=== PATIENT | male | born 1940 | race Caucasian/White ===

== ENCOUNTER 2017-10-02 18:48 | Inpatient (IN) | payer MEDICARE, MEDICAID ==
[2017-10-02 21:20] VITALS: BP 117/66
[2017-10-02] MEDS ORDERED: Magnesium Hydroxide (MOM) 30 mL UDC PO PRN (22:05)
[2017-10-03 06:24] LABS: % BASOPHILS 1.1 % (0.0-2.0); % EOSINOPHILS 4.5 % (0.0-5.0); % LYMPHOCYTES 21.8 % (20.0-50.0); % MONOCYTES 7.7 % (2.0-10.0); % NEUTROPHILS 64.9 % (40.0-80.0); BASOPHILE ABSOLUTE 0.1 Th/cumm (0-0.2); EOSINOPHILE ABSOLUTE 0.3 Th/cmm (0.1-0.4); HEMATOCRIT 42.8 % (41.0-60); HEMOGLOBIN 13.8 gm/dL (12-16); LYMPHOCYTE ABSOLUTE 1.5 Th/cmm (1.5-3.0); MEAN CELL VOLUME 89.4 fl (80-99); MEAN CORPUSCULAR HEMOGLOBIN 28.9 pg (27.0-31.0); MEAN CORPUSCULAR HGB CONC 32.4 pg (28.0-36.0); MEAN PLATELET VOLUME 9.6 fl; MONOCYTE ABSOLUTE 0.5 Th/cmm (0.3-1.0); NEUTROPHILE ABSOLUTE 4.4 Th/cmm (1.8-8.0); PLATELET COUNT 223 Th/cmm (150-400); RED BLOOD COUNT 4.78 Mil/cmm (3.80-5.80); RED CELL DISTRIBUTION WIDTH 15.4 % (11.5-20.0); WHITE BLOOD COUNT 6.8 Th/cmm (4.8-10.8)
[2017-10-03 06:40] LABS: ANION GAP 13.5 (7.0-16.0); BUN - UREA NITROGEN 18 mg/dL (7-25); CALCIUM SERUM 9.3 mg/dL (8.6-10.3); CARBON DIOXIDE 23.3 mEq/L (21.0-31.0); CHLORIDE 102 mEq/L (98-107); GLUCOSE 224 mg/dL (70-105); POTASSIUM SERUM 3.8 mEq/L (3.5-5.1); SODIUM SERUM 135 mEq/L (136-145)
--- NOTE | 2017-10-03 08:12 | History and Physical ---
History of Present Illness - HPI Chief Complaint: Psychosis HPI: 76 y/o male who was transferred from [facility] to [facility] for Psychosis. He was found in his backyard naked and confused. patient was BIBA after family notified EMS. Patient had no trauma noted. He stopped eating regularly per family. Patient was cooperative but restless. FBS was noted to be 426. Patient has a h/o DM on Lantus, h/o alcohol abuse and has history of KEN and dehydration. PMH includes progressive dementia, schizophrenia, acute encephalopathy Vital Signs: Last Vital Signs Temp 97.9 F 10/03/17 06:33 Pulse 90 10/03/17 06:33 Resp 19 10/03/17 06:33 BP 120/69 10/03/17 06:33 Pulse Ox 97 10/03/17 06:33 Past Medical History Cardiovascular: Report: No Pertinent Hx Pulmonary: Report: No Pertinent Hx PANMAN: Report: Dementia GI: Report: No Pertinent Hx Psych: Report: Psychosis, Schizophrenia Musculoskeletal: Report: No Pertinent Hx Rheumatologic: Report: No pertinent Hx Infectious Disease: Report: No Pertinent Hx Renal/: Report: No Pertinent Hx Endocrine: Report: Diabetes Dermatology: Report: No Pertinent Hx - Past Surgical History Past Surgical History: No pertinent Hx Social History Smoke: No Alcohol: Other (h/o of acute alcohol withdrawal) Drugs: None Lives: With Family - Medications Home Medications: Home Medication Medication Instructions Recorded Type Acetaminophen [Tylenol] 650 mg PO Q6HR PRN 10/02/17 History Heparin Sodium [Heparin*] See Protocol SUBQ Q12HR 10/02/17 History Insulin Glargine, Recombinan 15 unit SQ DAILY 10/02/17 History [Lantus] Insulin Lispro [Humalog] See Protocol SUBQ ACHS 10/02/17 History Lorazepam [Ativan] 0.5 mg PO Q6HR PRN 10/02/17 History Zolpidem Tartrate [Ambien] 5 mg PO HS PRN 10/02/17 History - Allergies Allergies/Adverse Reactions: Allergies Allergy/AdvReac Type Severity Reaction Status Date / Time No Known Allergies Allergy Verified 10/02/17 21:28 Review of Systems - Review of Systems Constitutional: Report: No Significant Eyes: Report: No Significant ENT: Report: No Significant Respiratory: Report: No Significant Cardiovascular: Report: No Significant Gastrointestinal: Report: No Significant Genitourinary: Report: No Significant Musculoskeletal: Report: No Significant Skin: Report: No Significant Neurological: Report: Other (psychosis) Physical Exam - Physical Exam HEENT: Report: Ears Nose Throat within normal limits, Pharnyx within normal limits Neck: Report: Within normal limits Cardiovascular Systems: Report: +s1/s2 noted, Regular, Rate and Rhythm Respiratory: Report: Breath Sounds are within normal limits Abdomen: Report: Non-tender to palpation Back: Report: Inspection of back is within normal limits. Skin: Report: Color of skin is within normal limits Neuro/Psych: Report: Mood affect is within normal limits, A+Ox3 - Lab Results All Lab Results last 24 hours: Laboratory Results - last 24 hr 10/03/17 10/03/17 06:10 06:10 WBC 6.8 RBC 4.78 Hgb 13.8 Hct 42.8 MCV 89.4 MCH 28.9 MCHC Differential 32.4 RDW 15.4 Plt Count 223 MPV 9.6 Neutrophils % 64.9 Lymphocytes % 21.8 Monocytes % 7.7 Eosinophils % 4.5 Basophils % 1.1 Sodium 135 L Potassium 3.8 Chloride 102 Carbon Dioxide 23.3 Anion Gap 13.5 BUN 18 Creatinine 1.0 Est GFR ( Amer) TNP Est GFR (Non-Af Amer) TNP BUN/Creatinine Ratio 18.0 Glucose 224 H Calcium 9.3 - Assessment Assessment: psychosis dementia schizophrenia h/o encephalopathy h/o alcohol withdrawal diabetes mellitus type 2 on insulin - Plan Plan: admit to [facility] will add TSH, Lipid profile, A1c to current labs. accucheck ac and hs low dose sliding scale.
[2017-10-03 08:29] LABS: CHOLESTEROL 144 mg/dL (<200); HDL -HIGH DENSITY LIPOPROTEIN 46 mg/dL (23-92); TRIGLYCERIDES 149 mg/dL (<150)
[2017-10-03] MEDS: Insulin Detemir 100 units/mL 10mL Vial SUBQ SCH (09:25)
[2017-10-03] MEDS ORDERED: Haloperidol Lactate 5 mg/mL 1mL Vial IM ONE (09:30)
[2017-10-03] MEDS ORDERED: Haloperidol Lactate 5 mg/mL 1mL Vial ONE (09:36)
[2017-10-03] MEDS: INSULIN ASPART SLIDING SCALE 100 UNITS/ML UNIT SUBQ SCH ×3 (17:09→21:00)
[2017-10-03 20:08] LABS: A1C % 9.4 % (4.0-6.0)
--- NOTE | 2017-10-03 22:25 | Psychosocial Evaluation ---
DATE OF SERVICE: PSYCHIATRIC INITIAL EVALUATION AND MENTAL STATUS EXAM PATIENT'S AGE: 76. SEX: Male. PHYSICIAN: Flora Rainey M.D., M.P.H. CHIEF COMPLAINT: Confusion and agitation. HISTORY OF PRESENT ILLNESS: The patient is a 76-year-old male who was found in the backyard confused and naked. The patient was brought into the hospital. The patient was agitated when he came into the hospital. He is a Macanese speaking and I got help with translation from the staff. The patient is currently still confused. He was talking to himself, laughing inappropriately. He was not able to tell me where he lives. Also, when I asked him about if he have any children, he also was not able to answer. Also, when asked about his date, he say December 27, but he was not able to say the year. Apparently, the patient has been having dementia. He also was clubbing his hand and he has been talking to imaginary objects and also according to service desk director, who was not making any sense with his answers. PAST PSYCHIATRIC HISTORY: Not known. PAST MEDICAL HISTORY: No known medical problems, apart from reviewing records from [facility]. The patient was given Haldol and also was given Pepcid and insulin. SOCIAL HISTORY: Not known at this time, but the patient was found in the backyard naked prior to his admission. No known history of alcohol or street drugs. Also, according to the report has not been eating and may be drinking alcohol prior to his admission. He also was hypertensive and tachycardic on the Emergency Room in the other hospital. ALLERGIES: No known allergies. MENTAL STATUS EXAMINATION: The patient appears his stated age. Anxious. Speaks Macanese. Rambling and according to the service desk director does not make sense and disorganized and the patient is confused. The patient did not answer question regarding hallucinations or delusions, but patient is actively hallucinating. The patient did not answer questions regarding suicide or homicide. The patient is alert and disoriented to time, place, person and situation. Impaired immediate, recent and remote memories and he could not even remember his date. Poor insight. Poor judgment. ASSESSMENT: PRIMARY DIAGNOSIS: Unspecified psychosis. SECONDARY DIAGNOSIS: Dementia, moderate to severe, with psychotic features. TREATMENT PLAN: We will monitor the patient's behavior and condition closely. We will start the patient on Seroquel and we will adjust the dose. ESTIMATED LENGTH OF STAY: 5-7 days. THE PATIENT'S STRENGTHS AND WEAKNESSES: The patient's strength is not clear at this time. Weakness is ineffective coping and his psychosis. AFTER DISCHARGE PLAN: Outpatient treatment and followup will continue as an outpatient. CRITERIA FOR DISCHARGE: The patient will not be psychotic and stabilize psychotropic medications. Also, placement if needed. [facility]# [id number]
--- NOTE | 2017-10-04 06:26 | General Progress Note ---
Subjective - Review of Systems Service Date: 10/04/17 Subjective: Awake, alert, afebrile. No acute distress VS T97.8 P95 R20 Objective - Results Result Diagrams: 10/03/17 06:10 10/03/17 06:10 Recent Labs: Laboratory Last Values WBC 6.8 Th/cmm (4.8-10.8) 10/03/17 06:10 RBC 4.78 Mil/cmm (3.80-5.80) 10/03/17 06:10 Hgb 13.8 gm/dL (12-16) 10/03/17 06:10 Hct 42.8 % (41.0-60) 10/03/17 06:10 MCV 89.4 fl (80-99) 10/03/17 06:10 MCH 28.9 pg (27.0-31.0) 10/03/17 06:10 MCHC Differential 32.4 pg (28.0-36.0) 10/03/17 06:10 RDW 15.4 % (11.5-20.0) 10/03/17 06:10 Plt Count 223 Th/cmm (150-400) 10/03/17 06:10 MPV 9.6 fl 10/03/17 06:10 Neutrophils % 64.9 % (40.0-80.0) 10/03/17 06:10 Lymphocytes % 21.8 % (20.0-50.0) 10/03/17 06:10 Monocytes % 7.7 % (2.0-10.0) 10/03/17 06:10 Eosinophils % 4.5 % (0.0-5.0) 10/03/17 06:10 Basophils % 1.1 % (0.0-2.0) 10/03/17 06:10 Sodium 135 mEq/L (136-145) L 10/03/17 06:10 Potassium 3.8 mEq/L (3.5-5.1) 10/03/17 06:10 Chloride 102 mEq/L (98-107) 10/03/17 06:10 Carbon Dioxide 23.3 mEq/L (21.0-31.0) 10/03/17 06:10 Anion Gap 13.5 (7.0-16.0) 10/03/17 06:10 BUN 18 mg/dL (7-25) 10/03/17 06:10 Creatinine 1.0 mg/dL (0.7-1.3) 10/03/17 06:10 Est GFR ( Amer) TNP 10/03/17 06:10 Est GFR (Non-Af Amer) TNP 10/03/17 06:10 BUN/Creatinine Ratio 18.0 10/03/17 06:10 Glucose 224 mg/dL (70-105) H 10/03/17 06:10 POC Glucose 253 MG/DL (70 - 105) H 10/03/17 19:53 Hemoglobin A1c % 9.4 % (4.0-6.0) H 10/03/17 06:10 Calcium 9.3 mg/dL (8.6-10.3) 10/03/17 06:10 Triglycerides 149 mg/dL (<150) 10/03/17 06:10 Cholesterol 144 mg/dL (<200) 10/03/17 06:10 LDL Cholesterol Direct 93 mg/dL (75-193) 10/03/17 06:10 HDL Cholesterol 46 mg/dL (23-92) 10/03/17 06:10 TSH 1.66 uIU/ml (0.34-5.60) 10/03/17 06:10 - Physical Exam Vitals and I&O: Vital Signs Temp 0 F 10/04/17 05:16 Pulse 95 10/03/17 21:22 Resp 20 10/03/17 21:22 BP 132/130 10/03/17 21:22 Pulse Ox 95 10/03/17 21:22 Intake & Output 10/03/17 10/03/17 10/04/17 06:59 18:59 06:59 Intake Total 120 1200 360 Balance 120 1200 360 Weight (lbs) 71.033 kg Intake: Oral 120 1200 360 Other: # Voids 3 3 # Bowel Movements 1 0 Active Medications: Current Medications Acetaminophen (Tylenol) 650 mg PO Q6HR PRN PRN Reason: mild to moderate pain Stop: 12/01/17 22:18 Last Admin: 10/03/17 17:08 Dose: 650 mg Famotidine (Pepcid) 20 mg PO BID IMMANUEL Stop: 12/02/17 08:59 Last Admin: 10/03/17 17:09 Dose: 20 mg Heparin Sodium (Porcine) (Heparin) 5,000 units SUBQ Q12HR IMMANUEL PRN Reason: Protocol Stop: 12/02/17 08:59 Last Admin: 10/03/17 21:00 Dose: 5,000 units Insulin Aspart (Novolog Insulin Sliding Scale) 0 units SUBQ ACHS IMMANUEL PRN Reason: Protocol Stop: 12/02/17 11:29 Last Admin: 10/03/17 21:00 Dose: 4 units Insulin Detemir (Levemir Insulin) 15 units SUBQ DAILY IMMANUEL Stop: 12/02/17 08:59 Last Admin: 10/03/17 09:25 Dose: 15 units Lorazepam (Ativan) 0.5 mg PO Q6HR PRN; Protocol PRN Reason: agitation Stop: 12/01/17 22:18 Last Admin: 10/03/17 23:00 Dose: 0.5 mg Magnesium Hydroxide (Milk Of Magnesia) 30 ml PO HS PRN PRN Reason: Constipation Metformin HCl (Glucophage) 500 mg PO DAILY [facility] Stop: 12/03/17 08:59 Quetiapine Fumarate (Seroquel) 25 mg PO DAILY IMMANUEL PRN Reason: Protocol Stop: 12/02/17 08:59 Last Admin: 10/03/17 09:26 Dose: 25 mg Zolpidem Tartrate (Ambien) 5 mg PO HS PRN PRN Reason: insomnia Stop: 12/01/17 22:18 General: Alert, Oriented x3, No acute distress HEENT: Atraumatic, PERRLA, EOMI Neck: Supple Cardiovascular: Regular rate, Normal S1, Normal S2 Lungs: Clear to auscultation Abdomen: Bowel sounds, Soft Assessment/Plan - Assessment Assessment: psychosis dementia schizophrenia h/o encephalopathy h/o alcohol withdrawal diabetes mellitus type 2 on insulin - Plan Plan: admit to [facility] will add TSH, Lipid profile, A1c to current labs. accucheck ac and hs low dose sliding scale.
[2017-10-04] MEDS: INSULIN ASPART SLIDING SCALE 100 UNITS/ML UNIT SUBQ SCH ×4 (06:58→21:00)
[2017-10-04] MEDS: Insulin Detemir 100 units/mL 10mL Vial SUBQ SCH (09:07)
[2017-10-05] MEDS: INSULIN ASPART SLIDING SCALE 100 UNITS/ML UNIT SUBQ SCH ×4 (06:56→21:52)
--- NOTE | 2017-10-05 11:04 | Progress Notes ---
DATE: SUBJECTIVE: The patient was seen, chart reviewed and discussed with staff. The patient seen in day room in a Kristina chair. Attempts to speak with the patient with a dredge mate, but was unsuccessful. The patient is actively psychotic, laughing inappropriately and very disorganized. He has ever been compliant with his medications. PLAN: The patient continues to be actively psychotic, confused, unable to make a safer realistic discharge so that he will require continued inpatient care center treatment. We will monitor patient on a daily basis for response to medication and titrate meds as needed. JOB# [id number]
[2017-10-05] MEDS: Insulin Detemir 100 units/mL 10mL Vial SUBQ SCH (12:40)
--- NOTE | 2017-10-05 18:27 | General Progress Note ---
Subjective - Review of Systems Service Date: 10/05/17 Subjective: Awake, alert, afebrile. No acute distress VS T97.7 P93 R18 BP140/76 BS 253-->254-->210 Objective - Results Result Diagrams: 10/03/17 06:10 10/03/17 06:10 Recent Labs: Laboratory Last Values WBC 6.8 Th/cmm (4.8-10.8) 10/03/17 06:10 RBC 4.78 Mil/cmm (3.80-5.80) 10/03/17 06:10 Hgb 13.8 gm/dL (12-16) 10/03/17 06:10 Hct 42.8 % (41.0-60) 10/03/17 06:10 MCV 89.4 fl (80-99) 10/03/17 06:10 MCH 28.9 pg (27.0-31.0) 10/03/17 06:10 MCHC Differential 32.4 pg (28.0-36.0) 10/03/17 06:10 RDW 15.4 % (11.5-20.0) 10/03/17 06:10 Plt Count 223 Th/cmm (150-400) 10/03/17 06:10 MPV 9.6 fl 10/03/17 06:10 Neutrophils % 64.9 % (40.0-80.0) 10/03/17 06:10 Lymphocytes % 21.8 % (20.0-50.0) 10/03/17 06:10 Monocytes % 7.7 % (2.0-10.0) 10/03/17 06:10 Eosinophils % 4.5 % (0.0-5.0) 10/03/17 06:10 Basophils % 1.1 % (0.0-2.0) 10/03/17 06:10 Sodium 135 mEq/L (136-145) L 10/03/17 06:10 Potassium 3.8 mEq/L (3.5-5.1) 10/03/17 06:10 Chloride 102 mEq/L (98-107) 10/03/17 06:10 Carbon Dioxide 23.3 mEq/L (21.0-31.0) 10/03/17 06:10 Anion Gap 13.5 (7.0-16.0) 10/03/17 06:10 BUN 18 mg/dL (7-25) 10/03/17 06:10 Creatinine 1.0 mg/dL (0.7-1.3) 10/03/17 06:10 Est GFR ( Amer) TNP 10/03/17 06:10 Est GFR (Non-Af Amer) TNP 10/03/17 06:10 BUN/Creatinine Ratio 18.0 10/03/17 06:10 Glucose 224 mg/dL (70-105) H 10/03/17 06:10 POC Glucose 210 MG/DL (70 - 105) H 10/05/17 05:55 Hemoglobin A1c % 9.4 % (4.0-6.0) H 10/03/17 06:10 Calcium 9.3 mg/dL (8.6-10.3) 10/03/17 06:10 Triglycerides 149 mg/dL (<150) 10/03/17 06:10 Cholesterol 144 mg/dL (<200) 10/03/17 06:10 LDL Cholesterol Direct 93 mg/dL (75-193) 10/03/17 06:10 HDL Cholesterol 46 mg/dL (23-92) 10/03/17 06:10 TSH 1.66 uIU/ml (0.34-5.60) 10/03/17 06:10 - Physical Exam Vitals and I&O: Vital Signs Temp 97.7 F 10/05/17 14:38 Pulse 93 10/05/17 14:38 Resp 18 10/05/17 14:38 BP 140/76 10/05/17 14:38 Pulse Ox 97 10/05/17 14:38 Intake & Output 10/04/17 10/05/17 10/05/17 18:59 06:59 18:59 Intake Total 500 240 480 Output Total 1 Balance 500 240 479 Intake: Oral 500 240 480 Output: Urine 1 Other: # Voids 2 1 1 # Bowel Movements 1 Active Medications: Current Medications Acetaminophen (Tylenol) 650 mg PO Q6HR PRN PRN Reason: mild to moderate pain Stop: 12/01/17 22:18 Last Admin: 10/03/17 17:08 Dose: 650 mg Famotidine (Pepcid) 20 mg PO BID IMMANUEL Stop: 12/02/17 08:59 Last Admin: 10/05/17 16:09 Dose: Not Given Heparin Sodium (Porcine) (Heparin) 5,000 units SUBQ Q12HR IMMANUEL PRN Reason: Protocol Stop: 12/02/17 08:59 Last Admin: 10/05/17 12:40 Dose: Not Given Insulin Aspart (Novolog Insulin Sliding Scale) 0 units SUBQ ACHS IMMANUEL PRN Reason: Protocol Stop: 12/02/17 11:29 Last Admin: 10/05/17 16:09 Dose: Not Given Insulin Detemir (Levemir Insulin) 15 units SUBQ DAILY [facility] Stop: 12/02/17 08:59 Last Admin: 10/05/17 12:40 Dose: Not Given Lorazepam (Ativan) 0.5 mg PO Q6HR PRN; Protocol PRN Reason: agitation Stop: 12/01/17 22:18 Last Admin: 10/04/17 20:54 Dose: 0.5 mg Magnesium Hydroxide (Milk Of Magnesia) 30 ml PO HS PRN PRN Reason: Constipation Metformin HCl (Glucophage) 500 mg PO DAILY [facility] Stop: 12/03/17 08:59 Last Admin: 10/05/17 12:40 Dose: Not Given Quetiapine Fumarate (Seroquel) 25 mg PO DAILY IMMANUEL PRN Reason: Protocol Stop: 12/02/17 08:59 Last Admin: 10/05/17 12:40 Dose: Not Given Zolpidem Tartrate (Ambien) 5 mg PO HS PRN PRN Reason: insomnia Stop: 12/01/17 22:18 Last Admin: 10/04/17 20:55 Dose: 5 mg General: Alert, Oriented x3, No acute distress HEENT: Atraumatic, PERRLA, EOMI Neck: Supple Cardiovascular: Regular rate, Normal S1, Normal S2 Lungs: Clear to auscultation Abdomen: Bowel sounds, Soft Extremities: no Clubbing, no Cyanosis, no Edema Assessment/Plan - Assessment Assessment: psychosis dementia schizophrenia h/o encephalopathy h/o alcohol withdrawal diabetes mellitus type 2 on insulin elevated Blood pressure elevated ... - Plan Plan[facility] will add TSH, Lipid profile, A1c to current labs. accucheck ac and hs low dose sliding scale. add Clonidine 0.1mg PO q8 increase Levemir 20mg units SQ Nutritional Asmnt/Malnutr-PDOC - Dietary Evaluation Malnutrition Findings (Please click <Entered> for more info): Nutritional Asmnt/Malnutrition Start: 10/04/17 10: 07 Text: Status: Complete Freq: Document 10/04/17 10:07 TC (Rec: 10/04/17 10:20 TC [email or web address]) Nutritional Asmnt/Malnutrition Patient General Information Nutritional Screening High Risk Diagnosis Psychosis NOS Pertinent Medical Hx/Surgical Hx Dementia, Schizophrenia, acute encephalopathy, diabetes Subjective Information Patient was transferred from [facility]. Per H&P, FBS was 426. Patient is primarily Greek speaking. Patient was asleep in bed at time of RD visit. Current Diet Order/ Nutrition Support 60gm CCHO Patient / S.O Not Indicated Pertinent Medications Pepcid, Novolog, Levemir, MOM, Metformin Pertinent Labs Glucose 156-253 since admission, HGA1C 9.4 Nutritional Hx/Data Height 1.78 m Height (Calculated Centimeters) 177.8 Current Weight (lbs) 70.76 kg Weight (Calculated Kilograms) 70.8 Weight (Calculated Grams) 46554.4 [place] Body Weight 166 % [place] Body Weight 93 Body Mass Index (BMI) 22.4 Recent Weight Change No Weight Status Approriate GI Symptoms GI Symptoms None Last BM 10/03 x 1 Difficult in: None Food Allergies No Cultural/Ethnic/Yazdanism Belief None noted Usual diet at home Unknown Skin Integrity/Comment: Anuel 18, dryness, area of concern, bruises Current %PO Good (75-100%) Estimated Nutritional Goals BEE in Kcals: Using Current wt Calories/Kcals/Kg (based on CBW 70.8kg, 25-30 kcal/kg) Kcals Calculated ~2107-7690 kcal/day Protein: Using Current wt Protein g/k gm/kg Protein Calculated ~70 gm/day Fluid: ml ~6836-3198 ml/day (1 ml/kcal) Nutritional Problem 1. Problem Problem Altered nutrition related lab values related to Etiology uncontrolled hyperglycemia aeb Signs/Symptoms: Glucose 156-253 since admission, HGA1C 9.4 Intervention/Recommendation Comments 1. Continue 60 gm CCHO diet as tolerated by patient. 2. MD to modify insulin regimen for optimal glycemic control. Expected Outcomes/Goals Expected Outcomes/Goals Oral intake >75% of meals, nutrition related labs WNL, weight stable F/U LR 10/11
--- NOTE | 2017-10-05 21:18 | Progress Notes ---
DATE: SUBJECTIVE: The patient seen, chart reviewed, and discussed with staff. The patient continues to be very irritated, confused, today, refusing to have any solid foods as well as his medications. He is extremely disorganized, unable to answer questions in a coherent manner. PLAN: The patient continues to be actively psychotic. It was felt that he is unable to make realistic discharge plan and will need continued inpatient care. We will monitor patient on a daily basis for response to medication and titrate medications as needed. [facility]# [id number]
[2017-10-06] MEDS: INSULIN ASPART SLIDING SCALE 100 UNITS/ML UNIT SUBQ SCH ×3 (07:01→22:00)
--- NOTE | 2017-10-06 08:03 | General Progress Note ---
Subjective - Review of Systems Service Date: 10/06/17 Subjective: Awake, alert, afebrile. No acute distress VS T97.8 P105 R18 BP150/83 BS 253-->254-->210-->483-->263 Objective - Results Result Diagrams: 10/03/17 06:10 10/03/17 06:10 Recent Labs: Laboratory Last Values WBC 6.8 Th/cmm (4.8-10.8) 10/03/17 06:10 RBC 4.78 Mil/cmm (3.80-5.80) 10/03/17 06:10 Hgb 13.8 gm/dL (12-16) 10/03/17 06:10 Hct 42.8 % (41.0-60) 10/03/17 06:10 MCV 89.4 fl (80-99) 10/03/17 06:10 MCH 28.9 pg (27.0-31.0) 10/03/17 06:10 MCHC Differential 32.4 pg (28.0-36.0) 10/03/17 06:10 RDW 15.4 % (11.5-20.0) 10/03/17 06:10 Plt Count 223 Th/cmm (150-400) 10/03/17 06:10 MPV 9.6 fl 10/03/17 06:10 Neutrophils % 64.9 % (40.0-80.0) 10/03/17 06:10 Lymphocytes % 21.8 % (20.0-50.0) 10/03/17 06:10 Monocytes % 7.7 % (2.0-10.0) 10/03/17 06:10 Eosinophils % 4.5 % (0.0-5.0) 10/03/17 06:10 Basophils % 1.1 % (0.0-2.0) 10/03/17 06:10 Sodium 135 mEq/L (136-145) L 10/03/17 06:10 Potassium 3.8 mEq/L (3.5-5.1) 10/03/17 06:10 Chloride 102 mEq/L (98-107) 10/03/17 06:10 Carbon Dioxide 23.3 mEq/L (21.0-31.0) 10/03/17 06:10 Anion Gap 13.5 (7.0-16.0) 10/03/17 06:10 BUN 18 mg/dL (7-25) 10/03/17 06:10 Creatinine 1.0 mg/dL (0.7-1.3) 10/03/17 06:10 Est GFR ( Amer) TNP 10/03/17 06:10 Est GFR (Non-Af Amer) TNP 10/03/17 06:10 BUN/Creatinine Ratio 18.0 10/03/17 06:10 Glucose 483 mg/dL (70-105) H* 10/05/17 22:13 POC Glucose 263 MG/DL (70 - 105) H 10/06/17 06:43 Hemoglobin A1c % 9.4 % (4.0-6.0) H 10/03/17 06:10 Calcium 9.3 mg/dL (8.6-10.3) 10/03/17 06:10 Triglycerides 149 mg/dL (<150) 10/03/17 06:10 Cholesterol 144 mg/dL (<200) 10/03/17 06:10 LDL Cholesterol Direct 93 mg/dL (75-193) 10/03/17 06:10 HDL Cholesterol 46 mg/dL (23-92) 10/03/17 06:10 TSH 1.66 uIU/ml (0.34-5.60) 10/03/17 06:10 - Physical Exam Vitals and I&O: Vital Signs Temp 97.8 F 10/06/17 06:32 Pulse 100 10/06/17 06:32 Resp 20 10/06/17 06:32 BP 150/83 10/06/17 06:32 Pulse Ox 96 10/06/17 06:32 Intake & Output 10/05/17 10/06/17 10/06/17 18:59 06:59 18:59 Intake Total 480 240 Output Total 1 Balance 479 240 Intake: Oral 480 240 Output: Urine 1 Other: # Voids 1 1 # Bowel Movements 1 1 Active Medications: Current Medications Acetaminophen (Tylenol) 650 mg PO Q6HR PRN PRN Reason: mild to moderate pain Stop: 12/01/17 22:18 Last Admin: 10/03/17 17:08 Dose: 650 mg Famotidine (Pepcid) 20 mg PO BID [facility] Stop: 12/02/17 08:59 Last Admin: 10/05/17 16:09 Dose: Not Given Heparin Sodium (Porcine) (Heparin) 5,000 units SUBQ Q12HR [facility] PRN Reason: Protocol Stop: 12/02/17 08:59 Last Admin: 10/05/17 21:51 Dose: 5,000 units Insulin Aspart (Novolog Insulin Sliding Scale) 0 units SUBQ ACHS [facility] PRN Reason: Protocol Stop: 12/02/17 11:29 Last Admin: 10/06/17 07:01 Dose: 6 units Insulin Detemir (Levemir Insulin) 20 units SUBQ DAILY [facility] PRN Reason: Protocol Stop: 12/05/17 08:59 Lorazepam (Ativan) 0.5 mg PO Q6HR PRN; Protocol PRN Reason: agitation Stop: 12/01/17 22:18 Last Admin: 10/05/17 21:58 Dose: 0.5 mg Magnesium Hydroxide (Milk Of Magnesia) 30 ml PO HS PRN PRN Reason: Constipation Metformin HCl (Glucophage) 1,000 mg PO DAILY [facility] Stop: 12/05/17 08:59 Metoprolol Succinate (Toprol Xl) 25 mg PO DAILY [facility] Stop: 12/05/17 08:59 Quetiapine Fumarate (Seroquel) 25 mg PO DAILY [facility] PRN Reason: Protocol Stop: 12/02/17 08:59 Last Admin: 10/05/17 12:40 Dose: Not Given Zolpidem Tartrate (Ambien) 5 mg PO HS PRN PRN Reason: insomnia Stop: 12/01/17 22:18 Last Admin: 10/05/17 21:14 Dose: 5 mg General: Alert, Oriented x3, No acute distress HEENT: Atraumatic, PERRLA, EOMI Neck: Supple Cardiovascular: Regular rate, Normal S1, Normal S2 Lungs: Clear to auscultation Abdomen: Bowel sounds, Soft Extremities: no Clubbing, no Cyanosis, no Edema Assessment/Plan - Assessment Assessment: psychosis dementia schizophrenia h/o encephalopathy h/o alcohol withdrawal diabetes mellitus type 2 on insulin elevated Blood pressure elevated ... - Plan Plan: admit to [facility] will add TSH, Lipid profile, A1c to current labs. accucheck ac and hs low dose sliding scale. add Clonidine 0.1mg PO q8 increase Levemir 20mg units SQ increase metformin to 1000mg daily add Toprol XL 25mg PO daily Nutritional Asmnt/Malnutr-PDOC - Dietary Evaluation Malnutrition Findings (Please click <Entered> for more info): Nutritional Asmnt/Malnutrition Start: 10/04/17 10: 07 Text: Status: Complete Freq: Document 10/04/17 10:07 TC (Rec: 10/04/17 10:20 TC [email or web address]) Nutritional Asmnt/Malnutrition Patient General Information Nutritional Screening High Risk Diagnosis Psychosis NOS Pertinent Medical Hx/Surgical Hx Dementia, Schizophrenia, acute encephalopathy, diabetes Subjective Information Patient was transferred from [facility]. Per H&P, FBS was 426. Patient is primarily Telugu speaking. Patient was asleep in bed at time of RD visit. Current Diet Order/ Nutrition Support 60gm CCHO Patient / S.O Not Indicated Pertinent Medications Pepcid, Novolog, Levemir, MOM, Metformin Pertinent Labs Glucose 156-253 since admission, HGA1C 9.4 Nutritional Hx/Data Height 1.78 m Height (Calculated Centimeters) 177.8 Current Weight (lbs) 70.76 kg Weight (Calculated Kilograms) 70.8 Weight (Calculated Grams) 07674.4 [place] Body Weight 166 % [place] Body Weight 93 Body Mass Index (BMI) 22.4 Recent Weight Change No Weight Status Approriate GI Symptoms GI Symptoms None Last BM 10/03 x 1 Difficult in: None Food Allergies No Cultural/Ethnic/Yazidi Belief None noted Usual diet at home Unknown Skin Integrity/Comment: Anuel 18, dryness, area of concern, bruises Current %PO Good (75-100%) Estimated Nutritional Goals BEE in Kcals: Using Current wt Calories/Kcals/Kg (based on CBW 70.8kg, 25-30 kcal/kg) Kcals Calculated ~9507-0215 kcal/day Protein: Using Current wt Protein g/k gm/kg Protein Calculated ~70 gm/day Fluid: ml ~4906-8166 ml/day (1 ml/kcal) Nutritional Problem 1. Problem Problem Altered nutrition related lab values related to Etiology uncontrolled hyperglycemia aeb Signs/Symptoms: Glucose 156-253 since admission, HGA1C 9.4 Intervention/Recommendation Comments 1. Continue 60 gm CCHO diet as tolerated by patient. 2. MD to modify insulin regimen for optimal glycemic control. Expected Outcomes/Goals Expected Outcomes/Goals Oral intake >75% of meals, nutrition related labs WNL, weight stable F/U LR 10/11
[2017-10-06] MEDS: Insulin Detemir 100 units/mL 10mL Vial SUBQ SCH (12:26)
--- NOTE | 2017-10-06 23:11 | Progress Notes ---
DATE: 10/06/2017 SUBJECTIVE: Chart reviewed and the patient interviewed. Also discussed the patient's condition with the staff and reviewed records and labs. The patient is still extremely angry and is in irritable mood. The patient also is quick to respond and gets angry and agitated easily. He also is still uncooperative with the staff. The patient refused to take his Accu-Chek and takes the metformin. Also, he is getting aggressive while the staff trying to help him with his ADLs. He also is still suspicious and paranoid and in angry mood. ASSESSMENT: The patient is still aggressive and paranoid. TREATMENT PLAN: We will continue monitoring his behavior and his condition closely. Also, encouraged the patient to take his medications including his metformin because his blood sugar on 10/02/2017 was 483. Also, we will continue to work on his irritability and anger and continue to followup closely. [facility]# [id number]
--- NOTE | 2017-10-07 06:34 | General Progress Note ---
Subjective - Review of Systems Service Date: 10/07/17 Subjective: Awake, alert, afebrile. Patient continues to be irritable and in angry mood towards staff which may be the cause of his elevated blood pressure. Patient is somewhat suspicious and paranoid. As a result his blood sugars continue to be elevated. No new vitals this morning or blood sugars since yesterday. VS T97.8 P105 R18 BP150/83 BS 253-->254-->210-->483-->263 Objective - Results Result Diagrams: 10/03/17 06:10 10/03/17 06:10 Recent Labs: Laboratory Last Values WBC 6.8 Th/cmm (4.8-10.8) 10/03/17 06:10 RBC 4.78 Mil/cmm (3.80-5.80) 10/03/17 06:10 Hgb 13.8 gm/dL (12-16) 10/03/17 06:10 Hct 42.8 % (41.0-60) 10/03/17 06:10 MCV 89.4 fl (80-99) 10/03/17 06:10 MCH 28.9 pg (27.0-31.0) 10/03/17 06:10 MCHC Differential 32.4 pg (28.0-36.0) 10/03/17 06:10 RDW 15.4 % (11.5-20.0) 10/03/17 06:10 Plt Count 223 Th/cmm (150-400) 10/03/17 06:10 MPV 9.6 fl 10/03/17 06:10 Neutrophils % 64.9 % (40.0-80.0) 10/03/17 06:10 Lymphocytes % 21.8 % (20.0-50.0) 10/03/17 06:10 Monocytes % 7.7 % (2.0-10.0) 10/03/17 06:10 Eosinophils % 4.5 % (0.0-5.0) 10/03/17 06:10 Basophils % 1.1 % (0.0-2.0) 10/03/17 06:10 Sodium 135 mEq/L (136-145) L 10/03/17 06:10 Potassium 3.8 mEq/L (3.5-5.1) 10/03/17 06:10 Chloride 102 mEq/L (98-107) 10/03/17 06:10 Carbon Dioxide 23.3 mEq/L (21.0-31.0) 10/03/17 06:10 Anion Gap 13.5 (7.0-16.0) 10/03/17 06:10 BUN 18 mg/dL (7-25) 10/03/17 06:10 Creatinine 1.0 mg/dL (0.7-1.3) 10/03/17 06:10 Est GFR ( Amer) TNP 10/03/17 06:10 Est GFR (Non-Af Amer) TNP 10/03/17 06:10 BUN/Creatinine Ratio 18.0 10/03/17 06:10 Glucose 483 mg/dL (70-105) H* 10/05/17 22:13 POC Glucose 263 MG/DL (70 - 105) H 10/06/17 06:43 Hemoglobin A1c % 9.4 % (4.0-6.0) H 10/03/17 06:10 Calcium 9.3 mg/dL (8.6-10.3) 10/03/17 06:10 Triglycerides 149 mg/dL (<150) 10/03/17 06:10 Cholesterol 144 mg/dL (<200) 10/03/17 06:10 LDL Cholesterol Direct 93 mg/dL (75-193) 10/03/17 06:10 HDL Cholesterol 46 mg/dL (23-92) 10/03/17 06:10 TSH 1.66 uIU/ml (0.34-5.60) 10/03/17 06:10 - Physical Exam Vitals and I&O: Vital Signs Temp 97.8 F 10/06/17 06:32 Pulse 100 10/06/17 06:32 Resp 20 10/06/17 06:32 BP 150/83 10/06/17 06:32 Pulse Ox 96 10/06/17 06:32 Intake & Output 10/06/17 10/06/17 10/07/17 06:59 18:59 06:59 Intake Total 240 120 Output Total 3 Balance 240 117 Intake: Oral 240 120 Output: Urine 3 Other: # Voids 1 # Bowel Movements 1 1 Active Medications: Current Medications Acetaminophen (Tylenol) 650 mg PO Q6HR PRN PRN Reason: mild to moderate pain Stop: 12/01/17 22:18 Last Admin: 10/03/17 17:08 Dose: 650 mg Famotidine (Pepcid) 20 mg PO BID [facility] Stop: 12/02/17 08:59 Last Admin: 10/06/17 12:26 Dose: Not Given Heparin Sodium (Porcine) (Heparin) 5,000 units SUBQ Q12HR [facility] PRN Reason: Protocol Stop: 12/02/17 08:59 Last Admin: 10/06/17 22:00 Dose: 5,000 units Insulin Aspart (Novolog Insulin Sliding Scale) 0 units SUBQ ACHS I[facility] PRN Reason: Protocol Stop: 12/02/17 11:29 Last Admin: 10/06/17 22:00 Dose: 10 units Insulin Detemir (Levemir Insulin) 20 units SUBQ DAILY [facility] PRN Reason: Protocol Stop: 12/05/17 08:59 Last Admin: 10/06/17 12:26 Dose: Not Given Lorazepam (Ativan) 0.5 mg PO Q6HR PRN; Protocol PRN Reason: agitation Stop: 12/01/17 22:18 Last Admin: 10/05/17 21:58 Dose: 0.5 mg Magnesium Hydroxide (Milk Of Magnesia) 30 ml PO HS PRN PRN Reason: Constipation Metformin HCl (Glucophage) 1,000 mg PO DAILY [facility] Stop: 12/05/17 08:59 Last Admin: 10/06/17 12:27 Dose: Not Given Metoprolol Succinate (Toprol Xl) 25 mg PO DAILY [facility] Stop: 12/05/17 11:29 Last Admin: 10/06/17 12:27 Dose: Not Given Quetiapine Fumarate (Seroquel) 25 mg PO DAILY [facility] PRN Reason: Protocol Stop: 12/02/17 08:59 Last Admin: 10/06/17 12:27 Dose: Not Given Zolpidem Tartrate (Ambien) 5 mg PO HS PRN PRN Reason: insomnia Stop: 12/01/17 22:18 Last Admin: 10/05/17 21:14 Dose: 5 mg General: Alert, Oriented x3, No acute distress HEENT: Atraumatic, PERRLA, EOMI Neck: Supple Cardiovascular: Regular rate, Normal S1, Normal S2 Lungs: Clear to auscultation Abdomen: Bowel sounds, Soft Extremities: no Clubbing, no Cyanosis, no Edema Assessment/Plan - Assessment Assessment: psychosis dementia schizophrenia h/o encephalopathy h/o alcohol withdrawal diabetes mellitus type 2 on insulin elevated Blood pressure elevated ... - Plan Plan: [facility] will add TSH, Lipid profile, A1c to current labs. accucheck ac and hs low dose sliding scale. add Clonidine 0.1mg PO q8 increase Levemir 20mg units SQ increase metformin to 1000mg daily add Toprol XL 25mg PO daily Nutritional Asmnt/Malnutr-PDOC - Dietary Evaluation Malnutrition Findings (Please click <Entered> for more info): Nutritional Asmnt/Malnutrition Start: 10/04/17 10: 07 Text: Status: Complete Freq: Document 10/04/17 10:07 TC (Rec: 10/04/17 10:20 [email or web address] [email or web address]) Nutritional Asmnt/Malnutrition Patient General Information Nutritional Screening High Risk Diagnosis Psychosis NOS Pertinent Medical Hx/Surgical Hx Dementia, Schizophrenia, acute encephalopathy, diabetes Subjective Information Patient was transferred from [facility]. Per H&P, FBS was 426. Patient is primarily French speaking. Patient was asleep in bed at time of RD visit. Current Diet Order/ [facility] / S.O Not Indicated Pertinent Medications Pepcid, Novolog, Levemir, MOM, Metformin Pertinent Labs Glucose 156-253 since admission, HGA1C 9.4 Nutritional Hx/Data Height 1.78 m Height (Calculated Centimeters) 177.8 Current Weight (lbs) 70.76 kg Weight (Calculated Kilograms) 70.8 Weight (Calculated Grams) 47645.4 [place] Body Weight 166 % [place] Body Weight 93 Body Mass Index (BMI) 22.4 Recent Weight Change No Weight Status Approriate GI Symptoms GI Symptoms None Last BM 10/03 x 1 Difficult in: None Food Allergies No Cultural/Ethnic/Hindu Belief None noted Usual diet at home Unknown Skin Integrity/Comment: Anuel 18, dryness, area of concern, bruises Current %PO Good (75-100%) Estimated Nutritional Goals BEE in Kcals: Using Current wt Calories/Kcals/Kg (based on CBW 70.8kg, 25-30 kcal/kg) Kcals Calculated ~5995-8403 kcal/day Protein: Using Current wt Protein g/k gm/kg Protein Calculated ~70 gm/day Fluid: ml ~8722-3150 ml/day (1 ml/kcal) Nutritional Problem 1. Problem Problem Altered nutrition related lab values related to Etiology uncontrolled hyperglycemia aeb Signs/Symptoms: Glucose 156-253 since admission, HGA1C 9.4 Intervention/Recommendation Comments 1. Continue 60 gm CCHO diet as tolerated by patient. 2. MD to modify insulin regimen for optimal glycemic control. Expected Outcomes/Goals Expected Outcomes/Goals Oral intake >75% of meals, nutrition related labs WNL, weight stable F/U LR 10/11
[2017-10-07] MEDS: INSULIN ASPART SLIDING SCALE 100 UNITS/ML UNIT SUBQ SCH ×3 (06:58→21:03)
--- NOTE | 2017-10-07 07:07 | Progress Notes ---
DATE: SUBJECTIVE: Chart reviewed and the patient interviewed. Also discussed the patient's condition with the staff and reviewed records and labs. The patient continued to be severely agitated and in angry and in irritable mood. The patient also is restless and he is suspicious and paranoid. The patient also has tried to throw a pillow towards myself and he is also throwing objects towards staff. The patient also is sexually inappropriate and grabbing female staff during helping him with his ADLs. Also, during the interview, the patient seems to be preoccupied and rambling and unable to answer any of the questions currently. ASSESSMENT: The patient is still psychotic. TREATMENT PLAN: Continue to monitor his behavior and his condition closely. Also, we will increase Seroquel to 75 mg 3 times a day and will continue to work on his poor impulse control and his irritability. JOB# [id number]
[2017-10-07] MEDS: Insulin Detemir 100 units/mL 10mL Vial SUBQ SCH (09:20)
[2017-10-08] MEDS: INSULIN ASPART SLIDING SCALE 100 UNITS/ML UNIT SUBQ SCH ×4 (06:55→21:57)
--- NOTE | 2017-10-08 08:36 | General Progress Note ---
Subjective - Review of Systems Service Date: 10/08/17 Subjective: Awake, alert, afebrile. Patient continues to be irritable and in angry mood towards staff which may be the cause of his elevated blood pressure. Patient is somewhat suspicious and paranoid. As a result his blood sugars continue to be elevated. No new vitals this morning or blood sugars since yesterday. VS T96.5 P112 R20 BP134/80 BS 253-->254-->210-->483-->263-->205-->250 Objective - Results Result Diagrams: 10/03/17 06:10 10/03/17 06:10 Recent Labs: Laboratory Last Values WBC 6.8 Th/cmm (4.8-10.8) 10/03/17 06:10 RBC 4.78 Mil/cmm (3.80-5.80) 10/03/17 06:10 Hgb 13.8 gm/dL (12-16) 10/03/17 06:10 Hct 42.8 % (41.0-60) 10/03/17 06:10 MCV 89.4 fl (80-99) 10/03/17 06:10 MCH 28.9 pg (27.0-31.0) 10/03/17 06:10 MCHC Differential 32.4 pg (28.0-36.0) 10/03/17 06:10 RDW 15.4 % (11.5-20.0) 10/03/17 06:10 Plt Count 223 Th/cmm (150-400) 10/03/17 06:10 MPV 9.6 fl 10/03/17 06:10 Neutrophils % 64.9 % (40.0-80.0) 10/03/17 06:10 Lymphocytes % 21.8 % (20.0-50.0) 10/03/17 06:10 Monocytes % 7.7 % (2.0-10.0) 10/03/17 06:10 Eosinophils % 4.5 % (0.0-5.0) 10/03/17 06:10 Basophils % 1.1 % (0.0-2.0) 10/03/17 06:10 Sodium 135 mEq/L (136-145) L 10/03/17 06:10 Potassium 3.8 mEq/L (3.5-5.1) 10/03/17 06:10 Chloride 102 mEq/L (98-107) 10/03/17 06:10 Carbon Dioxide 23.3 mEq/L (21.0-31.0) 10/03/17 06:10 Anion Gap 13.5 (7.0-16.0) 10/03/17 06:10 BUN 18 mg/dL (7-25) 10/03/17 06:10 Creatinine 1.0 mg/dL (0.7-1.3) 10/03/17 06:10 Est GFR ( Amer) TNP 10/03/17 06:10 Est GFR (Non-Af Amer) TNP 10/03/17 06:10 BUN/Creatinine Ratio 18.0 10/03/17 06:10 Glucose 483 mg/dL (70-105) H* 10/05/17 22:13 POC Glucose 250 MG/DL (70 - 105) H 10/08/17 06:43 Hemoglobin A1c % 9.4 % (4.0-6.0) H 10/03/17 06:10 Calcium 9.3 mg/dL (8.6-10.3) 10/03/17 06:10 Triglycerides 149 mg/dL (<150) 10/03/17 06:10 Cholesterol 144 mg/dL (<200) 10/03/17 06:10 LDL Cholesterol Direct 93 mg/dL (75-193) 10/03/17 06:10 HDL Cholesterol 46 mg/dL (23-92) 10/03/17 06:10 TSH 1.66 uIU/ml (0.34-5.60) 10/03/17 06:10 - Physical Exam Vitals and I&O: Vital Signs Temp 96.5 F 10/08/17 06:57 Pulse 112 10/08/17 06:57 Resp 20 10/08/17 06:57 BP 134/80 10/08/17 06:57 Pulse Ox 94 10/08/17 06:57 Intake & Output 10/07/17 10/08/17 10/08/17 18:59 06:59 18:59 Intake Total 500 Balance 500 Intake: Oral 500 Other: # Voids 2 # Bowel Movements 0 Active Medications: Current Medications Acetaminophen (Tylenol) 650 mg PO Q6HR PRN PRN Reason: mild to moderate pain Stop: 12/01/17 22:18 Last Admin: 10/03/17 17:08 Dose: 650 mg Famotidine (Pepcid) 20 mg PO BID [facility] Stop: 12/02/17 08:59 Last Admin: 10/07/17 09:20 Dose: Not Given Heparin Sodium (Porcine) (Heparin) 5,000 units SUBQ Q12HR IMMANUEL PRN Reason: Protocol Stop: 12/02/17 08:59 Last Admin: 10/07/17 21:03 Dose: Not Given Insulin Aspart (Novolog Insulin Sliding Scale) 0 units SUBQ ACHS IMMANUEL PRN Reason: Protocol Stop: 12/02/17 11:29 Last Admin: 10/08/17 06:55 Dose: 4 units Insulin Detemir (Levemir Insulin) 20 units SUBQ DAILY IMM[facility]UEL PRN Reason: Protocol Stop: 12/05/17 08:59 Last Admin: 10/07/17 09:20 Dose: Not Given Lorazepam (Ativan) 0.5 mg PO Q6HR PRN; Protocol PRN Reason: agitation Stop: 12/01/17 22:18 Last Admin: 10/05/17 21:58 Dose: 0.5 mg Magnesium Hydroxide (Milk Of Magnesia) 30 ml PO HS PRN PRN Reason: Constipation Metformin HCl (Glucophage) 1,000 mg PO DAILY [facility] Stop: 12/05/17 08:59 Last Admin: 10/07/17 09:20 Dose: Not Given Metoprolol Succinate (Toprol Xl) 25 mg PO DAILY [facility] Stop: 12/05/17 11:29 Last Admin: 10/07/17 09:20 Dose: Not Given Quetiapine Fumarate (Seroquel) 25 mg PO DAILY IMMANUEL PRN Reason: Protocol Stop: 12/02/17 08:59 Last Admin: 10/07/17 09:21 Dose: Not Given Zolpidem Tartrate (Ambien) 5 mg PO HS PRN PRN Reason: insomnia Stop: 12/01/17 22:18 Last Admin: 10/05/17 21:14 Dose: 5 mg General: Alert, Oriented x3, No acute distress HEENT: Atraumatic, PERRLA, EOMI Neck: Supple Cardiovascular: Regular rate, Normal S1, Normal S2 Lungs: Clear to auscultation Abdomen: Bowel sounds, Soft Extremities: no Clubbing, no Cyanosis, no Edema Assessment/Plan - Assessment Assessment: psychosis dementia schizophrenia h/o encephalopathy h/o alcohol withdrawal diabetes mellitus type 2 on insulin .. improved. HTN ... improved - [facility] T[facility], Lipid profile, A1c to current labs. accucheck ac and hs low dose sliding scale. add Clonidine 0.1mg PO q8 increase Levemir 20mg units SQ increase metformin to 1000mg daily add Toprol XL 25mg PO daily Nutritional Asmnt/Malnutr-PDOC - Dietary Evaluation Malnutrition Findings (Please click <Entered> for more info): Nutritional Asmnt/Malnutrition Start: 10/04/17 10: 07 Text: Status: Complete Freq: Document 10/04/17 10:07 TC (Rec: 10/04/17 10:20 TC FRANK- [email or web address]) Nutritional Asmnt/Malnutrition Patient General Information Nutritional Screening High Risk Diagnosis Psychosis NOS Pertinent Medical Hx/Surgical Hx Dementia, Schizophrenia, acute encephalopathy, diabetes Subjective Information Patient was transferred from [facility]. Per H&P, FBS was 426. Patient is primarily Dutch speaking. Patient was asleep in bed at time of RD visit. Current Diet Order/ [facility] / S[facility] Not Indicated Pertinent Medications Pepcid, Novolog, Levemir, MOM, Metformin Pertinent Labs Glucose 156-253 since admission, HGA1C 9.4 Nutritional Hx/Data Height 1.78 m Height (Calculated Centimeters) 177.8 Current Weight (lbs) 70.76 kg Weight (Calculated Kilograms) 70.8 Weight (Calculated Grams) 78427.4 [place] Body Weight 166 % [place] Body Weight 93 Body Mass Index (BMI) 22.4 Recent Weight Change No Weight Status Approriate GI Symptoms GI Symptoms None Last BM 10/03 x 1 Difficult in: None Food Allergies No Cultural/Ethnic/Amish Belief None noted Usual diet at home Unknown Skin Integrity/Comment: Anuel 18, dryness, area of concern, bruises Current %PO Good (75-100%) Estimated Nutritional Goals BEE in Kcals: Using Current wt Calories/Kcals/Kg (based on CBW 70.8kg, 25-30 kcal/kg) Kcals Calculated ~0358-9879 kcal/day Protein: Using Current wt Protein g/k gm/kg Protein Calculated ~70 gm/day Fluid: ml ~3003-4862 ml/day (1 ml/kcal) Nutritional Problem 1. Problem Problem Altered nutrition related lab values related to Etiology uncontrolled hyperglycemia aeb Signs/Symptoms: Glucose 156-253 since admission, HGA1C 9.4 Intervention/Recommendation Comments 1. Continue 60 gm CCHO diet as tolerated by patient. 2. MD to modify insulin regimen for optimal glycemic control. Expected Outcomes/Goals Expected Outcomes/Goals Oral intake >75% of meals, nutrition related labs WNL, weight stable F/U LR 10/11
[2017-10-08] MEDS: Insulin Detemir 100 units/mL 10mL Vial SUBQ SCH (09:26)
--- NOTE | 2017-10-08 18:34 | Progress Notes ---
DATE: 10/08/2017 SUBJECTIVE: Chart reviewed and the patient interviewed. Also discussed the patient's condition with the staff and reviewed records and labs. The patient continued to be confused and restless. The patient also is resisting care. He also refuse Accu-Chek. The patient also states he did have episodes of irritability and anger for no apparent reason. ASSESSMENT: The patient is still agitated and aggressive. TREATMENT PLAN: Continue monitoring his behavior and his condition and continue adjusting psychotropic medications. JOB# [id number]
[2017-10-09] MEDS: INSULIN ASPART SLIDING SCALE 100 UNITS/ML UNIT SUBQ SCH ×4 (06:33→21:47)
--- NOTE | 2017-10-09 08:25 | General Progress Note ---
Subjective - Review of Systems Service Date: 10/09/17 Subjective: Awake, alert, afebrile. Patient BP has improved. Blood sugars improved. VS T97.8 P77 R20 BP131/77 BS 253-->254-->210-->483-->263-->205-->250 Objective - Results Result Diagrams: 10/03/17 06:10 10/03/17 06:10 Recent Labs: Laboratory Last Values WBC 6.8 Th/cmm (4.8-10.8) 10/03/17 06:10 RBC 4.78 Mil/cmm (3.80-5.80) 10/03/17 06:10 Hgb 13.8 gm/dL (12-16) 10/03/17 06:10 Hct 42.8 % (41.0-60) 10/03/17 06:10 MCV 89.4 fl (80-99) 10/03/17 06:10 MCH 28.9 pg (27.0-31.0) 10/03/17 06:10 MCHC Differential 32.4 pg (28.0-36.0) 10/03/17 06:10 RDW 15.4 % (11.5-20.0) 10/03/17 06:10 Plt Count 223 Th/cmm (150-400) 10/03/17 06:10 MPV 9.6 fl 10/03/17 06:10 Neutrophils % 64.9 % (40.0-80.0) 10/03/17 06:10 Lymphocytes % 21.8 % (20.0-50.0) 10/03/17 06:10 Monocytes % 7.7 % (2.0-10.0) 10/03/17 06:10 Eosinophils % 4.5 % (0.0-5.0) 10/03/17 06:10 Basophils % 1.1 % (0.0-2.0) 10/03/17 06:10 Sodium 135 mEq/L (136-145) L 10/03/17 06:10 Potassium 3.8 mEq/L (3.5-5.1) 10/03/17 06:10 Chloride 102 mEq/L (98-107) 10/03/17 06:10 Carbon Dioxide 23.3 mEq/L (21.0-31.0) 10/03/17 06:10 Anion Gap 13.5 (7.0-16.0) 10/03/17 06:10 BUN 18 mg/dL (7-25) 10/03/17 06:10 Creatinine 1.0 mg/dL (0.7-1.3) 10/03/17 06:10 Est GFR ( Amer) TNP 10/03/17 06:10 Est GFR (Non-Af Amer) TNP 10/03/17 06:10 BUN/Creatinine Ratio 18.0 10/03/17 06:10 Glucose 483 mg/dL (70-105) H* 10/05/17 22:13 POC Glucose 250 MG/DL (70 - 105) H 10/08/17 06:43 Hemoglobin A1c % 9.4 % (4.0-6.0) H 10/03/17 06:10 Calcium 9.3 mg/dL (8.6-10.3) 10/03/17 06:10 Triglycerides 149 mg/dL (<150) 10/03/17 06:10 Cholesterol 144 mg/dL (<200) 10/03/17 06:10 LDL Cholesterol Direct 93 mg/dL (75-193) 10/03/17 06:10 HDL Cholesterol 46 mg/dL (23-92) 10/03/17 06:10 TSH 1.66 uIU/ml (0.34-5.60) 10/03/17 06:10 - Physical Exam Vitals and I&O: Vital Signs Temp 97.8 F 10/09/17 06:51 Pulse 77 10/09/17 06:51 Resp 20 10/09/17 06:51 BP 131/77 10/09/17 06:51 Pulse Ox 98 10/09/17 06:51 Intake & Output 10/08/17 10/09/17 10/09/17 18:59 06:59 18:59 Intake Total 240 120 Balance 240 120 Intake: Oral 240 120 Other: # Voids 3 3 Active Medications: Current Medications Acetaminophen (Tylenol) 650 mg PO Q6HR PRN PRN Reason: mild to moderate pain Stop: 12/01/17 22:18 Last Admin: 10/08/17 13:54 Dose: 650 mg Famotidine (Pepcid) 20 mg PO BID IMMANUEL Stop: 04/17/18 08:59 Last Admin: 10/08/17 17:23 Dose: 20 mg Heparin Sodium (Porcine) (Heparin) 5,000 units SUBQ Q12HR IMMANUEL PRN Reason: Protocol Stop: 12/02/17 08:59 Last Admin: 10/08/17 22:02 Dose: Not Given Insulin Aspart (Novolog Insulin Sliding Scale) 0 units SUBQ ACHS IMMANUEL PRN Reason: Protocol Stop: 12/02/17 11:29 Last Admin: 10/09/17 06:33 Dose: Not Given Insulin Detemir (Levemir Insulin) 20 units SUBQ DAILY IMMANUEL PRN Reason: Protocol Stop: 12/05/17 08:59 Last Admin: 10/08/17 09:26 Dose: Not Given Lorazepam (Ativan) 0.5 mg PO Q6HR PRN; Protocol PRN Reason: agitation Stop: 12/01/17 22:18 Last Admin: 10/08/17 13:55 Dose: 0.5 mg Magnesium Hydroxide (Milk Of Magnesia) 30 ml PO HS PRN PRN Reason: Constipation Metformin HCl (Glucophage) 1,000 mg PO DAILY IMMANUEL Stop: 12/05/17 08:59 Last Admin: 10/08/17 08:33 Dose: 1,000 mg Metoprolol Succinate (Toprol Xl) 25 mg PO DAILY IMMANUEL Stop: 12/05/17 11:29 Last Admin: 10/08/17 08:32 Dose: 25 mg Quetiapine Fumarate (Seroquel) 25 mg PO DAILY IMMANUEL PRN Reason: Protocol Stop: 12/02/17 08:59 Last Admin: 10/08/17 08:33 Dose: 25 mg Zolpidem Tartrate (Ambien) 5 mg PO HS PRN PRN Reason: insomnia Stop: 12/01/17 22:18 Last Admin: 10/05/17 21:14 Dose: 5 mg General: Alert, Oriented x3, No acute distress HEENT: Atraumatic, PERRLA, EOMI Neck: Supple Cardiovascular: Regular rate, Normal S1, Normal S2 Lungs: Clear to auscultation Abdomen: Bowel sounds, Soft Extremities: no Clubbing, no Cyanosis, no Edema Assessment/Plan - Assessment Assessment: psychosis dementia schizophrenia h/o encephalopathy h/o alcohol withdrawal diabetes mellitus type 2 on insulin .. improved. HTN ... improved - Plan Plan: admit to [facility] will add TSH, Lipid profile, A1c to current labs. accucheck ac and hs low dose sliding scale. add Clonidine 0.1mg PO q8 increase Levemir 20mg units SQ increase metformin to 1000mg daily add Toprol XL 25mg PO daily Nutritional Asmnt/Malnutr-PDOC - Dietary Evaluation Malnutrition Findings (Please click <Entered> for more info): Nutritional Asmnt/Malnutrition Start: 10/04/17 10: 07 Text: Status: Complete Freq: Document 10/04/17 10:07 MMSARAN (Rec: 10/04/17 10:20 MMULTONG [id number] [email or web address]) Nutritional Asmnt/Malnutrition Patient General Information Nutritional Screening High Risk Diagnosis Psychosis NOS Pertinent Medical Hx/Surgical Hx Dementia, Schizophrenia, acute encephalopathy, diabetes Subjective Information Patient was transferred from [facility]. Per H&P, FBS was 426. Patient is primarily Sami speaking. Patient was asleep in bed at time of RD visit. Current Diet Order/ Nutrition Support 60gm CCHO Patient / S.O Not Indicated Pertinent Medications Pepcid, Novolog, Levemir, MOM, Metformin Pertinent Labs Glucose 156-253 since admission, HGA1C 9.4 Nutritional Hx/Data Height 1.78 m Height (Calculated Centimeters) 177.8 Current Weight (lbs) 70.76 kg Weight (Calculated Kilograms) 70.8 Weight (Calculated Grams) 16038.4 [place] Body Weight 166 % [place] Body Weight 93 Body Mass Index (BMI) 22.4 Recent Weight Change No Weight Status Approriate GI Symptoms GI Symptoms None Last BM 10/03 x 1 Difficult in: None Food Allergies No Cultural/Ethnic/Baptist Belief None noted Usual diet at home Unknown Skin Integrity/Comment: Anuel 18, dryness, area of concern, bruises Current %PO Good (75-100%) Estimated Nutritional Goals BEE in Kcals: Using Current wt Calories/Kcals/Kg (based on CBW 70.8kg, 25-30 kcal/kg) Kcals Calculated ~4356-2667 kcal/day Protein: Using Current wt Protein g/k gm/kg Protein Calculated ~70 gm/day Fluid: ml ~1567-7537 ml/day (1 ml/kcal) Nutritional Problem 1. Problem Problem Altered nutrition related lab values related to Etiology uncontrolled hyperglycemia aeb Signs/Symptoms: Glucose 156-253 since admission, HGA1C 9.4 Intervention/Recommendation Comments 1. Continue 60 gm CCHO diet as tolerated by patient. 2. MD to modify insulin regimen for optimal glycemic control. Expected Outcomes/Goals Expected Outcomes/Goals Oral intake >75% of meals, nutrition related labs WNL, weight stable F/U LR 10/11
[2017-10-09] MEDS: Insulin Detemir 100 units/mL 10mL Vial SUBQ SCH (10:04)
--- NOTE | 2017-10-09 21:55 | Progress Notes ---
DATE: 10/09/2017 PSYCHIATRIC PROGRESS NOTE SUBJECTIVE: Chart reviewed and the patient interviewed. Also discussed the patient's condition with the staff and reviewed records and labs. The patient is still confused. The patient also is still trying to take off his clothes. Also when I tried to talk him, he kept waving both hands and yelling " ." He also is still unable to follow directions and he is still easily agitated. The patient also gets combative when staff tried to help with his ADLs. Also is still paranoid and in irritable mood. Otherwise, the patient is compliant with taking his medications with no side effects of medications. Yesterday, the patient refused to take his heparin, but he did take rest of medications. ASSESSMENT: The patient still can be dangerous to others and considered to be gravely disabled. TREATMENT PLAN: Continue monitoring his behavior and continue adjusting psychotropic medications and follow up closely. [facility]# [id number]
[2017-10-10] MEDS: INSULIN ASPART SLIDING SCALE 100 UNITS/ML UNIT SUBQ SCH ×4 (07:01→21:00)
--- NOTE | 2017-10-10 08:00 | Progress Notes ---
DATE: SUBJECTIVE: Chart reviewed and the patient interviewed. Also, discussed the patient's condition with the staff and reviewed records and labs. The patient is still in irritable mood. The patient also is still pounding on the bed rails and screaming and yelling "[place]." He also is restless and he is having difficulty expressing himself or expressing his needs. Also, is easily agitated and unable to follow directions and mumbling in [place] all the time and yelling and screaming. Also, aggressive with the staff while helping him with his ADLs. ASSESSMENT: The patient is still agitated and is still psychotic. TREATMENT PLAN: Continue to monitor his behavior and his condition closely. Also, continue to work on his poor impulse control. Also, the patient is refusing to take medications and we will give the patient with IM if he gets agitated. Also, will work on his compliance with medications. ESTIMATED LENGTH OF STAY: 4-6 days. LABORATORY DATA: No new labs available for review. JOB# [id number]
--- NOTE | 2017-10-10 08:02 | Progress Notes ---
DATE: ADDENDUM Because the patient is refusing medications we will try to give the patient Zyprexa Zydis 5 mg twice a day and we will see if this will help the patient's agitation and confusion, especially that he is also refusing to take insulin and the family brought the rest of his medications at home including insulin and the patient needs that because of his elevated blood sugar. JOB# [id number]
--- NOTE | 2017-10-10 08:14 | General Progress Note ---
Subjective - Review of Systems Service Date: 10/10/17 Subjective: Awake, alert, afebrile. Patient refusing medications including insulin and as a result BP and Blood sugars are elevated this AM. VS T98.6 P118 R18 BP158/96 BS 253-->254-->210-->483-->263-->205-->250-->384 Objective - Results Result Diagrams: 10/03/17 06:10 10/03/17 06:10 Recent Labs: Laboratory Last Values WBC 6.8 Th/cmm (4.8-10.8) 10/03/17 06:10 RBC 4.78 Mil/cmm (3.80-5.80) 10/03/17 06:10 Hgb 13.8 gm/dL (12-16) 10/03/17 06:10 Hct 42.8 % (41.0-60) 10/03/17 06:10 MCV 89.4 fl (80-99) 10/03/17 06:10 MCH 28.9 pg (27.0-31.0) 10/03/17 06:10 MCHC Differential 32.4 pg (28.0-36.0) 10/03/17 06:10 RDW 15.4 % (11.5-20.0) 10/03/17 06:10 Plt Count 223 Th/cmm (150-400) 10/03/17 06:10 MPV 9.6 fl 10/03/17 06:10 Neutrophils % 64.9 % (40.0-80.0) 10/03/17 06:10 Lymphocytes % 21.8 % (20.0-50.0) 10/03/17 06:10 Monocytes % 7.7 % (2.0-10.0) 10/03/17 06:10 Eosinophils % 4.5 % (0.0-5.0) 10/03/17 06:10 Basophils % 1.1 % (0.0-2.0) 10/03/17 06:10 Sodium 135 mEq/L (136-145) L 10/03/17 06:10 Potassium 3.8 mEq/L (3.5-5.1) 10/03/17 06:10 Chloride 102 mEq/L (98-107) 10/03/17 06:10 Carbon Dioxide 23.3 mEq/L (21.0-31.0) 10/03/17 06:10 Anion Gap 13.5 (7.0-16.0) 10/03/17 06:10 BUN 18 mg/dL (7-25) 10/03/17 06:10 Creatinine 1.0 mg/dL (0.7-1.3) 10/03/17 06:10 Est GFR ( Amer) TNP 10/03/17 06:10 Est GFR (Non-Af Amer) TNP 10/03/17 06:10 BUN/Creatinine Ratio 18.0 10/03/17 06:10 Glucose 483 mg/dL (70-105) H* 10/05/17 22:13 POC Glucose 384 MG/DL (70 - 105) H 10/09/17 17:15 Hemoglobin A1c % 9.4 % (4.0-6.0) H 10/03/17 06:10 Calcium 9.3 mg/dL (8.6-10.3) 10/03/17 06:10 Triglycerides 149 mg/dL (<150) 10/03/17 06:10 Cholesterol 144 mg/dL (<200) 10/03/17 06:10 LDL Cholesterol Direct 93 mg/dL (75-193) 10/03/17 06:10 HDL Cholesterol 46 mg/dL (23-92) 10/03/17 06:10 TSH 1.66 uIU/ml (0.34-5.60) 10/03/17 06:10 - Physical Exam Vitals and I&O: Vital Signs Temp 98.6 F 10/09/17 15:49 Pulse 118 10/09/17 15:49 Resp 20 10/09/17 20:00 BP 158/96 10/09/17 15:49 Pulse Ox 99 10/09/17 15:49 Intake & Output 10/09/17 10/10/17 10/10/17 18:59 06:59 18:59 Intake Total 240 250 Balance 240 250 Intake: Oral 240 250 Other: # Voids 2 2 # Bowel Movements 0 Active Medications: Current Medications Acetaminophen (Tylenol) 650 mg PO Q6HR PRN PRN Reason: mild to moderate pain Stop: 12/01/17 22:18 Last Admin: 10/08/17 13:54 Dose: 650 mg Famotidine (Pepcid) 20 mg PO BID IMMANUEL Stop: 12/02/17 08:59 Last Admin: 10/09/17 16:06 Dose: 20 mg Heparin Sodium (Porcine) (Heparin) 5,000 units SUBQ Q12HR IMMANUEL PRN Reason: Protocol Stop: 12/02/17 08:59 Last Admin: 10/09/17 21:50 Dose: Not Given Insulin Aspart (Novolog Insulin Sliding Scale) 0 units SUBQ ACHS IMMANUEL PRN Reason: Protocol Stop: 12/02/17 11:29 Last Admin: 10/10/17 07:01 Dose: Not Given Insulin Detemir (Levemir Insulin) 20 units SUBQ DAILY IMMANUEL PRN Reason: Protocol Stop: 12/05/17 08:59 Last Admin: 10/09/17 10:04 Dose: Not Given Lorazepam (Ativan) 0.5 mg PO Q6HR PRN; Protocol PRN Reason: agitation Stop: 12/01/17 22:18 Last Admin: 10/08/17 13:55 Dose: 0.5 mg Magnesium Hydroxide (Milk Of Magnesia) 30 ml PO HS PRN PRN Reason: Constipation Metformin HCl (Glucophage) 1,000 mg PO DAILY IMMANUEL Stop: 12/05/17 08:59 Last Admin: 10/09/17 10:10 Dose: Not Given Metoprolol Succinate (Toprol Xl) 25 mg PO DAILY IMMANUEL Stop: 12/05/17 11:29 Last Admin: 10/09/17 10:11 Dose: Not Given Olanzapine (Zyprexa Zydis) 5 mg PO DAILY IMMANUEL PRN Reason: Protocol Stop: 12/09/17 08:59 Quetiapine Fumarate (Seroquel) 25 mg PO DAILY IMMANUEL PRN Reason: Protocol Stop: 12/02/17 08:59 Last Admin: 10/09/17 10:11 Dose: Not Given Zolpidem Tartrate (Ambien) 5 mg PO HS PRN PRN Reason: insomnia Stop: 12/01/17 22:18 Last Admin: 10/05/17 21:14 Dose: 5 mg General: Alert, Oriented x3, No acute distress HEENT: Atraumatic, PERRLA, EOMI Neck: Supple Cardiovascular: Regular rate, Normal S1, Normal S2 Lungs: Clear to auscultation Abdomen: Bowel sounds, Soft Extremities: no Clubbing, no Cyanosis, no Edema Assessment/Plan - Assessment Assessment: psychosis dementia schizophrenia h/o encephalopathy h/o alcohol withdrawal diabetes mellitus type 2 on insulin .. elevated d/t noncompliance. HTN ... elevated. - Plan [facility] TSH, Lipid profile, A1c to current labs. accucheck ac and hs low dose sliding scale. add Clonidine 0.1mg PO q8 increase Levemir 20mg units SQ increase metformin to 1000mg daily add Toprol XL 25mg PO daily Nutritional Asmnt/Malnutr-PDOC - Dietary Evaluation Malnutrition Findings (Please click <Entered> for more info): Nutritional Asmnt/Malnutrition Start: 10/04/17 10: 07 Text: Status: Complete Freq: Document 10/04/17 10:07 TC (Rec: 10/04/17 10:20 TC FRANK- FNS1) Nutritional Asmnt/Malnutrition Patient General Information Nutritional Screening High Risk Diagnosis Psychosis NOS Pertinent Medical Hx/Surgical Hx Dementia, Schizophrenia, acute encephalopathy, diabetes Subjective Information Patient was transferred from [facility]. Per H&P, FBS was 426. Patient is primarily Estonian speaking. Patient was asleep in bed at time of RD visit. Current Diet Order/ [facility] / S.O Not Indicated Pertinent Medications Pepcid, Novolog, Levemir, MOM, Metformin Pertinent Labs Glucose 156-253 since admission, HGA1C 9.4 Nutritional Hx/Data Height 1.78 m Height (Calculated Centimeters) 177.8 Current Weight (lbs) 70.76 kg Weight (Calculated Kilograms) 70.8 Weight (Calculated Grams) 30898.4 [place] Body Weight 166 % [place] Body Weight 93 Body Mass Index (BMI) 22.4 Recent Weight Change No Weight Status Approriate GI Symptoms GI Symptoms None Last BM 10/03 x 1 Difficult in: None Food Allergies No Cultural/Ethnic/Jew Belief None noted Usual diet at home Unknown Skin Integrity/Comment: Anuel 18, dryness, area of concern, bruises Current %PO Good (75-100%) Estimated Nutritional Goals BEE in Kcals: Using Current wt Calories/Kcals/Kg (based on CBW 70.8kg, 25-30 kcal/kg) Kcals Calculated ~2724-1363 kcal/day Protein: Using Current wt Protein g/k gm/kg Protein Calculated ~70 gm/day Fluid: ml ~6419-2195 ml/day (1 ml/kcal) Nutritional Problem 1. Problem Problem Altered nutrition related lab values related to Etiology uncontrolled hyperglycemia aeb Signs/Symptoms: Glucose 156-253 since admission, HGA1C 9.4 Intervention/Recommendation Comments 1. Continue 60 gm CCHO diet as tolerated by patient. 2. MD to modify insulin regimen for optimal glycemic control. Expected Outcomes/Goals Expected Outcomes/Goals Oral intake >75% of meals, nutrition related labs WNL, weight stable F/U LR 10/11
[2017-10-10] MEDS: OLANZapine 5 mg Oral Disintegrating Tab PO SCH (08:41)
[2017-10-10] MEDS: Insulin Detemir 100 units/mL 10mL Vial SUBQ SCH (08:44)
[2017-10-11] MEDS: INSULIN ASPART SLIDING SCALE 100 UNITS/ML UNIT SUBQ SCH ×4 (08:00→21:30)
--- NOTE | 2017-10-11 08:51 | General Progress Note ---
Subjective - Review of Systems Service Date: 10/11/17 Subjective: Awake, alert, afebrile. Patient refusing medications including insulin and as a result BP and Blood sugars are elevated this AM. VS T98.6 P118 R18 BP158/96 BS 253-->254-->210-->483-->263-->205-->250-->384 Objective - Results Result Diagrams: 10/03/17 06:10 10/03/17 06:10 Recent Labs: Laboratory Last Values WBC 6.8 Th/cmm (4.8-10.8) 10/03/17 06:10 RBC 4.78 Mil/cmm (3.80-5.80) 10/03/17 06:10 Hgb 13.8 gm/dL (12-16) 10/03/17 06:10 Hct 42.8 % (41.0-60) 10/03/17 06:10 MCV 89.4 fl (80-99) 10/03/17 06:10 MCH 28.9 pg (27.0-31.0) 10/03/17 06:10 MCHC Differential 32.4 pg (28.0-36.0) 10/03/17 06:10 RDW 15.4 % (11.5-20.0) 10/03/17 06:10 Plt Count 223 Th/cmm (150-400) 10/03/17 06:10 MPV 9.6 fl 10/03/17 06:10 Neutrophils % 64.9 % (40.0-80.0) 10/03/17 06:10 Lymphocytes % 21.8 % (20.0-50.0) 10/03/17 06:10 Monocytes % 7.7 % (2.0-10.0) 10/03/17 06:10 Eosinophils % 4.5 % (0.0-5.0) 10/03/17 06:10 Basophils % 1.1 % (0.0-2.0) 10/03/17 06:10 Sodium 135 mEq/L (136-145) L 10/03/17 06:10 Potassium 3.8 mEq/L (3.5-5.1) 10/03/17 06:10 Chloride 102 mEq/L (98-107) 10/03/17 06:10 Carbon Dioxide 23.3 mEq/L (21.0-31.0) 10/03/17 06:10 Anion Gap 13.5 (7.0-16.0) 10/03/17 06:10 BUN 18 mg/dL (7-25) 10/03/17 06:10 Creatinine 1.0 mg/dL (0.7-1.3) 10/03/17 06:10 Est GFR ( Amer) TNP 10/03/17 06:10 Est GFR (Non-Af Amer) TNP 10/03/17 06:10 BUN/Creatinine Ratio 18.0 10/03/17 06:10 Glucose 483 mg/dL (70-105) H* 10/05/17 22:13 POC Glucose 384 MG/DL (70 - 105) H 10/09/17 17:15 Hemoglobin A1c % 9.4 % (4.0-6.0) H 10/03/17 06:10 Calcium 9.3 mg/dL (8.6-10.3) 10/03/17 06:10 Triglycerides 149 mg/dL (<150) 10/03/17 06:10 Cholesterol 144 mg/dL (<200) 10/03/17 06:10 LDL Cholesterol Direct 93 mg/dL (75-193) 10/03/17 06:10 HDL Cholesterol 46 mg/dL (23-92) 10/03/17 06:10 TSH 1.66 uIU/ml (0.34-5.60) 10/03/17 06:10 - Physical Exam Vitals and I&O: Vital Signs Temp 97.8 F 10/10/17 15:49 Pulse 115 10/10/17 15:49 Resp 18 10/10/17 15:49 BP 163/86 10/10/17 15:49 Pulse Ox 96 10/10/17 15:49 Intake & Output 10/10/17 10/11/17 10/11/17 18:59 06:59 18:59 Intake Total 500 Balance 500 Intake: Oral 500 Other: # Voids 3 Active Medications: Current Medications Acetaminophen (Tylenol) 650 mg PO Q6HR PRN PRN Reason: mild to moderate pain Stop: 12/01/17 22:18 Last Admin: 10/08/17 13:54 Dose: 650 mg Famotidine (Pepcid) 20 mg PO BID IMMANUEL Stop: 12/02/17 08:59 Last Admin: 10/10/17 16:22 Dose: Not Given Heparin Sodium (Porcine) (Heparin) 5,000 units SUBQ Q12HR IMMANUEL PRN Reason: Protocol Stop: 12/02/17 08:59 Last Admin: 10/10/17 21:04 Dose: Not Given Insulin Aspart (Novolog Insulin Sliding Scale) 0 units SUBQ ACHS IMMANUEL PRN Reason: Protocol Stop: 12/02/17 11:29 Last Admin: 10/10/17 21:00 Dose: Not Given Insulin Detemir (Levemir Insulin) 20 units SUBQ DAILY IMMANUEL PRN Reason: Protocol Stop: 12/05/17 08:59 Last Admin: 10/10/17 08:44 Dose: Not Given Lorazepam (Ativan) 0.5 mg PO Q6HR PRN; Protocol PRN Reason: agitation Stop: 12/01/17 22:18 Last Admin: 10/08/17 13:55 Dose: 0.5 mg Magnesium Hydroxide (Milk Of Magnesia) 30 ml PO HS PRN PRN Reason: Constipation Metformin HCl (Glucophage) 1,000 mg PO DAILY [facility] Stop: 12/05/17 08:59 Last Admin: 10/10/17 08:41 Dose: Not Given Metoprolol Succinate (Toprol Xl) 25 mg PO DAILY [facility] Stop: 12/05/17 11:29 Last Admin: 10/10/17 08:40 Dose: Not Given Olanzapine (Zyprexa Zydis) 5 mg PO DAILY IMMANUEL PRN Reason: Protocol Stop: 12/09/17 08:59 Last Admin: 10/10/17 08:41 Dose: Not Given Quetiapine Fumarate (Seroquel) 25 mg PO DAILY IMMANUEL PRN Reason: Protocol Stop: 12/02/17 08:59 Last Admin: 10/10/17 08:42 Dose: Not Given Zolpidem Tartrate (Ambien) 5 mg PO HS PRN PRN Reason: insomnia Stop: 12/01/17 22:18 Last Admin: 10/05/17 21:14 Dose: 5 mg General: Alert, Oriented x3, No acute distress HEENT: Atraumatic, PERRLA, EOMI Neck: Supple Cardiovascular: Regular rate, Normal S1, Normal S2 Lungs: Clear to auscultation Abdomen: Bowel sounds, Soft Extremities: no Clubbing, no Cyanosis, no Edema Assessment/Plan - Assessment Assessment: psychosis dementia schizophrenia h/o encephalopathy h/o alcohol withdrawal diabetes mellitus type 2 on insulin .. elevated d/t noncompliance. HTN ... elevated. - Plan Plan: admit to [facility] will add TSH, Lipid profile, A1c to current labs. accucheck ac and hs low dose sliding scale. add Clonidine 0.1mg PO q8 increase Levemir 20mg units SQ increase metformin to 1000mg daily add Toprol XL 25mg PO daily Nutritional Asmnt/Malnutr-PDOC - Dietary Evaluation Malnutrition Findings (Please click <Entered> for more info): Nutritional Asmnt/Malnutrition Start: 10/04/17 10: 07 Text: Status: Complete Freq: Document 10/04/17 10:07 TC (Rec: 10/04/17 10:20 TC FRANK- FNS1) Nutritional Asmnt/Malnutrition Patient General Information Nutritional Screening High Risk Diagnosis Psychosis NOS Pertinent Medical Hx/Surgical Hx Dementia, Schizophrenia, acute encephalopathy, diabetes Subjective Information Patient was transferred from [facility]. Per H&P, FBS was 426. Patient is primarily Occitan speaking. Patient was asleep in bed at time of RD visit. Current Diet [facility]/ [facility] / S.[facility] Not Indicated Pertinent Medications Pepcid, Novolog, Levemir, MOM, Metformin Pertinent Labs Glucose 156-253 since admission, HGA1C 9.4 Nutritional Hx/Data Height 1.78 m Height (Calculated Centimeters) 177.8 Current Weight (lbs) 70.76 kg Weight (Calculated Kilograms) 70.8 Weight (Calculated Grams) 78898.4 [place] Body Weight 166 % [place] Body Weight 93 Body Mass Index (BMI) 22.4 Recent Weight Change No Weight Status Approriate GI Symptoms GI Symptoms None Last BM 10/03 x 1 Difficult in: None Food Allergies No Cultural/Ethnic/Confucianist Belief None noted Usual diet at home Unknown Skin Integrity/Comment: Anuel 18, dryness, area of concern, bruises Current %PO Good (75-100%) Estimated Nutritional Goals BEE in Kcals: Using Current wt Calories/Kcals/Kg (based on CBW 70.8kg, 25-30 kcal/kg) Kcals Calculated ~3096-0816 kcal/day Protein: Using Current wt Protein g/k gm/kg Protein Calculated ~70 gm/day Fluid: ml ~4832-7188 ml/day (1 ml/kcal) Nutritional Problem 1. Problem Problem Altered nutrition related lab values related to Etiology uncontrolled hyperglycemia aeb Signs/Symptoms: Glucose 156-253 since admission, HGA1C 9.4 Intervention/Recommendation Comments 1. Continue 60 gm CCHO diet as tolerated by patient. 2. MD to modify insulin regimen for optimal glycemic control. Expected Outcomes/Goals Expected Outcomes/Goals Oral intake >75% of meals, nutrition related labs WNL, weight stable F/U LR 10/11
[2017-10-11] MEDS: Insulin Detemir 100 units/mL 10mL Vial SUBQ SCH (09:45)
[2017-10-11] MEDS: OLANZapine 5 mg Oral Disintegrating Tab PO SCH (09:45)
--- NOTE | 2017-10-11 19:05 | Progress Notes ---
DATE: The patient was seen and evaluated. The patient's chart reviewed. SUBJECTIVE: He is a 76-year-old male who was initially brought in here for disorganized and confused and disrobing himself. Today on [id number] evaluation, the patient instead observed to be taken of his shirt, needing a lot of redirection. He is very confused, very disorganized and needing a lot of redirection to maintain simple conversation. MENTAL STATUS EXAMINATION: Disorganized, disheveled. ASSESSMENT AND PLAN: The patient is a 76-year-old male who presents still very disorganized, disheveled, needing a lot of redirection to maintain simple redirections, to continue with the primary psychiatrist's treatment plan and goals, which include quetiapine at 25 mg every day and also olanzapine 5 mg, it is unclear why he is in too low dosages of antipsychotics. We will discontinue one of them and do one in the psychotic at this time to reduce the risk of med interactions. [facility]# [id number]
[2017-10-12] MEDS ORDERED: INSULIN ASPART SLIDING SCALE 100 UNITS/ML UNIT SUBQ ONE (01:00)
[2017-10-12] MEDS: INSULIN ASPART SLIDING SCALE 100 UNITS/ML UNIT SUBQ SCH ×2 (06:32→11:55)
[2017-10-12 07:17] LABS: % BASOPHILS 0.1 % (0.0-2.0); % EOSINOPHILS 0.7 % (0.0-5.0); % LYMPHOCYTES 14.2 % (20.0-50.0); % MONOCYTES 4.5 % (2.0-10.0); % NEUTROPHILS 80.5 % (40.0-80.0); EOSINOPHILE ABSOLUTE 0.1 Th/cmm (0.1-0.4); LYMPHOCYTE ABSOLUTE 1.3 Th/cmm (1.5-3.0); MEAN CELL VOLUME 90.6 fl (80-99); MEAN PLATELET VOLUME 9.4 fl; MONOCYTE ABSOLUTE 0.4 Th/cmm (0.3-1.0); NEUTROPHILE ABSOLUTE 7.5 Th/cmm (1.8-8.0); RED BLOOD COUNT 6.03 Mil/cmm (3.80-5.80)
[2017-10-12 07:18] LABS: HEMATOCRIT 54.7 % (41.0-60); HEMOGLOBIN 17.5 gm/dL (12-16); PLATELET COUNT 291 Th/cmm (150-400); WHITE BLOOD COUNT 9.3 Th/cmm (4.8-10.8)
[2017-10-12 07:34] LABS: ALB/GLOB RATIO 0.9 (1.0-1.8); ALBUMIN 4.2 gm/dL (4.2-5.5); ALKALINE PHOSPHATASE 88 U/L (34-104); ANION GAP 15.9 (7.0-16.0); BILIRUBIN,TOTAL 0.6 mg/dL (0.3-1.0); BUN - UREA NITROGEN 44 mg/dL (7-25); CALCIUM SERUM 10.9 mg/dL (8.6-10.3); CARBON DIOXIDE 29.9 mEq/L (21.0-31.0); CHLORIDE 119 mEq/L (98-107); CREATININE - SERUM 1.5 mg/dL (0.7-1.3); POTASSIUM SERUM 3.8 mEq/L (3.5-5.1); SGOT 14 U/L (13-39); SGPT/ALT 21 U/L (7-52); TOTAL PROTEIN,SERUM 8.7 gm/dL (6.0-8.3); URIC ACID 12.4 mg/dL (4.4-7.6)
[2017-10-12 07:39] LABS: GLUCOSE 69 mg/dL (70-105)
[2017-10-12 07:46] LABS: SODIUM SERUM 161 mEq/L (136-145)
[2017-10-12] MEDS ORDERED: D5-0.45NS w/20 mEq KCL 1,000 ML IV SCH (10:15)
--- NOTE | 2017-10-12 10:17 | General Progress Note ---
Subjective - Review of Systems Service Date: 10/12/17 Subjective: Awake, alert, afebrile. Patient refusing medications including insulin and as a result BP and Blood sugars are elevated this AM. Patient having boughts of increased Blood sugars last night. Poor PO intake. Patient noted to have infected wound. VS T98.6 P118 R18 BP158/96... BS 253-->254-->210-->483-->263-->205-->250-->384 Objective - Results Result Diagrams: 10/12/17 07:00 10/12/17 07:00 Recent Labs: Laboratory Last Values WBC 9.3 Th/cmm (4.8-10.8) D 10/12/17 07:00 RBC 6.03 Mil/cmm (3.80-5.80) H 10/12/17 07:00 Hgb 17.5 gm/dL (12-16) D 10/12/17 07:00 Hct 54.7 % (41.0-60) D 10/12/17 07:00 MCV 90.6 fl (80-99) 10/12/17 07:00 MCH 29.0 pg (27.0-31.0) 10/12/17 07:00 MCHC Differential 32.0 pg (28.0-36.0) 10/12/17 07:00 RDW 16.0 % (11.5-20.0) 10/12/17 07:00 Plt Count 291 Th/cmm (150-400) D 10/12/17 07:00 MPV 9.4 fl 10/12/17 07:00 Neutrophils % 80.5 % (40.0-80.0) H 10/12/17 07:00 Lymphocytes % 14.2 % (20.0-50.0) L 10/12/17 07:00 Monocytes % 4.5 % (2.0-10.0) 10/12/17 07:00 Eosinophils % 0.7 % (0.0-5.0) 10/12/17 07:00 Basophils % 0.1 % (0.0-2.0) 10/12/17 07:00 Sodium 161 mEq/L (136-145) H* D 10/12/17 07:00 Potassium 3.8 mEq/L (3.5-5.1) 10/12/17 07:00 Chloride 119 mEq/L (98-107) H 10/12/17 07:00 Carbon Dioxide 29.9 mEq/L (21.0-31.0) 10/12/17 07:00 Anion Gap 15.9 (7.0-16.0) 10/12/17 07:00 BUN 44 mg/dL (7-25) H 10/12/17 07:00 Creatinine 1.5 mg/dL (0.7-1.3) H 10/12/17 07:00 Est GFR ( Amer) TNP 10/12/17 07:00 Est GFR (Non-Af Amer) TNP 10/12/17 07:00 BUN/Creatinine Ratio 29.3 10/12/17 07:00 Glucose 69 mg/dL (70-105) L D 10/12/17 07:00 POC Glucose 260 MG/DL (70 - 105) H 10/12/17 06:05 Hemoglobin A1c % 9.4 % (4.0-6.0) H 10/03/17 06:10 Uric Acid 12.4 mg/dL (4.4-7.6) H 10/12/17 07:00 Calcium 10.9 mg/dL (8.6-10.3) H 10/12/17 07:00 Total Bilirubin 0.6 mg/dL (0.3-1.0) 10/12/17 07:00 AST 14 U/L (13-39) 10/12/17 07:00 ALT 21 U/L (7-52) 10/12/17 07:00 Alkaline Phosphatase 88 U/L (34-104) 10/12/17 07:00 Total Protein 8.7 gm/dL (6.0-8.3) H 10/12/17 07:00 Albumin 4.2 gm/dL (4.2-5.5) 10/12/17 07:00 Globulin 4.5 gm/dL 10/12/17 07:00 Albumin/Globulin Ratio 0.9 (1.0-1.8) L 10/12/17 07:00 Triglycerides 149 mg/dL (<150) 10/03/17 06:10 Cholesterol 144 mg/dL (<200) 10/03/17 06:10 LDL Cholesterol Direct 93 mg/dL (75-193) 10/03/17 06:10 HDL Cholesterol 46 mg/dL (23-92) 10/03/17 06:10 TSH 1.66 uIU/ml (0.34-5.60) 10/03/17 06:10 - Physical Exam Vitals and I&O: Vital Signs Temp 98.0 F 10/11/17 16:22 Pulse 120 10/11/17 16:22 Resp 18 10/11/17 20:00 BP 159/119 10/11/17 16:22 Pulse Ox 97 10/11/17 16:22 Intake & Output 10/11/17 10/12/17 10/12/17 18:59 06:59 18:59 Intake Total 500 Balance 500 Intake: Oral 500 Other: # Voids 3 Active Medications: Current Medications Acetaminophen (Tylenol) 650 mg PO Q6HR PRN PRN Reason: mild to moderate pain Stop: 12/01/17 22:18 Last Admin: 10/11/17 21:30 Dose: 650 mg Famotidine (Pepcid) 20 mg PO BID [facility] Stop: 12/02/17 08:59 Last Admin: 10/11/17 09:45 Dose: Not Given Heparin Sodium (Porcine) (Heparin) 5,000 units SUBQ Q12HR [facility] PRN Reason: Protocol Stop: 12/02/17 08:59 Last Admin: 10/11/17 21:30 Dose: 5,000 units Potassium Chloride/Dextrose/Sod Cl (D5-0.45ns W/20 Meq Kcl) 1,000 mls @ 50 mls/ hr IV .Q20H [facility] Stop: 12/11/17 10:14 Insulin Aspart (Novolog Insulin Sliding Scale) 0 units SUBQ ACHS [facility] PRN Reason: Protocol Stop: 12/02/17 11:29 Last Admin: 10/12/17 06:32 Dose: 6 units Insulin Detemir (Levemir Insulin) 20 units SUBQ DAILY [facility] PRN Reason: Protocol Stop: 12/05/17 08:59 Last Admin: 10/11/17 09:45 Dose: Not Given Lorazepam (Ativan) 0.5 mg PO Q6HR PRN; Protocol PRN Reason: agitation Stop: 12/01/17 22:18 Last Admin: 10/11/17 15:14 Dose: 0.5 mg Magnesium Hydroxide (Milk Of Magnesia) 30 ml PO HS PRN PRN Reason: Constipation Metformin HCl (Glucophage) 1,000 mg PO DAILY [facility] Stop: 12/05/17 08:59 Last Admin: 10/11/17 09:45 Dose: Not Given Metoprolol Succinate (Toprol Xl) 25 mg PO DAILY [facility] Stop: 12/05/17 11:29 Last Admin: 10/11/17 09:45 Dose: Not Given Olanzapine (Zyprexa Zydis) 5 mg PO DAILY [facility] PRN Reason: Protocol Stop: 12/09/17 08:59 Last Admin: 10/11/17 09:45 Dose: Not Given Zolpidem Tartrate (Ambien) 5 mg PO HS PRN PRN Reason: insomnia Stop: 12/01/17 22:18 Last Admin: 10/05/17 21:14 Dose: 5 mg General: Alert, Oriented x3, No acute distress HEENT: Atraumatic, PERRLA, EOMI Neck: Supple Cardiovascular: Regular rate, Normal S1, Normal S2 Lungs: Clear to auscultation Abdomen: Bowel sounds, Soft Extremities: no Clubbing, no Cyanosis, no Edema Assessment/Plan - Assessment Assessment: psychosis dementia schizophrenia h/o encephalopathy h/o alcohol withdrawal diabetes mellitus type 2 on insulin .. elevated d/t noncompliance. HTN ... elevated. prerenal azotemia hypernatremia poor oral intake hyperglycemia - Plan Plan: admit to [facility] will add TSH, Lipid profile, A1c to current labs. accucheck ac and hs low dose sliding scale. add Clonidine 0.1mg PO q8 increase Levemir 20mg units SQ increase metformin to 1000mg daily add Toprol XL 25mg PO daily Started D5 1/2NS w/ 20meq KCl@50cc/hr to be transferred to med surg for closure observation and treatment of hyperglycemia and dehydration. Nutritional Asmnt/Malnutr-PDOC - Dietary Evaluation Malnutrition Findings (Please click <Entered> for more info): Nutritional Asmnt/Malnutrition Start: 10/04/17 10: 07 Text: Status: Complete Freq: Document 10/04/17 10:07 MMSARAN (Rec: 10/04/17 10:20 MMSARAN FRANK- [id number]) Nutritional Asmnt/Malnutrition Patient General Information Nutritional Screening High Risk Diagnosis Psychosis NOS Pertinent Medical Hx/Surgical Hx Dementia, Schizophrenia, acute encephalopathy, diabetes Subjective Information Patient was transferred from [facility]. Per H&P, FBS was 426. Patient is primarily Malaysian speaking. Patient was asleep in bed at time of RD visit. Current Diet Order/ Nutrition Support 60gm CCHO Patient / S.O Not Indicated Pertinent Medications Pepcid, Novolog, Levemir, MOM, Metformin Pertinent Labs Glucose 156-253 since admission, HGA1C 9.4 Nutritional Hx/Data Height 1.78 m Height (Calculated Centimeters) 177.8 Current Weight (lbs) 70.76 kg Weight (Calculated Kilograms) 70.8 Weight (Calculated Grams) 27671.4 [place] Body Weight 166 % [place] Body Weight 93 Body Mass Index (BMI) 22.4 Recent Weight Change No Weight Status Approriate GI Symptoms GI Symptoms None Last BM 10/03 x 1 Difficult in: None Food Allergies No Cultural/Ethnic/Holiness Belief None noted Usual diet at home Unknown Skin Integrity/Comment: Anuel 18, dryness, area of concern, bruises Current %PO Good (75-100%) Estimated Nutritional Goals BEE in Kcals: Using Current wt Calories/Kcals/Kg (based on CBW 70.8kg, 25-30 kcal/kg) Kcals Calculated ~4825-6555 kcal/day Protein: Using Current wt Protein g/k gm/kg Protein Calculated ~70 gm/day Fluid: ml ~5678-5857 ml/day (1 ml/kcal) Nutritional Problem 1. Problem Problem Altered nutrition related lab values related to Etiology uncontrolled hyperglycemia aeb Signs/Symptoms: Glucose 156-253 since admission, HGA1C 9.4 Intervention/Recommendation Comments 1. Continue 60 gm CCHO diet as tolerated by patient. 2. MD to modify insulin regimen for optimal glycemic control. Expected Outcomes/Goals Expected Outcomes/Goals Oral intake >75% of meals, nutrition related labs WNL, weight stable F/U LR 10/11
[2017-10-12] MEDS: Insulin Detemir 100 units/mL 10mL Vial SUBQ SCH (10:46)
[2017-10-12] MEDS: OLANZapine 5 mg Oral Disintegrating Tab PO SCH (11:35)
[2017-10-12] MEDS ORDERED: 0.45% NS w/20 mEq KCl 1,000 ML IV SCH (13:00)
--- NOTE | 2017-11-04 23:31 | Discharge Summary ---
DATE OF DISCHARGE: 10/12/2017 PATIENT'S AGE: 76-year-old. SEX: Male. PHYSICIAN: Flora Rainey MD, MPH FINAL DIAGNOSIS/PRIMARY DIAGNOSIS: Unspecified psychosis. SECONDARY DIAGNOSIS: Dementia, moderate to severe, with psychotic features. REASON FOR HOSPITALIZATION: The patient was admitted to the hospital because of confusion and increased agitation and irritability. HOSPITAL COURSE: The patient continued to be confused and was rambling in [place] language. The patient also was not able to follow any directions and he was easily agitated. The patient also was getting more angry, was yelling and screaming, asking for "agua, agua meaning water, water." The patient also was given Zyprexa and the dose was adjusted to 5 mg every day. The patient had drop in his oxygen level and the patient was transferred to the medical floor for stabilization of his medical condition. PHYSICAL EXAMINATION: Showed that the patient has insulin-dependent diabetes and has also gastroesophageal reflux disease. AFTER DISCHARGE PLANS: The patient transferred to med/surg floor and plans for followup there and stabilizing both medical and psychiatric condition there. EXPECTED OUTCOME AFTER DISCHARGE: Depends on hospital course in the medical floor. JOB# [id number]
== END 2017-10-12 13:05 | DRG 885 ==
LOC: GERO 18:48
PROVIDERS: ADMIT Psychiatry & Neurology Psychiatry; ATTEND Psychiatry & Neurology Psychiatry
DX: F29 Unspecified psychosis not due to a substance or known physiological condition (principal); E11.65 Type 2 diabetes mellitus with hyperglycemia; E87.0 Hyperosmolality and hypernatremia; F03.91 Unspecified dementia, unspecified severity, with behavioral disturbance; F20.9 Schizophrenia, unspecified; I10 Essential (primary) hypertension; R79.89 Other specified abnormal findings of blood chemistry; Z79.4 Long term (current) use of insulin
CPT/HCPCS: 36415-UA; 80048-TC; 80053-TC; 80061-TC; 82947-TC; 82948-90; 83036-90; 84443-TC; 84550-TC; 85025-TC; J1200; J1630; J1644; J1815; J2060; Z7610

== ENCOUNTER 2017-10-12 13:23 | Inpatient (IN) | payer MEDICARE, MEDICAID ==
--- NOTE | 2017-10-12 16:32 | History and Physical ---
History of Present Illness - HPI Chief Complaint: Hypernatremia, dehydration, hyperglycemia, poor oral intake HPI: 76 y/o male who was transferred from [facility] to [facility] for severe depression. Was transferred to [facility] from [facility] for poor oral intake, hypernatremia, dehydration and hyperglycemia. Patient has a history of Diabetes mellitus on Lantus. He also has a h/o alcohol abuse, and history of KEN ad dehydration, progressive dementia, schizophrenia, and acute encephalopathy. Patient was noted to have Na+ 161, BUN/Cr 44/1.5. Blood sugar has been fluctuating from 205->250->384->475-432 for the past few days. Patient has been refusing oral medication and Lantus and poor oral intake. Past Medical History Cardiovascular: Report: No Pertinent Hx Pulmonary: Report: No Pertinent Hx [employer]: Report: Dementia GI: Report: No Pertinent Hx Psych: Report: Depression, Psychosis, Schizophrenia Musculoskeletal: Report: No Pertinent Hx Rheumatologic: Report: No pertinent Hx Infectious Disease: Report: No Pertinent Hx Renal/: Report: Chronic Renal Insuff Endocrine: Report: Diabetes Dermatology: Report: No Pertinent Hx - Past Surgical History Past Surgical History: No pertinent Hx Family Medical History - Family Member Mother History Unknown: Yes Social History Smoke: No Alcohol: Other (h/o of acute alcohol withdrawal) Drugs: None Lives: With Family - Medications Home Medications: Home Medication Medication Instructions Recorded Type RX: Acetaminophen [Tylenol] 650 mg PO Q6HR PRN tab 10/12/17 Rx RX: Famotidine [Pepcid] 20 mg PO BID tab 10/12/17 Rx RX: Heparin Sodium [Heparin*] 5,000 units SUBQ Q12HR vial 10/12/17 Rx RX: Insulin Aspart Sliding Scale See Protocol SUBQ ACHS unit 10/12/17 Rx [NovoLOG INSULIN SLIDING SCALE] RX: Insulin Detemir [Levemir 20 units SUBQ DAILY vial 10/12/17 Rx Insulin] RX: Lorazepam [Ativan] 0.5 mg PO Q6HR PRN tab 10/12/17 Rx RX: Magnesium Hydroxide [Milk of 30 ml PO HS PRN udc 10/12/17 Rx Magnesia] RX: Metoprolol Succinate [Toprol [address] 10/12/17 Rx Xl] RX: OLANZapine ODT [ZyPREXA ZYDIS] 5 mg PO DAILY odt 10/12/17 Rx RX: Zolpidem Tartrate [Ambien] 5 mg PO HS PRN tab 10/12/17 Rx RX: cloNIDine HCl [Catapres] 0.1 mg PO Q8H PRN tab 10/12/17 Rx RX: metFORMIN [Glucophage] 1,000 mg PO DAILY tab 10/12/17 Rx - Allergies Allergies/Adverse Reactions: Allergies Allergy/AdvReac Type Severity Reaction Status Date / Time No Known Allergies Allergy Verified 10/02/17 21:28 Review of Systems - Review of Systems Constitutional: Report: Weakness, Malaise Eyes: Report: No Significant ENT: Report: No Significant Respiratory: Report: No Significant Cardiovascular: Report: No Significant Gastrointestinal: Report: No Significant Genitourinary: Report: No Significant Musculoskeletal: Report: No Significant Skin: Report: No Significant Neurological: Report: Confusion Physical Exam - Physical Exam HEENT: Report: Ears Nose Throat within normal limits, Pharnyx within normal limits Neck: Report: Within normal limits Cardiovascular Systems: Report: +s1/s2 noted, Regular, Rate and Rhythm Respiratory: Report: Breath Sounds are within normal limits, Clear to Auscultation of lung caruso Abdomen: Report: Non-tender to palpation Back: Report: Inspection of back is within normal limits. Skin: Report: Other (presence of sacral decubitus ulcer) - Assessment Assessment: sacral decubitus ulcer dehydration hypernatremia hyperglycemia dementia schizophrenia depression/anxiety acute renal insufficiency - Plan Plan: started on gentle fluid hydration repeat CBC,CMP tomorrow Nephrology consult with Dr. Sharp ID consult with Dr. Zackery Ramsey Gen Surgical consult w/ Dr. Greene start Rocephin 1gm IV daily
[2017-10-12] MEDS: INSULIN ASPART SLIDING SCALE 100 UNITS/ML UNIT SUBQ SCH ×2 (18:23→21:23)
[2017-10-12] MEDS: Sodium Chloride 0.45% 1,000 ML IV SCH (18:23)
[2017-10-12] MEDS: cefTRIAXone 1 GM in Sodium Chloride 0.9% 50 ML IV SCH (18:23)
[2017-10-12] MEDS ORDERED: Magnesium Hydroxide (MOM) 30 mL UDC PO PRN (19:28)
[2017-10-12 19:49] VITALS: BP 147/99
[2017-10-12] MEDS ORDERED: Pneumococcal Vaccine 0.5 mL Vial IM ONE (19:56)
--- NOTE | 2017-10-12 20:30 | Consultation ---
DATE OF CONSULTATION: 10/12/2017 CONSULTING PHYSICIAN: Dr. Meade. REFERRING PHYSICIAN: Wisam Hilario D.O. REASON FOR CONSULTATION: Aggression. CHIEF COMPLAINT: " get out of here." HISTORY OF PRESENT ILLNESS: The patient is a 76-year-old male who was recently transferred from [facility] for severe dehydration, hyperglycemia. He was recently treated for depression exacerbated to be aggressive behavior and delirium coming from noted as above. Today on [id number] evaluation, presents on upper restraints, easily irritable, extremely agitated according to the "leave me alone" and he started jumping from one topic to another. He continues to hallucinate. CURRENT MEDICAL PROBLEMS: Include hyponatremia, dehydration, hyperglycemia. CURRENT PSYCHIATRIC HISTORY: History of depression and dementia. LEGAL HISTORY: None. FAMILY PSYCHIATRIC HISTORY: None. LABS: Reviewed. ALLERGIES TO MEDICATIONS: NKDA. HOME MEDICATIONS: Include acetaminophen, famotidine, heparin, lorazepam as needed, olanzapine 5 mg p.o. every day, Ambien 5 mg as needed. Currently on metformin. PHYSICAL EXAMINATION: Irritable, easily agitated, delirium, fluctuation in mental status. Poor insight, judgment and impulse control. Unable to assess thought process, thought content, due to the patient's psychotic symptoms. ASSESSMENT AND PLAN: The patient with history of dementia with underlying delirium, coming from dehydration. At this time, recommend to continue to trend the underlying medical illness to continue reaching his baseline mental state. In the meantime in regards to addressing the patient's aggressive behavior and agitation, may consider continuing the olanzapine at 5 mg twice a day as tolerated by p.o. If he refuses p.o., may consider IM injections intermittently. As he becomes aggressive and agitated, may start. Also can validate his emotions at least continued basis to reduce the risk of the delirium. Will obtain more collateral baseline information. PRIMARY DIAGNOSIS: History of unspecified psychosis. SECONDARY DIAGNOSIS: Delirium. MEDICAL DIAGNOSIS: As noted above. PLAN: 1. Continue with under supervision. 2. The patient may need further treatment psychiatrically once medically stable. 3. We will continue monitoring, evaluating in the meantime. 4. Recommend to continue with olanzapine at 5 mg twice a day to target the patient's severe aggression behavior, coming from the delirium and also with a comorbid dementia that has been exacerbated by the underlying delirium at this point. 5. We will continue to validate his emotions. Thank you for consultation. We will continue to follow along side. JOB# [id number]
[2017-10-13 06:31] LABS: % BASOPHILS 0.3 % (0.0-2.0); % EOSINOPHILS 0.4 % (0.0-5.0); % LYMPHOCYTES 20.5 % (20.0-50.0); % NEUTROPHILS 73.8 % (40.0-80.0); HEMATOCRIT 52.6 % (41.0-60); LYMPHOCYTE ABSOLUTE 1.9 Th/cmm (1.5-3.0); MEAN CELL VOLUME 90.8 fl (80-99); MEAN CORPUSCULAR HEMOGLOBIN 29.4 pg (27.0-31.0); MEAN CORPUSCULAR HGB CONC 32.4 pg (28.0-36.0); MEAN PLATELET VOLUME 9.9 fl; MONOCYTE ABSOLUTE 0.5 Th/cmm (0.3-1.0); NEUTROPHILE ABSOLUTE 6.7 Th/cmm (1.8-8.0); PLATELET COUNT 237 Th/cmm (150-400); RED BLOOD COUNT 5.79 Mil/cmm (3.80-5.80); RED CELL DISTRIBUTION WIDTH 16.8 % (11.5-20.0); WHITE BLOOD COUNT 9.1 Th/cmm (4.8-10.8)
[2017-10-13 06:49] LABS: ALB/GLOB RATIO 0.9 (1.0-1.8); ALBUMIN 3.9 gm/dL (4.2-5.5); ALKALINE PHOSPHATASE 86 U/L (34-104); ANION GAP 21.3 (7.0-16.0); BILIRUBIN,TOTAL 0.8 mg/dL (0.3-1.0); BUN - UREA NITROGEN 56 mg/dL (7-25); CALCIUM SERUM 10.3 mg/dL (8.6-10.3); CHLORIDE 115 mEq/L (98-107); CREATININE - SERUM 2.2 mg/dL (0.7-1.3); POTASSIUM SERUM 4.3 mEq/L (3.5-5.1); SGOT 16 U/L (13-39); SGPT/ALT 19 U/L (7-52); SODIUM SERUM 157 mEq/L (136-145); TOTAL PROTEIN,SERUM 8.1 gm/dL (6.0-8.3)
[2017-10-13 06:51] LABS: GLUCOSE 215 mg/dL (70-105)
[2017-10-13] MEDS: INSULIN ASPART SLIDING SCALE 100 UNITS/ML UNIT SUBQ SCH ×6 (07:30→20:39)
--- NOTE | 2017-10-13 08:28 | General Progress Note ---
Subjective - Review of Systems Service Date: 10/13/17 Subjective: Patient was seen and examined. Oral Intake has improved. Appears more awake and alert today. Objective - Results Result Diagrams: 10/13/17 06:05 10/13/17 06:05 Recent Labs: Laboratory Last Values WBC 9.1 Th/cmm (4.8-10.8) 10/13/17 06:05 RBC 5.79 Mil/cmm (3.80-5.80) 10/13/17 06:05 Hgb 17.0 gm/dL (12-16) 10/13/17 06:05 Hct 52.6 % (41.0-60) 10/13/17 06:05 MCV 90.8 fl (80-99) 10/13/17 06:05 MCH 29.4 pg (27.0-31.0) 10/13/17 06:05 MCHC Differential 32.4 pg (28.0-36.0) 10/13/17 06:05 RDW 16.8 % (11.5-20.0) 10/13/17 06:05 Plt Count 237 Th/cmm (150-400) 10/13/17 06:05 MPV 9.9 fl 10/13/17 06:05 Neutrophils % 73.8 % (40.0-80.0) 10/13/17 06:05 Lymphocytes % 20.5 % (20.0-50.0) 10/13/17 06:05 Monocytes % 5.0 % (2.0-10.0) 10/13/17 06:05 Eosinophils % 0.4 % (0.0-5.0) 10/13/17 06:05 Basophils % 0.3 % (0.0-2.0) 10/13/17 06:05 Sodium 157 mEq/L (136-145) H 10/13/17 06:05 Potassium 4.3 mEq/L (3.5-5.1) 10/13/17 06:05 Chloride 115 mEq/L (98-107) H 10/13/17 06:05 Carbon Dioxide 25.0 mEq/L (21.0-31.0) 10/13/17 06:05 Anion Gap 21.3 (7.0-16.0) H 10/13/17 06:05 BUN 56 mg/dL (7-25) H 10/13/17 06:05 Creatinine 2.2 mg/dL (0.7-1.3) H 10/13/17 06:05 Est GFR ( Amer) TNP 10/13/17 06:05 Est GFR (Non-Af Amer) TNP 10/13/17 06:05 BUN/Creatinine Ratio 25.5 10/13/17 06:05 Glucose 215 mg/dL (70-105) H D 10/13/17 06:05 POC Glucose 197 MG/DL (70 - 105) H 10/13/17 05:35 Calcium 10.3 mg/dL (8.6-10.3) 10/13/17 06:05 Total Bilirubin 0.8 mg/dL (0.3-1.0) 10/13/17 06:05 AST 16 U/L (13-39) 10/13/17 06:05 ALT 19 U/L (7-52) 10/13/17 06:05 Alkaline Phosphatase 86 U/L (34-104) 10/13/17 06:05 Total Protein 8.1 gm/dL (6.0-8.3) 10/13/17 06:05 Albumin 3.9 gm/dL (4.2-5.5) L 10/13/17 06:05 Globulin 4.2 gm/dL 10/13/17 06:05 Albumin/Globulin Ratio 0.9 (1.0-1.8) L 10/13/17 06:05 - Physical Exam Vitals and I&O: Vital Signs Temp 97.6 F 10/13/17 05:00 Pulse 110 10/13/17 05:00 Resp 18 10/13/17 05:00 BP 145/89 10/13/17 05:00 Pulse Ox 96 10/13/17 05:00 Intake & Output 10/12/17 10/13/17 10/13/17 18:59 06:59 18:59 Intake Total 150 390 Balance 150 390 Weight (lbs) 71.441 kg 70.76 kg Intake: Intake, IV Amount 190 Sodium Chloride 0.45% 1, 140 000 ml @ 75 mls/hr IV . [id number] [facility] Rx#:[id number] cefTRIAXone 1 gm In 50 Sodium Chloride 0.9% 50 ml @ 100 mls/hr IV Q24HR [facility] Rx#:[id number] Oral 150 200 Other: # Voids 1 3 # Bowel Movements 0 0 Active Medications: Current Medications Acetaminophen (Tylenol) 650 mg PO Q6HR PRN PRN Reason: mild to moderate pain Stop: 12/11/17 19:27 Allopurinol (Zyloprim) 100 mg PO DAILY [facility] Stop: 12/12/17 08:59 Famotidine (Pepcid) 20 mg PO BID [facility] Stop: 12/12/17 08:59 Heparin Sodium (Porcine) (Heparin) 5,000 units SUBQ Q12HR [facility] PRN Reason: Protocol Stop: 12/11/17 20:59 Last Admin: 10/12/17 21:20 Dose: 5,000 units Ceftriaxone Sodium 1 gm/ (Sodium Chloride) 50 mls @ 100 mls/hr IV Q24HR [facility] Stop: 12/11/17 16:44 Last Infusion: 10/12/17 20:16 Dose: Infused Sodium Chloride (Nacl 0.45%) 1,000 mls @ 75 mls/hr IV .[id number] [facility] Stop: 12/11/17 16:59 Last Infusion: 10/12/17 20:15 Dose: 75 mls/hr Insulin Aspart (Novolog Insulin Sliding Scale) 0 units SUBQ ACHS [facility] PRN Reason: Protocol Stop: 12/11/17 16:29 Last Admin: 10/12/17 21:23 Dose: 2 units Insulin Aspart (Novolog Insulin Sliding Scale) 0 units SUBQ ACHS [facility] PRN Reason: Protocol Stop: 12/11/17 20:59 Lorazepam (Ativan) 0.5 mg PO Q6HR PRN; Protocol PRN Reason: agitation Stop: 12/11/17 19:27 Magnesium Hydroxide (Milk Of Magnesia) 30 ml PO HS PRN PRN Reason: Constipation Stop: 12/11/17 19:27 Metoprolol Succinate (Toprol Xl) 25 mg PO DAILY [facility] Stop: 12/12/17 08:59 Olanzapine (Zyprexa Zydis) 5 mg PO DAILY [facility] PRN Reason: Protocol Stop: 12/12/17 08:59 Zolpidem Tartrate (Ambien) 5 mg PO HS PRN PRN Reason: insomnia Stop: 12/11/17 19:27 General: Alert, Oriented x3 HEENT: Atraumatic, PERRLA Neck: Supple Cardiovascular: Regular rate, Normal S1, Normal S2 Lungs: Clear to auscultation Abdomen: Bowel sounds, Soft Extremities: no Clubbing, no Cyanosis, no Edema Assessment/Plan - Assessment Assessment: hypernatremia prerenal azotemia KEN with chronic renal failure depression/anxiety gout dementia - Plan Plan: will order repeat cmp,cbc renal consult -- Dr. Sharp sacral decubitus ... will order Gen Surgical consult -- / Jc for possible wound debridement Gout ... continue allopurinol 100mg PO daily
[2017-10-13] MEDS ORDERED: OLANZapine 5 mg Oral Disintegrating Tab PO SCH (09:00)
--- NOTE | 2017-10-13 09:13 | General Progress Note ---
Subjective - Review of Systems Service Date: 10/03/17 Events since last encounter: consult dictated called family, daughter speaks [place] informed consent discussed about debridement of ulcer and wound vac application Objective - Results Result Diagrams: 10/13/17 06:05 10/13/17 06:05 Recent Labs: Laboratory Last Values WBC 9.1 Th/cmm (4.8-10.8) 10/13/17 06:05 RBC 5.79 Mil/cmm (3.80-5.80) 10/13/17 06:05 Hgb 17.0 gm/dL (12-16) 10/13/17 06:05 Hct 52.6 % (41.0-60) 10/13/17 06:05 MCV 90.8 fl (80-99) 10/13/17 06:05 MCH 29.4 pg (27.0-31.0) 10/13/17 06:05 MCHC Differential 32.4 pg (28.0-36.0) 10/13/17 06:05 RDW 16.8 % (11.5-20.0) 10/13/17 06:05 Plt Count 237 Th/cmm (150-400) 10/13/17 06:05 MPV 9.9 fl 10/13/17 06:05 Neutrophils % 73.8 % (40.0-80.0) 10/13/17 06:05 Lymphocytes % 20.5 % (20.0-50.0) 10/13/17 06:05 Monocytes % 5.0 % (2.0-10.0) 10/13/17 06:05 Eosinophils % 0.4 % (0.0-5.0) 10/13/17 06:05 Basophils % 0.3 % (0.0-2.0) 10/13/17 06:05 Sodium 157 mEq/L (136-145) H 10/13/17 06:05 Potassium 4.3 mEq/L (3.5-5.1) 10/13/17 06:05 Chloride 115 mEq/L (98-107) H 10/13/17 06:05 Carbon Dioxide 25.0 mEq/L (21.0-31.0) 10/13/17 06:05 Anion Gap 21.3 (7.0-16.0) H 10/13/17 06:05 BUN 56 mg/dL (7-25) H 10/13/17 06:05 Creatinine 2.2 mg/dL (0.7-1.3) H 10/13/17 06:05 Est GFR ( Amer) TNP 10/13/17 06:05 Est GFR (Non-Af Amer) TNP 10/13/17 06:05 BUN/Creatinine Ratio 25.5 10/13/17 06:05 Glucose 215 mg/dL (70-105) H D 10/13/17 06:05 POC Glucose 197 MG/DL (70 - 105) H 10/13/17 05:35 Calcium 10.3 mg/dL (8.6-10.3) 10/13/17 06:05 Total Bilirubin 0.8 mg/dL (0.3-1.0) 10/13/17 06:05 AST 16 U/L (13-39) 10/13/17 06:05 ALT 19 U/L (7-52) 10/13/17 06:05 Alkaline Phosphatase 86 U/L (34-104) 10/13/17 06:05 Total Protein 8.1 gm/dL (6.0-8.3) 10/13/17 06:05 Albumin 3.9 gm/dL (4.2-5.5) L 10/13/17 06:05 Globulin 4.2 gm/dL 10/13/17 06:05 Albumin/Globulin Ratio 0.9 (1.0-1.8) L 10/13/17 06:05 - Physical Exam Vitals and I&O: Vital Signs Temp 97.6 F 10/13/17 05:00 Pulse 110 10/13/17 05:00 Resp 18 10/13/17 05:00 BP 145/89 10/13/17 05:00 Pulse Ox 96 10/13/17 05:00 Intake & Output 10/12/17 10/13/17 10/13/17 18:59 06:59 18:59 Intake Total 150 390 Balance 150 390 Weight (lbs) 71.441 kg 70.76 kg Intake: Intake, IV Amount 190 Sodium Chloride 0.45% 1, 140 000 ml @ 75 mls/hr IV . [id number] [facility] Rx#:[id number] cefTRIAXone 1 gm In 50 Sodium Chloride 0.9% 50 ml @ 100 mls/hr IV Q24HR [facility] Rx#:[id number] Oral 150 200 Other: # Voids 1 3 # Bowel Movements 0 0 Active Medications: Current Medications Acetaminophen (Tylenol) 650 mg PO Q6HR PRN PRN Reason: mild to moderate pain Stop: 12/11/17 19:27 Allopurinol (Zyloprim) 100 mg PO DAILY [facility] Stop: 12/12/17 08:59 Famotidine (Pepcid) 20 mg PO BID [facility] Stop: 12/12/17 08:59 Heparin Sodium (Porcine) (Heparin) 5,000 units SUBQ Q12HR [facility] PRN Reason: Protocol Stop: 12/11/17 20:59 Last Admin: 10/12/17 21:20 Dose: 5,000 units Ceftriaxone Sodium 1 gm/ (Sodium Chloride) 50 mls @ 100 mls/hr IV Q24HR [facility] Stop: 12/11/17 16:44 Last Infusion: 10/12/17 20:16 Dose: Infused Sodium Chloride (Nacl 0.45%) 1,000 mls @ 75 mls/hr IV .[id number] [facility] Stop: 12/11/17 16:59 Last Infusion: 10/12/17 20:15 Dose: 75 mls/hr Insulin Aspart (Novolog Insulin Sliding Scale) 0 units SUBQ ACHS [facility] PRN Reason: Protocol Stop: 12/11/17 16:29 Last Admin: 10/12/17 21:23 Dose: 2 units Insulin Aspart (Novolog Insulin Sliding Scale) 0 units SUBQ ACHS [facility] PRN Reason: Protocol Stop: 12/11/17 20:59 Lorazepam (Ativan) 0.5 mg PO Q6HR PRN; Protocol PRN Reason: agitation Stop: 12/11/17 19:27 Magnesium Hydroxide (Milk Of Magnesia) 30 ml PO HS PRN PRN Reason: Constipation Stop: 12/11/17 19:27 Metoprolol Succinate (Toprol Xl) 25 mg PO DAILY [facility] Stop: 12/12/17 08:59 Olanzapine (Zyprexa Zydis) 5 mg PO DAILY [facility] PRN Reason: Protocol Stop: 12/12/17 08:59 Zolpidem Tartrate (Ambien) 5 mg PO HS PRN PRN Reason: insomnia Stop: 12/11/17 19:27 General: Alert, Oriented x3 HEENT: Atraumatic, PERRLA Neck: Supple Cardiovascular: Regular rate, Normal S1, Normal S2 Lungs: Clear to auscultation Abdomen: Bowel sounds, Soft Extremities: no Clubbing, no Cyanosis, no Edema
--- NOTE | 2017-10-13 09:45 | Consultation ---
DATE OF CONSULTATION: SURGICAL CONSULT REFERRING PHYSICIAN: Dr. Hilario. REASON FOR CONSULTATION: Sacral decubitus ulcer. Thank you for referring this patient to me. HISTORY OF PRESENT ILLNESS: This is a 76-year-old male with dementia, admitted with aggressive behavior. The patient has had some restraints. The family was called over the phone and the daughter speaks Italian and informed me that the ulcer has been getting worse for the last 1 week. 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 He has in addition gout, diabetes mellitus and hypertension. His diabetes is under poor control. LABORATORY STUDIES: Showed the CBC to be within normal limits. The BUN is high at 56, creatinine of 2.2. Admission, blood sugar was 256. PHYSICAL EXAMINATION: GENERAL: Shows a large ulcer about 10 cm across in the sacrum, foul smelling with drainage. The patient is incontinent. RECOMMENDATIONS: For excisional debridement with wound VAC application. If the patient continues to have incontinence, might need to do diverting colostomy in the future. JOB# [id number] JOSHUA
[2017-10-13] MEDS: cefTRIAXone 1 GM in Sodium Chloride 0.9% 50 ML IV SCH (16:24)
[2017-10-13] MEDS: Venelex 60gm Tube TP SCH (17:52)
--- NOTE | 2017-10-13 20:25 | Consultation ---
DATE OF CONSULTATION: 10/13/2017 REASON FOR CONSULTATION: Worsening kidney function, electrolyte imbalance, and fluid management. HISTORY OF PRESENT ILLNESS: This is a 76-year-old male with past medical history of chronic kidney disease, who was transferred from to [facility] to [facility] due to dehydration. The patient was admitted at [facility] because of psychosis and dementia. However, his oral intake started to decline. Labs drawn revealed a sodium of 161 with a BUN/creatinine of 44/1.5. Blood sugar were persistently elevated. Thus, he was then transferred to [facility]. He was initiated immediately on IV fluids upon transfer. There was no history of nausea and vomiting as well as diarrhea. PAST MEDICAL HISTORY: 1. Psychosis. 2. Depression. 3. Chronic kidney disease. 4. Type 2 diabetes mellitus. 5. Gout. CURRENT MEDICATIONS: Allopurinol, ceftriaxone, clonidine, Pepcid, lorazepam, magnesium hydroxide, metoprolol, olanzapine, zolpidem. ALLERGIES: No known drug allergies. SOCIAL AND FAMILY HISTORY: I was not able to obtain directly from the patient because of his dementia and confusion. REVIEW OF SYSTEMS: Again, I was not able to decipher directly from the patient because of the mentioned reasons. PHYSICAL EXAMINATION: GENERAL: The patient is awake and verbal, but quite confused, disoriented. VITAL SIGNS: Temperature 97.6, pulse 78, and blood pressure 145/89. SKIN: Poor turgor, warm. No rash, no jaundice appreciated. HEENT: Head normocephalic, atraumatic. Eyes: Extraocular muscles are intact. Pupils equal, round, reactive to light and accommodates. Anicteric sclerae. Pale conjunctivae. Nose, midline nasal septum. Mouth: Dry mucosa, poor dentition. NECK: Supple, no adenopathy, no thyromegaly, no bruits. Trachea palpated in the midline. CHEST AND CARDIOVASCULAR: S1, S2. No rub, murmur, nor gallop appreciated. Point of maximal impulse fifth intercostal space, left midclavicular line. No abdominal or femoral bruits appreciated. LUNGS: Equal expansion. No use of accessory muscles. No supraclavicular retractions. Decreased breath sounds, few rhonchi, but no rales nor wheezes appreciated. ABDOMEN: Mildly globular, soft. Positive for bowel sounds. No bruits either diastolic or systolic. RECTAL: Lax sphincter tone. GENITOURINARY: Normal appearing male genitalia. MUSCULOSKELETAL: No effusions present in his joints with adequate range of motion. EXTREMITIES: No evidence of any edema, cyanosis, nor clubbing with palpable femoral, but unable to fully appreciate popliteal and dorsalis pedis pulses. NEUROLOGIC: The patient is awake, verbal; however, due to his confusion and dementia, was not able to follow my neuro commands, so I was not able to pursue further my neuro exam. LABORATORY DATA: Did reveal sodium 157, potassium 4.3, chloride 115, bicarbonate 25, BUN 56, creatinine 2.2, glucose 364, albumin 3.1. White count 9.6, hemoglobin 7, hematocrit 52.6, platelets 237, and polys 73.8%. IMPRESSION: 1. Acute kidney injury on chronic kidney disease. Chronic kidney disease is likely due to diabetic nephropathy because of longstanding history of diabetes. He may have some underlying hypertensive nephrosclerosis. Acute kidney injury is initially prerenal in nature due to severe decrease in his oral intake. This was supported by poor skin turgor and dry oral mucosa. His prerenal eventually progressed to acute tubular injury. 2. Stage IV sacral decubitus ulcer. 3. Severe dehydration. 4. Essential hypertension with chronic kidney disease. 5. Type 2 diabetes mellitus with chronic kidney disease. 6. Psychosis. 7. Depression. 8. Gout. PLAN: 1. Continue with IV fluids. 2. Renal ultrasound. 3. Urinalysis. 4. Urine sodium, eosinophils, and creatinine. 5. Renal ultrasound. 6. Electrolytes, hemoglobin A1c, TSH. 7. Increase metoprolol due to elevated blood pressure. JOB# [id number]
--- NOTE | 2017-10-14 00:15 | Progress Notes ---
DATE: 10/13/[address] Rainey. Case was discussed with staff of the patient, reviewed records. This is a 76-year-old male who transferred to Med/Surg from the [facility]. He was dehydrated, hyperglycemic, treated for depression, aggressive behavior, delirium, and coming from his medical condition. The patient today is cooperative, calm, and responding well to redirection. He is sleeping well and eating well. He was asking the staff to hug him. He is compliant with the medication with no side effects, no sedation, no nausea, and no extrapyramidal symptoms. He is on Zyprexa 5 mg at bedtime. Thank you very much for allowing me to participate in the care of this most interesting gentleman. JOB# [id number]
[2017-10-14] MEDS: Sodium Chloride 0.45% 1,000 ML IV SCH (00:19)
[2017-10-14] MEDS: INSULIN ASPART SLIDING SCALE 100 UNITS/ML UNIT SUBQ SCH ×4 (06:32→20:38)
[2017-10-14 06:36] LABS: % BASOPHILS 0.1 % (0.0-2.0); % EOSINOPHILS 1.6 % (0.0-5.0); % LYMPHOCYTES 25.3 % (20.0-50.0); % MONOCYTES 5.4 % (2.0-10.0); % NEUTROPHILS 67.6 % (40.0-80.0); EOSINOPHILE ABSOLUTE 0.1 Th/cmm (0.1-0.4); HEMATOCRIT 47.8 % (41.0-60); HEMOGLOBIN 15.6 gm/dL (12-16); MEAN CELL VOLUME 89.6 fl (80-99); MEAN CORPUSCULAR HEMOGLOBIN 29.3 pg (27.0-31.0); MEAN CORPUSCULAR HGB CONC 32.7 pg (28.0-36.0); MEAN PLATELET VOLUME 9.7 fl; MONOCYTE ABSOLUTE 0.4 Th/cmm (0.3-1.0); NEUTROPHILE ABSOLUTE 5.5 Th/cmm (1.8-8.0); PLATELET COUNT 198 Th/cmm (150-400); RED BLOOD COUNT 5.33 Mil/cmm (3.80-5.80); RED CELL DISTRIBUTION WIDTH 17.2 % (11.5-20.0)
[2017-10-14 06:50] LABS: INR 1.01 (0.5-1.4); PROTHROMBIN TIME (TEST) 10.5 SECONDS (9.5-11.5)
[2017-10-14 06:54] LABS: ALB/GLOB RATIO 0.9 (1.0-1.8); ALBUMIN 3.7 gm/dL (4.2-5.5); ALKALINE PHOSPHATASE 84 U/L (34-104); ANION GAP 13.8 (7.0-16.0); BILIRUBIN,TOTAL 0.9 mg/dL (0.3-1.0); BUN - UREA NITROGEN 56 mg/dL (7-25); CALCIUM SERUM 9.9 mg/dL (8.6-10.3); CARBON DIOXIDE 25.8 mEq/L (21.0-31.0); CHLORIDE 117 mEq/L (98-107); CREATININE - SERUM 1.8 mg/dL (0.7-1.3); GLUCOSE 262 mg/dL (70-105); MAGNESIUM 2.9 mg/dL (1.9-2.7); PHOSPHOROUS 4.1 mg/dL (2.5-5.0); POTASSIUM SERUM 4.6 mEq/L (3.5-5.1); SGOT 15 U/L (13-39); SGPT/ALT 17 U/L (7-52); SODIUM SERUM 152 mEq/L (136-145); TOTAL PROTEIN,SERUM 7.7 gm/dL (6.0-8.3); URIC ACID 11.9 mg/dL (4.4-7.6)
[2017-10-14] MEDS ORDERED: Venelex 60gm Tube TP ONE (08:20)
--- NOTE | 2017-10-14 08:21 | Diagnostic Imaging Report ---
Portable chest x-ray Time: 0432 hours History: Preop Allowing for portable technique the heart size is normal. No focal pulmonary parenchymal processes. No hilar or mediastinal abnormalities. Impression: No acute abnormalities.
--- NOTE | 2017-10-14 08:22 | General Progress Note ---
Subjective - Review of Systems Service Date: 10/14/17 Subjective: Patient was seen and examined. Oral Intake has improved. Appears more awake and alert today. more awake, more alert. For possible debridement of sacral decubitus ulcer. Objective - Results Result Diagrams: 10/14/17 06:00 10/14/17 06:00 Recent Labs: Laboratory Last Values WBC 8.0 Th/cmm (4.8-10.8) 10/14/17 06:00 RBC 5.33 Mil/cmm (3.80-5.80) 10/14/17 06:00 Hgb 15.6 gm/dL (12-16) 10/14/17 06:00 Hct 47.8 % (41.0-60) 10/14/17 06:00 MCV 89.6 fl (80-99) 10/14/17 06:00 MCH 29.3 pg (27.0-31.0) 10/14/17 06:00 MCHC Differential 32.7 pg (28.0-36.0) 10/14/17 06:00 RDW 17.2 % (11.5-20.0) 10/14/17 06:00 Plt Count 198 Th/cmm (150-400) 10/14/17 06:00 MPV 9.7 fl 10/14/17 06:00 Neutrophils % 67.6 % (40.0-80.0) 10/14/17 06:00 Lymphocytes % 25.3 % (20.0-50.0) 10/14/17 06:00 Monocytes % 5.4 % (2.0-10.0) 10/14/17 06:00 Eosinophils % 1.6 % (0.0-5.0) 10/14/17 06:00 Basophils % 0.1 % (0.0-2.0) 10/14/17 06:00 PT 10.5 SECONDS (9.5-11.5) 10/14/17 06:00 INR 1.01 (0.5-1.4) 10/14/17 06:00 PTT (Actin FS) 25.3 SECONDS (26.0-38.0) L 10/14/17 06:00 Sodium 152 mEq/L (136-145) H 10/14/17 06:00 Potassium 4.6 mEq/L (3.5-5.1) 10/14/17 06:00 Chloride 117 mEq/L (98-107) H 10/14/17 06:00 Carbon Dioxide 25.8 mEq/L (21.0-31.0) 10/14/17 06:00 Anion Gap 13.8 (7.0-16.0) 10/14/17 06:00 BUN 56 mg/dL (7-25) H 10/14/17 06:00 Creatinine 1.8 mg/dL (0.7-1.3) H 10/14/17 06:00 Est GFR ( Amer) TNP 10/14/17 06:00 Est GFR (Non-Af Amer) TNP 10/14/17 06:00 BUN/Creatinine Ratio 31.1 10/14/17 06:00 Glucose 262 mg/dL (70-105) H 10/14/17 06:00 POC Glucose 246 MG/DL (70 - 105) H 10/14/17 05:57 Uric Acid 11.9 mg/dL (4.4-7.6) H 10/14/17 06:00 Calcium 9.9 mg/dL (8.6-10.3) 10/14/17 06:00 Phosphorus 4.1 mg/dL (2.5-5.0) 10/14/17 06:00 Magnesium 2.9 mg/dL (1.9-2.7) H 10/14/17 06:00 Total Bilirubin 0.9 mg/dL (0.3-1.0) 10/14/17 06:00 AST 15 U/L (13-39) 10/14/17 06:00 ALT 17 U/L (7-52) 10/14/17 06:00 Alkaline Phosphatase 84 U/L (34-104) 10/14/17 06:00 Total Protein 7.7 gm/dL (6.0-8.3) 10/14/17 06:00 Albumin 3.7 gm/dL (4.2-5.5) L 10/14/17 06:00 Globulin 4.0 gm/dL 10/14/17 06:00 Albumin/Globulin Ratio 0.9 (1.0-1.8) L 10/14/17 06:00 TSH 0.28 uIU/ml (0.34-5.60) L 10/14/17 06:00 - Physical Exam Vitals and I&O: Vital Signs Temp 98.4 F 10/14/17 04:00 Pulse 89 10/14/17 04:00 Resp 18 10/14/17 04:00 BP 132/82 10/14/17 04:00 Pulse Ox 99 10/14/17 04:00 Intake & Output 10/13/17 10/14/17 10/14/17 18:59 06:59 18:59 Intake Total 1210 Balance 1210 Weight (lbs) 70.76 kg 70.76 kg Intake: Intake, IV Amount 860 Sodium Chloride 0.45% 1, 860 000 ml @ 75 mls/hr IV . [id number] [facility] Rx#:[id number] Oral 350 Other: # Voids 3 4 # Bowel Movements 1 0 Active Medications: Current Medications Acetaminophen (Tylenol) 650 mg PO Q6HR PRN PRN Reason: mild to moderate pain Stop: 12/11/17 19:27 Allopurinol (Zyloprim) 100 mg PO DAILY [facility] Stop: 12/12/17 08:59 Last Admin: 10/13/17 10:24 Dose: 100 mg [place] Oil/Turk[place] Balsam/Trypsin (Venelex) 1 appl TP DAILY [facility] Stop: 12/12/17 15:59 Last Admin: 10/13/17 17:52 Dose: 1 appl Famotidine (Pepcid) 20 mg PO BID [facility] Stop: 12/12/17 08:59 Last Admin: 10/13/17 17:52 Dose: 20 mg Heparin Sodium (Porcine) (Heparin) 5,000 units SUBQ Q12HR [facility] PRN Reason: Protocol Stop: 12/11/17 20:59 Last Admin: 10/13/17 20:34 Dose: 5,000 units Ceftriaxone Sodium 1 gm/ (Sodium Chloride) 50 mls @ 100 mls/hr IV Q24HR [facility] Stop: 12/11/17 16:44 Last Admin: 10/13/17 16:24 Dose: 100 mls/hr Sodium Chloride (Nacl 0.45%) 1,000 mls @ 75 mls/hr IV .[id number] [facility] Stop: 12/11/17 16:59 Last Admin: 10/14/17 00:19 Dose: 75 mls/hr Insulin Aspart (Novolog Insulin Sliding Scale) 0 units SUBQ ACHS [facility] PRN Reason: Protocol Stop: 12/11/17 20:59 Last Admin: 10/14/17 06:32 Dose: Not Given Lorazepam (Ativan) 0.5 mg PO Q6HR PRN; Protocol PRN Reason: agitation Stop: 12/11/17 19:27 Magnesium Hydroxide (Milk Of Magnesia) 30 ml PO HS PRN PRN Reason: Constipation Stop: 12/11/17 19:27 Metoprolol Succinate (Toprol Xl) 25 mg PO BID [facility] Stop: 12/12/17 16:59 Last Admin: 10/13/17 17:53 Dose: 25 mg Miscellaneous (Clinical Monitoring) 1 ea [facility] PRN PRN PRN Reason: RENAL Stop: 12/12/17 10:33 Olanzapine (Zyprexa Zydis) 5 mg PO DAILY [facility] PRN Reason: Protocol Stop: 12/12/17 08:59 Zolpidem Tartrate (Ambien) 5 mg PO HS PRN PRN Reason: insomnia Stop: 12/11/17 19:27 General: Alert, Oriented x3 HEENT: Atraumatic, PERRLA Neck: Supple Cardiovascular: Regular rate, Normal S1, Normal S2 Lungs: Clear to auscultation Abdomen: Bowel sounds, Soft Extremities: no Clubbing, no Cyanosis, no Edema Assessment/Plan - Assessment Assessment: hypernatremia prerenal azotemia hyperglycemia depression/anxiety gout dementia schizophrenia - Plan Plan: will order repeat cmp,cbc tomorrow AM renal consult -- Dr. Sharp sacral decubitus ... will order Gen Surgical consult -- Dr. Greene for possible wound debridement Gout ... continue allopurinol 100mg PO daily
[2017-10-14] MEDS ORDERED: fentaNYL Citrate 100 mcg/2mL Vial ONE (08:33)
[2017-10-14] MEDS ORDERED: PROPOFOL SURGERY USE ONLY IV ONE (08:34)
[2017-10-14] MEDS ORDERED: Midazolam 1mg/ml 2 ml vial IV ONE (08:34)
--- NOTE | 2017-10-14 09:02 | Operative Report ---
DATE OF SURGERY: 10/14/2017 PREOPERATIVE DIAGNOSES: 1. Stage 4 sacral decubitus ulcer. 2. Diabetes mellitus with poor control. 3. Dementia. POSTOPERATIVE DIAGNOSIS: Stage 3 sacral decubitus ulcer. OPERATION DONE: Excisional debridement, application of wound VAC. SURGEON: Fermin Greene MD. ANESTHESIA: MAC. ANESTHESIOLOGIST: Lydia Ojeda. ESTIMATED BLOOD LOSS: 5 mL. OPERATIVE FINDINGS: Sacral decubitus ulcer, stage 3, not clinically involving the bone. DESCRIPTION OF PROCEDURE: The patient was given IV sedation. He was placed in the left lateral decubitus position. The area was prepped with Betadine and draped. A 1% lidocaine was used to infiltrate the area around the ulcer, which measured 7 x 10 cm. Therefore the ulcer; however, did not involve the bone down to subcutaneous tissues and muscle. It was sharply debrided with a knife and cautery was used for hemostasis. Venelex was applied, silver foam and then the wound VAC. The patient tolerated the procedure well. JOB# [id number]
[2017-10-14] MEDS: Venelex 60gm Tube TP SCH (10:00)
--- NOTE | 2017-10-14 11:15 | Consultation ---
Consult Note - Consult Note Service Date: 10/14/17 Referring Physician: Wisam Hilario Consult Note: PHYSICIAN Consultation Note: Date of Admission: 10/12/17 Purpose of Consultation: Infected sacral wound. Chief Complaint: Patient JET CHAVEZ was admitted to [facility] with DEHYDRATION. History of Present Illness: 76 mL with a past medical history of diabetes mellitus type 2, dementia, depression, psychosis, schizophrenia initially admitted to geropsychiatric unit for severe depression. As he had very poor oral intake, hypernatremia, dehydration, hyperglycemia, he was transferred to acute care unit. Patient was also found to have cyclical breast ulcer stage III. It was debrided today by Dr. Greene. The wound was badly infected. Infectious disease consultation was called for antibiotic management. Past Medical History: diabetes mellitus type 2, dementia, depression, psychosis , schizophrenia Diagnoses TYPE 2 DIABETES MELLITUS WITH HYPERGLYCEMIA (10/12/17) DEHYDRATION (10/12/17) HYPEROSMOLALITY AND HYPERNATREMIA (10/12/17) UNSPECIFIED DEMENTIA WITHOUT BEHAVIORAL DISTURBANCE (10/12/17) SCHIZOPHRENIA, UNSPECIFIED (10/12/17) UNSP PSYCHOSIS NOT DUE TO A SUBSTANCE OR KNOWN PHYSIOL COND (10/12/17) DISORIENTATION, UNSPECIFIED (10/12/17) Allergies Allergy/AdvReac Type Severity Reaction Status Date / Time No Known Allergies Allergy Verified 10/02/17 21:28 Vital Signs Temp 98.4 F 10/14/17 04:00 Pulse 91 10/14/17 10:00 Resp 18 10/14/17 04:00 BP 137/87 10/14/17 10:00 Pulse Ox 99 10/14/17 04:00 Intake & Output 10/13/17 10/14/17 10/14/17 18:59 06:59 18:59 Intake Total 1210 Balance 1210 Weight (lbs) 70.76 kg 70.76 kg Intake: Intake, IV Amount 860 Sodium Chloride 0.45% 1, 860 000 ml @ 75 mls/hr IV . [id number] [facility] Rx#:[id number] Oral 350 Other: # Voids 3 4 # Bowel Movements 1 0 Laboratory Results - last 24 hr 10/13/17 10/13/17 10/13/17 12:39 16:30 20:33 WBC RBC Hgb Hct MCV MCH MCHC Differential RDW Plt Count MPV Neutrophils % Lymphocytes % Monocytes % Eosinophils % Basophils % PT INR PTT (Actin FS) Sodium Potassium Chloride Carbon Dioxide Anion Gap BUN Creatinine Est GFR ( Amer) Est GFR (Non-Af Amer) BUN/Creatinine Ratio Glucose POC Glucose 364 H 235 H 180 H Uric Acid Calcium Phosphorus Magnesium Total Bilirubin AST ALT Alkaline Phosphatase Total Protein Albumin Globulin Albumin/Globulin Ratio TSH 10/14/17 10/14/17 10/14/17 05:57 06:00 06:00 WBC 8.0 RBC 5.33 Hgb 15.6 Hct 47.8 MCV 89.6 MCH 29.3 MCHC Differential 32.7 RDW 17.2 Plt Count 198 MPV 9.7 Neutrophils % 67.6 Lymphocytes % 25.3 Monocytes % 5.4 Eosinophils % 1.6 Basophils % 0.1 PT INR PTT (Actin FS) Sodium 152 H Potassium 4.6 Chloride 117 H Carbon Dioxide 25.8 Anion Gap 13.8 BUN 56 H Creatinine 1.8 H Est GFR ( Amer) TNP Est GFR (Non-Af Amer) TNP BUN/Creatinine Ratio 31.1 Glucose 262 H POC Glucose 246 H Uric Acid 11.9 H Calcium 9.9 Phosphorus 4.1 Magnesium 2.9 H Total Bilirubin 0.9 AST 15 ALT 17 Alkaline Phosphatase 84 Total Protein 7.7 Albumin 3.7 L Globulin 4.0 Albumin/Globulin Ratio 0.9 L TSH 10/14/17 10/14/17 06:00 06:00 WBC RBC Hgb Hct MCV MCH MCHC Differential RDW Plt Count MPV Neutrophils % Lymphocytes % Monocytes % Eosinophils % Basophils % PT 10.5 INR 1.01 PTT (Actin FS) 25.3 L Sodium Potassium Chloride Carbon Dioxide Anion Gap BUN Creatinine Est GFR ( Amer) Est GFR (Non-Af Amer) BUN/Creatinine Ratio Glucose POC Glucose Uric Acid Calcium Phosphorus Magnesium Total Bilirubin AST ALT Alkaline Phosphatase Total Protein Albumin Globulin Albumin/Globulin Ratio TSH 0.28 L Home Medication Medication Instructions Recorded Type Acetaminophen [Tylenol] 650 mg PO Q6HR PRN tab 10/12/17 Rx Famotidine [Pepcid] 20 mg PO BID tab 10/12/17 Rx Heparin Sodium [Heparin*] 5,000 units SUBQ Q12HR vial 10/12/17 Rx Insulin Aspart Sliding Scale See Protocol SUBQ ACHS unit 10/12/17 Rx [NovoLOG INSULIN SLIDING SCALE] Insulin Detemir [Levemir Insulin] 20 units SUBQ DAILY vial 10/12/17 Rx Lorazepam [Ativan] 0.5 mg PO Q6HR PRN tab 10/12/17 Rx Magnesium Hydroxide [Milk of 30 ml PO HS PRN udc 10/12/17 Rx Magnesia] Metoprolol Succinate [Toprol Xl] [address] 10/12/17 Rx OLANZapine ODT [ZyPREXA ZYDIS] 5 mg PO DAILY odt 10/12/17 Rx Zolpidem Tartrate [Ambien] 5 mg PO HS PRN tab 10/12/17 Rx cloNIDine HCl [Catapres] 0.1 mg PO Q8H PRN tab 10/12/17 Rx metFORMIN [Glucophage] 1,000 mg PO DAILY tab 10/12/17 Rx Current Medications Generic Name Dose Route Start Last Admin Trade Name Freq PRN Reason Stop Dose Admin Acetaminophen 650 mg 10/12/17 19:28 Tylenol PO 12/11/17 19:27 Q6HR PRN mild to moderate pain Allopurinol 100 mg 10/13/17 09:00 10/14/17 10:00 Zyloprim PO 12/12/17 08:59 Not Given DAILY [facility] [place] Oil/Italian Balsam/Trypsin 1 appl 10/13/17 16:00 10/14/17 10:00 Venelex TP 12/12/17 15:59 1 appl DAILY [facility] Administration Famotidine 20 mg 10/13/17 09:00 10/14/17 10:00 Pepcid PO 12/12/17 08:59 Not Given BID [facility] Heparin Sodium (Porcine) 5,000 units 10/12/17 21:00 10/13/17 20:34 Heparin SUBQ 12/11/17 20:59 5,000 units Q12HR [facility] Administration Protocol Ceftriaxone Sodium 1 gm/ 50 mls @ 100 mls/hr 10/12/17 16:45 10/13/17 16:24 Sodium Chloride IV 12/11/17 16:44 100 mls/hr Q24HR [facility] Administration Insulin Aspart 0 units 10/12/17 21:00 10/14/17 06:32 Novolog Insulin Sliding Scale SUBQ 12/11/17 20:59 Not Given ACHS [facility] Protocol Lorazepam 0.5 mg 10/12/17 19:28 Ativan PO 04/26/18 19:27 Q6HR PRN agitation Protocol Magnesium Hydroxide 30 ml 10/12/17 19:28 Milk Of Magnesia PO 12/11/17 19:27 HS PRN Constipation Metoprolol Succinate 25 mg 10/13/17 17:00 10/14/17 10:00 Toprol Xl PO 12/12/17 16:59 Not Given BID [facility] Miscellaneous 1 ea 10/13/17 10:34 Clinical Monitoring 12/12/17 10:33 PRN PRN RENAL Olanzapine 5 mg 10/14/17 17:00 Zyprexa Zydis PO 12/13/17 16:59 BID [facility] Protocol Zolpidem Tartrate 5 mg 10/12/17 19:28 Ambien PO 12/11/17 19:27 HS PRN insomnia Review of Systems: A 12 point ROS was reviewed with the pertinent positive and negatives noted in the HPI. Conscious stop: No fever, no chills. No drowsiness. Patient is bedridden. HEENT: Patient denies any headache, diplopia, photophobia also felt. Respiratory system: Patient denies any cough or shortness of breath. CVS: Patient denies any chest pain or palpitation. GI: Patient initially nausea, vomiting, diarrhea, abdominal pain, constipation. : Patient denies any dysuria, hematuria. Skin: Patient has large decubitus ulcer in the sacrococcygeal area. 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 Smoking Status Never smoker Drug Use No Alcohol Use No Family Medical History Unknown. Physical Exam: General: Well-nourished. Well-nourished. HEENT: Head: Normocephalic, atraumatic. Oral cavity: Moist pink tongue. Eyes : The pupils PERRLA. EOMI. No pallor. No icterus. Neck: Supple, no JVD no use of accessory neck muscles. Cardio: S1 and S2 within normal limits regular rhythm. Respiratory: Vesicular sounds, no crackles no wheezing. Abdominal: Soft, Nontender, nondistended, bowel sounds present. Genital/Urinary: Deferred. Extremities: No cyanosis, no clubbing, no edema. Neurological: Alert, awake,. Communicates well. Skin: Patient has a stage III decubitus ulcer in sacral area Assessment: 1. Sacral stage III decubitus ulcer, infected. 2. Status post I&D. 3. Diabetes mellitus type . 4. Dementia. 5. Depression. 6. psychosis. 7. Schizophrenia Plan: Continue wound care. Continue Rocephin for a few more days. Thank you Dr. Hilario, for involving me in taking care of this patient Signed, Zackery Ramsey M.D.
--- NOTE | 2017-10-14 12:47 | Diagnostic Imaging Report ---
Renal ultrasound HISTORY: Acute renal failure. COMPARISON: None Technique: Sonography of the kidneys and urinary bladder was performed in multiple planes. FINDINGS: The right kidney measures 9.2 x 5.2 x 4.1 cm demonstrating a sonolucent lesion of the superior pole measuring 3.3 x 3.2 cm. No hydronephrosis. The left kidney measures 10.2 x 5.4 cm. No evidence of focal lesions or hydronephrosis. Enlarged prostate gland is seen in mass effect upon the base of the urinary bladder. The prostate gland measures 3.5 x 4.8 cm. Mild urinary bladder wall prominence is noted. Note, Patient was incontinent. IMPRESSION: No evidence of hydronephrosis. Right 3.3 x 3.2 cm cyst. Mildly prominent prostate gland with mass effect upon the base of the urinary bladder. Please correlate with clinical findings and PSA levels Mild urinary bladder wall thickening. Infectious or inflammatory processes cannot be excluded.
[2017-10-14] MEDS ORDERED: OLANZapine 5 mg Oral Disintegrating Tab PO SCH (17:00)
[2017-10-14] MEDS: cefTRIAXone 1 GM in Sodium Chloride 0.9% 50 ML IV SCH (17:45)
--- NOTE | 2017-10-14 18:53 | General Progress Note ---
Subjective - Review of Systems Service Date: 10/14/17 Subjective: awake, verbal, still confused Objective - Results Result Diagrams: 10/14/17 06:00 10/14/17 06:00 Recent Labs: Laboratory Last Values WBC 8.0 Th/cmm (4.8-10.8) 10/14/17 06:00 RBC 5.33 Mil/cmm (3.80-5.80) 10/14/17 06:00 Hgb 15.6 gm/dL (12-16) 10/14/17 06:00 Hct 47.8 % (41.0-60) 10/14/17 06:00 MCV 89.6 fl (80-99) 10/14/17 06:00 MCH 29.3 pg (27.0-31.0) 10/14/17 06:00 MCHC Differential 32.7 pg (28.0-36.0) 10/14/17 06:00 RDW 17.2 % (11.5-20.0) 10/14/17 06:00 Plt Count 198 Th/cmm (150-400) 10/14/17 06:00 MPV 9.7 fl 10/14/17 06:00 Neutrophils % 67.6 % (40.0-80.0) 10/14/17 06:00 Lymphocytes % 25.3 % (20.0-50.0) 10/14/17 06:00 Monocytes % 5.4 % (2.0-10.0) 10/14/17 06:00 Eosinophils % 1.6 % (0.0-5.0) 10/14/17 06:00 Basophils % 0.1 % (0.0-2.0) 10/14/17 06:00 PT 10.5 SECONDS (9.5-11.5) 10/14/17 06:00 INR 1.01 (0.5-1.4) 10/14/17 06:00 PTT (Actin FS) 25.3 SECONDS (26.0-38.0) L 10/14/17 06:00 Sodium 152 mEq/L (136-145) H 10/14/17 06:00 Potassium 4.6 mEq/L (3.5-5.1) 10/14/17 06:00 Chloride 117 mEq/L (98-107) H 10/14/17 06:00 Carbon Dioxide 25.8 mEq/L (21.0-31.0) 10/14/17 06:00 Anion Gap 13.8 (7.0-16.0) 10/14/17 06:00 BUN 56 mg/dL (7-25) H 10/14/17 06:00 Creatinine 1.8 mg/dL (0.7-1.3) H 10/14/17 06:00 Est GFR ( Amer) TNP 10/14/17 06:00 Est GFR (Non-Af Amer) TNP 10/14/17 06:00 BUN/Creatinine Ratio 31.1 10/14/17 06:00 Glucose 262 mg/dL (70-105) H 10/14/17 06:00 POC Glucose 236 MG/DL (70 - 105) H 10/14/17 13:31 Uric Acid 11.9 mg/dL (4.4-7.6) H 10/14/17 06:00 Calcium 9.9 mg/dL (8.6-10.3) 10/14/17 06:00 Phosphorus 4.1 mg/dL (2.5-5.0) 10/14/17 06:00 Magnesium 2.9 mg/dL (1.9-2.7) H 10/14/17 06:00 Total Bilirubin 0.9 mg/dL (0.3-1.0) 10/14/17 06:00 AST 15 U/L (13-39) 10/14/17 06:00 ALT 17 U/L (7-52) 10/14/17 06:00 Alkaline Phosphatase 84 U/L (34-104) 10/14/17 06:00 Total Protein 7.7 gm/dL (6.0-8.3) 10/14/17 06:00 Albumin 3.7 gm/dL (4.2-5.5) L 10/14/17 06:00 Globulin 4.0 gm/dL 10/14/17 06:00 Albumin/Globulin Ratio 0.9 (1.0-1.8) L 10/14/17 06:00 TSH 0.28 uIU/ml (0.34-5.60) L 10/14/17 06:00 - Physical Exam Vitals and I&O: Vital Signs Temp 98.2 F 10/14/17 16:00 Pulse 99 10/14/17 18:23 Resp 20 10/14/17 16:00 BP 141/83 10/14/17 18:23 Pulse Ox 97 10/14/17 16:00 Intake & Output 10/13/17 10/14/17 10/14/17 18:59 06:59 18:59 Intake Total 1260 720 Output Total 0 Balance 1260 720 Weight (lbs) 70.76 kg 70.76 kg 70.76 kg Intake: Intake, IV Amount 910 Sodium Chloride 0.45% 1, 860 000 ml @ 75 mls/hr IV . [id number] [facility] Rx#:[id number] cefTRIAXone 1 gm In 50 Sodium Chloride 0.9% 50 ml @ 100 mls/hr IV Q24HR [facility] Rx#:[id number] Oral 350 720 Output: Stool 0 Other: # Voids 3 4 4 # Bowel Movements 1 0 0 Active Medications: Current Medications Acetaminophen (Tylenol) 650 mg PO Q6HR PRN PRN Reason: mild to moderate pain Stop: 12/11/17 19:27 Allopurinol (Zyloprim) 100 mg PO DAILY [facility] Stop: 12/12/17 08:59 Last Admin: 10/14/17 10:00 Dose: Not Given [place] Oil/[place] Balsam/Trypsin (Venelex) 1 appl TP DAILY [facility] Stop: 12/12/17 15:59 Last Admin: 10/14/17 10:00 Dose: 1 appl Famotidine (Pepcid) 20 mg PO BID [facility] Stop: 12/12/17 08:59 Last Admin: 10/14/17 18:22 Dose: 20 mg Heparin Sodium (Porcine) (Heparin) 5,000 units SUBQ Q12HR [facility] PRN Reason: Protocol Stop: 12/11/17 20:59 Last Admin: 10/14/17 07:50 Dose: Not Given Ceftriaxone Sodium 1 gm/ (Sodium Chloride) 50 mls @ 100 mls/hr IV Q24HR [facility] Stop: 12/11/17 16:44 Last Admin: 10/14/17 17:45 Dose: 100 mls/hr Insulin Aspart (Novolog Insulin Sliding Scale) 0 units SUBQ ACHS [facility] PRN Reason: Protocol Stop: 12/11/17 20:59 Last Admin: 10/14/17 18:23 Dose: 6 units Lorazepam (Ativan) 0.5 mg PO Q6HR PRN; Protocol PRN Reason: agitation Stop: 12/11/17 19:27 Magnesium Hydroxide (Milk Of Magnesia) 30 ml PO HS PRN PRN Reason: Constipation Stop: 12/11/17 19:27 Metoprolol Succinate (Toprol Xl) 25 mg PO BID [facility] Stop: 12/12/17 16:59 Last Admin: 10/14/17 18:23 Dose: 25 mg Miscellaneous (Clinical Monitoring) 1 ea MC PRN PRN PRN Reason: RENAL Stop: 12/12/17 10:33 Olanzapine (Zyprexa Zydis) 5 mg PO BID [facility] PRN Reason: Protocol Stop: 12/13/17 16:59 Zolpidem Tartrate (Ambien) 5 mg PO HS PRN PRN Reason: insomnia Stop: 12/11/17 19:27 General: Alert, Oriented x3 HEENT: Atraumatic, PERRLA Neck: Supple Cardiovascular: Regular rate, Normal S1, Normal S2 Lungs: Clear to auscultation Abdomen: Bowel sounds, Soft Extremities: no Clubbing, no Cyanosis, no Edema Neurological: Sensation intact Skin: Rash Psych/Mental Status: Mood NL - Procedures Procedures: Procedures Procedure Code Date JEWEL MUSC/FASCIA 20 SQ CM/< 11834 10/12/17 EXCISION OF RIGHT HIP MUSCLE, OPEN APPROACH [id number] 10/12/17 Assessment/Plan - Assessment Assessment: KEN on CKD Stage 4 decub ulcer Severe dehydration Ess HTN Type 2 DM Psychosis - Plan Plan: Lab - Result Diagrams 10/14/17 06:00 10/14/17 06:00 Current Medications Acetaminophen (Tylenol) 650 mg PO Q6HR PRN PRN Reason: mild to moderate pain Stop: 12/11/17 19:27 Allopurinol (Zyloprim) 100 mg PO DAILY [facility] Stop: 12/12/17 08:59 Last Admin: 10/14/17 10:00 Dose: Not Given [place] Oil/[place] Balsam/Trypsin (Venelex) 1 appl TP DAILY [facility] Stop: 12/12/17 15:59 Last Admin: 10/14/17 10:00 Dose: 1 appl Famotidine (Pepcid) 20 mg PO BID [facility] Stop: 12/12/17 08:59 Last Admin: 10/14/17 18:22 Dose: 20 mg Heparin Sodium (Porcine) (Heparin) 5,000 units SUBQ Q12HR [facility] PRN Reason: Protocol Stop: 12/11/17 20:59 Last Admin: 10/14/17 07:50 Dose: Not Given Ceftriaxone Sodium 1 gm/ (Sodium Chloride) 50 mls @ 100 mls/hr IV Q24HR [facility] Stop: 12/11/17 16:44 Last Admin: 10/14/17 17:45 Dose: 100 mls/hr Insulin Aspart (Novolog Insulin Sliding Scale) 0 units SUBQ ACHS [facility] PRN Reason: Protocol Stop: 12/11/17 20:59 Last Admin: 10/14/17 18:23 Dose: 6 units Lorazepam (Ativan) 0.5 mg PO Q6HR PRN; Protocol PRN Reason: agitation Stop: 12/11/17 19:27 Magnesium Hydroxide (Milk Of Magnesia) 30 ml PO HS PRN PRN Reason: Constipation Stop: 12/11/17 19:27 Metoprolol Succinate (Toprol Xl) 25 mg PO BID [facility] Stop: 12/12/17 16:59 Last Admin: 10/14/17 18:23 Dose: 25 mg Miscellaneous (Clinical Monitoring) 1 ea MC PRN PRN PRN Reason: RENAL Stop: 12/12/17 10:33 Olanzapine (Zyprexa Zydis) 5 mg PO BID [facility] PRN Reason: Protocol Stop: 12/13/17 16:59 Zolpidem Tartrate (Ambien) 5 mg PO HS PRN PRN Reason: insomnia Stop: 12/11/17 19:27 Lab - Result Diagrams 10/14/17 06:00 10/14/17 06:00 Na down to 152 Kidney fnc gradually improving agree w/ Allopurinol f/u electrolytes continue hydration Nutritional Asmnt/Malnutr-PDOC - Dietary Evaluation Malnutrition Findings (Please click <Entered> for more info): Nutritional Asmnt/Malnutrition Start: 10/14/17 17: 10 Text: Status: Complete Freq: Document 10/14/17 17:13 GREY (Rec: 10/14/17 17:25 GREY [email or web address]) Nutritional Asmnt/Malnutrition Patient General Information Nutritional Screening High Risk Consult Diagnosis pressure ulcer, hyperglycemia, dehydration Pertinent Medical Hx/Surgical Hx DM, dementia, depression, psychosis, schizophrenia, chronic renal insuff Subjective Information Consult received for unstageble pressure ulcer on , high BG on 10/12. Per records, PO intake 50-75%. Pt was on NPO today for surgery- excisional debridement, application of wound VAC Current Diet Order/ Nutrition Support pureed, CCHO 60gm Pertinent Medications novolog Pertinent Labs 10/14 Na 152, K 4.6, BUN 56, Cr 1.8, Glucose 262, POC 236-246 , Mg 2.9 Nutritional Hx/Data Height 1.8 m Height (Calculated Centimeters) 180.3 Current Weight (lbs) 70.76 kg Weight (Calculated Kilograms) 70.8 Weight (Calculated Grams) 44387.4 [place] Body Weight 172 % [place] Body Weight 91 Body Mass Index (BMI) 21.7 Weight Status Approriate GI Symptoms GI Symptoms None Last BM 10/13 Difficult in: None Skin Integrity/Comment: scar to right upper back, decubitus ulcer to buttocks Current %PO Fair (50-74%) Estimated Nutritional Goals BEE in Kcals: Using Current wt Calories/Kcals/Kg 27-32 Kcals Calculated 6482-0562 Protein: Using Current wt Protein g/k-1.2 Protein Calculated 71-85 Fluid: ml 1917-2130ml (1ml/kcal) Nutritional Problem 2. Problem Problem altered nutrition related lab values Etiology hx of DM Signs/Symptoms: Glucose 262, POC 236-246 1. Problem Problem increased nutrition needs ( calorie and protein) Etiology increased metabolic demand for wound healing Signs/Symptoms: decubitus ulcer and surgery Intervention/Recommendation Comments 1. Continue with current diet as ordered. If PO intake low, will consider nutrition supplements 2. MD to consider vit C and zinc for wound healing 3. Monitor PO intake, wt, labs and skin integrity 4. F/U as moderate risk in 3-5 days, 3/2-3/4, PO check 10/17 Expected Outcomes/Goals Expected Outcomes/Goals 1. PO intake to meet at least 75% of nutritional needs. 2. Wt stability, skin to remain intact, labs to approach WNL.
[2017-10-14 20:40] LABS: A1C % 10.5 % (4.0-6.0)
--- NOTE | 2017-10-14 21:40 | Progress Notes ---
DATE: 10/14/[address] Rainey. SUBJECTIVE: Case was discussed with staff of the patient and reviewed records. The patient has been having episodes of kicking. He continues to be unpredictable, impulsive, needing redirection, labile. He is sleeping well, eating well. No side effects with the medication, no sedation, no nausea, no extrapyramidal symptoms. He is compliant with the medication with no side effects, no sedation, no nausea, and no extrapyramidal symptoms. The patient is on Zyprexa 5 mg daily, I will be increasing the dose to 5 mg twice a day and so far no side effects, no sedation, no nausea, no extrapyramidal symptoms and we will continue to work with the patient in group therapy, milieu therapy, adjust medication as needed. Thank you very much for allowing me to participate in the care of this most interesting gentleman. JOB# [id number]
[2017-10-15 04:56] LABS: URINE MICROSCOPIC INDICATED? YES
[2017-10-15 05:17] LABS: URINE BILIRUBIN SMALL (NEGATIVE); URINE BLOOD LARGE (NEGATIVE); URINE GLUCOSE (UA) >=1000 mg/dL (NEGATIVE); URINE KETONE TRACE mg/dL (NEGATIVE); URINE LEUKOCYTE ESTERASE TRACE (NEGATIVE); URINE NITRATE NEGATIVE (NEGATIVE); URINE PH 5.5 (4.6 - 8.0); URINE PROTEIN 100 mg/dL (NEGATIVE); URINE UROBILINOGEN 0.2 E.U./dL (0.2 - 1.0)
[2017-10-15 05:43] LABS: URINE CLARITY CLOUDY (CLEAR); URINE COLOR BROWN
[2017-10-15 05:44] LABS: URINE BACTERIA MODERATE /hpf (NONE SEEN); URINE EPITHELIAL CELLS OCCASIONAL /lpf (FEW); URINE ICTOTEST NEGATIVE (NEGATIVE); URINE RBC >100 /hpf (0-5); URINE SOURCE CATH; URINE WBC >100 /hpf (0-5)
--- NOTE | 2017-10-15 05:57 | General Progress Note ---
Subjective - Review of Systems Service Date: 10/15/17 Subjective: Patient was seen and examined. Oral Intake has improved. Appears more awake and alert today. more awake, more alert. s/p wound debridement of sacral decubitus ulcer. UA+. Objective - Results Result Diagrams: 10/15/17 06:15 10/15/17 06:15 Recent Labs: Laboratory Last Values WBC 8.0 Th/cmm (4.8-10.8) 10/14/17 06:00 RBC 5.33 Mil/cmm (3.80-5.80) 10/14/17 06:00 Hgb 15.6 gm/dL (12-16) 10/14/17 06:00 Hct 47.8 % (41.0-60) 10/14/17 06:00 MCV 89.6 fl (80-99) 10/14/17 06:00 MCH 29.3 pg (27.0-31.0) 10/14/17 06:00 MCHC Differential 32.7 pg (28.0-36.0) 10/14/17 06:00 RDW 17.2 % (11.5-20.0) 10/14/17 06:00 Plt Count 198 Th/cmm (150-400) 10/14/17 06:00 MPV 9.7 fl 10/14/17 06:00 Neutrophils % 67.6 % (40.0-80.0) 10/14/17 06:00 Lymphocytes % 25.3 % (20.0-50.0) 10/14/17 06:00 Monocytes % 5.4 % (2.0-10.0) 10/14/17 06:00 Eosinophils % 1.6 % (0.0-5.0) 10/14/17 06:00 Basophils % 0.1 % (0.0-2.0) 10/14/17 06:00 PT 10.5 SECONDS (9.5-11.5) 10/14/17 06:00 INR 1.01 (0.5-1.4) 10/14/17 06:00 PTT (Actin FS) 25.3 SECONDS (26.0-38.0) L 10/14/17 06:00 Sodium 152 mEq/L (136-145) H 10/14/17 06:00 Potassium 4.6 mEq/L (3.5-5.1) 10/14/17 06:00 Chloride 117 mEq/L (98-107) H 10/14/17 06:00 Carbon Dioxide 25.8 mEq/L (21.0-31.0) 10/14/17 06:00 Anion Gap 13.8 (7.0-16.0) 10/14/17 06:00 BUN 56 mg/dL (7-25) H 10/14/17 06:00 Creatinine 1.8 mg/dL (0.7-1.3) H 10/14/17 06:00 Est GFR ( Amer) TNP 10/14/17 06:00 Est GFR (Non-Af Amer) TNP 10/14/17 06:00 BUN/Creatinine Ratio 31.1 10/14/17 06:00 Glucose 262 mg/dL (70-105) H 10/14/17 06:00 POC Glucose 293 MG/DL (70 - 105) H 10/14/17 20:16 Hemoglobin A1c % 10.5 % (4.0-6.0) H 10/14/17 05:26 Uric Acid 11.9 mg/dL (4.4-7.6) H 10/14/17 06:00 Calcium 9.9 mg/dL (8.6-10.3) 10/14/17 06:00 Phosphorus 4.1 mg/dL (2.5-5.0) 10/14/17 06:00 Magnesium 2.9 mg/dL (1.9-2.7) H 10/14/17 06:00 Total Bilirubin 0.9 mg/dL (0.3-1.0) 10/14/17 06:00 AST 15 U/L (13-39) 10/14/17 06:00 ALT 17 U/L (7-52) 10/14/17 06:00 Alkaline Phosphatase 84 U/L (34-104) 10/14/17 06:00 Total Protein 7.7 gm/dL (6.0-8.3) 10/14/17 06:00 Albumin 3.7 gm/dL (4.2-5.5) L 10/14/17 06:00 Globulin 4.0 gm/dL 10/14/17 06:00 Albumin/Globulin Ratio 0.9 (1.0-1.8) L 10/14/17 06:00 TSH 0.28 uIU/ml (0.34-5.60) L 10/14/17 06:00 Urine Source CATH 10/15/17 03:00 Urine Color BROWN 10/15/17 03:00 Urine Clarity CLOUDY (CLEAR) 10/15/17 03:00 Urine pH 5.5 (4.6 - 8.0) 10/15/17 03:00 Ur Specific [place] 1.020 (1.005-1.030) 10/15/17 03:00 Urine Protein 100 mg/dL (NEGATIVE) H 10/15/17 03:00 Urine Glucose (UA) >=1000 mg/dL (NEGATIVE) H 10/15/17 03:00 Urine Ketones TRACE mg/dL (NEGATIVE) 10/15/17 03:00 Urine Blood LARGE (NEGATIVE) H 10/15/17 03:00 Urine Nitrate NEGATIVE (NEGATIVE) 10/15/17 03:00 Urine Bilirubin SMALL (NEGATIVE) H 10/15/17 03:00 Urine Ictotest NEGATIVE (NEGATIVE) 10/15/17 03:00 Urine Urobilinogen 0.2 E.U./dL (0.2 - 1.0) 10/15/17 03:00 Ur Leukocyte Esterase TRACE (NEGATIVE) H 10/15/17 03:00 Urine RBC >100 /hpf (0-5) H 10/15/17 03:00 Urine WBC >100 /hpf (0-5) H 10/15/17 03:00 Ur Epithelial Cells OCCASIONAL /lpf (FEW) 10/15/17 03:00 Urine Bacteria MODERATE /hpf (NONE SEEN) H 10/15/17 03:00 - Physical Exam Vitals and I&O: Vital Signs Temp 98.2 F 10/15/17 04:00 Pulse 93 10/15/17 04:00 Resp 18 10/15/17 04:00 BP 130/83 10/15/17 04:00 Pulse Ox 99 10/15/17 04:00 Intake & Output 10/14/17 10/14/17 10/15/17 06:59 18:59 06:59 Intake Total 720 150 Output Total 0 0 Balance 720 150 Weight (lbs) 70.76 kg 70.76 kg 70.76 kg Intake: Intake, IV Amount 50 cefTRIAXone 1 gm In 50 Sodium Chloride 0.9% 50 ml @ 100 mls/hr IV Q24HR [facility] Rx#:[id number] Oral 720 100 Output: Stool 0 0 Other: # Voids 4 4 1 # Bowel Movements 0 0 0 Active Medications: Current Medications Acetaminophen (Tylenol) 650 mg PO Q6HR PRN PRN Reason: mild to moderate pain Stop: 12/11/17 19:27 Last Admin: 10/14/17 22:43 Dose: 650 mg Allopurinol (Zyloprim) 100 mg PO DAILY [facility] Stop: 12/12/17 08:59 Last Admin: 10/14/17 10:00 Dose: Not Given [place] Oil/[place] Balsam/Trypsin (Venelex) 1 appl TP DAILY [facility] Stop: 12/12/17 15:59 Last Admin: 10/14/17 10:00 Dose: 1 appl Famotidine (Pepcid) 20 mg PO BID [facility] Stop: 12/12/17 08:59 Last Admin: 10/14/17 18:22 Dose: 20 mg Heparin Sodium (Porcine) (Heparin) 5,000 units SUBQ Q12HR [facility] PRN Reason: Protocol Stop: 12/11/17 20:59 Last Admin: 10/14/17 20:37 Dose: 5,000 units Insulin Aspart (Novolog Insulin Sliding Scale) 0 units SUBQ ACHS [facility] PRN Reason: Protocol Stop: 12/11/17 20:59 Last Admin: 10/14/17 20:38 Dose: 6 units Lorazepam (Ativan) 0.5 mg PO Q6HR PRN; Protocol PRN Reason: agitation Stop: 12/11/17 19:27 Magnesium Hydroxide (Milk Of Magnesia) 30 ml PO HS PRN PRN Reason: Constipation Stop: 12/11/17 19:27 Metoprolol Succinate (Toprol Xl) 25 mg PO BID [facility] Stop: 12/12/17 16:59 Last Admin: 10/14/17 18:23 Dose: 25 mg Miscellaneous (Clinical Monitoring) 1 ea MC PRN PRN PRN Reason: RENAL Stop: 12/12/17 10:33 Olanzapine (Zyprexa Zydis) 5 mg PO BID [facility] PRN Reason: Protocol Stop: 12/13/17 16:59 Zolpidem Tartrate (Ambien) 5 mg PO HS PRN PRN Reason: insomnia Stop: 12/11/17 19:27 Last Admin: 10/15/17 00:10 Dose: 5 mg General: Alert, Oriented x3 HEENT: Atraumatic, PERRLA Neck: Supple Cardiovascular: Regular rate, Normal S1, Normal S2 Lungs: Clear to auscultation Abdomen: Bowel sounds, Soft Extremities: no Clubbing, no Cyanosis, no Edema Neurological: Sensation intact Skin: Rash Psych/Mental Status: Mood NL - Procedures Procedures: Procedures Procedure Code Date JEWEL MUSC/FASCIA 20 SQ CM/< 96002 10/12/17 EXCISION OF RIGHT HIP MUSCLE, OPEN APPROACH [id number] 10/12/17 Assessment/Plan - Assessment Assessment: hypernatremia prerenal azotemia hyperglycemia depression/anxiety gout dementia schizophrenia S/P wound debridement of sacral decubitus UTI discharge planning tomorrow. - Plan Plan: will order repeat cmp,cbc tomorrow AM renal consult -- Dr. Sharp sacral decubitus ... will order Gen Surgical consult -- Dr. Greene for possible wound debridement Gout ... continue allopurinol 100mg PO daily Nutritional Asmnt/Malnutr-PDOC - Dietary Evaluation Malnutrition Findings (Please click <Entered> for more info): Nutritional Asmnt/Malnutrition Start: 10/14/17 17: 10 Text: Status: Complete Freq: Document 10/14/17 17:13 [email or web address] (Rec: 10/14/17 17:25 [email or web address]) Nutritional Asmnt/Malnutrition Patient General Information Nutritional Screening High Risk Consult Diagnosis pressure ulcer, hyperglycemia, dehydration Pertinent Medical Hx/Surgical Hx DM, dementia, depression, psychosis, schizophrenia, chronic renal insuff Subjective Information Consult received for unstageble pressure ulcer on , high BG on 10/12. Per records, PO intake 50-75%. Pt was on NPO today for surgery- excisional debridement, application of wound VAC Current Diet Order/ Nutrition Support pureed, CCHO 60gm Pertinent Medications novolog Pertinent Labs 10/14 Na 152, K 4.6, BUN 56, Cr 1.8, Glucose 262, POC 236-246 , Mg 2.9 Nutritional Hx/Data Height 1.8 m Height (Calculated Centimeters) 180.3 Current Weight (lbs) 70.76 kg Weight (Calculated Kilograms) 70.8 Weight (Calculated Grams) 50609.4 [place] Body Weight 172 % [place] Body Weight 91 Body Mass Index (BMI) 21.7 Weight Status Approriate GI Symptoms GI Symptoms None Last BM 10/13 Difficult in: None Skin Integrity/Comment: scar to right upper back, decubitus ulcer to buttocks Current %PO Fair (50-74%) Estimated Nutritional Goals BEE in Kcals: Using Current wt Calories/Kcals/Kg 27-32 Kcals Calculated 5310-6670 Protein: Using Current wt Protein g/k-1.2 Protein Calculated 71-85 Fluid: ml 1916-2129ml (1ml/kcal) Nutritional Problem 2. Problem Problem altered nutrition related lab values Etiology hx of DM Signs/Symptoms: Glucose 262, POC 236-246 1. Problem Problem increased nutrition needs ( calorie and protein) Etiology increased metabolic demand for wound healing Signs/Symptoms: decubitus ulcer and surgery Intervention/Recommendation Comments 1. Continue with current diet as ordered. If PO intake low, will consider nutrition supplements 2. MD to consider vit C and zinc for wound healing 3. Monitor PO intake, wt, labs and skin integrity 4. F/U as moderate risk in 3-5 days, 3/2-3/4, PO check 3/2 Expected Outcomes/Goals Expected Outcomes/Goals 1. PO intake to meet at least 75% of nutritional needs. 2. Wt stability, skin to remain intact, labs to approach WNL.
[2017-10-15 07:13] LABS: % BASOPHILS 0.3 % (0.0-2.0); % EOSINOPHILS 1.7 % (0.0-5.0); % LYMPHOCYTES 14.8 % (20.0-50.0); % MONOCYTES 4.8 % (2.0-10.0); % NEUTROPHILS 78.4 % (40.0-80.0); EOSINOPHILE ABSOLUTE 0.1 Th/cmm (0.1-0.4); HEMATOCRIT 45.1 % (41.0-60); HEMOGLOBIN 14.6 gm/dL (12-16); LYMPHOCYTE ABSOLUTE 1.2 Th/cmm (1.5-3.0); MEAN CELL VOLUME 89.7 fl (80-99); MEAN CORPUSCULAR HGB CONC 32.3 pg (28.0-36.0); MEAN PLATELET VOLUME 10.1 fl; MONOCYTE ABSOLUTE 0.4 Th/cmm (0.3-1.0); NEUTROPHILE ABSOLUTE 6.7 Th/cmm (1.8-8.0); PLATELET COUNT 192 Th/cmm (150-400); RED BLOOD COUNT 5.03 Mil/cmm (3.80-5.80); WHITE BLOOD COUNT 8.4 Th/cmm (4.8-10.8)
[2017-10-15 07:27] LABS: ANION GAP 13.6 (7.0-16.0); BUN - UREA NITROGEN 41 mg/dL (7-25); CALCIUM SERUM 9.3 mg/dL (8.6-10.3); CARBON DIOXIDE 25.4 mEq/L (21.0-31.0); CHLORIDE 115 mEq/L (98-107); CREATININE - SERUM 1.4 mg/dL (0.7-1.3); GLUCOSE 203 mg/dL (70-105); SODIUM SERUM 150 mEq/L (136-145)
[2017-10-15] MEDS: Insulin Detemir 100 units/mL 10mL Vial SUBQ SCH (08:12)
[2017-10-15] MEDS: INSULIN ASPART SLIDING SCALE 100 UNITS/ML UNIT SUBQ SCH ×4 (08:14→20:47)
[2017-10-15] MEDS: Venelex 60gm Tube TP SCH (09:09)
[2017-10-15 10:43] LABS: EOSINOPHIL SMEAR SOURCE URINE; EOSINOPHILS SMEAR COUNT FEW EOSINOPHILS SEEN (NONE SEEN)
--- NOTE | 2017-10-15 11:57 | General Progress Note ---
Subjective - Review of Systems Service Date: 10/15/17 Events since last encounter: labs noted may DC and continue wound vac Objective - Results Result Diagrams: 10/15/17 06:15 10/15/17 06:15 Recent Labs: Laboratory Last Values WBC 8.4 Th/cmm (4.8-10.8) 10/15/17 06:15 RBC 5.03 Mil/cmm (3.80-5.80) 10/15/17 06:15 Hgb 14.6 gm/dL (12-16) 10/15/17 06:15 Hct 45.1 % (41.0-60) 10/15/17 06:15 MCV 89.7 fl (80-99) 10/15/17 06:15 MCH 29.0 pg (27.0-31.0) 10/15/17 06:15 MCHC Differential 32.3 pg (28.0-36.0) 10/15/17 06:15 RDW 16.0 % (11.5-20.0) 10/15/17 06:15 Plt Count 192 Th/cmm (150-400) 10/15/17 06:15 MPV 10.1 fl 10/15/17 06:15 Neutrophils % 78.4 % (40.0-80.0) 10/15/17 06:15 Lymphocytes % 14.8 % (20.0-50.0) L 10/15/17 06:15 Monocytes % 4.8 % (2.0-10.0) 10/15/17 06:15 Eosinophils % 1.7 % (0.0-5.0) 10/15/17 06:15 Basophils % 0.3 % (0.0-2.0) 10/15/17 06:15 Eos Smear Source URINE 10/15/17 03:00 Eos Smear Total Cells FEW EOSINOPHILS SEEN (NONE SEEN) 10/15/17 03:00 PT 10.5 SECONDS (9.5-11.5) 10/14/17 06:00 INR 1.01 (0.5-1.4) 10/14/17 06:00 PTT (Actin FS) 25.3 SECONDS (26.0-38.0) L 10/14/17 06:00 Sodium 150 mEq/L (136-145) H 10/15/17 06:15 Potassium 4.0 mEq/L (3.5-5.1) 10/15/17 06:15 Chloride 115 mEq/L (98-107) H 10/15/17 06:15 Carbon Dioxide 25.4 mEq/L (21.0-31.0) 10/15/17 06:15 Anion Gap 13.6 (7.0-16.0) 10/15/17 06:15 BUN 41 mg/dL (7-25) H 10/15/17 06:15 Creatinine 1.4 mg/dL (0.7-1.3) H 10/15/17 06:15 Est GFR ( Amer) TNP 10/15/17 06:15 Est GFR (Non-Af Amer) TNP 10/15/17 06:15 BUN/Creatinine Ratio 29.3 10/15/17 06:15 Glucose 203 mg/dL (70-105) H 10/15/17 06:15 POC Glucose 203 MG/DL (70 - 105) H 10/15/17 06:17 Hemoglobin A1c % 10.5 % (4.0-6.0) H 10/14/17 05:26 Uric Acid 11.9 mg/dL (4.4-7.6) H 10/14/17 06:00 Calcium 9.3 mg/dL (8.6-10.3) 10/15/17 06:15 Phosphorus 4.1 mg/dL (2.5-5.0) 10/14/17 06:00 Magnesium 2.9 mg/dL (1.9-2.7) H 10/14/17 06:00 Total Bilirubin 0.9 mg/dL (0.3-1.0) 10/14/17 06:00 AST 15 U/L (13-39) 10/14/17 06:00 ALT 17 U/L (7-52) 10/14/17 06:00 Alkaline Phosphatase 84 U/L (34-104) 10/14/17 06:00 Total Protein 7.7 gm/dL (6.0-8.3) 10/14/17 06:00 Albumin 3.7 gm/dL (4.2-5.5) L 10/14/17 06:00 Globulin 4.0 gm/dL 10/14/17 06:00 Albumin/Globulin Ratio 0.9 (1.0-1.8) L 10/14/17 06:00 TSH 0.28 uIU/ml (0.34-5.60) L 10/14/17 06:00 Urine Source CATH 10/15/17 03:00 Urine Color BROWN 10/15/17 03:00 Urine Clarity CLOUDY (CLEAR) 10/15/17 03:00 Urine pH 5.5 (4.6 - 8.0) 10/15/17 03:00 Ur Specific [place] 1.020 (1.005-1.030) 10/15/17 03:00 Urine Protein 100 mg/dL (NEGATIVE) H 10/15/17 03:00 Urine Glucose (UA) >=1000 mg/dL (NEGATIVE) H 10/15/17 03:00 Urine Ketones TRACE mg/dL (NEGATIVE) 10/15/17 03:00 Urine Blood LARGE (NEGATIVE) H 10/15/17 03:00 Urine Nitrate NEGATIVE (NEGATIVE) 10/15/17 03:00 Urine Bilirubin SMALL (NEGATIVE) H 10/15/17 03:00 Urine Ictotest NEGATIVE (NEGATIVE) 10/15/17 03:00 Urine Urobilinogen 0.2 E.U./dL (0.2 - 1.0) 10/15/17 03:00 Ur Leukocyte Esterase TRACE (NEGATIVE) H 10/15/17 03:00 Urine RBC >100 /hpf (0-5) H 10/15/17 03:00 Urine WBC >100 /hpf (0-5) H 10/15/17 03:00 Ur Epithelial Cells OCCASIONAL /lpf (FEW) 10/15/17 03:00 Urine Bacteria MODERATE /hpf (NONE SEEN) H 10/15/17 03:00 Ur Random Sodium 39 mmol/L 10/15/17 03:00 Urine Creatinine 136.0 mg/dl (39.0-259.0) 10/15/17 03:00 - Physical Exam Vitals and I&O: Vital Signs Temp 98.2 F 10/15/17 04:00 Pulse 86 10/15/17 09:06 Resp 18 10/15/17 04:00 BP 163/96 10/15/17 09:06 Pulse Ox 99 10/15/17 04:00 Intake & Output 10/14/17 10/15/17 10/15/17 18:59 06:59 18:59 Intake Total 720 150 480 Output Total 0 0 300 Balance 720 150 180 Weight (lbs) 70.76 kg 70.76 kg 78.018 kg Intake: Intake, IV Amount 50 cefTRIAXone 1 gm In 50 Sodium Chloride 0.9% 50 ml @ 100 mls/hr IV Q24HR [facility] Rx#:[id number] Oral 720 100 480 Output: Urine 300 Stool 0 0 Other: # Voids 4 1 3 # Bowel Movements 0 0 1 Active Medications: Current Medications Acetaminophen (Tylenol) 650 mg PO Q6HR PRN PRN Reason: mild to moderate pain Stop: 12/11/17 19:27 Last Admin: 10/14/17 22:43 Dose: 650 mg Allopurinol (Zyloprim) 100 mg PO DAILY [facility] Stop: 12/12/17 08:59 Last Admin: 10/15/17 09:06 Dose: 100 mg [place] Oil/[place] Balsam/Trypsin (Venelex) 1 appl TP DAILY [facility] Stop: 12/12/17 15:59 Last Admin: 10/15/17 09:09 Dose: 1 appl Famotidine (Pepcid) 20 mg PO BID [facility] Stop: 12/12/17 08:59 Last Admin: 10/15/17 09:08 Dose: 20 mg Heparin Sodium (Porcine) (Heparin) 5,000 units SUBQ Q12HR [facility] PRN Reason: Protocol Stop: 12/11/17 20:59 Last Admin: 10/15/17 09:09 Dose: 5,000 units Levofloxacin (Levaquin Pb) 500 mg in 100 mls @ 100 mls/hr IV Q24HR [facility] Stop: 12/14/17 05:59 Insulin Aspart (Novolog Insulin Sliding Scale) 0 units SUBQ ACHS [facility] PRN Reason: Protocol Stop: 12/11/17 20:59 Last Admin: 10/15/17 08:14 Dose: 4 units Insulin Detemir (Levemir Insulin) 10 units SUBQ DAILY [facility] PRN Reason: Protocol Stop: 12/14/17 08:59 Last Admin: 10/15/17 08:12 Dose: 10 units Lorazepam (Ativan) 0.5 mg PO Q6HR PRN; Protocol PRN Reason: agitation Stop: 12/11/17 19:27 Magnesium Hydroxide (Milk Of Magnesia) 30 ml PO HS PRN PRN Reason: Constipation Stop: 12/11/17 19:27 Metoprolol Succinate (Toprol Xl) 25 mg PO BID [facility] Stop: 12/12/17 16:59 Last Admin: 10/15/17 09:06 Dose: 25 mg Miscellaneous (Clinical Monitoring) 1 ea MC PRN PRN PRN Reason: RENAL Stop: 12/12/17 10:33 Olanzapine (Zyprexa Zydis) 5 mg PO BID [facility] PRN Reason: Protocol Stop: 12/13/17 16:59 Zolpidem Tartrate (Ambien) 5 mg PO HS PRN PRN Reason: insomnia Stop: 12/11/17 19:27 Last Admin: 10/15/17 00:10 Dose: 5 mg General: Alert, Oriented x3 HEENT: Atraumatic, PERRLA Neck: Supple Cardiovascular: Regular rate, Normal S1, Normal S2 Lungs: Clear to auscultation Abdomen: Bowel sounds, Soft Extremities: no Clubbing, no Cyanosis, no Edema Neurological: Sensation intact Skin: Rash Psych/Mental Status: Mood NL - Procedures Procedures: Procedures Procedure Code Date JEWEL MUSC/FASCIA 20 SQ CM/< 18961 10/12/17 EXCISION OF RIGHT HIP MUSCLE, OPEN APPROACH [id number] 10/12/17 Nutritional Asmnt/Malnutr-PDOC - Dietary Evaluation Malnutrition Findings (Please click <Entered> for more info): Nutritional Asmnt/Malnutrition Start: 10/14/17 17: 10 Text: Status: Complete Freq: Document 10/14/17 17:13 LCHENG (Rec: 10/14/17 17:25 HENG [email or web address]) Nutritional Asmnt/Malnutrition Patient General Information Nutritional Screening High Risk Consult Diagnosis pressure ulcer, hyperglycemia, dehydration Pertinent Medical Hx/Surgical Hx DM, dementia, depression, psychosis, schizophrenia, chronic renal insuff Subjective Information Consult received for unstageble pressure ulcer on , high BG on 10/12. Per records, PO intake 50-75%. Pt was on NPO today for surgery- excisional debridement, application of wound VAC Current Diet Order/ Nutrition Support pureed, CCHO 60gm Pertinent Medications novolog Pertinent Labs 10/14 Na 152, K 4.6, BUN 56, Cr 1.8, Glucose 262, POC 236-246 , Mg 2.9 Nutritional Hx/Data Height 1.8 m Height (Calculated Centimeters) 180.3 Current Weight (lbs) 70.76 kg Weight (Calculated Kilograms) 70.8 Weight (Calculated Grams) 28987.4 [place] Body Weight 172 % [place] Body Weight 91 Body Mass Index (BMI) 21.7 Weight Status Approriate GI Symptoms GI Symptoms None Last BM 10/13 Difficult in: None Skin Integrity/Comment: scar to right upper back, decubitus ulcer to buttocks Current %PO Fair (50-74%) Estimated Nutritional Goals BEE in Kcals: Using Current wt Calories/Kcals/Kg 27-32 Kcals Calculated 7985-8648 Protein: Using Current wt Protein g/k-1.2 Protein Calculated 71-85 Fluid: ml 1916-2129ml (1ml/kcal) Nutritional Problem 2. Problem Problem altered nutrition related lab values Etiology hx of DM Signs/Symptoms: Glucose 262, POC 236-246 1. Problem Problem increased nutrition needs ( calorie and protein) Etiology increased metabolic demand for wound healing Signs/Symptoms: decubitus ulcer and surgery Intervention/Recommendation Comments 1. Continue with current diet as ordered. If PO intake low, will consider nutrition supplements 2. MD to consider vit C and zinc for wound healing 3. Monitor PO intake, wt, labs and skin integrity 4. F/U as moderate risk in 3-5 days, 3/2-3/4, PO check 3/2 Expected Outcomes/Goals Expected Outcomes/Goals 1. PO intake to meet at least 75% of nutritional needs. 2. Wt stability, skin to remain intact, labs to approach WNL.
[2017-10-15] MEDS: Levofloxacin 500mg/100mL 500 MG/100 ML BAG IV SCH (12:46)
--- NOTE | 2017-10-15 13:11 | Infectious Disease Prog Note ---
Infectious Disease Subjective - Review of Systems Service Date: 10/15/17 Subjective: no new change. Infectious Disease Objective - Results Result Diagrams: 10/15/17 06:15 10/15/17 06:15 Recent Labs: Laboratory Last Values WBC 8.4 Th/cmm (4.8-10.8) 10/15/17 06:15 RBC 5.03 Mil/cmm (3.80-5.80) 10/15/17 06:15 Hgb 14.6 gm/dL (12-16) 10/15/17 06:15 Hct 45.1 % (41.0-60) 10/15/17 06:15 MCV 89.7 fl (80-99) 10/15/17 06:15 MCH 29.0 pg (27.0-31.0) 10/15/17 06:15 MCHC Differential 32.3 pg (28.0-36.0) 10/15/17 06:15 RDW 16.0 % (11.5-20.0) 10/15/17 06:15 Plt Count 192 Th/cmm (150-400) 10/15/17 06:15 MPV 10.1 fl 10/15/17 06:15 Neutrophils % 78.4 % (40.0-80.0) 10/15/17 06:15 Lymphocytes % 14.8 % (20.0-50.0) L 10/15/17 06:15 Monocytes % 4.8 % (2.0-10.0) 10/15/17 06:15 Eosinophils % 1.7 % (0.0-5.0) 10/15/17 06:15 Basophils % 0.3 % (0.0-2.0) 10/15/17 06:15 Eos Smear Source URINE 10/15/17 03:00 Eos Smear Total Cells FEW EOSINOPHILS SEEN (NONE SEEN) 10/15/17 03:00 PT 10.5 SECONDS (9.5-11.5) 10/14/17 06:00 INR 1.01 (0.5-1.4) 10/14/17 06:00 PTT (Actin FS) 25.3 SECONDS (26.0-38.0) L 10/14/17 06:00 Sodium 150 mEq/L (136-145) H 10/15/17 06:15 Potassium 4.0 mEq/L (3.5-5.1) 10/15/17 06:15 Chloride 115 mEq/L (98-107) H 10/15/17 06:15 Carbon Dioxide 25.4 mEq/L (21.0-31.0) 10/15/17 06:15 Anion Gap 13.6 (7.0-16.0) 10/15/17 06:15 BUN 41 mg/dL (7-25) H 10/15/17 06:15 Creatinine 1.4 mg/dL (0.7-1.3) H 10/15/17 06:15 Est GFR ( Amer) TNP 10/15/17 06:15 Est GFR (Non-Af Amer) TNP 10/15/17 06:15 BUN/Creatinine Ratio 29.3 10/15/17 06:15 Glucose 203 mg/dL (70-105) H 10/15/17 06:15 POC Glucose 260 MG/DL (70 - 105) H 10/15/17 12:01 Hemoglobin A1c % 10.5 % (4.0-6.0) H 10/14/17 05:26 Uric Acid 11.9 mg/dL (4.4-7.6) H 10/14/17 06:00 Calcium 9.3 mg/dL (8.6-10.3) 10/15/17 06:15 Phosphorus 4.1 mg/dL (2.5-5.0) 10/14/17 06:00 Magnesium 2.9 mg/dL (1.9-2.7) H 10/14/17 06:00 Total Bilirubin 0.9 mg/dL (0.3-1.0) 10/14/17 06:00 AST 15 U/L (13-39) 10/14/17 06:00 ALT 17 U/L (7-52) 10/14/17 06:00 Alkaline Phosphatase 84 U/L (34-104) 10/14/17 06:00 Total Protein 7.7 gm/dL (6.0-8.3) 10/14/17 06:00 Albumin 3.7 gm/dL (4.2-5.5) L 10/14/17 06:00 Globulin 4.0 gm/dL 10/14/17 06:00 Albumin/Globulin Ratio 0.9 (1.0-1.8) L 10/14/17 06:00 TSH 0.28 uIU/ml (0.34-5.60) L 10/14/17 06:00 Urine Source CATH 10/15/17 03:00 Urine Color BROWN 10/15/17 03:00 Urine Clarity CLOUDY (CLEAR) 10/15/17 03:00 Urine pH 5.5 (4.6 - 8.0) 10/15/17 03:00 Ur Specific [place] 1.020 (1.005-1.030) 10/15/17 03:00 Urine Protein 100 mg/dL (NEGATIVE) H 10/15/17 03:00 Urine Glucose (UA) >=1000 mg/dL (NEGATIVE) H 10/15/17 03:00 Urine Ketones TRACE mg/dL (NEGATIVE) 10/15/17 03:00 Urine Blood LARGE (NEGATIVE) H 10/15/17 03:00 Urine Nitrate NEGATIVE (NEGATIVE) 10/15/17 03:00 Urine Bilirubin SMALL (NEGATIVE) H 10/15/17 03:00 Urine Ictotest NEGATIVE (NEGATIVE) 10/15/17 03:00 Urine Urobilinogen 0.2 E.U./dL (0.2 - 1.0) 10/15/17 03:00 Ur Leukocyte Esterase TRACE (NEGATIVE) H 10/15/17 03:00 Urine RBC >100 /hpf (0-5) H 10/15/17 03:00 Urine WBC >100 /hpf (0-5) H 10/15/17 03:00 Ur Epithelial Cells OCCASIONAL /lpf (FEW) 10/15/17 03:00 Urine Bacteria MODERATE /hpf (NONE SEEN) H 10/15/17 03:00 Ur Random Sodium 39 mmol/L 10/15/17 03:00 Urine Creatinine 136.0 mg/dl (39.0-259.0) 10/15/17 03:00 - Physical Exam Vitals and I&O: Vital Signs Temp 98.2 F 10/15/17 04:00 Pulse 86 10/15/17 09:06 Resp 18 10/15/17 04:00 BP 163/96 10/15/17 09:06 Pulse Ox 99 10/15/17 04:00 Intake & Output 10/14/17 10/15/17 10/15/17 18:59 06:59 18:59 Intake Total 720 150 480 Output Total 0 0 300 Balance 720 150 180 Weight (lbs) 70.76 kg 70.76 kg 78.018 kg Intake: Intake, IV Amount 50 cefTRIAXone 1 gm In 50 Sodium Chloride 0.9% 50 ml @ 100 mls/hr IV Q24HR [facility] Rx#:[id number] Oral 720 100 480 Output: Urine 300 Stool 0 0 Other: # Voids 4 1 3 # Bowel Movements 0 0 1 Active Medications: Current Medications Acetaminophen (Tylenol) 650 mg PO Q6HR PRN PRN Reason: mild to moderate pain Stop: 12/11/17 19:27 Last Admin: 10/14/17 22:43 Dose: 650 mg Allopurinol (Zyloprim) 100 mg PO DAILY [facility] Stop: 12/12/17 08:59 Last Admin: 10/15/17 09:06 Dose: 100 mg [place] Oil/[place] Balsam/Trypsin (Venelex) 1 appl TP DAILY [facility] Stop: 12/12/17 15:59 Last Admin: 10/15/17 09:09 Dose: 1 appl Famotidine (Pepcid) 20 mg PO BID [facility] Stop: 12/12/17 08:59 Last Admin: 10/15/17 09:08 Dose: 20 mg Heparin Sodium (Porcine) (Heparin) 5,000 units SUBQ Q12HR [facility] PRN Reason: Protocol Stop: 12/11/17 20:59 Last Admin: 10/15/17 09:09 Dose: 5,000 units Levofloxacin (Levaquin Pb) 500 mg in 100 mls @ 100 mls/hr IV Q24HR [facility] Stop: 12/14/17 05:59 Last Admin: 10/15/17 12:46 Dose: 100 mls/hr Insulin Aspart (Novolog Insulin Sliding Scale) 0 units SUBQ ACHS [facility] PRN Reason: Protocol Stop: 12/11/17 20:59 Last Admin: 10/15/17 12:42 Dose: 6 units Insulin Detemir (Levemir Insulin) 10 units SUBQ DAILY [facility] PRN Reason: Protocol Stop: 12/14/17 08:59 Last Admin: 10/15/17 08:12 Dose: 10 units Lorazepam (Ativan) 0.5 mg PO Q6HR PRN; Protocol PRN Reason: agitation Stop: 12/11/17 19:27 Magnesium Hydroxide (Milk Of Magnesia) 30 ml PO HS PRN PRN Reason: Constipation Stop: 12/11/17 19:27 Metoprolol Succinate (Toprol Xl) 25 mg PO BID [facility] Stop: 12/12/17 16:59 Last Admin: 10/15/17 09:06 Dose: 25 mg Miscellaneous (Clinical Monitoring) 1 ea MC PRN PRN PRN Reason: RENAL Stop: 12/12/17 10:33 Olanzapine (Zyprexa Zydis) 5 mg PO BID [facility] PRN Reason: Protocol Stop: 12/13/17 16:59 Zolpidem Tartrate (Ambien) 5 mg PO HS PRN PRN Reason: insomnia Stop: 12/11/17 19:27 Last Admin: 10/15/17 00:10 Dose: 5 mg General: no acute distress, well developed, well nourished HEENT: atraumatic, normocephalic, PERRLA Neck: supple, no thyromegaly Cardiovascular: S1S2, regular Lungs: clear to auscultation bilaterally, clear to percussion Abdomen: soft, catheter (cullen: hematuria.), no tender, no distended Extremities: no cyanosis, no clubbing, no edema Neurological: awake, alert Skin: other (sacral; stage 3 ulcer.) - Procedures Procedures: Procedures Procedure Code Date JEWEL MUSC/FASCIA 20 SQ CM/< 98668 10/12/17 EXCISION OF RIGHT HIP MUSCLE, OPEN APPROACH [id number] 10/12/17 Infectious Disease Assmt/Plan - Assessment Assessment: 1. Sacral stage III decubitus ulcer, infected. 2. Status post I&D. 3. Diabetes mellitus type . 4. Dementia. 5. Depression. 6. psychosis. 7. Schizophrenia. 8. Hematuria. - Plan Plan: CPM. antibiotics, rocephin. wound care. Nutritional Asmnt/Malnutr-PDOC - Dietary Evaluation Malnutrition Findings (Please click <Entered> for more info): Nutritional Asmnt/Malnutrition Start: 10/14/17 17: 10 Text: Status: Complete Freq: Document 10/14/17 17:13 LCHENG (Rec: 10/14/17 17:25 [email or web address]) Nutritional Asmnt/Malnutrition Patient General Information Nutritional Screening High Risk Consult Diagnosis pressure ulcer, hyperglycemia, dehydration Pertinent Medical Hx/Surgical Hx DM, dementia, depression, psychosis, schizophrenia, chronic renal insuff Subjective Information Consult received for unstageble pressure ulcer on , high BG on 10/12. Per records, PO intake 50-75%. Pt was on NPO today for surgery- excisional debridement, application of wound VAC Current Diet Order/ Nutrition Support pureed, CCHO 60gm Pertinent Medications novolog Pertinent Labs 10/14 Na 152, K 4.6, BUN 56, Cr 1.8, Glucose 262, POC 236-246 , Mg 2.9 Nutritional Hx/Data Height 1.8 m Height (Calculated Centimeters) 180.3 Current Weight (lbs) 70.76 kg Weight (Calculated Kilograms) 70.8 Weight (Calculated Grams) 34378.4 [place] Body Weight 172 % [place] Body Weight 91 Body Mass Index (BMI) 21.7 Weight Status Approriate GI Symptoms GI Symptoms None Last BM 10/13 Difficult in: None Skin Integrity/Comment: scar to right upper back, decubitus ulcer to buttocks Current %PO Fair (50-74%) Estimated Nutritional Goals BEE in Kcals: Using Current wt Calories/Kcals/Kg 27-32 Kcals Calculated 5041-6679 Protein: Using Current wt Protein g/k-1.2 Protein Calculated 71-85 Fluid: ml 1917-2130ml (1ml/kcal) Nutritional Problem 2. Problem Problem altered nutrition related lab values Etiology hx of DM Signs/Symptoms: Glucose 262, POC 236-246 1. Problem Problem increased nutrition needs ( calorie and protein) Etiology increased metabolic demand for wound healing Signs/Symptoms: decubitus ulcer and surgery Intervention/Recommendation Comments 1. Continue with current diet as ordered. If PO intake low, will consider nutrition supplements 2. MD to consider vit C and zinc for wound healing 3. Monitor PO intake, wt, labs and skin integrity 4. F/U as moderate risk in 3-5 days, 32-3/, PO check 10/17 Expected Outcomes/Goals Expected Outcomes/Goals 1. PO intake to meet at least 75% of nutritional needs. 2. Wt stability, skin to remain intact, labs to approach WNL.
--- NOTE | 2017-10-15 15:37 | General Progress Note ---
Subjective - Review of Systems Service Date: 10/15/17 Subjective: awake, verbal, still confused Objective - Results Result Diagrams: 10/15/17 06:15 10/15/17 06:15 Recent Labs: Laboratory Last Values WBC 8.4 Th/cmm (4.8-10.8) 10/15/17 06:15 RBC 5.03 Mil/cmm (3.80-5.80) 10/15/17 06:15 Hgb 14.6 gm/dL (12-16) 10/15/17 06:15 Hct 45.1 % (41.0-60) 10/15/17 06:15 MCV 89.7 fl (80-99) 10/15/17 06:15 MCH 29.0 pg (27.0-31.0) 10/15/17 06:15 MCHC Differential 32.3 pg (28.0-36.0) 10/15/17 06:15 RDW 16.0 % (11.5-20.0) 10/15/17 06:15 Plt Count 192 Th/cmm (150-400) 10/15/17 06:15 MPV 10.1 fl 10/15/17 06:15 Neutrophils % 78.4 % (40.0-80.0) 10/15/17 06:15 Lymphocytes % 14.8 % (20.0-50.0) L 10/15/17 06:15 Monocytes % 4.8 % (2.0-10.0) 10/15/17 06:15 Eosinophils % 1.7 % (0.0-5.0) 10/15/17 06:15 Basophils % 0.3 % (0.0-2.0) 10/15/17 06:15 Eos Smear Source URINE 10/15/17 03:00 Eos Smear Total Cells FEW EOSINOPHILS SEEN (NONE SEEN) 10/15/17 03:00 PT 10.5 SECONDS (9.5-11.5) 10/14/17 06:00 INR 1.01 (0.5-1.4) 10/14/17 06:00 PTT (Actin FS) 25.3 SECONDS (26.0-38.0) L 10/14/17 06:00 Sodium 150 mEq/L (136-145) H 10/15/17 06:15 Potassium 4.0 mEq/L (3.5-5.1) 10/15/17 06:15 Chloride 115 mEq/L (98-107) H 10/15/17 06:15 Carbon Dioxide 25.4 mEq/L (21.0-31.0) 10/15/17 06:15 Anion Gap 13.6 (7.0-16.0) 10/15/17 06:15 BUN 41 mg/dL (7-25) H 10/15/17 06:15 Creatinine 1.4 mg/dL (0.7-1.3) H 10/15/17 06:15 Est GFR ( Amer) TNP 10/15/17 06:15 Est GFR (Non-Af Amer) TNP 10/15/17 06:15 BUN/Creatinine Ratio 29.3 10/15/17 06:15 Glucose 203 mg/dL (70-105) H 10/15/17 06:15 POC Glucose 260 MG/DL (70 - 105) H 10/15/17 12:01 Hemoglobin A1c % 10.5 % (4.0-6.0) H 10/14/17 05:26 Uric Acid 11.9 mg/dL (4.4-7.6) H 10/14/17 06:00 Calcium 9.3 mg/dL (8.6-10.3) 10/15/17 06:15 Phosphorus 4.1 mg/dL (2.5-5.0) 10/14/17 06:00 Magnesium 2.9 mg/dL (1.9-2.7) H 10/14/17 06:00 Total Bilirubin 0.9 mg/dL (0.3-1.0) 10/14/17 06:00 AST 15 U/L (13-39) 10/14/17 06:00 ALT 17 U/L (7-52) 10/14/17 06:00 Alkaline Phosphatase 84 U/L (34-104) 10/14/17 06:00 Total Protein 7.7 gm/dL (6.0-8.3) 10/14/17 06:00 Albumin 3.7 gm/dL (4.2-5.5) L 10/14/17 06:00 Globulin 4.0 gm/dL 10/14/17 06:00 Albumin/Globulin Ratio 0.9 (1.0-1.8) L 10/14/17 06:00 TSH 0.28 uIU/ml (0.34-5.60) L 10/14/17 06:00 Urine Source CATH 10/15/17 03:00 Urine Color BROWN 10/15/17 03:00 Urine Clarity CLOUDY (CLEAR) 10/15/17 03:00 Urine pH 5.5 (4.6 - 8.0) 10/15/17 03:00 Ur Specific [place] 1.020 (1.005-1.030) 10/15/17 03:00 Urine Protein 100 mg/dL (NEGATIVE) H 10/15/17 03:00 Urine Glucose (UA) >=1000 mg/dL (NEGATIVE) H 10/15/17 03:00 Urine Ketones TRACE mg/dL (NEGATIVE) 10/15/17 03:00 Urine Blood LARGE (NEGATIVE) H 10/15/17 03:00 Urine Nitrate NEGATIVE (NEGATIVE) 10/15/17 03:00 Urine Bilirubin SMALL (NEGATIVE) H 10/15/17 03:00 Urine Ictotest NEGATIVE (NEGATIVE) 10/15/17 03:00 Urine Urobilinogen 0.2 E.U./dL (0.2 - 1.0) 10/15/17 03:00 Ur Leukocyte Esterase TRACE (NEGATIVE) H 10/15/17 03:00 Urine RBC >100 /hpf (0-5) H 10/15/17 03:00 Urine WBC >100 /hpf (0-5) H 10/15/17 03:00 Ur Epithelial Cells OCCASIONAL /lpf (FEW) 10/15/17 03:00 Urine Bacteria MODERATE /hpf (NONE SEEN) H 10/15/17 03:00 Ur Random Sodium 39 mmol/L 10/15/17 03:00 Urine Creatinine 136.0 mg/dl (39.0-259.0) 10/15/17 03:00 - Physical Exam Vitals and I&O: Vital Signs Temp 98.2 F 10/15/17 04:00 Pulse 86 10/15/17 09:06 Resp 18 10/15/17 04:00 BP 163/96 10/15/17 09:06 Pulse Ox 99 10/15/17 04:00 Intake & Output 10/14/17 10/15/17 10/15/17 18:59 06:59 18:59 Intake Total 720 150 480 Output Total 0 0 300 Balance 720 150 180 Weight (lbs) 70.76 kg 70.76 kg 78.018 kg Intake: Intake, IV Amount 50 cefTRIAXone 1 gm In 50 Sodium Chloride 0.9% 50 ml @ 100 mls/hr IV Q24HR [facility] Rx#:[id number] Oral 720 100 480 Output: Urine 300 Stool 0 0 Other: # Voids 4 1 3 # Bowel Movements 0 0 1 Active Medications: Current Medications Acetaminophen (Tylenol) 650 mg PO Q6HR PRN PRN Reason: mild to moderate pain Stop: 12/11/17 19:27 Last Admin: 10/14/17 22:43 Dose: 650 mg Allopurinol (Zyloprim) 100 mg PO DAILY [facility] Stop: 12/12/17 08:59 Last Admin: 10/15/17 09:06 Dose: 100 mg [place] Oil/[place] Balsam/Trypsin (Venelex) 1 appl TP DAILY [facility] Stop: 12/12/17 15:59 Last Admin: 10/15/17 09:09 Dose: 1 appl Famotidine (Pepcid) 20 mg PO BID [facility] Stop: 12/12/17 08:59 Last Admin: 10/15/17 09:08 Dose: 20 mg Heparin Sodium (Porcine) (Heparin) 5,000 units SUBQ Q12HR [facility] PRN Reason: Protocol Stop: 12/11/17 20:59 Last Admin: 10/15/17 09:09 Dose: 5,000 units Levofloxacin (Levaquin Pb) 500 mg in 100 mls @ 100 mls/hr IV Q24HR [facility] Stop: 12/14/17 05:59 Last Admin: 10/15/17 12:46 Dose: 100 mls/hr Insulin Aspart (Novolog Insulin Sliding Scale) 0 units SUBQ ACHS [facility] PRN Reason: Protocol Stop: 12/11/17 20:59 Last Admin: 10/15/17 12:42 Dose: 6 units Insulin Detemir (Levemir Insulin) 10 units SUBQ DAILY [facility] PRN Reason: Protocol Stop: 12/14/17 08:59 Last Admin: 10/15/17 08:12 Dose: 10 units Lorazepam (Ativan) 0.5 mg PO Q6HR PRN; Protocol PRN Reason: agitation Stop: 12/11/17 19:27 Magnesium Hydroxide (Milk Of Magnesia) 30 ml PO HS PRN PRN Reason: Constipation Stop: 12/11/17 19:27 Metoprolol Succinate (Toprol Xl) 25 mg PO BID [facility] Stop: 12/12/17 16:59 Last Admin: 10/15/17 09:06 Dose: 25 mg Miscellaneous (Clinical Monitoring) 1 ea MC PRN PRN PRN Reason: RENAL Stop: 12/12/17 10:33 Olanzapine (Zyprexa Zydis) 5 mg PO BID I[facility]EL PRN Reason: Protocol Stop: 12/13/17 16:59 Zolpidem Tartrate (Ambien) 5 mg PO HS PRN PRN Reason: insomnia Stop: 12/11/17 19:27 Last Admin: 10/15/17 00:10 Dose: 5 mg General: Alert, Oriented x3 HEENT: Atraumatic, PERRLA Neck: Supple Cardiovascular: Regular rate, Normal S1, Normal S2 Lungs: Clear to auscultation Abdomen: Bowel sounds, Soft Extremities: no Clubbing, no Cyanosis, no Edema Neurological: Sensation intact Skin: Rash Psych/Mental Status: Mood NL - Procedures Procedures: Procedures Procedure Code Date JWEEL MUSC/FASCIA 20 SQ CM/< 83956 10/12/17 EXCISION OF RIGHT HIP MUSCLE, OPEN APPROACH [id number] 10/12/17 Assessment/Plan - Assessment Assessment: KEN on CKD Stage 4 decub ulcer Severe dehydration Ess HTN Type 2 DM Psychosis - Plan Plan: Lab - Result Diagrams 10/14/17 06:00 10/14/17 06:00 Current Medications Acetaminophen (Tylenol) 650 mg PO Q6HR PRN PRN Reason: mild to moderate pain Stop: 12/11/17 19:27 Allopurinol (Zyloprim) 100 mg PO DAILY [facility] Stop: 12/12/17 08:59 Last Admin: 10/14/17 10:00 Dose: Not Given [place] Oil/[place] Balsam/Trypsin (Venelex) 1 appl TP DAILY [facility] Stop: 12/12/17 15:59 Last Admin: 10/14/17 10:00 Dose: 1 appl Famotidine (Pepcid) 20 mg PO BID [facility] Stop: 12/12/17 08:59 Last Admin: 10/14/17 18:22 Dose: 20 mg Heparin Sodium (Porcine) (Heparin) 5,000 units SUBQ Q12HR [facility] PRN Reason: Protocol Stop: 12/11/17 20:59 Last Admin: 10/14/17 07:50 Dose: Not Given Ceftriaxone Sodium 1 gm/ (Sodium Chloride) 50 mls @ 100 mls/hr IV Q24HR [facility] Stop: 12/11/17 16:44 Last Admin: 10/14/17 17:45 Dose: 100 mls/hr Insulin Aspart (Novolog Insulin Sliding Scale) 0 units SUBQ ACHS [facility] PRN Reason: Protocol Stop: 12/11/17 20:59 Last Admin: 10/14/17 18:23 Dose: 6 units Lorazepam (Ativan) 0.5 mg PO Q6HR PRN; Protocol PRN Reason: agitation Stop: 12/11/17 19:27 Magnesium Hydroxide (Milk Of Magnesia) 30 ml PO HS PRN PRN Reason: Constipation Stop: 12/11/17 19:27 Metoprolol Succinate (Toprol Xl) 25 mg PO BID [facility] Stop: 12/12/17 16:59 Last Admin: 10/14/17 18:23 Dose: 25 mg Miscellaneous (Clinical Monitoring) 1 ea MC PRN PRN PRN Reason: RENAL Stop: 12/12/17 10:33 Olanzapine (Zyprexa Zydis) 5 mg PO BID IMM[facility]UEL PRN Reason: Protocol Stop: 12/13/17 16:59 Zolpidem Tartrate (Ambien) 5 mg PO HS PRN PRN Reason: insomnia Stop: 12/11/17 19:27 Lab - Result Diagrams 10/15/17 06:15 10/15/17 06:15 Na down to 150 Kidney fnc gradually improving agree w/ Allopurinol f/u electrolytes, agree w/ Levaquin continue hydration Nutritional Asmnt/Malnutr-PDOC - Dietary Evaluation Malnutrition Findings (Please click <Entered> for more info): Nutritional Asmnt/Malnutrition Start: 10/14/17 17: 10 Text: Status: Complete Freq: Document 10/14/17 17:13 GREY (Rec: 10/14/17 17:25 GREY [email or web address]) Nutritional Asmnt/Malnutrition Patient General Information Nutritional Screening High Risk Consult Diagnosis pressure ulcer, hyperglycemia, dehydration Pertinent Medical Hx/Surgical Hx DM, dementia, depression, psychosis, schizophrenia, chronic renal insuff Subjective Information Consult received for unstageble pressure ulcer on , high BG on 10/12. Per records, PO intake 50-75%. Pt was on NPO today for surgery- excisional debridement, application of wound VAC Current Diet Order/ Nutrition Support pureed, CCHO 60gm Pertinent Medications novolog Pertinent Labs 10/14 Na 152, K 4.6, BUN 56, Cr 1.8, Glucose 262, POC 236-246 , Mg 2.9 Nutritional Hx/Data Height 1.8 m Height (Calculated Centimeters) 180.3 Current Weight (lbs) 70.76 kg Weight (Calculated Kilograms) 70.8 Weight (Calculated Grams) 58186.4 [place] Body Weight 172 % [place] Body Weight 91 Body Mass Index (BMI) 21.7 Weight Status Approriate GI Symptoms GI Symptoms None Last BM 10/13 Difficult in: None Skin Integrity/Comment: scar to right upper back, decubitus ulcer to buttocks Current %PO Fair (50-74%) Estimated Nutritional Goals BEE in Kcals: Using Current wt Calories/Kcals/Kg 27-32 Kcals Calculated 2022-9332 Protein: Using Current wt Protein g/k-1.2 Protein Calculated 71-85 Fluid: ml 1917-2130ml (1ml/kcal) Nutritional Problem 2. Problem Problem altered nutrition related lab values Etiology hx of DM Signs/Symptoms: Glucose 262, POC 236-246 1. Problem Problem increased nutrition needs ( calorie and protein) Etiology increased metabolic demand for wound healing Signs/Symptoms: decubitus ulcer and surgery Intervention/Recommendation Comments 1. Continue with current diet as ordered. If PO intake low, will consider nutrition supplements 2. MD to consider vit C and zinc for wound healing 3. Monitor PO intake, wt, labs and skin integrity 4. F/U as moderate risk in 3-5 days, 10/17-3, PO check 10/17 Expected Outcomes/Goals Expected Outcomes/Goals 1. PO intake to meet at least 75% of nutritional needs. 2. Wt stability, skin to remain intact, labs to approach WNL.
--- NOTE | 2017-10-15 20:15 | Progress Notes ---
DATE: SUBJECTIVE: Chart reviewed and the patient interviewed. Also discussed the patient's condition with the staff and reviewed records and labs. The patient is still having episodes of agitation and irritability, but seems to be less than before. Also, still at times gets agitated, but easier to redirect him. The patient is compliant with taking his medications and no side effects of medications. ASSESSMENT: The patient is still agitated, but less than before. TREATMENT PLAN: Continue current medications. Also, continue to work on his poor impulse control and followup. JOB# [id number]
[2017-10-16] MEDS: Levofloxacin 500mg/100mL 500 MG/100 ML BAG IV SCH (05:03)
[2017-10-16] MEDS: INSULIN ASPART SLIDING SCALE 100 UNITS/ML UNIT SUBQ SCH ×4 (08:13→22:23)
--- NOTE | 2017-10-16 08:42 | General Progress Note ---
Subjective - Review of Systems Service Date: 10/16/17 Subjective: Patient was seen and examined. Oral Intake has improved. agitated this morning. Patient recently underwent Wound debridement of sacral decubitus. Objective - Results Result Diagrams: 10/16/17 09:11 10/16/17 09:11 Recent Labs: Laboratory Last Values WBC 8.4 Th/cmm (4.8-10.8) 10/15/17 06:15 RBC 5.03 Mil/cmm (3.80-5.80) 10/15/17 06:15 Hgb 14.6 gm/dL (12-16) 10/15/17 06:15 Hct 45.1 % (41.0-60) 10/15/17 06:15 MCV 89.7 fl (80-99) 10/15/17 06:15 MCH 29.0 pg (27.0-31.0) 10/15/17 06:15 MCHC Differential 32.3 pg (28.0-36.0) 10/15/17 06:15 RDW 16.0 % (11.5-20.0) 10/15/17 06:15 Plt Count 192 Th/cmm (150-400) 10/15/17 06:15 MPV 10.1 fl 10/15/17 06:15 Neutrophils % 78.4 % (40.0-80.0) 10/15/17 06:15 Lymphocytes % 14.8 % (20.0-50.0) L 10/15/17 06:15 Monocytes % 4.8 % (2.0-10.0) 10/15/17 06:15 Eosinophils % 1.7 % (0.0-5.0) 10/15/17 06:15 Basophils % 0.3 % (0.0-2.0) 10/15/17 06:15 Eos Smear Source URINE 10/15/17 03:00 Eos Smear Total Cells FEW EOSINOPHILS SEEN (NONE SEEN) 10/15/17 03:00 PT 10.5 SECONDS (9.5-11.5) 10/14/17 06:00 INR 1.01 (0.5-1.4) 10/14/17 06:00 PTT (Actin FS) 25.3 SECONDS (26.0-38.0) L 10/14/17 06:00 Sodium 150 mEq/L (136-145) H 10/15/17 06:15 Potassium 4.0 mEq/L (3.5-5.1) 10/15/17 06:15 Chloride 115 mEq/L (98-107) H 10/15/17 06:15 Carbon Dioxide 25.4 mEq/L (21.0-31.0) 10/15/17 06:15 Anion Gap 13.6 (7.0-16.0) 10/15/17 06:15 BUN 41 mg/dL (7-25) H 10/15/17 06:15 Creatinine 1.4 mg/dL (0.7-1.3) H 10/15/17 06:15 Est GFR ( Amer) TNP 10/15/17 06:15 Est GFR (Non-Af Amer) TNP 10/15/17 06:15 BUN/Creatinine Ratio 29.3 10/15/17 06:15 Glucose 203 mg/dL (70-105) H 10/15/17 06:15 POC Glucose 269 MG/DL (70 - 105) H 10/16/17 05:18 Hemoglobin A1c % 10.5 % (4.0-6.0) H 10/14/17 05:26 Uric Acid 11.9 mg/dL (4.4-7.6) H 10/14/17 06:00 Calcium 9.3 mg/dL (8.6-10.3) 10/15/17 06:15 Phosphorus 4.1 mg/dL (2.5-5.0) 10/14/17 06:00 Magnesium 2.9 mg/dL (1.9-2.7) H 10/14/17 06:00 Total Bilirubin 0.9 mg/dL (0.3-1.0) 10/14/17 06:00 AST 15 U/L (13-39) 10/14/17 06:00 ALT 17 U/L (7-52) 10/14/17 06:00 Alkaline Phosphatase 84 U/L (34-104) 10/14/17 06:00 Total Protein 7.7 gm/dL (6.0-8.3) 10/14/17 06:00 Albumin 3.7 gm/dL (4.2-5.5) L 10/14/17 06:00 Globulin 4.0 gm/dL 10/14/17 06:00 Albumin/Globulin Ratio 0.9 (1.0-1.8) L 10/14/17 06:00 TSH 0.28 uIU/ml (0.34-5.60) L 10/14/17 06:00 Urine Source CATH 10/15/17 03:00 Urine Color BROWN 10/15/17 03:00 Urine Clarity CLOUDY (CLEAR) 10/15/17 03:00 Urine pH 5.5 (4.6 - 8.0) 10/15/17 03:00 Ur Specific [place] 1.020 (1.005-1.030) 10/15/17 03:00 Urine Protein 100 mg/dL (NEGATIVE) H 10/15/17 03:00 Urine Glucose (UA) >=1000 mg/dL (NEGATIVE) H 10/15/17 03:00 Urine Ketones TRACE mg/dL (NEGATIVE) 10/15/17 03:00 Urine Blood LARGE (NEGATIVE) H 10/15/17 03:00 Urine Nitrate NEGATIVE (NEGATIVE) 10/15/17 03:00 Urine Bilirubin SMALL (NEGATIVE) H 10/15/17 03:00 Urine Ictotest NEGATIVE (NEGATIVE) 10/15/17 03:00 Urine Urobilinogen 0.2 E.U./dL (0.2 - 1.0) 10/15/17 03:00 Ur Leukocyte Esterase TRACE (NEGATIVE) H 10/15/17 03:00 Urine RBC >100 /hpf (0-5) H 10/15/17 03:00 Urine WBC >100 /hpf (0-5) H 10/15/17 03:00 Ur Epithelial Cells OCCASIONAL /lpf (FEW) 10/15/17 03:00 Urine Bacteria MODERATE /hpf (NONE SEEN) H 10/15/17 03:00 Ur Random Sodium 39 mmol/L 10/15/17 03:00 Urine Creatinine 136.0 mg/dl (39.0-259.0) 10/15/17 03:00 - Physical Exam Vitals and I&O: Vital Signs Temp 97.4 F 10/16/17 04:00 Pulse 97 10/16/17 04:00 Resp 18 10/16/17 04:00 BP 147/85 10/16/17 04:00 Pulse Ox 97 10/16/17 04:00 Intake & Output 02/10/16/17 10/16/17 18:59 06:59 18:59 Intake Total 1080 580 Output Total 925 Balance 155 580 Weight (lbs) 78.018 kg 78.018 kg Intake: Intake, IV Amount 100 100 Levofloxacin 500mg/100mL 100 100 500 mg In 100 ml @ 100 mls/hr IV Q24HR [facility] Rx#: [id number] Oral 980 480 Output: Urine 900 Other 25 Other: # Voids 3 4 # Bowel Movements 1 Active Medications: Current Medications Acetaminophen (Tylenol) 650 mg PO Q6HR PRN PRN Reason: mild to moderate pain Stop: 12/11/17 19:27 Last Admin: 10/16/17 03:51 Dose: 650 mg Acetaminophen/Hydrocodone Bitart ([place] 5mg/325mg) 1 tab PO Q6H PRN PRN Reason: Pain (Moderate) Stop: 12/15/17 08:21 Allopurinol (Zyloprim) 100 mg PO DAILY [facility] Stop: 12/12/17 08:59 Last Admin: 10/15/17 09:06 Dose: 100 mg [place] Oil/[place] Balsam/Trypsin (Venelex) 1 appl TP DAILY [facility] Stop: 12/12/17 15:59 Last Admin: 10/15/17 09:09 Dose: 1 appl Clonazepam (Klonopin) 1 mg PO BID [facility]EL PRN Reason: Protocol Stop: 12/15/17 08:59 Famotidine (Pepcid) 20 mg PO BID [facility] Stop: 12/12/17 08:59 Last Admin: 10/15/17 17:33 Dose: 20 mg Heparin Sodium (Porcine) (Heparin) 5,000 units SUBQ Q12HR [facility] PRN Reason: Protocol Stop: 12/11/17 20:59 Last Admin: 10/15/17 20:46 Dose: 5,000 units Levofloxacin (Levaquin Pb) 500 mg in 100 mls @ 100 mls/hr IV Q24HR [facility] Stop: 12/14/17 05:59 Last Infusion: 10/16/17 06:03 Dose: Infused Insulin Aspart (Novolog Insulin Sliding Scale) 0 units SUBQ ACHS [facility] PRN Reason: Protocol Stop: 12/11/17 20:59 Last Admin: 10/16/17 08:13 Dose: 6 units Insulin Detemir (Levemir Insulin) 10 units SUBQ DAILY [facility] PRN Reason: Protocol Stop: 12/14/17 08:59 Last Admin: 10/15/17 08:12 Dose: 10 units Lorazepam (Ativan) 0.5 mg PO Q6HR PRN; Protocol PRN Reason: agitation Stop: 12/11/17 19:27 Last Admin: 10/16/17 05:15 Dose: 0.5 mg Magnesium Hydroxide (Milk Of Magnesia) 30 ml PO HS PRN PRN Reason: Constipation Stop: 12/11/17 19:27 Metoprolol Succinate (Toprol Xl) 25 mg PO BID [facility] Stop: 12/12/17 16:59 Last Admin: 10/15/17 17:33 Dose: 25 mg Miscellaneous (Clinical Monitoring) 1 ea MC PRN PRN PRN Reason: RENAL Stop: 12/12/17 10:33 Olanzapine (Zyprexa Zydis) 10 mg PO BID [facility]EL PRN Reason: Protocol Stop: 12/15/17 06:50 Zolpidem Tartrate (Ambien) 5 mg PO HS PRN PRN Reason: insomnia Stop: 12/11/17 19:27 Last Admin: 10/15/17 00:10 Dose: 5 mg General: Alert, Oriented x3 HEENT: Atraumatic, PERRLA Neck: Supple Cardiovascular: Regular rate, Normal S1, Normal S2 Lungs: Clear to auscultation Abdomen: Bowel sounds, Soft Extremities: no Clubbing, no Cyanosis, no Edema Neurological: Sensation intact Skin: Rash Psych/Mental Status: Mood NL - Procedures Procedures: Procedures Procedure Code Date JEWEL MUSC/FASCIA 20 SQ CM/< 55316 10/12/17 EXCISION OF RIGHT HIP MUSCLE, OPEN APPROACH [id number] 10/12/17 Assessment/Plan - Assessment Assessment: hypernatremia prerenal azotemia hyperglycemia depression/anxiety gout dementia schizophrenia S/P wound debridement of sacral decubitus UTI discharge planning. - Plan Plan: will order repeat cmp,cbc tomorrow AM renal consult -- Dr. Sharp sacral decubitus ... will order Gen Surgical consult -- Dr. Greene for possible wound debridement Gout ... continue allopurinol 100mg PO daily continue wound vac. continue hydrocodone PO for pain control. Nutritional Asmnt/Malnutr-PDOC - Dietary Evaluation Malnutrition Findings (Please click <Entered> for more info): Nutritional Asmnt/Malnutrition Start: 10/14/17 17: 10 Text: Status: Complete Freq: Document 10/14/17 17:13 GREY (Rec: 10/14/17 17:25 GREY [email or web address]) Nutritional Asmnt/Malnutrition Patient General Information Nutritional Screening High Risk Consult Diagnosis pressure ulcer, hyperglycemia, dehydration Pertinent Medical Hx/Surgical Hx DM, dementia, depression, psychosis, schizophrenia, chronic renal insuff Subjective Information Consult received for unstageble pressure ulcer on , high BG on 10/12. Per records, PO intake 50-75%. Pt was on NPO today for surgery- excisional debridement, application of wound VAC Current Diet Order/ Nutrition Support pureed, CCHO 60gm Pertinent Medications novolog Pertinent Labs 10/14 Na 152, K 4.6, BUN 56, Cr 1.8, Glucose 262, POC 236-246 , Mg 2.9 Nutritional Hx/Data Height 1.8 m Height (Calculated Centimeters) 180.3 Current Weight (lbs) 70.76 kg Weight (Calculated Kilograms) 70.8 Weight (Calculated Grams) 31462.4 [place] Body Weight 172 % [place] Body Weight 91 Body Mass Index (BMI) 21.7 Weight Status Approriate GI Symptoms GI Symptoms None Last BM 10/13 Difficult in: None Skin Integrity/Comment: scar to right upper back, decubitus ulcer to buttocks Current %PO Fair (50-74%) Estimated Nutritional Goals BEE in Kcals: Using Current wt Calories/Kcals/Kg 27-32 Kcals Calculated 4273-5978 Protein: Using Current wt Protein g/k-1.2 Protein Calculated 71-85 Fluid: ml 1917-2130ml (1ml/kcal) Nutritional Problem 2. Problem Problem altered nutrition related lab values Etiology hx of DM Signs/Symptoms: Glucose 262, POC 236-246 1. Problem Problem increased nutrition needs ( calorie and protein) Etiology increased metabolic demand for wound healing Signs/Symptoms: decubitus ulcer and surgery Intervention/Recommendation Comments 1. Continue with current diet as ordered. If PO intake low, will consider nutrition supplements 2. MD to consider vit C and zinc for wound healing 3. Monitor PO intake, wt, labs and skin integrity 4. F/U as moderate risk in 3-5 days, 3/2-3/4, PO check 3/2 Expected Outcomes/Goals Expected Outcomes/Goals 1. PO intake to meet at least 75% of nutritional needs. 2. Wt stability, skin to remain intact, labs to approach WNL.
[2017-10-16 09:20] LABS: % BASOPHILS 1.2 % (0.0-2.0); % EOSINOPHILS 1.5 % (0.0-5.0); % LYMPHOCYTES 19.2 % (20.0-50.0); % MONOCYTES 5.9 % (2.0-10.0); % NEUTROPHILS 72.2 % (40.0-80.0); BASOPHILE ABSOLUTE 0.1 Th/cumm (0-0.2); EOSINOPHILE ABSOLUTE 0.1 Th/cmm (0.1-0.4); HEMATOCRIT 42.8 % (41.0-60); HEMOGLOBIN 13.7 gm/dL (12-16); LYMPHOCYTE ABSOLUTE 1.3 Th/cmm (1.5-3.0); MEAN CELL VOLUME 90.5 fl (80-99); MEAN CORPUSCULAR HEMOGLOBIN 28.9 pg (27.0-31.0); MEAN PLATELET VOLUME 9.7 fl; MONOCYTE ABSOLUTE 0.4 Th/cmm (0.3-1.0); NEUTROPHILE ABSOLUTE 4.8 Th/cmm (1.8-8.0); PLATELET COUNT 162 Th/cmm (150-400); RED BLOOD COUNT 4.73 Mil/cmm (3.80-5.80); RED CELL DISTRIBUTION WIDTH 16.2 % (11.5-20.0)
[2017-10-16 09:21] LABS: WHITE BLOOD COUNT 6.7 Th/cmm (4.8-10.8)
[2017-10-16 09:39] LABS: ALB/GLOB RATIO 0.9 (1.0-1.8); ALKALINE PHOSPHATASE 81 U/L (34-104); ANION GAP 7.6 (7.0-16.0); BILIRUBIN,TOTAL 0.6 mg/dL (0.3-1.0); BUN - UREA NITROGEN 27 mg/dL (7-25); CALCIUM SERUM 9.1 mg/dL (8.6-10.3); CARBON DIOXIDE 28.4 mEq/L (21.0-31.0); CHLORIDE 113 mEq/L (98-107); CREATININE - SERUM 1.3 mg/dL (0.7-1.3); GLUCOSE 298 mg/dL (70-105); SGOT 17 U/L (13-39); SGPT/ALT 13 U/L (7-52); SODIUM SERUM 145 mEq/L (136-145); TOTAL PROTEIN,SERUM 6.4 gm/dL (6.0-8.3)
[2017-10-16] MEDS: Venelex 60gm Tube TP SCH (09:55)
[2017-10-16] MEDS: OLANZapine 5 mg Oral Disintegrating Tab PO SCH ×2 (09:56→18:53)
[2017-10-16] MEDS: Insulin Detemir 100 units/mL 10mL Vial SUBQ SCH (09:56)
--- NOTE | 2017-10-16 11:00 | Progress Notes ---
DATE: SUBJECTIVE: Chart reviewed and the patient interviewed. Also, discussed the patient condition and reviewed records and labs. The patient is still extremely agitated and restless. The patient also is still unable to follow any directions and he has been extremely agitated. The patient also still has severe mood swings and he is still aggressive with the staff, especially when they try to help him with his ADLs. Otherwise, the patient is taking his medications, but with prompt from staff. ASSESSMENT: The patient is still severely agitated and is still in irritable mood. TREATMENT PLAN: We will continue monitoring his behavior and his condition closely. Also, staff asked if the patient can be on 1:1 observation. We will do so. Also will add Klonopin in a dose of 1 mg twice a day and we will continue to follow up closely. [facility]# [id number]
--- NOTE | 2017-10-16 11:40 | General Progress Note ---
Subjective - Review of Systems Service Date: 10/16/17 Events since last encounter: labs noted minimal woundd vac drainage Objective - Results Result Diagrams: 10/16/17 09:11 10/16/17 09:11 Recent Labs: Laboratory Last Values WBC 6.7 Th/cmm (4.8-10.8) D 10/16/17 09:11 RBC 4.73 Mil/cmm (3.80-5.80) 10/16/17 09:11 Hgb 13.7 gm/dL (12-16) 10/16/17 09:11 Hct 42.8 % (41.0-60) 10/16/17 09:11 MCV 90.5 fl (80-99) 10/16/17 09:11 MCH 28.9 pg (27.0-31.0) 10/16/17 09:11 MCHC Differential 32.0 pg (28.0-36.0) 10/16/17 09:11 RDW 16.2 % (11.5-20.0) 10/16/17 09:11 Plt Count 162 Th/cmm (150-400) 10/16/17 09:11 MPV 9.7 fl 10/16/17 09:11 Neutrophils % 72.2 % (40.0-80.0) 10/16/17 09:11 Lymphocytes % 19.2 % (20.0-50.0) L 10/16/17 09:11 Monocytes % 5.9 % (2.0-10.0) 10/16/17 09:11 Eosinophils % 1.5 % (0.0-5.0) 10/16/17 09:11 Basophils % 1.2 % (0.0-2.0) 10/16/17 09:11 Eos Smear Source URINE 10/15/17 03:00 Eos Smear Total Cells FEW EOSINOPHILS SEEN (NONE SEEN) 10/15/17 03:00 PT 10.5 SECONDS (9.5-11.5) 10/14/17 06:00 INR 1.01 (0.5-1.4) 10/14/17 06:00 PTT (Actin FS) 25.3 SECONDS (26.0-38.0) L 10/14/17 06:00 Sodium 145 mEq/L (136-145) 10/16/17 09:11 Potassium 4.0 mEq/L (3.5-5.1) 10/16/17 09:11 Chloride 113 mEq/L (98-107) H 10/16/17 09:11 Carbon Dioxide 28.4 mEq/L (21.0-31.0) 10/16/17 09:11 Anion Gap 7.6 (7.0-16.0) 10/16/17 09:11 BUN 27 mg/dL (7-25) H 10/16/17 09:11 Creatinine 1.3 mg/dL (0.7-1.3) 10/16/17 09:11 Est GFR ( Amer) TNP 10/16/17 09:11 Est GFR (Non-Af Amer) TNP 10/16/17 09:11 BUN/Creatinine Ratio 20.8 10/16/17 09:11 Glucose 298 mg/dL (70-105) H 10/16/17 09:11 POC Glucose 269 MG/DL (70 - 105) H 10/16/17 05:18 Hemoglobin A1c % 10.5 % (4.0-6.0) H 10/14/17 05:26 Uric Acid 11.9 mg/dL (4.4-7.6) H 10/14/17 06:00 Calcium 9.1 mg/dL (8.6-10.3) 10/16/17 09:11 Phosphorus 4.1 mg/dL (2.5-5.0) 10/14/17 06:00 Magnesium 2.9 mg/dL (1.9-2.7) H 10/14/17 06:00 Total Bilirubin 0.6 mg/dL (0.3-1.0) 10/16/17 09:11 AST 17 U/L (13-39) 10/16/17 09:11 ALT 13 U/L (7-52) 10/16/17 09:11 Alkaline Phosphatase 81 U/L (34-104) 10/16/17 09:11 Total Protein 6.4 gm/dL (6.0-8.3) 10/16/17 09:11 Albumin 3.0 gm/dL (4.2-5.5) L 10/16/17 09:11 Globulin 3.4 gm/dL 10/16/17 09:11 Albumin/Globulin Ratio 0.9 (1.0-1.8) L 10/16/17 09:11 TSH 0.28 uIU/ml (0.34-5.60) L 10/14/17 06:00 Urine Source CATH 10/15/17 03:00 Urine Color BROWN 10/15/17 03:00 Urine Clarity CLOUDY (CLEAR) 10/15/17 03:00 Urine pH 5.5 (4.6 - 8.0) 10/15/17 03:00 Ur Specific [place] 1.020 (1.005-1.030) 10/15/17 03:00 Urine Protein 100 mg/dL (NEGATIVE) H 10/15/17 03:00 Urine Glucose (UA) >=1000 mg/dL (NEGATIVE) H 10/15/17 03:00 Urine Ketones TRACE mg/dL (NEGATIVE) 10/15/17 03:00 Urine Blood LARGE (NEGATIVE) H 10/15/17 03:00 Urine Nitrate NEGATIVE (NEGATIVE) 10/15/17 03:00 Urine Bilirubin SMALL (NEGATIVE) H 10/15/17 03:00 Urine Ictotest NEGATIVE (NEGATIVE) 10/15/17 03:00 Urine Urobilinogen 0.2 E.U./dL (0.2 - 1.0) 10/15/17 03:00 Ur Leukocyte Esterase TRACE (NEGATIVE) H 10/15/17 03:00 Urine RBC >100 /hpf (0-5) H 10/15/17 03:00 Urine WBC >100 /hpf (0-5) H 10/15/17 03:00 Ur Epithelial Cells OCCASIONAL /lpf (FEW) 10/15/17 03:00 Urine Bacteria MODERATE /hpf (NONE SEEN) H 10/15/17 03:00 Ur Random Sodium 39 mmol/L 10/15/17 03:00 Urine Creatinine 136.0 mg/dl (39.0-259.0) 10/15/17 03:00 - Physical Exam Vitals and I&O: Vital Signs Temp 97.4 F 10/16/17 04:00 Pulse 97 10/16/17 04:00 Resp 18 10/16/17 04:00 BP 147/85 10/16/17 04:00 Pulse Ox 97 10/16/17 04:00 Intake & Output 10/15/17 10/16/17 10/16/17 18:59 06:59 18:59 Intake Total 1080 580 Output Total 925 Balance 155 580 Weight (lbs) 78.018 kg 78.018 kg Intake: Intake, IV Amount 100 100 Levofloxacin 500mg/100mL 100 100 500 mg In 100 ml @ 100 mls/hr IV Q24HR [facility] Rx#: [id number] Oral 980 480 Output: Urine 900 Other 25 Other: # Voids 3 4 # Bowel Movements 1 Active Medications: Current Medications Acetaminophen (Tylenol) 650 mg PO Q6HR PRN PRN Reason: mild to moderate pain Stop: 12/11/17 19:27 Last Admin: 10/16/17 03:51 Dose: 650 mg Acetaminophen/Hydrocodone Bitart ([place] 5mg/325mg) 1 tab PO Q6H PRN PRN Reason: Pain (Moderate) Stop: 12/15/17 08:21 Allopurinol (Zyloprim) 100 mg PO DAILY [facility] Stop: 12/12/17 08:59 Last Admin: 10/16/17 09:55 Dose: Not Given [place] Oil/[place] Balsam/Trypsin (Venelex) 1 appl TP DAILY [facility] Stop: 12/12/17 15:59 Last Admin: 10/16/17 09:55 Dose: Not Given Clonazepam (Klonopin) 1 mg PO BID [facility] PRN Reason: Protocol Stop: 12/15/17 08:59 Last Admin: 10/16/17 09:55 Dose: Not Given Famotidine (Pepcid) 20 mg PO BID [facility] Stop: 12/12/17 08:59 Last Admin: 10/16/17 09:55 Dose: Not Given Heparin Sodium (Porcine) (Heparin) 5,000 units SUBQ Q12HR [facility] PRN Reason: Protocol Stop: 12/11/17 20:59 Last Admin: 10/16/17 09:56 Dose: Not Given Levofloxacin (Levaquin Pb) 500 mg in 100 mls @ 100 mls/hr IV Q24HR [facility] Stop: 12/14/17 05:59 Last Infusion: 10/16/17 06:03 Dose: Infused Insulin Aspart (Novolog Insulin Sliding Scale) 0 units SUBQ ACHS [facility] PRN Reason: Protocol Stop: 12/11/17 20:59 Last Admin: 10/16/17 08:13 Dose: 6 units Insulin Detemir (Levemir Insulin) 10 units SUBQ DAILY [facility] PRN Reason: Protocol Stop: 12/14/17 08:59 Last Admin: 10/16/17 09:56 Dose: Not Given Lorazepam (Ativan) 0.5 mg PO Q6HR PRN; Protocol PRN Reason: agitation Stop: 12/11/17 19:27 Last Admin: 10/16/17 05:15 Dose: 0.5 mg Magnesium Hydroxide (Milk Of Magnesia) 30 ml PO HS PRN PRN Reason: Constipation Stop: 12/11/17 19:27 Metoprolol Succinate (Toprol Xl) 25 mg PO BID [facility] Stop: 12/12/17 16:59 Last Admin: 10/16/17 09:56 Dose: Not Given Miscellaneous (Clinical Monitoring) 1 ea MC PRN PRN PRN Reason: RENAL Stop: 12/12/17 10:33 Olanzapine (Zyprexa Zydis) 10 mg PO BID [facility]EL PRN Reason: Protocol Stop: 12/15/17 06:50 Last Admin: 10/16/17 09:56 Dose: Not Given Zolpidem Tartrate (Ambien) 5 mg PO HS PRN PRN Reason: insomnia Stop: 12/11/17 19:27 Last Admin: 10/15/17 00:10 Dose: 5 mg General: Alert, Oriented x3 HEENT: Atraumatic, PERRLA Neck: Supple Cardiovascular: Regular rate, Normal S1, Normal S2 Lungs: Clear to auscultation Abdomen: Bowel sounds, Soft Extremities: no Clubbing, no Cyanosis, no Edema Neurological: Sensation intact Skin: Rash Psych/Mental Status: Mood NL - Procedures Procedures: Procedures Procedure Code Date JEWEL MUSC/FASCIA 20 SQ CM/< 94905 10/12/17 EXCISION OF RIGHT HIP MUSCLE, OPEN APPROACH [id number] 10/12/17 Nutritional Asmnt/Malnutr-PDOC - Dietary Evaluation Malnutrition Findings (Please click <Entered> for more info): Nutritional Asmnt/Malnutrition Start: 10/14/17 17: 10 Text: Status: Complete Freq: Document 10/14/17 17:13 LCDEMIG (Rec: 10/14/17 17:25 [email or web address]) Nutritional Asmnt/Malnutrition Patient General Information Nutritional Screening High Risk Consult Diagnosis pressure ulcer, hyperglycemia, dehydration Pertinent Medical Hx/Surgical Hx DM, dementia, depression, psychosis, schizophrenia, chronic renal insuff Subjective Information Consult received for unstageble pressure ulcer on , high BG on 10/12. Per records, PO intake 50-75%. Pt was on NPO today for surgery- excisional debridement, application of wound VAC Current Diet Order/ Nutrition Support pureed, CCHO 60gm Pertinent Medications novolog Pertinent Labs 10/14 Na 152, K 4.6, BUN 56, Cr 1.8, Glucose 262, POC 236-246 , Mg 2.9 Nutritional Hx/Data Height 1.8 m Height (Calculated Centimeters) 180.3 Current Weight (lbs) 70.76 kg Weight (Calculated Kilograms) 70.8 Weight (Calculated Grams) 54010.4 [place] Body Weight 172 % [place] Body Weight 91 Body Mass Index (BMI) 21.7 Weight Status Approriate GI Symptoms GI Symptoms None Last BM 10/13 Difficult in: None Skin Integrity/Comment: scar to right upper back, decubitus ulcer to buttocks Current %PO Fair (50-74%) Estimated Nutritional Goals BEE in Kcals: Using Current wt Calories/Kcals/Kg 27-32 Kcals Calculated 6631-4367 Protein: Using Current wt Protein g/k-1.2 Protein Calculated 71-85 Fluid: ml 1917-2130ml (1ml/kcal) Nutritional Problem 2. Problem Problem altered nutrition related lab values Etiology hx of DM Signs/Symptoms: Glucose 262, POC 236-246 1. Problem Problem increased nutrition needs ( calorie and protein) Etiology increased metabolic demand for wound healing Signs/Symptoms: decubitus ulcer and surgery Intervention/Recommendation Comments 1. Continue with current diet as ordered. If PO intake low, will consider nutrition supplements 2. MD to consider vit C and zinc for wound healing 3. Monitor PO intake, wt, labs and skin integrity 4. F/U as moderate risk in 3-5 days, 32-3/4, PO check 10/17 Expected Outcomes/Goals Expected Outcomes/Goals 1. PO intake to meet at least 75% of nutritional needs. 2. Wt stability, skin to remain intact, labs to approach WNL.
--- NOTE | 2017-10-16 19:58 | General Progress Note ---
Subjective - Review of Systems Service Date: 10/16/17 Subjective: awake, verbal, still confused Objective - Results Result Diagrams: 10/16/17 09:11 10/16/17 09:11 Recent Labs: Laboratory Last Values WBC 6.7 Th/cmm (4.8-10.8) D 10/16/17 09:11 RBC 4.73 Mil/cmm (3.80-5.80) 10/16/17 09:11 Hgb 13.7 gm/dL (12-16) 10/16/17 09:11 Hct 42.8 % (41.0-60) 10/16/17 09:11 MCV 90.5 fl (80-99) 10/16/17 09:11 MCH 28.9 pg (27.0-31.0) 10/16/17 09:11 MCHC Differential 32.0 pg (28.0-36.0) 10/16/17 09:11 RDW 16.2 % (11.5-20.0) 10/16/17 09:11 Plt Count 162 Th/cmm (150-400) 10/16/17 09:11 MPV 9.7 fl 10/16/17 09:11 Neutrophils % 72.2 % (40.0-80.0) 10/16/17 09:11 Lymphocytes % 19.2 % (20.0-50.0) L 10/16/17 09:11 Monocytes % 5.9 % (2.0-10.0) 10/16/17 09:11 Eosinophils % 1.5 % (0.0-5.0) 10/16/17 09:11 Basophils % 1.2 % (0.0-2.0) 10/16/17 09:11 Eos Smear Source URINE 10/15/17 03:00 Eos Smear Total Cells FEW EOSINOPHILS SEEN (NONE SEEN) 10/15/17 03:00 PT 10.5 SECONDS (9.5-11.5) 10/14/17 06:00 INR 1.01 (0.5-1.4) 10/14/17 06:00 PTT (Actin FS) 25.3 SECONDS (26.0-38.0) L 10/14/17 06:00 Sodium 145 mEq/L (136-145) 10/16/17 09:11 Potassium 4.0 mEq/L (3.5-5.1) 10/16/17 09:11 Chloride 113 mEq/L (98-107) H 10/16/17 09:11 Carbon Dioxide 28.4 mEq/L (21.0-31.0) 10/16/17 09:11 Anion Gap 7.6 (7.0-16.0) 10/16/17 09:11 BUN 27 mg/dL (7-25) H 10/16/17 09:11 Creatinine 1.3 mg/dL (0.7-1.3) 10/16/17 09:11 Est GFR ( Amer) TNP 10/16/17 09:11 Est GFR (Non-Af Amer) TNP 10/16/17 09:11 BUN/Creatinine Ratio 20.8 10/16/17 09:11 Glucose 298 mg/dL (70-105) H 10/16/17 09:11 POC Glucose 306 MG/DL (70 - 105) H 10/16/17 18:35 Hemoglobin A1c % 10.5 % (4.0-6.0) H 10/14/17 05:26 Uric Acid 11.9 mg/dL (4.4-7.6) H 10/14/17 06:00 Calcium 9.1 mg/dL (8.6-10.3) 10/16/17 09:11 Phosphorus 4.1 mg/dL (2.5-5.0) 10/14/17 06:00 Magnesium 2.9 mg/dL (1.9-2.7) H 10/14/17 06:00 Total Bilirubin 0.6 mg/dL (0.3-1.0) 10/16/17 09:11 AST 17 U/L (13-39) 10/16/17 09:11 ALT 13 U/L (7-52) 10/16/17 09:11 Alkaline Phosphatase 81 U/L (34-104) 10/16/17 09:11 Total Protein 6.4 gm/dL (6.0-8.3) 10/16/17 09:11 Albumin 3.0 gm/dL (4.2-5.5) L 10/16/17 09:11 Globulin 3.4 gm/dL 10/16/17 09:11 Albumin/Globulin Ratio 0.9 (1.0-1.8) L 10/16/17 09:11 TSH 0.28 uIU/ml (0.34-5.60) L 10/14/17 06:00 Urine Source CATH 10/15/17 03:00 Urine Color BROWN 10/15/17 03:00 Urine Clarity CLOUDY (CLEAR) 10/15/17 03:00 Urine pH 5.5 (4.6 - 8.0) 10/15/17 03:00 Ur Specific [place] 1.020 (1.005-1.030) 10/15/17 03:00 Urine Protein 100 mg/dL (NEGATIVE) H 10/15/17 03:00 Urine Glucose (UA) >=1000 mg/dL (NEGATIVE) H 10/15/17 03:00 Urine Ketones TRACE mg/dL (NEGATIVE) 10/15/17 03:00 Urine Blood LARGE (NEGATIVE) H 10/15/17 03:00 Urine Nitrate NEGATIVE (NEGATIVE) 10/15/17 03:00 Urine Bilirubin SMALL (NEGATIVE) H 10/15/17 03:00 Urine Ictotest NEGATIVE (NEGATIVE) 10/15/17 03:00 Urine Urobilinogen 0.2 E.U./dL (0.2 - 1.0) 10/15/17 03:00 Ur Leukocyte Esterase TRACE (NEGATIVE) H 10/15/17 03:00 Urine RBC >100 /hpf (0-5) H 10/15/17 03:00 Urine WBC >100 /hpf (0-5) H 10/15/17 03:00 Ur Epithelial Cells OCCASIONAL /lpf (FEW) 10/15/17 03:00 Urine Bacteria MODERATE /hpf (NONE SEEN) H 10/15/17 03:00 Ur Random Sodium 39 mmol/L 10/15/17 03:00 Urine Creatinine 136.0 mg/dl (39.0-259.0) 10/15/17 03:00 - Physical Exam Vitals and I&O: Vital Signs Temp 97.4 F 10/16/17 08:00 Pulse 97 10/16/17 08:00 Resp 18 10/16/17 08:00 BP 157/89 10/16/17 08:00 Pulse Ox 98 10/16/17 08:00 Intake & Output 10/16/17 10/16/17 10/17/17 06:59 18:59 06:59 Intake Total 580 500 Output Total 400 Balance 580 100 Weight (lbs) 78.018 kg 78.018 kg Intake: Intake, IV Amount 100 Levofloxacin 500mg/100mL 100 500 mg In 100 ml @ 100 mls/hr IV Q24HR [facility] Rx#: [id number] Oral 480 500 Output: Urine 400 Other: # Voids 4 # Bowel Movements 1 Active Medications: Current Medications Acetaminophen (Tylenol) 650 mg PO Q6HR PRN PRN Reason: mild to moderate pain Stop: 12/11/17 19:27 Last Admin: 10/16/17 03:51 Dose: 650 mg Acetaminophen/Hydrocodone Bitart ([place] 5mg/325mg) 1 tab PO Q6H PRN PRN Reason: Pain (Moderate) Stop: 12/15/17 08:21 Allopurinol (Zyloprim) 100 mg PO DAILY [facility] Stop: 12/12/17 08:59 Last Admin: 10/16/17 09:55 Dose: Not Given [place] Oil/[place]izen [place] Balsam/Trypsin (Venelex) 1 appl TP DAILY [facility] Stop: 12/12/17 15:59 Last Admin: 10/16/17 09:55 Dose: Not Given Clonazepam (Klonopin) 1 mg PO BID [facility] PRN Reason: Protocol Stop: 12/15/17 08:59 Last Admin: 10/16/17 18:53 Dose: Not Given Famotidine (Pepcid) 20 mg PO BID [facility] Stop: 12/12/17 08:59 Last Admin: 10/16/17 18:53 Dose: Not Given Heparin Sodium (Porcine) (Heparin) 5,000 units SUBQ Q12HR [facility] PRN Reason: Protocol Stop: 12/11/17 20:59 Last Admin: 10/16/17 09:56 Dose: Not Given Levofloxacin (Levaquin Pb) 500 mg in 100 mls @ 100 mls/hr IV Q24HR [facility] Stop: 12/14/17 05:59 Last Infusion: 10/16/17 06:03 Dose: Infused Insulin Aspart (Novolog Insulin Sliding Scale) 0 units SUBQ ACHS [facility] PRN Reason: Protocol Stop: 12/11/17 20:59 Last Admin: 10/16/17 18:40 Dose: 8 units Insulin Detemir (Levemir Insulin) 10 units SUBQ DAILY [facility] PRN Reason: Protocol Stop: 12/14/17 08:59 Last Admin: 10/16/17 09:56 Dose: Not Given Lorazepam (Ativan) 0.5 mg PO Q6HR PRN; Protocol PRN Reason: agitation Stop: 12/11/17 19:27 Last Admin: 10/16/17 05:15 Dose: 0.5 mg Magnesium Hydroxide (Milk Of Magnesia) 30 ml PO HS PRN PRN Reason: Constipation Stop: 12/11/17 19:27 Metoprolol Succinate (Toprol Xl) 25 mg PO BID [facility] Stop: 12/12/17 16:59 Last Admin: 10/16/17 18:53 Dose: Not Given Miscellaneous (Clinical Monitoring) 1 ea MC PRN PRN PRN Reason: RENAL Stop: 12/12/17 10:33 Olanzapine (Zyprexa Zydis) 10 mg PO BID [facility] PRN Reason: Protocol Stop: 12/15/17 06:50 Last Admin: 10/16/17 18:53 Dose: Not Given Zolpidem Tartrate (Ambien) 5 mg PO HS PRN PRN Reason: insomnia Stop: 12/11/17 19:27 Last Admin: 10/15/17 00:10 Dose: 5 mg General: Alert, Oriented x3 HEENT: Atraumatic, PERRLA Neck: Supple Cardiovascular: Regular rate, Normal S1, Normal S2 Lungs: Clear to auscultation Abdomen: Bowel sounds, Soft Extremities: no Clubbing, no Cyanosis, no Edema Neurological: Sensation intact Skin: Rash Psych/Mental Status: Mood NL - Procedures Procedures: Procedures Procedure Code Date JEWEL MUSC/FASCIA 20 SQ CM/< 80550 10/12/17 EXCISION OF RIGHT HIP MUSCLE, OPEN APPROACH [id number] 10/12/17 Assessment/Plan - Assessment Assessment: KEN on CKD Stage 4 decub ulcer Severe dehydration Ess HTN Type 2 DM Psychosis - Plan Plan: Lab - Result Diagrams 10/14/17 06:00 10/14/17 06:00 Current Medications Acetaminophen (Tylenol) 650 mg PO Q6HR PRN PRN Reason: mild to moderate pain Stop: 12/11/17 19:27 Allopurinol (Zyloprim) 100 mg PO DAILY [facility] Stop: 12/12/17 08:59 Last Admin: 10/14/17 10:00 Dose: Not Given [place] Oil/[place]izen [place] Balsam/Trypsin (Venelex) 1 appl TP DAILY [facility] Stop: 12/12/17 15:59 Last Admin: 10/14/17 10:00 Dose: 1 appl Famotidine (Pepcid) 20 mg PO BID [facility] Stop: 12/12/17 08:59 Last Admin: 10/14/17 18:22 Dose: 20 mg Heparin Sodium (Porcine) (Heparin) 5,000 units SUBQ Q12HR [facility] PRN Reason: Protocol Stop: 12/11/17 20:59 Last Admin: 10/14/17 07:50 Dose: Not Given Ceftriaxone Sodium 1 gm/ (Sodium Chloride) 50 mls @ 100 mls/hr IV Q24HR [facility] Stop: 12/11/17 16:44 Last Admin: 10/14/17 17:45 Dose: 100 mls/hr Insulin Aspart (Novolog Insulin Sliding Scale) 0 units SUBQ ACHS [facility] PRN Reason: Protocol Stop: 12/11/17 20:59 Last Admin: 10/14/17 18:23 Dose: 6 units Lorazepam (Ativan) 0.5 mg PO Q6HR PRN; Protocol PRN Reason: agitation Stop: 12/11/17 19:27 Magnesium Hydroxide (Milk Of Magnesia) 30 ml PO HS PRN PRN Reason: Constipation Stop: 12/11/17 19:27 Metoprolol Succinate (Toprol Xl) 25 mg PO BID [facility] Stop: 12/12/17 16:59 Last Admin: 10/14/17 18:23 Dose: 25 mg Miscellaneous (Clinical Monitoring) 1 ea MC PRN PRN PRN Reason: RENAL Stop: 12/12/17 10:33 Olanzapine (Zyprexa Zydis) 5 mg PO BID [facility] PRN Reason: Protocol Stop: 12/13/17 16:59 Zolpidem Tartrate (Ambien) 5 mg PO HS PRN PRN Reason: insomnia Stop: 12/11/17 19:27 Lab - Result Diagrams 10/16/17 09:11 10/16/17 09:11 Na down to 145 Kidney fnc gradually improving agree w/ Allopurinol f/u electrolytes, agree w/ Levaquin continue hydration BS still OOC increase Detemir Nutritional Asmnt/Malnutr-PDOC - Dietary Evaluation Malnutrition Findings (Please click <Entered> for more info): Nutritional Asmnt/Malnutrition Start: 10/14/17 17: 10 Text: Status: Complete Freq: Document 10/14/17 17:13 LCDEMIG (Rec: 10/14/17 17:25 [email or web address]) Nutritional Asmnt/Malnutrition Patient General Information Nutritional Screening High Risk Consult Diagnosis pressure ulcer, hyperglycemia, dehydration Pertinent Medical Hx/Surgical Hx DM, dementia, depression, psychosis, schizophrenia, chronic renal insuff Subjective Information Consult received for unstageble pressure ulcer on , high BG on 10/12. Per records, PO intake 50-75%. Pt was on NPO today for surgery- excisional debridement, application of wound VAC Current Diet Order/ Nutrition Support pureed, CCHO 60gm Pertinent Medications novolog Pertinent Labs 10/14 Na 152, K 4.6, BUN 56, Cr 1.8, Glucose 262, POC 236-246 , Mg 2.9 Nutritional Hx/Data Height 1.8 m Height (Calculated Centimeters) 180.3 Current Weight (lbs) 70.76 kg Weight (Calculated Kilograms) 70.8 Weight (Calculated Grams) 90093.4 [place] Body Weight 172 % [place] Body Weight 91 Body Mass Index (BMI) 21.7 Weight Status Approriate GI Symptoms GI Symptoms None Last BM 10/13 Difficult in: None Skin Integrity/Comment: scar to right upper back, decubitus ulcer to buttocks Current %PO Fair (50-74%) Estimated Nutritional Goals BEE in Kcals: Using Current wt Calories/Kcals/Kg 27-32 Kcals Calculated 6477-9401 Protein: Using Current wt Protein g/k-1.2 Protein Calculated 71-85 Fluid: ml 1917-2130ml (1ml/kcal) Nutritional Problem 2. Problem Problem altered nutrition related lab values Etiology hx of DM Signs/Symptoms: Glucose 262, POC 236-246 1. Problem Problem increased nutrition needs ( calorie and protein) Etiology increased metabolic demand for wound healing Signs/Symptoms: decubitus ulcer and surgery Intervention/Recommendation Comments 1. Continue with current diet as ordered. If PO intake low, will consider nutrition supplements 2. MD to consider vit C and zinc for wound healing 3. Monitor PO intake, wt, labs and skin integrity 4. F/U as moderate risk in 3-5 days, 3/2-3/4, PO check 3/2 Expected Outcomes/Goals Expected Outcomes/Goals 1. PO intake to meet at least 75% of nutritional needs. 2. Wt stability, skin to remain intact, labs to approach WNL.
[2017-10-16] MEDS ORDERED: Insulin Detemir 100 units/mL 10mL Vial SUBQ SCH (19:59)
[2017-10-17] MEDS: Levofloxacin 500mg/100mL 500 MG/100 ML BAG IV SCH (05:46)
[2017-10-17 06:54] LABS: ANION GAP 9.1 (7.0-16.0); BUN - UREA NITROGEN 21 mg/dL (7-25); CALCIUM SERUM 9.2 mg/dL (8.6-10.3); CARBON DIOXIDE 28.1 mEq/L (21.0-31.0); CHLORIDE 114 mEq/L (98-107); CREATININE - SERUM 1.2 mg/dL (0.7-1.3); GLUCOSE 293 mg/dL (70-105); POTASSIUM SERUM 5.2 mEq/L (3.5-5.1); SODIUM SERUM 146 mEq/L (136-145)
[2017-10-17] MEDS: OLANZapine 5 mg Oral Disintegrating Tab PO SCH ×2 (08:26→16:45)
--- NOTE | 2017-10-17 08:30 | General Progress Note ---
Subjective - Review of Systems Service Date: 10/17/17 Subjective: Patient was seen and examined. Oral Intake has improved. still confused. no acute distress. Objective - Results Result Diagrams: 10/16/17 09:11 10/17/17 06:06 Recent Labs: Laboratory Last Values WBC 6.7 Th/cmm (4.8-10.8) D 10/16/17 09:11 RBC 4.73 Mil/cmm (3.80-5.80) 10/16/17 09:11 Hgb 13.7 gm/dL (12-16) 10/16/17 09:11 Hct 42.8 % (41.0-60) 10/16/17 09:11 MCV 90.5 fl (80-99) 10/16/17 09:11 MCH 28.9 pg (27.0-31.0) 10/16/17 09:11 MCHC Differential 32.0 pg (28.0-36.0) 10/16/17 09:11 RDW 16.2 % (11.5-20.0) 10/16/17 09:11 Plt Count 162 Th/cmm (150-400) 10/16/17 09:11 MPV 9.7 fl 10/16/17 09:11 Neutrophils % 72.2 % (40.0-80.0) 10/16/17 09:11 Lymphocytes % 19.2 % (20.0-50.0) L 10/16/17 09:11 Monocytes % 5.9 % (2.0-10.0) 10/16/17 09:11 Eosinophils % 1.5 % (0.0-5.0) 10/16/17 09:11 Basophils % 1.2 % (0.0-2.0) 10/16/17 09:11 Eos Smear Source URINE 10/15/17 03:00 Eos Smear Total Cells FEW EOSINOPHILS SEEN (NONE SEEN) 10/15/17 03:00 PT 10.5 SECONDS (9.5-11.5) 10/14/17 06:00 INR 1.01 (0.5-1.4) 10/14/17 06:00 PTT (Actin FS) 25.3 SECONDS (26.0-38.0) L 10/14/17 06:00 Sodium 146 mEq/L (136-145) H 10/17/17 06:06 Potassium 5.2 mEq/L (3.5-5.1) H 10/17/17 06:06 Chloride 114 mEq/L (98-107) H 10/17/17 06:06 Carbon Dioxide 28.1 mEq/L (21.0-31.0) 10/17/17 06:06 Anion Gap 9.1 (7.0-16.0) 10/17/17 06:06 BUN 21 mg/dL (7-25) 10/17/17 06:06 Creatinine 1.2 mg/dL (0.7-1.3) 10/17/17 06:06 Est GFR ( Amer) TNP 10/17/17 06:06 Est GFR (Non-Af Amer) TNP 10/17/17 06:06 BUN/Creatinine Ratio 17.5 10/17/17 06:06 Glucose 293 mg/dL (70-105) H 10/17/17 06:06 POC Glucose 251 MG/DL (70 - 105) H 10/17/17 07:04 Hemoglobin A1c % 10.5 % (4.0-6.0) H 10/14/17 05:26 Uric Acid 11.9 mg/dL (4.4-7.6) H 10/14/17 06:00 Calcium 9.2 mg/dL (8.6-10.3) 10/17/17 06:06 Phosphorus 4.1 mg/dL (2.5-5.0) 10/14/17 06:00 Magnesium 2.9 mg/dL (1.9-2.7) H 10/14/17 06:00 Total Bilirubin 0.6 mg/dL (0.3-1.0) 10/16/17 09:11 AST 17 U/L (13-39) 10/16/17 09:11 ALT 13 U/L (7-52) 10/16/17 09:11 Alkaline Phosphatase 81 U/L (34-104) 10/16/17 09:11 Total Protein 6.4 gm/dL (6.0-8.3) 10/16/17 09:11 Albumin 3.0 gm/dL (4.2-5.5) L 10/16/17 09:11 Globulin 3.4 gm/dL 10/16/17 09:11 Albumin/Globulin Ratio 0.9 (1.0-1.8) L 10/16/17 09:11 TSH 0.28 uIU/ml (0.34-5.60) L 10/14/17 06:00 Urine Source CATH 10/15/17 03:00 Urine Color BROWN 10/15/17 03:00 Urine Clarity CLOUDY (CLEAR) 10/15/17 03:00 Urine pH 5.5 (4.6 - 8.0) 10/15/17 03:00 Ur Specific [place] 1.020 (1.005-1.030) 10/15/17 03:00 Urine Protein 100 mg/dL (NEGATIVE) H 10/15/17 03:00 Urine Glucose (UA) >=1000 mg/dL (NEGATIVE) H 10/15/17 03:00 Urine Ketones TRACE mg/dL (NEGATIVE) 10/15/17 03:00 Urine Blood LARGE (NEGATIVE) H 10/15/17 03:00 Urine Nitrate NEGATIVE (NEGATIVE) 10/15/17 03:00 Urine Bilirubin SMALL (NEGATIVE) H 10/15/17 03:00 Urine Ictotest NEGATIVE (NEGATIVE) 10/15/17 03:00 Urine Urobilinogen 0.2 E.U./dL (0.2 - 1.0) 10/15/17 03:00 Ur Leukocyte Esterase TRACE (NEGATIVE) H 10/15/17 03:00 Urine RBC >100 /hpf (0-5) H 10/15/17 03:00 Urine WBC >100 /hpf (0-5) H 10/15/17 03:00 Ur Epithelial Cells OCCASIONAL /lpf (FEW) 10/15/17 03:00 Urine Bacteria MODERATE /hpf (NONE SEEN) H 10/15/17 03:00 Ur Random Sodium 39 mmol/L 10/15/17 03:00 Urine Creatinine 136.0 mg/dl (39.0-259.0) 10/15/17 03:00 - Physical Exam Vitals and I&O: Vital Signs Temp 97.6 F 10/17/17 04:00 Pulse 98 10/17/17 08:25 Resp 18 10/17/17 04:00 BP 153/100 10/17/17 08:25 Pulse Ox 98 10/17/17 04:00 Intake & Output 10/16/17 10/17/17 10/17/17 18:59 06:59 18:59 Intake Total 500 850 Output Total 400 Balance 100 850 Weight (lbs) 78.018 kg 78.018 kg Intake: Intake, IV Amount 100 Levofloxacin 500mg/100mL 100 500 mg In 100 ml @ 100 mls/hr IV Q24HR [facility] Rx#: [id number] Oral 500 750 Output: Urine 400 Other: # Voids 2 # Bowel Movements 1 1 Active Medications: Current Medications Acetaminophen (Tylenol) 650 mg PO Q6HR PRN PRN Reason: mild to moderate pain Stop: 12/11/17 19:27 Last Admin: 10/16/17 03:51 Dose: 650 mg Acetaminophen/Hydrocodone Bitart ([place] 5mg/325mg) 1 tab PO Q6H PRN PRN Reason: Pain (Moderate) Stop: 12/15/17 08:21 Allopurinol (Zyloprim) 100 mg PO DAILY [facility] Stop: 12/12/17 08:59 Last Admin: 10/17/17 08:25 Dose: 100 mg [place] Oil/[place] Balsam/Trypsin (Venelex) 1 appl TP DAILY [facility] Stop: 12/12/17 15:59 Last Admin: 10/16/17 09:55 Dose: Not Given Clonazepam (Klonopin) 1 mg PO BID [facility] PRN Reason: Protocol Stop: 12/15/17 08:59 Last Admin: 10/17/17 08:25 Dose: 1 mg Famotidine (Pepcid) 20 mg PO BID [facility] Stop: 12/12/17 08:59 Last Admin: 10/17/17 08:26 Dose: 20 mg Heparin Sodium (Porcine) (Heparin) 5,000 units SUBQ Q12HR [facility] PRN Reason: Protocol Stop: 12/11/17 20:59 Last Admin: 10/16/17 22:24 Dose: 5,000 units Levofloxacin (Levaquin Pb) 500 mg in 100 mls @ 100 mls/hr IV Q24HR [facility] Stop: 12/14/17 05:59 Last Infusion: 10/17/17 06:56 Dose: Infused Insulin Aspart (Novolog Insulin Sliding Scale) 0 units SUBQ ACHS [facility] PRN Reason: Protocol Stop: 12/11/17 20:59 Last Admin: 10/16/17 22:23 Dose: Not Given Insulin Detemir (Levemir Insulin) 14 units SUBQ DAILY [facility] PRN Reason: Protocol Stop: 12/15/17 19:58 Lorazepam (Ativan) 0.5 mg PO Q6HR PRN; Protocol PRN Reason: agitation Stop: 12/11/17 19:27 Last Admin: 10/17/17 04:38 Dose: 0.5 mg Magnesium Hydroxide (Milk Of Magnesia) 30 ml PO HS PRN PRN Reason: Constipation Stop: 12/11/17 19:27 Metoprolol Succinate (Toprol Xl) 25 mg PO BID [facility] Stop: 12/12/17 16:59 Last Admin: 10/17/17 08:25 Dose: 25 mg Miscellaneous (Clinical Monitoring) 1 ea MC PRN PRN PRN Reason: RENAL Stop: 12/12/17 10:33 Olanzapine (Zyprexa Zydis) 10 mg PO BID [facility] PRN Reason: Protocol Stop: 12/15/17 06:50 Last Admin: 10/16/17 18:53 Dose: Not Given Zolpidem Tartrate (Ambien) 5 mg PO HS PRN PRN Reason: insomnia Stop: 12/11/17 19:27 Last Admin: 10/15/17 00:10 Dose: 5 mg General: Alert, Oriented x3 HEENT: Atraumatic, PERRLA Neck: Supple Cardiovascular: Regular rate, Normal S1, Normal S2 Lungs: Clear to auscultation Abdomen: Bowel sounds, Soft Extremities: no Clubbing, no Cyanosis, no Edema Neurological: Sensation intact Skin: Rash Psych/Mental Status: Mood NL - Procedures Procedures: Procedures Procedure Code Date JEWEL MUSC/FASCIA 20 SQ CM/< 91844 10/12/17 EXCISION OF RIGHT HIP MUSCLE, OPEN APPROACH [id number] 10/12/17 Assessment/Plan - Assessment Assessment: hypernatremia prerenal azotemia hyperglycemia depression/anxiety gout dementia schizophrenia S/P wound debridement of sacral decubitus UTI discharge planning. KEN on CKD hyperkalemia - Plan Plan: will order repeat cmp,cbc tomorrow AM renal consult -- Dr. Sharp sacral decubitus ... will order Gen Surgical consult -- Dr. Greene for possible wound debridement Gout ... continue allopurinol 100mg PO daily continue wound vac. continue hydrocodone PO for pain control. Nutritional Asmnt/Malnutr-PDOC - Dietary Evaluation Malnutrition Findings (Please click <Entered> for more info): Nutritional Asmnt/Malnutrition Start: 10/14/17 17: 10 Text: Status: Complete Freq: Document 10/14/17 17:13 GREY (Rec: 10/14/17 17:25 GREY [email or web address]) Nutritional Asmnt/Malnutrition Patient General Information Nutritional Screening High Risk Consult Diagnosis pressure ulcer, hyperglycemia, dehydration Pertinent Medical Hx/Surgical Hx DM, dementia, depression, psychosis, schizophrenia, chronic renal insuff Subjective Information Consult received for unstageble pressure ulcer on , high BG on 10/12. Per records, PO intake 50-75%. Pt was on NPO today for surgery- excisional debridement, application of wound VAC Current Diet Order/ Nutrition Support pureed, CCHO 60gm Pertinent Medications novolog Pertinent Labs 10/14 Na 152, K 4.6, BUN 56, Cr 1.8, Glucose 262, POC 236-246 , Mg 2.9 Nutritional Hx/Data Height 1.8 m Height (Calculated Centimeters) 180.3 Current Weight (lbs) 70.76 kg Weight (Calculated Kilograms) 70.8 Weight (Calculated Grams) 40915.4 [place] Body Weight 172 % [place] Body Weight 91 Body Mass Index (BMI) 21.7 Weight Status Approriate GI Symptoms GI Symptoms None Last BM 10/13 Difficult in: None Skin Integrity/Comment: scar to right upper back, decubitus ulcer to buttocks Current %PO Fair (50-74%) Estimated Nutritional Goals BEE in Kcals: Using Current wt Calories/Kcals/Kg 27-32 Kcals Calculated 5885-8668 Protein: Using Current wt Protein g/k-1.2 Protein Calculated 71-85 Fluid: ml 1917-2130ml (1ml/kcal) Nutritional Problem 2. Problem Problem altered nutrition related lab values Etiology hx of DM Signs/Symptoms: Glucose 262, POC 236-246 1. Problem Problem increased nutrition needs ( calorie and protein) Etiology increased metabolic demand for wound healing Signs/Symptoms: decubitus ulcer and surgery Intervention/Recommendation Comments 1. Continue with current diet as ordered. If PO intake low, will consider nutrition supplements 2. MD to consider vit C and zinc for wound healing 3. Monitor PO intake, wt, labs and skin integrity 4. F/U as moderate risk in 3-5 days, /-3/4, PO check 3/2 Expected Outcomes/Goals Expected Outcomes/Goals 1. PO intake to meet at least 75% of nutritional needs. 2. Wt stability, skin to remain intact, labs to approach WNL.
[2017-10-17] MEDS: Venelex 60gm Tube TP SCH (08:32)
[2017-10-17] MEDS: INSULIN ASPART SLIDING SCALE 100 UNITS/ML UNIT SUBQ SCH ×4 (08:33→20:19)
--- NOTE | 2017-10-17 14:46 | General Progress Note ---
Subjective - Review of Systems Service Date: 10/17/17 Events since last encounter: patient scratches frequently, very restless, unable to keep wound vac in place DC wound vac and use Venelex for local wound care Objective - Results Result Diagrams: 10/16/17 09:11 10/17/17 06:06 Recent Labs: Laboratory Last Values WBC 6.7 Th/cmm (4.8-10.8) D 10/16/17 09:11 RBC 4.73 Mil/cmm (3.80-5.80) 10/16/17 09:11 Hgb 13.7 gm/dL (12-16) 10/16/17 09:11 Hct 42.8 % (41.0-60) 10/16/17 09:11 MCV 90.5 fl (80-99) 10/16/17 09:11 MCH 28.9 pg (27.0-31.0) 10/16/17 09:11 MCHC Differential 32.0 pg (28.0-36.0) 10/16/17 09:11 RDW 16.2 % (11.5-20.0) 10/16/17 09:11 Plt Count 162 Th/cmm (150-400) 10/16/17 09:11 MPV 9.7 fl 10/16/17 09:11 Neutrophils % 72.2 % (40.0-80.0) 10/16/17 09:11 Lymphocytes % 19.2 % (20.0-50.0) L 10/16/17 09:11 Monocytes % 5.9 % (2.0-10.0) 10/16/17 09:11 Eosinophils % 1.5 % (0.0-5.0) 10/16/17 09:11 Basophils % 1.2 % (0.0-2.0) 10/16/17 09:11 Eos Smear Source URINE 10/15/17 03:00 Eos Smear Total Cells FEW EOSINOPHILS SEEN (NONE SEEN) 10/15/17 03:00 PT 10.5 SECONDS (9.5-11.5) 10/14/17 06:00 INR 1.01 (0.5-1.4) 10/14/17 06:00 PTT (Actin FS) 25.3 SECONDS (26.0-38.0) L 10/14/17 06:00 Sodium 146 mEq/L (136-145) H 10/17/17 06:06 Potassium 5.2 mEq/L (3.5-5.1) H 10/17/17 06:06 Chloride 114 mEq/L (98-107) H 10/17/17 06:06 Carbon Dioxide 28.1 mEq/L (21.0-31.0) 10/17/17 06:06 Anion Gap 9.1 (7.0-16.0) 10/17/17 06:06 BUN 21 mg/dL (7-25) 10/17/17 06:06 Creatinine 1.2 mg/dL (0.7-1.3) 10/17/17 06:06 Est GFR ( Amer) TNP 10/17/17 06:06 Est GFR (Non-Af Amer) TNP 10/17/17 06:06 BUN/Creatinine Ratio 17.5 10/17/17 06:06 Glucose 293 mg/dL (70-105) H 10/17/17 06:06 POC Glucose 219 MG/DL (70 - 105) H 10/17/17 12:03 Hemoglobin A1c % 10.5 % (4.0-6.0) H 10/14/17 05:26 Uric Acid 11.9 mg/dL (4.4-7.6) H 10/14/17 06:00 Calcium 9.2 mg/dL (8.6-10.3) 10/17/17 06:06 Phosphorus 4.1 mg/dL (2.5-5.0) 10/14/17 06:00 Magnesium 2.9 mg/dL (1.9-2.7) H 10/14/17 06:00 Total Bilirubin 0.6 mg/dL (0.3-1.0) 10/16/17 09:11 AST 17 U/L (13-39) 10/16/17 09:11 ALT 13 U/L (7-52) 10/16/17 09:11 Alkaline Phosphatase 81 U/L (34-104) 10/16/17 09:11 Total Protein 6.4 gm/dL (6.0-8.3) 10/16/17 09:11 Albumin 3.0 gm/dL (4.2-5.5) L 10/16/17 09:11 Globulin 3.4 gm/dL 10/16/17 09:11 Albumin/Globulin Ratio 0.9 (1.0-1.8) L 10/16/17 09:11 TSH 0.28 uIU/ml (0.34-5.60) L 10/14/17 06:00 Urine Source CATH 10/15/17 03:00 Urine Color BROWN 10/15/17 03:00 Urine Clarity CLOUDY (CLEAR) 10/15/17 03:00 Urine pH 5.5 (4.6 - 8.0) 10/15/17 03:00 Ur Specific [place] 1.020 (1.005-1.030) 10/15/17 03:00 Urine Protein 100 mg/dL (NEGATIVE) H 10/15/17 03:00 Urine Glucose (UA) >=1000 mg/dL (NEGATIVE) H 10/15/17 03:00 Urine Ketones TRACE mg/dL (NEGATIVE) 10/15/17 03:00 Urine Blood LARGE (NEGATIVE) H 10/15/17 03:00 Urine Nitrate NEGATIVE (NEGATIVE) 10/15/17 03:00 Urine Bilirubin SMALL (NEGATIVE) H 10/15/17 03:00 Urine Ictotest NEGATIVE (NEGATIVE) 10/15/17 03:00 Urine Urobilinogen 0.2 E.U./dL (0.2 - 1.0) 10/15/17 03:00 Ur Leukocyte Esterase TRACE (NEGATIVE) H 10/15/17 03:00 Urine RBC >100 /hpf (0-5) H 10/15/17 03:00 Urine WBC >100 /hpf (0-5) H 10/15/17 03:00 Ur Epithelial Cells OCCASIONAL /lpf (FEW) 10/15/17 03:00 Urine Bacteria MODERATE /hpf (NONE SEEN) H 10/15/17 03:00 Urine Osmolality 749 mOsmol/kg 10/15/17 03:00 Ur Random Sodium 39 mmol/L 10/15/17 03:00 Urine Creatinine 136.0 mg/dl (39.0-259.0) 10/15/17 03:00 - Physical Exam Vitals and I&O: Vital Signs Temp 97.6 F 10/17/17 04:00 Pulse 98 10/17/17 08:25 Resp 18 10/17/17 08:00 BP 153/100 10/17/17 08:25 Pulse Ox 98 10/17/17 04:00 Intake & Output 10/16/17 10/17/17 10/17/17 18:59 06:59 18:59 Intake Total 500 850 Output Total 400 Balance 100 850 Weight (lbs) 78.018 kg 78.018 kg Intake: Intake, IV Amount 100 Levofloxacin 500mg/100mL 100 500 mg In 100 ml @ 100 mls/hr IV Q24HR [facility] Rx#: [id number] Oral 500 750 Output: Urine 400 Other: # Voids 2 # Bowel Movements 1 1 Active Medications: Current Medications Acetaminophen (Tylenol) 650 mg PO Q6HR PRN PRN Reason: mild to moderate pain Stop: 12/11/17 19:27 Last Admin: 10/16/17 03:51 Dose: 650 mg Acetaminophen/Hydrocodone Bitart ([place] 5mg/325mg) 1 tab PO Q6H PRN PRN Reason: Pain (Moderate) Stop: 12/15/17 08:21 Allopurinol (Zyloprim) 100 mg PO DAILY [facility] Stop: 12/12/17 08:59 Last Admin: 10/17/17 08:25 Dose: 100 mg [place] Oil/[place] Balsam/Trypsin (Venelex) 1 appl TP DAILY [facility] Stop: 12/12/17 15:59 Last Admin: 10/17/17 08:32 Dose: 1 appl Clonazepam (Klonopin) 1 mg PO BID [facility] PRN Reason: Protocol Stop: 12/15/17 08:59 Last Admin: 10/17/17 08:25 Dose: 1 mg Famotidine (Pepcid) 20 mg PO BID [facility] Stop: 12/12/17 08:59 Last Admin: 10/17/17 08:26 Dose: 20 mg Heparin Sodium (Porcine) (Heparin) 5,000 units SUBQ Q12HR [facility] PRN Reason: Protocol Stop: 12/11/17 20:59 Last Admin: 10/17/17 08:26 Dose: 5,000 units Levofloxacin (Levaquin Pb) 500 mg in 100 mls @ 100 mls/hr IV Q24HR [facility] Stop: 12/14/17 05:59 Last Infusion: 10/17/17 06:56 Dose: Infused Insulin Aspart (Novolog Insulin Sliding Scale) 0 units SUBQ ACHS [facility] PRN Reason: Protocol Stop: 12/11/17 20:59 Last Admin: 10/17/17 12:37 Dose: 4 units Insulin Detemir (Levemir Insulin) 14 units SUBQ DAILY [facility] PRN Reason: Protocol Stop: 12/15/17 19:58 Last Admin: 10/17/17 08:36 Dose: 14 unit Lorazepam (Ativan) 0.5 mg PO Q6HR PRN; Protocol PRN Reason: agitation Stop: 12/11/17 19:27 Last Admin: 10/17/17 04:38 Dose: 0.5 mg Magnesium Hydroxide (Milk Of Magnesia) 30 ml PO HS PRN PRN Reason: Constipation Stop: 12/11/17 19:27 Metoprolol Succinate (Toprol Xl) 25 mg PO BID [facility] Stop: 12/12/17 16:59 Last Admin: 10/17/17 08:25 Dose: 25 mg Miscellaneous (Clinical Monitoring) 1 ea MC PRN PRN PRN Reason: RENAL Stop: 12/12/17 10:33 Olanzapine (Zyprexa Zydis) 10 mg PO BID [facility] PRN Reason: Protocol Stop: 12/15/17 06:50 Last Admin: 10/17/17 08:26 Dose: 10 mg Zolpidem Tartrate (Ambien) 5 mg PO HS PRN PRN Reason: insomnia Stop: 12/11/17 19:27 Last Admin: 10/15/17 00:10 Dose: 5 mg General: Alert, Oriented x3 HEENT: Atraumatic, PERRLA Neck: Supple Cardiovascular: Regular rate, Normal S1, Normal S2 Lungs: Clear to auscultation Abdomen: Bowel sounds, Soft Extremities: no Clubbing, no Cyanosis, no Edema Neurological: Sensation intact Skin: Rash Psych/Mental Status: Mood NL - Procedures Procedures: Procedures Procedure Code Date JEWEL MUSC/FASCIA 20 SQ CM/< 98706 10/12/17 EXCISION OF RIGHT HIP MUSCLE, OPEN APPROACH [id number] 10/12/17 Nutritional Asmnt/Malnutr-PDOC - Dietary Evaluation Malnutrition Findings (Please click <Entered> for more info): Nutritional Asmnt/Malnutrition Start: 10/14/17 17: 10 Text: Status: Complete Freq: Document 10/14/17 17:13 GREY (Rec: 10/14/17 17:25 [id number] Nutritional Asmnt/Malnutrition Patient General Information Nutritional Screening High Risk Consult Diagnosis pressure ulcer, hyperglycemia, dehydration Pertinent Medical Hx/Surgical Hx DM, dementia, depression, psychosis, schizophrenia, chronic renal insuff Subjective Information Consult received for unstageble pressure ulcer on , high BG on 10/12. Per records, PO intake 50-75%. Pt was on NPO today for surgery- excisional debridement, application of wound VAC Current Diet Order/ Nutrition Support pureed, CCHO 60gm Pertinent Medications novolog Pertinent Labs 10/14 Na 152, K 4.6, BUN 56, Cr 1.8, Glucose 262, POC 236-246 , Mg 2.9 Nutritional Hx/Data Height 1.8 m Height (Calculated Centimeters) 180.3 Current Weight (lbs) 70.76 kg Weight (Calculated Kilograms) 70.8 Weight (Calculated Grams) 37437.4 [place] Body Weight 172 % [place] Body Weight 91 Body Mass Index (BMI) 21.7 Weight Status Approriate GI Symptoms GI Symptoms None Last BM 10/13 Difficult in: None Skin Integrity/Comment: scar to right upper back, decubitus ulcer to buttocks Current %PO Fair (50-74%) Estimated Nutritional Goals BEE in Kcals: Using Current wt Calories/Kcals/Kg 27-32 Kcals Calculated 6268-4875 Protein: Using Current wt Protein g/k-1.2 Protein Calculated 71-85 Fluid: ml 1917-2130ml (1ml/kcal) Nutritional Problem 2. Problem Problem altered nutrition related lab values Etiology hx of DM Signs/Symptoms: Glucose 262, POC 236-246 1. Problem Problem increased nutrition needs ( calorie and protein) Etiology increased metabolic demand for wound healing Signs/Symptoms: decubitus ulcer and surgery Intervention/Recommendation Comments 1. Continue with current diet as ordered. If PO intake low, will consider nutrition supplements 2. MD to consider vit C and zinc for wound healing 3. Monitor PO intake, wt, labs and skin integrity 4. F/U as moderate risk in 3-5 days, 10/17-10/19, PO check / Expected Outcomes/Goals Expected Outcomes/Goals 1. PO intake to meet at least 75% of nutritional needs. 2. Wt stability, skin to remain intact, labs to approach WNL.
--- NOTE | 2017-10-17 15:40 | General Progress Note ---
Subjective - Review of Systems Service Date: 10/17/17 Subjective: awake, verbal, still confused Objective - Results Result Diagrams: 10/16/17 09:11 10/17/17 06:06 Recent Labs: Laboratory Last Values WBC 6.7 Th/cmm (4.8-10.8) D 10/16/17 09:11 RBC 4.73 Mil/cmm (3.80-5.80) 10/16/17 09:11 Hgb 13.7 gm/dL (12-16) 10/16/17 09:11 Hct 42.8 % (41.0-60) 10/16/17 09:11 MCV 90.5 fl (80-99) 10/16/17 09:11 MCH 28.9 pg (27.0-31.0) 10/16/17 09:11 MCHC Differential 32.0 pg (28.0-36.0) 10/16/17 09:11 RDW 16.2 % (11.5-20.0) 10/16/17 09:11 Plt Count 162 Th/cmm (150-400) 10/16/17 09:11 MPV 9.7 fl 10/16/17 09:11 Neutrophils % 72.2 % (40.0-80.0) 10/16/17 09:11 Lymphocytes % 19.2 % (20.0-50.0) L 10/16/17 09:11 Monocytes % 5.9 % (2.0-10.0) 10/16/17 09:11 Eosinophils % 1.5 % (0.0-5.0) 10/16/17 09:11 Basophils % 1.2 % (0.0-2.0) 10/16/17 09:11 Eos Smear Source URINE 10/15/17 03:00 Eos Smear Total Cells FEW EOSINOPHILS SEEN (NONE SEEN) 10/15/17 03:00 PT 10.5 SECONDS (9.5-11.5) 10/14/17 06:00 INR 1.01 (0.5-1.4) 10/14/17 06:00 PTT (Actin FS) 25.3 SECONDS (26.0-38.0) L 10/14/17 06:00 Sodium 146 mEq/L (136-145) H 10/17/17 06:06 Potassium 5.2 mEq/L (3.5-5.1) H 10/17/17 06:06 Chloride 114 mEq/L (98-107) H 10/17/17 06:06 Carbon Dioxide 28.1 mEq/L (21.0-31.0) 10/17/17 06:06 Anion Gap 9.1 (7.0-16.0) 10/17/17 06:06 BUN 21 mg/dL (7-25) 10/17/17 06:06 Creatinine 1.2 mg/dL (0.7-1.3) 10/17/17 06:06 Est GFR ( Amer) TNP 10/17/17 06:06 Est GFR (Non-Af Amer) TNP 10/17/17 06:06 BUN/Creatinine Ratio 17.5 10/17/17 06:06 Glucose 293 mg/dL (70-105) H 10/17/17 06:06 POC Glucose 219 MG/DL (70 - 105) H 10/17/17 12:03 Hemoglobin A1c % 10.5 % (4.0-6.0) H 10/14/17 05:26 Uric Acid 11.9 mg/dL (4.4-7.6) H 10/14/17 06:00 Calcium 9.2 mg/dL (8.6-10.3) 10/17/17 06:06 Phosphorus 4.1 mg/dL (2.5-5.0) 10/14/17 06:00 Magnesium 2.9 mg/dL (1.9-2.7) H 10/14/17 06:00 Total Bilirubin 0.6 mg/dL (0.3-1.0) 10/16/17 09:11 AST 17 U/L (13-39) 10/16/17 09:11 ALT 13 U/L (7-52) 10/16/17 09:11 Alkaline Phosphatase 81 U/L (34-104) 10/16/17 09:11 Total Protein 6.4 gm/dL (6.0-8.3) 10/16/17 09:11 Albumin 3.0 gm/dL (4.2-5.5) L 10/16/17 09:11 Globulin 3.4 gm/dL 10/16/17 09:11 Albumin/Globulin Ratio 0.9 (1.0-1.8) L 10/16/17 09:11 TSH 0.28 uIU/ml (0.34-5.60) L 10/14/17 06:00 Urine Source CATH 10/15/17 03:00 Urine Color BROWN 10/15/17 03:00 Urine Clarity CLOUDY (CLEAR) 10/15/17 03:00 Urine pH 5.5 (4.6 - 8.0) 10/15/17 03:00 Ur Specific [place] 1.020 (1.005-1.030) 10/15/17 03:00 Urine Protein 100 mg/dL (NEGATIVE) H 10/15/17 03:00 Urine Glucose (UA) >=1000 mg/dL (NEGATIVE) H 10/15/17 03:00 Urine Ketones TRACE mg/dL (NEGATIVE) 10/15/17 03:00 Urine Blood LARGE (NEGATIVE) H 10/15/17 03:00 Urine Nitrate NEGATIVE (NEGATIVE) 10/15/17 03:00 Urine Bilirubin SMALL (NEGATIVE) H 10/15/17 03:00 Urine Ictotest NEGATIVE (NEGATIVE) 10/15/17 03:00 Urine Urobilinogen 0.2 E.U./dL (0.2 - 1.0) 10/15/17 03:00 Ur Leukocyte Esterase TRACE (NEGATIVE) H 10/15/17 03:00 Urine RBC >100 /hpf (0-5) H 10/15/17 03:00 Urine WBC >100 /hpf (0-5) H 10/15/17 03:00 Ur Epithelial Cells OCCASIONAL /lpf (FEW) 10/15/17 03:00 Urine Bacteria MODERATE /hpf (NONE SEEN) H 10/15/17 03:00 Urine Osmolality 749 mOsmol/kg 10/15/17 03:00 Ur Random Sodium 39 mmol/L 10/15/17 03:00 Urine Creatinine 136.0 mg/dl (39.0-259.0) 10/15/17 03:00 - Physical Exam Vitals and I&O: Vital Signs Temp 98.2 F 10/17/17 12:00 Pulse 96 10/17/17 12:00 Resp 20 10/17/17 12:00 BP 137/80 10/17/17 12:00 Pulse Ox 98 10/17/17 12:00 Intake & Output 10/16/17 10/17/17 10/17/17 18:59 06:59 18:59 Intake Total 500 850 Output Total 400 Balance 100 850 Weight (lbs) 78.018 kg 78.018 kg Intake: Intake, IV Amount 100 Levofloxacin 500mg/100mL 100 500 mg In 100 ml @ 100 mls/hr IV Q24HR [facility] Rx#: [id number] Oral 500 750 Output: Urine 400 Other: # Voids 2 # Bowel Movements 1 1 Active Medications: Current Medications Acetaminophen (Tylenol) 650 mg PO Q6HR PRN PRN Reason: mild to moderate pain Stop: 12/11/17 19:27 Last Admin: 10/16/17 03:51 Dose: 650 mg Acetaminophen/Hydrocodone Bitart ([place] 5mg/325mg) 1 tab PO Q6H PRN PRN Reason: Pain (Moderate) Stop: 12/15/17 08:21 Allopurinol (Zyloprim) 100 mg PO DAILY [facility] Stop: 12/12/17 08:59 Last Admin: 10/17/17 08:25 Dose: 100 mg [place] Oil/[place]ize[place] Balsam/Trypsin (Venelex) 1 appl TP DAILY [facility] Stop: 12/12/17 15:59 Last Admin: 10/17/17 08:32 Dose: 1 appl Clonazepam (Klonopin) 1 mg PO BID I[facility] PRN Reason: Protocol Stop: 12/15/17 08:59 Last Admin: 10/17/17 08:25 Dose: 1 mg Famotidine (Pepcid) 20 mg PO BID [facility] Stop: 12/12/17 08:59 Last Admin: 10/17/17 08:26 Dose: 20 mg Heparin Sodium (Porcine) (Heparin) 5,000 units SUBQ Q12HR [facility] PRN Reason: Protocol Stop: 12/11/17 20:59 Last Admin: 10/17/17 08:26 Dose: 5,000 units Levofloxacin (Levaquin Pb) 500 mg in 100 mls @ 100 mls/hr IV Q24HR [facility] Stop: 12/14/17 05:59 Last Infusion: 10/17/17 06:56 Dose: Infused Insulin Aspart (Novolog Insulin Sliding Scale) 0 units SUBQ ACHS IMM[facility]EL PRN Reason: Protocol Stop: 12/11/17 20:59 Last Admin: 10/17/17 12:37 Dose: 4 units Insulin Detemir (Levemir Insulin) 14 units SUBQ DAILY I[facility] PRN Reason: Protocol Stop: 12/15/17 19:58 Last Admin: 10/17/17 08:36 Dose: 14 unit Lorazepam (Ativan) 0.5 mg PO Q6HR PRN; Protocol PRN Reason: agitation Stop: 12/11/17 19:27 Last Admin: 10/17/17 04:38 Dose: 0.5 mg Magnesium Hydroxide (Milk Of Magnesia) 30 ml PO HS PRN PRN Reason: Constipation Stop: 12/11/17 19:27 Metoprolol Succinate (Toprol Xl) 25 mg PO BID I[facility] Stop: 12/12/17 16:59 Last Admin: 10/17/17 08:25 Dose: 25 mg Miscellaneous (Clinical Monitoring) 1 ea MC PRN PRN PRN Reason: RENAL Stop: 12/12/17 10:33 Olanzapine (Zyprexa Zydis) 10 mg PO BID IMMANUEL PRN Reason: Protocol Stop: 12/15/17 06:50 Last Admin: 10/17/17 08:26 Dose: 10 mg Sodium Polystyrene Sulfonate (Kayexalate) 30 gm PO X1 ONE Stop: 10/17/17 15:37 Zolpidem Tartrate (Ambien) 5 mg PO HS PRN PRN Reason: insomnia Stop: 12/11/17 19:27 Last Admin: 10/15/17 00:10 Dose: 5 mg General: Alert, Oriented x3 HEENT: Atraumatic, PERRLA Neck: Supple Cardiovascular: Regular rate, Normal S1, Normal S2 Lungs: Clear to auscultation Abdomen: Bowel sounds, Soft Extremities: no Clubbing, no Cyanosis, no Edema Neurological: Sensation intact Skin: Rash Psych/Mental Status: Mood NL - Procedures Procedures: Procedures Procedure Code Date JEWEL MUSC/FASCIA 20 SQ CM/< 71472 10/12/17 EXCISION OF RIGHT HIP MUSCLE, OPEN APPROACH [id number] 10/12/17 Assessment/Plan - Assessment Assessment: KEN on CKD Stage 4 decub ulcer S/P debridement Severe dehydration Ess HTN Type 2 DM Psychosis - Plan Plan: Lab - Result Diagrams 10/14/17 06:00 10/14/17 06:00 Current Medications Acetaminophen (Tylenol) 650 mg PO Q6HR PRN PRN Reason: mild to moderate pain Stop: 12/11/17 19:27 Allopurinol (Zyloprim) 100 mg PO DAILY [facility] Stop: 12/12/17 08:59 Last Admin: 10/14/17 10:00 Dose: Not Given [place] Oil/Belizean Balsam/Trypsin (Venelex) 1 appl TP DAILY [facility] Stop: 12/12/17 15:59 Last Admin: 10/14/17 10:00 Dose: 1 appl Famotidine (Pepcid) 20 mg PO BID [facility] Stop: 12/12/17 08:59 Last Admin: 10/14/17 18:22 Dose: 20 mg Heparin Sodium (Porcine) (Heparin) 5,000 units SUBQ Q12HR [facility] PRN Reason: Protocol Stop: 12/11/17 20:59 Last Admin: 10/14/17 07:50 Dose: Not Given Ceftriaxone Sodium 1 gm/ (Sodium Chloride) 50 mls @ 100 mls/hr IV Q24HR [facility] Stop: 12/11/17 16:44 Last Admin: 10/14/17 17:45 Dose: 100 mls/hr Insulin Aspart (Novolog Insulin Sliding Scale) 0 units SUBQ ACHS IMM[facility]EL PRN Reason: Protocol Stop: 12/11/17 20:59 Last Admin: 10/14/17 18:23 Dose: 6 units Lorazepam (Ativan) 0.5 mg PO Q6HR PRN; Protocol PRN Reason: agitation Stop: 12/11/17 19:27 Magnesium Hydroxide (Milk Of Magnesia) 30 ml PO HS PRN PRN Reason: Constipation Stop: 12/11/17 19:27 Metoprolol Succinate (Toprol Xl) 25 mg PO BID [facility] Stop: 12/12/17 16:59 Last Admin: 10/14/17 18:23 Dose: 25 mg Miscellaneous (Clinical Monitoring) 1 ea MC PRN PRN PRN Reason: RENAL Stop: 12/12/17 10:33 Olanzapine (Zyprexa Zydis) 5 mg PO BID IMM[facility]UEL PRN Reason: Protocol Stop: 12/13/17 16:59 Zolpidem Tartrate (Ambien) 5 mg PO HS PRN PRN Reason: insomnia Stop: 12/11/17 19:27 Lab - Result Diagrams 10/16/17 09:11 10/17/17 06:06 Na up to 146 Kidney fnc gradually improving agree w/ Allopurinol f/u electrolytes, agree w/ Levaquin continue hydration BS still OOC increase Detemir kayexalate for hyperkalemia Nutritional Asmnt/Malnutr-PDOC - Dietary Evaluation Malnutrition Findings (Please click <Entered> for more info): Nutritional Asmnt/Malnutrition Start: 10/14/17 17: 10 Text: Status: Complete Freq: Document 10/14/17 17:13 GREY (Rec: 10/14/17 17:25 GREY [email or web address]) Nutritional Asmnt/Malnutrition Patient General Information Nutritional Screening High Risk Consult Diagnosis pressure ulcer, hyperglycemia, dehydration Pertinent Medical Hx/Surgical Hx DM, dementia, depression, psychosis, schizophrenia, chronic renal insuff Subjective Information Consult received for unstageble pressure ulcer on , high BG on 10/12. Per records, PO intake 50-75%. Pt was on NPO today for surgery- excisional debridement, application of wound VAC Current Diet Order/ Nutrition Support pureed, CCHO 60gm Pertinent Medications novolog Pertinent Labs 10/14 Na 152, K 4.6, BUN 56, Cr 1.8, Glucose 262, POC 236-246 , Mg 2.9 Nutritional Hx/Data Height 1.8 m Height (Calculated Centimeters) 180.3 Current Weight (lbs) 70.76 kg Weight (Calculated Kilograms) 70.8 Weight (Calculated Grams) 77031.4 [place] Body Weight 172 % [place] Body Weight 91 Body Mass Index (BMI) 21.7 Weight Status Approriate GI Symptoms GI Symptoms None Last BM 10/13 Difficult in: None Skin Integrity/Comment: scar to right upper back, decubitus ulcer to buttocks Current %PO Fair (50-74%) Estimated Nutritional Goals BEE in Kcals: Using Current wt Calories/Kcals/Kg 27-32 Kcals Calculated 3006-3626 Protein: Using Current wt Protein g/k-1.2 Protein Calculated 71-85 Fluid: ml 1917-2130ml (1ml/kcal) Nutritional Problem 2. Problem Problem altered nutrition related lab values Etiology hx of DM Signs/Symptoms: Glucose 262, POC 236-246 1. Problem Problem increased nutrition needs ( calorie and protein) Etiology increased metabolic demand for wound healing Signs/Symptoms: decubitus ulcer and surgery Intervention/Recommendation Comments 1. Continue with current diet as ordered. If PO intake low, will consider nutrition supplements 2. MD to consider vit C and zinc for wound healing 3. Monitor PO intake, wt, labs and skin integrity 4. F/U as moderate risk in 3-5 days, 3/2-3/, PO check / Expected Outcomes/Goals Expected Outcomes/Goals 1. PO intake to meet at least 75% of nutritional needs. 2. Wt stability, skin to remain intact, labs to approach WNL.
--- NOTE | 2017-10-17 15:44 | Pathology Report ---
[id number] Collection Date: 10/14/2017 Surgeon: Dr. Aleyda Greene Specimen Description: Sacral decubitus ulcer Gross Description: Received in formalin is a 3.8 x 1.2 x 1.1 cm portion of wilkinson-young, necrotic-appearing skin and subcutaneous tissue. Sectioning shows degenerative changes and necrosis. Slot Attendant sections are submitted in one cassette. Microscopic Description: The histologic sections show skin with extensive suppurative inflammation consisting of large collections of neutrophils with areas of necrosis. Diagnosis: Necrotic skin consistent with debridement, sacral decubitus ulcer. [facility]# [id number]
--- NOTE | 2017-10-18 01:29 | Progress Notes ---
DATE: 10/17/2017 SUBJECTIVE: Case was discussed with staff of the patient and reviewed records. The patient continues to be agitated, restless, and unable to follow direction. He continues to have severe mood swings, aggressive as the staff were just trying to help him. The patient needs to continue on 1:1. Dr. Rainey has had added Klonopin 1 mg twice a day and so far no side effects of the medication, no sedation, no nausea, no extrapyramidal symptoms. Thank you very much for allowing me to participate in the care of this most interesting gentleman. JOB# [id number]
[2017-10-18] MEDS: Levofloxacin 500mg/100mL 500 MG/100 ML BAG IV SCH (05:04)
--- NOTE | 2017-10-18 06:38 | General Progress Note ---
Subjective - Review of Systems Service Date: 10/18/17 Subjective: Patient still aggressive to staff. Unable to keep wound vac on. Objective - Results Result Diagrams: 10/16/17 09:11 10/17/17 06:06 Recent Labs: Laboratory Last Values WBC 6.7 Th/cmm (4.8-10.8) D 10/16/17 09:11 RBC 4.73 Mil/cmm (3.80-5.80) 10/16/17 09:11 Hgb 13.7 gm/dL (12-16) 10/16/17 09:11 Hct 42.8 % (41.0-60) 10/16/17 09:11 MCV 90.5 fl (80-99) 10/16/17 09:11 MCH 28.9 pg (27.0-31.0) 10/16/17 09:11 MCHC Differential 32.0 pg (28.0-36.0) 10/16/17 09:11 RDW 16.2 % (11.5-20.0) 10/16/17 09:11 Plt Count 162 Th/cmm (150-400) 10/16/17 09:11 MPV 9.7 fl 10/16/17 09:11 Neutrophils % 72.2 % (40.0-80.0) 10/16/17 09:11 Lymphocytes % 19.2 % (20.0-50.0) L 10/16/17 09:11 Monocytes % 5.9 % (2.0-10.0) 10/16/17 09:11 Eosinophils % 1.5 % (0.0-5.0) 10/16/17 09:11 Basophils % 1.2 % (0.0-2.0) 10/16/17 09:11 Eos Smear Source URINE 10/15/17 03:00 Eos Smear Total Cells FEW EOSINOPHILS SEEN (NONE SEEN) 10/15/17 03:00 PT 10.5 SECONDS (9.5-11.5) 10/14/17 06:00 INR 1.01 (0.5-1.4) 10/14/17 06:00 PTT (Actin FS) 25.3 SECONDS (26.0-38.0) L 10/14/17 06:00 Sodium 146 mEq/L (136-145) H 10/17/17 06:06 Potassium 5.2 mEq/L (3.5-5.1) H 10/17/17 06:06 Chloride 114 mEq/L (98-107) H 10/17/17 06:06 Carbon Dioxide 28.1 mEq/L (21.0-31.0) 10/17/17 06:06 Anion Gap 9.1 (7.0-16.0) 10/17/17 06:06 BUN 21 mg/dL (7-25) 10/17/17 06:06 Creatinine 1.2 mg/dL (0.7-1.3) 10/17/17 06:06 Est GFR ( Amer) TNP 10/17/17 06:06 Est GFR (Non-Af Amer) TNP 10/17/17 06:06 BUN/Creatinine Ratio 17.5 10/17/17 06:06 Glucose 293 mg/dL (70-105) H 10/17/17 06:06 POC Glucose 240 MG/DL (70 - 105) H 10/18/17 06:09 Hemoglobin A1c % 10.5 % (4.0-6.0) H 10/14/17 05:26 Uric Acid 11.9 mg/dL (4.4-7.6) H 10/14/17 06:00 Calcium 9.2 mg/dL (8.6-10.3) 10/17/17 06:06 Phosphorus 4.1 mg/dL (2.5-5.0) 10/14/17 06:00 Magnesium 2.9 mg/dL (1.9-2.7) H 10/14/17 06:00 Total Bilirubin 0.6 mg/dL (0.3-1.0) 10/16/17 09:11 AST 17 U/L (13-39) 10/16/17 09:11 ALT 13 U/L (7-52) 10/16/17 09:11 Alkaline Phosphatase 81 U/L (34-104) 10/16/17 09:11 Total Protein 6.4 gm/dL (6.0-8.3) 10/16/17 09:11 Albumin 3.0 gm/dL (4.2-5.5) L 10/16/17 09:11 Globulin 3.4 gm/dL 10/16/17 09:11 Albumin/Globulin Ratio 0.9 (1.0-1.8) L 10/16/17 09:11 TSH 0.28 uIU/ml (0.34-5.60) L 10/14/17 06:00 Urine Source CATH 10/15/17 03:00 Urine Color BROWN 10/15/17 03:00 Urine Clarity CLOUDY (CLEAR) 10/15/17 03:00 Urine pH 5.5 (4.6 - 8.0) 10/15/17 03:00 Ur Specific [place] 1.020 (1.005-1.030) 10/15/17 03:00 Urine Protein 100 mg/dL (NEGATIVE) H 10/15/17 03:00 Urine Glucose (UA) >=1000 mg/dL (NEGATIVE) H 10/15/17 03:00 Urine Ketones TRACE mg/dL (NEGATIVE) 10/15/17 03:00 Urine Blood LARGE (NEGATIVE) H 10/15/17 03:00 Urine Nitrate NEGATIVE (NEGATIVE) 10/15/17 03:00 Urine Bilirubin SMALL (NEGATIVE) H 10/15/17 03:00 Urine Ictotest NEGATIVE (NEGATIVE) 10/15/17 03:00 Urine Urobilinogen 0.2 E.U./dL (0.2 - 1.0) 10/15/17 03:00 Ur Leukocyte Esterase TRACE (NEGATIVE) H 10/15/17 03:00 Urine RBC >100 /hpf (0-5) H 10/15/17 03:00 Urine WBC >100 /hpf (0-5) H 10/15/17 03:00 Ur Epithelial Cells OCCASIONAL /lpf (FEW) 10/15/17 03:00 Urine Bacteria MODERATE /hpf (NONE SEEN) H 10/15/17 03:00 Urine Osmolality 749 mOsmol/kg 10/15/17 03:00 Ur Random Sodium 39 mmol/L 10/15/17 03:00 Urine Creatinine 136.0 mg/dl (39.0-259.0) 10/15/17 03:00 - Physical Exam Vitals and I&O: Vital Signs Temp 97.9 F 10/18/17 04:00 Pulse 96 10/18/17 04:00 Resp 17 10/18/17 04:00 BP 142/83 10/18/17 04:00 Pulse Ox 100 10/18/17 04:00 Intake & Output 10/17/17 10/17/17 10/18/17 06:59 18:59 06:59 Intake Total 850 1200 Output Total 500 Balance 850 700 Weight (lbs) 78.018 kg 78.018 kg Intake: Intake, IV Amount 100 Levofloxacin 500mg/100mL 100 500 mg In 100 ml @ 100 mls/hr IV Q24HR [facility] Rx#: [id number] Oral 750 1200 Output: Urine 500 Other: # Voids 2 # Bowel Movements 1 0 Active Medications: Current Medications Acetaminophen (Tylenol) 650 mg PO Q6HR PRN PRN Reason: mild to moderate pain Stop: 12/11/17 19:27 Last Admin: 10/16/17 03:51 Dose: 650 mg Acetaminophen/Hydrocodone Bitart ([place] 5mg/325mg) 1 tab PO Q6H PRN PRN Reason: Pain (Moderate) Stop: 12/15/17 08:21 Allopurinol (Zyloprim) 100 mg PO DAILY [facility] Stop: 12/12/17 08:59 Last Admin: 10/17/17 08:25 Dose: 100 mg [place] Oil/[place] Balsam/Trypsin (Venelex) 1 appl TP DAILY [facility] Stop: 12/12/17 15:59 Last Admin: 10/17/17 08:32 Dose: 1 appl Clonazepam (Klonopin) 1 mg PO BID IMMANUEL PRN Reason: Protocol Stop: 12/15/17 08:59 Last Admin: 10/17/17 16:45 Dose: 1 mg Famotidine (Pepcid) 20 mg PO BID [facility] Stop: 12/12/17 08:59 Last Admin: 10/17/17 16:44 Dose: 20 mg Heparin Sodium (Porcine) (Heparin) 5,000 units SUBQ Q12HR [facility] PRN Reason: Protocol Stop: 12/11/17 20:59 Last Admin: 10/17/17 20:19 Dose: 5,000 units Levofloxacin (Levaquin Pb) 500 mg in 100 mls @ 100 mls/hr IV Q24HR [facility] Stop: 12/14/17 05:59 Last Admin: 10/18/17 05:04 Dose: 100 mls/hr Insulin Aspart (Novolog Insulin Sliding Scale) 0 units SUBQ ACHS [facility] PRN Reason: Protocol Stop: 12/11/17 20:59 Last Admin: 10/17/17 20:19 Dose: 2 units Insulin Detemir (Levemir Insulin) 14 units SUBQ DAILY [facility] PRN Reason: Protocol Stop: 12/15/17 19:58 Last Admin: 10/17/17 08:36 Dose: 14 unit Lorazepam (Ativan) 0.5 mg PO Q6HR PRN; Protocol PRN Reason: agitation Stop: 12/11/17 19:27 Last Admin: 10/17/17 04:38 Dose: 0.5 mg Magnesium Hydroxide (Milk Of Magnesia) 30 ml PO HS PRN PRN Reason: Constipation Stop: 12/11/17 19:27 Metoprolol Succinate (Toprol Xl) 25 mg PO BID [facility] Stop: 12/12/17 16:59 Last Admin: 10/17/17 16:44 Dose: 25 mg Miscellaneous (Clinical Monitoring) 1 ea MC PRN PRN PRN Reason: RENAL Stop: 12/12/17 10:33 Olanzapine (Zyprexa Zydis) 10 mg PO BID IMM[facility]UEL PRN Reason: Protocol Stop: 12/15/17 06:50 Last Admin: 10/17/17 16:45 Dose: 10 mg Zolpidem Tartrate (Ambien) 5 mg PO HS PRN PRN Reason: insomnia Stop: 12/11/17 19:27 Last Admin: 10/15/17 00:10 Dose: 5 mg General: Alert, Oriented x3 HEENT: Atraumatic, PERRLA Neck: Supple Cardiovascular: Regular rate, Normal S1, Normal S2 Lungs: Clear to auscultation Abdomen: Bowel sounds, Soft Extremities: no Clubbing, no Cyanosis, no Edema Neurological: Sensation intact Skin: Rash Psych/Mental Status: Mood NL - Procedures Procedures: Procedures Procedure Code Date JEWEL MUSC/FASCIA 20 SQ CM/< 06920 10/12/17 EXCISION OF RIGHT HIP MUSCLE, OPEN APPROACH [id number] 10/12/17 Assessment/Plan - Assessment Assessment: hypernatremia prerenal azotemia hyperglycemia depression/anxiety gout dementia schizophrenia S/P wound debridement of sacral decubitus UTI discharge planning. KEN on CKD hyperkalemia - Plan Plan: will order repeat cmp,cbc tomorrow AM renal consult -- Dr. Sharp sacral decubitus ... will order Gen Surgical consult -- Dr. Greene for possible wound debridement Gout ... continue allopurinol 100mg PO daily continue wound vac. continue hydrocodone PO for pain control. Nutritional Asmnt/Malnutr-PDOC - Dietary Evaluation Malnutrition Findings (Please click <Entered> for more info): Nutritional Asmnt/Malnutrition Start: 10/14/17 17: 10 Text: Status: Complete Freq: Document 10/14/17 17:13 GREY (Rec: 10/14/17 17:25 [email or web address]) Nutritional Asmnt/Malnutrition Patient General Information Nutritional Screening High Risk Consult Diagnosis pressure ulcer, hyperglycemia, dehydration Pertinent Medical Hx/Surgical Hx DM, dementia, depression, psychosis, schizophrenia, chronic renal insuff Subjective Information Consult received for unstageble pressure ulcer on , high BG on 10/12. Per records, PO intake 50-75%. Pt was on NPO today for surgery- excisional debridement, application of wound VAC Current Diet Order/ Nutrition Support pureed, CCHO 60gm Pertinent Medications novolog Pertinent Labs 10/14 Na 152, K 4.6, BUN 56, Cr 1.8, Glucose 262, POC 236-246 , Mg 2.9 Nutritional Hx/Data Height 1.8 m Height (Calculated Centimeters) 180.3 Current Weight (lbs) 70.76 kg Weight (Calculated Kilograms) 70.8 Weight (Calculated Grams) 82092.4 [place] Body Weight 172 % [place] Body Weight 91 Body Mass Index (BMI) 21.7 Weight Status Approriate GI Symptoms GI Symptoms None Last BM 10/13 Difficult in: None Skin Integrity/Comment: scar to right upper back, decubitus ulcer to buttocks Current %PO Fair (50-74%) Estimated Nutritional Goals BEE in Kcals: Using Current wt Calories/Kcals/Kg 27-32 Kcals Calculated 1931-6774 Protein: Using Current wt Protein g/k-1.2 Protein Calculated 71-85 Fluid: ml 1917-2130ml (1ml/kcal) Nutritional Problem 2. Problem Problem altered nutrition related lab values Etiology hx of DM Signs/Symptoms: Glucose 262, POC 236-246 1. Problem Problem increased nutrition needs ( calorie and protein) Etiology increased metabolic demand for wound healing Signs/Symptoms: decubitus ulcer and surgery Intervention/Recommendation Comments 1. Continue with current diet as ordered. If PO intake low, will consider nutrition supplements 2. MD to consider vit C and zinc for wound healing 3. Monitor PO intake, wt, labs and skin integrity 4. F/U as moderate risk in 3-5 days, 3/2-3/, PO check / Expected Outcomes/Goals Expected Outcomes/Goals 1. PO intake to meet at least 75% of nutritional needs. 2. Wt stability, skin to remain intact, labs to approach WNL.
[2017-10-18 07:10] LABS: ANION GAP 8.5 (7.0-16.0); BUN - UREA NITROGEN 20 mg/dL (7-25); CALCIUM SERUM 8.8 mg/dL (8.6-10.3); CARBON DIOXIDE 29.4 mEq/L (21.0-31.0); CHLORIDE 112 mEq/L (98-107); CREATININE - SERUM 1.2 mg/dL (0.7-1.3); POTASSIUM SERUM 3.9 mEq/L (3.5-5.1); SODIUM SERUM 146 mEq/L (136-145)
[2017-10-18 07:51] LABS: GLUCOSE 191 mg/dL (70-105)
[2017-10-18] MEDS: Insulin Detemir 100 units/mL 10mL Vial SUBQ SCH (08:40)
[2017-10-18] MEDS: INSULIN ASPART SLIDING SCALE 100 UNITS/ML UNIT SUBQ SCH ×4 (08:42→20:37)
[2017-10-18] MEDS: OLANZapine 5 mg Oral Disintegrating Tab PO SCH ×2 (08:45→17:31)
[2017-10-18] MEDS: Venelex 60gm Tube TP SCH (08:46)
--- NOTE | 2017-10-18 14:55 | General Progress Note ---
Subjective - Review of Systems Service Date: 10/18/17 Subjective: awake, verbal, still confused Objective - Results Result Diagrams: 10/16/17 09:11 10/18/17 05:54 Recent Labs: Laboratory Last Values WBC 6.7 Th/cmm (4.8-10.8) D 10/16/17 09:11 RBC 4.73 Mil/cmm (3.80-5.80) 10/16/17 09:11 Hgb 13.7 gm/dL (12-16) 10/16/17 09:11 Hct 42.8 % (41.0-60) 10/16/17 09:11 MCV 90.5 fl (80-99) 10/16/17 09:11 MCH 28.9 pg (27.0-31.0) 10/16/17 09:11 MCHC Differential 32.0 pg (28.0-36.0) 10/16/17 09:11 RDW 16.2 % (11.5-20.0) 10/16/17 09:11 Plt Count 162 Th/cmm (150-400) 10/16/17 09:11 MPV 9.7 fl 10/16/17 09:11 Neutrophils % 72.2 % (40.0-80.0) 10/16/17 09:11 Lymphocytes % 19.2 % (20.0-50.0) L 10/16/17 09:11 Monocytes % 5.9 % (2.0-10.0) 10/16/17 09:11 Eosinophils % 1.5 % (0.0-5.0) 10/16/17 09:11 Basophils % 1.2 % (0.0-2.0) 10/16/17 09:11 Eos Smear Source URINE 10/15/17 03:00 Eos Smear Total Cells FEW EOSINOPHILS SEEN (NONE SEEN) 10/15/17 03:00 PT 10.5 SECONDS (9.5-11.5) 10/14/17 06:00 INR 1.01 (0.5-1.4) 10/14/17 06:00 PTT (Actin FS) 25.3 SECONDS (26.0-38.0) L 10/14/17 06:00 Sodium 146 mEq/L (136-145) H 10/18/17 05:54 Potassium 3.9 mEq/L (3.5-5.1) 10/18/17 05:54 Chloride 112 mEq/L (98-107) H 10/18/17 05:54 Carbon Dioxide 29.4 mEq/L (21.0-31.0) 10/18/17 05:54 Anion Gap 8.5 (7.0-16.0) 10/18/17 05:54 BUN 20 mg/dL (7-25) 10/18/17 05:54 Creatinine 1.2 mg/dL (0.7-1.3) 10/18/17 05:54 Est GFR ( Amer) TNP 10/18/17 05:54 Est GFR (Non-Af Amer) TNP 10/18/17 05:54 BUN/Creatinine Ratio 16.7 10/18/17 05:54 Glucose 191 mg/dL (70-105) H D 10/18/17 05:54 POC Glucose 173 MG/DL (70 - 105) H 10/18/17 12:10 Hemoglobin A1c % 10.5 % (4.0-6.0) H 10/14/17 05:26 Uric Acid 11.9 mg/dL (4.4-7.6) H 10/14/17 06:00 Calcium 8.8 mg/dL (8.6-10.3) 10/18/17 05:54 Phosphorus 4.1 mg/dL (2.5-5.0) 10/14/17 06:00 Magnesium 2.9 mg/dL (1.9-2.7) H 10/14/17 06:00 Total Bilirubin 0.6 mg/dL (0.3-1.0) 10/16/17 09:11 AST 17 U/L (13-39) 10/16/17 09:11 ALT 13 U/L (7-52) 10/16/17 09:11 Alkaline Phosphatase 81 U/L (34-104) 10/16/17 09:11 Total Protein 6.4 gm/dL (6.0-8.3) 10/16/17 09:11 Albumin 3.0 gm/dL (4.2-5.5) L 10/16/17 09:11 Globulin 3.4 gm/dL 10/16/17 09:11 Albumin/Globulin Ratio 0.9 (1.0-1.8) L 10/16/17 09:11 TSH 0.28 uIU/ml (0.34-5.60) L 10/14/17 06:00 Urine Source CATH 10/15/17 03:00 Urine Color BROWN 10/15/17 03:00 Urine Clarity CLOUDY (CLEAR) 10/15/17 03:00 Urine pH 5.5 (4.6 - 8.0) 10/15/17 03:00 Ur Specific [place] 1.020 (1.005-1.030) 10/15/17 03:00 Urine Protein 100 mg/dL (NEGATIVE) H 10/15/17 03:00 Urine Glucose (UA) >=1000 mg/dL (NEGATIVE) H 10/15/17 03:00 Urine Ketones TRACE mg/dL (NEGATIVE) 10/15/17 03:00 Urine Blood LARGE (NEGATIVE) H 10/15/17 03:00 Urine Nitrate NEGATIVE (NEGATIVE) 10/15/17 03:00 Urine Bilirubin SMALL (NEGATIVE) H 10/15/17 03:00 Urine Ictotest NEGATIVE (NEGATIVE) 10/15/17 03:00 Urine Urobilinogen 0.2 E.U./dL (0.2 - 1.0) 10/15/17 03:00 Ur Leukocyte Esterase TRACE (NEGATIVE) H 10/15/17 03:00 Urine RBC >100 /hpf (0-5) H 10/15/17 03:00 Urine WBC >100 /hpf (0-5) H 10/15/17 03:00 Ur Epithelial Cells OCCASIONAL /lpf (FEW) 10/15/17 03:00 Urine Bacteria MODERATE /hpf (NONE SEEN) H 10/15/17 03:00 Urine Osmolality 749 mOsmol/kg 10/15/17 03:00 Ur Random Sodium 39 mmol/L 10/15/17 03:00 Urine Creatinine 136.0 mg/dl (39.0-259.0) 10/15/17 03:00 - Physical Exam Vitals and I&O: Vital Signs Temp 96.4 F 10/18/17 08:00 Pulse 108 10/18/17 08:44 Resp 18 10/18/17 08:00 BP 164/99 10/18/17 08:44 Pulse Ox 98 10/18/17 08:00 Intake & Output 10/17/17 10/18/17 10/18/17 18:59 06:59 18:59 Intake Total 1300 Output Total 500 Balance 800 Weight (lbs) 78.018 kg Intake: Intake, IV Amount 100 Levofloxacin 500mg/100mL 100 500 mg In 100 ml @ 100 mls/hr IV Q24HR [facility] Rx#: [id number] Oral 1200 Output: Urine 500 Other: # Bowel Movements 0 Active Medications: Current Medications Acetaminophen (Tylenol) 650 mg PO Q6HR PRN PRN Reason: mild to moderate pain Stop: 12/11/17 19:27 Last Admin: 10/16/17 03:51 Dose: 650 mg Acetaminophen/Hydrocodone Bitart ([place] 5mg/325mg) 1 tab PO Q6H PRN PRN Reason: Pain (Moderate) Stop: 12/15/17 08:21 Allopurinol (Zyloprim) 100 mg PO DAILY [facility] Stop: 12/12/17 08:59 Last Admin: 10/18/17 08:45 Dose: 100 mg [place] Oil/[place] Balsam/Trypsin (Venelex) 1 appl TP DAILY [facility] Stop: 12/12/17 15:59 Last Admin: 10/18/17 08:46 Dose: 1 appl Clonazepam (Klonopin) 1 mg PO BID IMMANUEL PRN Reason: Protocol Stop: 12/15/17 08:59 Last Admin: 10/18/17 08:45 Dose: 1 mg Famotidine (Pepcid) 20 mg PO BID [facility] Stop: 12/12/17 08:59 Last Admin: 10/18/17 08:44 Dose: 20 mg Heparin Sodium (Porcine) (Heparin) 5,000 units SUBQ Q12HR IMMANUEL PRN Reason: Protocol Stop: 12/11/17 20:59 Last Admin: 10/18/17 08:44 Dose: 5,000 units Levofloxacin (Levaquin Pb) 500 mg in 100 mls @ 100 mls/hr IV Q24HR IMM[facility]UEL Stop: 12/14/17 05:59 Last Infusion: 10/18/17 06:59 Dose: Infused Insulin Aspart (Novolog Insulin Sliding Scale) 0 units SUBQ ACHS IMMANUEL PRN Reason: Protocol Stop: 12/11/17 20:59 Last Admin: 10/18/17 13:15 Dose: 2 units Insulin Detemir (Levemir Insulin) 16 units SUBQ DAILY IMMANUEL PRN Reason: Protocol Stop: 12/17/17 08:59 Last Admin: 10/18/17 08:40 Dose: 16 units Lorazepam (Ativan) 0.5 mg PO Q6HR PRN; Protocol PRN Reason: agitation Stop: 12/11/17 19:27 Last Admin: 10/17/17 04:38 Dose: 0.5 mg Magnesium Hydroxide (Milk Of Magnesia) 30 ml PO HS PRN PRN Reason: Constipation Stop: 12/11/17 19:27 Metoprolol Succinate (Toprol Xl) 25 mg PO BID IMMANUEL Stop: 12/12/17 16:59 Last Admin: 10/18/17 08:44 Dose: 25 mg Miscellaneous (Clinical Monitoring) 1 ea MC PRN PRN PRN Reason: RENAL Stop: 12/12/17 10:33 Olanzapine (Zyprexa Zydis) 12.5 mg PO BID IMMANUEL PRN Reason: Protocol Stop: 12/17/17 12:28 Zolpidem Tartrate (Ambien) 5 mg PO HS PRN PRN Reason: insomnia Stop: 12/11/17 19:27 Last Admin: 10/15/17 00:10 Dose: 5 mg General: Alert, Oriented x3 HEENT: Atraumatic, PERRLA Neck: Supple Cardiovascular: Regular rate, Normal S1, Normal S2 Lungs: Clear to auscultation Abdomen: Bowel sounds, Soft Extremities: no Clubbing, no Cyanosis, no Edema Neurological: Sensation intact Skin: Rash Psych/Mental Status: Mood NL - Procedures Procedures: Procedures Procedure Code Date JEWEL MUSC/FASCIA 20 SQ CM/< 67846 10/12/17 EXCISION OF RIGHT HIP MUSCLE, OPEN APPROACH [id number] 10/12/17 Assessment/Plan - Assessment Assessment: KEN on CKD Stage 4 decub ulcer S/P debridement Severe dehydration Ess HTN Type 2 DM Psychosis - Plan Plan: Lab - Result Diagrams 10/14/17 06:00 10/14/17 06:00 Current Medications Acetaminophen (Tylenol) 650 mg PO Q6HR PRN PRN Reason: mild to moderate pain Stop: 12/11/17 19:27 Allopurinol (Zyloprim) 100 mg PO DAILY IMMANUEL Stop: 12/12/17 08:59 Last Admin: 10/14/17 10:00 Dose: Not Given [place] Oil/[place] Balsam/Trypsin (Venelex) 1 appl TP DAILY IMMANUEL Stop: 12/12/17 15:59 Last Admin: 10/14/17 10:00 Dose: 1 appl Famotidine (Pepcid) 20 mg PO BID IMMANUEL Stop: 12/12/17 08:59 Last Admin: 10/14/17 18:22 Dose: 20 mg Heparin Sodium (Porcine) (Heparin) 5,000 units SUBQ Q12HR IMMANUEL PRN Reason: Protocol Stop: 12/11/17 20:59 Last Admin: 10/14/17 07:50 Dose: Not Given Ceftriaxone Sodium 1 gm/ (Sodium Chloride) 50 mls @ 100 mls/hr IV Q24HR IMMANUEL Stop: 12/11/17 16:44 Last Admin: 10/14/17 17:45 Dose: 100 mls/hr Insulin Aspart (Novolog Insulin Sliding Scale) 0 units SUBQ ACHS IMMANUEL PRN Reason: Protocol Stop: 12/11/17 20:59 Last Admin: 10/14/17 18:23 Dose: 6 units Lorazepam (Ativan) 0.5 mg PO Q6HR PRN; Protocol PRN Reason: agitation Stop: 12/11/17 19:27 Magnesium Hydroxide (Milk Of Magnesia) 30 ml PO HS PRN PRN Reason: Constipation Stop: 12/11/17 19:27 Metoprolol Succinate (Toprol Xl) 25 mg PO BID [facility] Stop: 12/12/17 16:59 Last Admin: 10/14/17 18:23 Dose: 25 mg Miscellaneous (Clinical Monitoring) 1 ea MC PRN PRN PRN Reason: RENAL Stop: 12/12/17 10:33 Olanzapine (Zyprexa Zydis) 5 mg PO BID IMMANUEL PRN Reason: Protocol Stop: 12/13/17 16:59 Zolpidem Tartrate (Ambien) 5 mg PO HS PRN PRN Reason: insomnia Stop: 12/11/17 19:27 Lab - Result Diagrams 10/16/17 09:11 10/18/17 05:54 Na up to 146 Kidney fnc gradually improving agree w/ Allopurinol f/u electrolytes, agree w/ Levaquin continue hydration BS better control increase Detemir kayexalate for hyperkalemia Nutritional Asmnt/Malnutr-PDOC - Dietary Evaluation Malnutrition Findings (Please click <Entered> for more info): Nutritional Asmnt/Malnutrition Start: 10/14/17 17: 10 Text: Status: Complete Freq: Document 10/14/17 17:13 GREY (Rec: 10/14/17 17:25 GREY [email or web address]) Nutritional Asmnt/Malnutrition Patient General Information Nutritional Screening High Risk Consult Diagnosis pressure ulcer, hyperglycemia, dehydration Pertinent Medical Hx/Surgical Hx DM, dementia, depression, psychosis, schizophrenia, chronic renal insuff Subjective Information Consult received for unstageble pressure ulcer on , high BG on 10/12. Per records, PO intake 50-75%. Pt was on NPO today for surgery- excisional debridement, application of wound VAC Current Diet Order/ Nutrition Support pureed, CCHO 60gm Pertinent Medications novolog Pertinent Labs 10/14 Na 152, K 4.6, BUN 56, Cr 1.8, Glucose 262, POC 236-246 , Mg 2.9 Nutritional Hx/Data Height 1.8 m Height (Calculated Centimeters) 180.3 Current Weight (lbs) 70.76 kg Weight (Calculated Kilograms) 70.8 Weight (Calculated Grams) 87401.4 [place] Body Weight 172 % [place] Body Weight 91 Body Mass Index (BMI) 21.7 Weight Status Approriate GI Symptoms GI Symptoms None Last BM 10/13 Difficult in: None Skin Integrity/Comment: scar to right upper back, decubitus ulcer to buttocks Current %PO Fair (50-74%) Estimated Nutritional Goals BEE in Kcals: Using Current wt Calories/Kcals/Kg 27-32 Kcals Calculated 9459-3597 Protein: Using Current wt Protein g/k-1.2 Protein Calculated 71-85 Fluid: ml 1917-2130ml (1ml/kcal) Nutritional Problem 2. Problem Problem altered nutrition related lab values Etiology hx of DM Signs/Symptoms: Glucose 262, POC 236-246 1. Problem Problem increased nutrition needs ( calorie and protein) Etiology increased metabolic demand for wound healing Signs/Symptoms: decubitus ulcer and surgery Intervention/Recommendation Comments 1. Continue with current diet as ordered. If PO intake low, will consider nutrition supplements 2. MD to consider vit C and zinc for wound healing 3. Monitor PO intake, wt, labs and skin integrity 4. F/U as moderate risk in 3-5 days, 3/2-3/4, PO check 10/17 Expected Outcomes/Goals Expected Outcomes/Goals 1. PO intake to meet at least 75% of nutritional needs. 2. Wt stability, skin to remain intact, labs to approach WNL.
--- NOTE | 2017-10-18 17:34 | Progress Notes ---
DATE: 10/18/[address] Rainey. Case was discussed with staff of the patient, reviewed records. The patient continues to be restless, agitated, unable to follow staff, direction, tried to hit staff this morning. Continues to have severe mood swings, aggressive behavior, unpredictable, impulsive, needing redirection. He is sleeping well, eating well. He is alert, very poor insight. He is on Zyprexa 10 mg twice a day. I will be increasing the dose to 12.5 mg twice a day and so far no side effects, no sedation, no nausea, no extrapyramidal symptoms. Thank you very much for allowing me to participate in the care of this most interesting gentleman. JOB# [id number]
--- NOTE | 2017-10-19 | Infectious Disease Prog Note ---
Infectious Disease Subjective - Review of Systems Service Date: 10/18/17 Subjective: no new change. Infectious Disease Objective - Results Result Diagrams: 10/16/17 09:11 10/18/17 05:54 Recent Labs: Laboratory Last Values WBC 6.7 Th/cmm (4.8-10.8) D 10/16/17 09:11 RBC 4.73 Mil/cmm (3.80-5.80) 10/16/17 09:11 Hgb 13.7 gm/dL (12-16) 10/16/17 09:11 Hct 42.8 % (41.0-60) 10/16/17 09:11 MCV 90.5 fl (80-99) 10/16/17 09:11 MCH 28.9 pg (27.0-31.0) 10/16/17 09:11 MCHC Differential 32.0 pg (28.0-36.0) 10/16/17 09:11 RDW 16.2 % (11.5-20.0) 10/16/17 09:11 Plt Count 162 Th/cmm (150-400) 10/16/17 09:11 MPV 9.7 fl 10/16/17 09:11 Neutrophils % 72.2 % (40.0-80.0) 10/16/17 09:11 Lymphocytes % 19.2 % (20.0-50.0) L 10/16/17 09:11 Monocytes % 5.9 % (2.0-10.0) 10/16/17 09:11 Eosinophils % 1.5 % (0.0-5.0) 10/16/17 09:11 Basophils % 1.2 % (0.0-2.0) 10/16/17 09:11 Eos Smear Source URINE 10/15/17 03:00 Eos Smear Total Cells FEW EOSINOPHILS SEEN (NONE SEEN) 10/15/17 03:00 PT 10.5 SECONDS (9.5-11.5) 10/14/17 06:00 INR 1.01 (0.5-1.4) 10/14/17 06:00 PTT (Actin FS) 25.3 SECONDS (26.0-38.0) L 10/14/17 06:00 Sodium 146 mEq/L (136-145) H 10/18/17 05:54 Potassium 3.9 mEq/L (3.5-5.1) 10/18/17 05:54 Chloride 112 mEq/L (98-107) H 10/18/17 05:54 Carbon Dioxide 29.4 mEq/L (21.0-31.0) 10/18/17 05:54 Anion Gap 8.5 (7.0-16.0) 10/18/17 05:54 BUN 20 mg/dL (7-25) 10/18/17 05:54 Creatinine 1.2 mg/dL (0.7-1.3) 10/18/17 05:54 Est GFR ( Amer) TNP 10/18/17 05:54 Est GFR (Non-Af Amer) TNP 10/18/17 05:54 BUN/Creatinine Ratio 16.7 10/18/17 05:54 Glucose 191 mg/dL (70-105) H D 10/18/17 05:54 POC Glucose 83 MG/DL (70 - 105) 10/18/17 19:46 Hemoglobin A1c % 10.5 % (4.0-6.0) H 10/14/17 05:26 Uric Acid 11.9 mg/dL (4.4-7.6) H 10/14/17 06:00 Calcium 8.8 mg/dL (8.6-10.3) 10/18/17 05:54 Phosphorus 4.1 mg/dL (2.5-5.0) 10/14/17 06:00 Magnesium 2.9 mg/dL (1.9-2.7) H 10/14/17 06:00 Total Bilirubin 0.6 mg/dL (0.3-1.0) 10/16/17 09:11 AST 17 U/L (13-39) 10/16/17 09:11 ALT 13 U/L (7-52) 10/16/17 09:11 Alkaline Phosphatase 81 U/L (34-104) 10/16/17 09:11 Total Protein 6.4 gm/dL (6.0-8.3) 10/16/17 09:11 Albumin 3.0 gm/dL (4.2-5.5) L 10/16/17 09:11 Globulin 3.4 gm/dL 10/16/17 09:11 Albumin/Globulin Ratio 0.9 (1.0-1.8) L 10/16/17 09:11 TSH 0.28 uIU/ml (0.34-5.60) L 10/14/17 06:00 Urine Source CATH 10/15/17 03:00 Urine Color BROWN 10/15/17 03:00 Urine Clarity CLOUDY (CLEAR) 10/15/17 03:00 Urine pH 5.5 (4.6 - 8.0) 10/15/17 03:00 Ur Specific [place] 1.020 (1.005-1.030) 10/15/17 03:00 Urine Protein 100 mg/dL (NEGATIVE) H 10/15/17 03:00 Urine Glucose (UA) >=1000 mg/dL (NEGATIVE) H 10/15/17 03:00 Urine Ketones TRACE mg/dL (NEGATIVE) 10/15/17 03:00 Urine Blood LARGE (NEGATIVE) H 10/15/17 03:00 Urine Nitrate NEGATIVE (NEGATIVE) 10/15/17 03:00 Urine Bilirubin SMALL (NEGATIVE) H 10/15/17 03:00 Urine Ictotest NEGATIVE (NEGATIVE) 10/15/17 03:00 Urine Urobilinogen 0.2 E.U./dL (0.2 - 1.0) 10/15/17 03:00 Ur Leukocyte Esterase TRACE (NEGATIVE) H 10/15/17 03:00 Urine RBC >100 /hpf (0-5) H 10/15/17 03:00 Urine WBC >100 /hpf (0-5) H 10/15/17 03:00 Ur Epithelial Cells OCCASIONAL /lpf (FEW) 10/15/17 03:00 Urine Bacteria MODERATE /hpf (NONE SEEN) H 10/15/17 03:00 Urine Osmolality 749 mOsmol/kg 10/15/17 03:00 Ur Random Sodium 39 mmol/L 10/15/17 03:00 Urine Creatinine 136.0 mg/dl (39.0-259.0) 10/15/17 03:00 - Physical Exam Vitals and I&O: Vital Signs Temp 97.4 F 10/18/17 16:00 Pulse 109 10/18/17 17:29 Resp 18 10/18/17 16:00 BP 147/87 10/18/17 17:29 Pulse Ox 100 10/18/17 16:00 Intake & Output 10/18/17 10/18/17 10/19/17 06:59 18:59 06:59 Intake Total 1300 600 Output Total 500 300 Balance 800 300 Weight (lbs) 78.018 kg 78.018 kg Intake: Intake, IV Amount 100 Levofloxacin 500mg/100mL 100 500 mg In 100 ml @ 100 mls/hr IV Q24HR [facility] Rx#: [id number] Oral 1200 600 Output: Urine 500 300 Other: # Bowel Movements 0 0 Active Medications: Current Medications Acetaminophen (Tylenol) 650 mg PO Q6HR PRN PRN Reason: mild to moderate pain Stop: 12/11/17 19:27 Last Admin: 10/16/17 03:51 Dose: 650 mg Acetaminophen/Hydrocodone Bitart ([place] 5mg/325mg) 1 tab PO Q6H PRN PRN Reason: Pain (Moderate) Stop: 12/15/17 08:21 Allopurinol (Zyloprim) 100 mg PO DAILY [facility] Stop: 12/12/17 08:59 Last Admin: 10/18/17 08:45 Dose: 100 mg [place] Oil/[place] Balsam/Trypsin (Venelex) 1 appl TP DAILY [facility] Stop: 12/12/17 15:59 Last Admin: 10/18/17 08:46 Dose: 1 appl Clonazepam (Klonopin) 1 mg PO BID IMMANUEL PRN Reason: Protocol Stop: 12/15/17 08:59 Last Admin: 10/18/17 17:30 Dose: 1 mg Famotidine (Pepcid) 20 mg PO BID [facility]MM[facility] Stop: 12/12/17 08:59 Last Admin: 10/18/17 17:31 Dose: 20 mg Heparin Sodium (Porcine) (Heparin) 5,000 units SUBQ Q12HR [facility] PRN Reason: Protocol Stop: 12/11/17 20:59 Last Admin: 10/18/17 20:36 Dose: 5,000 units Levofloxacin (Levaquin Pb) 500 mg in 100 mls @ 100 mls/hr IV Q24HR [facility] Stop: 12/14/17 05:59 Last Infusion: 10/18/17 06:59 Dose: Infused Insulin Aspart (Novolog Insulin Sliding Scale) 0 units SUBQ ACHS [facility]MM[facility]EL PRN Reason: Protocol Stop: 12/11/17 20:59 Last Admin: 10/18/17 20:37 Dose: Not Given Insulin Detemir (Levemir Insulin) 16 units SUBQ DAILY [facility]MM[facility]UEL PRN Reason: Protocol Stop: 12/17/17 08:59 Last Admin: 10/18/17 08:40 Dose: 16 units Lorazepam (Ativan) 0.5 mg PO Q6HR PRN; Protocol PRN Reason: agitation Stop: 12/11/17 19:27 Last Admin: 10/17/17 04:38 Dose: 0.5 mg Magnesium Hydroxide (Milk Of Magnesia) 30 ml PO HS PRN PRN Reason: Constipation Stop: 12/11/17 19:27 Metoprolol Succinate (Toprol Xl) 25 mg PO BID [facility]MM[facility]UEL Stop: 12/12/17 16:59 Last Admin: 10/18/17 17:29 Dose: 25 mg Miscellaneous (Clinical Monitoring) 1 ea MC PRN PRN PRN Reason: RENAL Stop: 12/12/17 10:33 Olanzapine (Zyprexa Zydis) 12.5 mg PO BID IMMANUEL PRN Reason: Protocol Stop: 12/17/17 12:28 Last Admin: 10/18/17 17:31 Dose: 12.5 mg Zolpidem Tartrate (Ambien) 5 mg PO HS PRN PRN Reason: insomnia Stop: 12/11/17 19:27 Last Admin: 10/18/17 20:36 Dose: 5 mg General: no acute distress, well developed, well nourished HEENT: atraumatic, normocephalic, PERRLA, EOMI Neck: supple, no thyromegaly Cardiovascular: S1S2, regular Lungs: no clear to auscultation bilaterally, no clear to percussion Abdomen: soft, no tender, no distended Extremities: no cyanosis, no clubbing, no edema Neurological: awake, alert Skin: other (sacral wound) - Procedures Procedures: Procedures Procedure Code Date JEWEL MUSC/FASCIA 20 SQ CM/< 84593 10/12/17 EXCISION OF RIGHT HIP MUSCLE, OPEN APPROACH [id number] 10/12/17 Infectious Disease Assmt/Plan - Assessment Assessment: 1. Sacral stage III decubitus ulcer, infected. 2. Status post I&D. 3. Diabetes mellitus type . 4. Dementia. 5. Depression. 6. psychosis. 7. Schizophrenia. 8. Hematuria. - Plan Plan: CPM. wound care. Nutritional Asmnt/Malnutr-PDOC - Dietary Evaluation Malnutrition Findings (Please click <Entered> for more info): Nutritional Asmnt/Malnutrition Start: 10/14/17 17: 10 Text: Status: Complete Freq: Document 10/14/17 17:13 GREY (Rec: 10/14/17 17:25 GREY [email or web address]) Nutritional Asmnt/Malnutrition Patient General Information Nutritional Screening High Risk Consult Diagnosis pressure ulcer, hyperglycemia, dehydration Pertinent Medical Hx/Surgical Hx DM, dementia, depression, psychosis, schizophrenia, chronic renal insuff Subjective Information Consult received for unstageble pressure ulcer on , high BG on 10/12. Per records, PO intake 50-75%. Pt was on NPO today for surgery- excisional debridement, application of wound VAC Current Diet Order/ Nutrition Support pureed, CCHO 60gm Pertinent Medications novolog Pertinent Labs 10/14 Na 152, K 4.6, BUN 56, Cr 1.8, Glucose 262, POC 236-246 , Mg 2.9 Nutritional Hx/Data Height 1.8 m Height (Calculated Centimeters) 180.3 Current Weight (lbs) 70.76 kg Weight (Calculated Kilograms) 70.8 Weight (Calculated Grams) 63508.4 [place] Body Weight 172 % [place] Body Weight 91 Body Mass Index (BMI) 21.7 Weight Status Approriate GI Symptoms GI Symptoms None Last BM 10/13 Difficult in: None Skin Integrity/Comment: scar to right upper back, decubitus ulcer to buttocks Current %PO Fair (50-74%) Estimated Nutritional Goals BEE in Kcals: Using Current wt Calories/Kcals/Kg 27-32 Kcals Calculated 7009-6356 Protein: Using Current wt Protein g/k-1.2 Protein Calculated 71-85 Fluid: ml 1917-2130ml (1ml/kcal) Nutritional Problem 2. Problem Problem altered nutrition related lab values Etiology hx of DM Signs/Symptoms: Glucose 262, POC 236-246 1. Problem Problem increased nutrition needs ( calorie and protein) Etiology increased metabolic demand for wound healing Signs/Symptoms: decubitus ulcer and surgery Intervention/Recommendation Comments 1. Continue with current diet as ordered. If PO intake low, will consider nutrition supplements 2. MD to consider vit C and zinc for wound healing 3. Monitor PO intake, wt, labs and skin integrity 4. F/U as moderate risk in 3-5 days, 3/2-3/4, PO check 3/2 Expected Outcomes/Goals Expected Outcomes/Goals 1. PO intake to meet at least 75% of nutritional needs. 2. Wt stability, skin to remain intact, labs to approach WNL.
[2017-10-19] MEDS: Levofloxacin 500mg/100mL 500 MG/100 ML BAG IV SCH (05:36)
[2017-10-19] MEDS: INSULIN ASPART SLIDING SCALE 100 UNITS/ML UNIT SUBQ SCH ×4 (09:10→22:35)
[2017-10-19] MEDS: Insulin Detemir 100 units/mL 10mL Vial SUBQ SCH (09:12)
[2017-10-19] MEDS: OLANZapine 5 mg Oral Disintegrating Tab PO SCH ×2 (09:21→17:51)
[2017-10-19] MEDS: Venelex 60gm Tube TP SCH (09:23)
--- NOTE | 2017-10-19 15:34 | General Progress Note ---
Subjective - Review of Systems Service Date: 10/19/17 Subjective: awake, verbal, still confused Objective - Results Result Diagrams: 10/16/17 09:11 10/18/17 05:54 Recent Labs: Laboratory Last Values WBC 6.7 Th/cmm (4.8-10.8) D 10/16/17 09:11 RBC 4.73 Mil/cmm (3.80-5.80) 10/16/17 09:11 Hgb 13.7 gm/dL (12-16) 10/16/17 09:11 Hct 42.8 % (41.0-60) 10/16/17 09:11 MCV 90.5 fl (80-99) 10/16/17 09:11 MCH 28.9 pg (27.0-31.0) 10/16/17 09:11 MCHC Differential 32.0 pg (28.0-36.0) 10/16/17 09:11 RDW 16.2 % (11.5-20.0) 10/16/17 09:11 Plt Count 162 Th/cmm (150-400) 10/16/17 09:11 MPV 9.7 fl 10/16/17 09:11 Neutrophils % 72.2 % (40.0-80.0) 10/16/17 09:11 Lymphocytes % 19.2 % (20.0-50.0) L 10/16/17 09:11 Monocytes % 5.9 % (2.0-10.0) 10/16/17 09:11 Eosinophils % 1.5 % (0.0-5.0) 10/16/17 09:11 Basophils % 1.2 % (0.0-2.0) 10/16/17 09:11 Eos Smear Source URINE 10/15/17 03:00 Eos Smear Total Cells FEW EOSINOPHILS SEEN (NONE SEEN) 10/15/17 03:00 PT 10.5 SECONDS (9.5-11.5) 10/14/17 06:00 INR 1.01 (0.5-1.4) 10/14/17 06:00 PTT (Actin FS) 25.3 SECONDS (26.0-38.0) L 10/14/17 06:00 Sodium 146 mEq/L (136-145) H 10/18/17 05:54 Potassium 3.9 mEq/L (3.5-5.1) 10/18/17 05:54 Chloride 112 mEq/L (98-107) H 10/18/17 05:54 Carbon Dioxide 29.4 mEq/L (21.0-31.0) 10/18/17 05:54 Anion Gap 8.5 (7.0-16.0) 10/18/17 05:54 BUN 20 mg/dL (7-25) 10/18/17 05:54 Creatinine 1.2 mg/dL (0.7-1.3) 10/18/17 05:54 Est GFR ( Amer) TNP 10/18/17 05:54 Est GFR (Non-Af Amer) TNP 10/18/17 05:54 BUN/Creatinine Ratio 16.7 10/18/17 05:54 Glucose 191 mg/dL (70-105) H D 10/18/17 05:54 POC Glucose 216 MG/DL (70 - 105) H 10/19/17 11:34 Hemoglobin A1c % 10.5 % (4.0-6.0) H 10/14/17 05:26 Uric Acid 11.9 mg/dL (4.4-7.6) H 10/14/17 06:00 Calcium 8.8 mg/dL (8.6-10.3) 10/18/17 05:54 Phosphorus 4.1 mg/dL (2.5-5.0) 10/14/17 06:00 Magnesium 2.9 mg/dL (1.9-2.7) H 10/14/17 06:00 Total Bilirubin 0.6 mg/dL (0.3-1.0) 10/16/17 09:11 AST 17 U/L (13-39) 10/16/17 09:11 ALT 13 U/L (7-52) 10/16/17 09:11 Alkaline Phosphatase 81 U/L (34-104) 10/16/17 09:11 Total Protein 6.4 gm/dL (6.0-8.3) 10/16/17 09:11 Albumin 3.0 gm/dL (4.2-5.5) L 10/16/17 09:11 Globulin 3.4 gm/dL 10/16/17 09:11 Albumin/Globulin Ratio 0.9 (1.0-1.8) L 10/16/17 09:11 TSH 0.28 uIU/ml (0.34-5.60) L 10/14/17 06:00 Urine Source CATH 10/15/17 03:00 Urine Color BROWN 10/15/17 03:00 Urine Clarity CLOUDY (CLEAR) 10/15/17 03:00 Urine pH 5.5 (4.6 - 8.0) 10/15/17 03:00 Ur Specific [place] 1.020 (1.005-1.030) 10/15/17 03:00 Urine Protein 100 mg/dL (NEGATIVE) H 10/15/17 03:00 Urine Glucose (UA) >=1000 mg/dL (NEGATIVE) H 10/15/17 03:00 Urine Ketones TRACE mg/dL (NEGATIVE) 10/15/17 03:00 Urine Blood LARGE (NEGATIVE) H 10/15/17 03:00 Urine Nitrate NEGATIVE (NEGATIVE) 10/15/17 03:00 Urine Bilirubin SMALL (NEGATIVE) H 10/15/17 03:00 Urine Ictotest NEGATIVE (NEGATIVE) 10/15/17 03:00 Urine Urobilinogen 0.2 E.U./dL (0.2 - 1.0) 10/15/17 03:00 Ur Leukocyte Esterase TRACE (NEGATIVE) H 10/15/17 03:00 Urine RBC >100 /hpf (0-5) H 10/15/17 03:00 Urine WBC >100 /hpf (0-5) H 10/15/17 03:00 Ur Epithelial Cells OCCASIONAL /lpf (FEW) 10/15/17 03:00 Urine Bacteria MODERATE /hpf (NONE SEEN) H 10/15/17 03:00 Urine Osmolality 749 mOsmol/kg 10/15/17 03:00 Ur Random Sodium 39 mmol/L 10/15/17 03:00 Urine Creatinine 136.0 mg/dl (39.0-259.0) 10/15/17 03:00 - Physical Exam Vitals and I&O: Vital Signs Temp 97.6 F 10/19/17 12:00 Pulse 102 10/19/17 12:00 Resp 18 10/19/17 12:00 BP 169/90 10/19/17 12:00 Pulse Ox 99 10/19/17 12:00 Intake & Output 10/18/17 10/19/17 10/19/17 18:59 06:59 18:59 Intake Total 600 Output Total 300 Balance 300 Weight (lbs) 78.018 kg 78.018 kg Intake: Oral 600 Output: Urine 300 Other: # Bowel Movements 0 Active Medications: Current Medications Acetaminophen (Tylenol) 650 mg PO Q6HR PRN PRN Reason: mild to moderate pain Stop: 12/11/17 19:27 Last Admin: 10/16/17 03:51 Dose: 650 mg Acetaminophen/Hydrocodone Bitart ([place] 5mg/325mg) 1 tab PO Q6H PRN PRN Reason: Pain (Moderate) Stop: 12/15/17 08:21 Allopurinol (Zyloprim) 100 mg PO DAILY [facility] Stop: 12/12/17 08:59 Last Admin: 10/19/17 09:21 Dose: 100 mg [place] Oil/[place] Balsam/Trypsin (Venelex) 1 appl TP DAILY [facility] Stop: 12/12/17 15:59 Last Admin: 10/19/17 09:23 Dose: 1 appl Clonazepam (Klonopin) 1 mg PO BID [facility] PRN Reason: Protocol Stop: 12/15/17 08:59 Last Admin: 10/19/17 09:23 Dose: 1 mg Famotidine (Pepcid) 20 mg PO BID [facility] Stop: 12/12/17 08:59 Last Admin: 10/19/17 09:21 Dose: 20 mg Heparin Sodium (Porcine) (Heparin) 5,000 units SUBQ Q12HR [facility] PRN Reason: Protocol Stop: 12/11/17 20:59 Last Admin: 10/19/17 09:21 Dose: 5,000 units Levofloxacin (Levaquin Pb) 500 mg in 100 mls @ 100 mls/hr IV Q24HR [facility] Stop: 12/14/17 05:59 Last Admin: 10/19/17 05:36 Dose: 100 mls/hr Insulin Aspart (Novolog Insulin Sliding Scale) 0 units SUBQ ACHS [facility] PRN Reason: Protocol Stop: 12/11/17 20:59 Last Admin: 10/19/17 12:43 Dose: 4 units Insulin Detemir (Levemir Insulin) 16 units SUBQ DAILY [facility] PRN Reason: Protocol Stop: 12/17/17 08:59 Last Admin: 10/19/17 09:12 Dose: 16 units Lorazepam (Ativan) 0.5 mg PO Q6HR PRN; Protocol PRN Reason: agitation Stop: 12/11/17 19:27 Last Admin: 10/19/17 01:21 Dose: 0.5 mg Magnesium Hydroxide (Milk Of Magnesia) 30 ml PO HS PRN PRN Reason: Constipation Stop: 12/11/17 19:27 Metoprolol Succinate (Toprol Xl) 25 mg PO BID [facility] Stop: 12/12/17 16:59 Last Admin: 10/19/17 09:22 Dose: 25 mg Miscellaneous (Clinical Monitoring) 1 ea MC PRN PRN PRN Reason: RENAL Stop: 12/12/17 10:33 Olanzapine (Zyprexa Zydis) 12.5 mg PO BID [facility] PRN Reason: Protocol Stop: 12/17/17 12:28 Last Admin: 10/19/17 09:21 Dose: 12.5 mg Zolpidem Tartrate (Ambien) 5 mg PO HS PRN PRN Reason: insomnia Stop: 12/11/17 19:27 Last Admin: 10/18/17 20:36 Dose: 5 mg General: Alert, Oriented x3 HEENT: Atraumatic, PERRLA Neck: Supple Cardiovascular: Regular rate, Normal S1, Normal S2 Lungs: Clear to auscultation Abdomen: Bowel sounds, Soft Extremities: no Clubbing, no Cyanosis, no Edema Neurological: Sensation intact Skin: Rash Psych/Mental Status: Mood NL - Procedures Procedures: Procedures Procedure Code Date JEWEL MUSC/FASCIA 20 SQ CM/< 74855 10/12/17 EXCISION OF RIGHT HIP MUSCLE, OPEN APPROACH [id number] 10/12/17 Assessment/Plan - Assessment Assessment: KEN on CKD Stage 4 decub ulcer S/P debridement Severe dehydration Ess HTN Type 2 DM Psychosis - Plan Plan: Lab - Result Diagrams 10/14/17 06:00 10/14/17 06:00 Current Medications Acetaminophen (Tylenol) 650 mg PO Q6HR PRN PRN Reason: mild to moderate pain Stop: 12/11/17 19:27 Allopurinol (Zyloprim) 100 mg PO DAILY [facility] Stop: 12/12/17 08:59 Last Admin: 10/14/17 10:00 Dose: Not Given [place] Oil/[place] Balsam/Trypsin (Venelex) 1 appl TP DAILY [facility] Stop: 12/12/17 15:59 Last Admin: 10/14/17 10:00 Dose: 1 appl Famotidine (Pepcid) 20 mg PO BID [facility] Stop: 12/12/17 08:59 Last Admin: 10/14/17 18:22 Dose: 20 mg Heparin Sodium (Porcine) (Heparin) 5,000 units SUBQ Q12HR [facility] PRN Reason: Protocol Stop: 12/11/17 20:59 Last Admin: 10/14/17 07:50 Dose: Not Given Ceftriaxone Sodium 1 gm/ (Sodium Chloride) 50 mls @ 100 mls/hr IV Q24HR [facility] Stop: 12/11/17 16:44 Last Admin: 10/14/17 17:45 Dose: 100 mls/hr Insulin Aspart (Novolog Insulin Sliding Scale) 0 units SUBQ ACHS [facility] PRN Reason: Protocol Stop: 12/11/17 20:59 Last Admin: 10/14/17 18:23 Dose: 6 units Lorazepam (Ativan) 0.5 mg PO Q6HR PRN; Protocol PRN Reason: agitation Stop: 12/11/17 19:27 Magnesium Hydroxide (Milk Of Magnesia) 30 ml PO HS PRN PRN Reason: Constipation Stop: 12/11/17 19:27 Metoprolol Succinate (Toprol Xl) 25 mg PO BID [facility] Stop: 12/12/17 16:59 Last Admin: 10/14/17 18:23 Dose: 25 mg Miscellaneous (Clinical Monitoring) 1 ea MC PRN PRN PRN Reason: RENAL Stop: 12/12/17 10:33 Olanzapine (Zyprexa Zydis) 5 mg PO BID [facility] PRN Reason: Protocol Stop: 12/13/17 16:59 Zolpidem Tartrate (Ambien) 5 mg PO HS PRN PRN Reason: insomnia Stop: 12/11/17 19:2 Lab - Result Diagrams 10/16/17 09:11 10/18/17 05:54 Na up to 146 Kidney fnc gradually improving agree w/ Allopurinol f/u electrolytes, agree w/ Levaquin continue hydration BS better control increase Detemir Nutritional Asmnt/Malnutr-PDOC - Dietary Evaluation Malnutrition Findings (Please click <Entered> for more info): Nutritional Asmnt/Malnutrition Start: 10/14/17 17: 10 Text: Status: Complete Freq: Document 10/14/17 17:13 LCHENG (Rec: 10/14/17 17:25 LCHENG [email or web address]) Nutritional Asmnt/Malnutrition Patient General Information Nutritional Screening High Risk Consult Diagnosis pressure ulcer, hyperglycemia, dehydration Pertinent Medical Hx/Surgical Hx DM, dementia, depression, psychosis, schizophrenia, chronic renal insuff Subjective Information Consult received for unstageble pressure ulcer on , high BG on 10/12. Per records, PO intake 50-75%. Pt was on NPO today for surgery- excisional debridement, application of wound VAC Current Diet Order/ Nutrition Support pureed, CCHO 60gm Pertinent Medications novolog Pertinent Labs 10/14 Na 152, K 4.6, BUN 56, Cr 1.8, Glucose 262, POC 236-246 , Mg 2.9 Nutritional Hx/Data Height 1.8 m Height (Calculated Centimeters) 180.3 Current Weight (lbs) 70.76 kg Weight (Calculated Kilograms) 70.8 Weight (Calculated Grams) 22737.4 [place] Body Weight 172 % [place] Body Weight 91 Body Mass Index (BMI) 21.7 Weight Status Approriate GI Symptoms GI Symptoms None Last BM 10/13 Difficult in: None Skin Integrity/Comment: scar to right upper back, decubitus ulcer to buttocks Current %PO Fair (50-74%) Estimated Nutritional Goals BEE in Kcals: Using Current wt Calories/Kcals/Kg 27-32 Kcals Calculated 8257-2871 Protein: Using Current wt Protein g/k-1.2 Protein Calculated 71-85 Fluid: ml 1917-2130ml (1ml/kcal) Nutritional Problem 2. Problem Problem altered nutrition related lab values Etiology hx of DM Signs/Symptoms: Glucose 262, POC 236-246 1. Problem Problem increased nutrition needs ( calorie and protein) Etiology increased metabolic demand for wound healing Signs/Symptoms: decubitus ulcer and surgery Intervention/Recommendation Comments 1. Continue with current diet as ordered. If PO intake low, will consider nutrition supplements 2. MD to consider vit C and zinc for wound healing 3. Monitor PO intake, wt, labs and skin integrity 4. F/U as moderate risk in 3-5 days, 3/2-3/4, PO check 10/17 Expected Outcomes/Goals Expected Outcomes/Goals 1. PO intake to meet at least 75% of nutritional needs. 2. Wt stability, skin to remain intact, labs to approach WNL.
--- NOTE | 2017-10-19 17:25 | Infectious Disease Prog Note ---
Infectious Disease Subjective - Review of Systems Service Date: 10/19/17 Subjective: no new change. Infectious Disease Objective - Results Result Diagrams: 10/16/17 09:11 10/18/17 05:54 Recent Labs: Laboratory Last Values WBC 6.7 Th/cmm (4.8-10.8) D 10/16/17 09:11 RBC 4.73 Mil/cmm (3.80-5.80) 10/16/17 09:11 Hgb 13.7 gm/dL (12-16) 10/16/17 09:11 Hct 42.8 % (41.0-60) 10/16/17 09:11 MCV 90.5 fl (80-99) 10/16/17 09:11 MCH 28.9 pg (27.0-31.0) 10/16/17 09:11 MCHC Differential 32.0 pg (28.0-36.0) 10/16/17 09:11 RDW 16.2 % (11.5-20.0) 10/16/17 09:11 Plt Count 162 Th/cmm (150-400) 10/16/17 09:11 MPV 9.7 fl 10/16/17 09:11 Neutrophils % 72.2 % (40.0-80.0) 10/16/17 09:11 Lymphocytes % 19.2 % (20.0-50.0) L 10/16/17 09:11 Monocytes % 5.9 % (2.0-10.0) 10/16/17 09:11 Eosinophils % 1.5 % (0.0-5.0) 10/16/17 09:11 Basophils % 1.2 % (0.0-2.0) 10/16/17 09:11 Eos Smear Source URINE 10/15/17 03:00 Eos Smear Total Cells FEW EOSINOPHILS SEEN (NONE SEEN) 10/15/17 03:00 PT 10.5 SECONDS (9.5-11.5) 10/14/17 06:00 INR 1.01 (0.5-1.4) 10/14/17 06:00 PTT (Actin FS) 25.3 SECONDS (26.0-38.0) L 10/14/17 06:00 Sodium 146 mEq/L (136-145) H 10/18/17 05:54 Potassium 3.9 mEq/L (3.5-5.1) 10/18/17 05:54 Chloride 112 mEq/L (98-107) H 10/18/17 05:54 Carbon Dioxide 29.4 mEq/L (21.0-31.0) 10/18/17 05:54 Anion Gap 8.5 (7.0-16.0) 10/18/17 05:54 BUN 20 mg/dL (7-25) 10/18/17 05:54 Creatinine 1.2 mg/dL (0.7-1.3) 10/18/17 05:54 Est GFR ( Amer) TNP 10/18/17 05:54 Est GFR (Non-Af Amer) TNP 10/18/17 05:54 BUN/Creatinine Ratio 16.7 10/18/17 05:54 Glucose 191 mg/dL (70-105) H D 10/18/17 05:54 POC Glucose 223 MG/DL (70 - 105) H 10/19/17 16:28 Hemoglobin A1c % 10.5 % (4.0-6.0) H 10/14/17 05:26 Uric Acid 11.9 mg/dL (4.4-7.6) H 10/14/17 06:00 Calcium 8.8 mg/dL (8.6-10.3) 10/18/17 05:54 Phosphorus 4.1 mg/dL (2.5-5.0) 10/14/17 06:00 Magnesium 2.9 mg/dL (1.9-2.7) H 10/14/17 06:00 Total Bilirubin 0.6 mg/dL (0.3-1.0) 10/16/17 09:11 AST 17 U/L (13-39) 10/16/17 09:11 ALT 13 U/L (7-52) 10/16/17 09:11 Alkaline Phosphatase 81 U/L (34-104) 10/16/17 09:11 Total Protein 6.4 gm/dL (6.0-8.3) 10/16/17 09:11 Albumin 3.0 gm/dL (4.2-5.5) L 10/16/17 09:11 Globulin 3.4 gm/dL 10/16/17 09:11 Albumin/Globulin Ratio 0.9 (1.0-1.8) L 10/16/17 09:11 TSH 0.28 uIU/ml (0.34-5.60) L 10/14/17 06:00 Urine Source CATH 10/15/17 03:00 Urine Color BROWN 10/15/17 03:00 Urine Clarity CLOUDY (CLEAR) 10/15/17 03:00 Urine pH 5.5 (4.6 - 8.0) 10/15/17 03:00 Ur Specific [place] 1.020 (1.005-1.030) 10/15/17 03:00 Urine Protein 100 mg/dL (NEGATIVE) H 10/15/17 03:00 Urine Glucose (UA) >=1000 mg/dL (NEGATIVE) H 10/15/17 03:00 Urine Ketones TRACE mg/dL (NEGATIVE) 10/15/17 03:00 Urine Blood LARGE (NEGATIVE) H 10/15/17 03:00 Urine Nitrate NEGATIVE (NEGATIVE) 10/15/17 03:00 Urine Bilirubin SMALL (NEGATIVE) H 10/15/17 03:00 Urine Ictotest NEGATIVE (NEGATIVE) 10/15/17 03:00 Urine Urobilinogen 0.2 E.U./dL (0.2 - 1.0) 10/15/17 03:00 Ur Leukocyte Esterase TRACE (NEGATIVE) H 10/15/17 03:00 Urine RBC >100 /hpf (0-5) H 10/15/17 03:00 Urine WBC >100 /hpf (0-5) H 10/15/17 03:00 Ur Epithelial Cells OCCASIONAL /lpf (FEW) 10/15/17 03:00 Urine Bacteria MODERATE /hpf (NONE SEEN) H 10/15/17 03:00 Urine Osmolality 749 mOsmol/kg 10/15/17 03:00 Ur Random Sodium 39 mmol/L 10/15/17 03:00 Urine Creatinine 136.0 mg/dl (39.0-259.0) 10/15/17 03:00 - Physical Exam Vitals and I&O: Vital Signs Temp 97.6 F 10/19/17 12:00 Pulse 102 10/19/17 12:00 Resp 18 10/19/17 12:00 BP 169/90 10/19/17 12:00 Pulse Ox 99 10/19/17 12:00 Intake & Output 10/18/17 10/19/17 10/19/17 18:59 06:59 18:59 Intake Total 600 Output Total 300 Balance 300 Weight (lbs) 78.018 kg 78.018 kg Intake: Oral 600 Output: Urine 300 Other: # Bowel Movements 0 Active Medications: Current Medications Acetaminophen (Tylenol) 650 mg PO Q6HR PRN PRN Reason: mild to moderate pain Stop: 12/11/17 19:27 Last Admin: 10/16/17 03:51 Dose: 650 mg Acetaminophen/Hydrocodone Bitart ([place] 5mg/325mg) 1 tab PO Q6H PRN PRN Reason: Pain (Moderate) Stop: 12/15/17 08:21 Allopurinol (Zyloprim) 100 mg PO DAILY [facility] Stop: 12/12/17 08:59 Last Admin: 10/19/17 09:21 Dose: 100 mg [place] Oil/[place] Balsam/Trypsin (Venelex) 1 appl TP DAILY [facility] Stop: 12/12/17 15:59 Last Admin: 10/19/17 09:23 Dose: 1 appl Clonazepam (Klonopin) 1 mg PO BID [facility] PRN Reason: Protocol Stop: 12/15/17 08:59 Last Admin: 10/19/17 09:23 Dose: 1 mg Famotidine (Pepcid) 20 mg PO BID [facility] Stop: 12/12/17 08:59 Last Admin: 10/19/17 09:21 Dose: 20 mg Heparin Sodium (Porcine) (Heparin) 5,000 units SUBQ Q12HR [facility] PRN Reason: Protocol Stop: 12/11/17 20:59 Last Admin: 10/19/17 09:21 Dose: 5,000 units Levofloxacin (Levaquin Pb) 500 mg in 100 mls @ 100 mls/hr IV Q24HR [facility] Stop: 12/14/17 05:59 Last Admin: 10/19/17 05:36 Dose: 100 mls/hr Insulin Aspart (Novolog Insulin Sliding Scale) 0 units SUBQ ACHS [facility] PRN Reason: Protocol Stop: 12/11/17 20:59 Last Admin: 10/19/17 12:43 Dose: 4 units Insulin Detemir (Levemir Insulin) 16 units SUBQ DAILY [facility] PRN Reason: Protocol Stop: 12/17/17 08:59 Last Admin: 10/19/17 09:12 Dose: 16 units Lorazepam (Ativan) 0.5 mg PO Q6HR PRN; Protocol PRN Reason: agitation Stop: 12/11/17 19:27 Last Admin: 10/19/17 01:21 Dose: 0.5 mg Magnesium Hydroxide (Milk Of Magnesia) 30 ml PO HS PRN PRN Reason: Constipation Stop: 12/11/17 19:27 Metoprolol Succinate (Toprol Xl) 25 mg PO BID [facility] Stop: 12/12/17 16:59 Last Admin: 10/19/17 09:22 Dose: 25 mg Miscellaneous (Clinical Monitoring) 1 ea MC PRN PRN PRN Reason: RENAL Stop: 12/12/17 10:33 Olanzapine (Zyprexa Zydis) 12.5 mg PO BID IMMANUEL PRN Reason: Protocol Stop: 12/17/17 12:28 Last Admin: 10/19/17 09:21 Dose: 12.5 mg Zolpidem Tartrate (Ambien) 5 mg PO HS PRN PRN Reason: insomnia Stop: 12/11/17 19:27 Last Admin: 10/18/17 20:36 Dose: 5 mg General: no acute distress, well developed, well nourished HEENT: atraumatic, normocephalic, PERRLA Neck: supple, no thyromegaly Cardiovascular: S1S2, regular Lungs: clear to auscultation bilaterally, clear to percussion Abdomen: soft, no tender, no distended, no mass Extremities: no cyanosis, no clubbing, no edema Skin: other (sacral wound: wound vac) - Procedures Procedures: Procedures Procedure Code Date JEWEL MUSC/FASCIA 20 SQ CM/< 47430 10/12/17 EXCISION OF RIGHT HIP MUSCLE, OPEN APPROACH [id number] 10/12/17 Infectious Disease Assmt/Plan - Assessment Assessment: 1. Sacral stage III decubitus ulcer, infected. 2. Status post I&D. 3. Diabetes mellitus type . 4. Dementia. 5. Depression. 6. psychosis. 7. Schizophrenia. 8. Hematuria. - Plan Plan: CPM. wound care. Nutritional Asmnt/Malnutr-PDOC - Dietary Evaluation Malnutrition Findings (Please click <Entered> for more info): Nutritional Asmnt/Malnutrition Start: 10/14/17 17: 10 Text: Status: Complete Freq: Document 10/14/17 17:13 LCHENG (Rec: 10/14/17 17:25 [email or web address]) Nutritional Asmnt/Malnutrition Patient General Information Nutritional Screening High Risk Consult Diagnosis pressure ulcer, hyperglycemia, dehydration Pertinent Medical Hx/Surgical Hx DM, dementia, depression, psychosis, schizophrenia, chronic renal insuff Subjective Information Consult received for unstageble pressure ulcer on , high BG on 10/12. Per records, PO intake 50-75%. Pt was on NPO today for surgery- excisional debridement, application of wound VAC Current Diet Order/ Nutrition Support pureed, CCHO 60gm Pertinent Medications novolog Pertinent Labs 10/14 Na 152, K 4.6, BUN 56, Cr 1.8, Glucose 262, POC 236-246 , Mg 2.9 Nutritional Hx/Data Height 1.8 m Height (Calculated Centimeters) 180.3 Current Weight (lbs) 70.76 kg Weight (Calculated Kilograms) 70.8 Weight (Calculated Grams) 31842.4 [place] Body Weight 172 % [place] Body Weight 91 Body Mass Index (BMI) 21.7 Weight Status Approriate GI Symptoms GI Symptoms None Last BM 10/13 Difficult in: None Skin Integrity/Comment: scar to right upper back, decubitus ulcer to buttocks Current %PO Fair (50-74%) Estimated Nutritional Goals BEE in Kcals: Using Current wt Calories/Kcals/Kg 27-32 Kcals Calculated 2713-2293 Protein: Using Current wt Protein g/k-1.2 Protein Calculated 71-85 Fluid: ml 1917-2130ml (1ml/kcal) Nutritional Problem 2. Problem Problem altered nutrition related lab values Etiology hx of DM Signs/Symptoms: Glucose 262, POC 236-246 1. Problem Problem increased nutrition needs ( calorie and protein) Etiology increased metabolic demand for wound healing Signs/Symptoms: decubitus ulcer and surgery Intervention/Recommendation Comments 1. Continue with current diet as ordered. If PO intake low, will consider nutrition supplements 2. MD to consider vit C and zinc for wound healing 3. Monitor PO intake, wt, labs and skin integrity 4. F/U as moderate risk in 3-5 days, 3/2-3/4, PO check 10/17 Expected Outcomes/Goals Expected Outcomes/Goals 1. PO intake to meet at least 75% of nutritional needs. 2. Wt stability, skin to remain intact, labs to approach WNL.
--- NOTE | 2017-10-19 17:38 | General Progress Note ---
Subjective - Review of Systems Service Date: 10/19/17 Subjective: Patient still aggressive to staff. Unable to keep wound vac on. Patient blood sugar still elevated. No new changes. Objective - Results Result Diagrams: 10/16/17 09:11 10/18/17 05:54 Recent Labs: Laboratory Last Values WBC 6.7 Th/cmm (4.8-10.8) D 10/16/17 09:11 RBC 4.73 Mil/cmm (3.80-5.80) 10/16/17 09:11 Hgb 13.7 gm/dL (12-16) 10/16/17 09:11 Hct 42.8 % (41.0-60) 10/16/17 09:11 MCV 90.5 fl (80-99) 10/16/17 09:11 MCH 28.9 pg (27.0-31.0) 10/16/17 09:11 MCHC Differential 32.0 pg (28.0-36.0) 10/16/17 09:11 RDW 16.2 % (11.5-20.0) 10/16/17 09:11 Plt Count 162 Th/cmm (150-400) 10/16/17 09:11 MPV 9.7 fl 10/16/17 09:11 Neutrophils % 72.2 % (40.0-80.0) 10/16/17 09:11 Lymphocytes % 19.2 % (20.0-50.0) L 10/16/17 09:11 Monocytes % 5.9 % (2.0-10.0) 10/16/17 09:11 Eosinophils % 1.5 % (0.0-5.0) 10/16/17 09:11 Basophils % 1.2 % (0.0-2.0) 10/16/17 09:11 Eos Smear Source URINE 10/15/17 03:00 Eos Smear Total Cells FEW EOSINOPHILS SEEN (NONE SEEN) 10/15/17 03:00 PT 10.5 SECONDS (9.5-11.5) 10/14/17 06:00 INR 1.01 (0.5-1.4) 10/14/17 06:00 PTT (Actin FS) 25.3 SECONDS (26.0-38.0) L 10/14/17 06:00 Sodium 146 mEq/L (136-145) H 10/18/17 05:54 Potassium 3.9 mEq/L (3.5-5.1) 10/18/17 05:54 Chloride 112 mEq/L (98-107) H 10/18/17 05:54 Carbon Dioxide 29.4 mEq/L (21.0-31.0) 10/18/17 05:54 Anion Gap 8.5 (7.0-16.0) 10/18/17 05:54 BUN 20 mg/dL (7-25) 10/18/17 05:54 Creatinine 1.2 mg/dL (0.7-1.3) 10/18/17 05:54 Est GFR ( Amer) TNP 10/18/17 05:54 Est GFR (Non-Af Amer) TNP 10/18/17 05:54 BUN/Creatinine Ratio 16.7 10/18/17 05:54 Glucose 191 mg/dL (70-105) H D 10/18/17 05:54 POC Glucose 223 MG/DL (70 - 105) H 10/19/17 16:28 Hemoglobin A1c % 10.5 % (4.0-6.0) H 10/14/17 05:26 Uric Acid 11.9 mg/dL (4.4-7.6) H 10/14/17 06:00 Calcium 8.8 mg/dL (8.6-10.3) 10/18/17 05:54 Phosphorus 4.1 mg/dL (2.5-5.0) 10/14/17 06:00 Magnesium 2.9 mg/dL (1.9-2.7) H 10/14/17 06:00 Total Bilirubin 0.6 mg/dL (0.3-1.0) 10/16/17 09:11 AST 17 U/L (13-39) 10/16/17 09:11 ALT 13 U/L (7-52) 10/16/17 09:11 Alkaline Phosphatase 81 U/L (34-104) 10/16/17 09:11 Total Protein 6.4 gm/dL (6.0-8.3) 10/16/17 09:11 Albumin 3.0 gm/dL (4.2-5.5) L 10/16/17 09:11 Globulin 3.4 gm/dL 10/16/17 09:11 Albumin/Globulin Ratio 0.9 (1.0-1.8) L 10/16/17 09:11 TSH 0.28 uIU/ml (0.34-5.60) L 10/14/17 06:00 Urine Source CATH 10/15/17 03:00 Urine Color BROWN 10/15/17 03:00 Urine Clarity CLOUDY (CLEAR) 10/15/17 03:00 Urine pH 5.5 (4.6 - 8.0) 10/15/17 03:00 Ur Specific [place] 1.020 (1.005-1.030) 10/15/17 03:00 Urine Protein 100 mg/dL (NEGATIVE) H 10/15/17 03:00 Urine Glucose (UA) >=1000 mg/dL (NEGATIVE) H 10/15/17 03:00 Urine Ketones TRACE mg/dL (NEGATIVE) 10/15/17 03:00 Urine Blood LARGE (NEGATIVE) H 10/15/17 03:00 Urine Nitrate NEGATIVE (NEGATIVE) 10/15/17 03:00 Urine Bilirubin SMALL (NEGATIVE) H 10/15/17 03:00 Urine Ictotest NEGATIVE (NEGATIVE) 10/15/17 03:00 Urine Urobilinogen 0.2 E.U./dL (0.2 - 1.0) 10/15/17 03:00 Ur Leukocyte Esterase TRACE (NEGATIVE) H 10/15/17 03:00 Urine RBC >100 /hpf (0-5) H 10/15/17 03:00 Urine WBC >100 /hpf (0-5) H 10/15/17 03:00 Ur Epithelial Cells OCCASIONAL /lpf (FEW) 10/15/17 03:00 Urine Bacteria MODERATE /hpf (NONE SEEN) H 10/15/17 03:00 Urine Osmolality 749 mOsmol/kg 10/15/17 03:00 Ur Random Sodium 39 mmol/L 10/15/17 03:00 Urine Creatinine 136.0 mg/dl (39.0-259.0) 10/15/17 03:00 - Physical Exam Vitals and I&O: Vital Signs Temp 97.6 F 10/19/17 12:00 Pulse 102 10/19/17 12:00 Resp 18 10/19/17 12:00 BP 169/90 10/19/17 12:00 Pulse Ox 99 10/19/17 12:00 Intake & Output 10/18/17 10/19/17 10/19/17 18:59 06:59 18:59 Intake Total 600 Output Total 300 Balance 300 Weight (lbs) 78.018 kg 78.018 kg Intake: Oral 600 Output: Urine 300 Other: # Bowel Movements 0 Active Medications: Current Medications Acetaminophen (Tylenol) 650 mg PO Q6HR PRN PRN Reason: mild to moderate pain Stop: 12/11/17 19:27 Last Admin: 10/16/17 03:51 Dose: 650 mg Acetaminophen/Hydrocodone Bitart ([place] 5mg/325mg) 1 tab PO Q6H PRN PRN Reason: Pain (Moderate) Stop: 12/15/17 08:21 Allopurinol (Zyloprim) 100 mg PO DAILY [facility] Stop: 12/12/17 08:59 Last Admin: 10/19/17 09:21 Dose: 100 mg [place] Oil/[place] Balsam/Trypsin (Venelex) 1 appl TP DAILY [facility] Stop: 12/12/17 15:59 Last Admin: 10/19/17 09:23 Dose: 1 appl Clonazepam (Klonopin) 1 mg PO BID [facility] PRN Reason: Protocol Stop: 12/15/17 08:59 Last Admin: 10/19/17 09:23 Dose: 1 mg Famotidine (Pepcid) 20 mg PO BID [facility] Stop: 12/12/17 08:59 Last Admin: 10/19/17 09:21 Dose: 20 mg Heparin Sodium (Porcine) (Heparin) 5,000 units SUBQ Q12HR [facility] PRN Reason: Protocol Stop: 12/11/17 20:59 Last Admin: 10/19/17 09:21 Dose: 5,000 units Levofloxacin (Levaquin Pb) 500 mg in 100 mls @ 100 mls/hr IV Q24HR [facility] Stop: 12/14/17 05:59 Last Admin: 10/19/17 05:36 Dose: 100 mls/hr Insulin Aspart (Novolog Insulin Sliding Scale) 0 units SUBQ ACHS [facility] PRN Reason: Protocol Stop: 12/11/17 20:59 Last Admin: 10/19/17 12:43 Dose: 4 units Insulin Detemir (Levemir Insulin) 16 units SUBQ DAILY [facility] PRN Reason: Protocol Stop: 12/17/17 08:59 Last Admin: 10/19/17 09:12 Dose: 16 units Lorazepam (Ativan) 0.5 mg PO Q6HR PRN; Protocol PRN Reason: agitation Stop: 12/11/17 19:27 Last Admin: 10/19/17 01:21 Dose: 0.5 mg Magnesium Hydroxide (Milk Of Magnesia) 30 ml PO HS PRN PRN Reason: Constipation Stop: 12/11/17 19:27 Metoprolol Succinate (Toprol Xl) 25 mg PO BID [facility] Stop: 12/12/17 16:59 Last Admin: 10/19/17 09:22 Dose: 25 mg Miscellaneous (Clinical Monitoring) 1 ea MC PRN PRN PRN Reason: RENAL Stop: 12/12/17 10:33 Olanzapine (Zyprexa Zydis) 12.5 mg PO BID [facility] PRN Reason: Protocol Stop: 12/17/17 12:28 Last Admin: 10/19/17 09:21 Dose: 12.5 mg Zolpidem Tartrate (Ambien) 5 mg PO HS PRN PRN Reason: insomnia Stop: 12/11/17 19:27 Last Admin: 10/18/17 20:36 Dose: 5 mg General: Alert, Oriented x3 HEENT: Atraumatic, PERRLA Neck: Supple Cardiovascular: Regular rate, Normal S1, Normal S2 Lungs: Clear to auscultation Abdomen: Bowel sounds, Soft Extremities: no Clubbing, no Cyanosis, no Edema Neurological: Sensation intact Skin: Rash Psych/Mental Status: Mood NL - Procedures Procedures: Procedures Procedure Code Date JEWEL MUSC/FASCIA 20 SQ CM/< 61259 10/12/17 EXCISION OF RIGHT HIP MUSCLE, OPEN APPROACH [id number] 10/12/17 Assessment/Plan - Assessment Assessment: hypernatremia prerenal azotemia hyperglycemia depression/anxiety gout dementia schizophrenia S/P wound debridement of sacral decubitus UTI discharge planning. KEN on CKD hyperkalemia - Plan Plan: will order repeat cmp,cbc tomorrow AM renal consult -- Dr. Sharp sacral decubitus ... will order Gen Surgical consult -- Dr. Greene for possible wound debridement Gout ... continue allopurinol 100mg PO daily continue wound vac. continue hydrocodone PO for pain control. Nutritional Asmnt/Malnutr-PDOC - Dietary Evaluation Malnutrition Findings (Please click <Entered> for more info): Nutritional Asmnt/Malnutrition Start: 10/14/17 17: 10 Text: Status: Complete Freq: Document 10/14/17 17:13 GREY (Rec: 10/14/17 17:25 GREY [email or web address]) Nutritional Asmnt/Malnutrition Patient General Information Nutritional Screening High Risk Consult Diagnosis pressure ulcer, hyperglycemia, dehydration Pertinent Medical Hx/Surgical Hx DM, dementia, depression, psychosis, schizophrenia, chronic renal insuff Subjective Information Consult received for unstageble pressure ulcer on , high BG on 10/12. Per records, PO intake 50-75%. Pt was on NPO today for surgery- excisional debridement, application of wound VAC Current Diet Order/ Nutrition Support pureed, CCHO 60gm Pertinent Medications novolog Pertinent Labs 10/14 Na 152, K 4.6, BUN 56, Cr 1.8, Glucose 262, POC 236-246 , Mg 2.9 Nutritional Hx/Data Height 1.8 m Height (Calculated Centimeters) 180.3 Current Weight (lbs) 70.76 kg Weight (Calculated Kilograms) 70.8 Weight (Calculated Grams) 28351.4 [place] Body Weight 172 % [place] Body Weight 91 Body Mass Index (BMI) 21.7 Weight Status Approriate GI Symptoms GI Symptoms None Last BM 10/13 Difficult in: None Skin Integrity/Comment: scar to right upper back, decubitus ulcer to buttocks Current %PO Fair (50-74%) Estimated Nutritional Goals BEE in Kcals: Using Current wt Calories/Kcals/Kg 27-32 Kcals Calculated 8466-8436 Protein: Using Current wt Protein g/k-1.2 Protein Calculated 71-85 Fluid: ml 1917-2130ml (1ml/kcal) Nutritional Problem 2. Problem Problem altered nutrition related lab values Etiology hx of DM Signs/Symptoms: Glucose 262, POC 236-246 1. Problem Problem increased nutrition needs ( calorie and protein) Etiology increased metabolic demand for wound healing Signs/Symptoms: decubitus ulcer and surgery Intervention/Recommendation Comments 1. Continue with current diet as ordered. If PO intake low, will consider nutrition supplements 2. MD to consider vit C and zinc for wound healing 3. Monitor PO intake, wt, labs and skin integrity 4. F/U as moderate risk in 3-5 days, /-3/4, PO check 3/2 Expected Outcomes/Goals Expected Outcomes/Goals 1. PO intake to meet at least 75% of nutritional needs. 2. Wt stability, skin to remain intact, labs to approach WNL.
--- NOTE | 2017-10-19 22:42 | Progress Notes ---
DATE: 10/19/2017 Case discussed with staff of the patient, reviewed records. The patient continues to be unpredictable, impulsive, needing redirection. Continues to have poor insight. Continues to be easily irritable and agitated, trying to strike staff at times. He is compliant with the medication with no side effects, no sedation, no nausea, no extrapyramidal symptoms. I have increased his Zyprexa to 12.5 mg twice a day to help improve his behavior. Thank you very much for allowing me to participate in the care of this most interesting gentleman. JOB# [id number]
[2017-10-20] MEDS: Levofloxacin 500mg/100mL 500 MG/100 ML BAG IV SCH (06:33)
[2017-10-20] MEDS: INSULIN ASPART SLIDING SCALE 100 UNITS/ML UNIT SUBQ SCH ×4 (07:58→21:40)
[2017-10-20] MEDS: OLANZapine 5 mg Oral Disintegrating Tab PO SCH ×2 (08:21→17:22)
[2017-10-20] MEDS: Venelex 60gm Tube TP SCH (08:22)
--- NOTE | 2017-10-20 08:27 | General Progress Note ---
Subjective - Review of Systems Service Date: 10/20/17 Subjective: Patient still aggressive to staff. Unable to keep wound vac on. Patient blood sugar much better controlled on levemir 16u Daily. Objective - Results Result Diagrams: 10/16/17 09:11 10/18/17 05:54 Recent Labs: Laboratory Last Values WBC 6.7 Th/cmm (4.8-10.8) D 10/16/17 09:11 RBC 4.73 Mil/cmm (3.80-5.80) 10/16/17 09:11 Hgb 13.7 gm/dL (12-16) 10/16/17 09:11 Hct 42.8 % (41.0-60) 10/16/17 09:11 MCV 90.5 fl (80-99) 10/16/17 09:11 MCH 28.9 pg (27.0-31.0) 10/16/17 09:11 MCHC Differential 32.0 pg (28.0-36.0) 10/16/17 09:11 RDW 16.2 % (11.5-20.0) 10/16/17 09:11 Plt Count 162 Th/cmm (150-400) 10/16/17 09:11 MPV 9.7 fl 10/16/17 09:11 Neutrophils % 72.2 % (40.0-80.0) 10/16/17 09:11 Lymphocytes % 19.2 % (20.0-50.0) L 10/16/17 09:11 Monocytes % 5.9 % (2.0-10.0) 10/16/17 09:11 Eosinophils % 1.5 % (0.0-5.0) 10/16/17 09:11 Basophils % 1.2 % (0.0-2.0) 10/16/17 09:11 Eos Smear Source URINE 10/15/17 03:00 Eos Smear Total Cells FEW EOSINOPHILS SEEN (NONE SEEN) 10/15/17 03:00 PT 10.5 SECONDS (9.5-11.5) 10/14/17 06:00 INR 1.01 (0.5-1.4) 10/14/17 06:00 PTT (Actin FS) 25.3 SECONDS (26.0-38.0) L 10/14/17 06:00 Sodium 146 mEq/L (136-145) H 10/18/17 05:54 Potassium 3.9 mEq/L (3.5-5.1) 10/18/17 05:54 Chloride 112 mEq/L (98-107) H 10/18/17 05:54 Carbon Dioxide 29.4 mEq/L (21.0-31.0) 10/18/17 05:54 Anion Gap 8.5 (7.0-16.0) 10/18/17 05:54 BUN 20 mg/dL (7-25) 10/18/17 05:54 Creatinine 1.2 mg/dL (0.7-1.3) 10/18/17 05:54 Est GFR ( Amer) TNP 10/18/17 05:54 Est GFR (Non-Af Amer) TNP 10/18/17 05:54 BUN/Creatinine Ratio 16.7 10/18/17 05:54 Glucose 191 mg/dL (70-105) H D 10/18/17 05:54 POC Glucose 166 MG/DL (70 - 105) H 10/20/17 05:39 Hemoglobin A1c % 10.5 % (4.0-6.0) H 10/14/17 05:26 Uric Acid 11.9 mg/dL (4.4-7.6) H 10/14/17 06:00 Calcium 8.8 mg/dL (8.6-10.3) 10/18/17 05:54 Phosphorus 4.1 mg/dL (2.5-5.0) 10/14/17 06:00 Magnesium 2.9 mg/dL (1.9-2.7) H 10/14/17 06:00 Total Bilirubin 0.6 mg/dL (0.3-1.0) 10/16/17 09:11 AST 17 U/L (13-39) 10/16/17 09:11 ALT 13 U/L (7-52) 10/16/17 09:11 Alkaline Phosphatase 81 U/L (34-104) 10/16/17 09:11 Total Protein 6.4 gm/dL (6.0-8.3) 10/16/17 09:11 Albumin 3.0 gm/dL (4.2-5.5) L 10/16/17 09:11 Globulin 3.4 gm/dL 10/16/17 09:11 Albumin/Globulin Ratio 0.9 (1.0-1.8) L 10/16/17 09:11 TSH 0.28 uIU/ml (0.34-5.60) L 10/14/17 06:00 Urine Source CATH 10/15/17 03:00 Urine Color BROWN 10/15/17 03:00 Urine Clarity CLOUDY (CLEAR) 10/15/17 03:00 Urine pH 5.5 (4.6 - 8.0) 10/15/17 03:00 Ur Specific [place] 1.020 (1.005-1.030) 10/15/17 03:00 Urine Protein 100 mg/dL (NEGATIVE) H 10/15/17 03:00 Urine Glucose (UA) >=1000 mg/dL (NEGATIVE) H 10/15/17 03:00 Urine Ketones TRACE mg/dL (NEGATIVE) 10/15/17 03:00 Urine Blood LARGE (NEGATIVE) H 10/15/17 03:00 Urine Nitrate NEGATIVE (NEGATIVE) 10/15/17 03:00 Urine Bilirubin SMALL (NEGATIVE) H 10/15/17 03:00 Urine Ictotest NEGATIVE (NEGATIVE) 10/15/17 03:00 Urine Urobilinogen 0.2 E.U./dL (0.2 - 1.0) 10/15/17 03:00 Ur Leukocyte Esterase TRACE (NEGATIVE) H 10/15/17 03:00 Urine RBC >100 /hpf (0-5) H 10/15/17 03:00 Urine WBC >100 /hpf (0-5) H 10/15/17 03:00 Ur Epithelial Cells OCCASIONAL /lpf (FEW) 10/15/17 03:00 Urine Bacteria MODERATE /hpf (NONE SEEN) H 10/15/17 03:00 Urine Osmolality 749 mOsmol/kg 10/15/17 03:00 Ur Random Sodium 39 mmol/L 10/15/17 03:00 Urine Creatinine 136.0 mg/dl (39.0-259.0) 10/15/17 03:00 - Physical Exam Vitals and I&O: Vital Signs Temp 97.2 F 10/20/17 04:54 Pulse 102 10/20/17 04:54 Resp 18 10/20/17 04:54 BP 141/77 10/20/17 04:54 Pulse Ox 98 10/20/17 04:54 Intake & Output 10/19/17 10/20/17 10/20/17 18:59 06:59 18:59 Intake Total 850 Output Total 600 Balance 250 Weight (lbs) 78.018 kg 0 g Intake: Oral 850 Output: Urine 600 Other: # Voids 3 # Bowel Movements 1 Active Medications: Current Medications Acetaminophen (Tylenol) 650 mg PO Q6HR PRN PRN Reason: mild to moderate pain Stop: 12/11/17 19:27 Last Admin: 10/16/17 03:51 Dose: 650 mg Acetaminophen/Hydrocodone Bitart ([place] 5mg/325mg) 1 tab PO Q6H PRN PRN Reason: Pain (Moderate) Stop: 12/15/17 08:21 Allopurinol (Zyloprim) 100 mg PO DAILY [facility] Stop: 12/12/17 08:59 Last Admin: 10/19/17 09:21 Dose: 100 mg [place] Oil/[place] Balsam/Trypsin (Venelex) 1 appl TP DAILY [facility] Stop: 12/12/17 15:59 Last Admin: 10/19/17 09:23 Dose: 1 appl Clonazepam (Klonopin) 1 mg PO BID [facility] PRN Reason: Protocol Stop: 12/15/17 08:59 Last Admin: 10/19/17 17:51 Dose: 1 mg Famotidine (Pepcid) 20 mg PO BID [facility] Stop: 12/12/17 08:59 Last Admin: 10/19/17 17:51 Dose: 20 mg Heparin Sodium (Porcine) (Heparin) 5,000 units SUBQ Q12HR [facility] PRN Reason: Protocol Stop: 12/11/17 20:59 Last Admin: 10/19/17 21:33 Dose: 5,000 units Levofloxacin (Levaquin Pb) 500 mg in 100 mls @ 100 mls/hr IV Q24HR [facility] Stop: 12/14/17 05:59 Last Admin: 10/20/17 06:33 Dose: 100 mls/hr Insulin Aspart (Novolog Insulin Sliding Scale) 0 units SUBQ ACHS [facility] PRN Reason: Protocol Stop: 12/11/17 20:59 Last Admin: 10/20/17 07:58 Dose: 2 units Insulin Detemir (Levemir Insulin) 16 units SUBQ DAILY [facility] PRN Reason: Protocol Stop: 12/17/17 08:59 Last Admin: 10/19/17 09:12 Dose: 16 units Lorazepam (Ativan) 0.5 mg PO Q6HR PRN; Protocol PRN Reason: agitation Stop: 12/11/17 19:27 Last Admin: 10/19/17 01:21 Dose: 0.5 mg Magnesium Hydroxide (Milk Of Magnesia) 30 ml PO HS PRN PRN Reason: Constipation Stop: 12/11/17 19:27 Metoprolol Succinate (Toprol Xl) 25 mg PO BID [facility] Stop: 12/12/17 16:59 Last Admin: 10/19/17 17:53 Dose: 25 mg Miscellaneous (Clinical Monitoring) 1 ea MC PRN PRN PRN Reason: RENAL Stop: 12/12/17 10:33 Olanzapine (Zyprexa Zydis) 12.5 mg PO BID [facility] PRN Reason: Protocol Stop: 12/17/17 12:28 Last Admin: 10/19/17 17:51 Dose: 12.5 mg Zolpidem Tartrate (Ambien) 5 mg PO HS PRN PRN Reason: insomnia Stop: 12/11/17 19:27 Last Admin: 10/18/17 20:36 Dose: 5 mg General: Alert, Oriented x3 HEENT: Atraumatic, PERRLA Neck: Supple Cardiovascular: Regular rate, Normal S1, Normal S2 Lungs: Clear to auscultation Abdomen: Bowel sounds, Soft Extremities: no Clubbing, no Cyanosis, no Edema Neurological: Sensation intact Skin: Rash Psych/Mental Status: Mood NL - Procedures Procedures: Procedures Procedure Code Date JEWEL MUSC/FASCIA 20 SQ CM/< 74797 10/12/17 EXCISION OF RIGHT HIP MUSCLE, OPEN APPROACH [id number] 10/12/17 Assessment/Plan - Assessment Assessment: hypernatremia resolved prerenal azotemia improved. hyperglycemia ... stable depression/anxiety gout ... on allopurinol. check uric acid level dementia schizophrenia S/P wound debridement of sacral decubitus ... continue wound care treatment. UTI discharge planning. KEN on CKD ... resolved. hyperkalemia resolved. - Plan Plan: will order repeat cmp,cbc tomorrow AM renal consult -- Dr. Sharp sacral decubitus ... will order Gen Surgical consult -- Dr. Greene for possible wound debridement Gout ... continue allopurinol 100mg PO daily continue wound vac. continue hydrocodone PO for pain control. discharge planning Nutritional Asmnt/Malnutr-PDOC - Dietary Evaluation Malnutrition Findings (Please click <Entered> for more info): Nutritional Asmnt/Malnutrition Start: 10/14/17 17: 10 Text: Status: Complete Freq: Document 10/14/17 17:13 GREY (Rec: 10/14/17 17:25 DEMI [email or web address]) Nutritional Asmnt/Malnutrition Patient General Information Nutritional Screening High Risk Consult Diagnosis pressure ulcer, hyperglycemia, dehydration Pertinent Medical Hx/Surgical Hx DM, dementia, depression, psychosis, schizophrenia, chronic renal insuff Subjective Information Consult received for unstageble pressure ulcer on , high BG on 10/12. Per records, PO intake 50-75%. Pt was on NPO today for surgery- excisional debridement, application of wound VAC Current Diet Order/ Nutrition Support pureed, CCHO 60gm Pertinent Medications novolog Pertinent Labs 10/14 Na 152, K 4.6, BUN 56, Cr 1.8, Glucose 262, POC 236-246 , Mg 2.9 Nutritional Hx/Data Height 1.8 m Height (Calculated Centimeters) 180.3 Current Weight (lbs) 70.76 kg Weight (Calculated Kilograms) 70.8 Weight (Calculated Grams) 78730.4 [place] Body Weight 172 % [place] Body Weight 91 Body Mass Index (BMI) 21.7 Weight Status Approriate GI Symptoms GI Symptoms None Last BM 10/13 Difficult in: None Skin Integrity/Comment: scar to right upper back, decubitus ulcer to buttocks Current %PO Fair (50-74%) Estimated Nutritional Goals BEE in Kcals: Using Current wt Calories/Kcals/Kg 27-32 Kcals Calculated 8450-0310 Protein: Using Current wt Protein g/k-1.2 Protein Calculated 71-85 Fluid: ml 1917-2130ml (1ml/kcal) Nutritional Problem 2. Problem Problem altered nutrition related lab values Etiology hx of DM Signs/Symptoms: Glucose 262, POC 236-246 1. Problem Problem increased nutrition needs ( calorie and protein) Etiology increased metabolic demand for wound healing Signs/Symptoms: decubitus ulcer and surgery Intervention/Recommendation Comments 1. Continue with current diet as ordered. If PO intake low, will consider nutrition supplements 2. MD to consider vit C and zinc for wound healing 3. Monitor PO intake, wt, labs and skin integrity 4. F/U as moderate risk in 3-5 days, 3-10/19, PO check / Expected Outcomes/Goals Expected Outcomes/Goals 1. PO intake to meet at least 75% of nutritional needs. 2. Wt stability, skin to remain intact, labs to approach WNL.
[2017-10-20] MEDS: Insulin Detemir 100 units/mL 10mL Vial SUBQ SCH (08:59)
--- NOTE | 2017-10-20 15:04 | General Progress Note ---
Subjective - Review of Systems Service Date: 10/20/17 Subjective: quiet today Objective - Results Result Diagrams: 10/16/17 09:11 10/18/17 05:54 Recent Labs: Laboratory Last Values WBC 6.7 Th/cmm (4.8-10.8) D 10/16/17 09:11 RBC 4.73 Mil/cmm (3.80-5.80) 10/16/17 09:11 Hgb 13.7 gm/dL (12-16) 10/16/17 09:11 Hct 42.8 % (41.0-60) 10/16/17 09:11 MCV 90.5 fl (80-99) 10/16/17 09:11 MCH 28.9 pg (27.0-31.0) 10/16/17 09:11 MCHC Differential 32.0 pg (28.0-36.0) 10/16/17 09:11 RDW 16.2 % (11.5-20.0) 10/16/17 09:11 Plt Count 162 Th/cmm (150-400) 10/16/17 09:11 MPV 9.7 fl 10/16/17 09:11 Neutrophils % 72.2 % (40.0-80.0) 10/16/17 09:11 Lymphocytes % 19.2 % (20.0-50.0) L 10/16/17 09:11 Monocytes % 5.9 % (2.0-10.0) 10/16/17 09:11 Eosinophils % 1.5 % (0.0-5.0) 10/16/17 09:11 Basophils % 1.2 % (0.0-2.0) 10/16/17 09:11 Eos Smear Source URINE 10/15/17 03:00 Eos Smear Total Cells FEW EOSINOPHILS SEEN (NONE SEEN) 10/15/17 03:00 PT 10.5 SECONDS (9.5-11.5) 10/14/17 06:00 INR 1.01 (0.5-1.4) 10/14/17 06:00 PTT (Actin FS) 25.3 SECONDS (26.0-38.0) L 10/14/17 06:00 Sodium 146 mEq/L (136-145) H 10/18/17 05:54 Potassium 3.9 mEq/L (3.5-5.1) 10/18/17 05:54 Chloride 112 mEq/L (98-107) H 10/18/17 05:54 Carbon Dioxide 29.4 mEq/L (21.0-31.0) 10/18/17 05:54 Anion Gap 8.5 (7.0-16.0) 10/18/17 05:54 BUN 20 mg/dL (7-25) 10/18/17 05:54 Creatinine 1.2 mg/dL (0.7-1.3) 10/18/17 05:54 Est GFR ( Amer) TNP 10/18/17 05:54 Est GFR (Non-Af Amer) TNP 10/18/17 05:54 BUN/Creatinine Ratio 16.7 10/18/17 05:54 Glucose 191 mg/dL (70-105) H D 10/18/17 05:54 POC Glucose 181 MG/DL (70 - 105) H 10/20/17 11:10 Hemoglobin A1c % 10.5 % (4.0-6.0) H 10/14/17 05:26 Uric Acid 5.6 mg/dL (4.4-7.6) 10/20/17 09:10 Calcium 8.8 mg/dL (8.6-10.3) 10/18/17 05:54 Phosphorus 4.1 mg/dL (2.5-5.0) 10/14/17 06:00 Magnesium 2.9 mg/dL (1.9-2.7) H 10/14/17 06:00 Total Bilirubin 0.6 mg/dL (0.3-1.0) 10/16/17 09:11 AST 17 U/L (13-39) 10/16/17 09:11 ALT 13 U/L (7-52) 10/16/17 09:11 Alkaline Phosphatase 81 U/L (34-104) 10/16/17 09:11 Total Protein 6.4 gm/dL (6.0-8.3) 10/16/17 09:11 Albumin 3.0 gm/dL (4.2-5.5) L 10/16/17 09:11 Globulin 3.4 gm/dL 10/16/17 09:11 Albumin/Globulin Ratio 0.9 (1.0-1.8) L 10/16/17 09:11 TSH 0.28 uIU/ml (0.34-5.60) L 10/14/17 06:00 Urine Source CATH 10/15/17 03:00 Urine Color BROWN 10/15/17 03:00 Urine Clarity CLOUDY (CLEAR) 10/15/17 03:00 Urine pH 5.5 (4.6 - 8.0) 10/15/17 03:00 Ur Specific [place] 1.020 (1.005-1.030) 10/15/17 03:00 Urine Protein 100 mg/dL (NEGATIVE) H 10/15/17 03:00 Urine Glucose (UA) >=1000 mg/dL (NEGATIVE) H 10/15/17 03:00 Urine Ketones TRACE mg/dL (NEGATIVE) 10/15/17 03:00 Urine Blood LARGE (NEGATIVE) H 10/15/17 03:00 Urine Nitrate NEGATIVE (NEGATIVE) 10/15/17 03:00 Urine Bilirubin SMALL (NEGATIVE) H 10/15/17 03:00 Urine Ictotest NEGATIVE (NEGATIVE) 10/15/17 03:00 Urine Urobilinogen 0.2 E.U./dL (0.2 - 1.0) 10/15/17 03:00 Ur Leukocyte Esterase TRACE (NEGATIVE) H 10/15/17 03:00 Urine RBC >100 /hpf (0-5) H 10/15/17 03:00 Urine WBC >100 /hpf (0-5) H 10/15/17 03:00 Ur Epithelial Cells OCCASIONAL /lpf (FEW) 10/15/17 03:00 Urine Bacteria MODERATE /hpf (NONE SEEN) H 10/15/17 03:00 Urine Osmolality 749 mOsmol/kg 10/15/17 03:00 Ur Random Sodium 39 mmol/L 10/15/17 03:00 Urine Creatinine 136.0 mg/dl (39.0-259.0) 10/15/17 03:00 - Physical Exam Vitals and I&O: Vital Signs Temp 96.2 F 10/20/17 08:00 Pulse 101 10/20/17 08:21 Resp 18 10/20/17 10:04 BP 131/73 10/20/17 08:21 Pulse Ox 96 10/20/17 08:00 Intake & Output 10/19/17 10/20/17 10/20/17 18:59 06:59 18:59 Intake Total 850 100 Output Total 600 Balance 250 100 Weight (lbs) 78.018 kg 0 g Intake: Intake, IV Amount 100 Levofloxacin 500mg/100mL 100 500 mg In 100 ml @ 100 mls/hr IV Q24HR [facility] Rx#: [id number] Oral 850 Output: Urine 600 Other: # Voids 3 # Bowel Movements 1 Active Medications: Current Medications Acetaminophen (Tylenol) 650 mg PO Q6HR PRN PRN Reason: mild to moderate pain Stop: 12/11/17 19:27 Last Admin: 10/16/17 03:51 Dose: 650 mg Acetaminophen/Hydrocodone Bitart ([place] 5mg/325mg) 1 tab PO Q6H PRN PRN Reason: Pain (Moderate) Stop: 12/15/17 08:21 Allopurinol (Zyloprim) 100 mg PO DAILY [facility] Stop: 12/12/17 08:59 Last Admin: 10/20/17 08:21 Dose: 100 mg [place] Oil/[place] Balsam/Trypsin (Venelex) 1 appl TP DAILY [facility] Stop: 12/12/17 15:59 Last Admin: 10/20/17 08:22 Dose: 1 appl Clonazepam (Klonopin) 1 mg PO BID [facility] PRN Reason: Protocol Stop: 12/15/17 08:59 Last Admin: 10/20/17 08:22 Dose: 1 mg Famotidine (Pepcid) 20 mg PO BID [facility] Stop: 12/12/17 08:59 Last Admin: 10/20/17 08:22 Dose: 20 mg Heparin Sodium (Porcine) (Heparin) 5,000 units SUBQ Q12HR [facility] PRN Reason: Protocol Stop: 12/11/17 20:59 Last Admin: 10/20/17 08:23 Dose: 5,000 units Levofloxacin (Levaquin Pb) 500 mg in 100 mls @ 100 mls/hr IV Q24HR [facility] Stop: 12/14/17 05:59 Last Infusion: 10/20/17 10:00 Dose: Infused Insulin Aspart (Novolog Insulin Sliding Scale) 0 units SUBQ ACHS [facility] PRN Reason: Protocol Stop: 12/11/17 20:59 Last Admin: 10/20/17 11:56 Dose: 2 units Insulin Detemir (Levemir Insulin) 16 units SUBQ DAILY [facility] PRN Reason: Protocol Stop: 12/17/17 08:59 Last Admin: 10/20/17 08:59 Dose: 16 units Lorazepam (Ativan) 0.5 mg PO Q6HR PRN; Protocol PRN Reason: agitation Stop: 12/11/17 19:27 Last Admin: 10/19/17 01:21 Dose: 0.5 mg Magnesium Hydroxide (Milk Of Magnesia) 30 ml PO HS PRN PRN Reason: Constipation Stop: 12/11/17 19:27 Metoprolol Succinate (Toprol Xl) 25 mg PO BID [facility] Stop: 12/12/17 16:59 Last Admin: 10/20/17 08:21 Dose: 25 mg Miscellaneous (Clinical Monitoring) 1 ea MC PRN PRN PRN Reason: RENAL Stop: 12/12/17 10:33 Olanzapine (Zyprexa Zydis) 12.5 mg PO BID [facility] PRN Reason: Protocol Stop: 12/17/17 12:28 Last Admin: 10/20/17 08:21 Dose: 12.5 mg Zolpidem Tartrate (Ambien) 5 mg PO HS PRN PRN Reason: insomnia Stop: 12/11/17 19:27 Last Admin: 10/18/17 20:36 Dose: 5 mg General: Alert, Oriented x3, No acute distress HEENT: Atraumatic, PERRLA Neck: Supple Cardiovascular: Regular rate, Normal S1, Normal S2 Lungs: Clear to auscultation Abdomen: Bowel sounds, Soft Extremities: no Clubbing, no Cyanosis, no Edema Neurological: Sensation intact Skin: Rash Psych/Mental Status: Mood NL - Procedures Procedures: Procedures Procedure Code Date JEWEL MUSC/FASCIA 20 SQ CM/< 51004 10/12/17 EXCISION OF RIGHT HIP MUSCLE, OPEN APPROACH [id number] 10/12/17 Assessment/Plan - Assessment Assessment: KEN on CKD Stage 4 decub ulcer S/P debridement Severe dehydration Ess HTN Type 2 DM Psychosis - Plan Plan: Lab - Result Diagrams 10/14/17 06:00 10/14/17 06:00 Current Medications Acetaminophen (Tylenol) 650 mg PO Q6HR PRN PRN Reason: mild to moderate pain Stop: 12/11/17 19:27 Allopurinol (Zyloprim) 100 mg PO DAILY [facility] Stop: 12/12/17 08:59 Last Admin: 10/14/17 10:00 Dose: Not Given [place] Oil/[place] Balsam/Trypsin (Venelex) 1 appl TP DAILY [facility] Stop: 12/12/17 15:59 Last Admin: 10/14/17 10:00 Dose: 1 appl Famotidine (Pepcid) 20 mg PO BID [facility] Stop: 12/12/17 08:59 Last Admin: 10/14/17 18:22 Dose: 20 mg Heparin Sodium (Porcine) (Heparin) 5,000 units SUBQ Q12HR [facility] PRN Reason: Protocol Stop: 12/11/17 20:59 Last Admin: 10/14/17 07:50 Dose: Not Given Ceftriaxone Sodium 1 gm/ (Sodium Chloride) 50 mls @ 100 mls/hr IV Q24HR [facility] Stop: 12/11/17 16:44 Last Admin: 10/14/17 17:45 Dose: 100 mls/hr Insulin Aspart (Novolog Insulin Sliding Scale) 0 units SUBQ ACHS I[facility]EL PRN Reason: Protocol Stop: 12/11/17 20:59 Last Admin: 10/14/17 18:23 Dose: 6 units Lorazepam (Ativan) 0.5 mg PO Q6HR PRN; Protocol PRN Reason: agitation Stop: 12/11/17 19:27 Magnesium Hydroxide (Milk Of Magnesia) 30 ml PO HS PRN PRN Reason: Constipation Stop: 12/11/17 19:27 Metoprolol Succinate (Toprol Xl) 25 mg PO BID [facility] Stop: 12/12/17 16:59 Last Admin: 10/14/17 18:23 Dose: 25 mg Miscellaneous (Clinical Monitoring) 1 ea MC PRN PRN PRN Reason: RENAL Stop: 12/12/17 10:33 Olanzapine (Zyprexa Zydis) 5 mg PO BID I[facility]EL PRN Reason: Protocol Stop: 12/13/17 16:59 Zolpidem Tartrate (Ambien) 5 mg PO HS PRN PRN Reason: insomnia Stop: 12/11/17 19:2 Lab - Result Diagrams 10/16/17 09:11 10/18/17 05:54 Na up to 146 Kidney fnc gradually improving agree w/ Allopurinol f/u electrolytes, agree w/ Levaquin continue hydration BS better control increase Detemir Nutritional Asmnt/Malnutr-PDOC - Dietary Evaluation Malnutrition Findings (Please click <Entered> for more info): Nutritional Asmnt/Malnutrition Start: 10/14/17 17: 10 Text: Status: Complete Freq: Document 10/14/17 17:13 GREY (Rec: 10/14/17 17:25 GREY [email or web address]) Nutritional Asmnt/Malnutrition Patient General Information Nutritional Screening High Risk Consult Diagnosis pressure ulcer, hyperglycemia, dehydration Pertinent Medical Hx/Surgical Hx DM, dementia, depression, psychosis, schizophrenia, chronic renal insuff Subjective Information Consult received for unstageble pressure ulcer on , high BG on 10/12. Per records, PO intake 50-75%. Pt was on NPO today for surgery- excisional debridement, application of wound VAC Current Diet Order/ Nutrition Support pureed, CCHO 60gm Pertinent Medications novolog Pertinent Labs 10/14 Na 152, K 4.6, BUN 56, Cr 1.8, Glucose 262, POC 236-246 , Mg 2.9 Nutritional Hx/Data Height 1.8 m Height (Calculated Centimeters) 180.3 Current Weight (lbs) 70.76 kg Weight (Calculated Kilograms) 70.8 Weight (Calculated Grams) 04604.4 [place] Body Weight 172 % [place] Body Weight 91 Body Mass Index (BMI) 21.7 Weight Status Approriate GI Symptoms GI Symptoms None Last BM 10/13 Difficult in: None Skin Integrity/Comment: scar to right upper back, decubitus ulcer to buttocks Current %PO Fair (50-74%) Estimated Nutritional Goals BEE in Kcals: Using Current wt Calories/Kcals/Kg 27-32 Kcals Calculated 1502-0934 Protein: Using Current wt Protein g/k-1.2 Protein Calculated 71-85 Fluid: ml 1917-2130ml (1ml/kcal) Nutritional Problem 2. Problem Problem altered nutrition related lab values Etiology hx of DM Signs/Symptoms: Glucose 262, POC 236-246 1. Problem Problem increased nutrition needs ( calorie and protein) Etiology increased metabolic demand for wound healing Signs/Symptoms: decubitus ulcer and surgery Intervention/Recommendation Comments 1. Continue with current diet as ordered. If PO intake low, will consider nutrition supplements 2. MD to consider vit C and zinc for wound healing 3. Monitor PO intake, wt, labs and skin integrity 4. F/U as moderate risk in 3-5 days, 3/2-3/4, PO check / Expected Outcomes/Goals Expected Outcomes/Goals 1. PO intake to meet at least 75% of nutritional needs. 2. Wt stability, skin to remain intact, labs to approach WNL.
--- NOTE | 2017-10-20 15:05 | General Progress Note ---
Subjective - Review of Systems Subjective: quiet today Objective - Results Result Diagrams: 10/16/17 09:11 10/18/17 05:54 Recent Labs: Laboratory Last Values WBC 6.7 Th/cmm (4.8-10.8) D 10/16/17 09:11 RBC 4.73 Mil/cmm (3.80-5.80) 10/16/17 09:11 Hgb 13.7 gm/dL (12-16) 10/16/17 09:11 Hct 42.8 % (41.0-60) 10/16/17 09:11 MCV 90.5 fl (80-99) 10/16/17 09:11 MCH 28.9 pg (27.0-31.0) 10/16/17 09:11 MCHC Differential 32.0 pg (28.0-36.0) 10/16/17 09:11 RDW 16.2 % (11.5-20.0) 10/16/17 09:11 Plt Count 162 Th/cmm (150-400) 10/16/17 09:11 MPV 9.7 fl 10/16/17 09:11 Neutrophils % 72.2 % (40.0-80.0) 10/16/17 09:11 Lymphocytes % 19.2 % (20.0-50.0) L 10/16/17 09:11 Monocytes % 5.9 % (2.0-10.0) 10/16/17 09:11 Eosinophils % 1.5 % (0.0-5.0) 10/16/17 09:11 Basophils % 1.2 % (0.0-2.0) 10/16/17 09:11 Eos Smear Source URINE 10/15/17 03:00 Eos Smear Total Cells FEW EOSINOPHILS SEEN (NONE SEEN) 10/15/17 03:00 PT 10.5 SECONDS (9.5-11.5) 10/14/17 06:00 INR 1.01 (0.5-1.4) 10/14/17 06:00 PTT (Actin FS) 25.3 SECONDS (26.0-38.0) L 10/14/17 06:00 Sodium 146 mEq/L (136-145) H 10/18/17 05:54 Potassium 3.9 mEq/L (3.5-5.1) 10/18/17 05:54 Chloride 112 mEq/L (98-107) H 10/18/17 05:54 Carbon Dioxide 29.4 mEq/L (21.0-31.0) 10/18/17 05:54 Anion Gap 8.5 (7.0-16.0) 10/18/17 05:54 BUN 20 mg/dL (7-25) 10/18/17 05:54 Creatinine 1.2 mg/dL (0.7-1.3) 10/18/17 05:54 Est GFR ( Amer) TNP 10/18/17 05:54 Est GFR (Non-Af Amer) TNP 10/18/17 05:54 BUN/Creatinine Ratio 16.7 10/18/17 05:54 Glucose 191 mg/dL (70-105) H D 10/18/17 05:54 POC Glucose 181 MG/DL (70 - 105) H 10/20/17 11:10 Hemoglobin A1c % 10.5 % (4.0-6.0) H 10/14/17 05:26 Uric Acid 5.6 mg/dL (4.4-7.6) 10/20/17 09:10 Calcium 8.8 mg/dL (8.6-10.3) 10/18/17 05:54 Phosphorus 4.1 mg/dL (2.5-5.0) 10/14/17 06:00 Magnesium 2.9 mg/dL (1.9-2.7) H 10/14/17 06:00 Total Bilirubin 0.6 mg/dL (0.3-1.0) 10/16/17 09:11 AST 17 U/L (13-39) 10/16/17 09:11 ALT 13 U/L (7-52) 10/16/17 09:11 Alkaline Phosphatase 81 U/L (34-104) 10/16/17 09:11 Total Protein 6.4 gm/dL (6.0-8.3) 10/16/17 09:11 Albumin 3.0 gm/dL (4.2-5.5) L 10/16/17 09:11 Globulin 3.4 gm/dL 10/16/17 09:11 Albumin/Globulin Ratio 0.9 (1.0-1.8) L 10/16/17 09:11 TSH 0.28 uIU/ml (0.34-5.60) L 10/14/17 06:00 Urine Source CATH 10/15/17 03:00 Urine Color BROWN 10/15/17 03:00 Urine Clarity CLOUDY (CLEAR) 10/15/17 03:00 Urine pH 5.5 (4.6 - 8.0) 10/15/17 03:00 Ur Specific [place] 1.020 (1.005-1.030) 10/15/17 03:00 Urine Protein 100 mg/dL (NEGATIVE) H 10/15/17 03:00 Urine Glucose (UA) >=1000 mg/dL (NEGATIVE) H 10/15/17 03:00 Urine Ketones TRACE mg/dL (NEGATIVE) 10/15/17 03:00 Urine Blood LARGE (NEGATIVE) H 10/15/17 03:00 Urine Nitrate NEGATIVE (NEGATIVE) 10/15/17 03:00 Urine Bilirubin SMALL (NEGATIVE) H 10/15/17 03:00 Urine Ictotest NEGATIVE (NEGATIVE) 10/15/17 03:00 Urine Urobilinogen 0.2 E.U./dL (0.2 - 1.0) 10/15/17 03:00 Ur Leukocyte Esterase TRACE (NEGATIVE) H 10/15/17 03:00 Urine RBC >100 /hpf (0-5) H 10/15/17 03:00 Urine WBC >100 /hpf (0-5) H 10/15/17 03:00 Ur Epithelial Cells OCCASIONAL /lpf (FEW) 10/15/17 03:00 Urine Bacteria MODERATE /hpf (NONE SEEN) H 10/15/17 03:00 Urine Osmolality 749 mOsmol/kg 10/15/17 03:00 Ur Random Sodium 39 mmol/L 10/15/17 03:00 Urine Creatinine 136.0 mg/dl (39.0-259.0) 10/15/17 03:00 - Physical Exam Vitals and I&O: Vital Signs Temp 96.2 F 10/20/17 08:00 Pulse 101 10/20/17 08:21 Resp 18 10/20/17 10:04 BP 131/73 10/20/17 08:21 Pulse Ox 96 10/20/17 08:00 Intake & Output 10/19/17 10/20/17 10/20/17 18:59 06:59 18:59 Intake Total 850 100 Output Total 600 Balance 250 100 Weight (lbs) 78.018 kg 0 g Intake: Intake, IV Amount 100 Levofloxacin 500mg/100mL 100 500 mg In 100 ml @ 100 mls/hr IV Q24HR [facility] Rx#: [id number] Oral 850 Output: Urine 600 Other: # Voids 3 # Bowel Movements 1 Active Medications: Current Medications Acetaminophen (Tylenol) 650 mg PO Q6HR PRN PRN Reason: mild to moderate pain Stop: 12/11/17 19:27 Last Admin: 10/16/17 03:51 Dose: 650 mg Acetaminophen/Hydrocodone Bitart ([place] 5mg/325mg) 1 tab PO Q6H PRN PRN Reason: Pain (Moderate) Stop: 12/15/17 08:21 Allopurinol (Zyloprim) 100 mg PO DAILY [facility] Stop: 12/12/17 08:59 Last Admin: 10/20/17 08:21 Dose: 100 mg [place] Oil/[place] Balsam/Trypsin (Venelex) 1 appl TP DAILY [facility] Stop: 12/12/17 15:59 Last Admin: 10/20/17 08:22 Dose: 1 appl Clonazepam (Klonopin) 1 mg PO BID [facility] PRN Reason: Protocol Stop: 12/15/17 08:59 Last Admin: 10/20/17 08:22 Dose: 1 mg Famotidine (Pepcid) 20 mg PO BID [facility] Stop: 12/12/17 08:59 Last Admin: 10/20/17 08:22 Dose: 20 mg Heparin Sodium (Porcine) (Heparin) 5,000 units SUBQ Q12HR [facility] PRN Reason: Protocol Stop: 12/11/17 20:59 Last Admin: 10/20/17 08:23 Dose: 5,000 units Levofloxacin (Levaquin Pb) 500 mg in 100 mls @ 100 mls/hr IV Q24HR [facility] Stop: 12/14/17 05:59 Last Infusion: 10/20/17 10:00 Dose: Infused Insulin Aspart (Novolog Insulin Sliding Scale) 0 units SUBQ ACHS [facility] PRN Reason: Protocol Stop: 12/11/17 20:59 Last Admin: 10/20/17 11:56 Dose: 2 units Insulin Detemir (Levemir Insulin) 16 units SUBQ DAILY [facility] PRN Reason: Protocol Stop: 12/17/17 08:59 Last Admin: 10/20/17 08:59 Dose: 16 units Lorazepam (Ativan) 0.5 mg PO Q6HR PRN; Protocol PRN Reason: agitation Stop: 12/11/17 19:27 Last Admin: 10/19/17 01:21 Dose: 0.5 mg Magnesium Hydroxide (Milk Of Magnesia) 30 ml PO HS PRN PRN Reason: Constipation Stop: 12/11/17 19:27 Metoprolol Succinate (Toprol Xl) 25 mg PO BID [facility] Stop: 12/12/17 16:59 Last Admin: 10/20/17 08:21 Dose: 25 mg Miscellaneous (Clinical Monitoring) 1 ea MC PRN PRN PRN Reason: RENAL Stop: 12/12/17 10:33 Olanzapine (Zyprexa Zydis) 12.5 mg PO BID [facility]EL PRN Reason: Protocol Stop: 12/17/17 12:28 Last Admin: 10/20/17 08:21 Dose: 12.5 mg Zolpidem Tartrate (Ambien) 5 mg PO HS PRN PRN Reason: insomnia Stop: 12/11/17 19:27 Last Admin: 10/18/17 20:36 Dose: 5 mg General: Alert, Oriented x3, No acute distress HEENT: Atraumatic, PERRLA Neck: Supple Cardiovascular: Regular rate, Normal S1, Normal S2 Lungs: Clear to auscultation Abdomen: Bowel sounds, Soft Extremities: no Clubbing, no Cyanosis, no Edema Neurological: Sensation intact Skin: Rash Psych/Mental Status: Mood NL - Procedures Procedures: Procedures Procedure Code Date JEWEL MUSC/FASCIA 20 SQ CM/< 56690 10/12/17 EXCISION OF RIGHT HIP MUSCLE, OPEN APPROACH [id number] 10/12/17 Assessment/Plan - Assessment Assessment: KEN on CKD Stage 4 decub ulcer S/P debridement Severe dehydration Ess HTN Type 2 DM Psychosis - Plan Plan: Lab - Result Diagrams 10/14/17 06:00 10/14/17 06:00 Current Medications Acetaminophen (Tylenol) 650 mg PO Q6HR PRN PRN Reason: mild to moderate pain Stop: 12/11/17 19:27 Allopurinol (Zyloprim) 100 mg PO DAILY [facility] Stop: 12/12/17 08:59 Last Admin: 10/14/17 10:00 Dose: Not Given [place] Oil/[place] Balsam/Trypsin (Venelex) 1 appl TP DAILY [facility] Stop: 12/12/17 15:59 Last Admin: 10/14/17 10:00 Dose: 1 appl Famotidine (Pepcid) 20 mg PO BID [facility] Stop: 12/12/17 08:59 Last Admin: 10/14/17 18:22 Dose: 20 mg Heparin Sodium (Porcine) (Heparin) 5,000 units SUBQ Q12HR [facility] PRN Reason: Protocol Stop: 12/11/17 20:59 Last Admin: 10/14/17 07:50 Dose: Not Given Ceftriaxone Sodium 1 gm/ (Sodium Chloride) 50 mls @ 100 mls/hr IV Q24HR [facility] Stop: 12/11/17 16:44 Last Admin: 10/14/17 17:45 Dose: 100 mls/hr Insulin Aspart (Novolog Insulin Sliding Scale) 0 units SUBQ ACHS [facility] PRN Reason: Protocol Stop: 12/11/17 20:59 Last Admin: 10/14/17 18:23 Dose: 6 units Lorazepam (Ativan) 0.5 mg PO Q6HR PRN; Protocol PRN Reason: agitation Stop: 12/11/17 19:27 Magnesium Hydroxide (Milk Of Magnesia) 30 ml PO HS PRN PRN Reason: Constipation Stop: 12/11/17 19:27 Metoprolol Succinate (Toprol Xl) 25 mg PO BID [facility] Stop: 12/12/17 16:59 Last Admin: 10/14/17 18:23 Dose: 25 mg Miscellaneous (Clinical Monitoring) 1 ea MC PRN PRN PRN Reason: RENAL Stop: 12/12/17 10:33 Olanzapine (Zyprexa Zydis) 5 mg PO BID IMMANUEL PRN Reason: Protocol Stop: 12/13/17 16:59 Zolpidem Tartrate (Ambien) 5 mg PO HS PRN PRN Reason: insomnia Stop: 12/11/17 19:2 Lab - Result Diagrams 10/16/17 09:11 10/18/17 05:54 Na up to 146 Kidney fnc gradually improving agree w/ Allopurinol f/u electrolytes, agree w/ Levaquin continue hydration BS better control increase Detemir Nutritional Asmnt/Malnutr-PDOC - Dietary Evaluation Malnutrition Findings (Please click <Entered> for more info): Nutritional Asmnt/Malnutrition Start: 10/14/17 17: 10 Text: Status: Complete Freq: Document 10/14/17 17:13 GREY (Rec: 10/14/17 17:25 GREY [email or web address]) Nutritional Asmnt/Malnutrition Patient General Information Nutritional Screening High Risk Consult Diagnosis pressure ulcer, hyperglycemia, dehydration Pertinent Medical Hx/Surgical Hx DM, dementia, depression, psychosis, schizophrenia, chronic renal insuff Subjective Information Consult received for unstageble pressure ulcer on , high BG on 10/12. Per records, PO intake 50-75%. Pt was on NPO today for surgery- excisional debridement, application of wound VAC Current Diet Order/ Nutrition Support pureed, CCHO 60gm Pertinent Medications novolog Pertinent Labs 10/14 Na 152, K 4.6, BUN 56, Cr 1.8, Glucose 262, POC 236-246 , Mg 2.9 Nutritional Hx/Data Height 1.8 m Height (Calculated Centimeters) 180.3 Current Weight (lbs) 70.76 kg Weight (Calculated Kilograms) 70.8 Weight (Calculated Grams) 01671.4 [place] Body Weight 172 % [place] Body Weight 91 Body Mass Index (BMI) 21.7 Weight Status Approriate GI Symptoms GI Symptoms None Last BM 10/13 Difficult in: None Skin Integrity/Comment: scar to right upper back, decubitus ulcer to buttocks Current %PO Fair (50-74%) Estimated Nutritional Goals BEE in Kcals: Using Current wt Calories/Kcals/Kg 27-32 Kcals Calculated 3755-9938 Protein: Using Current wt Protein g/k-1.2 Protein Calculated 71-85 Fluid: ml 1917-2130ml (1ml/kcal) Nutritional Problem 2. Problem Problem altered nutrition related lab values Etiology hx of DM Signs/Symptoms: Glucose 262, POC 236-246 1. Problem Problem increased nutrition needs ( calorie and protein) Etiology increased metabolic demand for wound healing Signs/Symptoms: decubitus ulcer and surgery Intervention/Recommendation Comments 1. Continue with current diet as ordered. If PO intake low, will consider nutrition supplements 2. MD to consider vit C and zinc for wound healing 3. Monitor PO intake, wt, labs and skin integrity 4. F/U as moderate risk in 3-5 days, 3/2-3/4, PO check 3/2 Expected Outcomes/Goals Expected Outcomes/Goals 1. PO intake to meet at least 75% of nutritional needs. 2. Wt stability, skin to remain intact, labs to approach WNL.
[2017-10-21] MEDS: Levofloxacin 500mg/100mL 500 MG/100 ML BAG IV SCH (06:19)
--- NOTE | 2017-10-21 08:16 | General Progress Note ---
Subjective - Review of Systems Service Date: 10/21/17 Subjective: Patient still aggressive to staff. Patient blood sugar much better controlled on levemir 16u Daily. Objective - Results Result Diagrams: 10/16/17 09:11 10/18/17 05:54 Recent Labs: Laboratory Last Values WBC 6.7 Th/cmm (4.8-10.8) D 10/16/17 09:11 RBC 4.73 Mil/cmm (3.80-5.80) 10/16/17 09:11 Hgb 13.7 gm/dL (12-16) 10/16/17 09:11 Hct 42.8 % (41.0-60) 10/16/17 09:11 MCV 90.5 fl (80-99) 10/16/17 09:11 MCH 28.9 pg (27.0-31.0) 10/16/17 09:11 MCHC Differential 32.0 pg (28.0-36.0) 10/16/17 09:11 RDW 16.2 % (11.5-20.0) 10/16/17 09:11 Plt Count 162 Th/cmm (150-400) 10/16/17 09:11 MPV 9.7 fl 10/16/17 09:11 Neutrophils % 72.2 % (40.0-80.0) 10/16/17 09:11 Lymphocytes % 19.2 % (20.0-50.0) L 10/16/17 09:11 Monocytes % 5.9 % (2.0-10.0) 10/16/17 09:11 Eosinophils % 1.5 % (0.0-5.0) 10/16/17 09:11 Basophils % 1.2 % (0.0-2.0) 10/16/17 09:11 Eos Smear Source URINE 10/15/17 03:00 Eos Smear Total Cells FEW EOSINOPHILS SEEN (NONE SEEN) 10/15/17 03:00 PT 10.5 SECONDS (9.5-11.5) 10/14/17 06:00 INR 1.01 (0.5-1.4) 10/14/17 06:00 PTT (Actin FS) 25.3 SECONDS (26.0-38.0) L 10/14/17 06:00 Sodium 146 mEq/L (136-145) H 10/18/17 05:54 Potassium 3.9 mEq/L (3.5-5.1) 10/18/17 05:54 Chloride 112 mEq/L (98-107) H 10/18/17 05:54 Carbon Dioxide 29.4 mEq/L (21.0-31.0) 10/18/17 05:54 Anion Gap 8.5 (7.0-16.0) 10/18/17 05:54 BUN 20 mg/dL (7-25) 10/18/17 05:54 Creatinine 1.2 mg/dL (0.7-1.3) 10/18/17 05:54 Est GFR ( Amer) TNP 10/18/17 05:54 Est GFR (Non-Af Amer) TNP 10/18/17 05:54 BUN/Creatinine Ratio 16.7 10/18/17 05:54 Glucose 191 mg/dL (70-105) H D 10/18/17 05:54 POC Glucose 187 MG/DL (70 - 105) H 10/20/17 21:05 Hemoglobin A1c % 10.5 % (4.0-6.0) H 10/14/17 05:26 Uric Acid 5.6 mg/dL (4.4-7.6) 10/20/17 09:10 Calcium 8.8 mg/dL (8.6-10.3) 10/18/17 05:54 Phosphorus 4.1 mg/dL (2.5-5.0) 10/14/17 06:00 Magnesium 2.9 mg/dL (1.9-2.7) H 10/14/17 06:00 Total Bilirubin 0.6 mg/dL (0.3-1.0) 10/16/17 09:11 AST 17 U/L (13-39) 10/16/17 09:11 ALT 13 U/L (7-52) 10/16/17 09:11 Alkaline Phosphatase 81 U/L (34-104) 10/16/17 09:11 Total Protein 6.4 gm/dL (6.0-8.3) 10/16/17 09:11 Albumin 3.0 gm/dL (4.2-5.5) L 10/16/17 09:11 Globulin 3.4 gm/dL 10/16/17 09:11 Albumin/Globulin Ratio 0.9 (1.0-1.8) L 10/16/17 09:11 TSH 0.28 uIU/ml (0.34-5.60) L 10/14/17 06:00 Urine Source CATH 10/15/17 03:00 Urine Color BROWN 10/15/17 03:00 Urine Clarity CLOUDY (CLEAR) 10/15/17 03:00 Urine pH 5.5 (4.6 - 8.0) 10/15/17 03:00 Ur Specific [place] 1.020 (1.005-1.030) 10/15/17 03:00 Urine Protein 100 mg/dL (NEGATIVE) H 10/15/17 03:00 Urine Glucose (UA) >=1000 mg/dL (NEGATIVE) H 10/15/17 03:00 Urine Ketones TRACE mg/dL (NEGATIVE) 10/15/17 03:00 Urine Blood LARGE (NEGATIVE) H 10/15/17 03:00 Urine Nitrate NEGATIVE (NEGATIVE) 10/15/17 03:00 Urine Bilirubin SMALL (NEGATIVE) H 10/15/17 03:00 Urine Ictotest NEGATIVE (NEGATIVE) 10/15/17 03:00 Urine Urobilinogen 0.2 E.U./dL (0.2 - 1.0) 10/15/17 03:00 Ur Leukocyte Esterase TRACE (NEGATIVE) H 10/15/17 03:00 Urine RBC >100 /hpf (0-5) H 10/15/17 03:00 Urine WBC >100 /hpf (0-5) H 10/15/17 03:00 Ur Epithelial Cells OCCASIONAL /lpf (FEW) 10/15/17 03:00 Urine Bacteria MODERATE /hpf (NONE SEEN) H 10/15/17 03:00 Urine Osmolality 749 mOsmol/kg 10/15/17 03:00 Ur Random Sodium 39 mmol/L 10/15/17 03:00 Urine Creatinine 136.0 mg/dl (39.0-259.0) 10/15/17 03:00 - Physical Exam Vitals and I&O: Vital Signs Temp 97.6 F 10/21/17 00:00 Pulse 105 10/21/17 00:00 Resp 18 10/21/17 00:00 BP 133/76 10/21/17 00:00 Pulse Ox 95 10/21/17 00:00 Intake & Output 10/20/17 10/21/17 10/21/17 18:59 06:59 18:59 Intake Total 100 150 Output Total 300 Balance 100 -150 Weight (lbs) 77.111 kg Intake: Intake, IV Amount 100 Levofloxacin 500mg/100mL 100 500 mg In 100 ml @ 100 mls/hr IV Q24HR [facility] Rx#: [id number] Oral 150 Output: Urine 300 Other: # Bowel Movements 0 Active Medications: Current Medications Acetaminophen (Tylenol) 650 mg PO Q6HR PRN PRN Reason: mild to moderate pain Stop: 12/11/17 19:27 Last Admin: 10/16/17 03:51 Dose: 650 mg Acetaminophen/Hydrocodone Bitart ([place] 5mg/325mg) 1 tab PO Q6H PRN PRN Reason: Pain (Moderate) Stop: 12/15/17 08:21 Allopurinol (Zyloprim) 100 mg PO DAILY [facility] Stop: 12/12/17 08:59 Last Admin: 10/20/17 08:21 Dose: 100 mg [place] Oil/[place] Balsam/Trypsin (Venelex) 1 appl TP DAILY [facility] Stop: 12/12/17 15:59 Last Admin: 10/20/17 08:22 Dose: 1 appl Clonazepam (Klonopin) 1 mg PO BID [facility] PRN Reason: Protocol Stop: 12/15/17 08:59 Last Admin: 10/20/17 17:23 Dose: 1 mg Famotidine (Pepcid) 20 mg PO BID [facility] Stop: 12/12/17 08:59 Last Admin: 10/20/17 17:22 Dose: 20 mg Heparin Sodium (Porcine) (Heparin) 5,000 units SUBQ Q12HR [facility] PRN Reason: Protocol Stop: 12/11/17 20:59 Last Admin: 10/20/17 21:40 Dose: 5,000 units Levofloxacin (Levaquin Pb) 500 mg in 100 mls @ 100 mls/hr IV Q24HR [facility] Stop: 12/14/17 05:59 Last Admin: 10/21/17 06:19 Dose: 100 mls/hr Insulin Aspart (Novolog Insulin Sliding Scale) 0 units SUBQ ACHS [facility] PRN Reason: Protocol Stop: 12/11/17 20:59 Last Admin: 10/20/17 21:40 Dose: 2 units Insulin Detemir (Levemir Insulin) 16 units SUBQ DAILY [facility] PRN Reason: Protocol Stop: 12/17/17 08:59 Last Admin: 10/20/17 08:59 Dose: 16 units Lorazepam (Ativan) 0.5 mg PO Q6HR PRN; Protocol PRN Reason: agitation Stop: 12/11/17 19:27 Last Admin: 10/19/17 01:21 Dose: 0.5 mg Magnesium Hydroxide (Milk Of Magnesia) 30 ml PO HS PRN PRN Reason: Constipation Stop: 12/11/17 19:27 Metoprolol Succinate (Toprol Xl) 25 mg PO BID [facility] Stop: 12/12/17 16:59 Last Admin: 10/20/17 17:22 Dose: 25 mg Miscellaneous (Clinical Monitoring) 1 ea MC PRN PRN PRN Reason: RENAL Stop: 12/12/17 10:33 Olanzapine (Zyprexa Zydis) 12.5 mg PO BID IMM[facility]UEL PRN Reason: Protocol Stop: 12/17/17 12:28 Last Admin: 10/20/17 17:22 Dose: 12.5 mg Zolpidem Tartrate (Ambien) 5 mg PO HS PRN PRN Reason: insomnia Stop: 12/11/17 19:27 Last Admin: 10/18/17 20:36 Dose: 5 mg General: Alert, Oriented x3, No acute distress HEENT: Atraumatic, PERRLA Neck: Supple Cardiovascular: Regular rate, Normal S1, Normal S2 Lungs: Clear to auscultation Abdomen: Bowel sounds, Soft Extremities: no Clubbing, no Cyanosis, no Edema Neurological: Sensation intact Skin: Rash Psych/Mental Status: Mood NL - Procedures Procedures: Procedures Procedure Code Date JEWEL MUSC/FASCIA 20 SQ CM/< 93256 10/12/17 EXCISION OF RIGHT HIP MUSCLE, OPEN APPROACH [id number] 10/12/17 Assessment/Plan - Assessment Assessment: hypernatremia resolved prerenal azotemia improved. hyperglycemia ... stable depression/anxiety gout ... on allopurinol. check uric acid level dementia schizophrenia S/P wound debridement of sacral decubitus ... continue wound care treatment. UTI KEN on CKD ... resolved. hyperkalemia resolved. discharge planning. - Plan Plan: will order cmp this AM renal consult -- Dr. Sharp sacral decubitus ... will order Gen Surgical consult -- Dr. Greene for possible wound debridement Gout ... continue allopurinol 100mg PO daily continue wound vac. continue hydrocodone PO for pain control. discharge planning Nutritional Asmnt/Malnutr-PDOC - Dietary Evaluation Malnutrition Findings (Please click <Entered> for more info): Nutritional Asmnt/Malnutrition Start: 10/14/17 17: 10 Text: Status: Complete Freq: Document 10/14/17 17:13 [facility] (Rec: 10/14/17 17:25 [facility] Nutritional Asmnt/Malnutrition Patient General Information Nutritional Screening High Risk Consult Diagnosis pressure ulcer, hyperglycemia, dehydration Pertinent Medical Hx/Surgical Hx DM, dementia, depression, psychosis, schizophrenia, chronic renal insuff Subjective Information Consult received for unstageble pressure ulcer on , high BG on 10/12. Per records, PO intake 50-75%. Pt was on NPO today for surgery- excisional debridement, application of wound VAC Current Diet Order/ Nutrition Support pureed, CCHO 60gm Pertinent Medications novolog Pertinent Labs 10/14 Na 152, K 4.6, BUN 56, Cr 1.8, Glucose 262, POC 236-246 , Mg 2.9 Nutritional Hx/Data Height 1.8 m Height (Calculated Centimeters) 180.3 Current Weight (lbs) 70.76 kg Weight (Calculated Kilograms) 70.8 Weight (Calculated Grams) 94258.4 [place] Body Weight 172 % [place] Body Weight 91 Body Mass Index (BMI) 21.7 Weight Status Approriate GI Symptoms GI Symptoms None Last BM 10/13 Difficult in: None Skin Integrity/Comment: scar to right upper back, decubitus ulcer to buttocks Current %PO Fair (50-74%) Estimated Nutritional Goals BEE in Kcals: Using Current wt Calories/Kcals/Kg 27-32 Kcals Calculated 7347-7999 Protein: Using Current wt Protein g/k-1.2 Protein Calculated 71-85 Fluid: ml 1916-2129ml (1ml/kcal) Nutritional Problem 2. Problem Problem altered nutrition related lab values Etiology hx of DM Signs/Symptoms: Glucose 262, POC 236-246 1. Problem Problem increased nutrition needs ( calorie and protein) Etiology increased metabolic demand for wound healing Signs/Symptoms: decubitus ulcer and surgery Intervention/Recommendation Comments 1. Continue with current diet as ordered. If PO intake low, will consider nutrition supplements 2. MD to consider vit C and zinc for wound healing 3. Monitor PO intake, wt, labs and skin integrity 4. F/U as moderate risk in 3-5 days, 2-10/19, PO check 3/2 Expected Outcomes/Goals Expected Outcomes/Goals 1. PO intake to meet at least 75% of nutritional needs. 2. Wt stability, skin to remain intact, labs to approach WNL.
[2017-10-21 09:10] LABS: ANION GAP 5.6 (7.0-16.0); BUN - UREA NITROGEN 17 mg/dL (7-25); CALCIUM SERUM 8.9 mg/dL (8.6-10.3); CARBON DIOXIDE 27.8 mEq/L (21.0-31.0); CHLORIDE 112 mEq/L (98-107); CREATININE - SERUM 1.1 mg/dL (0.7-1.3); GLUCOSE 165 mg/dL (70-105); POTASSIUM SERUM 3.4 mEq/L (3.5-5.1); SODIUM SERUM 142 mEq/L (136-145)
[2017-10-21] MEDS: INSULIN ASPART SLIDING SCALE 100 UNITS/ML UNIT SUBQ SCH ×4 (09:17→21:19)
[2017-10-21] MEDS: Insulin Detemir 100 units/mL 10mL Vial SUBQ SCH (09:18)
[2017-10-21] MEDS: OLANZapine 5 mg Oral Disintegrating Tab PO SCH (09:45)
--- NOTE | 2017-10-21 10:26 | Progress Notes ---
DATE: SUBJECTIVE: Chart reviewed and the patient interviewed. Also discussed the patient's condition with the staff and reviewed records and labs. The patient is still anxious and still have episodes of irritability and anger, but less than before. The patient also is slightly easier to the redirect him. He also is compliant with taking all medications. ASSESSMENT: The patient is less psychotic and he is more cooperative with his treatment. TREATMENT PLAN: We will continue monitoring his behavior and his condition closely. Also, continue adjusting psychotropic medications, but today, it seems that he is calmer and no need for any further adjustment. We will continue to follow up his condition closely. [facility]# [id number]
[2017-10-21] MEDS ORDERED: Potassium Chloride 20 mEq ER Tab PO ONE (14:30)
--- NOTE | 2017-10-21 14:30 | General Progress Note ---
Subjective - Review of Systems Service Date: 10/21/17 Subjective: alert, comfortable Objective - Results Result Diagrams: 10/16/17 09:11 10/21/17 08:45 Recent Labs: Laboratory Last Values WBC 6.7 Th/cmm (4.8-10.8) D 10/16/17 09:11 RBC 4.73 Mil/cmm (3.80-5.80) 10/16/17 09:11 Hgb 13.7 gm/dL (12-16) 10/16/17 09:11 Hct 42.8 % (41.0-60) 10/16/17 09:11 MCV 90.5 fl (80-99) 10/16/17 09:11 MCH 28.9 pg (27.0-31.0) 10/16/17 09:11 MCHC Differential 32.0 pg (28.0-36.0) 10/16/17 09:11 RDW 16.2 % (11.5-20.0) 10/16/17 09:11 Plt Count 162 Th/cmm (150-400) 10/16/17 09:11 MPV 9.7 fl 10/16/17 09:11 Neutrophils % 72.2 % (40.0-80.0) 10/16/17 09:11 Lymphocytes % 19.2 % (20.0-50.0) L 10/16/17 09:11 Monocytes % 5.9 % (2.0-10.0) 10/16/17 09:11 Eosinophils % 1.5 % (0.0-5.0) 10/16/17 09:11 Basophils % 1.2 % (0.0-2.0) 10/16/17 09:11 Eos Smear Source URINE 10/15/17 03:00 Eos Smear Total Cells FEW EOSINOPHILS SEEN (NONE SEEN) 10/15/17 03:00 PT 10.5 SECONDS (9.5-11.5) 10/14/17 06:00 INR 1.01 (0.5-1.4) 10/14/17 06:00 PTT (Actin FS) 25.3 SECONDS (26.0-38.0) L 10/14/17 06:00 Sodium 142 mEq/L (136-145) 10/21/17 08:45 Potassium 3.4 mEq/L (3.5-5.1) L 10/21/17 08:45 Chloride 112 mEq/L (98-107) H 10/21/17 08:45 Carbon Dioxide 27.8 mEq/L (21.0-31.0) 10/21/17 08:45 Anion Gap 5.6 (7.0-16.0) L 10/21/17 08:45 BUN 17 mg/dL (7-25) 10/21/17 08:45 Creatinine 1.1 mg/dL (0.7-1.3) 10/21/17 08:45 Est GFR ( Amer) TNP 10/21/17 08:45 Est GFR (Non-Af Amer) TNP 10/21/17 08:45 BUN/Creatinine Ratio 15.5 10/21/17 08:45 Glucose 165 mg/dL (70-105) H 10/21/17 08:45 POC Glucose 147 MG/DL (70 - 105) H 10/21/17 08:33 Hemoglobin A1c % 10.5 % (4.0-6.0) H 10/14/17 05:26 Uric Acid 5.6 mg/dL (4.4-7.6) 10/20/17 09:10 Calcium 8.9 mg/dL (8.6-10.3) 10/21/17 08:45 Phosphorus 4.1 mg/dL (2.5-5.0) 10/14/17 06:00 Magnesium 2.9 mg/dL (1.9-2.7) H 10/14/17 06:00 Total Bilirubin 0.6 mg/dL (0.3-1.0) 10/16/17 09:11 AST 17 U/L (13-39) 10/16/17 09:11 ALT 13 U/L (7-52) 10/16/17 09:11 Alkaline Phosphatase 81 U/L (34-104) 10/16/17 09:11 Total Protein 6.4 gm/dL (6.0-8.3) 10/16/17 09:11 Albumin 3.0 gm/dL (4.2-5.5) L 10/16/17 09:11 Globulin 3.4 gm/dL 10/16/17 09:11 Albumin/Globulin Ratio 0.9 (1.0-1.8) L 10/16/17 09:11 TSH 0.28 uIU/ml (0.34-5.60) L 10/14/17 06:00 Urine Source CATH 10/15/17 03:00 Urine Color BROWN 10/15/17 03:00 Urine Clarity CLOUDY (CLEAR) 10/15/17 03:00 Urine pH 5.5 (4.6 - 8.0) 10/15/17 03:00 Ur Specific [place] 1.020 (1.005-1.030) 10/15/17 03:00 Urine Protein 100 mg/dL (NEGATIVE) H 10/15/17 03:00 Urine Glucose (UA) >=1000 mg/dL (NEGATIVE) H 10/15/17 03:00 Urine Ketones TRACE mg/dL (NEGATIVE) 10/15/17 03:00 Urine Blood LARGE (NEGATIVE) H 10/15/17 03:00 Urine Nitrate NEGATIVE (NEGATIVE) 10/15/17 03:00 Urine Bilirubin SMALL (NEGATIVE) H 10/15/17 03:00 Urine Ictotest NEGATIVE (NEGATIVE) 10/15/17 03:00 Urine Urobilinogen 0.2 E.U./dL (0.2 - 1.0) 10/15/17 03:00 Ur Leukocyte Esterase TRACE (NEGATIVE) H 10/15/17 03:00 Urine RBC >100 /hpf (0-5) H 10/15/17 03:00 Urine WBC >100 /hpf (0-5) H 10/15/17 03:00 Ur Epithelial Cells OCCASIONAL /lpf (FEW) 10/15/17 03:00 Urine Bacteria MODERATE /hpf (NONE SEEN) H 10/15/17 03:00 Urine Osmolality 749 mOsmol/kg 10/15/17 03:00 Ur Random Sodium 39 mmol/L 10/15/17 03:00 Urine Creatinine 136.0 mg/dl (39.0-259.0) 10/15/17 03:00 - Physical Exam Vitals and I&O: Vital Signs Temp 98.8 F 10/21/17 09:38 Pulse 104 10/21/17 09:44 Resp 20 10/21/17 09:38 BP 152/74 10/21/17 09:44 Pulse Ox 99 10/21/17 09:38 Intake & Output 10/20/17 10/21/17 10/21/17 18:59 06:59 18:59 Intake Total 100 150 100 Output Total 300 Balance 100 -150 100 Weight (lbs) 77.111 kg Intake: Intake, IV Amount 100 100 Levofloxacin 500mg/100mL 100 100 500 mg In 100 ml @ 100 mls/hr IV Q24HR [facility] [place] Rx#: [id number] Oral 150 Output: Urine 300 Other: # Bowel Movements 0 Active Medications: Current Medications Acetaminophen (Tylenol) 650 mg PO Q6HR PRN PRN Reason: mild to moderate pain Stop: 12/11/17 19:27 Last Admin: 10/16/17 03:51 Dose: 650 mg Acetaminophen/Hydrocodone Bitart ([place] 5mg/325mg) 1 tab PO Q6H PRN PRN Reason: Pain (Moderate) Stop: 12/15/17 08:21 Allopurinol (Zyloprim) 100 mg PO DAILY [facility] [place] Stop: 12/12/17 08:59 Last Admin: 10/21/17 09:24 Dose: 100 mg [place] Oil/[place]izen [place] Balsam/Trypsin (Venelex) 1 appl TP DAILY [facility] [place] Stop: 12/12/17 15:59 Last Admin: 10/20/17 08:22 Dose: 1 appl Clonazepam (Klonopin) 1 mg PO BID IMM[facility]EL PRN Reason: Protocol Stop: 12/15/17 08:59 Last Admin: 10/21/17 09:24 Dose: 1 mg Famotidine (Pepcid) 20 mg PO BID [facility] [place] Stop: 12/12/17 08:59 Last Admin: 10/21/17 09:24 Dose: 20 mg Heparin Sodium (Porcine) (Heparin) 5,000 units SUBQ Q12HR [facility] PRN Reason: Protocol Stop: 12/11/17 20:59 Last Admin: 10/21/17 09:46 Dose: Not Given Levofloxacin (Levaquin Pb) 500 mg in 100 mls @ 100 mls/hr IV Q24HR [facility] Stop: 12/14/17 05:59 Last Infusion: 10/21/17 07:19 Dose: Infused Insulin Aspart (Novolog Insulin Sliding Scale) 0 units SUBQ ACHS [facility] PRN Reason: Protocol Stop: 12/11/17 20:59 Last Admin: 10/21/17 13:24 Dose: 4 units Insulin Detemir (Levemir Insulin) 16 units SUBQ DAILY [facility] PRN Reason: Protocol Stop: 12/17/17 08:59 Last Admin: 10/21/17 09:18 Dose: Not Given Lorazepam (Ativan) 0.5 mg PO Q6HR PRN; Protocol PRN Reason: agitation Stop: 12/11/17 19:27 Last Admin: 10/21/17 09:24 Dose: 0.5 mg Magnesium Hydroxide (Milk Of Magnesia) 30 ml PO HS PRN PRN Reason: Constipation Stop: 12/11/17 19:27 Metoprolol Succinate (Toprol Xl) 25 mg PO BID [facility] Stop: 12/12/17 16:59 Last Admin: 10/21/17 09:44 Dose: 25 mg Miscellaneous (Clinical Monitoring) 1 ea MC PRN PRN PRN Reason: RENAL Stop: 12/12/17 10:33 Olanzapine (Zyprexa Zydis) 12.5 mg PO BID [facility]EL PRN Reason: Protocol Stop: 12/17/17 12:28 Last Admin: 10/21/17 09:45 Dose: 12.5 mg Zolpidem Tartrate (Ambien) 5 mg PO HS PRN PRN Reason: insomnia Stop: 12/11/17 19:27 Last Admin: 10/18/17 20:36 Dose: 5 mg General: Alert, Oriented x3, No acute distress HEENT: Atraumatic, PERRLA Neck: Supple Cardiovascular: Regular rate, Normal S1, Normal S2 Lungs: Clear to auscultation Abdomen: Bowel sounds, Soft Extremities: no Clubbing, no Cyanosis, no Edema Neurological: Sensation intact Skin: no Rash Psych/Mental Status: Mood NL - Procedures Procedures: Procedures Procedure Code Date JEWEL MUSC/FASCIA 20 SQ CM/< 85025 10/12/17 EXCISION OF RIGHT HIP MUSCLE, OPEN APPROACH [id number] 10/12/17 Assessment/Plan - Assessment Assessment: EKN on CKD Stage 4 decub ulcer S/P debridement Severe dehydration Ess HTN Type 2 DM Psychosis - Plan Plan: Lab - Result Diagrams 10/14/17 06:00 10/14/17 06:00 Current Medications Acetaminophen (Tylenol) 650 mg PO Q6HR PRN PRN Reason: mild to moderate pain Stop: 12/11/17 19:27 Allopurinol (Zyloprim) 100 mg PO DAILY [facility] Stop: 12/12/17 08:59 Last Admin: 10/14/17 10:00 Dose: Not Given [place] Oil/[place]izen [place] Balsam/Trypsin (Venelex) 1 appl TP DAILY [facility] [place] Stop: 12/12/17 15:59 Last Admin: 10/14/17 10:00 Dose: 1 appl Famotidine (Pepcid) 20 mg PO BID [facility] [place] Stop: 12/12/17 08:59 Last Admin: 10/14/17 18:22 Dose: 20 mg Heparin Sodium (Porcine) (Heparin) 5,000 units SUBQ Q12HR [facility] PRN Reason: Protocol Stop: 12/11/17 20:59 Last Admin: 10/14/17 07:50 Dose: Not Given Ceftriaxone Sodium 1 gm/ (Sodium Chloride) 50 mls @ 100 mls/hr IV Q24HR [facility] [place] Stop: 12/11/17 16:44 Last Admin: 10/14/17 17:45 Dose: 100 mls/hr Insulin Aspart (Novolog Insulin Sliding Scale) 0 units SUBQ ACHS IMM[facility] PRN Reason: Protocol Stop: 12/11/17 20:59 Last Admin: 10/14/17 18:23 Dose: 6 units Lorazepam (Ativan) 0.5 mg PO Q6HR PRN; Protocol PRN Reason: agitation Stop: 12/11/17 19:27 Magnesium Hydroxide (Milk Of Magnesia) 30 ml PO HS PRN PRN Reason: Constipation Stop: 12/11/17 19:27 Metoprolol Succinate (Toprol Xl) 25 mg PO BID [facility] Stop: 12/12/17 16:59 Last Admin: 10/14/17 18:23 Dose: 25 mg Miscellaneous (Clinical Monitoring) 1 ea MC PRN PRN PRN Reason: RENAL Stop: 12/12/17 10:33 Olanzapine (Zyprexa Zydis) 5 mg PO BID I[facility] PRN Reason: Protocol Stop: 12/13/17 16:59 Zolpidem Tartrate (Ambien) 5 mg PO HS PRN PRN Reason: insomnia Stop: 12/11/17 19:2 Lab - Result Diagrams 10/16/17 09:11 10/21/17 08:45 Na down to 142 Kidney fnc gradually improving agree w/ Allopurinol f/u electrolytes, agree w/ Levaquin continue hydration BS better control increase Detemir replace K Nutritional Asmnt/Malnutr-PDOC - Dietary Evaluation Malnutrition Findings (Please click <Entered> for more info): Nutritional Asmnt/Malnutrition Start: 10/14/17 17: 10 Text: Status: Complete Freq: Document 10/14/17 17:13 GREY (Rec: 10/14/17 17:25 GREY [email or web address]) Nutritional Asmnt/Malnutrition Patient General Information Nutritional Screening High Risk Consult Diagnosis pressure ulcer, hyperglycemia, dehydration Pertinent Medical Hx/Surgical Hx DM, dementia, depression, psychosis, schizophrenia, chronic renal insuff Subjective Information Consult received for unstageble pressure ulcer on , high BG on 10/12. Per records, PO intake 50-75%. Pt was on NPO today for surgery- excisional debridement, application of wound VAC Current Diet Order/ Nutrition Support pureed, CCHO 60gm Pertinent Medications novolog Pertinent Labs 10/14 Na 152, K 4.6, BUN 56, Cr 1.8, Glucose 262, POC 236-246 , Mg 2.9 Nutritional Hx/Data Height 1.8 m Height (Calculated Centimeters) 180.3 Current Weight (lbs) 70.76 kg Weight (Calculated Kilograms) 70.8 Weight (Calculated Grams) 12246.4 [place] Body Weight 172 % [place] Body Weight 91 Body Mass Index (BMI) 21.7 Weight Status Approriate GI Symptoms GI Symptoms None Last BM 10/13 Difficult in: None Skin Integrity/Comment: scar to right upper back, decubitus ulcer to buttocks Current %PO Fair (50-74%) Estimated Nutritional Goals BEE in Kcals: Using Current wt Calories/Kcals/Kg 27-32 Kcals Calculated 8279-7079 Protein: Using Current wt Protein g/k-1.2 Protein Calculated 71-85 Fluid: ml 1917-2130ml (1ml/kcal) Nutritional Problem 2. Problem Problem altered nutrition related lab values Etiology hx of DM Signs/Symptoms: Glucose 262, POC 236-246 1. Problem Problem increased nutrition needs ( calorie and protein) Etiology increased metabolic demand for wound healing Signs/Symptoms: decubitus ulcer and surgery Intervention/Recommendation Comments 1. Continue with current diet as ordered. If PO intake low, will consider nutrition supplements 2. MD to consider vit C and zinc for wound healing 3. Monitor PO intake, wt, labs and skin integrity 4. F/U as moderate risk in 3-5 days, /2-3/4, PO check 3/2 Expected Outcomes/Goals Expected Outcomes/Goals 1. PO intake to meet at least 75% of nutritional needs. 2. Wt stability, skin to remain intact, labs to approach WNL.
[2017-10-21] MEDS: Venelex 60gm Tube TP SCH (19:24)
[2017-10-22] MEDS: Levofloxacin 500mg/100mL 500 MG/100 ML BAG IV SCH (05:35)
[2017-10-22 06:11] LABS: ANION GAP 10.8 (7.0-16.0); BUN - UREA NITROGEN 16 mg/dL (7-25); CALCIUM SERUM 8.8 mg/dL (8.6-10.3); CARBON DIOXIDE 24.1 mEq/L (21.0-31.0); CHLORIDE 112 mEq/L (98-107); GLUCOSE 194 mg/dL (70-105); POTASSIUM SERUM 3.9 mEq/L (3.5-5.1); SODIUM SERUM 143 mEq/L (136-145)
[2017-10-22] MEDS: OLANZapine 5 mg Oral Disintegrating Tab PO SCH ×2 (08:37→16:52)
[2017-10-22] MEDS: INSULIN ASPART SLIDING SCALE 100 UNITS/ML UNIT SUBQ SCH ×4 (08:39→21:26)
--- NOTE | 2017-10-22 08:39 | General Progress Note ---
Subjective - Review of Systems Service Date: 10/22/17 Subjective: Patient still aggressive to staff. Patient blood sugar much better controlled on levemir 16u Daily. Objective - Results Result Diagrams: 10/16/17 09:11 10/22/17 05:05 Recent Labs: Laboratory Last Values WBC 6.7 Th/cmm (4.8-10.8) D 10/16/17 09:11 RBC 4.73 Mil/cmm (3.80-5.80) 10/16/17 09:11 Hgb 13.7 gm/dL (12-16) 10/16/17 09:11 Hct 42.8 % (41.0-60) 10/16/17 09:11 MCV 90.5 fl (80-99) 10/16/17 09:11 MCH 28.9 pg (27.0-31.0) 10/16/17 09:11 MCHC Differential 32.0 pg (28.0-36.0) 10/16/17 09:11 RDW 16.2 % (11.5-20.0) 10/16/17 09:11 Plt Count 162 Th/cmm (150-400) 10/16/17 09:11 MPV 9.7 fl 10/16/17 09:11 Neutrophils % 72.2 % (40.0-80.0) 10/16/17 09:11 Lymphocytes % 19.2 % (20.0-50.0) L 10/16/17 09:11 Monocytes % 5.9 % (2.0-10.0) 10/16/17 09:11 Eosinophils % 1.5 % (0.0-5.0) 10/16/17 09:11 Basophils % 1.2 % (0.0-2.0) 10/16/17 09:11 Eos Smear Source URINE 10/15/17 03:00 Eos Smear Total Cells FEW EOSINOPHILS SEEN (NONE SEEN) 10/15/17 03:00 PT 10.5 SECONDS (9.5-11.5) 10/14/17 06:00 INR 1.01 (0.5-1.4) 10/14/17 06:00 PTT (Actin FS) 25.3 SECONDS (26.0-38.0) L 10/14/17 06:00 Sodium 143 mEq/L (136-145) 10/22/17 05:05 Potassium 3.9 mEq/L (3.5-5.1) 10/22/17 05:05 Chloride 112 mEq/L (98-107) H 10/22/17 05:05 Carbon Dioxide 24.1 mEq/L (21.0-31.0) 10/22/17 05:05 Anion Gap 10.8 (7.0-16.0) 10/22/17 05:05 BUN 16 mg/dL (7-25) 10/22/17 05:05 Creatinine 1.0 mg/dL (0.7-1.3) 10/22/17 05:05 Est GFR ( Amer) TNP 10/22/17 05:05 Est GFR (Non-Af Amer) TNP 10/22/17 05:05 BUN/Creatinine Ratio 16.0 10/22/17 05:05 Glucose 194 mg/dL (70-105) H 10/22/17 05:05 POC Glucose 168 MG/DL (70 - 105) H 10/22/17 05:39 Hemoglobin A1c % 10.5 % (4.0-6.0) H 10/14/17 05:26 Uric Acid 5.6 mg/dL (4.4-7.6) 10/20/17 09:10 Calcium 8.8 mg/dL (8.6-10.3) 10/22/17 05:05 Phosphorus 4.1 mg/dL (2.5-5.0) 10/14/17 06:00 Magnesium 2.0 mg/dL (1.9-2.7) 10/22/17 05:05 Total Bilirubin 0.6 mg/dL (0.3-1.0) 10/16/17 09:11 AST 17 U/L (13-39) 10/16/17 09:11 ALT 13 U/L (7-52) 10/16/17 09:11 Alkaline Phosphatase 81 U/L (34-104) 10/16/17 09:11 Total Protein 6.4 gm/dL (6.0-8.3) 10/16/17 09:11 Albumin 3.0 gm/dL (4.2-5.5) L 10/16/17 09:11 Globulin 3.4 gm/dL 10/16/17 09:11 Albumin/Globulin Ratio 0.9 (1.0-1.8) L 10/16/17 09:11 TSH 0.28 uIU/ml (0.34-5.60) L 10/14/17 06:00 Urine Source CATH 10/15/17 03:00 Urine Color BROWN 10/15/17 03:00 Urine Clarity CLOUDY (CLEAR) 10/15/17 03:00 Urine pH 5.5 (4.6 - 8.0) 10/15/17 03:00 Ur Specific [place] 1.020 (1.005-1.030) 10/15/17 03:00 Urine Protein 100 mg/dL (NEGATIVE) H 10/15/17 03:00 Urine Glucose (UA) >=1000 mg/dL (NEGATIVE) H 10/15/17 03:00 Urine Ketones TRACE mg/dL (NEGATIVE) 10/15/17 03:00 Urine Blood LARGE (NEGATIVE) H 10/15/17 03:00 Urine Nitrate NEGATIVE (NEGATIVE) 10/15/17 03:00 Urine Bilirubin SMALL (NEGATIVE) H 10/15/17 03:00 Urine Ictotest NEGATIVE (NEGATIVE) 10/15/17 03:00 Urine Urobilinogen 0.2 E.U./dL (0.2 - 1.0) 10/15/17 03:00 Ur Leukocyte Esterase TRACE (NEGATIVE) H 10/15/17 03:00 Urine RBC >100 /hpf (0-5) H 10/15/17 03:00 Urine WBC >100 /hpf (0-5) H 10/15/17 03:00 Ur Epithelial Cells OCCASIONAL /lpf (FEW) 10/15/17 03:00 Urine Bacteria MODERATE /hpf (NONE SEEN) H 10/15/17 03:00 Urine Osmolality 749 mOsmol/kg 10/15/17 03:00 Ur Random Sodium 39 mmol/L 10/15/17 03:00 Urine Creatinine 136.0 mg/dl (39.0-259.0) 10/15/17 03:00 - Physical Exam Vitals and I&O: Vital Signs Temp 97.1 F 10/22/17 04:00 Pulse 108 10/22/17 08:38 Resp 18 10/22/17 00:00 BP 143/82 10/22/17 08:38 Pulse Ox 97 10/22/17 00:00 Intake & Output 10/21/17 10/22/17 10/22/17 18:59 06:59 18:59 Intake Total 100 800 Output Total 250 Balance 100 550 Weight (lbs) 77.111 kg Intake: Intake, IV Amount 100 Levofloxacin 500mg/100mL 100 500 mg In 100 ml @ 100 mls/hr IV Q24HR [facility] Rx#: [id number] Oral 800 Output: Urine 250 Other: # Voids 300 # Bowel Movements 0 Active Medications: Current Medications Acetaminophen (Tylenol) 650 mg PO Q6HR PRN PRN Reason: mild to moderate pain Stop: 12/11/17 19:27 Last Admin: 10/16/17 03:51 Dose: 650 mg Acetaminophen/Hydrocodone Bitart ([place] 5mg/325mg) 1 tab PO Q6H PRN PRN Reason: Pain (Moderate) Stop: 12/15/17 08:21 Allopurinol (Zyloprim) 100 mg PO DAILY [facility] Stop: 12/12/17 08:59 Last Admin: 10/22/17 08:37 Dose: 100 mg [place] Oil/[place] Balsam/Trypsin (Venelex) 1 appl TP DAILY [facility] Stop: 12/12/17 15:59 Last Admin: 10/21/17 19:24 Dose: Not Given Clonazepam (Klonopin) 1 mg PO BID [facility] PRN Reason: Protocol Stop: 12/15/17 08:59 Last Admin: 10/22/17 08:38 Dose: 1 mg Famotidine (Pepcid) 20 mg PO BID [facility] Stop: 12/12/17 08:59 Last Admin: 10/22/17 08:37 Dose: 20 mg Heparin Sodium (Porcine) (Heparin) 5,000 units SUBQ Q12HR [facility] PRN Reason: Protocol Stop: 12/11/17 20:59 Last Admin: 10/21/17 21:18 Dose: 5,000 units Levofloxacin (Levaquin Pb) 500 mg in 100 mls @ 100 mls/hr IV Q24HR [facility] Stop: 12/14/17 05:59 Last Admin: 10/22/17 05:35 Dose: 100 mls/hr Insulin Aspart (Novolog Insulin Sliding Scale) 0 units SUBQ ACHS [facility] PRN Reason: Protocol Stop: 12/11/17 20:59 Last Admin: 10/21/17 21:19 Dose: 6 units Insulin Detemir (Levemir Insulin) 16 units SUBQ DAILY [facility] PRN Reason: Protocol Stop: 12/17/17 08:59 Last Admin: 10/21/17 09:18 Dose: Not Given Lorazepam (Ativan) 0.5 mg PO Q6HR PRN; Protocol PRN Reason: agitation Stop: 12/11/17 19:27 Last Admin: 10/21/17 09:24 Dose: 0.5 mg Magnesium Hydroxide (Milk Of Magnesia) 30 ml PO HS PRN PRN Reason: Constipation Stop: 12/11/17 19:27 Metoprolol Succinate (Toprol Xl) 25 mg PO BID [facility] Stop: 12/12/17 16:59 Last Admin: 10/22/17 08:38 Dose: 25 mg Miscellaneous (Clinical Monitoring) 1 ea MC PRN PRN PRN Reason: RENAL Stop: 12/12/17 10:33 Olanzapine (Zyprexa Zydis) 12.5 mg PO BID [facility] PRN Reason: Protocol Stop: 12/17/17 12:28 Last Admin: 10/22/17 08:37 Dose: 12.5 mg Zolpidem Tartrate (Ambien) 5 mg PO HS PRN PRN Reason: insomnia Stop: 12/11/17 19:27 Last Admin: 10/18/17 20:36 Dose: 5 mg General: Alert, Oriented x3, No acute distress HEENT: Atraumatic, PERRLA Neck: Supple Cardiovascular: Regular rate, Normal S1, Normal S2 Lungs: Clear to auscultation Abdomen: Bowel sounds, Soft Extremities: no Clubbing, no Cyanosis, no Edema Neurological: Sensation intact Skin: no Rash Psych/Mental Status: Mood NL - Procedures Procedures: Procedures Procedure Code Date JEWEL MUSC/FASCIA 20 SQ CM/< 61902 10/12/17 EXCISION OF RIGHT HIP MUSCLE, OPEN APPROACH [id number] 10/12/17 Assessment/Plan - Assessment Assessment: hypernatremia resolved prerenal azotemia improved. hyperglycemia ... stable depression/anxiety gout ... on allopurinol. check uric acid level dementia schizophrenia S/P wound debridement of sacral decubitus ... continue wound care treatment. UTI KEN on CKD ... resolved. hyperkalemia resolved. discharge planning. - Plan Plan: will order cmp this AM renal consult -- Dr. Sharp sacral decubitus ... will order Gen Surgical consult -- Dr. Greene for possible wound debridement Gout ... continue allopurinol 100mg PO daily continue wound vac. continue hydrocodone PO for pain control. discharge planning Nutritional Asmnt/Malnutr-PDOC - Dietary Evaluation Malnutrition Findings (Please click <Entered> for more info): Nutritional Asmnt/Malnutrition Start: 10/14/17 17: 10 Text: Status: Complete Freq: Document 10/14/17 17:13 [facility] (Rec: 10/14/17 17:25 [facility]) Nutritional Asmnt/Malnutrition Patient General Information Nutritional Screening High Risk Consult Diagnosis pressure ulcer, hyperglycemia, dehydration Pertinent Medical Hx/Surgical Hx DM, dementia, depression, psychosis, schizophrenia, chronic renal insuff Subjective Information Consult received for unstageble pressure ulcer on , high BG on 10/12. Per records, PO intake 50-75%. Pt was on NPO today for surgery- excisional debridement, application of wound VAC Current Diet Order/ Nutrition Support pureed, CCHO 60gm Pertinent Medications novolog Pertinent Labs 10/14 Na 152, K 4.6, BUN 56, Cr 1.8, Glucose 262, POC 236-246 , Mg 2.9 Nutritional Hx/Data Height 1.8 m Height (Calculated Centimeters) 180.3 Current Weight (lbs) 70.76 kg Weight (Calculated Kilograms) 70.8 Weight (Calculated Grams) 21754.4 [place] Body Weight 172 % [place] Body Weight 91 Body Mass Index (BMI) 21.7 Weight Status Approriate GI Symptoms GI Symptoms None Last BM 10/13 Difficult in: None Skin Integrity/Comment: scar to right upper back, decubitus ulcer to buttocks Current %PO Fair (50-74%) Estimated Nutritional Goals BEE in Kcals: Using Current wt Calories/Kcals/Kg 27-32 Kcals Calculated 5045-9227 Protein: Using Current wt Protein g/k-1.2 Protein Calculated 71-85 Fluid: ml 1916-2129ml (1ml/kcal) Nutritional Problem 2. Problem Problem altered nutrition related lab values Etiology hx of DM Signs/Symptoms: Glucose 262, POC 236-246 1. Problem Problem increased nutrition needs ( calorie and protein) Etiology increased metabolic demand for wound healing Signs/Symptoms: decubitus ulcer and surgery Intervention/Recommendation Comments 1. Continue with current diet as ordered. If PO intake low, will consider nutrition supplements 2. MD to consider vit C and zinc for wound healing 3. Monitor PO intake, wt, labs and skin integrity 4. F/U as moderate risk in 3-5 days, 2-10/19, PO check 3/2 Expected Outcomes/Goals Expected Outcomes/Goals 1. PO intake to meet at least 75% of nutritional needs. 2. Wt stability, skin to remain intact, labs to approach WNL.
[2017-10-22] MEDS: Insulin Detemir 100 units/mL 10mL Vial SUBQ SCH (08:40)
[2017-10-22] MEDS: Venelex 60gm Tube TP SCH (08:56)
--- NOTE | 2017-10-22 11:38 | Infectious Disease Prog Note ---
Infectious Disease Subjective - Review of Systems Service Date: 10/22/17 Subjective: no new change. Infectious Disease Objective - Results Result Diagrams: 10/16/17 09:11 10/22/17 05:05 Recent Labs: Laboratory Last Values WBC 6.7 Th/cmm (4.8-10.8) D 10/16/17 09:11 RBC 4.73 Mil/cmm (3.80-5.80) 10/16/17 09:11 Hgb 13.7 gm/dL (12-16) 10/16/17 09:11 Hct 42.8 % (41.0-60) 10/16/17 09:11 MCV 90.5 fl (80-99) 10/16/17 09:11 MCH 28.9 pg (27.0-31.0) 10/16/17 09:11 MCHC Differential 32.0 pg (28.0-36.0) 10/16/17 09:11 RDW 16.2 % (11.5-20.0) 10/16/17 09:11 Plt Count 162 Th/cmm (150-400) 10/16/17 09:11 MPV 9.7 fl 10/16/17 09:11 Neutrophils % 72.2 % (40.0-80.0) 10/16/17 09:11 Lymphocytes % 19.2 % (20.0-50.0) L 10/16/17 09:11 Monocytes % 5.9 % (2.0-10.0) 10/16/17 09:11 Eosinophils % 1.5 % (0.0-5.0) 10/16/17 09:11 Basophils % 1.2 % (0.0-2.0) 10/16/17 09:11 Eos Smear Source URINE 10/15/17 03:00 Eos Smear Total Cells FEW EOSINOPHILS SEEN (NONE SEEN) 10/15/17 03:00 PT 10.5 SECONDS (9.5-11.5) 10/14/17 06:00 INR 1.01 (0.5-1.4) 10/14/17 06:00 PTT (Actin FS) 25.3 SECONDS (26.0-38.0) L 10/14/17 06:00 Sodium 143 mEq/L (136-145) 10/22/17 05:05 Potassium 3.9 mEq/L (3.5-5.1) 10/22/17 05:05 Chloride 112 mEq/L (98-107) H 10/22/17 05:05 Carbon Dioxide 24.1 mEq/L (21.0-31.0) 10/22/17 05:05 Anion Gap 10.8 (7.0-16.0) 10/22/17 05:05 BUN 16 mg/dL (7-25) 10/22/17 05:05 Creatinine 1.0 mg/dL (0.7-1.3) 10/22/17 05:05 Est GFR ( Amer) TNP 10/22/17 05:05 Est GFR (Non-Af Amer) TNP 10/22/17 05:05 BUN/Creatinine Ratio 16.0 10/22/17 05:05 Glucose 194 mg/dL (70-105) H 10/22/17 05:05 POC Glucose 168 MG/DL (70 - 105) H 10/22/17 05:39 Hemoglobin A1c % 10.5 % (4.0-6.0) H 10/14/17 05:26 Uric Acid 5.6 mg/dL (4.4-7.6) 10/20/17 09:10 Calcium 8.8 mg/dL (8.6-10.3) 10/22/17 05:05 Phosphorus 4.1 mg/dL (2.5-5.0) 10/14/17 06:00 Magnesium 2.0 mg/dL (1.9-2.7) 10/22/17 05:05 Total Bilirubin 0.6 mg/dL (0.3-1.0) 10/16/17 09:11 AST 17 U/L (13-39) 10/16/17 09:11 ALT 13 U/L (7-52) 10/16/17 09:11 Alkaline Phosphatase 81 U/L (34-104) 10/16/17 09:11 Total Protein 6.4 gm/dL (6.0-8.3) 10/16/17 09:11 Albumin 3.0 gm/dL (4.2-5.5) L 10/16/17 09:11 Globulin 3.4 gm/dL 10/16/17 09:11 Albumin/Globulin Ratio 0.9 (1.0-1.8) L 10/16/17 09:11 TSH 0.28 uIU/ml (0.34-5.60) L 10/14/17 06:00 Urine Source CATH 10/15/17 03:00 Urine Color BROWN 10/15/17 03:00 Urine Clarity CLOUDY (CLEAR) 10/15/17 03:00 Urine pH 5.5 (4.6 - 8.0) 10/15/17 03:00 Ur Specific [place] 1.020 (1.005-1.030) 10/15/17 03:00 Urine Protein 100 mg/dL (NEGATIVE) H 10/15/17 03:00 Urine Glucose (UA) >=1000 mg/dL (NEGATIVE) H 10/15/17 03:00 Urine Ketones TRACE mg/dL (NEGATIVE) 10/15/17 03:00 Urine Blood LARGE (NEGATIVE) H 10/15/17 03:00 Urine Nitrate NEGATIVE (NEGATIVE) 10/15/17 03:00 Urine Bilirubin SMALL (NEGATIVE) H 10/15/17 03:00 Urine Ictotest NEGATIVE (NEGATIVE) 10/15/17 03:00 Urine Urobilinogen 0.2 E.U./dL (0.2 - 1.0) 10/15/17 03:00 Ur Leukocyte Esterase TRACE (NEGATIVE) H 10/15/17 03:00 Urine RBC >100 /hpf (0-5) H 10/15/17 03:00 Urine WBC >100 /hpf (0-5) H 10/15/17 03:00 Ur Epithelial Cells OCCASIONAL /lpf (FEW) 10/15/17 03:00 Urine Bacteria MODERATE /hpf (NONE SEEN) H 10/15/17 03:00 Urine Osmolality 749 mOsmol/kg 10/15/17 03:00 Ur Random Sodium 39 mmol/L 10/15/17 03:00 Urine Creatinine 136.0 mg/dl (39.0-259.0) 10/15/17 03:00 - Physical Exam Vitals and I&O: Vital Signs Temp 98.1 F 10/22/17 08:00 Pulse 108 10/22/17 08:38 Resp 20 10/22/17 08:00 BP 143/82 10/22/17 08:38 Pulse Ox 98 10/22/17 08:00 Intake & Output 10/21/17 10/22/17 10/22/17 18:59 06:59 18:59 Intake Total 100 800 Output Total 250 Balance 100 550 Weight (lbs) 77.111 kg Intake: Intake, IV Amount 100 Levofloxacin 500mg/100mL 100 500 mg In 100 ml @ 100 mls/hr IV Q24HR [facility] Rx#: [id number] Oral 800 Output: Urine 250 Other: # Voids 300 # Bowel Movements 0 Active Medications: Current Medications Acetaminophen (Tylenol) 650 mg PO Q6HR PRN PRN Reason: mild to moderate pain Stop: 12/11/17 19:27 Last Admin: 10/16/17 03:51 Dose: 650 mg Acetaminophen/Hydrocodone Bitart ([place] 5mg/325mg) 1 tab PO Q6H PRN PRN Reason: Pain (Moderate) Stop: 12/15/17 08:21 Allopurinol (Zyloprim) 100 mg PO DAILY [facility] Stop: 12/12/17 08:59 Last Admin: 10/22/17 08:37 Dose: 100 mg [place] Oil/[place] Balsam/Trypsin (Venelex) 1 appl TP DAILY [facility] Stop: 12/12/17 15:59 Last Admin: 10/22/17 08:56 Dose: 1 appl Clonazepam (Klonopin) 1 mg PO BID I[facility] PRN Reason: Protocol Stop: 12/15/17 08:59 Last Admin: 10/22/17 08:38 Dose: 1 mg Famotidine (Pepcid) 20 mg PO BID [facility] Stop: 12/12/17 08:59 Last Admin: 10/22/17 08:37 Dose: 20 mg Heparin Sodium (Porcine) (Heparin) 5,000 units SUBQ Q12HR [facility] PRN Reason: Protocol Stop: 12/11/17 20:59 Last Admin: 10/22/17 08:39 Dose: 5,000 units Levofloxacin (Levaquin Pb) 500 mg in 100 mls @ 100 mls/hr IV Q24HR [facility] Stop: 12/14/17 05:59 Last Admin: 10/22/17 05:35 Dose: 100 mls/hr Insulin Aspart (Novolog Insulin Sliding Scale) 0 units SUBQ ACHS [facility] PRN Reason: Protocol Stop: 12/11/17 20:59 Last Admin: 10/22/17 08:39 Dose: 2 units Insulin Detemir (Levemir Insulin) 16 units SUBQ DAILY [facility] PRN Reason: Protocol Stop: 12/17/17 08:59 Last Admin: 10/22/17 08:40 Dose: 16 units Lorazepam (Ativan) 0.5 mg PO Q6HR PRN; Protocol PRN Reason: agitation Stop: 12/11/17 19:27 Last Admin: 10/21/17 09:24 Dose: 0.5 mg Magnesium Hydroxide (Milk Of Magnesia) 30 ml PO HS PRN PRN Reason: Constipation Stop: 12/11/17 19:27 Metoprolol Succinate (Toprol Xl) 25 mg PO BID [facility] Stop: 12/12/17 16:59 Last Admin: 10/22/17 08:38 Dose: 25 mg Miscellaneous (Clinical Monitoring) 1 ea MC PRN PRN PRN Reason: RENAL Stop: 12/12/17 10:33 Olanzapine (Zyprexa Zydis) 12.5 mg PO BID [facility] PRN Reason: Protocol Stop: 12/17/17 12:28 Last Admin: 10/22/17 08:37 Dose: 12.5 mg Zolpidem Tartrate (Ambien) 5 mg PO HS PRN PRN Reason: insomnia Stop: 12/11/17 19:27 Last Admin: 10/18/17 20:36 Dose: 5 mg General: no acute distress, well developed, well nourished HEENT: atraumatic, normocephalic, PERRLA, EOMI, moist mucous membrane Neck: supple, no thyromegaly, no lymphadenopathy, no rigid Cardiovascular: S1S2, regular Lungs: clear to auscultation bilaterally, clear to percussion Abdomen: soft, no tender, no distended, no mass Extremities: no cyanosis, no clubbing, no edema Neurological: awake, alert, oriented Skin: other (sacral wound stage 4 wound vac.) - Procedures Procedures: Procedures Procedure Code Date JEWEL MUSC/FASCIA 20 SQ CM/< 27635 10/12/17 EXCISION OF RIGHT HIP MUSCLE, OPEN APPROACH [id number] 10/12/17 Infectious Disease Assmt/Plan - Assessment Assessment: 1. Sacral stage III decubitus ulcer, infected. 2. Status post I&D. 3. Diabetes mellitus type . 4. Dementia. 5. Depression. 6. psychosis. 7. Schizophrenia. 8. Hematuria. - Plan Plan: CPM. wound care. Nutritional Asmnt/Malnutr-PDOC - Dietary Evaluation Malnutrition Findings (Please click <Entered> for more info): Nutritional Asmnt/Malnutrition Start: 10/14/17 17: 10 Text: Status: Complete Freq: Document 10/14/17 17:13 [facility] (Rec: 10/14/17 17:25 GREY [email or web address]) Nutritional Asmnt/Malnutrition Patient General Information Nutritional Screening High Risk Consult Diagnosis pressure ulcer, hyperglycemia, dehydration Pertinent Medical Hx/Surgical Hx DM, dementia, depression, psychosis, schizophrenia, chronic renal insuff Subjective Information Consult received for unstageble pressure ulcer on , high BG on 10/12. Per records, PO intake 50-75%. Pt was on NPO today for surgery- excisional debridement, application of wound VAC Current Diet Order/ Nutrition Support pureed, CCHO 60gm Pertinent Medications novolog Pertinent Labs 10/14 Na 152, K 4.6, BUN 56, Cr 1.8, Glucose 262, POC 236-246 , Mg 2.9 Nutritional Hx/Data Height 1.8 m Height (Calculated Centimeters) 180.3 Current Weight (lbs) 70.76 kg Weight (Calculated Kilograms) 70.8 Weight (Calculated Grams) 84795.4 [place] Body Weight 172 % [place] Body Weight 91 Body Mass Index (BMI) 21.7 Weight Status Approriate GI Symptoms GI Symptoms None Last BM 10/13 Difficult in: None Skin Integrity/Comment: scar to right upper back, decubitus ulcer to buttocks Current %PO Fair (50-74%) Estimated Nutritional Goals BEE in Kcals: Using Current wt Calories/Kcals/Kg 27-32 Kcals Calculated 7587-7760 Protein: Using Current wt Protein g/k-1.2 Protein Calculated 71-85 Fluid: ml 1917-2130ml (1ml/kcal) Nutritional Problem 2. Problem Problem altered nutrition related lab values Etiology hx of DM Signs/Symptoms: Glucose 262, POC 236-246 1. Problem Problem increased nutrition needs ( calorie and protein) Etiology increased metabolic demand for wound healing Signs/Symptoms: decubitus ulcer and surgery Intervention/Recommendation Comments 1. Continue with current diet as ordered. If PO intake low, will consider nutrition supplements 2. MD to consider vit C and zinc for wound healing 3. Monitor PO intake, wt, labs and skin integrity 4. F/U as moderate risk in 3-5 days, 3/2-3/4, PO check 3/2 Expected Outcomes/Goals Expected Outcomes/Goals 1. PO intake to meet at least 75% of nutritional needs. 2. Wt stability, skin to remain intact, labs to approach WNL.
--- NOTE | 2017-10-22 15:30 | General Progress Note ---
Subjective - Review of Systems Service Date: 10/22/17 Subjective: alert, comfortable, periods of confusion Objective - Results Result Diagrams: 10/16/17 09:11 10/22/17 05:05 Recent Labs: Laboratory Last Values WBC 6.7 Th/cmm (4.8-10.8) D 10/16/17 09:11 RBC 4.73 Mil/cmm (3.80-5.80) 10/16/17 09:11 Hgb 13.7 gm/dL (12-16) 10/16/17 09:11 Hct 42.8 % (41.0-60) 10/16/17 09:11 MCV 90.5 fl (80-99) 10/16/17 09:11 MCH 28.9 pg (27.0-31.0) 10/16/17 09:11 MCHC Differential 32.0 pg (28.0-36.0) 10/16/17 09:11 RDW 16.2 % (11.5-20.0) 10/16/17 09:11 Plt Count 162 Th/cmm (150-400) 10/16/17 09:11 MPV 9.7 fl 10/16/17 09:11 Neutrophils % 72.2 % (40.0-80.0) 10/16/17 09:11 Lymphocytes % 19.2 % (20.0-50.0) L 10/16/17 09:11 Monocytes % 5.9 % (2.0-10.0) 10/16/17 09:11 Eosinophils % 1.5 % (0.0-5.0) 10/16/17 09:11 Basophils % 1.2 % (0.0-2.0) 10/16/17 09:11 Eos Smear Source URINE 10/15/17 03:00 Eos Smear Total Cells FEW EOSINOPHILS SEEN (NONE SEEN) 10/15/17 03:00 PT 10.5 SECONDS (9.5-11.5) 10/14/17 06:00 INR 1.01 (0.5-1.4) 10/14/17 06:00 PTT (Actin FS) 25.3 SECONDS (26.0-38.0) L 10/14/17 06:00 Sodium 143 mEq/L (136-145) 10/22/17 05:05 Potassium 3.9 mEq/L (3.5-5.1) 10/22/17 05:05 Chloride 112 mEq/L (98-107) H 10/22/17 05:05 Carbon Dioxide 24.1 mEq/L (21.0-31.0) 10/22/17 05:05 Anion Gap 10.8 (7.0-16.0) 10/22/17 05:05 BUN 16 mg/dL (7-25) 10/22/17 05:05 Creatinine 1.0 mg/dL (0.7-1.3) 10/22/17 05:05 Est GFR ( Amer) TNP 10/22/17 05:05 Est GFR (Non-Af Amer) TNP 10/22/17 05:05 BUN/Creatinine Ratio 16.0 10/22/17 05:05 Glucose 194 mg/dL (70-105) H 10/22/17 05:05 POC Glucose 182 MG/DL (70 - 105) H 10/22/17 11:47 Hemoglobin A1c % 10.5 % (4.0-6.0) H 10/14/17 05:26 Uric Acid 5.6 mg/dL (4.4-7.6) 10/20/17 09:10 Calcium 8.8 mg/dL (8.6-10.3) 10/22/17 05:05 Phosphorus 4.1 mg/dL (2.5-5.0) 10/14/17 06:00 Magnesium 2.0 mg/dL (1.9-2.7) 10/22/17 05:05 Total Bilirubin 0.6 mg/dL (0.3-1.0) 10/16/17 09:11 AST 17 U/L (13-39) 10/16/17 09:11 ALT 13 U/L (7-52) 10/16/17 09:11 Alkaline Phosphatase 81 U/L (34-104) 10/16/17 09:11 Total Protein 6.4 gm/dL (6.0-8.3) 10/16/17 09:11 Albumin 3.0 gm/dL (4.2-5.5) L 10/16/17 09:11 Globulin 3.4 gm/dL 10/16/17 09:11 Albumin/Globulin Ratio 0.9 (1.0-1.8) L 10/16/17 09:11 TSH 0.28 uIU/ml (0.34-5.60) L 10/14/17 06:00 Urine Source CATH 10/15/17 03:00 Urine Color BROWN 10/15/17 03:00 Urine Clarity CLOUDY (CLEAR) 10/15/17 03:00 Urine pH 5.5 (4.6 - 8.0) 10/15/17 03:00 Ur Specific [place] 1.020 (1.005-1.030) 10/15/17 03:00 Urine Protein 100 mg/dL (NEGATIVE) H 10/15/17 03:00 Urine Glucose (UA) >=1000 mg/dL (NEGATIVE) H 10/15/17 03:00 Urine Ketones TRACE mg/dL (NEGATIVE) 10/15/17 03:00 Urine Blood LARGE (NEGATIVE) H 10/15/17 03:00 Urine Nitrate NEGATIVE (NEGATIVE) 10/15/17 03:00 Urine Bilirubin SMALL (NEGATIVE) H 10/15/17 03:00 Urine Ictotest NEGATIVE (NEGATIVE) 10/15/17 03:00 Urine Urobilinogen 0.2 E.U./dL (0.2 - 1.0) 10/15/17 03:00 Ur Leukocyte Esterase TRACE (NEGATIVE) H 10/15/17 03:00 Urine RBC >100 /hpf (0-5) H 10/15/17 03:00 Urine WBC >100 /hpf (0-5) H 10/15/17 03:00 Ur Epithelial Cells OCCASIONAL /lpf (FEW) 10/15/17 03:00 Urine Bacteria MODERATE /hpf (NONE SEEN) H 10/15/17 03:00 Urine Osmolality 749 mOsmol/kg 10/15/17 03:00 Ur Random Sodium 39 mmol/L 10/15/17 03:00 Urine Creatinine 136.0 mg/dl (39.0-259.0) 10/15/17 03:00 - Physical Exam Vitals and I&O: Vital Signs Temp 97.9 F 10/22/17 12:00 Pulse 94 10/22/17 12:00 Resp 18 10/22/17 12:00 BP 129/81 10/22/17 12:00 Pulse Ox 95 10/22/17 12:00 Intake & Output 10/21/17 10/22/17 10/22/17 18:59 06:59 18:59 Intake Total 100 800 Output Total 250 Balance 100 550 Weight (lbs) 77.111 kg Intake: Intake, IV Amount 100 Levofloxacin 500mg/100mL 100 500 mg In 100 ml @ 100 mls/hr IV Q24HR [facility] Rx#: [id number] Oral 800 Output: Urine 250 Other: # Voids 300 # Bowel Movements 0 Active Medications: Current Medications Acetaminophen (Tylenol) 650 mg PO Q6HR PRN PRN Reason: mild to moderate pain Stop: 12/11/17 19:27 Last Admin: 10/16/17 03:51 Dose: 650 mg Acetaminophen/Hydrocodone Bitart ([place] 5mg/325mg) 1 tab PO Q6H PRN PRN Reason: Pain (Moderate) Stop: 12/15/17 08:21 Allopurinol (Zyloprim) 100 mg PO DAILY [facility] Stop: 12/12/17 08:59 Last Admin: 10/22/17 08:37 Dose: 100 mg [place] Oil/[place] Balsam/Trypsin (Venelex) 1 appl TP DAILY [facility] Stop: 12/12/17 15:59 Last Admin: 10/22/17 08:56 Dose: 1 appl Clonazepam (Klonopin) 1 mg PO BID IMMANUEL PRN Reason: Protocol Stop: 12/15/17 08:59 Last Admin: 10/22/17 08:38 Dose: 1 mg Famotidine (Pepcid) 20 mg PO BID [facility] Stop: 12/12/17 08:59 Last Admin: 10/22/17 08:37 Dose: 20 mg Heparin Sodium (Porcine) (Heparin) 5,000 units SUBQ Q12HR IMMANUEL PRN Reason: Protocol Stop: 12/11/17 20:59 Last Admin: 10/22/17 08:39 Dose: 5,000 units Levofloxacin (Levaquin Pb) 500 mg in 100 mls @ 100 mls/hr IV Q24HR IMMANUEL Stop: 12/14/17 05:59 Last Admin: 10/22/17 05:35 Dose: 100 mls/hr Insulin Aspart (Novolog Insulin Sliding Scale) 0 units SUBQ ACHS IMMANUEL PRN Reason: Protocol Stop: 12/11/17 20:59 Last Admin: 10/22/17 12:38 Dose: 2 units Insulin Detemir (Levemir Insulin) 16 units SUBQ DAILY IMMANUEL PRN Reason: Protocol Stop: 12/17/17 08:59 Last Admin: 10/22/17 08:40 Dose: 16 units Lorazepam (Ativan) 0.5 mg PO Q6HR PRN; Protocol PRN Reason: agitation Stop: 12/11/17 19:27 Last Admin: 10/21/17 09:24 Dose: 0.5 mg Magnesium Hydroxide (Milk Of Magnesia) 30 ml PO HS PRN PRN Reason: Constipation Stop: 12/11/17 19:27 Metoprolol Succinate (Toprol Xl) 25 mg PO BID IMMANUEL Stop: 12/12/17 16:59 Last Admin: 10/22/17 08:38 Dose: 25 mg Miscellaneous (Clinical Monitoring) 1 ea MC PRN PRN PRN Reason: RENAL Stop: 12/12/17 10:33 Olanzapine (Zyprexa Zydis) 12.5 mg PO BID IMMANUEL PRN Reason: Protocol Stop: 12/17/17 12:28 Last Admin: 10/22/17 08:37 Dose: 12.5 mg Zolpidem Tartrate (Ambien) 5 mg PO HS PRN PRN Reason: insomnia Stop: 12/11/17 19:27 Last Admin: 10/18/17 20:36 Dose: 5 mg General: Oriented x3, No acute distress HEENT: Atraumatic, PERRLA Neck: Supple Cardiovascular: Regular rate, Normal S1, Normal S2 Lungs: Clear to auscultation Abdomen: Bowel sounds, Soft Extremities: no Clubbing, no Cyanosis, no Edema Neurological: Sensation intact Skin: no Rash Psych/Mental Status: Mood NL - Procedures Procedures: Procedures Procedure Code Date JEWEL MUSC/FASCIA 20 SQ CM/< 84247 10/12/17 EXCISION OF RIGHT HIP MUSCLE, OPEN APPROACH [id number] 10/12/17 Assessment/Plan - Assessment Assessment: KEN on CKD Stage 4 decub ulcer S/P debridement Severe dehydration Ess HTN Type 2 DM Psychosis - Plan Plan: Lab - Result Diagrams 10/14/17 06:00 10/14/17 06:00 Current Medications Acetaminophen (Tylenol) 650 mg PO Q6HR PRN PRN Reason: mild to moderate pain Stop: 12/11/17 19:27 Allopurinol (Zyloprim) 100 mg PO DAILY [facility] Stop: 12/12/17 08:59 Last Admin: 10/14/17 10:00 Dose: Not Given [place] Oil/[place] Balsam/Trypsin (Venelex) 1 appl TP DAILY [facility] Stop: 12/12/17 15:59 Last Admin: 10/14/17 10:00 Dose: 1 appl Famotidine (Pepcid) 20 mg PO BID [facility] Stop: 12/12/17 08:59 Last Admin: 10/14/17 18:22 Dose: 20 mg Heparin Sodium (Porcine) (Heparin) 5,000 units SUBQ Q12HR IMMANUEL PRN Reason: Protocol Stop: 12/11/17 20:59 Last Admin: 10/14/17 07:50 Dose: Not Given Ceftriaxone Sodium 1 gm/ (Sodium Chloride) 50 mls @ 100 mls/hr IV Q24HR [facility] Stop: 12/11/17 16:44 Last Admin: 10/14/17 17:45 Dose: 100 mls/hr Insulin Aspart (Novolog Insulin Sliding Scale) 0 units SUBQ ACHS IMMANUEL PRN Reason: Protocol Stop: 12/11/17 20:59 Last Admin: 10/14/17 18:23 Dose: 6 units Lorazepam (Ativan) 0.5 mg PO Q6HR PRN; Protocol PRN Reason: agitation Stop: 12/11/17 19:27 Magnesium Hydroxide (Milk Of Magnesia) 30 ml PO HS PRN PRN Reason: Constipation Stop: 12/11/17 19:27 Metoprolol Succinate (Toprol Xl) 25 mg PO BID [facility] Stop: 12/12/17 16:59 Last Admin: 10/14/17 18:23 Dose: 25 mg Miscellaneous (Clinical Monitoring) 1 ea MC PRN PRN PRN Reason: RENAL Stop: 12/12/17 10:33 Olanzapine (Zyprexa Zydis) 5 mg PO BID IMMANUEL PRN Reason: Protocol Stop: 12/13/17 16:59 Zolpidem Tartrate (Ambien) 5 mg PO HS PRN PRN Reason: insomnia Stop: 12/11/17 Lab - Result Diagrams 10/16/17 09:11 10/22/17 05:05 Na down to 143 Kidney fnc gradually improving agree w/ Allopurinol f/u electrolytes, agree w/ Levaquin continue hydration BS better control increase Detemir replace K Placement in progress Nutritional Asmnt/Malnutr-PDOC - Dietary Evaluation Malnutrition Findings (Please click <Entered> for more info): Nutritional Asmnt/Malnutrition Start: 10/14/17 17: 10 Text: Status: Complete Freq: Document 10/14/17 17:13 GREY (Rec: 10/14/17 17:25 GREY [email or web address]) Nutritional Asmnt/Malnutrition Patient General Information Nutritional Screening High Risk Consult Diagnosis pressure ulcer, hyperglycemia, dehydration Pertinent Medical Hx/Surgical Hx DM, dementia, depression, psychosis, schizophrenia, chronic renal insuff Subjective Information Consult received for unstageble pressure ulcer on , high BG on 10/12. Per records, PO intake 50-75%. Pt was on NPO today for surgery- excisional debridement, application of wound VAC Current Diet Order/ Nutrition Support pureed, CCHO 60gm Pertinent Medications novolog Pertinent Labs 10/14 Na 152, K 4.6, BUN 56, Cr 1.8, Glucose 262, POC 236-246 , Mg 2.9 Nutritional Hx/Data Height 1.8 m Height (Calculated Centimeters) 180.3 Current Weight (lbs) 70.76 kg Weight (Calculated Kilograms) 70.8 Weight (Calculated Grams) 96180.4 [place] Body Weight 172 % [place] Body Weight 91 Body Mass Index (BMI) 21.7 Weight Status Approriate GI Symptoms GI Symptoms None Last BM 10/13 Difficult in: None Skin Integrity/Comment: scar to right upper back, decubitus ulcer to buttocks Current %PO Fair (50-74%) Estimated Nutritional Goals BEE in Kcals: Using Current wt Calories/Kcals/Kg 27-32 Kcals Calculated 3076-0067 Protein: Using Current wt Protein g/k-1.2 Protein Calculated 71-85 Fluid: ml 1917-2130ml (1ml/kcal) Nutritional Problem 2. Problem Problem altered nutrition related lab values Etiology hx of DM Signs/Symptoms: Glucose 262, POC 236-246 1. Problem Problem increased nutrition needs ( calorie and protein) Etiology increased metabolic demand for wound healing Signs/Symptoms: decubitus ulcer and surgery Intervention/Recommendation Comments 1. Continue with current diet as ordered. If PO intake low, will consider nutrition supplements 2. MD to consider vit C and zinc for wound healing 3. Monitor PO intake, wt, labs and skin integrity 4. F/U as moderate risk in 3-5 days, 3/2-3/4, PO check 3/ Expected Outcomes/Goals Expected Outcomes/Goals 1. PO intake to meet at least 75% of nutritional needs. 2. Wt stability, skin to remain intact, labs to approach WNL.
[2017-10-22] MEDS: Hydrocodone/APAP 5mg/325mg Tab PO PRN (21:26)
[2017-10-23] MEDS: Levofloxacin 500mg/100mL 500 MG/100 ML BAG IV SCH (06:16)
[2017-10-23] MEDS: INSULIN ASPART SLIDING SCALE 100 UNITS/ML UNIT SUBQ SCH ×4 (07:55→22:23)
--- NOTE | 2017-10-23 08:23 | General Progress Note ---
Subjective - Review of Systems Service Date: 10/23/17 Subjective: Patient still aggressive to staff. Patient blood sugar much better controlled on levemir 16u Daily. Objective - Results Result Diagrams: 10/16/17 09:11 10/22/17 05:05 Recent Labs: Laboratory Last Values WBC 6.7 Th/cmm (4.8-10.8) D 10/16/17 09:11 RBC 4.73 Mil/cmm (3.80-5.80) 10/16/17 09:11 Hgb 13.7 gm/dL (12-16) 10/16/17 09:11 Hct 42.8 % (41.0-60) 10/16/17 09:11 MCV 90.5 fl (80-99) 10/16/17 09:11 MCH 28.9 pg (27.0-31.0) 10/16/17 09:11 MCHC Differential 32.0 pg (28.0-36.0) 10/16/17 09:11 RDW 16.2 % (11.5-20.0) 10/16/17 09:11 Plt Count 162 Th/cmm (150-400) 10/16/17 09:11 MPV 9.7 fl 10/16/17 09:11 Neutrophils % 72.2 % (40.0-80.0) 10/16/17 09:11 Lymphocytes % 19.2 % (20.0-50.0) L 10/16/17 09:11 Monocytes % 5.9 % (2.0-10.0) 10/16/17 09:11 Eosinophils % 1.5 % (0.0-5.0) 10/16/17 09:11 Basophils % 1.2 % (0.0-2.0) 10/16/17 09:11 Eos Smear Source URINE 10/15/17 03:00 Eos Smear Total Cells FEW EOSINOPHILS SEEN (NONE SEEN) 10/15/17 03:00 PT 10.5 SECONDS (9.5-11.5) 10/14/17 06:00 INR 1.01 (0.5-1.4) 10/14/17 06:00 PTT (Actin FS) 25.3 SECONDS (26.0-38.0) L 10/14/17 06:00 Sodium 143 mEq/L (136-145) 10/22/17 05:05 Potassium 3.9 mEq/L (3.5-5.1) 10/22/17 05:05 Chloride 112 mEq/L (98-107) H 10/22/17 05:05 Carbon Dioxide 24.1 mEq/L (21.0-31.0) 10/22/17 05:05 Anion Gap 10.8 (7.0-16.0) 10/22/17 05:05 BUN 16 mg/dL (7-25) 10/22/17 05:05 Creatinine 1.0 mg/dL (0.7-1.3) 10/22/17 05:05 Est GFR ( Amer) TNP 10/22/17 05:05 Est GFR (Non-Af Amer) TNP 10/22/17 05:05 BUN/Creatinine Ratio 16.0 10/22/17 05:05 Glucose 194 mg/dL (70-105) H 10/22/17 05:05 POC Glucose 105 MG/DL (70 - 105) 10/23/17 05:25 Hemoglobin A1c % 10.5 % (4.0-6.0) H 10/14/17 05:26 Uric Acid 5.6 mg/dL (4.4-7.6) 10/20/17 09:10 Calcium 8.8 mg/dL (8.6-10.3) 10/22/17 05:05 Phosphorus 4.1 mg/dL (2.5-5.0) 10/14/17 06:00 Magnesium 2.0 mg/dL (1.9-2.7) 10/22/17 05:05 Total Bilirubin 0.6 mg/dL (0.3-1.0) 10/16/17 09:11 AST 17 U/L (13-39) 10/16/17 09:11 ALT 13 U/L (7-52) 10/16/17 09:11 Alkaline Phosphatase 81 U/L (34-104) 10/16/17 09:11 Total Protein 6.4 gm/dL (6.0-8.3) 10/16/17 09:11 Albumin 3.0 gm/dL (4.2-5.5) L 10/16/17 09:11 Globulin 3.4 gm/dL 10/16/17 09:11 Albumin/Globulin Ratio 0.9 (1.0-1.8) L 10/16/17 09:11 TSH 0.28 uIU/ml (0.34-5.60) L 10/14/17 06:00 Urine Source CATH 10/15/17 03:00 Urine Color BROWN 10/15/17 03:00 Urine Clarity CLOUDY (CLEAR) 10/15/17 03:00 Urine pH 5.5 (4.6 - 8.0) 10/15/17 03:00 Ur Specific [place] 1.020 (1.005-1.030) 10/15/17 03:00 Urine Protein 100 mg/dL (NEGATIVE) H 10/15/17 03:00 Urine Glucose (UA) >=1000 mg/dL (NEGATIVE) H 10/15/17 03:00 Urine Ketones TRACE mg/dL (NEGATIVE) 10/15/17 03:00 Urine Blood LARGE (NEGATIVE) H 10/15/17 03:00 Urine Nitrate NEGATIVE (NEGATIVE) 10/15/17 03:00 Urine Bilirubin SMALL (NEGATIVE) H 10/15/17 03:00 Urine Ictotest NEGATIVE (NEGATIVE) 10/15/17 03:00 Urine Urobilinogen 0.2 E.U./dL (0.2 - 1.0) 10/15/17 03:00 Ur Leukocyte Esterase TRACE (NEGATIVE) H 10/15/17 03:00 Urine RBC >100 /hpf (0-5) H 10/15/17 03:00 Urine WBC >100 /hpf (0-5) H 10/15/17 03:00 Ur Epithelial Cells OCCASIONAL /lpf (FEW) 10/15/17 03:00 Urine Bacteria MODERATE /hpf (NONE SEEN) H 10/15/17 03:00 Urine Osmolality 749 mOsmol/kg 10/15/17 03:00 Ur Random Sodium 39 mmol/L 10/15/17 03:00 Urine Creatinine 136.0 mg/dl (39.0-259.0) 10/15/17 03:00 - Physical Exam Vitals and I&O: Vital Signs Temp 97.7 F 10/23/17 04:00 Pulse 91 10/23/17 04:00 Resp 18 10/23/17 04:00 BP 144/78 10/23/17 04:00 Pulse Ox 98 10/23/17 04:00 Intake & Output 10/22/17 10/23/17 10/23/17 18:59 06:59 18:59 Intake Total 650 180 Output Total 300 550 Balance 350 -370 Weight (lbs) 77.111 kg 77.111 kg Intake: Oral 650 180 Output: Urine 300 550 Other: # Bowel Movements 0 0 Active Medications: Current Medications Acetaminophen (Tylenol) 650 mg PO Q6HR PRN PRN Reason: mild to moderate pain Stop: 12/11/17 19:27 Last Admin: 10/23/17 00:25 Dose: 650 mg Acetaminophen/Hydrocodone Bitart ([place] 5mg/325mg) 1 tab PO Q6H PRN PRN Reason: Pain (Moderate) Stop: 12/15/17 08:21 Last Admin: 10/22/17 21:26 Dose: 1 tab Allopurinol (Zyloprim) 100 mg PO DAILY [facility] Stop: 12/12/17 08:59 Last Admin: 10/22/17 08:37 Dose: 100 mg [place] Oil/[place] Balsam/Trypsin (Venelex) 1 appl TP DAILY [facility] Stop: 12/12/17 15:59 Last Admin: 10/22/17 08:56 Dose: 1 appl Clonazepam (Klonopin) 1 mg PO BID IMMANUEL PRN Reason: Protocol Stop: 12/15/17 08:59 Last Admin: 10/22/17 21:28 Dose: 1 mg Famotidine (Pepcid) 20 mg PO BID [facility] Stop: 12/12/17 08:59 Last Admin: 10/22/17 16:52 Dose: 20 mg Heparin Sodium (Porcine) (Heparin) 5,000 units SUBQ Q12HR IMMANUEL PRN Reason: Protocol Stop: 12/11/17 20:59 Last Admin: 10/22/17 21:10 Dose: 5,000 units Levofloxacin (Levaquin Pb) 500 mg in 100 mls @ 100 mls/hr IV Q24HR IMMANUEL Stop: 12/14/17 05:59 Last Admin: 10/23/17 06:16 Dose: 100 mls/hr Insulin Aspart (Novolog Insulin Sliding Scale) 0 units SUBQ ACHS IMMANUEL PRN Reason: Protocol Stop: 12/11/17 20:59 Last Admin: 10/23/17 07:55 Dose: Not Given Insulin Detemir (Levemir Insulin) 16 units SUBQ DAILY IMMANUEL PRN Reason: Protocol Stop: 12/17/17 08:59 Last Admin: 10/22/17 08:40 Dose: 16 units Lorazepam (Ativan) 0.5 mg PO Q6HR PRN; Protocol PRN Reason: agitation Stop: 12/11/17 19:27 Last Admin: 10/21/17 09:24 Dose: 0.5 mg Magnesium Hydroxide (Milk Of Magnesia) 30 ml PO HS PRN PRN Reason: Constipation Stop: 12/11/17 19:27 Metoprolol Succinate (Toprol Xl) 25 mg PO BID IMMANUEL Stop: 12/12/17 16:59 Last Admin: 10/22/17 16:53 Dose: 25 mg Miscellaneous (Clinical Monitoring) 1 ea MC PRN PRN PRN Reason: RENAL Stop: 12/12/17 10:33 Olanzapine (Zyprexa Zydis) 12.5 mg PO BID IMMANUEL PRN Reason: Protocol Stop: 12/17/17 12:28 Last Admin: 10/22/17 16:52 Dose: 12.5 mg Zolpidem Tartrate (Ambien) 5 mg PO HS PRN PRN Reason: insomnia Stop: 12/11/17 19:27 Last Admin: 10/18/17 20:36 Dose: 5 mg General: Oriented x3, No acute distress HEENT: Atraumatic, PERRLA Neck: Supple Cardiovascular: Regular rate, Normal S1, Normal S2 Lungs: Clear to auscultation Abdomen: Bowel sounds, Soft Extremities: no Clubbing, no Cyanosis, no Edema Neurological: Sensation intact Skin: no Rash Psych/Mental Status: Mood NL - Procedures Procedures: Procedures Procedure Code Date JEWEL MUSC/FASCIA 20 SQ CM/< 89071 10/12/17 EXCISION OF RIGHT HIP MUSCLE, OPEN APPROACH [id number] 10/12/17 Assessment/Plan - Assessment Assessment: Sacral stage III decubitus ulcer, infected. Diabetes mellitus type Depression. psychosis. Hematuria. hypernatremia resolved prerenal azotemia improved. hyperglycemia ... stable depression/anxiety gout ... on allopurinol. check uric acid level dementia schizophrenia S/P wound debridement of sacral decubitus ... continue wound care treatment. UTI KEN on CKD ... resolved. hyperkalemia resolved. discharge planning. - Plan Plan: will order cmp this AM renal consult -- Dr. Sharp sacral decubitus ... will order Gen Surgical consult -- Dr. Greene for possible wound debridement Gout ... continue allopurinol 100mg PO daily continue wound vac. continue hydrocodone PO for pain control. discharge planning Nutritional Asmnt/Malnutr-PDOC - Dietary Evaluation Malnutrition Findings (Please click <Entered> for more info): Nutritional Asmnt/Malnutrition Start: 10/14/17 17: 10 Text: Status: Complete Freq: Document 10/14/17 17:13 [facility] (Rec: 10/14/17 17:25 [facility] Nutritional Asmnt/Malnutrition Patient General Information Nutritional Screening High Risk Consult Diagnosis pressure ulcer, hyperglycemia, dehydration Pertinent Medical Hx/Surgical Hx DM, dementia, depression, psychosis, schizophrenia, chronic renal insuff Subjective Information Consult received for unstageble pressure ulcer on , high BG on 10/12. Per records, PO intake 50-75%. Pt was on NPO today for surgery- excisional debridement, application of wound VAC Current Diet Order/ Nutrition Support pureed, CCHO 60gm Pertinent Medications novolog Pertinent Labs 10/14 Na 152, K 4.6, BUN 56, Cr 1.8, Glucose 262, POC 236-246 , Mg 2.9 Nutritional Hx/Data Height 1.8 m Height (Calculated Centimeters) 180.3 Current Weight (lbs) 70.76 kg Weight (Calculated Kilograms) 70.8 Weight (Calculated Grams) 43349.4 [place] Body Weight 172 % [place] Body Weight 91 Body Mass Index (BMI) 21.7 Weight Status Approriate GI Symptoms GI Symptoms None Last BM 10/13 Difficult in: None Skin Integrity/Comment: scar to right upper back, decubitus ulcer to buttocks Current %PO Fair (50-74%) Estimated Nutritional Goals BEE in Kcals: Using Current wt Calories/Kcals/Kg 27-32 Kcals Calculated 3538-7486 Protein: Using Current wt Protein g/k-1.2 Protein Calculated 71-85 Fluid: ml 1916-2129ml (1ml/kcal) Nutritional Problem 2. Problem Problem altered nutrition related lab values Etiology hx of DM Signs/Symptoms: Glucose 262, POC 236-246 1. Problem Problem increased nutrition needs ( calorie and protein) Etiology increased metabolic demand for wound healing Signs/Symptoms: decubitus ulcer and surgery Intervention/Recommendation Comments 1. Continue with current diet as ordered. If PO intake low, will consider nutrition supplements 2. MD to consider vit C and zinc for wound healing 3. Monitor PO intake, wt, labs and skin integrity 4. F/U as moderate risk in 3-5 days, 2-10/19, PO check 3/2 Expected Outcomes/Goals Expected Outcomes/Goals 1. PO intake to meet at least 75% of nutritional needs. 2. Wt stability, skin to remain intact, labs to approach WNL.
--- NOTE | 2017-10-23 13:26 | General Progress Note ---
Subjective - Review of Systems Service Date: 10/23/17 Subjective: alert, comfortable, periods of confusion Objective - Results Result Diagrams: 10/16/17 09:11 10/22/17 05:05 Recent Labs: Laboratory Last Values WBC 6.7 Th/cmm (4.8-10.8) D 10/16/17 09:11 RBC 4.73 Mil/cmm (3.80-5.80) 10/16/17 09:11 Hgb 13.7 gm/dL (12-16) 10/16/17 09:11 Hct 42.8 % (41.0-60) 10/16/17 09:11 MCV 90.5 fl (80-99) 10/16/17 09:11 MCH 28.9 pg (27.0-31.0) 10/16/17 09:11 MCHC Differential 32.0 pg (28.0-36.0) 10/16/17 09:11 RDW 16.2 % (11.5-20.0) 10/16/17 09:11 Plt Count 162 Th/cmm (150-400) 10/16/17 09:11 MPV 9.7 fl 10/16/17 09:11 Neutrophils % 72.2 % (40.0-80.0) 10/16/17 09:11 Lymphocytes % 19.2 % (20.0-50.0) L 10/16/17 09:11 Monocytes % 5.9 % (2.0-10.0) 10/16/17 09:11 Eosinophils % 1.5 % (0.0-5.0) 10/16/17 09:11 Basophils % 1.2 % (0.0-2.0) 10/16/17 09:11 Eos Smear Source URINE 10/15/17 03:00 Eos Smear Total Cells FEW EOSINOPHILS SEEN (NONE SEEN) 10/15/17 03:00 PT 10.5 SECONDS (9.5-11.5) 10/14/17 06:00 INR 1.01 (0.5-1.4) 10/14/17 06:00 PTT (Actin FS) 25.3 SECONDS (26.0-38.0) L 10/14/17 06:00 Sodium 143 mEq/L (136-145) 10/22/17 05:05 Potassium 3.9 mEq/L (3.5-5.1) 10/22/17 05:05 Chloride 112 mEq/L (98-107) H 10/22/17 05:05 Carbon Dioxide 24.1 mEq/L (21.0-31.0) 10/22/17 05:05 Anion Gap 10.8 (7.0-16.0) 10/22/17 05:05 BUN 16 mg/dL (7-25) 10/22/17 05:05 Creatinine 1.0 mg/dL (0.7-1.3) 10/22/17 05:05 Est GFR ( Amer) TNP 10/22/17 05:05 Est GFR (Non-Af Amer) TNP 10/22/17 05:05 BUN/Creatinine Ratio 16.0 10/22/17 05:05 Glucose 194 mg/dL (70-105) H 10/22/17 05:05 POC Glucose 105 MG/DL (70 - 105) 10/23/17 05:25 Hemoglobin A1c % 10.5 % (4.0-6.0) H 10/14/17 05:26 Uric Acid 5.6 mg/dL (4.4-7.6) 10/20/17 09:10 Calcium 8.8 mg/dL (8.6-10.3) 10/22/17 05:05 Phosphorus 4.1 mg/dL (2.5-5.0) 10/14/17 06:00 Magnesium 2.0 mg/dL (1.9-2.7) 10/22/17 05:05 Total Bilirubin 0.6 mg/dL (0.3-1.0) 10/16/17 09:11 AST 17 U/L (13-39) 10/16/17 09:11 ALT 13 U/L (7-52) 10/16/17 09:11 Alkaline Phosphatase 81 U/L (34-104) 10/16/17 09:11 Total Protein 6.4 gm/dL (6.0-8.3) 10/16/17 09:11 Albumin 3.0 gm/dL (4.2-5.5) L 10/16/17 09:11 Globulin 3.4 gm/dL 10/16/17 09:11 Albumin/Globulin Ratio 0.9 (1.0-1.8) L 10/16/17 09:11 TSH 0.28 uIU/ml (0.34-5.60) L 10/14/17 06:00 Urine Source CATH 10/15/17 03:00 Urine Color BROWN 10/15/17 03:00 Urine Clarity CLOUDY (CLEAR) 10/15/17 03:00 Urine pH 5.5 (4.6 - 8.0) 10/15/17 03:00 Ur Specific [place] 1.020 (1.005-1.030) 10/15/17 03:00 Urine Protein 100 mg/dL (NEGATIVE) H 10/15/17 03:00 Urine Glucose (UA) >=1000 mg/dL (NEGATIVE) H 10/15/17 03:00 Urine Ketones TRACE mg/dL (NEGATIVE) 10/15/17 03:00 Urine Blood LARGE (NEGATIVE) H 10/15/17 03:00 Urine Nitrate NEGATIVE (NEGATIVE) 10/15/17 03:00 Urine Bilirubin SMALL (NEGATIVE) H 10/15/17 03:00 Urine Ictotest NEGATIVE (NEGATIVE) 10/15/17 03:00 Urine Urobilinogen 0.2 E.U./dL (0.2 - 1.0) 10/15/17 03:00 Ur Leukocyte Esterase TRACE (NEGATIVE) H 10/15/17 03:00 Urine RBC >100 /hpf (0-5) H 10/15/17 03:00 Urine WBC >100 /hpf (0-5) H 10/15/17 03:00 Ur Epithelial Cells OCCASIONAL /lpf (FEW) 10/15/17 03:00 Urine Bacteria MODERATE /hpf (NONE SEEN) H 10/15/17 03:00 Urine Osmolality 749 mOsmol/kg 10/15/17 03:00 Ur Random Sodium 39 mmol/L 10/15/17 03:00 Urine Creatinine 136.0 mg/dl (39.0-259.0) 10/15/17 03:00 - Physical Exam Vitals and I&O: Vital Signs Temp 97.7 F 10/23/17 04:00 Pulse 76 10/23/17 09:31 Resp 18 10/23/17 04:00 BP 144/80 10/23/17 09:31 Pulse Ox 98 10/23/17 04:00 Intake & Output 10/22/17 10/23/17 10/23/17 18:59 06:59 18:59 Intake Total 650 180 Output Total 300 550 Balance 350 -370 Weight (lbs) 77.111 kg 77.111 kg Intake: Oral 650 180 Output: Urine 300 550 Other: # Bowel Movements 0 0 Active Medications: Current Medications Acetaminophen (Tylenol) 650 mg PO Q6HR PRN PRN Reason: mild to moderate pain Stop: 12/11/17 19:27 Last Admin: 10/23/17 00:25 Dose: 650 mg Acetaminophen/Hydrocodone Bitart ([place] 5mg/325mg) 1 tab PO Q6H PRN PRN Reason: Pain (Moderate) Stop: 12/15/17 08:21 Last Admin: 10/22/17 21:26 Dose: 1 tab Allopurinol (Zyloprim) 100 mg PO DAILY [facility] Stop: 12/12/17 08:59 Last Admin: 10/23/17 09:30 Dose: 100 mg [place] Oil/German Balsam/Trypsin (Venelex) 1 appl TP DAILY [facility] Stop: 12/12/17 15:59 Last Admin: 10/22/17 08:56 Dose: 1 appl Clonazepam (Klonopin) 1 mg PO BID [facility] PRN Reason: Protocol Stop: 12/15/17 08:59 Last Admin: 10/22/17 21:28 Dose: 1 mg Famotidine (Pepcid) 20 mg PO BID [facility] Stop: 12/12/17 08:59 Last Admin: 10/23/17 09:31 Dose: 20 mg Heparin Sodium (Porcine) (Heparin) 5,000 units SUBQ Q12HR IMM[facility] PRN Reason: Protocol Stop: 12/11/17 20:59 Last Admin: 10/23/17 09:35 Dose: 5,000 units Levofloxacin (Levaquin Pb) 500 mg in 100 mls @ 100 mls/hr IV Q24HR [facility] Stop: 12/14/17 05:59 Last Admin: 10/23/17 06:16 Dose: 100 mls/hr Insulin Aspart (Novolog Insulin Sliding Scale) 0 units SUBQ ACHS IMM[facility]EL PRN Reason: Protocol Stop: 12/11/17 20:59 Last Admin: 10/23/17 07:55 Dose: Not Given Insulin Detemir (Levemir Insulin) 16 units SUBQ DAILY [facility] PRN Reason: Protocol Stop: 12/17/17 08:59 Last Admin: 10/22/17 08:40 Dose: 16 units Lorazepam (Ativan) 0.5 mg PO Q6HR PRN; Protocol PRN Reason: agitation Stop: 12/11/17 19:27 Last Admin: 10/21/17 09:24 Dose: 0.5 mg Magnesium Hydroxide (Milk Of Magnesia) 30 ml PO HS PRN PRN Reason: Constipation Stop: 12/11/17 19:27 Metoprolol Succinate (Toprol Xl) 25 mg PO BID [facility] Stop: 12/12/17 16:59 Last Admin: 10/23/17 09:31 Dose: 25 mg Miscellaneous (Clinical Monitoring) 1 ea MC PRN PRN PRN Reason: RENAL Stop: 12/12/17 10:33 Olanzapine (Zyprexa Zydis) 12.5 mg PO BID IMMANUEL PRN Reason: Protocol Stop: 12/17/17 12:28 Last Admin: 10/22/17 16:52 Dose: 12.5 mg Zolpidem Tartrate (Ambien) 5 mg PO HS PRN PRN Reason: insomnia Stop: 12/11/17 19:27 Last Admin: 10/18/17 20:36 Dose: 5 mg General: Oriented x3, No acute distress HEENT: Atraumatic, PERRLA Neck: Supple Cardiovascular: Regular rate, Normal S1, Normal S2 Lungs: Clear to auscultation Abdomen: Bowel sounds, Soft Extremities: no Clubbing, no Cyanosis, no Edema Neurological: Sensation intact Skin: no Rash Psych/Mental Status: Mood NL - Procedures Procedures: Procedures Procedure Code Date JEWEL MUSC/FASCIA 20 SQ CM/< 51677 10/12/17 EXCISION OF RIGHT HIP MUSCLE, OPEN APPROACH [id number] 10/12/17 Assessment/Plan - Assessment Assessment: KEN on CKD Stage 4 decub ulcer S/P debridement Severe dehydration Ess HTN Type 2 DM Psychosis - Plan Plan: Lab - Result Diagrams 10/14/17 06:00 10/14/17 06:00 Current Medications Acetaminophen (Tylenol) 650 mg PO Q6HR PRN PRN Reason: mild to moderate pain Stop: 12/11/17 19:27 Allopurinol (Zyloprim) 100 mg PO DAILY [facility] Stop: 12/12/17 08:59 Last Admin: 10/14/17 10:00 Dose: Not Given [place] Oil/German Balsam/Trypsin (Venelex) 1 appl TP DAILY [facility] Stop: 12/12/17 15:59 Last Admin: 10/14/17 10:00 Dose: 1 appl Famotidine (Pepcid) 20 mg PO BID [facility] Stop: 12/12/17 08:59 Last Admin: 10/14/17 18:22 Dose: 20 mg Heparin Sodium (Porcine) (Heparin) 5,000 units SUBQ Q12HR IMMANUEL PRN Reason: Protocol Stop: 12/11/17 20:59 Last Admin: 10/14/17 07:50 Dose: Not Given Ceftriaxone Sodium 1 gm/ (Sodium Chloride) 50 mls @ 100 mls/hr IV Q24HR [facility] Stop: 12/11/17 16:44 Last Admin: 10/14/17 17:45 Dose: 100 mls/hr Insulin Aspart (Novolog Insulin Sliding Scale) 0 units SUBQ ACHS IMM[facility]EL PRN Reason: Protocol Stop: 12/11/17 20:59 Last Admin: 10/14/17 18:23 Dose: 6 units Lorazepam (Ativan) 0.5 mg PO Q6HR PRN; Protocol PRN Reason: agitation Stop: 12/11/17 19:27 Magnesium Hydroxide (Milk Of Magnesia) 30 ml PO HS PRN PRN Reason: Constipation Stop: 12/11/17 19:27 Metoprolol Succinate (Toprol Xl) 25 mg PO BID [facility] Stop: 12/12/17 16:59 Last Admin: 10/14/17 18:23 Dose: 25 mg Miscellaneous (Clinical Monitoring) 1 ea MC PRN PRN PRN Reason: RENAL Stop: 12/12/17 10:33 Olanzapine (Zyprexa Zydis) 5 mg PO BID IMMANUEL PRN Reason: Protocol Stop: 12/13/17 16:59 Zolpidem Tartrate (Ambien) 5 mg PO HS PRN PRN Reason: insomnia Stop: 12/11/17 Na down to 143 Kidney fnc gradually improving agree w/ Allopurinol f/u electrolytes, agree w/ Levaquin continue hydration BS better control increase Detemir replace K Placement in progress Lab - Result Diagrams 10/16/17 09:11 10/22/17 05:05 Nutritional Asmnt/Malnutr-PDOC - Dietary Evaluation Malnutrition Findings (Please click <Entered> for more info): Nutritional Asmnt/Malnutrition Start: 10/14/17 17: 10 Text: Status: Complete Freq: Document 10/14/17 17:13 GREY (Rec: 10/14/17 17:25 GREY [email or web address]) Nutritional Asmnt/Malnutrition Patient General Information Nutritional Screening High Risk Consult Diagnosis pressure ulcer, hyperglycemia, dehydration Pertinent Medical Hx/Surgical Hx DM, dementia, depression, psychosis, schizophrenia, chronic renal insuff Subjective Information Consult received for unstageble pressure ulcer on , high BG on 10/12. Per records, PO intake 50-75%. Pt was on NPO today for surgery- excisional debridement, application of wound VAC Current Diet Order/ Nutrition Support pureed, CCHO 60gm Pertinent Medications novolog Pertinent Labs 10/14 Na 152, K 4.6, BUN 56, Cr 1.8, Glucose 262, POC 236-246 , Mg 2.9 Nutritional Hx/Data Height 1.8 m Height (Calculated Centimeters) 180.3 Current Weight (lbs) 70.76 kg Weight (Calculated Kilograms) 70.8 Weight (Calculated Grams) 94850.4 [place] Body Weight 172 % [place] Body Weight 91 Body Mass Index (BMI) 21.7 Weight Status Approriate GI Symptoms GI Symptoms None Last BM 10/13 Difficult in: None Skin Integrity/Comment: scar to right upper back, decubitus ulcer to buttocks Current %PO Fair (50-74%) Estimated Nutritional Goals BEE in Kcals: Using Current wt Calories/Kcals/Kg 27-32 Kcals Calculated 6429-3392 Protein: Using Current wt Protein g/k-1.2 Protein Calculated 71-85 Fluid: ml 1917-2130ml (1ml/kcal) Nutritional Problem 2. Problem Problem altered nutrition related lab values Etiology hx of DM Signs/Symptoms: Glucose 262, POC 236-246 1. Problem Problem increased nutrition needs ( calorie and protein) Etiology increased metabolic demand for wound healing Signs/Symptoms: decubitus ulcer and surgery Intervention/Recommendation Comments 1. Continue with current diet as ordered. If PO intake low, will consider nutrition supplements 2. MD to consider vit C and zinc for wound healing 3. Monitor PO intake, wt, labs and skin integrity 4. F/U as moderate risk in 3-5 days, 3/2-3/4, PO check 10/17 Expected Outcomes/Goals Expected Outcomes/Goals 1. PO intake to meet at least 75% of nutritional needs. 2. Wt stability, skin to remain intact, labs to approach WNL.
[2017-10-23] MEDS: Venelex 60gm Tube TP SCH (16:16)
[2017-10-23] MEDS: Insulin Detemir 100 units/mL 10mL Vial SUBQ SCH (16:16)
[2017-10-23] MEDS: OLANZapine 5 mg Oral Disintegrating Tab PO SCH ×2 (16:16→17:27)
--- NOTE | 2017-10-23 17:16 | Progress Notes ---
DATE: 10/23/2017 PSYCHIATRIC PROGRESS NOTE Chart reviewed and the patient interviewed. Also discussed the patient's condition with the staff and reviewed records and labs. The patient is slightly calmer, but he is still confused and still needs redirections. The patient also still has episodes of agitation and irritability, but also seems to be less than before. He is still unable to provide any safe plan for self-care. Otherwise, the patient is compliant with taking his medications with no side effects of medications. ASSESSMENT: The patient is still psychotic and considered to be gravely disabled. TREATMENT PLAN: Continue monitoring his behavior and his condition and will continue to follow up. JOB# [id number]
[2017-10-24] MEDS: Levofloxacin 500mg/100mL 500 MG/100 ML BAG IV SCH (06:11)
--- NOTE | 2017-10-24 08:25 | General Progress Note ---
Subjective - Review of Systems Service Date: 10/24/17 Subjective: patient is awake and alert. no acute distress. patient eating fine. Patient blood sugar improving. will increase levemir to 18u Daily. Objective - Results Result Diagrams: 10/16/17 09:11 10/22/17 05:05 Recent Labs: Laboratory Last Values WBC 6.7 Th/cmm (4.8-10.8) D 10/16/17 09:11 RBC 4.73 Mil/cmm (3.80-5.80) 10/16/17 09:11 Hgb 13.7 gm/dL (12-16) 10/16/17 09:11 Hct 42.8 % (41.0-60) 10/16/17 09:11 MCV 90.5 fl (80-99) 10/16/17 09:11 MCH 28.9 pg (27.0-31.0) 10/16/17 09:11 MCHC Differential 32.0 pg (28.0-36.0) 10/16/17 09:11 RDW 16.2 % (11.5-20.0) 10/16/17 09:11 Plt Count 162 Th/cmm (150-400) 10/16/17 09:11 MPV 9.7 fl 10/16/17 09:11 Neutrophils % 72.2 % (40.0-80.0) 10/16/17 09:11 Lymphocytes % 19.2 % (20.0-50.0) L 10/16/17 09:11 Monocytes % 5.9 % (2.0-10.0) 10/16/17 09:11 Eosinophils % 1.5 % (0.0-5.0) 10/16/17 09:11 Basophils % 1.2 % (0.0-2.0) 10/16/17 09:11 Eos Smear Source URINE 10/15/17 03:00 Eos Smear Total Cells FEW EOSINOPHILS SEEN (NONE SEEN) 10/15/17 03:00 PT 10.5 SECONDS (9.5-11.5) 10/14/17 06:00 INR 1.01 (0.5-1.4) 10/14/17 06:00 PTT (Actin FS) 25.3 SECONDS (26.0-38.0) L 10/14/17 06:00 Sodium 143 mEq/L (136-145) 10/22/17 05:05 Potassium 3.9 mEq/L (3.5-5.1) 10/22/17 05:05 Chloride 112 mEq/L (98-107) H 10/22/17 05:05 Carbon Dioxide 24.1 mEq/L (21.0-31.0) 10/22/17 05:05 Anion Gap 10.8 (7.0-16.0) 10/22/17 05:05 BUN 16 mg/dL (7-25) 10/22/17 05:05 Creatinine 1.0 mg/dL (0.7-1.3) 10/22/17 05:05 Est GFR ( Amer) TNP 10/22/17 05:05 Est GFR (Non-Af Amer) TNP 10/22/17 05:05 BUN/Creatinine Ratio 16.0 10/22/17 05:05 Glucose 194 mg/dL (70-105) H 10/22/17 05:05 POC Glucose 216 MG/DL (70 - 105) H 10/24/17 06:17 Hemoglobin A1c % 10.5 % (4.0-6.0) H 10/14/17 05:26 Uric Acid 5.6 mg/dL (4.4-7.6) 10/20/17 09:10 Calcium 8.8 mg/dL (8.6-10.3) 10/22/17 05:05 Phosphorus 4.1 mg/dL (2.5-5.0) 10/14/17 06:00 Magnesium 2.0 mg/dL (1.9-2.7) 10/22/17 05:05 Total Bilirubin 0.6 mg/dL (0.3-1.0) 10/16/17 09:11 AST 17 U/L (13-39) 10/16/17 09:11 ALT 13 U/L (7-52) 10/16/17 09:11 Alkaline Phosphatase 81 U/L (34-104) 10/16/17 09:11 Total Protein 6.4 gm/dL (6.0-8.3) 10/16/17 09:11 Albumin 3.0 gm/dL (4.2-5.5) L 10/16/17 09:11 Globulin 3.4 gm/dL 10/16/17 09:11 Albumin/Globulin Ratio 0.9 (1.0-1.8) L 10/16/17 09:11 TSH 0.28 uIU/ml (0.34-5.60) L 10/14/17 06:00 Urine Source CATH 10/15/17 03:00 Urine Color BROWN 10/15/17 03:00 Urine Clarity CLOUDY (CLEAR) 10/15/17 03:00 Urine pH 5.5 (4.6 - 8.0) 10/15/17 03:00 Ur Specific [place] 1.020 (1.005-1.030) 10/15/17 03:00 Urine Protein 100 mg/dL (NEGATIVE) H 10/15/17 03:00 Urine Glucose (UA) >=1000 mg/dL (NEGATIVE) H 10/15/17 03:00 Urine Ketones TRACE mg/dL (NEGATIVE) 10/15/17 03:00 Urine Blood LARGE (NEGATIVE) H 10/15/17 03:00 Urine Nitrate NEGATIVE (NEGATIVE) 10/15/17 03:00 Urine Bilirubin SMALL (NEGATIVE) H 10/15/17 03:00 Urine Ictotest NEGATIVE (NEGATIVE) 10/15/17 03:00 Urine Urobilinogen 0.2 E.U./dL (0.2 - 1.0) 10/15/17 03:00 Ur Leukocyte Esterase TRACE (NEGATIVE) H 10/15/17 03:00 Urine RBC >100 /hpf (0-5) H 10/15/17 03:00 Urine WBC >100 /hpf (0-5) H 10/15/17 03:00 Ur Epithelial Cells OCCASIONAL /lpf (FEW) 10/15/17 03:00 Urine Bacteria MODERATE /hpf (NONE SEEN) H 10/15/17 03:00 Urine Osmolality 749 mOsmol/kg 10/15/17 03:00 Ur Random Sodium 39 mmol/L 10/15/17 03:00 Urine Creatinine 136.0 mg/dl (39.0-259.0) 10/15/17 03:00 - Physical Exam Vitals and I&O: Vital Signs Temp 97.8 F 10/24/17 04:00 Pulse 109 10/24/17 04:00 Resp 18 10/24/17 04:00 BP 156/91 10/24/17 04:00 Pulse Ox 98 10/24/17 04:00 Intake & Output 10/23/17 10/24/17 10/24/17 18:59 06:59 18:59 Intake Total 100 100 Output Total 300 650 Balance -200 -550 Weight (lbs) 77.111 kg 77.111 kg Intake: Intake, IV Amount 100 Levofloxacin 500mg/100mL 100 500 mg In 100 ml @ 100 mls/hr IV Q24HR [facility] Rx#: [id number] Oral 100 Output: Urine 300 650 Other: # Bowel Movements 0 Active Medications: Current Medications Acetaminophen (Tylenol) 650 mg PO Q6HR PRN PRN Reason: mild to moderate pain Stop: 12/11/17 19:27 Last Admin: 10/23/17 00:25 Dose: 650 mg Acetaminophen/Hydrocodone Bitart ([place] 5mg/325mg) 1 tab PO Q6H PRN PRN Reason: Pain (Moderate) Stop: 12/15/17 08:21 Last Admin: 10/22/17 21:26 Dose: 1 tab Allopurinol (Zyloprim) 100 mg PO DAILY [facility] Stop: 12/12/17 08:59 Last Admin: 10/23/17 09:30 Dose: 100 mg [place] Oil/[place] Balsam/Trypsin (Venelex) 1 appl TP DAILY [facility] Stop: 12/12/17 15:59 Last Admin: 10/23/17 16:16 Dose: Not Given Clonazepam (Klonopin) 1 mg PO BID [facility] PRN Reason: Protocol Stop: 12/15/17 08:59 Last Admin: 10/23/17 17:29 Dose: Not Given Famotidine (Pepcid) 20 mg PO BID [facility] Stop: 12/12/17 08:59 Last Admin: 10/23/17 17:29 Dose: Not Given Heparin Sodium (Porcine) (Heparin) 5,000 units SUBQ Q12HR [facility]MM[facility]EL PRN Reason: Protocol Stop: 12/11/17 20:59 Last Admin: 10/23/17 21:55 Dose: 5,000 units Levofloxacin (Levaquin Pb) 500 mg in 100 mls @ 100 mls/hr IV Q24HR [facility] Stop: 12/14/17 05:59 Last Admin: 10/24/17 06:11 Dose: 100 mls/hr Insulin Aspart (Novolog Insulin Sliding Scale) 0 units SUBQ ACHS [facility]MM[facility]EL PRN Reason: Protocol Stop: 12/11/17 20:59 Last Admin: 10/23/17 22:23 Dose: 4 units Insulin Detemir (Levemir Insulin) 18 units SUBQ DAILY [facility] PRN Reason: Protocol Stop: 12/23/17 08:13 Lorazepam (Ativan) 0.5 mg PO Q6HR PRN; Protocol PRN Reason: agitation Stop: 12/11/17 19:27 Last Admin: 10/24/17 00:09 Dose: 0.5 mg Magnesium Hydroxide (Milk Of Magnesia) 30 ml PO HS PRN PRN Reason: Constipation Stop: 12/11/17 19:27 Metoprolol Succinate (Toprol Xl) 25 mg PO BID [facility] Stop: 12/12/17 16:59 Last Admin: 10/23/17 17:29 Dose: Not Given Miscellaneous (Clinical Monitoring) 1 ea MC PRN PRN PRN Reason: RENAL Stop: 12/12/17 10:33 Olanzapine (Zyprexa Zydis) 12.5 mg PO BID IMMANUEL PRN Reason: Protocol Stop: 12/17/17 12:28 Last Admin: 10/23/17 17:27 Dose: 12.5 mg Zolpidem Tartrate (Ambien) 5 mg PO HS PRN PRN Reason: insomnia Stop: 12/11/17 19:27 Last Admin: 10/18/17 20:36 Dose: 5 mg General: Oriented x3, No acute distress HEENT: Atraumatic, PERRLA Neck: Supple Cardiovascular: Regular rate, Normal S1, Normal S2 Lungs: Clear to auscultation Abdomen: Bowel sounds, Soft Extremities: no Clubbing, no Cyanosis, no Edema Neurological: Sensation intact Skin: no Rash Psych/Mental Status: Mood NL - Procedures Procedures: Procedures Procedure Code Date JEWEL MUSC/FASCIA 20 SQ CM/< 13329 10/12/17 EXCISION OF RIGHT HIP MUSCLE, OPEN APPROACH [id number] 10/12/17 Assessment/Plan - Assessment Assessment: Sacral stage III decubitus ulcer, infected. Diabetes mellitus type Depression. psychosis. Hematuria. hypernatremia resolved prerenal azotemia improved. hyperglycemia ... stable depression/anxiety gout ... on allopurinol. check uric acid level dementia schizophrenia S/P wound debridement of sacral decubitus ... continue wound care treatment. UTI KEN on CKD ... resolved. hyperkalemia resolved. discharge planning. - Plan Plan: will order cmp this AM renal consult -- Dr. Sharp sacral decubitus ... will order Gen Surgical consult -- Dr. Greene for possible wound debridement Gout ... continue allopurinol 100mg PO daily continue wound vac. continue hydrocodone PO for pain control. discharge planning/placement Nutritional Asmnt/Malnutr-PDOC - Dietary Evaluation Malnutrition Findings (Please click <Entered> for more info): Nutritional Asmnt/Malnutrition Start: 10/14/17 17: 10 Text: Status: Complete Freq: Document 10/14/17 17:13 HENG (Rec: 10/14/17 17:25 LCHEN [email or web address]) Nutritional Asmnt/Malnutrition Patient General Information Nutritional Screening High Risk Consult Diagnosis pressure ulcer, hyperglycemia, dehydration Pertinent Medical Hx/Surgical Hx DM, dementia, depression, psychosis, schizophrenia, chronic renal insuff Subjective Information Consult received for unstageble pressure ulcer on , high BG on 10/12. Per records, PO intake 50-75%. Pt was on NPO today for surgery- excisional debridement, application of wound VAC Current Diet Order/ Nutrition Support pureed, CCHO 60gm Pertinent Medications novolog Pertinent Labs 10/14 Na 152, K 4.6, BUN 56, Cr 1.8, Glucose 262, POC 236-246 , Mg 2.9 Nutritional Hx/Data Height 1.8 m Height (Calculated Centimeters) 180.3 Current Weight (lbs) 70.76 kg Weight (Calculated Kilograms) 70.8 Weight (Calculated Grams) 19437.4 [place] Body Weight 172 % [place] Body Weight 91 Body Mass Index (BMI) 21.7 Weight Status Approriate GI Symptoms GI Symptoms None Last BM 10/13 Difficult in: None Skin Integrity/Comment: scar to right upper back, decubitus ulcer to buttocks Current %PO Fair (50-74%) Estimated Nutritional Goals BEE in Kcals: Using Current wt Calories/Kcals/Kg 27-32 Kcals Calculated 2379-8246 Protein: Using Current wt Protein g/k-1.2 Protein Calculated 71-85 Fluid: ml 1917-2130ml (1ml/kcal) Nutritional Problem 2. Problem Problem altered nutrition related lab values Etiology hx of DM Signs/Symptoms: Glucose 262, POC 236-246 1. Problem Problem increased nutrition needs ( calorie and protein) Etiology increased metabolic demand for wound healing Signs/Symptoms: decubitus ulcer and surgery Intervention/Recommendation Comments 1. Continue with current diet as ordered. If PO intake low, will consider nutrition supplements 2. MD to consider vit C and zinc for wound healing 3. Monitor PO intake, wt, labs and skin integrity 4. F/U as moderate risk in 3-5 days, 3/-10/19, PO check / Expected Outcomes/Goals Expected Outcomes/Goals 1. PO intake to meet at least 75% of nutritional needs. 2. Wt stability, skin to remain intact, labs to approach WNL.
[2017-10-24] MEDS: OLANZapine 5 mg Oral Disintegrating Tab PO SCH ×2 (09:45→17:24)
[2017-10-24] MEDS: INSULIN ASPART SLIDING SCALE 100 UNITS/ML UNIT SUBQ SCH ×4 (09:46→21:07)
[2017-10-24] MEDS: Insulin Detemir 100 units/mL 10mL Vial SUBQ SCH (09:47)
[2017-10-24] MEDS: Venelex 60gm Tube TP SCH (09:52)
--- NOTE | 2017-10-24 17:11 | General Progress Note ---
Subjective - Review of Systems Service Date: 10/24/17 Subjective: alert, comfortable, periods of confusion Objective - Results Result Diagrams: 10/16/17 09:11 10/22/17 05:05 Recent Labs: Laboratory Last Values WBC 6.7 Th/cmm (4.8-10.8) D 10/16/17 09:11 RBC 4.73 Mil/cmm (3.80-5.80) 10/16/17 09:11 Hgb 13.7 gm/dL (12-16) 10/16/17 09:11 Hct 42.8 % (41.0-60) 10/16/17 09:11 MCV 90.5 fl (80-99) 10/16/17 09:11 MCH 28.9 pg (27.0-31.0) 10/16/17 09:11 MCHC Differential 32.0 pg (28.0-36.0) 10/16/17 09:11 RDW 16.2 % (11.5-20.0) 10/16/17 09:11 Plt Count 162 Th/cmm (150-400) 10/16/17 09:11 MPV 9.7 fl 10/16/17 09:11 Neutrophils % 72.2 % (40.0-80.0) 10/16/17 09:11 Lymphocytes % 19.2 % (20.0-50.0) L 10/16/17 09:11 Monocytes % 5.9 % (2.0-10.0) 10/16/17 09:11 Eosinophils % 1.5 % (0.0-5.0) 10/16/17 09:11 Basophils % 1.2 % (0.0-2.0) 10/16/17 09:11 Eos Smear Source URINE 10/15/17 03:00 Eos Smear Total Cells FEW EOSINOPHILS SEEN (NONE SEEN) 10/15/17 03:00 PT 10.5 SECONDS (9.5-11.5) 10/14/17 06:00 INR 1.01 (0.5-1.4) 10/14/17 06:00 PTT (Actin FS) 25.3 SECONDS (26.0-38.0) L 10/14/17 06:00 Sodium 143 mEq/L (136-145) 10/22/17 05:05 Potassium 3.9 mEq/L (3.5-5.1) 10/22/17 05:05 Chloride 112 mEq/L (98-107) H 10/22/17 05:05 Carbon Dioxide 24.1 mEq/L (21.0-31.0) 10/22/17 05:05 Anion Gap 10.8 (7.0-16.0) 10/22/17 05:05 BUN 16 mg/dL (7-25) 10/22/17 05:05 Creatinine 1.0 mg/dL (0.7-1.3) 10/22/17 05:05 Est GFR ( Amer) TNP 10/22/17 05:05 Est GFR (Non-Af Amer) TNP 10/22/17 05:05 BUN/Creatinine Ratio 16.0 10/22/17 05:05 Glucose 194 mg/dL (70-105) H 10/22/17 05:05 POC Glucose 213 MG/DL (70 - 105) H 10/24/17 12:15 Hemoglobin A1c % 10.5 % (4.0-6.0) H 10/14/17 05:26 Uric Acid 5.6 mg/dL (4.4-7.6) 10/20/17 09:10 Calcium 8.8 mg/dL (8.6-10.3) 10/22/17 05:05 Phosphorus 4.1 mg/dL (2.5-5.0) 10/14/17 06:00 Magnesium 2.0 mg/dL (1.9-2.7) 10/22/17 05:05 Total Bilirubin 0.6 mg/dL (0.3-1.0) 10/16/17 09:11 AST 17 U/L (13-39) 10/16/17 09:11 ALT 13 U/L (7-52) 10/16/17 09:11 Alkaline Phosphatase 81 U/L (34-104) 10/16/17 09:11 Total Protein 6.4 gm/dL (6.0-8.3) 10/16/17 09:11 Albumin 3.0 gm/dL (4.2-5.5) L 10/16/17 09:11 Globulin 3.4 gm/dL 10/16/17 09:11 Albumin/Globulin Ratio 0.9 (1.0-1.8) L 10/16/17 09:11 TSH 0.28 uIU/ml (0.34-5.60) L 10/14/17 06:00 Urine Source CATH 10/15/17 03:00 Urine Color BROWN 10/15/17 03:00 Urine Clarity CLOUDY (CLEAR) 10/15/17 03:00 Urine pH 5.5 (4.6 - 8.0) 10/15/17 03:00 Ur Specific [place] 1.020 (1.005-1.030) 10/15/17 03:00 Urine Protein 100 mg/dL (NEGATIVE) H 10/15/17 03:00 Urine Glucose (UA) >=1000 mg/dL (NEGATIVE) H 10/15/17 03:00 Urine Ketones TRACE mg/dL (NEGATIVE) 10/15/17 03:00 Urine Blood LARGE (NEGATIVE) H 10/15/17 03:00 Urine Nitrate NEGATIVE (NEGATIVE) 10/15/17 03:00 Urine Bilirubin SMALL (NEGATIVE) H 10/15/17 03:00 Urine Ictotest NEGATIVE (NEGATIVE) 10/15/17 03:00 Urine Urobilinogen 0.2 E.U./dL (0.2 - 1.0) 10/15/17 03:00 Ur Leukocyte Esterase TRACE (NEGATIVE) H 10/15/17 03:00 Urine RBC >100 /hpf (0-5) H 10/15/17 03:00 Urine WBC >100 /hpf (0-5) H 10/15/17 03:00 Ur Epithelial Cells OCCASIONAL /lpf (FEW) 10/15/17 03:00 Urine Bacteria MODERATE /hpf (NONE SEEN) H 10/15/17 03:00 Urine Osmolality 749 mOsmol/kg 10/15/17 03:00 Ur Random Sodium 39 mmol/L 10/15/17 03:00 Urine Creatinine 136.0 mg/dl (39.0-259.0) 10/15/17 03:00 - Physical Exam Vitals and I&O: Vital Signs Temp 97.6 F 10/24/17 12:00 Pulse 117 10/24/17 12:00 Resp 18 10/24/17 12:00 BP 157/81 10/24/17 12:00 Pulse Ox 98 10/24/17 12:00 Intake & Output 10/23/17 10/24/17 10/24/17 18:59 06:59 18:59 Intake Total 100 100 Output Total 300 650 Balance -200 -550 Weight (lbs) 77.111 kg 77.111 kg Intake: Intake, IV Amount 100 Levofloxacin 500mg/100mL 100 500 mg In 100 ml @ 100 mls/hr IV Q24HR [facility] Rx#: [id number] Oral 100 Output: Urine 300 650 Other: # Bowel Movements 0 Active Medications: Current Medications Acetaminophen (Tylenol) 650 mg PO Q6HR PRN PRN Reason: mild to moderate pain Stop: 12/11/17 19:27 Last Admin: 10/23/17 00:25 Dose: 650 mg Acetaminophen/Hydrocodone Bitart ([place] 5mg/325mg) 1 tab PO Q6H PRN PRN Reason: Pain (Moderate) Stop: 12/15/17 08:21 Last Admin: 10/22/17 21:26 Dose: 1 tab Allopurinol (Zyloprim) 100 mg PO DAILY [facility] Stop: 12/12/17 08:59 Last Admin: 10/24/17 09:45 Dose: 100 mg [place] Oil/Swedish Balsam/Trypsin (Venelex) 1 appl TP DAILY [facility] Stop: 12/12/17 15:59 Last Admin: 10/24/17 09:52 Dose: 1 appl Clonazepam (Klonopin) 1 mg PO BID IMM[facility]UEL PRN Reason: Protocol Stop: 12/15/17 08:59 Last Admin: 10/24/17 09:45 Dose: 1 mg Famotidine (Pepcid) 20 mg PO BID [facility] Stop: 12/12/17 08:59 Last Admin: 10/24/17 09:46 Dose: 20 mg Heparin Sodium (Porcine) (Heparin) 5,000 units SUBQ Q12HR IMM[facility] PRN Reason: Protocol Stop: 12/11/17 20:59 Last Admin: 10/24/17 09:46 Dose: 5,000 units Levofloxacin (Levaquin Pb) 500 mg in 100 mls @ 100 mls/hr IV Q24HR [facility] Stop: 12/14/17 05:59 Last Admin: 10/24/17 06:11 Dose: 100 mls/hr Insulin Aspart (Novolog Insulin Sliding Scale) 0 units SUBQ ACHS IMMANUEL PRN Reason: Protocol Stop: 12/11/17 20:59 Last Admin: 10/24/17 12:19 Dose: 4 units Insulin Detemir (Levemir Insulin) 18 units SUBQ DAILY I[facility] PRN Reason: Protocol Stop: 12/23/17 08:13 Last Admin: 10/24/17 09:47 Dose: 18 units Lorazepam (Ativan) 0.5 mg PO Q6HR PRN; Protocol PRN Reason: agitation Stop: 12/11/17 19:27 Last Admin: 10/24/17 00:09 Dose: 0.5 mg Magnesium Hydroxide (Milk Of Magnesia) 30 ml PO HS PRN PRN Reason: Constipation Stop: 12/11/17 19:27 Metoprolol Succinate (Toprol Xl) 25 mg PO BID I[facility]UEL Stop: 12/12/17 16:59 Last Admin: 10/24/17 09:44 Dose: 25 mg Miscellaneous (Clinical Monitoring) 1 ea MC PRN PRN PRN Reason: RENAL Stop: 12/12/17 10:33 Olanzapine (Zyprexa Zydis) 12.5 mg PO BID IMMANUEL PRN Reason: Protocol Stop: 12/17/17 12:28 Last Admin: 10/24/17 09:45 Dose: 12.5 mg Zolpidem Tartrate (Ambien) 5 mg PO HS PRN PRN Reason: insomnia Stop: 12/11/17 19:27 Last Admin: 10/18/17 20:36 Dose: 5 mg General: No acute distress HEENT: Atraumatic, PERRLA Neck: Supple Cardiovascular: Regular rate, Normal S1, Normal S2 Lungs: Clear to auscultation Abdomen: Bowel sounds, Soft Extremities: no Clubbing, no Cyanosis, no Edema Neurological: Sensation intact Skin: no Rash Psych/Mental Status: Mood NL - Procedures Procedures: Procedures Procedure Code Date JEWEL MUSC/FASCIA 20 SQ CM/< 80605 10/12/17 EXCISION OF RIGHT HIP MUSCLE, OPEN APPROACH [id number] 10/12/17 Assessment/Plan - Assessment Assessment: KEN on CKD Stage 4 decub ulcer S/P debridement Severe dehydration Ess HTN Type 2 DM Psychosis - Plan Plan: Lab - Result Diagrams 10/14/17 06:00 10/14/17 06:00 Current Medications Acetaminophen (Tylenol) 650 mg PO Q6HR PRN PRN Reason: mild to moderate pain Stop: 12/11/17 19:27 Allopurinol (Zyloprim) 100 mg PO DAILY [facility] Stop: 12/12/17 08:59 Last Admin: 10/14/17 10:00 Dose: Not Given [place] Oil/Swedish Balsam/Trypsin (Venelex) 1 appl TP DAILY [facility] Stop: 12/12/17 15:59 Last Admin: 10/14/17 10:00 Dose: 1 appl Famotidine (Pepcid) 20 mg PO BID [facility] Stop: 12/12/17 08:59 Last Admin: 10/14/17 18:22 Dose: 20 mg Heparin Sodium (Porcine) (Heparin) 5,000 units SUBQ Q12HR IMMANUEL PRN Reason: Protocol Stop: 12/11/17 20:59 Last Admin: 10/14/17 07:50 Dose: Not Given Ceftriaxone Sodium 1 gm/ (Sodium Chloride) 50 mls @ 100 mls/hr IV Q24HR [facility] Stop: 12/11/17 16:44 Last Admin: 10/14/17 17:45 Dose: 100 mls/hr Insulin Aspart (Novolog Insulin Sliding Scale) 0 units SUBQ ACHS IMMANUEL PRN Reason: Protocol Stop: 12/11/17 20:59 Last Admin: 10/14/17 18:23 Dose: 6 units Lorazepam (Ativan) 0.5 mg PO Q6HR PRN; Protocol PRN Reason: agitation Stop: 12/11/17 19:27 Magnesium Hydroxide (Milk Of Magnesia) 30 ml PO HS PRN PRN Reason: Constipation Stop: 12/11/17 19:27 Metoprolol Succinate (Toprol Xl) 25 mg PO BID [facility] Stop: 12/12/17 16:59 Last Admin: 10/14/17 18:23 Dose: 25 mg Miscellaneous (Clinical Monitoring) 1 ea MC PRN PRN PRN Reason: RENAL Stop: 12/12/17 10:33 Olanzapine (Zyprexa Zydis) 5 mg PO BID IMMANUEL PRN Reason: Protocol Stop: 12/13/17 16:59 Zolpidem Tartrate (Ambien) 5 mg PO HS PRN PRN Reason: insomnia Stop: 12/11/17 Lab - Result Diagrams 10/16/17 09:11 10/22/17 05:05 Na down to 143 Kidney fnc gradually improving agree w/ Allopurinol f/u electrolytes, agree w/ Levaquin continue hydration BS better control increase Detemir replace K Placement in progress Nutritional Asmnt/Malnutr-PDOC - Dietary Evaluation Malnutrition Findings (Please click <Entered> for more info): Nutritional Asmnt/Malnutrition Start: 10/14/17 17: 10 Text: Status: Complete Freq: Document 10/14/17 17:13 [facility]Y (Rec: 10/14/17 17:25 LCHEATHER [email or web address]) Nutritional Asmnt/Malnutrition Patient General Information Nutritional Screening High Risk Consult Diagnosis pressure ulcer, hyperglycemia, dehydration Pertinent Medical Hx/Surgical Hx DM, dementia, depression, psychosis, schizophrenia, chronic renal insuff Subjective Information Consult received for unstageble pressure ulcer on , high BG on 10/12. Per records, PO intake 50-75%. Pt was on NPO today for surgery- excisional debridement, application of wound VAC Current Diet Order/ Nutrition Support pureed, CCHO 60gm Pertinent Medications novolog Pertinent Labs 10/14 Na 152, K 4.6, BUN 56, Cr 1.8, Glucose 262, POC 236-246 , Mg 2.9 Nutritional Hx/Data Height 1.8 m Height (Calculated Centimeters) 180.3 Current Weight (lbs) 70.76 kg Weight (Calculated Kilograms) 70.8 Weight (Calculated Grams) 42019.4 [place] Body Weight 172 % [place] Body Weight 91 Body Mass Index (BMI) 21.7 Weight Status Approriate GI Symptoms GI Symptoms None Last BM 10/13 Difficult in: None Skin Integrity/Comment: scar to right upper back, decubitus ulcer to buttocks Current %PO Fair (50-74%) Estimated Nutritional Goals BEE in Kcals: Using Current wt Calories/Kcals/Kg 27-32 Kcals Calculated 8145-7020 Protein: Using Current wt Protein g/k-1.2 Protein Calculated 71-85 Fluid: ml 1917-2130ml (1ml/kcal) Nutritional Problem 2. Problem Problem altered nutrition related lab values Etiology hx of DM Signs/Symptoms: Glucose 262, POC 236-246 1. Problem Problem increased nutrition needs ( calorie and protein) Etiology increased metabolic demand for wound healing Signs/Symptoms: decubitus ulcer and surgery Intervention/Recommendation Comments 1. Continue with current diet as ordered. If PO intake low, will consider nutrition supplements 2. MD to consider vit C and zinc for wound healing 3. Monitor PO intake, wt, labs and skin integrity 4. F/U as moderate risk in 3-5 days, 3/2-3/4, PO check / Expected Outcomes/Goals Expected Outcomes/Goals 1. PO intake to meet at least 75% of nutritional needs. 2. Wt stability, skin to remain intact, labs to approach WNL.
--- NOTE | 2017-10-24 19:12 | Progress Notes ---
DATE: SUBJECTIVE: Chart reviewed and the patient interviewed. Also discussed the patient's condition with the staff and reviewed records and labs. The patient is still anxious, but he seems to be calmer. Also seems to be slightly confused. The patient was waving with his hand, but unable to carry out any conversation. Also seems to be calm and is slightly easier to follow directions. The patient is compliant with taking his medications with no side effects of medications. ASSESSMENT: The patient is less agitated and compliant with treatment. TREATMENT PLAN: We will continue to monitor his behavior and his condition and continue to follow up. JOB# [id number]
--- NOTE | 2017-10-25 05:44 | General Progress Note ---
Subjective - Review of Systems Service Date: 10/25/17 Subjective: Patient is awake and alert. no acute distress. patient eating fine. Irritable. Patient blood sugar improving. will increase levemir to 18u Daily. Objective - Results Result Diagrams: 10/16/17 09:11 10/22/17 05:05 Recent Labs: Laboratory Last Values WBC 6.7 Th/cmm (4.8-10.8) D 10/16/17 09:11 RBC 4.73 Mil/cmm (3.80-5.80) 10/16/17 09:11 Hgb 13.7 gm/dL (12-16) 10/16/17 09:11 Hct 42.8 % (41.0-60) 10/16/17 09:11 MCV 90.5 fl (80-99) 10/16/17 09:11 MCH 28.9 pg (27.0-31.0) 10/16/17 09:11 MCHC Differential 32.0 pg (28.0-36.0) 10/16/17 09:11 RDW 16.2 % (11.5-20.0) 10/16/17 09:11 Plt Count 162 Th/cmm (150-400) 10/16/17 09:11 MPV 9.7 fl 10/16/17 09:11 Neutrophils % 72.2 % (40.0-80.0) 10/16/17 09:11 Lymphocytes % 19.2 % (20.0-50.0) L 10/16/17 09:11 Monocytes % 5.9 % (2.0-10.0) 10/16/17 09:11 Eosinophils % 1.5 % (0.0-5.0) 10/16/17 09:11 Basophils % 1.2 % (0.0-2.0) 10/16/17 09:11 Eos Smear Source URINE 10/15/17 03:00 Eos Smear Total Cells FEW EOSINOPHILS SEEN (NONE SEEN) 10/15/17 03:00 PT 10.5 SECONDS (9.5-11.5) 10/14/17 06:00 INR 1.01 (0.5-1.4) 10/14/17 06:00 PTT (Actin FS) 25.3 SECONDS (26.0-38.0) L 10/14/17 06:00 Sodium 143 mEq/L (136-145) 10/22/17 05:05 Potassium 3.9 mEq/L (3.5-5.1) 10/22/17 05:05 Chloride 112 mEq/L (98-107) H 10/22/17 05:05 Carbon Dioxide 24.1 mEq/L (21.0-31.0) 10/22/17 05:05 Anion Gap 10.8 (7.0-16.0) 10/22/17 05:05 BUN 16 mg/dL (7-25) 10/22/17 05:05 Creatinine 1.0 mg/dL (0.7-1.3) 10/22/17 05:05 Est GFR ( Amer) TNP 10/22/17 05:05 Est GFR (Non-Af Amer) TNP 10/22/17 05:05 BUN/Creatinine Ratio 16.0 10/22/17 05:05 Glucose 194 mg/dL (70-105) H 10/22/17 05:05 POC Glucose 99 MG/DL (70 - 105) 10/24/17 17:29 Hemoglobin A1c % 10.5 % (4.0-6.0) H 10/14/17 05:26 Uric Acid 5.6 mg/dL (4.4-7.6) 10/20/17 09:10 Calcium 8.8 mg/dL (8.6-10.3) 10/22/17 05:05 Phosphorus 4.1 mg/dL (2.5-5.0) 10/14/17 06:00 Magnesium 2.0 mg/dL (1.9-2.7) 10/22/17 05:05 Total Bilirubin 0.6 mg/dL (0.3-1.0) 10/16/17 09:11 AST 17 U/L (13-39) 10/16/17 09:11 ALT 13 U/L (7-52) 10/16/17 09:11 Alkaline Phosphatase 81 U/L (34-104) 10/16/17 09:11 Total Protein 6.4 gm/dL (6.0-8.3) 10/16/17 09:11 Albumin 3.0 gm/dL (4.2-5.5) L 10/16/17 09:11 Globulin 3.4 gm/dL 10/16/17 09:11 Albumin/Globulin Ratio 0.9 (1.0-1.8) L 10/16/17 09:11 TSH 0.28 uIU/ml (0.34-5.60) L 10/14/17 06:00 Urine Source CATH 10/15/17 03:00 Urine Color BROWN 10/15/17 03:00 Urine Clarity CLOUDY (CLEAR) 10/15/17 03:00 Urine pH 5.5 (4.6 - 8.0) 10/15/17 03:00 Ur Specific [place] 1.020 (1.005-1.030) 10/15/17 03:00 Urine Protein 100 mg/dL (NEGATIVE) H 10/15/17 03:00 Urine Glucose (UA) >=1000 mg/dL (NEGATIVE) H 10/15/17 03:00 Urine Ketones TRACE mg/dL (NEGATIVE) 10/15/17 03:00 Urine Blood LARGE (NEGATIVE) H 10/15/17 03:00 Urine Nitrate NEGATIVE (NEGATIVE) 10/15/17 03:00 Urine Bilirubin SMALL (NEGATIVE) H 10/15/17 03:00 Urine Ictotest NEGATIVE (NEGATIVE) 10/15/17 03:00 Urine Urobilinogen 0.2 E.U./dL (0.2 - 1.0) 10/15/17 03:00 Ur Leukocyte Esterase TRACE (NEGATIVE) H 10/15/17 03:00 Urine RBC >100 /hpf (0-5) H 10/15/17 03:00 Urine WBC >100 /hpf (0-5) H 10/15/17 03:00 Ur Epithelial Cells OCCASIONAL /lpf (FEW) 10/15/17 03:00 Urine Bacteria MODERATE /hpf (NONE SEEN) H 10/15/17 03:00 Urine Osmolality 749 mOsmol/kg 10/15/17 03:00 Ur Random Sodium 39 mmol/L 10/15/17 03:00 Urine Creatinine 136.0 mg/dl (39.0-259.0) 10/15/17 03:00 - Physical Exam Vitals and I&O: Vital Signs Temp 98.8 F 10/25/17 00:00 Pulse 107 10/25/17 00:00 Resp 18 10/25/17 00:00 BP 168/97 10/25/17 00:00 Pulse Ox 97 10/25/17 00:00 Intake & Output 10/24/17 10/24/17 10/25/17 06:59 18:59 06:59 Intake Total 100 350 150 Output Total 650 250 Balance -550 100 150 Weight (lbs) 77.111 kg 77.201 kg 77.111 kg Intake: Oral 100 350 150 Output: Urine 650 250 Other: # Bowel Movements 0 Stool Characteristics Soft Active Medications: Current Medications Acetaminophen (Tylenol) 650 mg PO Q6HR PRN PRN Reason: mild to moderate pain Stop: 12/11/17 19:27 Last Admin: 10/23/17 00:25 Dose: 650 mg Acetaminophen/Hydrocodone Bitart ([place] 5mg/325mg) 1 tab PO Q6H PRN PRN Reason: Pain (Moderate) Stop: 12/15/17 08:21 Last Admin: 10/22/17 21:26 Dose: 1 tab Allopurinol (Zyloprim) 100 mg PO DAILY [facility] Stop: 12/12/17 08:59 Last Admin: 10/24/17 09:45 Dose: 100 mg [place] Oil/[place] Balsam/Trypsin (Venelex) 1 appl TP DAILY [facility] Stop: 12/12/17 15:59 Last Admin: 10/24/17 09:52 Dose: 1 appl Clonazepam (Klonopin) 1 mg PO BID IMMANUEL PRN Reason: Protocol Stop: 12/15/17 08:59 Last Admin: 10/24/17 17:23 Dose: 1 mg Famotidine (Pepcid) 20 mg PO BID [facility] Stop: 12/12/17 08:59 Last Admin: 10/24/17 17:24 Dose: 20 mg Heparin Sodium (Porcine) (Heparin) 5,000 units SUBQ Q12HR IMMANUEL PRN Reason: Protocol Stop: 12/11/17 20:59 Last Admin: 10/24/17 21:48 Dose: 5,000 units Levofloxacin (Levaquin Pb) 500 mg in 100 mls @ 100 mls/hr IV Q24HR [facility] Stop: 12/14/17 05:59 Last Admin: 10/24/17 06:11 Dose: 100 mls/hr Insulin Aspart (Novolog Insulin Sliding Scale) 0 units SUBQ ACHS IMMANUEL PRN Reason: Protocol Stop: 12/11/17 20:59 Last Admin: 10/24/17 21:07 Dose: Not Given Insulin Detemir (Levemir Insulin) 18 units SUBQ DAILY [facility]EL PRN Reason: Protocol Stop: 12/23/17 08:13 Last Admin: 10/24/17 09:47 Dose: 18 units Lorazepam (Ativan) 0.5 mg PO Q6HR PRN; Protocol PRN Reason: agitation Stop: 12/11/17 19:27 Last Admin: 10/24/17 00:09 Dose: 0.5 mg Magnesium Hydroxide (Milk Of Magnesia) 30 ml PO HS PRN PRN Reason: Constipation Stop: 12/11/17 19:27 Metoprolol Succinate (Toprol Xl) 25 mg PO BID I[facility]UEL Stop: 12/12/17 16:59 Last Admin: 10/24/17 17:22 Dose: 25 mg Miscellaneous (Clinical Monitoring) 1 ea MC PRN PRN PRN Reason: RENAL Stop: 12/12/17 10:33 Olanzapine (Zyprexa Zydis) 12.5 mg PO BID IMMANUEL PRN Reason: Protocol Stop: 12/17/17 12:28 Last Admin: 10/24/17 17:24 Dose: 12.5 mg Zolpidem Tartrate (Ambien) 5 mg PO HS PRN PRN Reason: insomnia Stop: 12/11/17 19:27 Last Admin: 10/18/17 20:36 Dose: 5 mg General: No acute distress HEENT: Atraumatic, PERRLA Neck: Supple Cardiovascular: Regular rate, Normal S1, Normal S2 Lungs: Clear to auscultation Abdomen: Bowel sounds, Soft Extremities: no Clubbing, no Cyanosis, no Edema Neurological: Sensation intact Skin: no Rash Psych/Mental Status: Mood NL - Procedures Procedures: Procedures Procedure Code Date JEWEL MUSC/FASCIA 20 SQ CM/< 41119 10/12/17 EXCISION OF RIGHT HIP MUSCLE, OPEN APPROACH [id number] 10/12/17 Assessment/Plan - Assessment Assessment: Sacral stage III decubitus ulcer, infected. Diabetes mellitus type Depression. psychosis. Hematuria. hypernatremia resolved prerenal azotemia improved. hyperglycemia ... stable depression/anxiety gout ... on allopurinol. check uric acid level dementia schizophrenia S/P wound debridement of sacral decubitus ... continue wound care treatment. UTI KEN on CKD ... resolved. hyperkalemia resolved. discharge planning. - Plan Plan: will order cmp this AM renal consult -- Dr. Sharp sacral decubitus ... will order Gen Surgical consult -- Dr. Greene for possible wound debridement Gout ... continue allopurinol 100mg PO daily continue wound vac. continue hydrocodone PO for pain control. discharge planning/placement Nutritional Asmnt/Malnutr-PDOC - Dietary Evaluation Malnutrition Findings (Please click <Entered> for more info): Nutritional Asmnt/Malnutrition Start: 10/14/17 17: 10 Text: Status: Complete Freq: Document 10/14/17 17:13 [facility] (Rec: 10/14/17 17:25 HEN [email or web address]) Nutritional Asmnt/Malnutrition Patient General Information Nutritional Screening High Risk Consult Diagnosis pressure ulcer, hyperglycemia, dehydration Pertinent Medical Hx/Surgical Hx DM, dementia, depression, psychosis, schizophrenia, chronic renal insuff Subjective Information Consult received for unstageble pressure ulcer on , high BG on 10/12. Per records, PO intake 50-75%. Pt was on NPO today for surgery- excisional debridement, application of wound VAC Current Diet Order/ Nutrition Support pureed, CCHO 60gm Pertinent Medications novolog Pertinent Labs 10/14 Na 152, K 4.6, BUN 56, Cr 1.8, Glucose 262, POC 236-246 , Mg 2.9 Nutritional Hx/Data Height 1.8 m Height (Calculated Centimeters) 180.3 Current Weight (lbs) 70.76 kg Weight (Calculated Kilograms) 70.8 Weight (Calculated Grams) 92312.4 [place] Body Weight 172 % [place] Body Weight 91 Body Mass Index (BMI) 21.7 Weight Status Approriate GI Symptoms GI Symptoms None Last BM 10/13 Difficult in: None Skin Integrity/Comment: scar to right upper back, decubitus ulcer to buttocks Current %PO Fair (50-74%) Estimated Nutritional Goals BEE in Kcals: Using Current wt Calories/Kcals/Kg 27-32 Kcals Calculated 4902-0533 Protein: Using Current wt Protein g/k-1.2 Protein Calculated 71-85 Fluid: ml 1916-2129ml (1ml/kcal) Nutritional Problem 2. Problem Problem altered nutrition related lab values Etiology hx of DM Signs/Symptoms: Glucose 262, POC 236-246 1. Problem Problem increased nutrition needs ( calorie and protein) Etiology increased metabolic demand for wound healing Signs/Symptoms: decubitus ulcer and surgery Intervention/Recommendation Comments 1. Continue with current diet as ordered. If PO intake low, will consider nutrition supplements 2. MD to consider vit C and zinc for wound healing 3. Monitor PO intake, wt, labs and skin integrity 4. F/U as moderate risk in 3-5 days, 10/17-3/, PO check 10/17 Expected Outcomes/Goals Expected Outcomes/Goals 1. PO intake to meet at least 75% of nutritional needs. 2. Wt stability, skin to remain intact, labs to approach WNL.
[2017-10-25] MEDS: Levofloxacin 500mg/100mL 500 MG/100 ML BAG IV SCH (05:45)
[2017-10-25] MEDS: INSULIN ASPART SLIDING SCALE 100 UNITS/ML UNIT SUBQ SCH ×4 (07:49→22:12)
[2017-10-25] MEDS: OLANZapine 5 mg Oral Disintegrating Tab PO SCH ×2 (09:43→17:16)
[2017-10-25] MEDS: Venelex 60gm Tube TP SCH (09:45)
[2017-10-25] MEDS: Insulin Detemir 100 units/mL 10mL Vial SUBQ SCH (09:51)
--- NOTE | 2017-10-25 11:25 | Infectious Disease Prog Note ---
Infectious Disease Subjective - Review of Systems Service Date: 10/25/17 Subjective: no new change. Infectious Disease Objective - Results Result Diagrams: 10/16/17 09:11 10/22/17 05:05 Recent Labs: Laboratory Last Values WBC 6.7 Th/cmm (4.8-10.8) D 10/16/17 09:11 RBC 4.73 Mil/cmm (3.80-5.80) 10/16/17 09:11 Hgb 13.7 gm/dL (12-16) 10/16/17 09:11 Hct 42.8 % (41.0-60) 10/16/17 09:11 MCV 90.5 fl (80-99) 10/16/17 09:11 MCH 28.9 pg (27.0-31.0) 10/16/17 09:11 MCHC Differential 32.0 pg (28.0-36.0) 10/16/17 09:11 RDW 16.2 % (11.5-20.0) 10/16/17 09:11 Plt Count 162 Th/cmm (150-400) 10/16/17 09:11 MPV 9.7 fl 10/16/17 09:11 Neutrophils % 72.2 % (40.0-80.0) 10/16/17 09:11 Lymphocytes % 19.2 % (20.0-50.0) L 10/16/17 09:11 Monocytes % 5.9 % (2.0-10.0) 10/16/17 09:11 Eosinophils % 1.5 % (0.0-5.0) 10/16/17 09:11 Basophils % 1.2 % (0.0-2.0) 10/16/17 09:11 Eos Smear Source URINE 10/15/17 03:00 Eos Smear Total Cells FEW EOSINOPHILS SEEN (NONE SEEN) 10/15/17 03:00 PT 10.5 SECONDS (9.5-11.5) 10/14/17 06:00 INR 1.01 (0.5-1.4) 10/14/17 06:00 PTT (Actin FS) 25.3 SECONDS (26.0-38.0) L 10/14/17 06:00 Sodium 143 mEq/L (136-145) 10/22/17 05:05 Potassium 3.9 mEq/L (3.5-5.1) 10/22/17 05:05 Chloride 112 mEq/L (98-107) H 10/22/17 05:05 Carbon Dioxide 24.1 mEq/L (21.0-31.0) 10/22/17 05:05 Anion Gap 10.8 (7.0-16.0) 10/22/17 05:05 BUN 16 mg/dL (7-25) 10/22/17 05:05 Creatinine 1.0 mg/dL (0.7-1.3) 10/22/17 05:05 Est GFR ( Amer) TNP 10/22/17 05:05 Est GFR (Non-Af Amer) TNP 10/22/17 05:05 BUN/Creatinine Ratio 16.0 10/22/17 05:05 Glucose 194 mg/dL (70-105) H 10/22/17 05:05 POC Glucose 99 MG/DL (70 - 105) 10/25/17 06:34 Hemoglobin A1c % 10.5 % (4.0-6.0) H 10/14/17 05:26 Uric Acid 5.6 mg/dL (4.4-7.6) 10/20/17 09:10 Calcium 8.8 mg/dL (8.6-10.3) 10/22/17 05:05 Phosphorus 4.1 mg/dL (2.5-5.0) 10/14/17 06:00 Magnesium 2.0 mg/dL (1.9-2.7) 10/22/17 05:05 Total Bilirubin 0.6 mg/dL (0.3-1.0) 10/16/17 09:11 AST 17 U/L (13-39) 10/16/17 09:11 ALT 13 U/L (7-52) 10/16/17 09:11 Alkaline Phosphatase 81 U/L (34-104) 10/16/17 09:11 Total Protein 6.4 gm/dL (6.0-8.3) 10/16/17 09:11 Albumin 3.0 gm/dL (4.2-5.5) L 10/16/17 09:11 Globulin 3.4 gm/dL 10/16/17 09:11 Albumin/Globulin Ratio 0.9 (1.0-1.8) L 10/16/17 09:11 TSH 0.28 uIU/ml (0.34-5.60) L 10/14/17 06:00 Urine Source CATH 10/15/17 03:00 Urine Color BROWN 10/15/17 03:00 Urine Clarity CLOUDY (CLEAR) 10/15/17 03:00 Urine pH 5.5 (4.6 - 8.0) 10/15/17 03:00 Ur Specific [place] 1.020 (1.005-1.030) 10/15/17 03:00 Urine Protein 100 mg/dL (NEGATIVE) H 10/15/17 03:00 Urine Glucose (UA) >=1000 mg/dL (NEGATIVE) H 10/15/17 03:00 Urine Ketones TRACE mg/dL (NEGATIVE) 10/15/17 03:00 Urine Blood LARGE (NEGATIVE) H 10/15/17 03:00 Urine Nitrate NEGATIVE (NEGATIVE) 10/15/17 03:00 Urine Bilirubin SMALL (NEGATIVE) H 10/15/17 03:00 Urine Ictotest NEGATIVE (NEGATIVE) 10/15/17 03:00 Urine Urobilinogen 0.2 E.U./dL (0.2 - 1.0) 10/15/17 03:00 Ur Leukocyte Esterase TRACE (NEGATIVE) H 10/15/17 03:00 Urine RBC >100 /hpf (0-5) H 10/15/17 03:00 Urine WBC >100 /hpf (0-5) H 10/15/17 03:00 Ur Epithelial Cells OCCASIONAL /lpf (FEW) 10/15/17 03:00 Urine Bacteria MODERATE /hpf (NONE SEEN) H 10/15/17 03:00 Urine Osmolality 749 mOsmol/kg 10/15/17 03:00 Ur Random Sodium 39 mmol/L 10/15/17 03:00 Urine Creatinine 136.0 mg/dl (39.0-259.0) 10/15/17 03:00 - Physical Exam Vitals and I&O: Vital Signs Temp 98.8 F 10/25/17 00:00 Pulse 98 10/25/17 09:38 Resp 18 10/25/17 00:00 BP 141/83 10/25/17 09:38 Pulse Ox 97 10/25/17 00:00 Intake & Output 10/24/17 10/25/17 10/25/17 18:59 06:59 18:59 Intake Total 450 150 Output Total 250 Balance 200 150 Weight (lbs) 77.201 kg 77.111 kg Intake: Intake, IV Amount 100 Levofloxacin 500mg/100mL 100 500 mg In 100 ml @ 100 mls/hr IV Q24HR [facility] Rx#: [id number] Oral 350 150 Output: Urine 250 Other: # Bowel Movements 0 Stool Characteristics Soft Active Medications: Current Medications Acetaminophen (Tylenol) 650 mg PO Q6HR PRN PRN Reason: mild to moderate pain Stop: 12/11/17 19:27 Last Admin: 10/23/17 00:25 Dose: 650 mg Acetaminophen/Hydrocodone Bitart ([place] 5mg/325mg) 1 tab PO Q6H PRN PRN Reason: Pain (Moderate) Stop: 12/15/17 08:21 Last Admin: 10/22/17 21:26 Dose: 1 tab Allopurinol (Zyloprim) 100 mg PO DAILY [facility] Stop: 12/12/17 08:59 Last Admin: 10/25/17 09:43 Dose: 100 mg [place] Oil/[place] Balsam/Trypsin (Venelex) 1 appl TP DAILY [facility] Stop: 12/12/17 15:59 Last Admin: 10/25/17 09:45 Dose: 1 appl Clonazepam (Klonopin) 1 mg PO BID [facility] PRN Reason: Protocol Stop: 12/15/17 08:59 Last Admin: 10/25/17 09:43 Dose: 1 mg Famotidine (Pepcid) 20 mg PO BID [facility] Stop: 12/12/17 08:59 Last Admin: 10/25/17 09:43 Dose: 20 mg Heparin Sodium (Porcine) (Heparin) 5,000 units SUBQ Q12HR [facility] PRN Reason: Protocol Stop: 12/11/17 20:59 Last Admin: 10/25/17 09:38 Dose: 5,000 units Levofloxacin (Levaquin Pb) 500 mg in 100 mls @ 100 mls/hr IV Q24HR [facility] Stop: 12/14/17 05:59 Last Admin: 10/25/17 05:45 Dose: 100 mls/hr Insulin Aspart (Novolog Insulin Sliding Scale) 0 units SUBQ ACHS [facility] PRN Reason: Protocol Stop: 12/11/17 20:59 Last Admin: 10/25/17 07:49 Dose: Not Given Insulin Detemir (Levemir Insulin) 18 units SUBQ DAILY [facility] PRN Reason: Protocol Stop: 12/23/17 08:13 Last Admin: 10/25/17 09:51 Dose: Not Given Lorazepam (Ativan) 0.5 mg PO Q6HR PRN; Protocol PRN Reason: agitation Stop: 12/11/17 19:27 Last Admin: 10/24/17 00:09 Dose: 0.5 mg Magnesium Hydroxide (Milk Of Magnesia) 30 ml PO HS PRN PRN Reason: Constipation Stop: 12/11/17 19:27 Metoprolol Succinate (Toprol Xl) 25 mg PO BID [facility] Stop: 12/12/17 16:59 Last Admin: 10/25/17 09:38 Dose: 25 mg Miscellaneous (Clinical Monitoring) 1 ea MC PRN PRN PRN Reason: RENAL Stop: 12/12/17 10:33 Olanzapine (Zyprexa Zydis) 12.5 mg PO BID [facility]MM[facility]EL PRN Reason: Protocol Stop: 12/17/17 12:28 Last Admin: 10/25/17 09:43 Dose: 12.5 mg Zolpidem Tartrate (Ambien) 5 mg PO HS PRN PRN Reason: insomnia Stop: 12/11/17 19:27 Last Admin: 10/18/17 20:36 Dose: 5 mg General: no acute distress, well developed, well nourished HEENT: atraumatic, normocephalic, PERRLA Neck: supple, no thyromegaly Cardiovascular: S1S2, regular Lungs: clear to auscultation bilaterally, clear to percussion Abdomen: soft, no tender, no distended, no rebound Extremities: no cyanosis, no clubbing, no edema Neurological: awake, alert, oriented Skin: other (sacral decubitus with wound vac) - Procedures Procedures: Procedures Procedure Code Date JEWEL MUSC/FASCIA 20 SQ CM/< 63866 10/12/17 EXCISION OF RIGHT HIP MUSCLE, OPEN APPROACH [id number] 10/12/17 Infectious Disease Assmt/Plan - Assessment Assessment: 1. Sacral stage III decubitus ulcer, infected. 2. Status post I&D. 3. Diabetes mellitus type . 4. Dementia. 5. Depression. 6. psychosis. 7. Schizophrenia. 8. Hematuria. - Plan Plan: CPM. wound care. Nutritional Asmnt/Malnutr-PDOC - Dietary Evaluation Malnutrition Findings (Please click <Entered> for more info): Nutritional Asmnt/Malnutrition Start: 10/14/17 17: 10 Text: Status: Complete Freq: Document 10/14/17 17:13 GREY (Rec: 10/14/17 17:25 DEMI [email or web address]) Nutritional Asmnt/Malnutrition Patient General Information Nutritional Screening High Risk Consult Diagnosis pressure ulcer, hyperglycemia, dehydration Pertinent Medical Hx/Surgical Hx DM, dementia, depression, psychosis, schizophrenia, chronic renal insuff Subjective Information Consult received for unstageble pressure ulcer on , high BG on 10/12. Per records, PO intake 50-75%. Pt was on NPO today for surgery- excisional debridement, application of wound VAC Current Diet Order/ Nutrition Support pureed, CCHO 60gm Pertinent Medications novolog Pertinent Labs 10/14 Na 152, K 4.6, BUN 56, Cr 1.8, Glucose 262, POC 236-246 , Mg 2.9 Nutritional Hx/Data Height 1.8 m Height (Calculated Centimeters) 180.3 Current Weight (lbs) 70.76 kg Weight (Calculated Kilograms) 70.8 Weight (Calculated Grams) 81553.4 [place] Body Weight 172 % [place] Body Weight 91 Body Mass Index (BMI) 21.7 Weight Status Approriate GI Symptoms GI Symptoms None Last BM 10/13 Difficult in: None Skin Integrity/Comment: scar to right upper back, decubitus ulcer to buttocks Current %PO Fair (50-74%) Estimated Nutritional Goals BEE in Kcals: Using Current wt Calories/Kcals/Kg 27-32 Kcals Calculated 7558-0126 Protein: Using Current wt Protein g/k-1.2 Protein Calculated 71-85 Fluid: ml 1917-2130ml (1ml/kcal) Nutritional Problem 2. Problem Problem altered nutrition related lab values Etiology hx of DM Signs/Symptoms: Glucose 262, POC 236-246 1. Problem Problem increased nutrition needs ( calorie and protein) Etiology increased metabolic demand for wound healing Signs/Symptoms: decubitus ulcer and surgery Intervention/Recommendation Comments 1. Continue with current diet as ordered. If PO intake low, will consider nutrition supplements 2. MD to consider vit C and zinc for wound healing 3. Monitor PO intake, wt, labs and skin integrity 4. F/U as moderate risk in 3-5 days, 3/2-3/4, PO check /2 Expected Outcomes/Goals Expected Outcomes/Goals 1. PO intake to meet at least 75% of nutritional needs. 2. Wt stability, skin to remain intact, labs to approach WNL.
--- NOTE | 2017-10-26 05:31 | General Progress Note ---
Subjective - Review of Systems Service Date: 10/26/17 Subjective: Patient is awake and alert. no acute distress. patient eating fine. Irritable. Patient blood sugar improving. will increase levemir to 18u Daily. Objective - Results Result Diagrams: 10/16/17 09:11 10/22/17 05:05 Recent Labs: Laboratory Last Values WBC 6.7 Th/cmm (4.8-10.8) D 10/16/17 09:11 RBC 4.73 Mil/cmm (3.80-5.80) 10/16/17 09:11 Hgb 13.7 gm/dL (12-16) 10/16/17 09:11 Hct 42.8 % (41.0-60) 10/16/17 09:11 MCV 90.5 fl (80-99) 10/16/17 09:11 MCH 28.9 pg (27.0-31.0) 10/16/17 09:11 MCHC Differential 32.0 pg (28.0-36.0) 10/16/17 09:11 RDW 16.2 % (11.5-20.0) 10/16/17 09:11 Plt Count 162 Th/cmm (150-400) 10/16/17 09:11 MPV 9.7 fl 10/16/17 09:11 Neutrophils % 72.2 % (40.0-80.0) 10/16/17 09:11 Lymphocytes % 19.2 % (20.0-50.0) L 10/16/17 09:11 Monocytes % 5.9 % (2.0-10.0) 10/16/17 09:11 Eosinophils % 1.5 % (0.0-5.0) 10/16/17 09:11 Basophils % 1.2 % (0.0-2.0) 10/16/17 09:11 Eos Smear Source URINE 10/15/17 03:00 Eos Smear Total Cells FEW EOSINOPHILS SEEN (NONE SEEN) 10/15/17 03:00 PT 10.5 SECONDS (9.5-11.5) 10/14/17 06:00 INR 1.01 (0.5-1.4) 10/14/17 06:00 PTT (Actin FS) 25.3 SECONDS (26.0-38.0) L 10/14/17 06:00 Sodium 143 mEq/L (136-145) 10/22/17 05:05 Potassium 3.9 mEq/L (3.5-5.1) 10/22/17 05:05 Chloride 112 mEq/L (98-107) H 10/22/17 05:05 Carbon Dioxide 24.1 mEq/L (21.0-31.0) 10/22/17 05:05 Anion Gap 10.8 (7.0-16.0) 10/22/17 05:05 BUN 16 mg/dL (7-25) 10/22/17 05:05 Creatinine 1.0 mg/dL (0.7-1.3) 10/22/17 05:05 Est GFR ( Amer) TNP 10/22/17 05:05 Est GFR (Non-Af Amer) TNP 10/22/17 05:05 BUN/Creatinine Ratio 16.0 10/22/17 05:05 Glucose 194 mg/dL (70-105) H 10/22/17 05:05 POC Glucose 119 MG/DL (70 - 105) H 10/26/17 01:40 Hemoglobin A1c % 10.5 % (4.0-6.0) H 10/14/17 05:26 Uric Acid 5.6 mg/dL (4.4-7.6) 10/20/17 09:10 Calcium 8.8 mg/dL (8.6-10.3) 10/22/17 05:05 Phosphorus 4.1 mg/dL (2.5-5.0) 10/14/17 06:00 Magnesium 2.0 mg/dL (1.9-2.7) 10/22/17 05:05 Total Bilirubin 0.6 mg/dL (0.3-1.0) 10/16/17 09:11 AST 17 U/L (13-39) 10/16/17 09:11 ALT 13 U/L (7-52) 10/16/17 09:11 Alkaline Phosphatase 81 U/L (34-104) 10/16/17 09:11 Total Protein 6.4 gm/dL (6.0-8.3) 10/16/17 09:11 Albumin 3.0 gm/dL (4.2-5.5) L 10/16/17 09:11 Globulin 3.4 gm/dL 10/16/17 09:11 Albumin/Globulin Ratio 0.9 (1.0-1.8) L 10/16/17 09:11 TSH 0.28 uIU/ml (0.34-5.60) L 10/14/17 06:00 Urine Source CATH 10/15/17 03:00 Urine Color BROWN 10/15/17 03:00 Urine Clarity CLOUDY (CLEAR) 10/15/17 03:00 Urine pH 5.5 (4.6 - 8.0) 10/15/17 03:00 Ur Specific [place] 1.020 (1.005-1.030) 10/15/17 03:00 Urine Protein 100 mg/dL (NEGATIVE) H 10/15/17 03:00 Urine Glucose (UA) >=1000 mg/dL (NEGATIVE) H 10/15/17 03:00 Urine Ketones TRACE mg/dL (NEGATIVE) 10/15/17 03:00 Urine Blood LARGE (NEGATIVE) H 10/15/17 03:00 Urine Nitrate NEGATIVE (NEGATIVE) 10/15/17 03:00 Urine Bilirubin SMALL (NEGATIVE) H 10/15/17 03:00 Urine Ictotest NEGATIVE (NEGATIVE) 10/15/17 03:00 Urine Urobilinogen 0.2 E.U./dL (0.2 - 1.0) 10/15/17 03:00 Ur Leukocyte Esterase TRACE (NEGATIVE) H 10/15/17 03:00 Urine RBC >100 /hpf (0-5) H 10/15/17 03:00 Urine WBC >100 /hpf (0-5) H 10/15/17 03:00 Ur Epithelial Cells OCCASIONAL /lpf (FEW) 10/15/17 03:00 Urine Bacteria MODERATE /hpf (NONE SEEN) H 10/15/17 03:00 Urine Osmolality 749 mOsmol/kg 10/15/17 03:00 Ur Random Sodium 39 mmol/L 10/15/17 03:00 Urine Creatinine 136.0 mg/dl (39.0-259.0) 10/15/17 03:00 - Physical Exam Vitals and I&O: Vital Signs Temp 98.1 F 10/26/17 05:00 Pulse 105 10/26/17 05:00 Resp 18 10/26/17 05:00 BP 160/70 10/26/17 05:00 Pulse Ox 100 10/26/17 05:00 Intake & Output 10/25/17 10/25/17 10/26/17 06:59 18:59 07:59 Intake Total 150 350 Output Total 230 Balance 150 120 Weight (lbs) 77.111 kg 77.156 kg Intake: Oral 150 350 Output: Urine 230 Other: # Bowel Movements 0 Stool Characteristics Soft Active Medications: Current Medications Acetaminophen (Tylenol) 650 mg PO Q6HR PRN PRN Reason: mild to moderate pain Stop: 12/11/17 19:27 Last Admin: 10/23/17 00:25 Dose: 650 mg Acetaminophen/Hydrocodone Bitart ([place] 5mg/325mg) 1 tab PO Q6H PRN PRN Reason: Pain (Moderate) Stop: 12/15/17 08:21 Last Admin: 10/22/17 21:26 Dose: 1 tab Allopurinol (Zyloprim) 100 mg PO DAILY [facility] Stop: 12/12/17 08:59 Last Admin: 10/25/17 09:43 Dose: 100 mg [place] Oil/[place] Balsam/Trypsin (Venelex) 1 appl TP DAILY [facility] Stop: 12/12/17 15:59 Last Admin: 10/25/17 09:45 Dose: 1 appl Clonazepam (Klonopin) 1 mg PO BID [facility] PRN Reason: Protocol Stop: 12/15/17 08:59 Last Admin: 10/25/17 17:15 Dose: 1 mg Famotidine (Pepcid) 20 mg PO BID [facility] Stop: 12/12/17 08:59 Last Admin: 10/25/17 17:15 Dose: 20 mg Heparin Sodium (Porcine) (Heparin) 5,000 units SUBQ Q12HR [facility] PRN Reason: Protocol Stop: 12/11/17 20:59 Last Admin: 10/25/17 22:12 Dose: 5,000 units Levofloxacin (Levaquin Pb) 500 mg in 100 mls @ 100 mls/hr IV Q24HR [facility] Stop: 12/14/17 05:59 Last Admin: 10/25/17 05:45 Dose: 100 mls/hr Insulin Aspart (Novolog Insulin Sliding Scale) 0 units SUBQ ACHS [facility] PRN Reason: Protocol Stop: 12/11/17 20:59 Last Admin: 10/25/17 22:12 Dose: 4 units Insulin Detemir (Levemir Insulin) 18 units SUBQ DAILY [facility] PRN Reason: Protocol Stop: 12/23/17 08:13 Last Admin: 10/25/17 09:51 Dose: Not Given Lorazepam (Ativan) 0.5 mg PO Q6HR PRN; Protocol PRN Reason: agitation Stop: 12/11/17 19:27 Last Admin: 10/24/17 00:09 Dose: 0.5 mg Magnesium Hydroxide (Milk Of Magnesia) 30 ml PO HS PRN PRN Reason: Constipation Stop: 12/11/17 19:27 Metoprolol Succinate (Toprol Xl) 25 mg PO BID [facility] Stop: 12/12/17 16:59 Last Admin: 10/25/17 17:15 Dose: 25 mg Miscellaneous (Clinical Monitoring) 1 ea MC PRN PRN PRN Reason: RENAL Stop: 12/12/17 10:33 Olanzapine (Zyprexa Zydis) 12.5 mg PO BID [facility]EL PRN Reason: Protocol Stop: 12/17/17 12:28 Last Admin: 10/25/17 17:16 Dose: 12.5 mg Zolpidem Tartrate (Ambien) 5 mg PO HS PRN PRN Reason: insomnia Stop: 12/11/17 19:27 Last Admin: 10/18/17 20:36 Dose: 5 mg General: No acute distress HEENT: Atraumatic, PERRLA Neck: Supple Cardiovascular: Regular rate, Normal S1, Normal S2 Lungs: Clear to auscultation Abdomen: Bowel sounds, Soft Extremities: no Clubbing, no Cyanosis, no Edema Neurological: Sensation intact Skin: no Rash Psych/Mental Status: Mood NL - Procedures Procedures: Procedures Procedure Code Date JEWEL MUSC/FASCIA 20 SQ CM/< 13656 10/12/17 EXCISION OF RIGHT HIP MUSCLE, OPEN APPROACH [id number] 10/12/17 Assessment/Plan - Assessment Assessment: Sacral stage III decubitus ulcer, infected. Diabetes mellitus type Depression. psychosis. Hematuria. hypernatremia resolved prerenal azotemia improved. hyperglycemia ... stable depression/anxiety gout ... on allopurinol. check uric acid level dementia schizophrenia S/P wound debridement of sacral decubitus ... continue wound care treatment. UTI KEN on CKD ... resolved. hyperkalemia resolved. discharge planning. - Plan Plan: will order cmp this AM renal consult -- Dr. Sharp sacral decubitus ... will order Gen Surgical consult -- Dr. Greene for possible wound debridement Gout ... continue allopurinol 100mg PO daily continue wound vac. continue hydrocodone PO for pain control. discharge planning/placement Nutritional Asmnt/Malnutr-PDOC - Dietary Evaluation Malnutrition Findings (Please click <Entered> for more info): Nutritional Asmnt/Malnutrition Start: 10/14/17 17: 10 Text: Status: Complete Freq: Document 10/14/17 17:13 [facility] (Rec[facility] 10[facility]14/17 [email or web address] Nutritional Asmnt/Malnutrition Patient General Information Nutritional Screening High Risk Consult Diagnosis pressure ulcer, hyperglycemia, dehydration Pertinent Medical Hx/Surgical Hx DM, dementia, depression, psychosis, schizophrenia, chronic renal insuff Subjective Information Consult received for unstageble pressure ulcer on , high BG on 10/12. Per records, PO intake 50-75%. Pt was on NPO today for surgery- excisional debridement, application of wound VAC Current Diet Order/ Nutrition Support pureed, CCHO 60gm Pertinent Medications novolog Pertinent Labs 10/14 Na 152, K 4.6, BUN 56, Cr 1.8, Glucose 262, POC 236-246 , Mg 2.9 Nutritional Hx/Data Height 1.8 m Height (Calculated Centimeters) 180.3 Current Weight (lbs) 70.76 kg Weight (Calculated Kilograms) 70.8 Weight (Calculated Grams) 25495.4 [place] Body Weight 172 % [place] Body Weight 91 Body Mass Index (BMI) 21.7 Weight Status Approriate GI Symptoms GI Symptoms None Last BM 10/13 Difficult in: None Skin Integrity/Comment: scar to right upper back, decubitus ulcer to buttocks Current %PO Fair (50-74%) Estimated Nutritional Goals BEE in Kcals: Using Current wt Calories/Kcals/Kg 27-32 Kcals Calculated 5668-7000 Protein: Using Current wt Protein g/k-1.2 Protein Calculated 71-85 Fluid: ml 1916-213ml (1ml/kcal) Nutritional Problem 2. Problem Problem altered nutrition related lab values Etiology hx of DM Signs/Symptoms: Glucose 262, POC 236-246 1. Problem Problem increased nutrition needs ( calorie and protein) Etiology increased metabolic demand for wound healing Signs/Symptoms: decubitus ulcer and surgery Intervention/Recommendation Comments 1. Continue with current diet as ordered. If PO intake low, will consider nutrition supplements 2. MD to consider vit C and zinc for wound healing 3. Monitor PO intake, wt, labs and skin integrity 4. F/U as moderate risk in 3-5 days, 10/17-10/19, PO check 10/17 Expected Outcomes/Goals Expected Outcomes/Goals 1. PO intake to meet at least 75% of nutritional needs. 2. Wt stability, skin to remain intact, labs to approach WNL.
[2017-10-26] MEDS: Levofloxacin 500mg/100mL 500 MG/100 ML BAG IV SCH (05:39)
[2017-10-26] MEDS: OLANZapine 5 mg Oral Disintegrating Tab PO SCH ×2 (08:47→16:52)
[2017-10-26] MEDS: INSULIN ASPART SLIDING SCALE 100 UNITS/ML UNIT SUBQ SCH ×4 (08:48→21:24)
[2017-10-26] MEDS: Venelex 60gm Tube TP SCH (08:48)
[2017-10-26] MEDS: Insulin Detemir 100 units/mL 10mL Vial SUBQ SCH (08:49)
--- NOTE | 2017-10-26 23:27 | Infectious Disease Prog Note ---
Infectious Disease Subjective - Review of Systems Service Date: 10/26/17 Subjective: no new change. Infectious Disease Objective - Results Result Diagrams: 10/16/17 09:11 10/22/17 05:05 Recent Labs: Laboratory Last Values WBC 6.7 Th/cmm (4.8-10.8) D 10/16/17 09:11 RBC 4.73 Mil/cmm (3.80-5.80) 10/16/17 09:11 Hgb 13.7 gm/dL (12-16) 10/16/17 09:11 Hct 42.8 % (41.0-60) 10/16/17 09:11 MCV 90.5 fl (80-99) 10/16/17 09:11 MCH 28.9 pg (27.0-31.0) 10/16/17 09:11 MCHC Differential 32.0 pg (28.0-36.0) 10/16/17 09:11 RDW 16.2 % (11.5-20.0) 10/16/17 09:11 Plt Count 162 Th/cmm (150-400) 10/16/17 09:11 MPV 9.7 fl 10/16/17 09:11 Neutrophils % 72.2 % (40.0-80.0) 10/16/17 09:11 Lymphocytes % 19.2 % (20.0-50.0) L 10/16/17 09:11 Monocytes % 5.9 % (2.0-10.0) 10/16/17 09:11 Eosinophils % 1.5 % (0.0-5.0) 10/16/17 09:11 Basophils % 1.2 % (0.0-2.0) 10/16/17 09:11 Eos Smear Source URINE 10/15/17 03:00 Eos Smear Total Cells FEW EOSINOPHILS SEEN (NONE SEEN) 10/15/17 03:00 PT 10.5 SECONDS (9.5-11.5) 10/14/17 06:00 INR 1.01 (0.5-1.4) 10/14/17 06:00 PTT (Actin FS) 25.3 SECONDS (26.0-38.0) L 10/14/17 06:00 Sodium 143 mEq/L (136-145) 10/22/17 05:05 Potassium 3.9 mEq/L (3.5-5.1) 10/22/17 05:05 Chloride 112 mEq/L (98-107) H 10/22/17 05:05 Carbon Dioxide 24.1 mEq/L (21.0-31.0) 10/22/17 05:05 Anion Gap 10.8 (7.0-16.0) 10/22/17 05:05 BUN 16 mg/dL (7-25) 10/22/17 05:05 Creatinine 1.0 mg/dL (0.7-1.3) 10/22/17 05:05 Est GFR ( Amer) TNP 10/22/17 05:05 Est GFR (Non-Af Amer) TNP 10/22/17 05:05 BUN/Creatinine Ratio 16.0 10/22/17 05:05 Glucose 194 mg/dL (70-105) H 10/22/17 05:05 POC Glucose 154 MG/DL (70 - 105) H 10/26/17 20:42 Hemoglobin A1c % 10.5 % (4.0-6.0) H 10/14/17 05:26 Uric Acid 5.6 mg/dL (4.4-7.6) 10/20/17 09:10 Calcium 8.8 mg/dL (8.6-10.3) 10/22/17 05:05 Phosphorus 4.1 mg/dL (2.5-5.0) 10/14/17 06:00 Magnesium 2.0 mg/dL (1.9-2.7) 10/22/17 05:05 Total Bilirubin 0.6 mg/dL (0.3-1.0) 10/16/17 09:11 AST 17 U/L (13-39) 10/16/17 09:11 ALT 13 U/L (7-52) 10/16/17 09:11 Alkaline Phosphatase 81 U/L (34-104) 10/16/17 09:11 Total Protein 6.4 gm/dL (6.0-8.3) 10/16/17 09:11 Albumin 3.0 gm/dL (4.2-5.5) L 10/16/17 09:11 Globulin 3.4 gm/dL 10/16/17 09:11 Albumin/Globulin Ratio 0.9 (1.0-1.8) L 10/16/17 09:11 TSH 0.28 uIU/ml (0.34-5.60) L 10/14/17 06:00 Urine Source CATH 10/15/17 03:00 Urine Color BROWN 10/15/17 03:00 Urine Clarity CLOUDY (CLEAR) 10/15/17 03:00 Urine pH 5.5 (4.6 - 8.0) 10/15/17 03:00 Ur Specific [place] 1.020 (1.005-1.030) 10/15/17 03:00 Urine Protein 100 mg/dL (NEGATIVE) H 10/15/17 03:00 Urine Glucose (UA) >=1000 mg/dL (NEGATIVE) H 10/15/17 03:00 Urine Ketones TRACE mg/dL (NEGATIVE) 10/15/17 03:00 Urine Blood LARGE (NEGATIVE) H 10/15/17 03:00 Urine Nitrate NEGATIVE (NEGATIVE) 10/15/17 03:00 Urine Bilirubin SMALL (NEGATIVE) H 10/15/17 03:00 Urine Ictotest NEGATIVE (NEGATIVE) 10/15/17 03:00 Urine Urobilinogen 0.2 E.U./dL (0.2 - 1.0) 10/15/17 03:00 Ur Leukocyte Esterase TRACE (NEGATIVE) H 10/15/17 03:00 Urine RBC >100 /hpf (0-5) H 10/15/17 03:00 Urine WBC >100 /hpf (0-5) H 10/15/17 03:00 Ur Epithelial Cells OCCASIONAL /lpf (FEW) 10/15/17 03:00 Urine Bacteria MODERATE /hpf (NONE SEEN) H 10/15/17 03:00 Urine Osmolality 749 mOsmol/kg 10/15/17 03:00 Ur Random Sodium 39 mmol/L 10/15/17 03:00 Urine Creatinine 136.0 mg/dl (39.0-259.0) 10/15/17 03:00 - Physical Exam Vitals and I&O: Vital Signs Temp 98.9 F 10/26/17 21:00 Pulse 109 10/26/17 21:00 Resp 18 10/26/17 21:00 BP 139/81 10/26/17 21:00 Pulse Ox 97 10/26/17 21:00 Intake & Output 10/26/17 10/26/17 10/27/17 06:59 18:59 06:59 Intake Total 450 550 Output Total 200 Balance 250 550 Weight (lbs) 77.111 kg 77.111 kg Intake: Oral 450 550 Output: Urine 200 Other: # Voids 2 # Bowel Movements 0 Active Medications: Current Medications Acetaminophen (Tylenol) 650 mg PO Q6HR PRN PRN Reason: mild to moderate pain Stop: 12/11/17 19:27 Last Admin: 10/23/17 00:25 Dose: 650 mg Acetaminophen/Hydrocodone Bitart ([place] 5mg/325mg) 1 tab PO Q6H PRN PRN Reason: Pain (Moderate) Stop: 12/15/17 08:21 Last Admin: 10/22/17 21:26 Dose: 1 tab Allopurinol (Zyloprim) 100 mg PO DAILY [facility] Stop: 12/12/17 08:59 Last Admin: 10/26/17 08:47 Dose: 100 mg [place] Oil/[place] Balsam/Trypsin (Venelex) 1 appl TP DAILY [facility] Stop: 12/12/17 15:59 Last Admin: 10/26/17 08:48 Dose: 1 appl Clonazepam (Klonopin) 1 mg PO BID [facility] PRN Reason: Protocol Stop: 12/15/17 08:59 Last Admin: 10/26/17 16:54 Dose: 1 mg Famotidine (Pepcid) 20 mg PO BID [facility] Stop: 12/12/17 08:59 Last Admin: 10/26/17 16:54 Dose: 20 mg Heparin Sodium (Porcine) (Heparin) 5,000 units SUBQ Q12HR [facility] PRN Reason: Protocol Stop: 12/11/17 20:59 Last Admin: 10/26/17 21:25 Dose: 5,000 units Levofloxacin (Levaquin Pb) 500 mg in 100 mls @ 100 mls/hr IV Q24HR [facility] Stop: 12/14/17 05:59 Last Admin: 10/26/17 05:39 Dose: 100 mls/hr Insulin Aspart (Novolog Insulin Sliding Scale) 0 units SUBQ ACHS [facility] PRN Reason: Protocol Stop: 12/11/17 20:59 Last Admin: 10/26/17 21:24 Dose: 2 units Insulin Detemir (Levemir Insulin) 18 units SUBQ DAILY [facility] PRN Reason: Protocol Stop: 12/23/17 08:13 Last Admin: 10/26/17 08:49 Dose: 18 units Lorazepam (Ativan) 0.5 mg PO Q6HR PRN; Protocol PRN Reason: agitation Stop: 12/11/17 19:27 Last Admin: 10/24/17 00:09 Dose: 0.5 mg Magnesium Hydroxide (Milk Of Magnesia) 30 ml PO HS PRN PRN Reason: Constipation Stop: 12/11/17 19:27 Metoprolol Succinate (Toprol Xl) 25 mg PO BID [facility] Stop: 12/12/17 16:59 Last Admin: 10/26/17 16:53 Dose: 25 mg Olanzapine (Zyprexa Zydis) 12.5 mg PO BID I[facility]EL PRN Reason: Protocol Stop: 12/17/17 12:28 Last Admin: 10/26/17 16:52 Dose: 12.5 mg Zolpidem Tartrate (Ambien) 5 mg PO HS PRN PRN Reason: insomnia Stop: 12/11/17 19:27 Last Admin: 10/26/17 21:25 Dose: 5 mg General: no acute distress, well developed, well nourished HEENT: atraumatic, normocephalic, PERRLA, EOMI Neck: supple, thyromegaly Cardiovascular: S1S2, regular Lungs: clear to auscultation bilaterally, clear to percussion Abdomen: soft, no tender, no distended Extremities: no cyanosis, no clubbing, no edema Neurological: awake, alert, oriented Skin: other (stage 4 sacral decubitus.) - Procedures Procedures: Procedures Procedure Code Date JEWEL MUSC/FASCIA 20 SQ CM/< 58067 10/12/17 EXCISION OF RIGHT HIP MUSCLE, OPEN APPROACH [id number] 10/12/17 Infectious Disease Assmt/Plan - Assessment Assessment: 1. Sacral stage III decubitus ulcer, infected. 2. Status post I&D. 3. Diabetes mellitus type . 4. Dementia. 5. Depression. 6. psychosis. 7. Schizophrenia. 8. Hematuria. - Plan Plan: CPM. wound care. Nutritional Asmnt/Malnutr-PDOC - Dietary Evaluation Malnutrition Findings (Please click <Entered> for more info): Nutritional Asmnt/Malnutrition Start: 10/14/17 17: 10 Text: Status: Complete Freq: Document 10/14/17 17:13 GREY (Rec: 10/14/17 17:25 [facility] [email or web address]) Nutritional Asmnt/Malnutrition Patient General Information Nutritional Screening High Risk Consult Diagnosis pressure ulcer, hyperglycemia, dehydration Pertinent Medical Hx/Surgical Hx DM, dementia, depression, psychosis, schizophrenia, chronic renal insuff Subjective Information Consult received for unstageble pressure ulcer on , high BG on 10/12. Per records, PO intake 50-75%. Pt was on NPO today for surgery- excisional debridement, application of wound VAC Current Diet Order/ Nutrition Support pureed, CCHO 60gm Pertinent Medications novolog Pertinent Labs 10/14 Na 152, K 4.6, BUN 56, Cr 1.8, Glucose 262, POC 236-246 , Mg 2.9 Nutritional Hx/Data Height 1.8 m Height (Calculated Centimeters) 180.3 Current Weight (lbs) 70.76 kg Weight (Calculated Kilograms) 70.8 Weight (Calculated Grams) 78271.4 [place] Body Weight 172 % [place] Body Weight 91 Body Mass Index (BMI) 21.7 Weight Status Approriate GI Symptoms GI Symptoms None Last BM 10/13 Difficult in: None Skin Integrity/Comment: scar to right upper back, decubitus ulcer to buttocks Current %PO Fair (50-74%) Estimated Nutritional Goals BEE in Kcals: Using Current wt Calories/Kcals/Kg 27-32 Kcals Calculated 0397-0067 Protein: Using Current wt Protein g/k-1.2 Protein Calculated 71-85 Fluid: ml 1917-2130ml (1ml/kcal) Nutritional Problem 2. Problem Problem altered nutrition related lab values Etiology hx of DM Signs/Symptoms: Glucose 262, POC 236-246 1. Problem Problem increased nutrition needs ( calorie and protein) Etiology increased metabolic demand for wound healing Signs/Symptoms: decubitus ulcer and surgery Intervention/Recommendation Comments 1. Continue with current diet as ordered. If PO intake low, will consider nutrition supplements 2. MD to consider vit C and zinc for wound healing 3. Monitor PO intake, wt, labs and skin integrity 4. F/U as moderate risk in 3-5 days, 32-3/4, PO check 10/17 Expected Outcomes/Goals Expected Outcomes/Goals 1. PO intake to meet at least 75% of nutritional needs. 2. Wt stability, skin to remain intact, labs to approach WNL.
[2017-10-27] MEDS: Levofloxacin 500mg/100mL 500 MG/100 ML BAG IV SCH (06:39)
[2017-10-27] MEDS: INSULIN ASPART SLIDING SCALE 100 UNITS/ML UNIT SUBQ SCH ×4 (06:40→22:39)
--- NOTE | 2017-10-27 08:12 | General Progress Note ---
Subjective - Review of Systems Service Date: 10/27/17 Subjective: Patient is awake and alert. no acute distress. patient eating fine. Irritable. Patient blood sugar stable. continue levemir 18u Daily. Objective - Results Result Diagrams: 10/16/17 09:11 10/22/17 05:05 Recent Labs: Laboratory Last Values WBC 6.7 Th/cmm (4.8-10.8) D 10/16/17 09:11 RBC 4.73 Mil/cmm (3.80-5.80) 10/16/17 09:11 Hgb 13.7 gm/dL (12-16) 10/16/17 09:11 Hct 42.8 % (41.0-60) 10/16/17 09:11 MCV 90.5 fl (80-99) 10/16/17 09:11 MCH 28.9 pg (27.0-31.0) 10/16/17 09:11 MCHC Differential 32.0 pg (28.0-36.0) 10/16/17 09:11 RDW 16.2 % (11.5-20.0) 10/16/17 09:11 Plt Count 162 Th/cmm (150-400) 10/16/17 09:11 MPV 9.7 fl 10/16/17 09:11 Neutrophils % 72.2 % (40.0-80.0) 10/16/17 09:11 Lymphocytes % 19.2 % (20.0-50.0) L 10/16/17 09:11 Monocytes % 5.9 % (2.0-10.0) 10/16/17 09:11 Eosinophils % 1.5 % (0.0-5.0) 10/16/17 09:11 Basophils % 1.2 % (0.0-2.0) 10/16/17 09:11 Eos Smear Source URINE 10/15/17 03:00 Eos Smear Total Cells FEW EOSINOPHILS SEEN (NONE SEEN) 10/15/17 03:00 PT 10.5 SECONDS (9.5-11.5) 10/14/17 06:00 INR 1.01 (0.5-1.4) 10/14/17 06:00 PTT (Actin FS) 25.3 SECONDS (26.0-38.0) L 10/14/17 06:00 Sodium 143 mEq/L (136-145) 10/22/17 05:05 Potassium 3.9 mEq/L (3.5-5.1) 10/22/17 05:05 Chloride 112 mEq/L (98-107) H 10/22/17 05:05 Carbon Dioxide 24.1 mEq/L (21.0-31.0) 10/22/17 05:05 Anion Gap 10.8 (7.0-16.0) 10/22/17 05:05 BUN 16 mg/dL (7-25) 10/22/17 05:05 Creatinine 1.0 mg/dL (0.7-1.3) 10/22/17 05:05 Est GFR ( Amer) TNP 10/22/17 05:05 Est GFR (Non-Af Amer) TNP 10/22/17 05:05 BUN/Creatinine Ratio 16.0 10/22/17 05:05 Glucose 194 mg/dL (70-105) H 10/22/17 05:05 POC Glucose 154 MG/DL (70 - 105) H 10/26/17 20:42 Hemoglobin A1c % 10.5 % (4.0-6.0) H 10/14/17 05:26 Uric Acid 5.6 mg/dL (4.4-7.6) 10/20/17 09:10 Calcium 8.8 mg/dL (8.6-10.3) 10/22/17 05:05 Phosphorus 4.1 mg/dL (2.5-5.0) 10/14/17 06:00 Magnesium 2.0 mg/dL (1.9-2.7) 10/22/17 05:05 Total Bilirubin 0.6 mg/dL (0.3-1.0) 10/16/17 09:11 AST 17 U/L (13-39) 10/16/17 09:11 ALT 13 U/L (7-52) 10/16/17 09:11 Alkaline Phosphatase 81 U/L (34-104) 10/16/17 09:11 Total Protein 6.4 gm/dL (6.0-8.3) 10/16/17 09:11 Albumin 3.0 gm/dL (4.2-5.5) L 10/16/17 09:11 Globulin 3.4 gm/dL 10/16/17 09:11 Albumin/Globulin Ratio 0.9 (1.0-1.8) L 10/16/17 09:11 TSH 0.28 uIU/ml (0.34-5.60) L 10/14/17 06:00 Urine Source CATH 10/15/17 03:00 Urine Color BROWN 10/15/17 03:00 Urine Clarity CLOUDY (CLEAR) 10/15/17 03:00 Urine pH 5.5 (4.6 - 8.0) 10/15/17 03:00 Ur Specific [place] 1.020 (1.005-1.030) 10/15/17 03:00 Urine Protein 100 mg/dL (NEGATIVE) H 10/15/17 03:00 Urine Glucose (UA) >=1000 mg/dL (NEGATIVE) H 10/15/17 03:00 Urine Ketones TRACE mg/dL (NEGATIVE) 10/15/17 03:00 Urine Blood LARGE (NEGATIVE) H 10/15/17 03:00 Urine Nitrate NEGATIVE (NEGATIVE) 10/15/17 03:00 Urine Bilirubin SMALL (NEGATIVE) H 10/15/17 03:00 Urine Ictotest NEGATIVE (NEGATIVE) 10/15/17 03:00 Urine Urobilinogen 0.2 E.U./dL (0.2 - 1.0) 10/15/17 03:00 Ur Leukocyte Esterase TRACE (NEGATIVE) H 10/15/17 03:00 Urine RBC >100 /hpf (0-5) H 10/15/17 03:00 Urine WBC >100 /hpf (0-5) H 10/15/17 03:00 Ur Epithelial Cells OCCASIONAL /lpf (FEW) 10/15/17 03:00 Urine Bacteria MODERATE /hpf (NONE SEEN) H 10/15/17 03:00 Urine Osmolality 749 mOsmol/kg 10/15/17 03:00 Ur Random Sodium 39 mmol/L 10/15/17 03:00 Urine Creatinine 136.0 mg/dl (39.0-259.0) 10/15/17 03:00 - Physical Exam Vitals and I&O: Vital Signs Temp 98.2 F 10/27/17 04:00 Pulse 104 10/27/17 04:00 Resp 20 10/27/17 04:00 BP 139/92 10/27/17 04:00 Pulse Ox 98 10/27/17 04:00 Intake & Output 10/26/17 10/27/17 10/27/17 18:59 06:59 18:59 Intake Total 450 550 Output Total 200 Balance 250 550 Weight (lbs) 77.111 kg 77.111 kg Intake: Oral 450 550 Output: Urine 200 Other: # Voids 2 # Bowel Movements 0 Active Medications: Current Medications Acetaminophen (Tylenol) 650 mg PO Q6HR PRN PRN Reason: mild to moderate pain Stop: 12/11/17 19:27 Last Admin: 10/23/17 00:25 Dose: 650 mg Acetaminophen/Hydrocodone Bitart ([place] 5mg/325mg) 1 tab PO Q6H PRN PRN Reason: Pain (Moderate) Stop: 12/15/17 08:21 Last Admin: 10/22/17 21:26 Dose: 1 tab Allopurinol (Zyloprim) 100 mg PO DAILY [facility] Stop: 12/12/17 08:59 Last Admin: 10/26/17 08:47 Dose: 100 mg [place] Oil/[place] Balsam/Trypsin (Venelex) 1 appl TP DAILY [facility] Stop: 12/12/17 15:59 Last Admin: 10/26/17 08:48 Dose: 1 appl Clonazepam (Klonopin) 1 mg PO BID [facility] PRN Reason: Protocol Stop: 12/15/17 08:59 Last Admin: 10/26/17 16:54 Dose: 1 mg Famotidine (Pepcid) 20 mg PO BID [facility] Stop: 12/12/17 08:59 Last Admin: 10/26/17 16:54 Dose: 20 mg Heparin Sodium (Porcine) (Heparin) 5,000 units SUBQ Q12HR [facility] PRN Reason: Protocol Stop: 12/11/17 20:59 Last Admin: 10/26/17 21:25 Dose: 5,000 units Levofloxacin (Levaquin Pb) 500 mg in 100 mls @ 100 mls/hr IV Q24HR [facility] Stop: 12/14/17 05:59 Last Admin: 10/27/17 06:39 Dose: 100 mls/hr Insulin Aspart (Novolog Insulin Sliding Scale) 0 units SUBQ ACHS [facility] PRN Reason: Protocol Stop: 12/11/17 20:59 Last Admin: 10/27/17 06:40 Dose: Not Given Insulin Detemir (Levemir Insulin) 18 units SUBQ DAILY [facility] PRN Reason: Protocol Stop: 12/23/17 08:13 Last Admin: 10/26/17 08:49 Dose: 18 units Lorazepam (Ativan) 0.5 mg PO Q6HR PRN; Protocol PRN Reason: agitation Stop: 12/11/17 19:27 Last Admin: 10/24/17 00:09 Dose: 0.5 mg Magnesium Hydroxide (Milk Of Magnesia) 30 ml PO HS PRN PRN Reason: Constipation Stop: 12/11/17 19:27 Metoprolol Succinate (Toprol Xl) 25 mg PO BID [facility] Stop: 12/12/17 16:59 Last Admin: 10/26/17 16:53 Dose: 25 mg Olanzapine (Zyprexa Zydis) 12.5 mg PO BID [facility] PRN Reason: Protocol Stop: 12/17/17 12:28 Last Admin: 10/26/17 16:52 Dose: 12.5 mg Zolpidem Tartrate (Ambien) 5 mg PO HS PRN PRN Reason: insomnia Stop: 12/11/17 19:27 Last Admin: 10/26/17 21:25 Dose: 5 mg General: No acute distress HEENT: Atraumatic, PERRLA Neck: Supple Cardiovascular: Regular rate, Normal S1, Normal S2 Lungs: Clear to auscultation Abdomen: Bowel sounds, Soft Extremities: no Clubbing, no Cyanosis, no Edema Neurological: Sensation intact Skin: no Rash Psych/Mental Status: Mood NL - Procedures Procedures: Procedures Procedure Code Date JEWEL MUSC/FASCIA 20 SQ CM/< 11159 10/12/17 EXCISION OF RIGHT HIP MUSCLE, OPEN APPROACH [id number] 10/12/17 Assessment/Plan - Assessment Assessment: Sacral stage III decubitus ulcer, infected. Diabetes mellitus type Depression. psychosis. Hematuria. hypernatremia resolved prerenal azotemia improved. hyperglycemia ... stable depression/anxiety gout ... on allopurinol. check uric acid level dementia schizophrenia S/P wound debridement of sacral decubitus ... continue wound care treatment. UTI KEN on CKD ... resolved. hyperkalemia resolved. discharge planning. - Plan Plan: will order cmp this AM renal consult -- Dr. Sharp sacral decubitus ... will order Gen Surgical consult -- Dr. Atil for possible wound debridement Gout ... continue allopurinol 100mg PO daily continue wound vac. continue hydrocodone PO for pain control. discharge planning/placement Nutritional Asmnt/Malnutr-PDOC - Dietary Evaluation Malnutrition Findings (Please click <Entered> for more info): Nutritional Asmnt/Malnutrition Start: 10/14/17 17: 10 Text: Status: Complete Freq: Document 10/14/17 17:13 GREY (Rec: 10/14/17 17:25 DEMI [email or web address]) Nutritional Asmnt/Malnutrition Patient General Information Nutritional Screening High Risk Consult Diagnosis pressure ulcer, hyperglycemia, dehydration Pertinent Medical Hx/Surgical Hx DM, dementia, depression, psychosis, schizophrenia, chronic renal insuff Subjective Information Consult received for unstageble pressure ulcer on , high BG on 10/12. Per records, PO intake 50-75%. Pt was on NPO today for surgery- excisional debridement, application of wound VAC Current Diet Order/ Nutrition Support pureed, CCHO 60gm Pertinent Medications novolog Pertinent Labs 10/14 Na 152, K 4.6, BUN 56, Cr 1.8, Glucose 262, POC 236-246 , Mg 2.9 Nutritional Hx/Data Height 1.8 m Height (Calculated Centimeters) 180.3 Current Weight (lbs) 70.76 kg Weight (Calculated Kilograms) 70.8 Weight (Calculated Grams) 04861.4 [place] Body Weight 172 % [place] Body Weight 91 Body Mass Index (BMI) 21.7 Weight Status Approriate GI Symptoms GI Symptoms None Last BM 10/13 Difficult in: None Skin Integrity/Comment: scar to right upper back, decubitus ulcer to buttocks Current %PO Fair (50-74%) Estimated Nutritional Goals BEE in Kcals: Using Current wt Calories/Kcals/Kg 27-32 Kcals Calculated 5379-3928 Protein: Using Current wt Protein g/k-1.2 Protein Calculated 71-85 Fluid: ml 1917-2130ml (1ml/kcal) Nutritional Problem 2. Problem Problem altered nutrition related lab values Etiology hx of DM Signs/Symptoms: Glucose 262, POC 236-246 1. Problem Problem increased nutrition needs ( calorie and protein) Etiology increased metabolic demand for wound healing Signs/Symptoms: decubitus ulcer and surgery Intervention/Recommendation Comments 1. Continue with current diet as ordered. If PO intake low, will consider nutrition supplements 2. MD to consider vit C and zinc for wound healing 3. Monitor PO intake, wt, labs and skin integrity 4. F/U as moderate risk in 3-5 days, 10/17-10/19, PO check 10/17 Expected Outcomes/Goals Expected Outcomes/Goals 1. PO intake to meet at least 75% of nutritional needs. 2. Wt stability, skin to remain intact, labs to approach WNL.
[2017-10-27] MEDS: OLANZapine 5 mg Oral Disintegrating Tab PO SCH ×3 (09:13→17:40)
[2017-10-27] MEDS: Insulin Detemir 100 units/mL 10mL Vial SUBQ SCH (09:13)
--- NOTE | 2017-10-27 14:19 | Infectious Disease Prog Note ---
Infectious Disease Subjective - Review of Systems Service Date: 10/27/17 Subjective: no new change. Infectious Disease Objective - Results Result Diagrams: 10/16/17 09:11 10/22/17 05:05 Recent Labs: Laboratory Last Values WBC 6.7 Th/cmm (4.8-10.8) D 10/16/17 09:11 RBC 4.73 Mil/cmm (3.80-5.80) 10/16/17 09:11 Hgb 13.7 gm/dL (12-16) 10/16/17 09:11 Hct 42.8 % (41.0-60) 10/16/17 09:11 MCV 90.5 fl (80-99) 10/16/17 09:11 MCH 28.9 pg (27.0-31.0) 10/16/17 09:11 MCHC Differential 32.0 pg (28.0-36.0) 10/16/17 09:11 RDW 16.2 % (11.5-20.0) 10/16/17 09:11 Plt Count 162 Th/cmm (150-400) 10/16/17 09:11 MPV 9.7 fl 10/16/17 09:11 Neutrophils % 72.2 % (40.0-80.0) 10/16/17 09:11 Lymphocytes % 19.2 % (20.0-50.0) L 10/16/17 09:11 Monocytes % 5.9 % (2.0-10.0) 10/16/17 09:11 Eosinophils % 1.5 % (0.0-5.0) 10/16/17 09:11 Basophils % 1.2 % (0.0-2.0) 10/16/17 09:11 Eos Smear Source URINE 10/15/17 03:00 Eos Smear Total Cells FEW EOSINOPHILS SEEN (NONE SEEN) 10/15/17 03:00 PT 10.5 SECONDS (9.5-11.5) 10/14/17 06:00 INR 1.01 (0.5-1.4) 10/14/17 06:00 PTT (Actin FS) 25.3 SECONDS (26.0-38.0) L 10/14/17 06:00 Sodium 143 mEq/L (136-145) 10/22/17 05:05 Potassium 3.9 mEq/L (3.5-5.1) 10/22/17 05:05 Chloride 112 mEq/L (98-107) H 10/22/17 05:05 Carbon Dioxide 24.1 mEq/L (21.0-31.0) 10/22/17 05:05 Anion Gap 10.8 (7.0-16.0) 10/22/17 05:05 BUN 16 mg/dL (7-25) 10/22/17 05:05 Creatinine 1.0 mg/dL (0.7-1.3) 10/22/17 05:05 Est GFR ( Amer) TNP 10/22/17 05:05 Est GFR (Non-Af Amer) TNP 10/22/17 05:05 BUN/Creatinine Ratio 16.0 10/22/17 05:05 Glucose 194 mg/dL (70-105) H 10/22/17 05:05 POC Glucose 163 MG/DL (70 - 105) H 10/27/17 12:27 Hemoglobin A1c % 10.5 % (4.0-6.0) H 10/14/17 05:26 Uric Acid 5.6 mg/dL (4.4-7.6) 10/20/17 09:10 Calcium 8.8 mg/dL (8.6-10.3) 10/22/17 05:05 Phosphorus 4.1 mg/dL (2.5-5.0) 10/14/17 06:00 Magnesium 2.0 mg/dL (1.9-2.7) 10/22/17 05:05 Total Bilirubin 0.6 mg/dL (0.3-1.0) 10/16/17 09:11 AST 17 U/L (13-39) 10/16/17 09:11 ALT 13 U/L (7-52) 10/16/17 09:11 Alkaline Phosphatase 81 U/L (34-104) 10/16/17 09:11 Total Protein 6.4 gm/dL (6.0-8.3) 10/16/17 09:11 Albumin 3.0 gm/dL (4.2-5.5) L 10/16/17 09:11 Globulin 3.4 gm/dL 10/16/17 09:11 Albumin/Globulin Ratio 0.9 (1.0-1.8) L 10/16/17 09:11 TSH 0.28 uIU/ml (0.34-5.60) L 10/14/17 06:00 Urine Source CATH 10/15/17 03:00 Urine Color BROWN 10/15/17 03:00 Urine Clarity CLOUDY (CLEAR) 10/15/17 03:00 Urine pH 5.5 (4.6 - 8.0) 10/15/17 03:00 Ur Specific [place] 1.020 (1.005-1.030) 10/15/17 03:00 Urine Protein 100 mg/dL (NEGATIVE) H 10/15/17 03:00 Urine Glucose (UA) >=1000 mg/dL (NEGATIVE) H 10/15/17 03:00 Urine Ketones TRACE mg/dL (NEGATIVE) 10/15/17 03:00 Urine Blood LARGE (NEGATIVE) H 10/15/17 03:00 Urine Nitrate NEGATIVE (NEGATIVE) 10/15/17 03:00 Urine Bilirubin SMALL (NEGATIVE) H 10/15/17 03:00 Urine Ictotest NEGATIVE (NEGATIVE) 10/15/17 03:00 Urine Urobilinogen 0.2 E.U./dL (0.2 - 1.0) 10/15/17 03:00 Ur Leukocyte Esterase TRACE (NEGATIVE) H 10/15/17 03:00 Urine RBC >100 /hpf (0-5) H 10/15/17 03:00 Urine WBC >100 /hpf (0-5) H 10/15/17 03:00 Ur Epithelial Cells OCCASIONAL /lpf (FEW) 10/15/17 03:00 Urine Bacteria MODERATE /hpf (NONE SEEN) H 10/15/17 03:00 Urine Osmolality 749 mOsmol/kg 10/15/17 03:00 Ur Random Sodium 39 mmol/L 10/15/17 03:00 Urine Creatinine 136.0 mg/dl (39.0-259.0) 10/15/17 03:00 - Physical Exam Vitals and I&O: Vital Signs Temp 98.2 F 10/27/17 04:00 Pulse 77 10/27/17 08:58 Resp 18 10/27/17 08:00 BP 146/76 10/27/17 08:58 Pulse Ox 98 10/27/17 04:00 Intake & Output 10/26/17 10/27/17 10/27/17 18:59 06:59 18:59 Intake Total 450 550 Output Total 200 Balance 250 550 Weight (lbs) 77.111 kg 77.111 kg Intake: Oral 450 550 Output: Urine 200 Other: # Voids 2 # Bowel Movements 0 Active Medications: Current Medications Acetaminophen (Tylenol) 650 mg PO Q6HR PRN PRN Reason: mild to moderate pain Stop: 12/11/17 19:27 Last Admin: 10/23/17 00:25 Dose: 650 mg Acetaminophen/Hydrocodone Bitart ([place] 5mg/325mg) 1 tab PO Q6H PRN PRN Reason: Pain (Moderate) Stop: 12/15/17 08:21 Last Admin: 10/22/17 21:26 Dose: 1 tab Allopurinol (Zyloprim) 100 mg PO DAILY [facility] Stop: 12/12/17 08:59 Last Admin: 10/27/17 08:58 Dose: Not Given [place] Oil/[place] Balsam/Trypsin (Venelex) 1 appl TP DAILY [facility] Stop: 12/12/17 15:59 Last Admin: 10/26/17 08:48 Dose: 1 appl Clonazepam (Klonopin) 1 mg PO BID IMMANUEL PRN Reason: Protocol Stop: 12/15/17 08:59 Last Admin: 10/27/17 08:57 Dose: Not Given Famotidine (Pepcid) 20 mg PO BID [facility] Stop: 12/12/17 08:59 Last Admin: 10/27/17 08:59 Dose: Not Given Heparin Sodium (Porcine) (Heparin) 5,000 units SUBQ Q12HR IMMANUEL PRN Reason: Protocol Stop: 12/11/17 20:59 Last Admin: 10/27/17 09:07 Dose: Not Given Levofloxacin (Levaquin Pb) 500 mg in 100 mls @ 100 mls/hr IV Q24HR I[facility]ANUEL Stop: 12/14/17 05:59 Last Admin: 10/27/17 06:39 Dose: 100 mls/hr Insulin Aspart (Novolog Insulin Sliding Scale) 0 units SUBQ ACHS IMMANUEL PRN Reason: Protocol Stop: 12/11/17 20:59 Last Admin: 10/27/17 06:40 Dose: Not Given Insulin Detemir (Levemir Insulin) 18 units SUBQ DAILY IMMANUEL PRN Reason: Protocol Stop: 12/23/17 08:13 Last Admin: 10/27/17 09:13 Dose: Not Given Lorazepam (Ativan) 0.5 mg PO Q6HR PRN; Protocol PRN Reason: agitation Stop: 12/11/17 19:27 Last Admin: 10/24/17 00:09 Dose: 0.5 mg Magnesium Hydroxide (Milk Of Magnesia) 30 ml PO HS PRN PRN Reason: Constipation Stop: 12/11/17 19:27 Metoprolol Succinate (Toprol Xl) 25 mg PO BID IMMANUEL Stop: 12/12/17 16:59 Last Admin: 10/27/17 08:58 Dose: Not Given Olanzapine (Zyprexa Zydis) 12.5 mg PO BID IMMANUEL PRN Reason: Protocol Stop: 12/17/17 12:28 Last Admin: 10/27/17 09:13 Dose: Not Given Zolpidem Tartrate (Ambien) 5 mg PO HS PRN PRN Reason: insomnia Stop: 12/11/17 19:27 Last Admin: 10/26/17 21:25 Dose: 5 mg General: no acute distress, well developed, well nourished HEENT: atraumatic, normocephalic, PERRLA, EOMI Neck: supple, no thyromegaly Cardiovascular: S1S2, regular Lungs: clear to auscultation bilaterally, clear to percussion Abdomen: soft, no tender, no distended, no rebound Extremities: no cyanosis, no clubbing, no edema Neurological: awake, alert, oriented - Procedures Procedures: Procedures Procedure Code Date JEWEL MUSC/FASCIA 20 SQ CM/< 42709 10/12/17 EXCISION OF RIGHT HIP MUSCLE, OPEN APPROACH [id number] 10/12/17 Infectious Disease Assmt/Plan - Assessment Assessment: 1. Sacral stage III decubitus ulcer, infected. 2. Status post I&D. 3. Diabetes mellitus type . 4. Dementia. 5. Depression. 6. psychosis. 7. Schizophrenia. - Plan Plan: CPM. wound care. Nutritional Asmnt/Malnutr-PDOC - Dietary Evaluation Malnutrition Findings (Please click <Entered> for more info): Nutritional Asmnt/Malnutrition Start: 10/14/17 17: 10 Text: Status: Complete Freq: Document 10/14/17 17:13 LCHENG (Rec: 10/14/17 17:25 LCHENG [email or web address]) Nutritional Asmnt/Malnutrition Patient General Information Nutritional Screening High Risk Consult Diagnosis pressure ulcer, hyperglycemia, dehydration Pertinent Medical Hx/Surgical Hx DM, dementia, depression, psychosis, schizophrenia, chronic renal insuff Subjective Information Consult received for unstageble pressure ulcer on , high BG on 10/12. Per records, PO intake 50-75%. Pt was on NPO today for surgery- excisional debridement, application of wound VAC Current Diet Order/ Nutrition Support pureed, CCHO 60gm Pertinent Medications novolog Pertinent Labs 10/14 Na 152, K 4.6, BUN 56, Cr 1.8, Glucose 262, POC 236-246 , Mg 2.9 Nutritional Hx/Data Height 1.8 m Height (Calculated Centimeters) 180.3 Current Weight (lbs) 70.76 kg Weight (Calculated Kilograms) 70.8 Weight (Calculated Grams) 61243.4 [place] Body Weight 172 % [place] Body Weight 91 Body Mass Index (BMI) 21.7 Weight Status Approriate GI Symptoms GI Symptoms None Last BM 10/13 Difficult in: None Skin Integrity/Comment: scar to right upper back, decubitus ulcer to buttocks Current %PO Fair (50-74%) Estimated Nutritional Goals BEE in Kcals: Using Current wt Calories/Kcals/Kg 27-32 Kcals Calculated 4294-0978 Protein: Using Current wt Protein g/k-1.2 Protein Calculated 71-85 Fluid: ml 1917-2130ml (1ml/kcal) Nutritional Problem 2. Problem Problem altered nutrition related lab values Etiology hx of DM Signs/Symptoms: Glucose 262, POC 236-246 1. Problem Problem increased nutrition needs ( calorie and protein) Etiology increased metabolic demand for wound healing Signs/Symptoms: decubitus ulcer and surgery Intervention/Recommendation Comments 1. Continue with current diet as ordered. If PO intake low, will consider nutrition supplements 2. MD to consider vit C and zinc for wound healing 3. Monitor PO intake, wt, labs and skin integrity 4. F/U as moderate risk in 3-5 days, 3/2-3, PO check 10/17 Expected Outcomes/Goals Expected Outcomes/Goals 1. PO intake to meet at least 75% of nutritional needs. 2. Wt stability, skin to remain intact, labs to approach WNL.
[2017-10-27] MEDS: Venelex 60gm Tube TP SCH (14:25)
[2017-10-28] MEDS: Levofloxacin 500mg/100mL 500 MG/100 ML BAG IV SCH (06:24)
[2017-10-28] MEDS: INSULIN ASPART SLIDING SCALE 100 UNITS/ML UNIT SUBQ SCH ×4 (08:24→22:04)
[2017-10-28] MEDS: Insulin Detemir 100 units/mL 10mL Vial SUBQ SCH (08:31)
[2017-10-28 08:55] LABS: % BASOPHILS 0.6 % (0.0-2.0); % EOSINOPHILS 0.7 % (0.0-5.0); % LYMPHOCYTES 26.6 % (20.0-50.0); % MONOCYTES 5.9 % (2.0-10.0); % NEUTROPHILS 66.2 % (40.0-80.0); HEMATOCRIT 38.4 % (41.0-60); HEMOGLOBIN 12.7 gm/dL (12-16); LYMPHOCYTE ABSOLUTE 1.6 Th/cmm (1.5-3.0); MEAN CELL VOLUME 89.2 fl (80-99); MEAN CORPUSCULAR HEMOGLOBIN 29.4 pg (27.0-31.0); MEAN PLATELET VOLUME 8.6 fl; MONOCYTE ABSOLUTE 0.4 Th/cmm (0.3-1.0); NEUTROPHILE ABSOLUTE 4.2 Th/cmm (1.8-8.0); PLATELET COUNT 264 Th/cmm (150-400); RED CELL DISTRIBUTION WIDTH 16.5 % (11.5-20.0); WHITE BLOOD COUNT 6.2 Th/cmm (4.8-10.8)
[2017-10-28 09:13] LABS: ANION GAP 15.9 (7.0-16.0); BUN - UREA NITROGEN 17 mg/dL (7-25); CALCIUM SERUM 8.9 mg/dL (8.6-10.3); CHLORIDE 103 mEq/L (98-107); CREATININE - SERUM 1.1 mg/dL (0.7-1.3); GLUCOSE 191 mg/dL (70-105); POTASSIUM SERUM 3.9 mEq/L (3.5-5.1); SODIUM SERUM 137 mEq/L (136-145); TOTAL PROTEIN,SERUM 6.8 gm/dL (6.0-8.3)
[2017-10-28 09:14] LABS: ALB/GLOB RATIO 0.8 (1.0-1.8); ALKALINE PHOSPHATASE 67 U/L (34-104); BILIRUBIN,TOTAL 0.7 mg/dL (0.3-1.0); SGOT 18 U/L (13-39); SGPT/ALT 16 U/L (7-52)
[2017-10-28] MEDS: OLANZapine 5 mg Oral Disintegrating Tab PO SCH ×2 (10:45→17:44)
[2017-10-28] MEDS: Venelex 60gm Tube TP SCH (10:52)
--- NOTE | 2017-10-28 13:33 | General Progress Note ---
Subjective - Review of Systems Service Date: 10/28/17 Subjective: alert, comfortable, periods of confusion Objective - Results Result Diagrams: 10/28/17 08:40 10/28/17 08:40 Recent Labs: Laboratory Last Values WBC 6.2 Th/cmm (4.8-10.8) 10/28/17 08:40 RBC 4.30 Mil/cmm (3.80-5.80) 10/28/17 08:40 Hgb 12.7 gm/dL (12-16) 10/28/17 08:40 Hct 38.4 % (41.0-60) L 10/28/17 08:40 MCV 89.2 fl (80-99) 10/28/17 08:40 MCH 29.4 pg (27.0-31.0) 10/28/17 08:40 MCHC Differential 33.0 pg (28.0-36.0) 10/28/17 08:40 RDW 16.5 % (11.5-20.0) 10/28/17 08:40 Plt Count 264 Th/cmm (150-400) 10/28/17 08:40 MPV 8.6 fl 10/28/17 08:40 Neutrophils % 66.2 % (40.0-80.0) 10/28/17 08:40 Lymphocytes % 26.6 % (20.0-50.0) 10/28/17 08:40 Monocytes % 5.9 % (2.0-10.0) 10/28/17 08:40 Eosinophils % 0.7 % (0.0-5.0) 10/28/17 08:40 Basophils % 0.6 % (0.0-2.0) 10/28/17 08:40 Eos Smear Source URINE 10/15/17 03:00 Eos Smear Total Cells FEW EOSINOPHILS SEEN (NONE SEEN) 10/15/17 03:00 PT 10.5 SECONDS (9.5-11.5) 10/14/17 06:00 INR 1.01 (0.5-1.4) 10/14/17 06:00 PTT (Actin FS) 25.3 SECONDS (26.0-38.0) L 10/14/17 06:00 Sodium 137 mEq/L (136-145) 10/28/17 08:40 Potassium 3.9 mEq/L (3.5-5.1) 10/28/17 08:40 Chloride 103 mEq/L (98-107) 10/28/17 08:40 Carbon Dioxide 22.0 mEq/L (21.0-31.0) 10/28/17 08:40 Anion Gap 15.9 (7.0-16.0) 10/28/17 08:40 BUN 17 mg/dL (7-25) 10/28/17 08:40 Creatinine 1.1 mg/dL (0.7-1.3) 10/28/17 08:40 Est GFR ( Amer) TNP 10/28/17 08:40 Est GFR (Non-Af Amer) TNP 10/28/17 08:40 BUN/Creatinine Ratio 15.5 10/28/17 08:40 Glucose 191 mg/dL (70-105) H 10/28/17 08:40 POC Glucose 147 MG/DL (70 - 105) H 10/28/17 11:53 Hemoglobin A1c % 10.5 % (4.0-6.0) H 10/14/17 05:26 Uric Acid 5.6 mg/dL (4.4-7.6) 10/20/17 09:10 Calcium 8.9 mg/dL (8.6-10.3) 10/28/17 08:40 Phosphorus 4.1 mg/dL (2.5-5.0) 10/14/17 06:00 Magnesium 2.0 mg/dL (1.9-2.7) 10/22/17 05:05 Total Bilirubin 0.7 mg/dL (0.3-1.0) 10/28/17 08:40 AST 18 U/L (13-39) 10/28/17 08:40 ALT 16 U/L (7-52) 10/28/17 08:40 Alkaline Phosphatase 67 U/L (34-104) 10/28/17 08:40 Total Protein 6.8 gm/dL (6.0-8.3) 10/28/17 08:40 Albumin 3.0 gm/dL (4.2-5.5) L 10/28/17 08:40 Globulin 3.8 gm/dL 10/28/17 08:40 Albumin/Globulin Ratio 0.8 (1.0-1.8) L 10/28/17 08:40 TSH 0.28 uIU/ml (0.34-5.60) L 10/14/17 06:00 Urine Source CATH 10/15/17 03:00 Urine Color BROWN 10/15/17 03:00 Urine Clarity CLOUDY (CLEAR) 10/15/17 03:00 Urine pH 5.5 (4.6 - 8.0) 10/15/17 03:00 Ur Specific [place] 1.020 (1.005-1.030) 10/15/17 03:00 Urine Protein 100 mg/dL (NEGATIVE) H 10/15/17 03:00 Urine Glucose (UA) >=1000 mg/dL (NEGATIVE) H 10/15/17 03:00 Urine Ketones TRACE mg/dL (NEGATIVE) 10/15/17 03:00 Urine Blood LARGE (NEGATIVE) H 10/15/17 03:00 Urine Nitrate NEGATIVE (NEGATIVE) 10/15/17 03:00 Urine Bilirubin SMALL (NEGATIVE) H 10/15/17 03:00 Urine Ictotest NEGATIVE (NEGATIVE) 10/15/17 03:00 Urine Urobilinogen 0.2 E.U./dL (0.2 - 1.0) 10/15/17 03:00 Ur Leukocyte Esterase TRACE (NEGATIVE) H 10/15/17 03:00 Urine RBC >100 /hpf (0-5) H 10/15/17 03:00 Urine WBC >100 /hpf (0-5) H 10/15/17 03:00 Ur Epithelial Cells OCCASIONAL /lpf (FEW) 10/15/17 03:00 Urine Bacteria MODERATE /hpf (NONE SEEN) H 10/15/17 03:00 Urine Osmolality 749 mOsmol/kg 10/15/17 03:00 Ur Random Sodium 39 mmol/L 10/15/17 03:00 Urine Creatinine 136.0 mg/dl (39.0-259.0) 10/15/17 03:00 - Physical Exam Vitals and I&O: Vital Signs Temp 98.4 F 10/28/17 04:00 Pulse 120 10/28/17 10:43 Resp 112 10/28/17 04:00 BP 137/72 10/28/17 10:43 Pulse Ox 98 10/28/17 04:00 Intake & Output 10/27/17 10/28/17 10/28/17 18:59 06:59 18:59 Intake Total 100 1150 Output Total 450 Balance 100 700 Weight (lbs) 77.111 kg Intake: Intake, IV Amount 100 Levofloxacin 500mg/100mL 100 500 mg In 100 ml @ 100 mls/hr IV Q24HR [facility] Rx#: [id number] Oral 1150 Output: Urine 450 Other: # Voids 3 # Bowel Movements 2 Active Medications: Current Medications Acetaminophen (Tylenol) 650 mg PO Q6HR PRN PRN Reason: mild to moderate pain Stop: 12/11/17 19:27 Last Admin: 10/23/17 00:25 Dose: 650 mg Acetaminophen/Hydrocodone Bitart ([place] 5mg/325mg) 1 tab PO Q6H PRN PRN Reason: Pain (Moderate) Stop: 12/15/17 08:21 Last Admin: 10/22/17 21:26 Dose: 1 tab Allopurinol (Zyloprim) 100 mg PO DAILY [facility] Stop: 12/12/17 08:59 Last Admin: 10/28/17 10:44 Dose: 100 mg [place] Oil/[place] Balsam/Trypsin (Venelex) 1 appl TP DAILY [facility] Stop: 12/12/17 15:59 Last Admin: 10/28/17 10:52 Dose: 1 appl Clonazepam (Klonopin) 1 mg PO BID IMMANUEL PRN Reason: Protocol Stop: 12/15/17 08:59 Last Admin: 10/28/17 10:44 Dose: 1 mg Famotidine (Pepcid) 20 mg PO BID [facility] Stop: 12/12/17 08:59 Last Admin: 10/28/17 10:43 Dose: 20 mg Heparin Sodium (Porcine) (Heparin) 5,000 units SUBQ Q12HR IMMANUEL PRN Reason: Protocol Stop: 12/11/17 20:59 Last Admin: 10/28/17 10:51 Dose: Not Given Levofloxacin (Levaquin Pb) 500 mg in 100 mls @ 100 mls/hr IV Q24HR IMMANUEL Stop: 12/14/17 05:59 Last Admin: 10/28/17 06:24 Dose: 100 mls/hr Insulin Aspart (Novolog Insulin Sliding Scale) 0 units SUBQ ACHS IMMANUEL PRN Reason: Protocol Stop: 12/11/17 20:59 Last Admin: 10/28/17 12:07 Dose: Not Given Insulin Detemir (Levemir Insulin) 18 units SUBQ DAILY IMAMNUEL PRN Reason: Protocol Stop: 12/23/17 08:13 Last Admin: 10/28/17 08:31 Dose: 18 units Lorazepam (Ativan) 0.5 mg PO Q6HR PRN; Protocol PRN Reason: agitation Stop: 12/11/17 19:27 Last Admin: 10/24/17 00:09 Dose: 0.5 mg Magnesium Hydroxide (Milk Of Magnesia) 30 ml PO HS PRN PRN Reason: Constipation Stop: 12/11/17 19:27 Metoprolol Succinate (Toprol Xl) 25 mg PO BID IMMANUEL Stop: 12/12/17 16:59 Last Admin: 10/28/17 10:43 Dose: 25 mg Olanzapine (Zyprexa Zydis) 12.5 mg PO BID IMMANUEL PRN Reason: Protocol Stop: 12/17/17 12:28 Last Admin: 10/28/17 10:45 Dose: 12.5 mg Zolpidem Tartrate (Ambien) 5 mg PO HS PRN PRN Reason: insomnia Stop: 12/11/17 19:27 Last Admin: 10/26/17 21:25 Dose: 5 mg General: Alert, No acute distress HEENT: Atraumatic, PERRLA Neck: Supple Cardiovascular: Regular rate, Normal S1, Normal S2 Lungs: Clear to auscultation Abdomen: Bowel sounds, Soft Extremities: no Clubbing, no Cyanosis, no Edema Neurological: Sensation intact Skin: no Rash Psych/Mental Status: Mood NL - Procedures Procedures: Procedures Procedure Code Date JEWEL MUSC/FASCIA 20 SQ CM/< 44646 10/12/17 EXCISION OF RIGHT HIP MUSCLE, OPEN APPROACH [id number] 10/12/17 Assessment/Plan - Assessment Assessment: KEN on CKD Stage 4 decub ulcer S/P debridement Severe dehydration Ess HTN Type 2 DM Psychosis - Plan Plan: Lab - Result Diagrams 10/14/17 06:00 10/14/17 06:00 Current Medications Acetaminophen (Tylenol) 650 mg PO Q6HR PRN PRN Reason: mild to moderate pain Stop: 12/11/17 19:27 Allopurinol (Zyloprim) 100 mg PO DAILY [facility] Stop: 12/12/17 08:59 Last Admin: 10/14/17 10:00 Dose: Not Given [place] Oil/[place] Balsam/Trypsin (Venelex) 1 appl TP DAILY [facility] Stop: 12/12/17 15:59 Last Admin: 10/14/17 10:00 Dose: 1 appl Famotidine (Pepcid) 20 mg PO BID IMMANUEL Stop: 12/12/17 08:59 Last Admin: 10/14/17 18:22 Dose: 20 mg Heparin Sodium (Porcine) (Heparin) 5,000 units SUBQ Q12HR IMMANUEL PRN Reason: Protocol Stop: 12/11/17 20:59 Last Admin: 10/14/17 07:50 Dose: Not Given Ceftriaxone Sodium 1 gm/ (Sodium Chloride) 50 mls @ 100 mls/hr IV Q24HR IMMANUEL Stop: 12/11/17 16:44 Last Admin: 10/14/17 17:45 Dose: 100 mls/hr Insulin Aspart (Novolog Insulin Sliding Scale) 0 units SUBQ ACHS IMMANUEL PRN Reason: Protocol Stop: 12/11/17 20:59 Last Admin: 10/14/17 18:23 Dose: 6 units Lorazepam (Ativan) 0.5 mg PO Q6HR PRN; Protocol PRN Reason: agitation Stop: 12/11/17 19:27 Magnesium Hydroxide (Milk Of Magnesia) 30 ml PO HS PRN PRN Reason: Constipation Stop: 12/11/17 19:27 Metoprolol Succinate (Toprol Xl) 25 mg PO BID [facility] Stop: 12/12/17 16:59 Last Admin: 10/14/17 18:23 Dose: 25 mg Miscellaneous (Clinical Monitoring) 1 ea MC PRN PRN PRN Reason: RENAL Stop: 12/12/17 10:33 Olanzapine (Zyprexa Zydis) 5 mg PO BID IMMANUEL PRN Reason: Protocol Stop: 12/13/17 16:59 Zolpidem Tartrate (Ambien) 5 mg PO HS PRN PRN Reason: insomnia Stop: 12/11/17 Lab - Result Diagrams 10/28/17 08:40 10/28/17 08:40 Na down to 137 Kidney fnc gradually improving agree w/ Allopurinol f/u electrolytes, agree w/ Levaquin continue hydration BS better control increase Detemir replace K Placement in progress Nutritional Asmnt/Malnutr-PDOC - Dietary Evaluation Malnutrition Findings (Please click <Entered> for more info): Nutritional Asmnt/Malnutrition Start: 10/14/17 17: 10 Text: Status: Complete Freq: Document 10/14/17 17:13 GREY (Rec: 10/14/17 17:25 GREY [email or web address]) Nutritional Asmnt/Malnutrition Patient General Information Nutritional Screening High Risk Consult Diagnosis pressure ulcer, hyperglycemia, dehydration Pertinent Medical Hx/Surgical Hx DM, dementia, depression, psychosis, schizophrenia, chronic renal insuff Subjective Information Consult received for unstageble pressure ulcer on , high BG on 10/12. Per records, PO intake 50-75%. Pt was on NPO today for surgery- excisional debridement, application of wound VAC Current Diet Order/ Nutrition Support pureed, CCHO 60gm Pertinent Medications novolog Pertinent Labs 10/14 Na 152, K 4.6, BUN 56, Cr 1.8, Glucose 262, POC 236-246 , Mg 2.9 Nutritional Hx/Data Height 1.8 m Height (Calculated Centimeters) 180.3 Current Weight (lbs) 70.76 kg Weight (Calculated Kilograms) 70.8 Weight (Calculated Grams) 68307.4 [place] Body Weight 172 % [place] Body Weight 91 Body Mass Index (BMI) 21.7 Weight Status Approriate GI Symptoms GI Symptoms None Last BM 10/13 Difficult in: None Skin Integrity/Comment: scar to right upper back, decubitus ulcer to buttocks Current %PO Fair (50-74%) Estimated Nutritional Goals BEE in Kcals: Using Current wt Calories/Kcals/Kg 27-32 Kcals Calculated 9256-3584 Protein: Using Current wt Protein g/k-1.2 Protein Calculated 71-85 Fluid: ml 1917-2130ml (1ml/kcal) Nutritional Problem 2. Problem Problem altered nutrition related lab values Etiology hx of DM Signs/Symptoms: Glucose 262, POC 236-246 1. Problem Problem increased nutrition needs ( calorie and protein) Etiology increased metabolic demand for wound healing Signs/Symptoms: decubitus ulcer and surgery Intervention/Recommendation Comments 1. Continue with current diet as ordered. If PO intake low, will consider nutrition supplements 2. MD to consider vit C and zinc for wound healing 3. Monitor PO intake, wt, labs and skin integrity 4. F/U as moderate risk in 3-5 days, 3/2-3/4, PO check 10/17 Expected Outcomes/Goals Expected Outcomes/Goals 1. PO intake to meet at least 75% of nutritional needs. 2. Wt stability, skin to remain intact, labs to approach WNL.
[2017-10-28 14:59] LABS: URINE MICROSCOPIC INDICATED? YES; URINE SOURCE FOLEY PORT
[2017-10-28 15:00] LABS: URINE BILIRUBIN MODERATE (NEGATIVE); URINE BLOOD MODERATE (NEGATIVE); URINE GLUCOSE (UA) NEGATIVE (NEGATIVE); URINE KETONE TRACE mg/dL (NEGATIVE); URINE LEUKOCYTE ESTERASE SMALL (NEGATIVE); URINE NITRATE NEGATIVE (NEGATIVE); URINE PH 5.5 (4.6 - 8.0); URINE PROTEIN 30 mg/dL (NEGATIVE)
[2017-10-28 15:58] LABS: URINE CLARITY CLOUDY (CLEAR); URINE COLOR ORANGE
[2017-10-28 16:02] LABS: URINE BACTERIA FEW /hpf (NONE SEEN); URINE EPITHELIAL CELLS FEW /lpf (FEW)
[2017-10-28 16:03] LABS: URINE YEAST MANY /hpf (NONE SEEN)
[2017-10-29] MEDS: Levofloxacin 500mg/100mL 500 MG/100 ML BAG IV SCH (06:33)
[2017-10-29] MEDS: INSULIN ASPART SLIDING SCALE 100 UNITS/ML UNIT SUBQ SCH ×4 (06:50→21:20)
--- NOTE | 2017-10-29 08:24 | General Progress Note ---
Subjective - Review of Systems Service Date: 10/29/17 Subjective: Patient is awake and alert. no acute distress. patient eating fine. Irritable. Patient blood sugar stable. continue levemir 18u Daily. Urine + Staph Aureas sensitive to Levofloxacin. Objective - Results Result Diagrams: 10/28/17 08:40 10/28/17 08:40 Recent Labs: Laboratory Last Values WBC 6.2 Th/cmm (4.8-10.8) 10/28/17 08:40 RBC 4.30 Mil/cmm (3.80-5.80) 10/28/17 08:40 Hgb 12.7 gm/dL (12-16) 10/28/17 08:40 Hct 38.4 % (41.0-60) L 10/28/17 08:40 MCV 89.2 fl (80-99) 10/28/17 08:40 MCH 29.4 pg (27.0-31.0) 10/28/17 08:40 MCHC Differential 33.0 pg (28.0-36.0) 10/28/17 08:40 RDW 16.5 % (11.5-20.0) 10/28/17 08:40 Plt Count 264 Th/cmm (150-400) 10/28/17 08:40 MPV 8.6 fl 10/28/17 08:40 Neutrophils % 66.2 % (40.0-80.0) 10/28/17 08:40 Lymphocytes % 26.6 % (20.0-50.0) 10/28/17 08:40 Monocytes % 5.9 % (2.0-10.0) 10/28/17 08:40 Eosinophils % 0.7 % (0.0-5.0) 10/28/17 08:40 Basophils % 0.6 % (0.0-2.0) 10/28/17 08:40 Eos Smear Source URINE 10/15/17 03:00 Eos Smear Total Cells FEW EOSINOPHILS SEEN (NONE SEEN) 10/15/17 03:00 PT 10.5 SECONDS (9.5-11.5) 10/14/17 06:00 INR 1.01 (0.5-1.4) 10/14/17 06:00 PTT (Actin FS) 25.3 SECONDS (26.0-38.0) L 10/14/17 06:00 Sodium 137 mEq/L (136-145) 10/28/17 08:40 Potassium 3.9 mEq/L (3.5-5.1) 10/28/17 08:40 Chloride 103 mEq/L (98-107) 10/28/17 08:40 Carbon Dioxide 22.0 mEq/L (21.0-31.0) 10/28/17 08:40 Anion Gap 15.9 (7.0-16.0) 10/28/17 08:40 BUN 17 mg/dL (7-25) 10/28/17 08:40 Creatinine 1.1 mg/dL (0.7-1.3) 10/28/17 08:40 Est GFR ( Amer) TNP 10/28/17 08:40 Est GFR (Non-Af Amer) TNP 10/28/17 08:40 BUN/Creatinine Ratio 15.5 10/28/17 08:40 Glucose 191 mg/dL (70-105) H 10/28/17 08:40 POC Glucose 156 MG/DL (70 - 105) H 10/28/17 17:54 Hemoglobin A1c % 10.5 % (4.0-6.0) H 10/14/17 05:26 Uric Acid 5.6 mg/dL (4.4-7.6) 10/20/17 09:10 Calcium 8.9 mg/dL (8.6-10.3) 10/28/17 08:40 Phosphorus 4.1 mg/dL (2.5-5.0) 10/14/17 06:00 Magnesium 2.0 mg/dL (1.9-2.7) 10/22/17 05:05 Total Bilirubin 0.7 mg/dL (0.3-1.0) 10/28/17 08:40 AST 18 U/L (13-39) 10/28/17 08:40 ALT 16 U/L (7-52) 10/28/17 08:40 Alkaline Phosphatase 67 U/L (34-104) 10/28/17 08:40 Total Protein 6.8 gm/dL (6.0-8.3) 10/28/17 08:40 Albumin 3.0 gm/dL (4.2-5.5) L 10/28/17 08:40 Globulin 3.8 gm/dL 10/28/17 08:40 Albumin/Globulin Ratio 0.8 (1.0-1.8) L 10/28/17 08:40 TSH 0.28 uIU/ml (0.34-5.60) L 10/14/17 06:00 Urine Source ANDRE PORT 10/28/17 14:00 Urine Color ORANGE 10/28/17 14:00 Urine Clarity CLOUDY (CLEAR) 10/28/17 14:00 Urine pH 5.5 (4.6 - 8.0) 10/28/17 14:00 Ur Specific [place] >= 1.030 (1.005-1.030) 10/28/17 14:00 Urine Protein 30 mg/dL (NEGATIVE) H 10/28/17 14:00 Urine Glucose (UA) NEGATIVE mg/dL (NEGATIVE) 10/28/17 14:00 Urine Ketones TRACE mg/dL (NEGATIVE) 10/28/17 14:00 Urine Blood MODERATE (NEGATIVE) H 10/28/17 14:00 Urine Nitrate NEGATIVE (NEGATIVE) 10/28/17 14:00 Urine Bilirubin MODERATE (NEGATIVE) H 10/28/17 14:00 Urine Ictotest NEGATIVE (NEGATIVE) 10/15/17 03:00 Urine Urobilinogen 1.0 E.U./dL (0.2 - 1.0) 10/28/17 14:00 Ur Leukocyte Esterase SMALL (NEGATIVE) H 10/28/17 14:00 Urine RBC 10-25 /hpf (0-5) H 10/28/17 14:00 Urine WBC 6-10 /hpf (0-5) 10/28/17 14:00 Ur Epithelial Cells FEW /lpf (FEW) 10/28/17 14:00 Urine Bacteria FEW /hpf (NONE SEEN) 10/28/17 14:00 Urine Yeast MANY /hpf (NONE SEEN) H 10/28/17 14:00 Urine Osmolality 749 mOsmol/kg 10/15/17 03:00 Ur Random Sodium 39 mmol/L 10/15/17 03:00 Urine Creatinine 136.0 mg/dl (39.0-259.0) 10/15/17 03:00 - Physical Exam Vitals and I&O: Vital Signs Temp 98.0 F 10/29/17 00:00 Pulse 95 10/29/17 00:00 Resp 20 10/29/17 00:00 BP 130/81 10/29/17 00:00 Pulse Ox 98 10/29/17 00:00 Intake & Output 10/28/17 10/29/17 10/29/17 18:59 06:59 18:59 Intake Total 600 120 Output Total 400 Balance 200 120 Weight (lbs) 77.111 kg 77.111 kg Intake: Intake, IV Amount 100 Levofloxacin 500mg/100mL 100 500 mg In 100 ml @ 100 mls/hr IV Q24HR [facility] Rx#: [id number] Oral 500 120 Output: Urine 400 Other: # Voids 4 # Bowel Movements 2 Active Medications: Current Medications Acetaminophen (Tylenol) 650 mg PO Q6HR PRN PRN Reason: mild to moderate pain Stop: 12/11/17 19:27 Last Admin: 10/23/17 00:25 Dose: 650 mg Acetaminophen/Hydrocodone Bitart ([place] 5mg/325mg) 1 tab PO Q6H PRN PRN Reason: Pain (Moderate) Stop: 12/15/17 08:21 Last Admin: 10/22/17 21:26 Dose: 1 tab Allopurinol (Zyloprim) 100 mg PO DAILY IMMANUEL Stop: 12/12/17 08:59 Last Admin: 10/28/17 10:44 Dose: 100 mg [place] Oil/Macanese Balsam/Trypsin (Venelex) 1 appl TP DAILY IMMANUEL Stop: 12/12/17 15:59 Last Admin: 10/28/17 10:52 Dose: 1 appl Clonazepam (Klonopin) 1 mg PO BID IMMANUEL PRN Reason: Protocol Stop: 12/15/17 08:59 Last Admin: 10/28/17 17:42 Dose: 1 mg Famotidine (Pepcid) 20 mg PO BID [facility] Stop: 12/12/17 08:59 Last Admin: 10/28/17 17:44 Dose: 20 mg Heparin Sodium (Porcine) (Heparin) 5,000 units SUBQ Q12HR IMMANUEL PRN Reason: Protocol Stop: 12/11/17 20:59 Last Admin: 10/28/17 22:05 Dose: 5,000 units Levofloxacin (Levaquin Pb) 500 mg in 100 mls @ 100 mls/hr IV Q24HR IMMANUEL Stop: 12/14/17 05:59 Last Admin: 10/29/17 06:33 Dose: 100 mls/hr Insulin Aspart (Novolog Insulin Sliding Scale) 0 units SUBQ ACHS IMMANUEL PRN Reason: Protocol Stop: 12/11/17 20:59 Last Admin: 10/29/17 06:50 Dose: Not Given Insulin Detemir (Levemir Insulin) 18 units SUBQ DAILY IMMANUEL PRN Reason: Protocol Stop: 12/23/17 08:13 Last Admin: 10/28/17 08:31 Dose: 18 units Lorazepam (Ativan) 0.5 mg PO Q6HR PRN; Protocol PRN Reason: agitation Stop: 12/11/17 19:27 Last Admin: 10/24/17 00:09 Dose: 0.5 mg Magnesium Hydroxide (Milk Of Magnesia) 30 ml PO HS PRN PRN Reason: Constipation Stop: 12/11/17 19:27 Metoprolol Succinate (Toprol Xl) 25 mg PO BID IMMANUEL Stop: 12/12/17 16:59 Last Admin: 10/28/17 17:42 Dose: 25 mg Olanzapine (Zyprexa Zydis) 12.5 mg PO BID IMMANUEL PRN Reason: Protocol Stop: 12/17/17 12:28 Last Admin: 10/28/17 17:44 Dose: 12.5 mg Zolpidem Tartrate (Ambien) 5 mg PO HS PRN PRN Reason: insomnia Stop: 12/11/17 19:27 Last Admin: 10/26/17 21:25 Dose: 5 mg General: Alert, No acute distress HEENT: Atraumatic, PERRLA Neck: Supple Cardiovascular: Regular rate, Normal S1, Normal S2 Lungs: Clear to auscultation Abdomen: Bowel sounds, Soft Extremities: no Clubbing, no Cyanosis, no Edema Neurological: Sensation intact Skin: no Rash Psych/Mental Status: Mood NL - Procedures Procedures: Procedures Procedure Code Date JEWEL MUSC/FASCIA 20 SQ CM/< 38869 10/12/17 EXCISION OF RIGHT HIP MUSCLE, OPEN APPROACH [id number] 10/12/17 Assessment/Plan - Assessment Assessment: Sacral stage III decubitus ulcer, infected. Diabetes mellitus type Depression. psychosis. Hematuria. hypernatremia resolved prerenal azotemia improved. hyperglycemia ... stable depression/anxiety gout ... on allopurinol. check uric acid level dementia schizophrenia S/P wound debridement of sacral decubitus ... continue wound care treatment. UTI +Staph Aureus sensitive to Levofloxacin KEN on CKD ... resolved. hyperkalemia resolved. discharge planning. - Plan Plan: will order cmp this AM renal consult -- Dr. Sharp sacral decubitus ... will order Gen Surgical consult -- Dr. Greene for possible wound debridement Gout ... continue allopurinol 100mg PO daily continue wound vac. continue hydrocodone PO for pain control. change Levofloxacin to PO discharge planning/placement Nutritional Asmnt/Malnutr-PDOC - Dietary Evaluation Malnutrition Findings (Please click <Entered> for more info): Nutritional Asmnt/Malnutrition Start: 10/14/17 17: 10 Text: Status: Complete Freq: Document 10/14/17 17:13 DEMI (Rec: 10/14/17 17:25 [email or web address] Nutritional Asmnt/Malnutrition Patient General Information Nutritional Screening High Risk Consult Diagnosis pressure ulcer, hyperglycemia, dehydration Pertinent Medical Hx/Surgical Hx DM, dementia, depression, psychosis, schizophrenia, chronic renal insuff Subjective Information Consult received for unstageble pressure ulcer on , high BG on 10/12. Per records, PO intake 50-75%. Pt was on NPO today for surgery- excisional debridement, application of wound VAC Current Diet Order/ Nutrition Support pureed, CCHO 60gm Pertinent Medications novolog Pertinent Labs 10/14 Na 152, K 4.6, BUN 56, Cr 1.8, Glucose 262, POC 236-246 , Mg 2.9 Nutritional Hx/Data Height 1.8 m Height (Calculated Centimeters) 180.3 Current Weight (lbs) 70.76 kg Weight (Calculated Kilograms) 70.8 Weight (Calculated Grams) 75407.4 [place] Body Weight 172 % [place] Body Weight 91 Body Mass Index (BMI) 21.7 Weight Status Approriate GI Symptoms GI Symptoms None Last BM 10/13 Difficult in: None Skin Integrity/Comment: scar to right upper back, decubitus ulcer to buttocks Current %PO Fair (50-74%) Estimated Nutritional Goals BEE in Kcals: Using Current wt Calories/Kcals/Kg 27-32 Kcals Calculated 4112-9345 Protein: Using Current wt Protein g/k-1.2 Protein Calculated 71-85 Fluid: ml 191-2129ml (1ml/kcal) Nutritional Problem 2. Problem Problem altered nutrition related lab values Etiology hx of DM Signs/Symptoms: Glucose 262, POC 236-246 1. Problem Problem increased nutrition needs ( calorie and protein) Etiology increased metabolic demand for wound healing Signs/Symptoms: decubitus ulcer and surgery Intervention/Recommendation Comments 1. Continue with current diet as ordered. If PO intake low, will consider nutrition supplements 2. MD to consider vit C and zinc for wound healing 3. Monitor PO intake, wt, labs and skin integrity 4. F/U as moderate risk in 3-5 days, 3/2-3/, PO check 3/2 Expected Outcomes/Goals Expected Outcomes/Goals 1. PO intake to meet at least 75% of nutritional needs. 2. Wt stability, skin to remain intact, labs to approach WNL.
[2017-10-29] MEDS: Insulin Detemir 100 units/mL 10mL Vial SUBQ SCH (10:03)
[2017-10-29] MEDS: Venelex 60gm Tube TP SCH (10:04)
[2017-10-29] MEDS: OLANZapine 5 mg Oral Disintegrating Tab PO SCH ×2 (10:19→16:17)
--- NOTE | 2017-10-29 14:31 | General Progress Note ---
Subjective - Review of Systems Service Date: 10/29/17 Subjective: alert, comfortable, periods of confusion Objective - Results Result Diagrams: 10/28/17 08:40 10/28/17 08:40 Recent Labs: Laboratory Last Values WBC 6.2 Th/cmm (4.8-10.8) 10/28/17 08:40 RBC 4.30 Mil/cmm (3.80-5.80) 10/28/17 08:40 Hgb 12.7 gm/dL (12-16) 10/28/17 08:40 Hct 38.4 % (41.0-60) L 10/28/17 08:40 MCV 89.2 fl (80-99) 10/28/17 08:40 MCH 29.4 pg (27.0-31.0) 10/28/17 08:40 MCHC Differential 33.0 pg (28.0-36.0) 10/28/17 08:40 RDW 16.5 % (11.5-20.0) 10/28/17 08:40 Plt Count 264 Th/cmm (150-400) 10/28/17 08:40 MPV 8.6 fl 10/28/17 08:40 Neutrophils % 66.2 % (40.0-80.0) 10/28/17 08:40 Lymphocytes % 26.6 % (20.0-50.0) 10/28/17 08:40 Monocytes % 5.9 % (2.0-10.0) 10/28/17 08:40 Eosinophils % 0.7 % (0.0-5.0) 10/28/17 08:40 Basophils % 0.6 % (0.0-2.0) 10/28/17 08:40 Eos Smear Source URINE 10/15/17 03:00 Eos Smear Total Cells FEW EOSINOPHILS SEEN (NONE SEEN) 10/15/17 03:00 PT 10.5 SECONDS (9.5-11.5) 10/14/17 06:00 INR 1.01 (0.5-1.4) 10/14/17 06:00 PTT (Actin FS) 25.3 SECONDS (26.0-38.0) L 10/14/17 06:00 Sodium 137 mEq/L (136-145) 10/28/17 08:40 Potassium 3.9 mEq/L (3.5-5.1) 10/28/17 08:40 Chloride 103 mEq/L (98-107) 10/28/17 08:40 Carbon Dioxide 22.0 mEq/L (21.0-31.0) 10/28/17 08:40 Anion Gap 15.9 (7.0-16.0) 10/28/17 08:40 BUN 17 mg/dL (7-25) 10/28/17 08:40 Creatinine 1.1 mg/dL (0.7-1.3) 10/28/17 08:40 Est GFR ( Amer) TNP 10/28/17 08:40 Est GFR (Non-Af Amer) TNP 10/28/17 08:40 BUN/Creatinine Ratio 15.5 10/28/17 08:40 Glucose 191 mg/dL (70-105) H 10/28/17 08:40 POC Glucose 172 MG/DL (70 - 105) H 10/29/17 12:01 Hemoglobin A1c % 10.5 % (4.0-6.0) H 10/14/17 05:26 Uric Acid 5.6 mg/dL (4.4-7.6) 10/20/17 09:10 Calcium 8.9 mg/dL (8.6-10.3) 10/28/17 08:40 Phosphorus 4.1 mg/dL (2.5-5.0) 10/14/17 06:00 Magnesium 2.0 mg/dL (1.9-2.7) 10/22/17 05:05 Total Bilirubin 0.7 mg/dL (0.3-1.0) 10/28/17 08:40 AST 18 U/L (13-39) 10/28/17 08:40 ALT 16 U/L (7-52) 10/28/17 08:40 Alkaline Phosphatase 67 U/L (34-104) 10/28/17 08:40 Total Protein 6.8 gm/dL (6.0-8.3) 10/28/17 08:40 Albumin 3.0 gm/dL (4.2-5.5) L 10/28/17 08:40 Globulin 3.8 gm/dL 10/28/17 08:40 Albumin/Globulin Ratio 0.8 (1.0-1.8) L 10/28/17 08:40 TSH 0.28 uIU/ml (0.34-5.60) L 10/14/17 06:00 Urine Source [place]RE [place] 10/28/17 14:00 Urine Color ORANGE 10/28/17 14:00 Urine Clarity CLOUDY (CLEAR) 10/28/17 14:00 Urine pH 5.5 (4.6 - 8.0) 10/28/17 14:00 Ur Specific [place] >= 1.030 (1.005-1.030) 10/28/17 14:00 Urine Protein 30 mg/dL (NEGATIVE) H 10/28/17 14:00 Urine Glucose (UA) NEGATIVE mg/dL (NEGATIVE) 10/28/17 14:00 Urine Ketones TRACE mg/dL (NEGATIVE) 10/28/17 14:00 Urine Blood MODERATE (NEGATIVE) H 10/28/17 14:00 Urine Nitrate NEGATIVE (NEGATIVE) 10/28/17 14:00 Urine Bilirubin MODERATE (NEGATIVE) H 10/28/17 14:00 Urine Ictotest NEGATIVE (NEGATIVE) 10/15/17 03:00 Urine Urobilinogen 1.0 E.U./dL (0.2 - 1.0) 10/28/17 14:00 Ur Leukocyte Esterase SMALL (NEGATIVE) H 10/28/17 14:00 Urine RBC 10-25 /hpf (0-5) H 10/28/17 14:00 Urine WBC 6-10 /hpf (0-5) 10/28/17 14:00 Ur Epithelial Cells FEW /lpf (FEW) 10/28/17 14:00 Urine Bacteria FEW /hpf (NONE SEEN) 10/28/17 14:00 Urine Yeast MANY /hpf (NONE SEEN) H 10/28/17 14:00 Urine Osmolality 749 mOsmol/kg 10/15/17 03:00 Ur Random Sodium 39 mmol/L 10/15/17 03:00 Urine Creatinine 136.0 mg/dl (39.0-259.0) 10/15/17 03:00 - Physical Exam Vitals and I&O: Vital Signs Temp 98.0 F 10/29/17 08:00 Pulse 118 10/29/17 08:00 Resp 20 10/29/17 08:00 BP 149/93 10/29/17 08:00 Pulse Ox 98 03/14/18 08:00 Intake & Output 10/28/17 10/29/17 10/29/17 18:59 06:59 18:59 Intake Total 600 120 Output Total 400 Balance 200 120 Weight (lbs) 77.111 kg 77.111 kg Intake: Intake, IV Amount 100 Levofloxacin 500mg/100mL 100 500 mg In 100 ml @ 100 mls/hr IV Q24HR [facility] Rx#: [id number] Oral 500 120 Output: Urine 400 Other: # Voids 4 # Bowel Movements 2 Active Medications: Current Medications Acetaminophen (Tylenol) 650 mg PO Q6HR PRN PRN Reason: mild to moderate pain Stop: 12/11/17 19:27 Last Admin: 10/23/17 00:25 Dose: 650 mg Acetaminophen/Hydrocodone Bitart ([place] 5mg/325mg) 1 tab PO Q6H PRN PRN Reason: Pain (Moderate) Stop: 12/15/17 08:21 Last Admin: 10/22/17 21:26 Dose: 1 tab Allopurinol (Zyloprim) 100 mg PO DAILY [facility] Stop: 12/12/17 08:59 Last Admin: 10/29/17 10:03 Dose: Not Given [place] Oil/Spanish Balsam/Trypsin (Venelex) 1 appl TP DAILY IMMANUEL Stop: 12/12/17 15:59 Last Admin: 10/29/17 10:04 Dose: 1 appl Clonazepam (Klonopin) 1 mg PO BID IMMANUEL PRN Reason: Protocol Stop: 12/15/17 08:59 Last Admin: 10/29/17 10:03 Dose: 1 mg Famotidine (Pepcid) 20 mg PO BID IMMANUEL Stop: 12/12/17 08:59 Last Admin: 10/29/17 10:03 Dose: Not Given Heparin Sodium (Porcine) (Heparin) 5,000 units SUBQ Q12HR IMMANUEL PRN Reason: Protocol Stop: 12/11/17 20:59 Last Admin: 10/29/17 10:03 Dose: Not Given Insulin Aspart (Novolog Insulin Sliding Scale) 0 units SUBQ ACHS IMMANUEL PRN Reason: Protocol Stop: 12/11/17 20:59 Last Admin: 10/29/17 12:03 Dose: Not Given Insulin Detemir (Levemir Insulin) 18 units SUBQ DAILY IMMANUEL PRN Reason: Protocol Stop: 12/23/17 08:13 Last Admin: 10/29/17 10:03 Dose: Not Given Levofloxacin (Levaquin) 500 mg PO DAILY IMMANUEL Stop: 11/05/17 08:59 Last Admin: 10/29/17 10:02 Dose: 500 mg Lorazepam (Ativan) 0.5 mg PO Q6HR PRN; Protocol PRN Reason: agitation Stop: 12/11/17 19:27 Last Admin: 10/29/17 10:02 Dose: 0.5 mg Magnesium Hydroxide (Milk Of Magnesia) 30 ml PO HS PRN PRN Reason: Constipation Stop: 12/11/17 19:27 Metoprolol Succinate (Toprol Xl) 25 mg PO BID IMMANUEL Stop: 12/12/17 16:59 Last Admin: 10/29/17 10:19 Dose: Not Given Olanzapine (Zyprexa Zydis) 12.5 mg PO BID IMMANUEL PRN Reason: Protocol Stop: 12/17/17 12:28 Last Admin: 10/29/17 10:19 Dose: Not Given Zolpidem Tartrate (Ambien) 5 mg PO HS PRN PRN Reason: insomnia Stop: 12/11/17 19:27 Last Admin: 10/26/17 21:25 Dose: 5 mg General: Alert, No acute distress HEENT: Atraumatic, PERRLA Neck: Supple Cardiovascular: Regular rate, Normal S1, Normal S2 Lungs: Clear to auscultation Abdomen: Bowel sounds, Soft Extremities: no Clubbing, no Cyanosis, no Edema Neurological: Sensation intact Skin: no Rash Psych/Mental Status: Mood NL - Procedures Procedures: Procedures Procedure Code Date JEWEL MUSC/FASCIA 20 SQ CM/< 42048 10/12/17 EXCISION OF RIGHT HIP MUSCLE, OPEN APPROACH [id number] 10/12/17 Assessment/Plan - Assessment Assessment: KEN on CKD Stage 4 decub ulcer S/P debridement Severe dehydration Ess HTN Type 2 DM Psychosis MSSA/Yeast UTI - Plan Plan: Lab - Result Diagrams 10/14/17 06:00 10/14/17 06:00 Current Medications Acetaminophen (Tylenol) 650 mg PO Q6HR PRN PRN Reason: mild to moderate pain Stop: 12/11/17 19:27 Allopurinol (Zyloprim) 100 mg PO DAILY IMMANUEL Stop: 12/12/17 08:59 Last Admin: 10/14/17 10:00 Dose: Not Given [place] Oil/Spanish Balsam/Trypsin (Venelex) 1 appl TP DAILY IMMANUEL Stop: 12/12/17 15:59 Last Admin: 10/14/17 10:00 Dose: 1 appl Famotidine (Pepcid) 20 mg PO BID [facility] Stop: 12/12/17 08:59 Last Admin: 10/14/17 18:22 Dose: 20 mg Heparin Sodium (Porcine) (Heparin) 5,000 units SUBQ Q12HR IMMANUEL PRN Reason: Protocol Stop: 12/11/17 20:59 Last Admin: 10/14/17 07:50 Dose: Not Given Ceftriaxone Sodium 1 gm/ (Sodium Chloride) 50 mls @ 100 mls/hr IV Q24HR MIMANUEL Stop: 12/11/17 16:44 Last Admin: 10/14/17 17:45 Dose: 100 mls/hr Insulin Aspart (Novolog Insulin Sliding Scale) 0 units SUBQ ACHS IMMANUEL PRN Reason: Protocol Stop: 12/11/17 20:59 Last Admin: 10/14/17 18:23 Dose: 6 units Lorazepam (Ativan) 0.5 mg PO Q6HR PRN; Protocol PRN Reason: agitation Stop: 12/11/17 19:27 Magnesium Hydroxide (Milk Of Magnesia) 30 ml PO HS PRN PRN Reason: Constipation Stop: 12/11/17 19:27 Metoprolol Succinate (Toprol Xl) 25 mg PO BID [facility] Stop: 12/12/17 16:59 Last Admin: 10/14/17 18:23 Dose: 25 mg Miscellaneous (Clinical Monitoring) 1 ea MC PRN PRN PRN Reason: RENAL Stop: 12/12/17 10:33 Olanzapine (Zyprexa Zydis) 5 mg PO BID IMMANUEL PRN Reason: Protocol Stop: 12/13/17 16:59 Zolpidem Tartrate (Ambien) 5 mg PO HS PRN PRN Reason: insomnia Stop: 12/11/17 Lab - Result Diagrams 10/28/17 08:40 10/28/17 08:40 Na down to 137 Kidney fnc gradually improving agree w/ Allopurinol f/u electrolytes, continue hydration BS better control increase Detemir replace K Urine grew MSSA, Yeast add Diflucan to Levaquin Nutritional Asmnt/Malnutr-PDOC - Dietary Evaluation Malnutrition Findings (Please click <Entered> for more info): Nutritional Asmnt/Malnutrition Start: 10/14/17 17: 10 Text: Status: Complete Freq: Document 10/14/17 17:13 GREY (Rec: 10/14/17 17:25 GREY [email or web address]) Nutritional Asmnt/Malnutrition Patient General Information Nutritional Screening High Risk Consult Diagnosis pressure ulcer, hyperglycemia, dehydration Pertinent Medical Hx/Surgical Hx DM, dementia, depression, psychosis, schizophrenia, chronic renal insuff Subjective Information Consult received for unstageble pressure ulcer on , high BG on 10/12. Per records, PO intake 50-75%. Pt was on NPO today for surgery- excisional debridement, application of wound VAC Current Diet Order/ Nutrition Support pureed, CCHO 60gm Pertinent Medications novolog Pertinent Labs 10/14 Na 152, K 4.6, BUN 56, Cr 1.8, Glucose 262, POC 236-246 , Mg 2.9 Nutritional Hx/Data Height 1.8 m Height (Calculated Centimeters) 180.3 Current Weight (lbs) 70.76 kg Weight (Calculated Kilograms) 70.8 Weight (Calculated Grams) 56279.4 [place] Body Weight 172 % [place] Body Weight 91 Body Mass Index (BMI) 21.7 Weight Status Approriate GI Symptoms GI Symptoms None Last BM 10/13 Difficult in: None Skin Integrity/Comment: scar to right upper back, decubitus ulcer to buttocks Current %PO Fair (50-74%) Estimated Nutritional Goals BEE in Kcals: Using Current wt Calories/Kcals/Kg 27-32 Kcals Calculated 1764-4705 Protein: Using Current wt Protein g/k-1.2 Protein Calculated 71-85 Fluid: ml 1917-2130ml (1ml/kcal) Nutritional Problem 2. Problem Problem altered nutrition related lab values Etiology hx of DM Signs/Symptoms: Glucose 262, POC 236-246 1. Problem Problem increased nutrition needs ( calorie and protein) Etiology increased metabolic demand for wound healing Signs/Symptoms: decubitus ulcer and surgery Intervention/Recommendation Comments 1. Continue with current diet as ordered. If PO intake low, will consider nutrition supplements 2. MD to consider vit C and zinc for wound healing 3. Monitor PO intake, wt, labs and skin integrity 4. F/U as moderate risk in 3-5 days, /2-3/4, PO check 3/2 Expected Outcomes/Goals Expected Outcomes/Goals 1. PO intake to meet at least 75% of nutritional needs. 2. Wt stability, skin to remain intact, labs to approach WNL.
[2017-10-29] MEDS: Hydrocodone/APAP 5mg/325mg Tab PO PRN (15:59)
--- NOTE | 2017-10-30 08:25 | General Progress Note ---
Subjective - Review of Systems Service Date: 10/30/17 Subjective: Patient is awake and alert. no acute distress. patient eating fine. Irritable. Patient blood sugar stable. continue levemir 18u Daily. Urine + Staph Aureas sensitive to Levofloxacin. Objective - Results Result Diagrams: 10/28/17 08:40 10/28/17 08:40 Recent Labs: Laboratory Last Values WBC 6.2 Th/cmm (4.8-10.8) 10/28/17 08:40 RBC 4.30 Mil/cmm (3.80-5.80) 10/28/17 08:40 Hgb 12.7 gm/dL (12-16) 10/28/17 08:40 Hct 38.4 % (41.0-60) L 10/28/17 08:40 MCV 89.2 fl (80-99) 10/28/17 08:40 MCH 29.4 pg (27.0-31.0) 10/28/17 08:40 MCHC Differential 33.0 pg (28.0-36.0) 10/28/17 08:40 RDW 16.5 % (11.5-20.0) 10/28/17 08:40 Plt Count 264 Th/cmm (150-400) 10/28/17 08:40 MPV 8.6 fl 10/28/17 08:40 Neutrophils % 66.2 % (40.0-80.0) 10/28/17 08:40 Lymphocytes % 26.6 % (20.0-50.0) 10/28/17 08:40 Monocytes % 5.9 % (2.0-10.0) 10/28/17 08:40 Eosinophils % 0.7 % (0.0-5.0) 10/28/17 08:40 Basophils % 0.6 % (0.0-2.0) 10/28/17 08:40 Eos Smear Source URINE 10/15/17 03:00 Eos Smear Total Cells FEW EOSINOPHILS SEEN (NONE SEEN) 10/15/17 03:00 PT 10.5 SECONDS (9.5-11.5) 10/14/17 06:00 INR 1.01 (0.5-1.4) 10/14/17 06:00 PTT (Actin FS) 25.3 SECONDS (26.0-38.0) L 10/14/17 06:00 Sodium 137 mEq/L (136-145) 10/28/17 08:40 Potassium 3.9 mEq/L (3.5-5.1) 10/28/17 08:40 Chloride 103 mEq/L (98-107) 10/28/17 08:40 Carbon Dioxide 22.0 mEq/L (21.0-31.0) 10/28/17 08:40 Anion Gap 15.9 (7.0-16.0) 10/28/17 08:40 BUN 17 mg/dL (7-25) 10/28/17 08:40 Creatinine 1.1 mg/dL (0.7-1.3) 10/28/17 08:40 Est GFR ( Amer) TNP 10/28/17 08:40 Est GFR (Non-Af Amer) TNP 10/28/17 08:40 BUN/Creatinine Ratio 15.5 10/28/17 08:40 Glucose 191 mg/dL (70-105) H 10/28/17 08:40 POC Glucose 155 MG/DL (70 - 105) H 10/30/17 06:03 Hemoglobin A1c % 10.5 % (4.0-6.0) H 10/14/17 05:26 Uric Acid 5.6 mg/dL (4.4-7.6) 10/20/17 09:10 Calcium 8.9 mg/dL (8.6-10.3) 10/28/17 08:40 Phosphorus 4.1 mg/dL (2.5-5.0) 10/14/17 06:00 Magnesium 2.0 mg/dL (1.9-2.7) 10/22/17 05:05 Total Bilirubin 0.7 mg/dL (0.3-1.0) 10/28/17 08:40 AST 18 U/L (13-39) 10/28/17 08:40 ALT 16 U/L (7-52) 10/28/17 08:40 Alkaline Phosphatase 67 U/L (34-104) 10/28/17 08:40 Total Protein 6.8 gm/dL (6.0-8.3) 10/28/17 08:40 Albumin 3.0 gm/dL (4.2-5.5) L 10/28/17 08:40 Globulin 3.8 gm/dL 10/28/17 08:40 Albumin/Globulin Ratio 0.8 (1.0-1.8) L 10/28/17 08:40 TSH 0.28 uIU/ml (0.34-5.60) L 10/14/17 06:00 Urine Source ANDRE PORT 10/28/17 14:00 Urine Color ORANGE 10/28/17 14:00 Urine Clarity CLOUDY (CLEAR) 10/28/17 14:00 Urine pH 5.5 (4.6 - 8.0) 10/28/17 14:00 Ur Specific [place] >= 1.030 (1.005-1.030) 10/28/17 14:00 Urine Protein 30 mg/dL (NEGATIVE) H 10/28/17 14:00 Urine Glucose (UA) NEGATIVE mg/dL (NEGATIVE) 10/28/17 14:00 Urine Ketones TRACE mg/dL (NEGATIVE) 10/28/17 14:00 Urine Blood MODERATE (NEGATIVE) H 10/28/17 14:00 Urine Nitrate NEGATIVE (NEGATIVE) 10/28/17 14:00 Urine Bilirubin MODERATE (NEGATIVE) H 10/28/17 14:00 Urine Ictotest NEGATIVE (NEGATIVE) 10/15/17 03:00 Urine Urobilinogen 1.0 E.U./dL (0.2 - 1.0) 10/28/17 14:00 Ur Leukocyte Esterase SMALL (NEGATIVE) H 10/28/17 14:00 Urine RBC 10-25 /hpf (0-5) H 10/28/17 14:00 Urine WBC 6-10 /hpf (0-5) 10/28/17 14:00 Ur Epithelial Cells FEW /lpf (FEW) 10/28/17 14:00 Urine Bacteria FEW /hpf (NONE SEEN) 10/28/17 14:00 Urine Yeast MANY /hpf (NONE SEEN) H 10/28/17 14:00 Urine Osmolality 749 mOsmol/kg 10/15/17 03:00 Ur Random Sodium 39 mmol/L 10/15/17 03:00 Urine Creatinine 136.0 mg/dl (39.0-259.0) 10/15/17 03:00 - Physical Exam Vitals and I&O: Vital Signs Temp 97.0 F 10/30/17 04:00 Pulse 103 10/30/17 04:00 Resp 18 10/30/17 04:00 BP 140/84 10/30/17 04:00 Pulse Ox 97 10/30/17 04:00 Intake & Output 10/29/17 10/30/17 10/30/17 18:59 06:59 18:59 Intake Total 800 Output Total 400 500 Balance 400 -500 Weight (lbs) 77.111 kg 77.111 kg Intake: Oral 800 Output: Urine 400 500 Other: # Bowel Movements 1 1 Active Medications: Current Medications Acetaminophen (Tylenol) 650 mg PO Q6HR PRN PRN Reason: mild to moderate pain Stop: 12/11/17 19:27 Last Admin: 10/23/17 00:25 Dose: 650 mg Acetaminophen/Hydrocodone Bitart ([place] 5mg/325mg) 1 tab PO Q6H PRN PRN Reason: Pain (Moderate) Stop: 12/15/17 08:21 Last Admin: 10/29/17 15:59 Dose: 1 tab Allopurinol (Zyloprim) 100 mg PO DAILY [facility] Stop: 12/12/17 08:59 Last Admin: 10/29/17 10:03 Dose: Not Given [place] Oil/[place] Balsam/Trypsin (Venelex) 1 appl TP DAILY [facility] Stop: 12/12/17 15:59 Last Admin: 10/29/17 10:04 Dose: 1 appl Clonazepam (Klonopin) 1 mg PO BID IMMANUEL PRN Reason: Protocol Stop: 12/15/17 08:59 Last Admin: 10/29/17 15:59 Dose: 1 mg Famotidine (Pepcid) 20 mg PO BID IMMANUEL Stop: 12/12/17 08:59 Last Admin: 10/29/17 16:21 Dose: Not Given Fluconazole (Diflucan) 100 mg PO DAILY I[facility] Stop: 12/29/17 08:59 Heparin Sodium (Porcine) (Heparin) 5,000 units SUBQ Q12HR IMMANUEL PRN Reason: Protocol Stop: 12/11/17 20:59 Last Admin: 10/29/17 21:21 Dose: 5,000 units Insulin Aspart (Novolog Insulin Sliding Scale) 0 units SUBQ ACHS IMM[facility]UEL PRN Reason: Protocol Stop: 12/11/17 20:59 Last Admin: 10/29/17 21:20 Dose: 4 units Insulin Detemir (Levemir Insulin) 18 units SUBQ DAILY I[facility] PRN Reason: Protocol Stop: 12/23/17 08:13 Last Admin: 10/29/17 10:03 Dose: Not Given Levofloxacin (Levaquin) 500 mg PO DAILY I[facility] Stop: 11/05/17 08:59 Last Admin: 10/29/17 10:02 Dose: 500 mg Lorazepam (Ativan) 0.5 mg PO Q6HR PRN; Protocol PRN Reason: agitation Stop: 12/11/17 19:27 Last Admin: 10/29/17 15:59 Dose: 0.5 mg Magnesium Hydroxide (Milk Of Magnesia) 30 ml PO HS PRN PRN Reason: Constipation Stop: 12/11/17 19:27 Metoprolol Succinate (Toprol Xl) 25 mg PO BID IMMANUEL Stop: 12/12/17 16:59 Last Admin: 10/29/17 15:59 Dose: 25 mg Olanzapine (Zyprexa Zydis) 15 mg PO BID IMMANUEL PRN Reason: Protocol Stop: 12/29/17 06:50 Zolpidem Tartrate (Ambien) 5 mg PO HS PRN PRN Reason: insomnia Stop: 12/11/17 19:27 Last Admin: 10/26/17 21:25 Dose: 5 mg General: Alert, No acute distress HEENT: Atraumatic, PERRLA Neck: Supple Cardiovascular: Regular rate, Normal S1, Normal S2 Lungs: Clear to auscultation Abdomen: Bowel sounds, Soft Extremities: no Clubbing, no Cyanosis, no Edema Neurological: Sensation intact Skin: no Rash Psych/Mental Status: Mood NL - Procedures Procedures: Procedures Procedure Code Date JEWEL MUSC/FASCIA 20 SQ CM/< 79469 10/12/17 EXCISION OF RIGHT HIP MUSCLE, OPEN APPROACH [id number] 10/12/17 Assessment/Plan - Assessment Assessment: Sacral stage III decubitus ulcer, infected. Diabetes mellitus type Depression. psychosis. Hematuria. hypernatremia resolved prerenal azotemia improved. hyperglycemia ... stable depression/anxiety gout ... on allopurinol. check uric acid level dementia schizophrenia S/P wound debridement of sacral decubitus ... continue wound care treatment. UTI +Staph Aureus sensitive to Levofloxacin KNE on CKD ... resolved. hyperkalemia resolved. discharge planning. - Plan Plan: will order cmp this AM renal consult -- Dr. Sharp sacral decubitus ... will order Gen Surgical consult -- Dr. Greene for possible wound debridement Gout ... continue allopurinol 100mg PO daily continue wound vac. continue hydrocodone PO for pain control. change Levofloxacin to PO discharge planning/placement Nutritional Asmnt/Malnutr-PDOC - Dietary Evaluation Malnutrition Findings (Please click <Entered> for more info): Nutritional Asmnt/Malnutrition Start: 10/14/17 17: 10 Text: Status: Complete Freq: Document 10/14/17 17:13 [facility] (Rec: 10/14/17 [email or web address] Nutritional Asmnt/Malnutrition Patient General Information Nutritional Screening High Risk Consult Diagnosis pressure ulcer, hyperglycemia, dehydration Pertinent Medical Hx/Surgical Hx DM, dementia, depression, psychosis, schizophrenia, chronic renal insuff Subjective Information Consult received for unstageble pressure ulcer on , high BG on 10/12. Per records, PO intake 50-75%. Pt was on NPO today for surgery- excisional debridement, application of wound VAC Current Diet Order/ Nutrition Support pureed, CCHO 60gm Pertinent Medications novolog Pertinent Labs 10/14 Na 152, K 4.6, BUN 56, Cr 1.8, Glucose 262, POC 236-246 , Mg 2.9 Nutritional Hx/Data Height 1.8 m Height (Calculated Centimeters) 180.3 Current Weight (lbs) 70.76 kg Weight (Calculated Kilograms) 70.8 Weight (Calculated Grams) 46506.4 [place] Body Weight 172 % [place] Body Weight 91 Body Mass Index (BMI) 21.7 Weight Status Approriate GI Symptoms GI Symptoms None Last BM 10/13 Difficult in: None Skin Integrity/Comment: scar to right upper back, decubitus ulcer to buttocks Current %PO Fair (50-74%) Estimated Nutritional Goals BEE in Kcals: Using Current wt Calories/Kcals/Kg 27-32 Kcals Calculated 5538-8213 Protein: Using Current wt Protein g/k-1.2 Protein Calculated 71-85 Fluid: ml 1917-2130ml (1ml/kcal) Nutritional Problem 2. Problem Problem altered nutrition related lab values Etiology hx of DM Signs/Symptoms: Glucose 262, POC 236-246 1. Problem Problem increased nutrition needs ( calorie and protein) Etiology increased metabolic demand for wound healing Signs/Symptoms: decubitus ulcer and surgery Intervention/Recommendation Comments 1. Continue with current diet as ordered. If PO intake low, will consider nutrition supplements 2. MD to consider vit C and zinc for wound healing 3. Monitor PO intake, wt, labs and skin integrity 4. F/U as moderate risk in 3-5 days, 10/17-10/19, PO check / Expected Outcomes/Goals Expected Outcomes/Goals 1. PO intake to meet at least 75% of nutritional needs. 2. Wt stability, skin to remain intact, labs to approach WNL.
--- NOTE | 2017-10-30 10:32 | Progress Notes ---
DATE: SUBJECTIVE: Chart reviewed and the patient interviewed. Also discussed the patient's condition with the staff and reviewed records and labs. The patient is still having episodes of agitation and irritability. The patient also did not sleep most of last night and according to staff, he was kicking and trying to hit others. The patient also is still easily agitated. Otherwise, the patient is compliant with taking his medications with no side effects of medications. ASSESSMENT: The patient is still agitated and still needs close monitoring. TREATMENT PLAN: Continue to monitor his behavior and his condition closely. Also, we will increase Zyprexa to 15 mg twice a day and we will continue to follow up closely. [facility]# [id number]
[2017-10-30] MEDS: Insulin Detemir 100 units/mL 10mL Vial SUBQ SCH (11:14)
--- NOTE | 2017-10-30 14:46 | General Progress Note ---
Subjective - Review of Systems Service Date: 10/30/17 Subjective: alert, comfortable, periods of confusion Objective - Results Result Diagrams: 10/28/17 08:40 10/28/17 08:40 Recent Labs: Laboratory Last Values WBC 6.2 Th/cmm (4.8-10.8) 10/28/17 08:40 RBC 4.30 Mil/cmm (3.80-5.80) 10/28/17 08:40 Hgb 12.7 gm/dL (12-16) 10/28/17 08:40 Hct 38.4 % (41.0-60) L 10/28/17 08:40 MCV 89.2 fl (80-99) 10/28/17 08:40 MCH 29.4 pg (27.0-31.0) 10/28/17 08:40 MCHC Differential 33.0 pg (28.0-36.0) 10/28/17 08:40 RDW 16.5 % (11.5-20.0) 10/28/17 08:40 Plt Count 264 Th/cmm (150-400) 10/28/17 08:40 MPV 8.6 fl 10/28/17 08:40 Neutrophils % 66.2 % (40.0-80.0) 10/28/17 08:40 Lymphocytes % 26.6 % (20.0-50.0) 10/28/17 08:40 Monocytes % 5.9 % (2.0-10.0) 10/28/17 08:40 Eosinophils % 0.7 % (0.0-5.0) 10/28/17 08:40 Basophils % 0.6 % (0.0-2.0) 10/28/17 08:40 Eos Smear Source URINE 10/15/17 03:00 Eos Smear Total Cells FEW EOSINOPHILS SEEN (NONE SEEN) 10/15/17 03:00 PT 10.5 SECONDS (9.5-11.5) 10/14/17 06:00 INR 1.01 (0.5-1.4) 10/14/17 06:00 PTT (Actin FS) 25.3 SECONDS (26.0-38.0) L 10/14/17 06:00 Sodium 137 mEq/L (136-145) 10/28/17 08:40 Potassium 3.9 mEq/L (3.5-5.1) 10/28/17 08:40 Chloride 103 mEq/L (98-107) 10/28/17 08:40 Carbon Dioxide 22.0 mEq/L (21.0-31.0) 10/28/17 08:40 Anion Gap 15.9 (7.0-16.0) 10/28/17 08:40 BUN 17 mg/dL (7-25) 10/28/17 08:40 Creatinine 1.1 mg/dL (0.7-1.3) 10/28/17 08:40 Est GFR ( Amer) TNP 10/28/17 08:40 Est GFR (Non-Af Amer) TNP 10/28/17 08:40 BUN/Creatinine Ratio 15.5 10/28/17 08:40 Glucose 191 mg/dL (70-105) H 10/28/17 08:40 POC Glucose 155 MG/DL (70 - 105) H 10/30/17 06:03 Hemoglobin A1c % 10.5 % (4.0-6.0) H 10/14/17 05:26 Uric Acid 5.6 mg/dL (4.4-7.6) 10/20/17 09:10 Calcium 8.9 mg/dL (8.6-10.3) 10/28/17 08:40 Phosphorus 4.1 mg/dL (2.5-5.0) 10/14/17 06:00 Magnesium 2.0 mg/dL (1.9-2.7) 10/22/17 05:05 Total Bilirubin 0.7 mg/dL (0.3-1.0) 10/28/17 08:40 AST 18 U/L (13-39) 10/28/17 08:40 ALT 16 U/L (7-52) 10/28/17 08:40 Alkaline Phosphatase 67 U/L (34-104) 10/28/17 08:40 Total Protein 6.8 gm/dL (6.0-8.3) 10/28/17 08:40 Albumin 3.0 gm/dL (4.2-5.5) L 10/28/17 08:40 Globulin 3.8 gm/dL 10/28/17 08:40 Albumin/Globulin Ratio 0.8 (1.0-1.8) L 10/28/17 08:40 TSH 0.28 uIU/ml (0.34-5.60) L 10/14/17 06:00 Urine Source [place]RE [place] 10/28/17 14:00 Urine Color ORANGE 10/28/17 14:00 Urine Clarity CLOUDY (CLEAR) 10/28/17 14:00 Urine pH 5.5 (4.6 - 8.0) 10/28/17 14:00 Ur Specific [place] >= 1.030 (1.005-1.030) 10/28/17 14:00 Urine Protein 30 mg/dL (NEGATIVE) H 10/28/17 14:00 Urine Glucose (UA) NEGATIVE mg/dL (NEGATIVE) 10/28/17 14:00 Urine Ketones TRACE mg/dL (NEGATIVE) 10/28/17 14:00 Urine Blood MODERATE (NEGATIVE) H 10/28/17 14:00 Urine Nitrate NEGATIVE (NEGATIVE) 10/28/17 14:00 Urine Bilirubin MODERATE (NEGATIVE) H 10/28/17 14:00 Urine Ictotest NEGATIVE (NEGATIVE) 10/15/17 03:00 Urine Urobilinogen 1.0 E.U./dL (0.2 - 1.0) 10/28/17 14:00 Ur Leukocyte Esterase SMALL (NEGATIVE) H 10/28/17 14:00 Urine RBC 10-25 /hpf (0-5) H 10/28/17 14:00 Urine WBC 6-10 /hpf (0-5) 10/28/17 14:00 Ur Epithelial Cells FEW /lpf (FEW) 10/28/17 14:00 Urine Bacteria FEW /hpf (NONE SEEN) 10/28/17 14:00 Urine Yeast MANY /hpf (NONE SEEN) H 10/28/17 14:00 Urine Osmolality 749 mOsmol/kg 10/15/17 03:00 Ur Random Sodium 39 mmol/L 10/15/17 03:00 Urine Creatinine 136.0 mg/dl (39.0-259.0) 10/15/17 03:00 - Physical Exam Vitals and I&O: Vital Signs Temp 97.0 F 10/30/17 04:00 Pulse 103 10/30/17 04:00 Resp 18 10/30/17 08:00 BP 140/84 10/30/17 04:00 Pulse Ox 97 10/30/17 04:00 Intake & Output 10/29/17 10/30/17 10/30/17 18:59 06:59 18:59 Intake Total 800 Output Total 400 500 Balance 400 -500 Weight (lbs) 77.111 kg 77.111 kg Intake: Oral 800 Output: Urine 400 500 Other: # Bowel Movements 1 1 Active Medications: Current Medications Acetaminophen (Tylenol) 650 mg PO Q6HR PRN PRN Reason: mild to moderate pain Stop: 12/11/17 19:27 Last Admin: 10/23/17 00:25 Dose: 650 mg Acetaminophen/Hydrocodone Bitart ([place] 5mg/325mg) 1 tab PO Q6H PRN PRN Reason: Pain (Moderate) Stop: 12/15/17 08:21 Last Admin: 10/29/17 15:59 Dose: 1 tab Allopurinol (Zyloprim) 100 mg PO DAILY [facility] Stop: 12/12/17 08:59 Last Admin: 10/30/17 11:12 Dose: Not Given [place] Oil/[place] Balsam/Trypsin (Venelex) 1 appl TP DAILY [facility] Stop: 12/12/17 15:59 Last Admin: 10/29/17 10:04 Dose: 1 appl Clonazepam (Klonopin) 1 mg PO BID IMMANUEL PRN Reason: Protocol Stop: 12/15/17 08:59 Last Admin: 10/30/17 11:12 Dose: Not Given Famotidine (Pepcid) 20 mg PO BID [facility] Stop: 12/12/17 08:59 Last Admin: 10/30/17 11:13 Dose: Not Given Fluconazole (Diflucan) 100 mg PO DAILY [facility] Stop: 12/29/17 08:59 Last Admin: 10/30/17 11:13 Dose: Not Given Heparin Sodium (Porcine) (Heparin) 5,000 units SUBQ Q12HR IMMANUEL PRN Reason: Protocol Stop: 12/11/17 20:59 Last Admin: 10/30/17 11:13 Dose: Not Given Levofloxacin (Levaquin Pb) 500 mg in 100 mls @ 100 mls/hr IV Q24HR [facility] Stop: 12/29/17 14:44 Insulin Aspart (Novolog Insulin Sliding Scale) 0 units SUBQ ACHS IMMANUEL PRN Reason: Protocol Stop: 12/11/17 20:59 Last Admin: 10/29/17 21:20 Dose: 4 units Insulin Detemir (Levemir Insulin) 18 units SUBQ DAILY IMMANUEL PRN Reason: Protocol Stop: 12/23/17 08:13 Last Admin: 10/30/17 11:14 Dose: Not Given Lorazepam (Ativan) 0.5 mg PO Q6HR PRN; Protocol PRN Reason: agitation Stop: 12/11/17 19:27 Last Admin: 10/29/17 15:59 Dose: 0.5 mg Magnesium Hydroxide (Milk Of Magnesia) 30 ml PO HS PRN PRN Reason: Constipation Stop: 12/11/17 19:27 Metoprolol Succinate (Toprol Xl) 25 mg PO BID IMMANUEL Stop: 12/12/17 16:59 Last Admin: 10/29/17 15:59 Dose: 25 mg Olanzapine (Zyprexa Zydis) 15 mg PO BID IMMANUEL PRN Reason: Protocol Stop: 12/29/17 06:50 Zolpidem Tartrate (Ambien) 5 mg PO HS PRN PRN Reason: insomnia Stop: 12/11/17 19:27 Last Admin: 10/26/17 21:25 Dose: 5 mg General: Alert, No acute distress HEENT: Atraumatic, PERRLA Neck: Supple Cardiovascular: Regular rate, Normal S1, Normal S2 Lungs: Clear to auscultation Abdomen: Bowel sounds, Soft Extremities: no Clubbing, no Cyanosis, no Edema Neurological: Sensation intact Skin: no Rash Psych/Mental Status: Mood NL - Procedures Procedures: Procedures Procedure Code Date JEWEL MUSC/FASCIA 20 SQ CM/< 49754 10/12/17 EXCISION OF RIGHT HIP MUSCLE, OPEN APPROACH [id number] 10/12/17 Assessment/Plan - Assessment Assessment: KEN on CKD Stage 4 decub ulcer S/P debridement Severe dehydration Ess HTN Type 2 DM Psychosis MSSA/Yeast UTI - Plan Plan: Lab - Result Diagrams 10/14/17 06:00 10/14/17 06:00 Current Medications Acetaminophen (Tylenol) 650 mg PO Q6HR PRN PRN Reason: mild to moderate pain Stop: 12/11/17 19:27 Allopurinol (Zyloprim) 100 mg PO DAILY IMMANUEL Stop: 12/12/17 08:59 Last Admin: 10/14/17 10:00 Dose: Not Given [place] Oil/[place]ese Balsam/Trypsin (Venelex) 1 appl TP DAILY [facility] Stop: 12/12/17 15:59 Last Admin: 10/14/17 10:00 Dose: 1 appl Famotidine (Pepcid) 20 mg PO BID IMMANUEL Stop: 12/12/17 08:59 Last Admin: 10/14/17 18:22 Dose: 20 mg Heparin Sodium (Porcine) (Heparin) 5,000 units SUBQ Q12HR IMMANUEL PRN Reason: Protocol Stop: 12/11/17 20:59 Last Admin: 10/14/17 07:50 Dose: Not Given Ceftriaxone Sodium 1 gm/ (Sodium Chloride) 50 mls @ 100 mls/hr IV Q24HR IMMANUEL Stop: 12/11/17 16:44 Last Admin: 10/14/17 17:45 Dose: 100 mls/hr Insulin Aspart (Novolog Insulin Sliding Scale) 0 units SUBQ ACHS IMMANUEL PRN Reason: Protocol Stop: 12/11/17 20:59 Last Admin: 10/14/17 18:23 Dose: 6 units Lorazepam (Ativan) 0.5 mg PO Q6HR PRN; Protocol PRN Reason: agitation Stop: 12/11/17 19:27 Magnesium Hydroxide (Milk Of Magnesia) 30 ml PO HS PRN PRN Reason: Constipation Stop: 12/11/17 19:27 Metoprolol Succinate (Toprol Xl) 25 mg PO BID [facility] Stop: 12/12/17 16:59 Last Admin: 10/14/17 18:23 Dose: 25 mg Miscellaneous (Clinical Monitoring) 1 ea MC PRN PRN PRN Reason: RENAL Stop: 12/12/17 10:33 Olanzapine (Zyprexa Zydis) 5 mg PO BID IMMANUEL PRN Reason: Protocol Stop: 12/13/17 16:59 Zolpidem Tartrate (Ambien) 5 mg PO HS PRN PRN Reason: insomnia Stop: 12/11/17 Lab - Result Diagrams 10/28/17 08:40 10/28/17 08:40 Na down to 137 Kidney fnc gradually improving agree w/ Allopurinol f/u electrolytes, continue hydration BS better control increase Detemir replace K Urine grew MSSA, Yeast add Diflucan to Levaquin placement in progress Nutritional Asmnt/Malnutr-PDOC - Dietary Evaluation Malnutrition Findings (Please click <Entered> for more info): Nutritional Asmnt/Malnutrition Start: 10/14/17 17: 10 Text: Status: Complete Freq: Document 10/14/17 17:13 [facility] (Rec: 10/14/17 17:25 [email or web address]) Nutritional Asmnt/Malnutrition Patient General Information Nutritional Screening High Risk Consult Diagnosis pressure ulcer, hyperglycemia, dehydration Pertinent Medical Hx/Surgical Hx DM, dementia, depression, psychosis, schizophrenia, chronic renal insuff Subjective Information Consult received for unstageble pressure ulcer on , high BG on 10/12. Per records, PO intake 50-75%. Pt was on NPO today for surgery- excisional debridement, application of wound VAC Current Diet Order/ Nutrition Support pureed, CCHO 60gm Pertinent Medications novolog Pertinent Labs 10/14 Na 152, K 4.6, BUN 56, Cr 1.8, Glucose 262, POC 236-246 , Mg 2.9 Nutritional Hx/Data Height 1.8 m Height (Calculated Centimeters) 180.3 Current Weight (lbs) 70.76 kg Weight (Calculated Kilograms) 70.8 Weight (Calculated Grams) 29008.4 [place] Body Weight 172 % [place] Body Weight 91 Body Mass Index (BMI) 21.7 Weight Status Approriate GI Symptoms GI Symptoms None Last BM 10/13 Difficult in: None Skin Integrity/Comment: scar to right upper back, decubitus ulcer to buttocks Current %PO Fair (50-74%) Estimated Nutritional Goals BEE in Kcals: Using Current wt Calories/Kcals/Kg 27-32 Kcals Calculated 6915-8322 Protein: Using Current wt Protein g/k-1.2 Protein Calculated 71-85 Fluid: ml 1917-2130ml (1ml/kcal) Nutritional Problem 2. Problem Problem altered nutrition related lab values Etiology hx of DM Signs/Symptoms: Glucose 262, POC 236-246 1. Problem Problem increased nutrition needs ( calorie and protein) Etiology increased metabolic demand for wound healing Signs/Symptoms: decubitus ulcer and surgery Intervention/Recommendation Comments 1. Continue with current diet as ordered. If PO intake low, will consider nutrition supplements 2. MD to consider vit C and zinc for wound healing 3. Monitor PO intake, wt, labs and skin integrity 4. F/U as moderate risk in 3-5 days, 3/2-3/4, PO check 10/17 Expected Outcomes/Goals Expected Outcomes/Goals 1. PO intake to meet at least 75% of nutritional needs. 2. Wt stability, skin to remain intact, labs to approach WNL.
[2017-10-30] MEDS: INSULIN ASPART SLIDING SCALE 100 UNITS/ML UNIT SUBQ SCH ×3 (15:24→21:20)
[2017-10-30] MEDS: OLANZapine 5 mg Oral Disintegrating Tab PO SCH ×2 (15:25→18:20)
[2017-10-30] MEDS: Levofloxacin 500mg/100mL 500 MG/100 ML BAG IV SCH (15:48)
[2017-10-30] MEDS: Venelex 60gm Tube TP SCH (15:51)
--- NOTE | 2017-10-30 15:58 | Infectious Disease Prog Note ---
Infectious Disease Subjective - Review of Systems Service Date: 10/30/17 Subjective: no new change. Infectious Disease Objective - Results Result Diagrams: 10/28/17 08:40 10/28/17 08:40 Recent Labs: Laboratory Last Values WBC 6.2 Th/cmm (4.8-10.8) 10/28/17 08:40 RBC 4.30 Mil/cmm (3.80-5.80) 10/28/17 08:40 Hgb 12.7 gm/dL (12-16) 10/28/17 08:40 Hct 38.4 % (41.0-60) L 10/28/17 08:40 MCV 89.2 fl (80-99) 10/28/17 08:40 MCH 29.4 pg (27.0-31.0) 10/28/17 08:40 MCHC Differential 33.0 pg (28.0-36.0) 10/28/17 08:40 RDW 16.5 % (11.5-20.0) 10/28/17 08:40 Plt Count 264 Th/cmm (150-400) 10/28/17 08:40 MPV 8.6 fl 10/28/17 08:40 Neutrophils % 66.2 % (40.0-80.0) 10/28/17 08:40 Lymphocytes % 26.6 % (20.0-50.0) 10/28/17 08:40 Monocytes % 5.9 % (2.0-10.0) 10/28/17 08:40 Eosinophils % 0.7 % (0.0-5.0) 10/28/17 08:40 Basophils % 0.6 % (0.0-2.0) 10/28/17 08:40 Eos Smear Source URINE 10/15/17 03:00 Eos Smear Total Cells FEW EOSINOPHILS SEEN (NONE SEEN) 10/15/17 03:00 PT 10.5 SECONDS (9.5-11.5) 10/14/17 06:00 INR 1.01 (0.5-1.4) 10/14/17 06:00 PTT (Actin FS) 25.3 SECONDS (26.0-38.0) L 10/14/17 06:00 Sodium 137 mEq/L (136-145) 10/28/17 08:40 Potassium 3.9 mEq/L (3.5-5.1) 10/28/17 08:40 Chloride 103 mEq/L (98-107) 10/28/17 08:40 Carbon Dioxide 22.0 mEq/L (21.0-31.0) 10/28/17 08:40 Anion Gap 15.9 (7.0-16.0) 10/28/17 08:40 BUN 17 mg/dL (7-25) 10/28/17 08:40 Creatinine 1.1 mg/dL (0.7-1.3) 10/28/17 08:40 Est GFR ( Amer) TNP 10/28/17 08:40 Est GFR (Non-Af Amer) TNP 10/28/17 08:40 BUN/Creatinine Ratio 15.5 10/28/17 08:40 Glucose 191 mg/dL (70-105) H 10/28/17 08:40 POC Glucose 155 MG/DL (70 - 105) H 10/30/17 06:03 Hemoglobin A1c % 10.5 % (4.0-6.0) H 10/14/17 05:26 Uric Acid 5.6 mg/dL (4.4-7.6) 10/20/17 09:10 Calcium 8.9 mg/dL (8.6-10.3) 10/28/17 08:40 Phosphorus 4.1 mg/dL (2.5-5.0) 10/14/17 06:00 Magnesium 2.0 mg/dL (1.9-2.7) 10/22/17 05:05 Total Bilirubin 0.7 mg/dL (0.3-1.0) 10/28/17 08:40 AST 18 U/L (13-39) 10/28/17 08:40 ALT 16 U/L (7-52) 10/28/17 08:40 Alkaline Phosphatase 67 U/L (34-104) 10/28/17 08:40 Total Protein 6.8 gm/dL (6.0-8.3) 10/28/17 08:40 Albumin 3.0 gm/dL (4.2-5.5) L 10/28/17 08:40 Globulin 3.8 gm/dL 10/28/17 08:40 Albumin/Globulin Ratio 0.8 (1.0-1.8) L 10/28/17 08:40 TSH 0.28 uIU/ml (0.34-5.60) L 10/14/17 06:00 Urine Source [place]RE [place] 10/28/17 14:00 Urine Color ORANGE 10/28/17 14:00 Urine Clarity CLOUDY (CLEAR) 10/28/17 14:00 Urine pH 5.5 (4.6 - 8.0) 10/28/17 14:00 Ur Specific [place] >= 1.030 (1.005-1.030) 10/28/17 14:00 Urine Protein 30 mg/dL (NEGATIVE) H 10/28/17 14:00 Urine Glucose (UA) NEGATIVE mg/dL (NEGATIVE) 10/28/17 14:00 Urine Ketones TRACE mg/dL (NEGATIVE) 10/28/17 14:00 Urine Blood MODERATE (NEGATIVE) H 10/28/17 14:00 Urine Nitrate NEGATIVE (NEGATIVE) 10/28/17 14:00 Urine Bilirubin MODERATE (NEGATIVE) H 10/28/17 14:00 Urine Ictotest NEGATIVE (NEGATIVE) 10/15/17 03:00 Urine Urobilinogen 1.0 E.U./dL (0.2 - 1.0) 10/28/17 14:00 Ur Leukocyte Esterase SMALL (NEGATIVE) H 10/28/17 14:00 Urine RBC 10-25 /hpf (0-5) H 10/28/17 14:00 Urine WBC 6-10 /hpf (0-5) 10/28/17 14:00 Ur Epithelial Cells FEW /lpf (FEW) 10/28/17 14:00 Urine Bacteria FEW /hpf (NONE SEEN) 10/28/17 14:00 Urine Yeast MANY /hpf (NONE SEEN) H 10/28/17 14:00 Urine Osmolality 749 mOsmol/kg 10/15/17 03:00 Ur Random Sodium 39 mmol/L 10/15/17 03:00 Urine Creatinine 136.0 mg/dl (39.0-259.0) 10/15/17 03:00 - Physical Exam Vitals and I&O: Vital Signs Temp 97.0 F 10/30/17 04:00 Pulse 103 10/30/17 04:00 Resp 18 10/30/17 08:00 BP 140/84 10/30/17 04:00 Pulse Ox 97 10/30/17 04:00 Intake & Output 10/29/17 10/30/17 10/30/17 18:59 06:59 18:59 Intake Total 800 Output Total 400 500 Balance 400 -500 Weight (lbs) 77.111 kg 77.111 kg Intake: Oral 800 Output: Urine 400 500 Other: # Bowel Movements 1 1 Active Medications: Current Medications Acetaminophen (Tylenol) 650 mg PO Q6HR PRN PRN Reason: mild to moderate pain Stop: 12/11/17 19:27 Last Admin: 10/23/17 00:25 Dose: 650 mg Acetaminophen/Hydrocodone Bitart ([place] 5mg/325mg) 1 tab PO Q6H PRN PRN Reason: Pain (Moderate) Stop: 12/15/17 08:21 Last Admin: 10/29/17 15:59 Dose: 1 tab Allopurinol (Zyloprim) 100 mg PO DAILY [facility] Stop: 12/12/17 08:59 Last Admin: 10/30/17 11:12 Dose: Not Given [place] Oil/[place] Balsam/Trypsin (Venelex) 1 appl TP DAILY [facility] Stop: 12/12/17 15:59 Last Admin: 10/30/17 15:51 Dose: 1 appl Clonazepam (Klonopin) 1 mg PO BID [facility] PRN Reason: Protocol Stop: 12/15/17 08:59 Last Admin: 10/30/17 11:12 Dose: Not Given Famotidine (Pepcid) 20 mg PO BID [facility] Stop: 12/12/17 08:59 Last Admin: 10/30/17 11:13 Dose: Not Given Fluconazole (Diflucan) 100 mg PO DAILY [facility] Stop: 12/29/17 08:59 Last Admin: 10/30/17 11:13 Dose: Not Given Heparin Sodium (Porcine) (Heparin) 5,000 units SUBQ Q12HR [facility] PRN Reason: Protocol Stop: 12/11/17 20:59 Last Admin: 10/30/17 11:13 Dose: Not Given Levofloxacin (Levaquin Pb) 500 mg in 100 mls @ 100 mls/hr IV Q24HR [facility] Stop: 12/29/17 14:44 Last Admin: 10/30/17 15:48 Dose: 100 mls/hr Insulin Aspart (Novolog Insulin Sliding Scale) 0 units SUBQ ACHS [facility] PRN Reason: Protocol Stop: 12/11/17 20:59 Last Admin: 10/30/17 15:24 Dose: Not Given Insulin Detemir (Levemir Insulin) 18 units SUBQ DAILY [facility] PRN Reason: Protocol Stop: 12/23/17 08:13 Last Admin: 10/30/17 11:14 Dose: Not Given Lorazepam (Ativan) 0.5 mg PO Q6HR PRN; Protocol PRN Reason: agitation Stop: 12/11/17 19:27 Last Admin: 10/29/17 15:59 Dose: 0.5 mg Magnesium Hydroxide (Milk Of Magnesia) 30 ml PO HS PRN PRN Reason: Constipation Stop: 12/11/17 19:27 Metoprolol Succinate (Toprol Xl) 25 mg PO BID [facility] Stop: 12/12/17 16:59 Last Admin: 10/30/17 15:25 Dose: Not Given Olanzapine (Zyprexa Zydis) 15 mg PO BID [facility] PRN Reason: Protocol Stop: 12/29/17 06:50 Last Admin: 10/30/17 15:25 Dose: Not Given Zolpidem Tartrate (Ambien) 5 mg PO HS PRN PRN Reason: insomnia Stop: 12/11/17 19:27 Last Admin: 10/26/17 21:25 Dose: 5 mg General: no acute distress, well developed, well nourished HEENT: atraumatic, normocephalic, PERRLA, EOMI Neck: supple, no thyromegaly, no lymphadenopathy Cardiovascular: S1S2, regular Lungs: clear to auscultation bilaterally, clear to percussion Abdomen: soft, no tender, no distended Extremities: no cyanosis, no clubbing, no edema Neurological: awake, alert, oriented Skin: other (sacral stage 4 wound.) - Procedures Procedures: Procedures Procedure Code Date JEWEL MUSC/FASCIA 20 SQ CM/< 38468 10/12/17 EXCISION OF RIGHT HIP MUSCLE, OPEN APPROACH [id number] 10/12/17 Infectious Disease Assmt/Plan - Assessment Assessment: 1. Sacral stage III decubitus ulcer, infected. 2. Status post I&D. 3. Diabetes mellitus type . 4. Dementia. 5. Depression. 6. psychosis. 7. Schizophrenia. 8. candiduria. - Plan Plan: CPM. Start diflucan po for 7 days. dc levaquin. wound care. Nutritional Asmnt/Malnutr-PDOC - Dietary Evaluation Malnutrition Findings (Please click <Entered> for more info): Nutritional Asmnt/Malnutrition Start: 10/14/17 17: 10 Text: Status: Complete Freq: Document 10/14/17 17:13 GREY (Rec: 10/14/17 17:25 GREY [email or web address]) Nutritional Asmnt/Malnutrition Patient General Information Nutritional Screening High Risk Consult Diagnosis pressure ulcer, hyperglycemia, dehydration Pertinent Medical Hx/Surgical Hx DM, dementia, depression, psychosis, schizophrenia, chronic renal insuff Subjective Information Consult received for unstageble pressure ulcer on , high BG on 10/12. Per records, PO intake 50-75%. Pt was on NPO today for surgery- excisional debridement, application of wound VAC Current Diet Order/ Nutrition Support pureed, CCHO 60gm Pertinent Medications novolog Pertinent Labs 10/14 Na 152, K 4.6, BUN 56, Cr 1.8, Glucose 262, POC 236-246 , Mg 2.9 Nutritional Hx/Data Height 1.8 m Height (Calculated Centimeters) 180.3 Current Weight (lbs) 70.76 kg Weight (Calculated Kilograms) 70.8 Weight (Calculated Grams) 24903.4 [place] Body Weight 172 % [place] Body Weight 91 Body Mass Index (BMI) 21.7 Weight Status Approriate GI Symptoms GI Symptoms None Last BM 10/13 Difficult in: None Skin Integrity/Comment: scar to right upper back, decubitus ulcer to buttocks Current %PO Fair (50-74%) Estimated Nutritional Goals BEE in Kcals: Using Current wt Calories/Kcals/Kg 27-32 Kcals Calculated 4432-3686 Protein: Using Current wt Protein g/k-1.2 Protein Calculated 71-85 Fluid: ml 1917-2130ml (1ml/kcal) Nutritional Problem 2. Problem Problem altered nutrition related lab values Etiology hx of DM Signs/Symptoms: Glucose 262, POC 236-246 1. Problem Problem increased nutrition needs ( calorie and protein) Etiology increased metabolic demand for wound healing Signs/Symptoms: decubitus ulcer and surgery Intervention/Recommendation Comments 1. Continue with current diet as ordered. If PO intake low, will consider nutrition supplements 2. MD to consider vit C and zinc for wound healing 3. Monitor PO intake, wt, labs and skin integrity 4. F/U as moderate risk in 3-5 days, 3/2-3/4, PO check / Expected Outcomes/Goals Expected Outcomes/Goals 1. PO intake to meet at least 75% of nutritional needs. 2. Wt stability, skin to remain intact, labs to approach WNL.
[2017-10-31] MEDS: INSULIN ASPART SLIDING SCALE 100 UNITS/ML UNIT SUBQ SCH ×3 (07:30→18:36)
[2017-10-31] MEDS: OLANZapine 5 mg Oral Disintegrating Tab PO SCH ×2 (10:09→18:19)
[2017-10-31] MEDS: Venelex 60gm Tube TP SCH (10:09)
[2017-10-31] MEDS: Insulin Detemir 100 units/mL 10mL Vial SUBQ SCH (10:16)
--- NOTE | 2017-10-31 11:07 | Progress Notes ---
DATE: SUBJECTIVE: Chart reviewed and the patient interviewed. Also discussed the patient's condition with the staff and reviewed records and labs. The patient is still agitated, but seems to be less than before. The patient waved with me, greeting whenever he saw me and he was happier than yesterday. The patient also is able to follow directions and seems to be less agitated since I increased his Zyprexa to 15 mg twice a day. ASSESSMENT: The patient seems to be less psychotic and less agitated. TREATMENT PLAN: Continue Zyprexa same dose. Also, continue to monitor his behavior and continue to follow up. JOB# [id number]
--- NOTE | 2017-10-31 15:24 | General Progress Note ---
Subjective - Review of Systems Service Date: 10/31/17 Subjective: alert, comfortable, periods of confusion Objective - Results Result Diagrams: 10/28/17 08:40 10/28/17 08:40 Recent Labs: Laboratory Last Values WBC 6.2 Th/cmm (4.8-10.8) 10/28/17 08:40 RBC 4.30 Mil/cmm (3.80-5.80) 10/28/17 08:40 Hgb 12.7 gm/dL (12-16) 10/28/17 08:40 Hct 38.4 % (41.0-60) L 10/28/17 08:40 MCV 89.2 fl (80-99) 10/28/17 08:40 MCH 29.4 pg (27.0-31.0) 10/28/17 08:40 MCHC Differential 33.0 pg (28.0-36.0) 10/28/17 08:40 RDW 16.5 % (11.5-20.0) 10/28/17 08:40 Plt Count 264 Th/cmm (150-400) 10/28/17 08:40 MPV 8.6 fl 10/28/17 08:40 Neutrophils % 66.2 % (40.0-80.0) 10/28/17 08:40 Lymphocytes % 26.6 % (20.0-50.0) 10/28/17 08:40 Monocytes % 5.9 % (2.0-10.0) 10/28/17 08:40 Eosinophils % 0.7 % (0.0-5.0) 10/28/17 08:40 Basophils % 0.6 % (0.0-2.0) 10/28/17 08:40 Eos Smear Source URINE 10/15/17 03:00 Eos Smear Total Cells FEW EOSINOPHILS SEEN (NONE SEEN) 10/15/17 03:00 PT 10.5 SECONDS (9.5-11.5) 10/14/17 06:00 INR 1.01 (0.5-1.4) 10/14/17 06:00 PTT (Actin FS) 25.3 SECONDS (26.0-38.0) L 10/14/17 06:00 Sodium 137 mEq/L (136-145) 10/28/17 08:40 Potassium 3.9 mEq/L (3.5-5.1) 10/28/17 08:40 Chloride 103 mEq/L (98-107) 10/28/17 08:40 Carbon Dioxide 22.0 mEq/L (21.0-31.0) 10/28/17 08:40 Anion Gap 15.9 (7.0-16.0) 10/28/17 08:40 BUN 17 mg/dL (7-25) 10/28/17 08:40 Creatinine 1.1 mg/dL (0.7-1.3) 10/28/17 08:40 Est GFR ( Amer) TNP 10/28/17 08:40 Est GFR (Non-Af Amer) TNP 10/28/17 08:40 BUN/Creatinine Ratio 15.5 10/28/17 08:40 Glucose 191 mg/dL (70-105) H 10/28/17 08:40 POC Glucose 239 MG/DL (70 - 105) H 10/31/17 12:36 Hemoglobin A1c % 10.5 % (4.0-6.0) H 10/14/17 05:26 Uric Acid 5.6 mg/dL (4.4-7.6) 10/20/17 09:10 Calcium 8.9 mg/dL (8.6-10.3) 10/28/17 08:40 Phosphorus 4.1 mg/dL (2.5-5.0) 10/14/17 06:00 Magnesium 2.0 mg/dL (1.9-2.7) 10/22/17 05:05 Total Bilirubin 0.7 mg/dL (0.3-1.0) 10/28/17 08:40 AST 18 U/L (13-39) 10/28/17 08:40 ALT 16 U/L (7-52) 10/28/17 08:40 Alkaline Phosphatase 67 U/L (34-104) 10/28/17 08:40 Total Protein 6.8 gm/dL (6.0-8.3) 10/28/17 08:40 Albumin 3.0 gm/dL (4.2-5.5) L 10/28/17 08:40 Globulin 3.8 gm/dL 10/28/17 08:40 Albumin/Globulin Ratio 0.8 (1.0-1.8) L 10/28/17 08:40 TSH 0.28 uIU/ml (0.34-5.60) L 10/14/17 06:00 Urine Source [place] 10/28/17 14:00 Urine Color ORANGE 10/28/17 14:00 Urine Clarity CLOUDY (CLEAR) 10/28/17 14:00 Urine pH 5.5 (4.6 - 8.0) 10/28/17 14:00 Ur Specific [place] >= 1.030 (1.005-1.030) 10/28/17 14:00 Urine Protein 30 mg/dL (NEGATIVE) H 10/28/17 14:00 Urine Glucose (UA) NEGATIVE mg/dL (NEGATIVE) 10/28/17 14:00 Urine Ketones TRACE mg/dL (NEGATIVE) 10/28/17 14:00 Urine Blood MODERATE (NEGATIVE) H 10/28/17 14:00 Urine Nitrate NEGATIVE (NEGATIVE) 10/28/17 14:00 Urine Bilirubin MODERATE (NEGATIVE) H 10/28/17 14:00 Urine Ictotest NEGATIVE (NEGATIVE) 10/15/17 03:00 Urine Urobilinogen 1.0 E.U./dL (0.2 - 1.0) 10/28/17 14:00 Ur Leukocyte Esterase SMALL (NEGATIVE) H 10/28/17 14:00 Urine RBC 10-25 /hpf (0-5) H 10/28/17 14:00 Urine WBC 6-10 /hpf (0-5) 10/28/17 14:00 Ur Epithelial Cells FEW /lpf (FEW) 10/28/17 14:00 Urine Bacteria FEW /hpf (NONE SEEN) 10/28/17 14:00 Urine Yeast MANY /hpf (NONE SEEN) H 10/28/17 14:00 Urine Osmolality 749 mOsmol/kg 10/15/17 03:00 Ur Random Sodium 39 mmol/L 10/15/17 03:00 Urine Creatinine 136.0 mg/dl (39.0-259.0) 10/15/17 03:00 - Physical Exam Vitals and I&O: Vital Signs Temp 98.8 F 10/31/17 06:07 Pulse 78 10/31/17 10:06 Resp 18 10/31/17 06:07 BP 130/87 10/31/17 10:06 Pulse Ox 96 03/16/18 06:07 Intake & Output 10/30/17 10/31/17 10/31/17 18:59 06:59 18:59 Intake Total 800 Output Total 350 1150 Balance 450 -1150 Weight (lbs) 77.111 kg 77.111 kg Intake: Oral 800 Output: Urine 350 1150 Other: # Bowel Movements 1 0 Active Medications: Current Medications Acetaminophen (Tylenol) 650 mg PO Q6HR PRN PRN Reason: mild to moderate pain Stop: 12/11/17 19:27 Last Admin: 10/23/17 00:25 Dose: 650 mg Acetaminophen/Hydrocodone Bitart ([place] 5mg/325mg) 1 tab PO Q6H PRN PRN Reason: Pain (Moderate) Stop: 12/15/17 08:21 Last Admin: 10/29/17 15:59 Dose: 1 tab Allopurinol (Zyloprim) 100 mg PO DAILY [facility] Stop: 12/12/17 08:59 Last Admin: 10/31/17 10:10 Dose: 100 mg [place] Oil/Congolese Balsam/Trypsin (Venelex) 1 appl TP DAILY [facility] Stop: 12/12/17 15:59 Last Admin: 10/31/17 10:09 Dose: 1 appl Clonazepam (Klonopin) 1 mg PO BID [facility] PRN Reason: Protocol Stop: 12/15/17 08:59 Last Admin: 10/31/17 10:06 Dose: 1 mg Famotidine (Pepcid) 20 mg PO BID [facility] Stop: 12/12/17 08:59 Last Admin: 10/31/17 10:00 Dose: 20 mg Fluconazole (Diflucan) 100 mg PO DAILY [facility] Stop: 12/29/17 08:59 Last Admin: 10/31/17 10:06 Dose: 100 mg Heparin Sodium (Porcine) (Heparin) 5,000 units SUBQ Q12HR [facility] PRN Reason: Protocol Stop: 12/11/17 20:59 Last Admin: 10/31/17 10:03 Dose: 5,000 units Levofloxacin (Levaquin Pb) 500 mg in 100 mls @ 100 mls/hr IV Q24HR [facility] Stop: 12/29/17 14:44 Last Admin: 10/30/17 15:48 Dose: 100 mls/hr Insulin Aspart (Novolog Insulin Sliding Scale) 0 units SUBQ ACHS [facility] PRN Reason: Protocol Stop: 12/11/17 20:59 Last Admin: 10/31/17 12:46 Dose: 4 units Insulin Detemir (Levemir Insulin) 18 units SUBQ DAILY [facility] PRN Reason: Protocol Stop: 12/23/17 08:13 Last Admin: 10/31/17 10:16 Dose: 18 units Lorazepam (Ativan) 0.5 mg PO Q6HR PRN; Protocol PRN Reason: agitation Stop: 12/11/17 19:27 Last Admin: 10/29/17 15:59 Dose: 0.5 mg Magnesium Hydroxide (Milk Of Magnesia) 30 ml PO HS PRN PRN Reason: Constipation Stop: 12/11/17 19:27 Metoprolol Succinate (Toprol Xl) 25 mg PO BID [facility] Stop: 12/12/17 16:59 Last Admin: 10/31/17 10:06 Dose: 25 mg Olanzapine (Zyprexa Zydis) 15 mg PO BID [facility] PRN Reason: Protocol Stop: 12/29/17 06:50 Last Admin: 10/31/17 10:09 Dose: 15 mg Zolpidem Tartrate (Ambien) 5 mg PO HS PRN PRN Reason: insomnia Stop: 12/11/17 19:27 Last Admin: 10/26/17 21:25 Dose: 5 mg General: Alert, No acute distress HEENT: Atraumatic, PERRLA Neck: Supple Cardiovascular: Regular rate, Normal S1, Normal S2 Lungs: Clear to auscultation Abdomen: Bowel sounds, Soft Extremities: no Clubbing, no Cyanosis, no Edema Neurological: Sensation intact Skin: no Rash Psych/Mental Status: Mood NL - Procedures Procedures: Procedures Procedure Code Date JEWEL MUSC/FASCIA 20 SQ CM/< 59829 10/12/17 EXCISION OF RIGHT HIP MUSCLE, OPEN APPROACH [id number] 10/12/17 Assessment/Plan - Assessment Assessment: KEN on CKD Stage 4 decub ulcer S/P debridement Severe dehydration Ess HTN Type 2 DM Psychosis MSSA/Yeast UTI - Plan Plan: Lab - Result Diagrams 10/14/17 06:00 10/14/17 06:00 Current Medications Acetaminophen (Tylenol) 650 mg PO Q6HR PRN PRN Reason: mild to moderate pain Stop: 12/11/17 19:27 Allopurinol (Zyloprim) 100 mg PO DAILY [facility] Stop: 12/12/17 08:59 Last Admin: 10/14/17 10:00 Dose: Not Given [place] Oil/[place]olese Balsam/Trypsin (Venelex) 1 appl TP DAILY [facility] Stop: 12/12/17 15:59 Last Admin: 10/14/17 10:00 Dose: 1 appl Famotidine (Pepcid) 20 mg PO BID [facility] Stop: 12/12/17 08:59 Last Admin: 10/14/17 18:22 Dose: 20 mg Heparin Sodium (Porcine) (Heparin) 5,000 units SUBQ Q12HR [facility] PRN Reason: Protocol Stop: 12/11/17 20:59 Last Admin: 10/14/17 07:50 Dose: Not Given Ceftriaxone Sodium 1 gm/ (Sodium Chloride) 50 mls @ 100 mls/hr IV Q24HR [facility] Stop: 12/11/17 16:44 Last Admin: 10/14/17 17:45 Dose: 100 mls/hr Insulin Aspart (Novolog Insulin Sliding Scale) 0 units SUBQ ACHS [facility] PRN Reason: Protocol Stop: 12/11/17 20:59 Last Admin: 10/14/17 18:23 Dose: 6 units Lorazepam (Ativan) 0.5 mg PO Q6HR PRN; Protocol PRN Reason: agitation Stop: 12/11/17 19:27 Magnesium Hydroxide (Milk Of Magnesia) 30 ml PO HS PRN PRN Reason: Constipation Stop: 12/11/17 19:27 Metoprolol Succinate (Toprol Xl) 25 mg PO BID [facility] Stop: 12/12/17 16:59 Last Admin: 10/14/17 18:23 Dose: 25 mg Miscellaneous (Clinical Monitoring) 1 ea MC PRN PRN PRN Reason: RENAL Stop: 12/12/17 10:33 Olanzapine (Zyprexa Zydis) 5 mg PO BID [facility] PRN Reason: Protocol Stop: 12/13/17 16:59 Zolpidem Tartrate (Ambien) 5 mg PO HS PRN PRN Reason: insomnia Stop: 12/11/17 Lab - Result Diagrams 10/28/17 08:40 10/28/17 08:40 Na down to 137 Kidney fnc gradually improving agree w/ Allopurinol f/u electrolytes, continue hydration BS better control increase Detemir replace K Urine grew MSSA, Yeast add Diflucan to Levaquin placement in progress Nutritional Asmnt/Malnutr-PDOC - Dietary Evaluation Malnutrition Findings (Please click <Entered> for more info): Nutritional Asmnt/Malnutrition Start: 10/14/17 17: 10 Text: Status: Complete Freq: Document 10/14/17 17:13 [email or web address] (Rec: 10/14/17 17:25 LCDEMIG [email or web address]) Nutritional Asmnt/Malnutrition Patient General Information Nutritional Screening High Risk Consult Diagnosis pressure ulcer, hyperglycemia, dehydration Pertinent Medical Hx/Surgical Hx DM, dementia, depression, psychosis, schizophrenia, chronic renal insuff Subjective Information Consult received for unstageble pressure ulcer on , high BG on 10/12. Per records, PO intake 50-75%. Pt was on NPO today for surgery- excisional debridement, application of wound VAC Current Diet Order/ Nutrition Support pureed, CCHO 60gm Pertinent Medications novolog Pertinent Labs 10/14 Na 152, K 4.6, BUN 56, Cr 1.8, Glucose 262, POC 236-246 , Mg 2.9 Nutritional Hx/Data Height 1.8 m Height (Calculated Centimeters) 180.3 Current Weight (lbs) 70.76 kg Weight (Calculated Kilograms) 70.8 Weight (Calculated Grams) 23643.4 [place] Body Weight 172 % [place] Body Weight 91 Body Mass Index (BMI) 21.7 Weight Status Approriate GI Symptoms GI Symptoms None Last BM 10/13 Difficult in: None Skin Integrity/Comment: scar to right upper back, decubitus ulcer to buttocks Current %PO Fair (50-74%) Estimated Nutritional Goals BEE in Kcals: Using Current wt Calories/Kcals/Kg 27-32 Kcals Calculated 4211-9323 Protein: Using Current wt Protein g/k-1.2 Protein Calculated 71-85 Fluid: ml 1917-2130ml (1ml/kcal) Nutritional Problem 2. Problem Problem altered nutrition related lab values Etiology hx of DM Signs/Symptoms: Glucose 262, POC 236-246 1. Problem Problem increased nutrition needs ( calorie and protein) Etiology increased metabolic demand for wound healing Signs/Symptoms: decubitus ulcer and surgery Intervention/Recommendation Comments 1. Continue with current diet as ordered. If PO intake low, will consider nutrition supplements 2. MD to consider vit C and zinc for wound healing 3. Monitor PO intake, wt, labs and skin integrity 4. F/U as moderate risk in 3-5 days, 3/2-3/4, PO check / Expected Outcomes/Goals Expected Outcomes/Goals 1. PO intake to meet at least 75% of nutritional needs. 2. Wt stability, skin to remain intact, labs to approach WNL.
[2017-10-31] MEDS: Levofloxacin 500mg/100mL 500 MG/100 ML BAG IV SCH (15:58)
[2017-10-31] MEDS ORDERED: Probiotic Screen MC PRN (15:59)
[2017-11-01] MEDS ORDERED: Lactobacillus Rhamnosus GG 15 Billion CFU CAP.SPRINK PO SCH (09:00)
== END 2017-10-31 21:00 | DRG 579 ==
LOC: MSI 13:23
PROVIDERS: ADMIT Family Medicine; ATTEND Family Medicine
PROC: 3E0234Z Introduction of Serum, Toxoid and Vaccine into Muscle, Percutaneous Approach (ICD-10-PCS; 2017-10-12)
PROC: 0KBN0ZZ Excision of Right Hip Muscle, Open Approach (ICD-10-PCS; principal; 2017-10-14)
DX: L89.154 Pressure ulcer of sacral region, stage 4 (principal); N17.9 Acute kidney failure, unspecified; E87.0 Hyperosmolality and hypernatremia; F32.3 Major depressive disorder, single episode, severe with psychotic features; E11.21 Type 2 diabetes mellitus with diabetic nephropathy; E11.65 Type 2 diabetes mellitus with hyperglycemia; E87.5 Hyperkalemia; B37.49 Other urogenital candidiasis; N61.1 Abscess of the breast and nipple; E11.22 Type 2 diabetes mellitus with diabetic chronic kidney disease; E86.0 Dehydration; F03.90 Unspecified dementia, unspecified severity, without behavioral disturbance, psychotic disturbance, mood disturbance, and anxiety; I12.9 Hypertensive chronic kidney disease with stage 1 through stage 4 chronic kidney disease, or unspecified chronic kidney disease; N18.9 Chronic kidney disease, unspecified; F32.9 Major depressive disorder, single episode, unspecified; F41.9 Anxiety disorder, unspecified; M10.9 Gout, unspecified; R31.9 Hematuria, unspecified; B95.61 Methicillin susceptible Staphylococcus aureus infection as the cause of diseases classified elsewhere; Z79.4 Long term (current) use of insulin; Z79.899 Other long term (current) drug therapy; Z23 Encounter for immunization
CPT/HCPCS: 36415-UA; 71045-TC; 76770-TC; 80048-TC; 80053-TC; 81001-TC; 81015-TC; 82570-TC; 82948-90; 83036-90; 83735-TC; 83935-90; 84100-TC; 84300-TC; 84443-TC; 84550-TC; 85025-TC; 85610-TC; 87086-90; 88304-TC; 93005; J0696; J1644; J1815; J1956; J2060; J2250; J2704; J3010; J7030; J7040; V2790; X7704; Z7610

== ENCOUNTER 2017-10-31 23:20 | Inpatient (IN) | payer MEDICARE, MEDICAID ==
[2017-10-31] MEDS ORDERED: Magnesium Hydroxide (MOM) 30 mL UDC PO PRN (23:25)
[2017-11-01] MEDS: Insulin Detemir 100 units/mL 10mL Vial SUBQ SCH ×2 (03:16→10:56)
[2017-11-01] MEDS: Venelex 60gm Tube TP SCH ×2 (03:33→11:02)
[2017-11-01] MEDS: INSULIN ASPART SLIDING SCALE 100 UNITS/ML UNIT SUBQ SCH ×7 (03:34→20:25)
--- NOTE | 2017-11-01 06:46 | General Progress Note ---
Subjective - Review of Systems Service Date: 11/01/17 Subjective: Patient was discharged yesterday to an outside facility but unfortunately the patient return last night. Facility was unable to accept the patient. Thus patient was readmitted. Will resume previous orders. Objective - Results Recent Labs: Laboratory Last Values POC Glucose 130 MG/DL (70 - 105) H 11/01/17 03:04 - Physical Exam Vitals and I&O: Vital Signs Temp 96.4 F 11/01/17 04:00 Pulse 90 11/01/17 04:00 Resp 18 11/01/17 04:00 BP 113/70 11/01/17 04:00 Pulse Ox 98 11/01/17 04:00 Intake & Output 10/31/17 10/31/17 11/01/17 06:59 18:59 06:59 Weight (lbs) 77.111 kg Other: Stool Characteristics Soft Active Medications: Current Medications Acetaminophen (Tylenol) 650 mg PO Q6H PRN PRN Reason: mild to moderate pain Stop: 12/30/17 23:24 Acetaminophen/Hydrocodone Bitart ([place] 5mg/325mg) 1 tab PO Q6H PRN PRN Reason: Pain (Moderate) Stop: 12/30/17 23:24 Allopurinol (Zyloprim) 100 mg PO DAILY IMMANUEL Stop: 12/30/17 23:24 Last Admin: 11/01/17 03:33 Dose: Not Given [place] Oil/Martiniquais Balsam/Trypsin (Venelex) 1 appl TP DAILY IMMANUEL Stop: 12/30/17 23:24 Last Admin: 11/01/17 03:33 Dose: Not Given Clonazepam (Klonopin) 1 mg PO BID IMMANUEL PRN Reason: Protocol Stop: 12/30/17 23:24 Famotidine (Pepcid) 20 mg PO BID IMMANUEL Stop: 12/30/17 23:24 Last Admin: 11/01/17 03:33 Dose: Not Given Fluconazole (Diflucan) 100 mg PO DAILY IMMANUEL Stop: 12/30/17 23:24 Last Admin: 11/01/17 03:33 Dose: Not Given Heparin Sodium (Porcine) (Heparin) 5,000 units SUBQ Q12HR IMMANUEL PRN Reason: Protocol Stop: 12/30/17 23:24 Last Admin: 11/01/17 03:33 Dose: Not Given Insulin Aspart (Novolog Insulin Sliding Scale) 0 units SUBQ ACHS IMMANUEL PRN Reason: Protocol Stop: 12/30/17 23:24 Last Admin: 11/01/17 03:34 Dose: Not Given Insulin Detemir (Levemir Insulin) 18 units SUBQ DAILY IMMANUEL PRN Reason: Protocol Stop: 12/30/17 23:24 Last Admin: 11/01/17 03:16 Dose: Not Given Lorazepam (Ativan) 0.5 mg PO Q6HR PRN; Protocol PRN Reason: agitation Stop: 12/30/17 23:24 Magnesium Hydroxide (Milk Of Magnesia) 30 ml PO HS PRN PRN Reason: Constipation Stop: 12/30/17 23:24 Metformin HCl (Glucophage) 1,000 mg PO DAILY IMMANUEL Stop: 12/30/17 23:24 Metoprolol Succinate (Toprol Xl) 25 mg PO DAILY IMMANUEL Stop: 12/30/17 23:24 Last Admin: 11/01/17 03:34 Dose: Not Given Miscellaneous (Levofloxacin 500mg/100ml [Levaquin Pb]) 500 mg IV Q24HR IMMANUEL Stop: 12/31/17 14:44 Olanzapine (Zyprexa Zydis) 5 mg PO DAILY IMMANUEL PRN Reason: Protocol Stop: 12/30/17 23:24 Zolpidem Tartrate (Ambien) 5 mg PO HS PRN PRN Reason: insomnia Stop: 12/30/17 23:24 HEENT: Atraumatic, PERRLA, EOMI Neck: Supple, JVD Cardiovascular: Regular rate, Normal S1, Normal S2 Lungs: Clear to auscultation Abdomen: Bowel sounds, Soft Extremities: no Clubbing, no Cyanosis, no Edema Skin: Other (s/p wound debridement) - Procedures Procedures: Procedures Procedure Code Date JEWEL MUSC/FASCIA 20 SQ CM/< [id number] 10/12/17 EXCISION OF RIGHT HIP MUSCLE, OPEN APPROACH [id number] 10/12/17 Assessment/Plan - Assessment Assessment: psychosis diabetes mellitus s/p wound debridement UTI hyperglycemia - Plan Plan: continue current orders
[2017-11-01 07:30] LABS: ANION GAP 6.6 (7.0-16.0); BUN - UREA NITROGEN 9 mg/dL (7-25); CALCIUM SERUM 8.8 mg/dL (8.6-10.3); CARBON DIOXIDE 28.6 mEq/L (21.0-31.0); CHLORIDE 105 mEq/L (98-107); CREATININE - SERUM 0.9 mg/dL (0.7-1.3); GLUCOSE 169 mg/dL (70-105); POTASSIUM SERUM 4.2 mEq/L (3.5-5.1); SODIUM SERUM 136 mEq/L (136-145)
[2017-11-01] MEDS ORDERED: VTE Chemical Prophylaxis Screen/Admission MC PRN (10:30)
--- NOTE | 2017-11-01 12:42 | General Progress Note ---
Subjective - Review of Systems Service Date: 11/01/17 Subjective: sleeping, comfortable Objective - Results Result Diagrams: 11/01/17 06:48 Recent Labs: Laboratory Last Values Sodium 136 mEq/L (136-145) 11/01/17 06:48 Potassium 4.2 mEq/L (3.5-5.1) 11/01/17 06:48 Chloride 105 mEq/L (98-107) 11/01/17 06:48 Carbon Dioxide 28.6 mEq/L (21.0-31.0) 11/01/17 06:48 Anion Gap 6.6 (7.0-16.0) L 11/01/17 06:48 BUN 9 mg/dL (7-25) 11/01/17 06:48 Creatinine 0.9 mg/dL (0.7-1.3) 11/01/17 06:48 Est GFR ( Amer) TNP 11/01/17 06:48 Est GFR (Non-Af Amer) TNP 11/01/17 06:48 BUN/Creatinine Ratio 10.0 11/01/17 06:48 Glucose 169 mg/dL (70-105) H 11/01/17 06:48 POC Glucose 130 MG/DL (70 - 105) H 11/01/17 03:04 Calcium 8.8 mg/dL (8.6-10.3) 11/01/17 06:48 - Physical Exam Vitals and I&O: Vital Signs Temp 96.4 F 11/01/17 04:00 Pulse 90 11/01/17 10:55 Resp 18 11/01/17 04:00 BP 118/67 11/01/17 10:55 Pulse Ox 98 11/01/17 04:00 Intake & Output 10/31/17 11/01/17 11/01/17 18:59 06:59 18:59 Weight (lbs) 77.111 kg Other: Stool Characteristics Soft Active Medications: Current Medications Acetaminophen (Tylenol) 650 mg PO Q6H PRN PRN Reason: mild to moderate pain Stop: 12/30/17 23:24 Acetaminophen/Hydrocodone Bitart ([place] 5mg/325mg) 1 tab PO Q6H PRN PRN Reason: Pain (Moderate) Stop: 12/30/17 23:24 Allopurinol (Zyloprim) 100 mg PO DAILY [facility] Stop: 12/30/17 23:24 Last Admin: 11/01/17 10:54 Dose: 100 mg [place] Oil/[place] Balsam/Trypsin (Venelex) 1 appl TP DAILY [facility] Stop: 12/30/17 23:24 Last Admin: 11/01/17 11:02 Dose: 1 appl Clonazepam (Klonopin) 1 mg PO BID [facility] PRN Reason: Protocol Stop: 12/31/17 09:59 Famotidine (Pepcid) 20 mg PO BID [facility] Stop: 12/30/17 23:24 Last Admin: 11/01/17 10:54 Dose: 20 mg Fluconazole (Diflucan) 100 mg PO DAILY [facility] Stop: 12/30/17 23:24 Last Admin: 11/01/17 11:02 Dose: 100 mg Heparin Sodium (Porcine) (Heparin) 5,000 units SUBQ Q12HR [facility] PRN Reason: Protocol Stop: 12/30/17 23:24 Last Admin: 11/01/17 10:59 Dose: 5,000 units Levofloxacin (Levaquin Pb) 500 mg in 100 mls @ 100 mls/hr IV Q24H [facility] Stop: 12/31/17 11:59 Insulin Aspart (Novolog Insulin Sliding Scale) 0 units SUBQ ACHS [facility] PRN Reason: Protocol Stop: 12/30/17 23:24 Last Admin: 11/01/17 10:45 Dose: 2 units Insulin Aspart (Novolog Insulin Sliding Scale) 0 units SUBQ ACHS [facility] PRN Reason: Protocol Stop: 12/31/17 07:29 Insulin Detemir (Levemir Insulin) 18 units SUBQ DAILY [facility] PRN Reason: Protocol Stop: 12/30/17 23:24 Last Admin: 11/01/17 10:56 Dose: 18 units Lorazepam (Ativan) 0.5 mg PO Q6HR PRN; Protocol PRN Reason: agitation Stop: 12/30/17 23:24 Magnesium Hydroxide (Milk Of Magnesia) 30 ml PO HS PRN PRN Reason: Constipation Stop: 12/30/17 23:24 Metformin HCl (Glucophage) 1,000 mg PO DAILY [facility] Stop: 12/31/17 09:59 Metoprolol Succinate (Toprol Xl) 25 mg PO DAILY [facility] Stop: 12/30/17 23:24 Last Admin: 11/01/17 10:55 Dose: 25 mg Miscellaneous (Vte Chemical Prophylaxis Screen/ Admission) 1 ea [facility] PRN PRN PRN Reason: PROTOCOL Stop: 12/31/17 10:29 Olanzapine (Zyprexa Zydis) 5 mg PO DAILY [facility] PRN Reason: Protocol Stop: 12/31/17 09:59 Zolpidem Tartrate (Ambien) 5 mg PO HS PRN PRN Reason: insomnia Stop: 12/30/17 23:24 General: No acute distress HEENT: Atraumatic, PERRLA, EOMI Neck: Supple, JVD Cardiovascular: Regular rate, Normal S1, Normal S2 Lungs: Clear to auscultation Abdomen: Bowel sounds, Soft Extremities: no Clubbing, no Cyanosis, no Edema Neurological: Sensation intact Skin: no Rash - Procedures Procedures: Procedures Procedure Code Date JEWEL MUSC/FASCIA 20 SQ CM/< 29678 10/12/17 EXCISION OF RIGHT HIP MUSCLE, OPEN APPROACH [id number] 10/12/17 Assessment/Plan - Assessment Assessment: S/P KEN S/P electrolyte imbalance Acute decomp of Psychosis Type 2 DM Hx UTI - Plan Plan: Lab - Result Diagrams 11/01/17 06:48 Current Medications Acetaminophen (Tylenol) 650 mg PO Q6H PRN PRN Reason: mild to moderate pain Stop: 12/30/17 23:24 Acetaminophen/Hydrocodone Bitart ([place] 5mg/325mg) 1 tab PO Q6H PRN PRN Reason: Pain (Moderate) Stop: 12/30/17 23:24 Allopurinol (Zyloprim) 100 mg PO DAILY [facility] Stop: 12/30/17 23:24 Last Admin: 11/01/17 10:54 Dose: 100 mg [place] Oil/[place] Balsam/Trypsin (Venelex) 1 appl TP DAILY [facility] Stop: 12/30/17 23:24 Last Admin: 11/01/17 11:02 Dose: 1 appl Clonazepam (Klonopin) 1 mg PO BID [facility] PRN Reason: Protocol Stop: 12/31/17 09:59 Famotidine (Pepcid) 20 mg PO BID [facility] Stop: 12/30/17 23:24 Last Admin: 11/01/17 10:54 Dose: 20 mg Fluconazole (Diflucan) 100 mg PO DAILY [facility] Stop: 12/30/17 23:24 Last Admin: 11/01/17 11:02 Dose: 100 mg Heparin Sodium (Porcine) (Heparin) 5,000 units SUBQ Q12HR [facility] PRN Reason: Protocol Stop: 12/30/17 23:24 Last Admin: 11/01/17 10:59 Dose: 5,000 units Levofloxacin (Levaquin Pb) 500 mg in 100 mls @ 100 mls/hr IV Q24H [facility] Stop: 12/31/17 11:59 Insulin Aspart (Novolog Insulin Sliding Scale) 0 units SUBQ ACHS [facility] PRN Reason: Protocol Stop: 12/30/17 23:24 Last Admin: 11/01/17 10:45 Dose: 2 units Insulin Aspart (Novolog Insulin Sliding Scale) 0 units SUBQ ACHS [facility] PRN Reason: Protocol Stop: 12/31/17 07:29 Insulin Detemir (Levemir Insulin) 18 units SUBQ DAILY [facility] PRN Reason: Protocol Stop: 12/30/17 23:24 Last Admin: 11/01/17 10:56 Dose: 18 units Lorazepam (Ativan) 0.5 mg PO Q6HR PRN; Protocol PRN Reason: agitation Stop: 12/30/17 23:24 Magnesium Hydroxide (Milk Of Magnesia) 30 ml PO HS PRN PRN Reason: Constipation Stop: 12/30/17 23:24 Metformin HCl (Glucophage) 1,000 mg PO DAILY [facility] Stop: 12/31/17 09:59 Metoprolol Succinate (Toprol Xl) 25 mg PO DAILY [facility] Stop: 12/30/17 23:24 Last Admin: 11/01/17 10:55 Dose: 25 mg Miscellaneous (Vte Chemical Prophylaxis Screen/ Admission) 1 ea [facility] PRN PRN PRN Reason: PROTOCOL Stop: 12/31/17 10:29 Olanzapine (Zyprexa Zydis) 5 mg PO DAILY [facility] PRN Reason: Protocol Stop: 12/31/17 09:59 Zolpidem Tartrate (Ambien) 5 mg PO HS PRN PRN Reason: insomnia Stop: 12/30/17 23:24 Lab - Result Diagrams 11/01/17 06:48 Pt. DC'ed yesterday but back to ER after 2 hrs monitor kidney fnc encourage po intake
[2017-11-01] MEDS: OLANZapine 5 mg Oral Disintegrating Tab PO SCH (13:14)
[2017-11-01] MEDS: Levofloxacin 500mg/100mL 500 MG/100 ML BAG IV SCH (13:16)
[2017-11-01] MEDS ORDERED: Non-Formulary Item 1 EA (Levofloxacin 500mg/100ml [Levaquin Pb] 500 MG) IV SCH (14:45)
--- NOTE | 2017-11-01 22:49 | Progress Notes ---
DATE: 11/01/[address] Rainey. Case was discussed with staff of the patient, reviewed records. This is a well known case, I have seen him before. The patient is reported to continue to remain with episodes of agitation and irritability. He is currently on Klonopin 1 mg twice a day and Zyprexa 5 mg daily with no side effects, no sedation, no nausea, and recommended to continue his medications. Thank you very much for allowing me to participate in the care of this most interesting gentleman. JOB# [id number]
--- NOTE | 2017-11-02 06:49 | General Progress Note ---
Subjective - Review of Systems Service Date: 11/02/17 Subjective: Patient still confused, irritable. Behavior still an issue. relying on psychiatry for guidance. unable to transfer to [facility]. Objective - Results Result Diagrams: 11/01/17 06:48 Recent Labs: Laboratory Last Values Sodium 136 mEq/L (136-145) 11/01/17 06:48 Potassium 4.2 mEq/L (3.5-5.1) 11/01/17 06:48 Chloride 105 mEq/L (98-107) 11/01/17 06:48 Carbon Dioxide 28.6 mEq/L (21.0-31.0) 11/01/17 06:48 Anion Gap 6.6 (7.0-16.0) L 11/01/17 06:48 BUN 9 mg/dL (7-25) 11/01/17 06:48 Creatinine 0.9 mg/dL (0.7-1.3) 11/01/17 06:48 Est GFR ( Amer) TNP 11/01/17 06:48 Est GFR (Non-Af Amer) TNP 11/01/17 06:48 BUN/Creatinine Ratio 10.0 11/01/17 06:48 Glucose 169 mg/dL (70-105) H 11/01/17 06:48 POC Glucose 131 MG/DL (70 - 105) H 11/01/17 20:07 Calcium 8.8 mg/dL (8.6-10.3) 11/01/17 06:48 - Physical Exam Vitals and I&O: Vital Signs Temp 98.8 F 11/02/17 03:43 Pulse 114 11/02/17 03:43 Resp 18 11/02/17 03:43 BP 154/84 11/02/17 03:43 Pulse Ox 98 11/02/17 03:43 Intake & Output 11/01/17 11/01/17 11/02/17 06:59 18:59 06:59 Intake Total 0 Balance 0 Weight (lbs) 77.111 kg 77.111 kg Intake: Oral 0 Other: # Bowel Movements 0 Stool Characteristics Soft Active Medications: Current Medications Acetaminophen (Tylenol) 650 mg PO Q6H PRN PRN Reason: mild to moderate pain Stop: 12/30/17 23:24 Acetaminophen/Hydrocodone Bitart ([place] 5mg/325mg) 1 tab PO Q6H PRN PRN Reason: Pain (Moderate) Stop: 12/30/17 23:24 Allopurinol (Zyloprim) 100 mg PO DAILY [facility] Stop: 12/30/17 23:24 Last Admin: 11/01/17 10:54 Dose: 100 mg [place] Oil/[place] Balsam/Trypsin (Venelex) 1 appl TP DAILY [facility] Stop: 12/30/17 23:24 Last Admin: 11/01/17 11:02 Dose: 1 appl Clonazepam (Klonopin) 1 mg PO BID [facility] PRN Reason: Protocol Stop: 12/31/17 09:59 Last Admin: 11/01/17 18:07 Dose: 1 mg Famotidine (Pepcid) 20 mg PO BID [facility] Stop: 12/30/17 23:24 Last Admin: 11/01/17 18:07 Dose: 20 mg Fluconazole (Diflucan) 100 mg PO DAILY [facility] Stop: 12/30/17 23:24 Last Admin: 11/01/17 11:02 Dose: 100 mg Heparin Sodium (Porcine) (Heparin) 5,000 units SUBQ Q12HR [facility] PRN Reason: Protocol Stop: 12/30/17 23:24 Last Admin: 11/01/17 20:20 Dose: 5,000 units Levofloxacin (Levaquin Pb) 500 mg in 100 mls @ 100 mls/hr IV Q24H [facility] Stop: 12/31/17 11:59 Last Admin: 11/01/17 13:16 Dose: 100 mls/hr Insulin Aspart (Novolog Insulin Sliding Scale) 0 units SUBQ ACHS [facility] PRN Reason: Protocol Stop: 12/30/17 23:24 Last Admin: 11/01/17 20:25 Dose: Not Given Insulin Aspart (Novolog Insulin Sliding Scale) 0 units SUBQ ACHS [facility] PRN Reason: Protocol Stop: 12/31/17 07:29 Last Admin: 11/01/17 20:21 Dose: Not Given Insulin Detemir (Levemir Insulin) 18 units SUBQ DAILY [facility] PRN Reason: Protocol Stop: 12/30/17 23:24 Last Admin: 11/01/17 10:56 Dose: 18 units Lorazepam (Ativan) 0.5 mg PO Q6HR PRN; Protocol PRN Reason: agitation Stop: 12/30/17 23:24 Magnesium Hydroxide (Milk Of Magnesia) 30 ml PO HS PRN PRN Reason: Constipation Stop: 12/30/17 23:24 Metformin HCl (Glucophage) 1,000 mg PO DAILY [facility] Stop: 12/31/17 09:59 Last Admin: 11/01/17 13:18 Dose: 1,000 mg Metoprolol Succinate (Toprol Xl) 25 mg PO DAILY [facility] Stop: 12/30/17 23:24 Last Admin: 11/01/17 10:55 Dose: 25 mg Miscellaneous (Vte Chemical Prophylaxis Screen/ Admission) 1 ea [facility] PRN PRN PRN Reason: PROTOCOL Stop: 12/31/17 10:29 Olanzapine (Zyprexa Zydis) 5 mg PO DAILY [facility] PRN Reason: Protocol Stop: 12/31/17 09:59 Last Admin: 11/01/17 13:14 Dose: 5 mg Zolpidem Tartrate (Ambien) 5 mg PO HS PRN PRN Reason: insomnia Stop: 12/30/17 23:24 General: No acute distress HEENT: Atraumatic, PERRLA, EOMI Neck: Supple, JVD Cardiovascular: Regular rate, Normal S1, Normal S2 Lungs: Clear to auscultation Abdomen: Bowel sounds, Soft Extremities: no Clubbing, no Cyanosis, no Edema Neurological: Sensation intact Skin: no Rash - Procedures Procedures: Procedures Procedure Code Date JEWEL MUSC/FASCIA 20 SQ CM/< 92088 10/12/17 EXCISION OF RIGHT HIP MUSCLE, OPEN APPROACH [id number] 10/12/17 Assessment/Plan - Assessment Assessment: psychosis diabetes mellitus s/p wound debridement UTI hyperglycemia - Plan Plan: discharge planning.
[2017-11-02] MEDS: INSULIN ASPART SLIDING SCALE 100 UNITS/ML UNIT SUBQ SCH ×8 (08:01→20:42)
[2017-11-02] MEDS: OLANZapine 5 mg Oral Disintegrating Tab PO SCH (09:43)
[2017-11-02] MEDS: Venelex 60gm Tube TP SCH (09:52)
[2017-11-02] MEDS: Insulin Detemir 100 units/mL 10mL Vial SUBQ SCH (09:52)
[2017-11-02] MEDS: Levofloxacin 500mg/100mL 500 MG/100 ML BAG IV SCH (13:25)
--- NOTE | 2017-11-02 13:28 | General Progress Note ---
Subjective - Review of Systems Service Date: 11/02/17 Subjective: sleeping, comfortable, still periods of agitation Objective - Results Result Diagrams: 11/01/17 06:48 Recent Labs: Laboratory Last Values Sodium 136 mEq/L (136-145) 11/01/17 06:48 Potassium 4.2 mEq/L (3.5-5.1) 11/01/17 06:48 Chloride 105 mEq/L (98-107) 11/01/17 06:48 Carbon Dioxide 28.6 mEq/L (21.0-31.0) 11/01/17 06:48 Anion Gap 6.6 (7.0-16.0) L 11/01/17 06:48 BUN 9 mg/dL (7-25) 11/01/17 06:48 Creatinine 0.9 mg/dL (0.7-1.3) 11/01/17 06:48 Est GFR ( Amer) TNP 11/01/17 06:48 Est GFR (Non-Af Amer) TNP 11/01/17 06:48 BUN/Creatinine Ratio 10.0 11/01/17 06:48 Glucose 169 mg/dL (70-105) H 11/01/17 06:48 POC Glucose 126 MG/DL (70 - 105) H 11/02/17 12:13 Calcium 8.8 mg/dL (8.6-10.3) 11/01/17 06:48 - Physical Exam Vitals and I&O: Vital Signs Temp 97.3 F 11/02/17 08:00 Pulse 93 11/02/17 09:41 Resp 20 11/02/17 08:00 BP 122/79 11/02/17 09:41 Pulse Ox 98 11/02/17 08:00 Intake & Output 11/01/17 11/02/17 11/02/17 18:59 06:59 18:59 Intake Total 0 Balance 0 Weight (lbs) 77.111 kg 77.111 kg Intake: Oral 0 Other: # Bowel Movements 0 Active Medications: Current Medications Acetaminophen (Tylenol) 650 mg PO Q6H PRN PRN Reason: mild to moderate pain Stop: 12/30/17 23:24 Acetaminophen/Hydrocodone Bitart ([place] 5mg/325mg) 1 tab PO Q6H PRN PRN Reason: Pain (Moderate) Stop: 12/30/17 23:24 Allopurinol (Zyloprim) 100 mg PO DAILY [facility] Stop: 12/30/17 23:24 Last Admin: 11/02/17 09:43 Dose: Not Given [place] Oil/[place] Balsam/Trypsin (Venelex) 1 appl TP DAILY [facility] Stop: 12/30/17 23:24 Last Admin: 11/02/17 09:52 Dose: Not Given Clonazepam (Klonopin) 1 mg PO BID [facility] PRN Reason: Protocol Stop: 12/31/17 09:59 Last Admin: 11/02/17 09:43 Dose: Not Given Famotidine (Pepcid) 20 mg PO BID [facility] Stop: 12/30/17 23:24 Last Admin: 11/02/17 09:43 Dose: Not Given Fluconazole (Diflucan) 100 mg PO DAILY [facility] Stop: 12/30/17 23:24 Last Admin: 11/02/17 09:43 Dose: Not Given Heparin Sodium (Porcine) (Heparin) 5,000 units SUBQ Q12HR [facility] PRN Reason: Protocol Stop: 12/30/17 23:24 Last Admin: 11/02/17 09:52 Dose: Not Given Levofloxacin (Levaquin Pb) 500 mg in 100 mls @ 100 mls/hr IV Q24H [facility] Stop: 12/31/17 11:59 Last Admin: 11/01/17 13:16 Dose: 100 mls/hr Insulin Aspart (Novolog Insulin Sliding Scale) 0 units SUBQ ACHS [facility] PRN Reason: Protocol Stop: 12/30/17 23:24 Last Admin: 11/02/17 08:02 Dose: Not Given Insulin Aspart (Novolog Insulin Sliding Scale) 0 units SUBQ ACHS [facility] PRN Reason: Protocol Stop: 12/31/17 07:29 Last Admin: 11/02/17 08:01 Dose: Not Given Insulin Detemir (Levemir Insulin) 18 units SUBQ DAILY [facility] PRN Reason: Protocol Stop: 12/30/17 23:24 Last Admin: 11/02/17 09:52 Dose: Not Given Magnesium Hydroxide (Milk Of Magnesia) 30 ml PO HS PRN PRN Reason: Constipation Stop: 12/30/17 23:24 Metformin HCl (Glucophage) 1,000 mg PO DAILY [facility] Stop: 12/31/17 09:59 Last Admin: 11/02/17 09:41 Dose: Not Given Metoprolol Succinate (Toprol Xl) 25 mg PO DAILY [facility] Stop: 12/30/17 23:24 Last Admin: 11/02/17 09:41 Dose: Not Given Miscellaneous (Vte Chemical Prophylaxis Screen/ Admission) 1 ea [facility] PRN PRN PRN Reason: PROTOCOL Stop: 12/31/17 10:29 Olanzapine (Zyprexa Zydis) 5 mg PO DAILY [facility] PRN Reason: Protocol Stop: 12/31/17 09:59 Last Admin: 11/02/17 09:43 Dose: Not Given Zolpidem Tartrate (Ambien) 5 mg PO HS PRN PRN Reason: insomnia Stop: 12/30/17 23:24 General: No acute distress HEENT: Atraumatic, PERRLA, EOMI Neck: Supple, JVD Cardiovascular: Regular rate, Normal S1, Normal S2 Lungs: Clear to auscultation Abdomen: Bowel sounds, Soft Extremities: no Clubbing, no Cyanosis, no Edema Neurological: Sensation intact Skin: no Rash - Procedures Procedures: Procedures Procedure Code Date JEWEL MUSC/FASCIA 20 SQ CM/< 16008 10/12/17 EXCISION OF RIGHT HIP MUSCLE, OPEN APPROACH [id number] 10/12/17 Assessment/Plan - Assessment Assessment: S/P KEN S/P electrolyte imbalance Acute decomp of Psychosis Type 2 DM Hx UTI - Plan Plan: Lab - Result Diagrams 11/01/17 06:48 Current Medications Acetaminophen (Tylenol) 650 mg PO Q6H PRN PRN Reason: mild to moderate pain Stop: 12/30/17 23:24 Acetaminophen/Hydrocodone Bitart ([place] 5mg/325mg) 1 tab PO Q6H PRN PRN Reason: Pain (Moderate) Stop: 12/30/17 23:24 Allopurinol (Zyloprim) 100 mg PO DAILY [facility] Stop: 12/30/17 23:24 Last Admin: 11/01/17 10:54 Dose: 100 mg [place] Oil/[place] Balsam/Trypsin (Venelex) 1 appl TP DAILY [facility] Stop: 12/30/17 23:24 Last Admin: 11/01/17 11:02 Dose: 1 appl Clonazepam (Klonopin) 1 mg PO BID [facility] PRN Reason: Protocol Stop: 12/31/17 09:59 Famotidine (Pepcid) 20 mg PO BID [facility] Stop: 12/30/17 23:24 Last Admin: 11/01/17 10:54 Dose: 20 mg Fluconazole (Diflucan) 100 mg PO DAILY [facility] Stop: 12/30/17 23:24 Last Admin: 11/01/17 11:02 Dose: 100 mg Heparin Sodium (Porcine) (Heparin) 5,000 units SUBQ Q12HR [facility] PRN Reason: Protocol Stop: 12/30/17 23:24 Last Admin: 11/01/17 10:59 Dose: 5,000 units Levofloxacin (Levaquin Pb) 500 mg in 100 mls @ 100 mls/hr IV Q24H [facility] Stop: 12/31/17 11:59 Insulin Aspart (Novolog Insulin Sliding Scale) 0 units SUBQ ACHS [facility] PRN Reason: Protocol Stop: 12/30/17 23:24 Last Admin: 11/01/17 10:45 Dose: 2 units Insulin Aspart (Novolog Insulin Sliding Scale) 0 units SUBQ ACHS [facility] PRN Reason: Protocol Stop: 12/31/17 07:29 Insulin Detemir (Levemir Insulin) 18 units SUBQ DAILY [facility] PRN Reason: Protocol Stop: 12/30/17 23:24 Last Admin: 11/01/17 10:56 Dose: 18 units Lorazepam (Ativan) 0.5 mg PO Q6HR PRN; Protocol PRN Reason: agitation Stop: 12/30/17 23:24 Magnesium Hydroxide (Milk Of Magnesia) 30 ml PO HS PRN PRN Reason: Constipation Stop: 12/30/17 23:24 Metformin HCl (Glucophage) 1,000 mg PO DAILY [facility] Stop: 12/31/17 09:59 Metoprolol Succinate (Toprol Xl) 25 mg PO DAILY [facility] Stop: 12/30/17 23:24 Last Admin: 11/01/17 10:55 Dose: 25 mg Miscellaneous (Vte Chemical Prophylaxis Screen/ Admission) 1 ea [facility] PRN PRN PRN Reason: PROTOCOL Stop: 12/31/17 10:29 Olanzapine (Zyprexa Zydis) 5 mg PO DAILY [facility] PRN Reason: Protocol Stop: 12/31/17 09:59 Zolpidem Tartrate (Ambien) 5 mg PO HS PRN PRN Reason: insomnia Stop: 12/30/17 23:24 Lab - Result Diagrams 11/01/17 06:48 kidney fnc remain stable encourage po intake
--- NOTE | 2017-11-02 17:19 | Infectious Disease Prog Note ---
Infectious Disease Subjective - Review of Systems Service Date: 11/02/17 Events since last encounter: Patient was discharge and transfer back again for the aggressive behavior. Patient was receiving Levaquin for UTI. Patient has no IV access and the staff is unable to put the IV access because of his aggressive behavior. Patient isn' t on Levaquin IV for UTI. ID consult was called for antibiotic management. Patient was receiving antibiotic, he has sacral decubitus. Subjective: No fever Infectious Disease Objective - Results Result Diagrams: 11/01/17 06:48 Recent Labs: Laboratory Last Values Sodium 136 mEq/L (136-145) 11/01/17 06:48 Potassium 4.2 mEq/L (3.5-5.1) 11/01/17 06:48 Chloride 105 mEq/L (98-107) 11/01/17 06:48 Carbon Dioxide 28.6 mEq/L (21.0-31.0) 11/01/17 06:48 Anion Gap 6.6 (7.0-16.0) L 11/01/17 06:48 BUN 9 mg/dL (7-25) 11/01/17 06:48 Creatinine 0.9 mg/dL (0.7-1.3) 11/01/17 06:48 Est GFR ( Amer) TNP 11/01/17 06:48 Est GFR (Non-Af Amer) TNP 11/01/17 06:48 BUN/Creatinine Ratio 10.0 11/01/17 06:48 Glucose 169 mg/dL (70-105) H 11/01/17 06:48 POC Glucose 150 MG/DL (70 - 105) H 11/02/17 16:53 Calcium 8.8 mg/dL (8.6-10.3) 11/01/17 06:48 - Physical Exam Vitals and I&O: Vital Signs Temp 98.3 F 11/02/17 12:00 Pulse 76 11/02/17 12:00 Resp 20 11/02/17 12:00 BP 126/81 11/02/17 12:00 Pulse Ox 97 11/02/17 12:00 Intake & Output 11/01/17 11/02/17 11/02/17 18:59 06:59 18:59 Intake Total 100 0 Balance 100 0 Weight (lbs) 77.111 kg 77.111 kg Intake: Intake, IV Amount 100 Levofloxacin 500mg/100mL 100 500 mg In 100 ml @ 100 mls/hr IV Q24H [facility] Rx#: [id number] Oral 0 Other: # Bowel Movements 0 Active Medications: Current Medications Acetaminophen (Tylenol) 650 mg PO Q6H PRN PRN Reason: mild to moderate pain Stop: 12/30/17 23:24 Acetaminophen/Hydrocodone Bitart ([place] 5mg/325mg) 1 tab PO Q6H PRN PRN Reason: Pain (Moderate) Stop: 12/30/17 23:24 Allopurinol (Zyloprim) 100 mg PO DAILY [facility] Stop: 12/30/17 23:24 Last Admin: 11/02/17 09:43 Dose: Not Given [place] Oil/[place] Balsam/Trypsin (Venelex) 1 appl TP DAILY [facility] Stop: 12/30/17 23:24 Last Admin: 11/02/17 09:52 Dose: Not Given Clonazepam (Klonopin) 1 mg PO BID [facility] PRN Reason: Protocol Stop: 12/31/17 09:59 Last Admin: 11/02/17 16:55 Dose: 1 mg Famotidine (Pepcid) 20 mg PO BID [facility] Stop: 12/30/17 23:24 Last Admin: 11/02/17 16:56 Dose: 20 mg Fluconazole (Diflucan) 100 mg PO DAILY [facility] Stop: 12/30/17 23:24 Last Admin: 11/02/17 09:43 Dose: Not Given Heparin Sodium (Porcine) (Heparin) 5,000 units SUBQ Q12HR [facility] PRN Reason: Protocol Stop: 12/30/17 23:24 Last Admin: 11/02/17 09:52 Dose: Not Given Insulin Aspart (Novolog Insulin Sliding Scale) 0 units SUBQ ACHS [facility] PRN Reason: Protocol Stop: 12/30/17 23:24 Last Admin: 11/02/17 17:10 Dose: Not Given Insulin Aspart (Novolog Insulin Sliding Scale) 0 units SUBQ ACHS [facility] PRN Reason: Protocol Stop: 12/31/17 07:29 Last Admin: 11/02/17 17:10 Dose: Not Given Insulin Detemir (Levemir Insulin) 18 units SUBQ DAILY [facility] PRN Reason: Protocol Stop: 12/30/17 23:24 Last Admin: 11/02/17 09:52 Dose: Not Given Magnesium Hydroxide (Milk Of Magnesia) 30 ml PO HS PRN PRN Reason: Constipation Stop: 12/30/17 23:24 Metformin HCl (Glucophage) 1,000 mg PO DAILY [facility] Stop: 12/31/17 09:59 Last Admin: 11/02/17 09:41 Dose: Not Given Metoprolol Succinate (Toprol Xl) 25 mg PO DAILY [facility] Stop: 12/30/17 23:24 Last Admin: 11/02/17 09:41 Dose: Not Given Miscellaneous (Vte Chemical Prophylaxis Screen/ Admission) 1 ea [facility] PRN PRN PRN Reason: PROTOCOL Stop: 12/31/17 10:29 Mupirocin (Bactroban Oint) 1 appl NS BID [facility] Stop: 11/07/17 09:01 Olanzapine (Zyprexa Zydis) 5 mg PO DAILY [facility] PRN Reason: Protocol Stop: 12/31/17 09:59 Last Admin: 11/02/17 09:43 Dose: Not Given Zolpidem Tartrate (Ambien) 5 mg PO HS PRN PRN Reason: insomnia Stop: 12/30/17 23:24 General: no acute distress, well developed, well nourished HEENT: atraumatic, normocephalic, PERRLA Neck: supple, no thyromegaly, no lymphadenopathy Cardiovascular: S1S2, regular Lungs: clear to auscultation bilaterally, clear to percussion Abdomen: soft, no tender, no distended, no mass, no rebound, no splenomegaly Extremities: no cyanosis, no clubbing, no edema Neurological: other 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 Sacral decubitus ulcer. 2. UTI. Treated 3. Dementia. - Plan Plan: Oral antibiotic and wound care.
--- NOTE | 2017-11-03 03:46 | Progress Notes ---
DATE: 11/02/[address] Rainey. Case was discussed with staff of the patient, reviewed records. The patient continues to be unpredictable, impulsive, acting aggressive at times, demanding. Apparently, he was discharged and the team that was trying to take him back to the longterm and they ____ take him. He continues to have poor insight, easily agitated, irritable. He was restarted back on his medication with no side effects, no sedation, no nausea, no extrapyramidal symptoms. Thank you very much for allowing me to participate in the care of this most interesting gentleman. JOB# [id number]
--- NOTE | 2017-11-03 08:11 | General Progress Note ---
Subjective - Review of Systems Service Date: 11/03/17 Subjective: Patient still confused, irritable. Behavior still an issue. relying on psychiatry for guidance. unable to transfer to psychiatric. Patient currently on Klonopin 1mg PO BID. In restraints and in a lurdes-chair. Objective - Results Result Diagrams: 11/01/17 06:48 Recent Labs: Laboratory Last Values Sodium 136 mEq/L (136-145) 11/01/17 06:48 Potassium 4.2 mEq/L (3.5-5.1) 11/01/17 06:48 Chloride 105 mEq/L (98-107) 11/01/17 06:48 Carbon Dioxide 28.6 mEq/L (21.0-31.0) 11/01/17 06:48 Anion Gap 6.6 (7.0-16.0) L 11/01/17 06:48 BUN 9 mg/dL (7-25) 11/01/17 06:48 Creatinine 0.9 mg/dL (0.7-1.3) 11/01/17 06:48 Est GFR ( Amer) TNP 11/01/17 06:48 Est GFR (Non-Af Amer) TNP 11/01/17 06:48 BUN/Creatinine Ratio 10.0 11/01/17 06:48 Glucose 169 mg/dL (70-105) H 11/01/17 06:48 POC Glucose 150 MG/DL (70 - 105) H 11/02/17 16:53 Calcium 8.8 mg/dL (8.6-10.3) 11/01/17 06:48 - Physical Exam Vitals and I&O: Vital Signs Temp 97.4 F 11/03/17 04:00 Pulse 104 11/03/17 04:00 Resp 18 11/03/17 04:00 BP 131/80 11/03/17 04:00 Pulse Ox 98 11/03/17 04:00 Intake & Output 11/02/17 11/03/17 11/03/17 18:59 06:59 18:59 Intake Total 500 100 Output Total 300 400 Balance 200 -300 Weight (lbs) 77.111 kg 77.111 kg Intake: Oral 500 100 Output: Urine 300 400 Other: # Bowel Movements 1 Active Medications: Current Medications Acetaminophen (Tylenol) 650 mg PO Q6H PRN PRN Reason: mild to moderate pain Stop: 12/30/17 23:24 Acetaminophen/Hydrocodone Bitart ([place] 5mg/325mg) 1 tab PO Q6H PRN PRN Reason: Pain (Moderate) Stop: 12/30/17 23:24 Allopurinol (Zyloprim) 100 mg PO DAILY [facility] Stop: 12/30/17 23:24 Last Admin: 11/02/17 09:43 Dose: Not Given [place] Oil/[place]i Balsam/Trypsin (Venelex) 1 appl TP DAILY [facility] Stop: 12/30/17 23:24 Last Admin: 11/02/17 09:52 Dose: Not Given Clonazepam (Klonopin) 1 mg PO BID [facility] PRN Reason: Protocol Stop: 12/31/17 09:59 Last Admin: 11/02/17 16:55 Dose: 1 mg Famotidine (Pepcid) 20 mg PO BID [facility] Stop: 12/30/17 23:24 Last Admin: 11/02/17 16:56 Dose: 20 mg Fluconazole (Diflucan) 100 mg PO DAILY [facility] Stop: 12/30/17 23:24 Last Admin: 11/02/17 09:43 Dose: Not Given Heparin Sodium (Porcine) (Heparin) 5,000 units SUBQ Q12HR [facility] PRN Reason: Protocol Stop: 12/30/17 23:24 Last Admin: 11/02/17 20:42 Dose: Not Given Insulin Aspart (Novolog Insulin Sliding Scale) 0 units SUBQ ACHS [facility] PRN Reason: Protocol Stop: 12/30/17 23:24 Last Admin: 11/02/17 20:42 Dose: Not Given Insulin Aspart (Novolog Insulin Sliding Scale) 0 units SUBQ ACHS [facility] PRN Reason: Protocol Stop: 12/31/17 07:29 Last Admin: 11/02/17 20:41 Dose: Not Given Insulin Detemir (Levemir Insulin) 18 units SUBQ DAILY [facility] PRN Reason: Protocol Stop: 12/30/17 23:24 Last Admin: 11/02/17 09:52 Dose: Not Given Magnesium Hydroxide (Milk Of Magnesia) 30 ml PO HS PRN PRN Reason: Constipation Stop: 12/30/17 23:24 Metformin HCl (Glucophage) 1,000 mg PO DAILY [facility] Stop: 12/31/17 09:59 Last Admin: 11/02/17 09:41 Dose: Not Given Metoprolol Succinate (Toprol Xl) 25 mg PO DAILY [facility] Stop: 12/30/17 23:24 Last Admin: 11/02/17 09:41 Dose: Not Given Miscellaneous (Vte Chemical Prophylaxis Screen/ Admission) 1 ea [facility] PRN PRN PRN Reason: PROTOCOL Stop: 12/31/17 10:29 Mupirocin (Bactroban Oint) 1 appl NS BID [facility] Stop: 11/07/17 09:01 Last Admin: 11/02/17 17:53 Dose: 1 appl Olanzapine (Zyprexa Zydis) 5 mg PO BID [facility] PRN Reason: Protocol Stop: 01/02/18 08:59 Zolpidem Tartrate (Ambien) 5 mg PO HS PRN PRN Reason: insomnia Stop: 12/30/17 23:24 General: No acute distress HEENT: Atraumatic, PERRLA, EOMI Neck: Supple, JVD Cardiovascular: Regular rate, Normal S1, Normal S2 Lungs: Clear to auscultation Abdomen: Bowel sounds, Soft Extremities: no Clubbing, no Cyanosis, no Edema Neurological: Sensation intact Skin: no Rash - Procedures Procedures: Procedures Procedure Code Date JEWEL MUSC/FASCIA 20 SQ CM/< 93637 10/12/17 EXCISION OF RIGHT HIP MUSCLE, OPEN APPROACH [id number] 10/12/17 Assessment/Plan - Assessment Assessment: psychosis diabetes mellitus s/p wound debridement of sacral decubiti UTI hyperglycemia - Plan Plan: continue current medications. discharge planning.
[2017-11-03] MEDS: INSULIN ASPART SLIDING SCALE 100 UNITS/ML UNIT SUBQ SCH ×8 (09:30→20:14)
[2017-11-03] MEDS: Insulin Detemir 100 units/mL 10mL Vial SUBQ SCH (09:32)
--- NOTE | 2017-11-03 10:08 | Progress Notes ---
DATE: 11/03/2017 SUBJECTIVE: Chart reviewed and the patient interviewed. I also discussed the patient's condition with the staff and reviewed records and labs. The patient is still anxious and confused, but his affect is brighter. The patient also is interacting more with peers, but he still needs lots of redirections. The patient also is restless and is still slightly confused. Otherwise, the patient is compliant with taking his medications with no side effects of medications. ASSESSMENT: The patient is still confused and agitated. TREATMENT PLAN: Continue current medications. Also continue to monitor his behavior and continue to follow up. JOB# [id number]
[2017-11-03] MEDS: OLANZapine 5 mg Oral Disintegrating Tab PO SCH ×2 (10:38→18:41)
--- NOTE | 2017-11-03 14:17 | Infectious Disease Prog Note ---
Infectious Disease Subjective - Review of Systems Service Date: 11/03/17 Subjective: No fever Infectious Disease Objective - Results Result Diagrams: 11/01/17 06:48 Recent Labs: Laboratory Last Values Sodium 136 mEq/L (136-145) 11/01/17 06:48 Potassium 4.2 mEq/L (3.5-5.1) 11/01/17 06:48 Chloride 105 mEq/L (98-107) 11/01/17 06:48 Carbon Dioxide 28.6 mEq/L (21.0-31.0) 11/01/17 06:48 Anion Gap 6.6 (7.0-16.0) L 11/01/17 06:48 BUN 9 mg/dL (7-25) 11/01/17 06:48 Creatinine 0.9 mg/dL (0.7-1.3) 11/01/17 06:48 Est GFR ( Amer) TNP 11/01/17 06:48 Est GFR (Non-Af Amer) TNP 11/01/17 06:48 BUN/Creatinine Ratio 10.0 11/01/17 06:48 Glucose 169 mg/dL (70-105) H 11/01/17 06:48 POC Glucose 150 MG/DL (70 - 105) H 11/02/17 16:53 Calcium 8.8 mg/dL (8.6-10.3) 11/01/17 06:48 - Physical Exam Vitals and I&O: Vital Signs Temp 98.6 F 11/03/17 12:00 Pulse 104 11/03/17 12:00 Resp 18 11/03/17 12:00 BP 138/75 11/03/17 12:00 Pulse Ox 98 11/03/17 12:00 Intake & Output 11/02/17 11/03/17 11/03/17 18:59 06:59 18:59 Intake Total 500 100 Output Total 300 400 Balance 200 -300 Weight (lbs) 77.111 kg 77.111 kg Intake: Oral 500 100 Output: Urine 300 400 Other: # Bowel Movements 1 Active Medications: Current Medications Acetaminophen (Tylenol) 650 mg PO Q6H PRN PRN Reason: mild to moderate pain Stop: 12/30/17 23:24 Acetaminophen/Hydrocodone Bitart ([place] 5mg/325mg) 1 tab PO Q6H PRN PRN Reason: Pain (Moderate) Stop: 12/30/17 23:24 Allopurinol (Zyloprim) 100 mg PO DAILY [facility] Stop: 12/30/17 23:24 Last Admin: 11/03/17 09:30 Dose: Not Given [place] Oil/Ugandan Balsam/Trypsin (Venelex) 1 appl TP DAILY [facility] Stop: 12/30/17 23:24 Last Admin: 11/02/17 09:52 Dose: Not Given Clonazepam (Klonopin) 1 mg PO BID [facility] PRN Reason: Protocol Stop: 12/31/17 09:59 Last Admin: 11/03/17 10:36 Dose: 1 mg Famotidine (Pepcid) 20 mg PO BID [facility] Stop: 12/30/17 23:24 Last Admin: 11/03/17 09:32 Dose: Not Given Fluconazole (Diflucan) 100 mg PO DAILY [facility] Stop: 12/30/17 23:24 Last Admin: 11/03/17 10:37 Dose: 100 mg Heparin Sodium (Porcine) (Heparin) 5,000 units SUBQ Q12HR [facility] PRN Reason: Protocol Stop: 12/30/17 23:24 Last Admin: 11/03/17 09:32 Dose: Not Given Insulin Aspart (Novolog Insulin Sliding Scale) 0 units SUBQ ACHS [facility] PRN Reason: Protocol Stop: 12/30/17 23:24 Last Admin: 11/03/17 09:31 Dose: Not Given Insulin Aspart (Novolog Insulin Sliding Scale) 0 units SUBQ ACHS [facility] PRN Reason: Protocol Stop: 12/31/17 07:29 Last Admin: 11/03/17 09:30 Dose: Not Given Insulin Detemir (Levemir Insulin) 18 units SUBQ DAILY [facility] PRN Reason: Protocol Stop: 12/30/17 23:24 Last Admin: 11/03/17 09:32 Dose: Not Given Magnesium Hydroxide (Milk Of Magnesia) 30 ml PO HS PRN PRN Reason: Constipation Stop: 12/30/17 23:24 Metformin HCl (Glucophage) 1,000 mg PO DAILY [facility] Stop: 12/31/17 09:59 Last Admin: 11/03/17 09:32 Dose: Not Given Metoprolol Succinate (Toprol Xl) 25 mg PO DAILY [facility] Stop: 12/30/17 23:24 Last Admin: 11/03/17 09:32 Dose: Not Given Miscellaneous (Vte Chemical Prophylaxis Screen/ Admission) 1 ea [facility] PRN PRN PRN Reason: PROTOCOL Stop: 12/31/17 10:29 Mupirocin (Bactroban Oint) 1 appl NS BID [facility] Stop: 11/07/17 09:01 Last Admin: 11/03/17 10:37 Dose: Not Given Olanzapine (Zyprexa Zydis) 5 mg PO BID [facility] PRN Reason: Protocol Stop: 01/02/18 08:59 Last Admin: 11/03/17 10:38 Dose: Not Given Zolpidem Tartrate (Ambien) 5 mg PO HS PRN PRN Reason: insomnia Stop: 12/30/17 23:24 General: no acute distress, well developed, well nourished HEENT: atraumatic, normocephalic, PERRLA Neck: supple, no thyromegaly Cardiovascular: S1S2, regular Lungs: no clear to auscultation bilaterally, no clear to percussion, no crackles Abdomen: soft, no tender, no distended Extremities: no cyanosis, no clubbing, no edema Neurological: awake, alert, oriented Skin: intact - Procedures Procedures: Procedures Procedure Code Date JEWEL MUSC/FASCIA 20 SQ CM/< 45950 10/12/17 EXCISION OF RIGHT HIP MUSCLE, OPEN APPROACH [id number] 10/12/17 Infectious Disease Assmt/Plan - Assessment Assessment: 1. Sacral decubitus ulcer. 2. UTI. Treated 3. Dementia. - Plan Plan: Off antibiotic and wound care.
--- NOTE | 2017-11-03 14:28 | General Progress Note ---
Subjective - Review of Systems Service Date: 11/03/17 Subjective: up on chair still, periods of agitation Objective - Results Result Diagrams: 11/01/17 06:48 Recent Labs: Laboratory Last Values Sodium 136 mEq/L (136-145) 11/01/17 06:48 Potassium 4.2 mEq/L (3.5-5.1) 11/01/17 06:48 Chloride 105 mEq/L (98-107) 11/01/17 06:48 Carbon Dioxide 28.6 mEq/L (21.0-31.0) 11/01/17 06:48 Anion Gap 6.6 (7.0-16.0) L 11/01/17 06:48 BUN 9 mg/dL (7-25) 11/01/17 06:48 Creatinine 0.9 mg/dL (0.7-1.3) 11/01/17 06:48 Est GFR ( Amer) TNP 11/01/17 06:48 Est GFR (Non-Af Amer) TNP 11/01/17 06:48 BUN/Creatinine Ratio 10.0 11/01/17 06:48 Glucose 169 mg/dL (70-105) H 11/01/17 06:48 POC Glucose 150 MG/DL (70 - 105) H 11/02/17 16:53 Calcium 8.8 mg/dL (8.6-10.3) 11/01/17 06:48 - Physical Exam Vitals and I&O: Vital Signs Temp 98.6 F 11/03/17 12:00 Pulse 104 11/03/17 12:00 Resp 18 11/03/17 12:00 BP 138/75 11/03/17 12:00 Pulse Ox 98 11/03/17 12:00 Intake & Output 11/02/17 11/03/17 11/03/17 18:59 06:59 18:59 Intake Total 500 100 Output Total 300 400 Balance 200 -300 Weight (lbs) 77.111 kg 77.111 kg Intake: Oral 500 100 Output: Urine 300 400 Other: # Bowel Movements 1 Active Medications: Current Medications Acetaminophen (Tylenol) 650 mg PO Q6H PRN PRN Reason: mild to moderate pain Stop: 12/30/17 23:24 Acetaminophen/Hydrocodone Bitart ([place] 5mg/325mg) 1 tab PO Q6H PRN PRN Reason: Pain (Moderate) Stop: 12/30/17 23:24 Allopurinol (Zyloprim) 100 mg PO DAILY [facility] Stop: 12/30/17 23:24 Last Admin: 11/03/17 09:30 Dose: Not Given [place] Oil/Slovenian Balsam/Trypsin (Venelex) 1 appl TP DAILY [facility] Stop: 12/30/17 23:24 Last Admin: 11/02/17 09:52 Dose: Not Given Clonazepam (Klonopin) 1 mg PO BID [facility] PRN Reason: Protocol Stop: 12/31/17 09:59 Last Admin: 11/03/17 10:36 Dose: 1 mg Famotidine (Pepcid) 20 mg PO BID [facility] Stop: 12/30/17 23:24 Last Admin: 11/03/17 09:32 Dose: Not Given Fluconazole (Diflucan) 100 mg PO DAILY [facility] Stop: 12/30/17 23:24 Last Admin: 11/03/17 10:37 Dose: 100 mg Heparin Sodium (Porcine) (Heparin) 5,000 units SUBQ Q12HR [facility] PRN Reason: Protocol Stop: 12/30/17 23:24 Last Admin: 11/03/17 09:32 Dose: Not Given Insulin Aspart (Novolog Insulin Sliding Scale) 0 units SUBQ ACHS [facility] PRN Reason: Protocol Stop: 12/30/17 23:24 Last Admin: 11/03/17 09:31 Dose: Not Given Insulin Aspart (Novolog Insulin Sliding Scale) 0 units SUBQ ACHS [facility] PRN Reason: Protocol Stop: 12/31/17 07:29 Last Admin: 11/03/17 09:30 Dose: Not Given Insulin Detemir (Levemir Insulin) 18 units SUBQ DAILY [facility] PRN Reason: Protocol Stop: 12/30/17 23:24 Last Admin: 11/03/17 09:32 Dose: Not Given Magnesium Hydroxide (Milk Of Magnesia) 30 ml PO HS PRN PRN Reason: Constipation Stop: 12/30/17 23:24 Metformin HCl (Glucophage) 1,000 mg PO DAILY [facility] Stop: 12/31/17 09:59 Last Admin: 11/03/17 09:32 Dose: Not Given Metoprolol Succinate (Toprol Xl) 25 mg PO DAILY [facility] Stop: 12/30/17 23:24 Last Admin: 11/03/17 09:32 Dose: Not Given Miscellaneous (Vte Chemical Prophylaxis Screen/ Admission) 1 ea [facility] PRN PRN PRN Reason: PROTOCOL Stop: 12/31/17 10:29 Mupirocin (Bactroban Oint) 1 appl NS BID [facility] Stop: 11/07/17 09:01 Last Admin: 11/03/17 10:37 Dose: Not Given Olanzapine (Zyprexa Zydis) 5 mg PO BID [facility] PRN Reason: Protocol Stop: 01/02/18 08:59 Last Admin: 11/03/17 10:38 Dose: Not Given Zolpidem Tartrate (Ambien) 5 mg PO HS PRN PRN Reason: insomnia Stop: 12/30/17 23:24 General: No acute distress HEENT: Atraumatic, PERRLA, EOMI Neck: Supple, JVD Cardiovascular: Regular rate, Normal S1, Normal S2 Lungs: Clear to auscultation Abdomen: Bowel sounds, Soft Extremities: no Clubbing, no Cyanosis, no Edema Neurological: Sensation intact Skin: no Rash - Procedures Procedures: Procedures Procedure Code Date JEWEL MUSC/FASCIA 20 SQ CM/< 40824 10/12/17 EXCISION OF RIGHT HIP MUSCLE, OPEN APPROACH [id number] 10/12/17 Assessment/Plan - Assessment Assessment: S/P KEN S/P electrolyte imbalance Acute decomp of Psychosis Type 2 DM Hx UTI - Plan Plan: Lab - Result Diagrams 11/01/17 06:48 Current Medications Acetaminophen (Tylenol) 650 mg PO Q6H PRN PRN Reason: mild to moderate pain Stop: 12/30/17 23:24 Acetaminophen/Hydrocodone Bitart ([place] 5mg/325mg) 1 tab PO Q6H PRN PRN Reason: Pain (Moderate) Stop: 12/30/17 23:24 Allopurinol (Zyloprim) 100 mg PO DAILY [facility] Stop: 12/30/17 23:24 Last Admin: 11/01/17 10:54 Dose: 100 mg [place] Oil/Slovenian Balsam/Trypsin (Venelex) 1 appl TP DAILY [facility] Stop: 12/30/17 23:24 Last Admin: 11/01/17 11:02 Dose: 1 appl Clonazepam (Klonopin) 1 mg PO BID [facility] PRN Reason: Protocol Stop: 12/31/17 09:59 Famotidine (Pepcid) 20 mg PO BID [facility] Stop: 12/30/17 23:24 Last Admin: 11/01/17 10:54 Dose: 20 mg Fluconazole (Diflucan) 100 mg PO DAILY [facility] Stop: 12/30/17 23:24 Last Admin: 11/01/17 11:02 Dose: 100 mg Heparin Sodium (Porcine) (Heparin) 5,000 units SUBQ Q12HR [facility] PRN Reason: Protocol Stop: 12/30/17 23:24 Last Admin: 11/01/17 10:59 Dose: 5,000 units Levofloxacin (Levaquin Pb) 500 mg in 100 mls @ 100 mls/hr IV Q24H [facility] Stop: 12/31/17 11:59 Insulin Aspart (Novolog Insulin Sliding Scale) 0 units SUBQ ACHS [facility] PRN Reason: Protocol Stop: 12/30/17 23:24 Last Admin: 11/01/17 10:45 Dose: 2 units Insulin Aspart (Novolog Insulin Sliding Scale) 0 units SUBQ ACHS [facility] PRN Reason: Protocol Stop: 12/31/17 07:29 Insulin Detemir (Levemir Insulin) 18 units SUBQ DAILY [facility] PRN Reason: Protocol Stop: 12/30/17 23:24 Last Admin: 11/01/17 10:56 Dose: 18 units Lorazepam (Ativan) 0.5 mg PO Q6HR PRN; Protocol PRN Reason: agitation Stop: 12/30/17 23:24 Magnesium Hydroxide (Milk Of Magnesia) 30 ml PO HS PRN PRN Reason: Constipation Stop: 12/30/17 23:24 Metformin HCl (Glucophage) 1,000 mg PO DAILY [facility] Stop: 12/31/17 09:59 Metoprolol Succinate (Toprol Xl) 25 mg PO DAILY [facility] Stop: 12/30/17 23:24 Last Admin: 11/01/17 10:55 Dose: 25 mg Miscellaneous (Vte Chemical Prophylaxis Screen/ Admission) 1 ea [facility] PRN PRN PRN Reason: PROTOCOL Stop: 12/31/17 10:29 Olanzapine (Zyprexa Zydis) 5 mg PO DAILY [facility] PRN Reason: Protocol Stop: 12/31/17 09:59 Zolpidem Tartrate (Ambien) 5 mg PO HS PRN PRN Reason: insomnia Stop: 12/30/17 23:24 Lab - Result Diagrams 11/01/17 06:48 kidney fnc remain stable encourage po intake psych meds
[2017-11-03] MEDS: Venelex 60gm Tube TP SCH (15:19)
--- NOTE | 2017-11-04 06:08 | General Progress Note ---
Subjective - Review of Systems Service Date: 11/04/17 Subjective: Patient still confused, irritable. Behavior still an issue. relying on psychiatry for guidance. unable to transfer to [facility]. Patient currently on Klonopin 1mg PO BID. In restraints and in a lurdes-chair. Objective - Results Result Diagrams: 11/01/17 06:48 Recent Labs: Laboratory Last Values Sodium 136 mEq/L (136-145) 11/01/17 06:48 Potassium 4.2 mEq/L (3.5-5.1) 11/01/17 06:48 Chloride 105 mEq/L (98-107) 11/01/17 06:48 Carbon Dioxide 28.6 mEq/L (21.0-31.0) 11/01/17 06:48 Anion Gap 6.6 (7.0-16.0) L 11/01/17 06:48 BUN 9 mg/dL (7-25) 11/01/17 06:48 Creatinine 0.9 mg/dL (0.7-1.3) 11/01/17 06:48 Est GFR ( Amer) TNP 11/01/17 06:48 Est GFR (Non-Af Amer) TNP 11/01/17 06:48 BUN/Creatinine Ratio 10.0 11/01/17 06:48 Glucose 169 mg/dL (70-105) H 11/01/17 06:48 POC Glucose 181 MG/DL (70 - 105) H 11/03/17 19:59 Calcium 8.8 mg/dL (8.6-10.3) 11/01/17 06:48 - Physical Exam Vitals and I&O: Vital Signs Temp 97.4 F 11/03/17 16:00 Pulse 102 11/04/17 02:08 Resp 21 11/04/17 02:08 BP 103/65 11/04/17 02:08 Pulse Ox 98 11/03/17 16:00 Intake & Output 11/03/17 11/03/17 11/04/17 06:59 18:59 06:59 Intake Total 100 800 Output Total 400 300 Balance -300 500 Weight (lbs) 77.111 kg 77.111 kg Intake: Oral 100 800 Output: Urine 400 300 Other: # Bowel Movements 1 1 Active Medications: Current Medications Acetaminophen (Tylenol) 650 mg PO Q6H PRN PRN Reason: mild to moderate pain Stop: 12/30/17 23:24 Acetaminophen/Hydrocodone Bitart ([place] 5mg/325mg) 1 tab PO Q6H PRN PRN Reason: Pain (Moderate) Stop: 12/30/17 23:24 Allopurinol (Zyloprim) 100 mg PO DAILY [facility] Stop: 12/30/17 23:24 Last Admin: 11/03/17 09:30 Dose: Not Given [place] Oil/[place] Balsam/Trypsin (Venelex) 1 appl TP DAILY [facility] Stop: 12/30/17 23:24 Last Admin: 11/03/17 15:19 Dose: 1 appl Clonazepam (Klonopin) 1 mg PO BID [facility] PRN Reason: Protocol Stop: 12/31/17 09:59 Last Admin: 11/03/17 18:41 Dose: 1 mg Famotidine (Pepcid) 20 mg PO BID [facility] Stop: 12/30/17 23:24 Last Admin: 11/03/17 18:41 Dose: 20 mg Fluconazole (Diflucan) 100 mg PO DAILY [facility] Stop: 12/30/17 23:24 Last Admin: 11/03/17 10:37 Dose: 100 mg Heparin Sodium (Porcine) (Heparin) 5,000 units SUBQ Q12HR [facility] PRN Reason: Protocol Stop: 12/30/17 23:24 Last Admin: 11/03/17 20:01 Dose: 5,000 units Insulin Aspart (Novolog Insulin Sliding Scale) 0 units SUBQ ACHS [facility] PRN Reason: Protocol Stop: 12/30/17 23:24 Last Admin: 11/03/17 20:02 Dose: 2 units Insulin Aspart (Novolog Insulin Sliding Scale) 0 units SUBQ ACHS [facility] PRN Reason: Protocol Stop: 12/31/17 07:29 Last Admin: 11/03/17 20:14 Dose: Not Given Insulin Detemir (Levemir Insulin) 18 units SUBQ DAILY [facility] PRN Reason: Protocol Stop: 12/30/17 23:24 Last Admin: 11/03/17 09:32 Dose: Not Given Magnesium Hydroxide (Milk Of Magnesia) 30 ml PO HS PRN PRN Reason: Constipation Stop: 12/30/17 23:24 Metformin HCl (Glucophage) 1,000 mg PO DAILY [facility] Stop: 12/31/17 09:59 Last Admin: 11/03/17 09:32 Dose: Not Given Metoprolol Succinate (Toprol Xl) 25 mg PO DAILY [facility] Stop: 12/30/17 23:24 Last Admin: 11/03/17 09:32 Dose: Not Given Miscellaneous (Vte Chemical Prophylaxis Screen/ Admission) 1 ea [facility] PRN PRN PRN Reason: PROTOCOL Stop: 12/31/17 10:29 Mupirocin (Bactroban Oint) 1 appl NS BID [facility] Stop: 11/07/17 09:01 Last Admin: 11/03/17 18:41 Dose: Not Given Olanzapine (Zyprexa Zydis) 5 mg PO BID [facility] PRN Reason: Protocol Stop: 01/02/18 08:59 Last Admin: 11/03/17 18:41 Dose: 5 mg Zolpidem Tartrate (Ambien) 5 mg PO HS PRN PRN Reason: insomnia Stop: 12/30/17 23:24 Last Admin: 11/03/17 19:55 Dose: 5 mg General: No acute distress HEENT: Atraumatic, PERRLA, EOMI Neck: Supple, JVD Cardiovascular: Regular rate, Normal S1, Normal S2 Lungs: Clear to auscultation Abdomen: Bowel sounds, Soft Extremities: no Clubbing, no Cyanosis, no Edema Neurological: Sensation intact Skin: no Rash - Procedures Procedures: Procedures Procedure Code Date JEWEL MUSC/FASCIA 20 SQ CM/< 14367 10/12/17 EXCISION OF RIGHT HIP MUSCLE, OPEN APPROACH [id number] 10/12/17 INTRODUCTION OF SERUM/TOX/VACCINE INTO MUSCLE, PERC APPROACH [id number] 10/12/17 Assessment/Plan - Assessment Assessment: psychosis diabetes mellitus s/p wound debridement of sacral decubiti UTI hyperglycemia - Plan Plan: continue current medications. discharge planning.
--- NOTE | 2017-11-04 08:30 | Progress Notes ---
DATE: Chart reviewed and the patient interviewed. Also discussed the patient's condition with the staff and reviewed records and labs. The patient is calm and easier to redirect him, but he still has episodes of agitation and irritability. The patient also still needs redirections that he is still confused. Also, during my interview, the patient seems to be in elated mood and continued to wave with his both hands in the air in a confused state. Otherwise, decreased behavioral problems and decreased agitation. Also, is compliant with taking his medications with no side effects of medications. ASSESSMENT: The patient is still psychotic, but showing improvement. TREATMENT PLAN: We will continue to monitor his behavior and his condition closely. Also, continue adjusting psychotropic medications and working on behavioral modification. JOB# [id number]
[2017-11-04] MEDS: Venelex 60gm Tube TP SCH (09:35)
[2017-11-04] MEDS: INSULIN ASPART SLIDING SCALE 100 UNITS/ML UNIT SUBQ SCH ×5 (10:51→20:46)
[2017-11-04] MEDS: Insulin Detemir 100 units/mL 10mL Vial SUBQ SCH (10:53)
[2017-11-04] MEDS: OLANZapine 5 mg Oral Disintegrating Tab PO SCH ×2 (10:53→17:13)
--- NOTE | 2017-11-04 12:21 | General Progress Note ---
Subjective - Review of Systems Service Date: 11/04/17 Subjective: aggressive, received anxiolytic, more calm Objective - Results Result Diagrams: 11/01/17 06:48 Recent Labs: Laboratory Last Values Sodium 136 mEq/L (136-145) 11/01/17 06:48 Potassium 4.2 mEq/L (3.5-5.1) 11/01/17 06:48 Chloride 105 mEq/L (98-107) 11/01/17 06:48 Carbon Dioxide 28.6 mEq/L (21.0-31.0) 11/01/17 06:48 Anion Gap 6.6 (7.0-16.0) L 11/01/17 06:48 BUN 9 mg/dL (7-25) 11/01/17 06:48 Creatinine 0.9 mg/dL (0.7-1.3) 11/01/17 06:48 Est GFR ( Amer) TNP 11/01/17 06:48 Est GFR (Non-Af Amer) TNP 11/01/17 06:48 BUN/Creatinine Ratio 10.0 11/01/17 06:48 Glucose 169 mg/dL (70-105) H 11/01/17 06:48 POC Glucose 181 MG/DL (70 - 105) H 11/03/17 19:59 Calcium 8.8 mg/dL (8.6-10.3) 11/01/17 06:48 - Physical Exam Vitals and I&O: Vital Signs Temp 97.4 F 11/03/17 16:00 Pulse 82 11/04/17 09:34 Resp 20 11/04/17 08:00 BP 128/72 11/04/17 09:34 Pulse Ox 98 11/03/17 16:00 Intake & Output 11/03/17 11/04/17 11/04/17 18:59 06:59 18:59 Intake Total 800 100 240 Output Total 300 300 Balance 500 -200 240 Weight (lbs) 77.111 kg 77.111 kg 77.111 kg Intake: Oral 800 100 240 Output: Urine 300 300 Other: # Bowel Movements 1 0 Active Medications: Current Medications Acetaminophen (Tylenol) 650 mg PO Q6H PRN PRN Reason: mild to moderate pain Stop: 12/30/17 23:24 Acetaminophen/Hydrocodone Bitart ([place] 5mg/325mg) 1 tab PO Q6H PRN PRN Reason: Pain (Moderate) Stop: 12/30/17 23:24 Allopurinol (Zyloprim) 100 mg PO DAILY [facility] [place] Stop: 12/30/17 23:24 Last Admin: 11/04/17 10:52 Dose: Not Given [place] Oil/[place] Balsam/Trypsin (Venelex) 1 appl TP DAILY [facility] [place] Stop: 12/30/17 23:24 Last Admin: 11/04/17 09:35 Dose: 1 appl Clonazepam (Klonopin) 1 mg PO BID IMMANUEL PRN Reason: Protocol Stop: 12/31/17 09:59 Last Admin: 11/04/17 09:35 Dose: 1 mg Famotidine (Pepcid) 20 mg PO BID [facility] [place] Stop: 12/30/17 23:24 Last Admin: 11/04/17 09:33 Dose: 20 mg Fluconazole (Diflucan) 100 mg PO DAILY [facility] [place] Stop: 12/30/17 23:24 Last Admin: 11/04/17 09:33 Dose: 100 mg Heparin Sodium (Porcine) (Heparin) 5,000 units SUBQ Q12HR IMMANUEL PRN Reason: Protocol Stop: 12/30/17 23:24 Last Admin: 11/04/17 09:35 Dose: 5,000 units Insulin Aspart (Novolog Insulin Sliding Scale) 0 units SUBQ ACHS IMMANUEL PRN Reason: Protocol Stop: 12/30/17 23:24 Last Admin: 11/04/17 10:51 Dose: Not Given Insulin Aspart (Novolog Insulin Sliding Scale) 0 units SUBQ ACHS IMMANUEL PRN Reason: Protocol Stop: 12/31/17 07:29 Last Admin: 11/04/17 10:54 Dose: Not Given Insulin Detemir (Levemir Insulin) 18 units SUBQ DAILY IMMANUEL PRN Reason: Protocol Stop: 12/30/17 23:24 Last Admin: 11/04/17 10:53 Dose: Not Given Magnesium Hydroxide (Milk Of Magnesia) 30 ml PO PRN PRN Reason: Constipation Stop: 12/30/17 23:24 Metformin HCl (Glucophage) 1,000 mg PO DAILY [facility] [place] Stop: 12/31/17 09:59 Last Admin: 11/04/17 09:33 Dose: 1,000 mg Metoprolol Succinate (Toprol Xl) 25 mg PO DAILY [facility] [place] Stop: 12/30/17 23:24 Last Admin: 11/04/17 09:34 Dose: 25 mg Miscellaneous (Vte Chemical Prophylaxis Screen/ Admission) 1 ea [facility] PRN PRN PRN Reason: PROTOCOL Stop: 12/31/17 10:29 Mupirocin (Bactroban Oint) 1 appl NS BID IMMANUEL Stop: 11/07/17 09:01 Last Admin: 11/04/17 09:35 Dose: 1 appl Olanzapine (Zyprexa Zydis) 5 mg PO BID IMMANUEL PRN Reason: Protocol Stop: 01/02/18 08:59 Last Admin: 11/04/17 10:53 Dose: Not Given Zolpidem Tartrate (Ambien) 5 mg PO HS PRN PRN Reason: insomnia Stop: 12/30/17 23:24 Last Admin: 11/03/17 19:55 Dose: 5 mg General: No acute distress HEENT: Atraumatic, PERRLA, EOMI Neck: Supple, JVD Cardiovascular: Regular rate, Normal S1, Normal S2 Lungs: Clear to auscultation Abdomen: Bowel sounds, Soft Extremities: no Clubbing, no Cyanosis, no Edema Neurological: Sensation intact Skin: no Rash - Procedures Procedures: Procedures Procedure Code Date JEWEL MUSC/FASCIA 20 SQ CM/< 45085 10/12/17 EXCISION OF RIGHT HIP MUSCLE, OPEN APPROACH [id number] 10/12/17 INTRODUCTION OF SERUM/TOX/VACCINE INTO MUSCLE, PERC APPROACH [id number] 10/12/17 Assessment/Plan - Assessment Assessment: S/P KEN S/P electrolyte imbalance Acute decomp of Psychosis Type 2 DM Hx UTI - Plan Plan: Lab - Result Diagrams 11/01/17 06:48 Current Medications Acetaminophen (Tylenol) 650 mg PO Q6H PRN PRN Reason: mild to moderate pain Stop: 12/30/17 23:24 Acetaminophen/Hydrocodone Bitart ([place] 5mg/325mg) 1 tab PO Q6H PRN PRN Reason: Pain (Moderate) Stop: 12/30/17 23:24 Allopurinol (Zyloprim) 100 mg PO DAILY [facility] [place] Stop: 12/30/17 23:24 Last Admin: 11/01/17 10:54 Dose: 100 mg [place] Oil/[place] Balsam/Trypsin (Venelex) 1 appl TP DAILY [facility] Stop: 12/30/17 23:24 Last Admin: 11/01/17 11:02 Dose: 1 appl Clonazepam (Klonopin) 1 mg PO BID IMMANUEL PRN Reason: Protocol Stop: 12/31/17 09:59 Famotidine (Pepcid) 20 mg PO BID [facility] [place] Stop: 12/30/17 23:24 Last Admin: 11/01/17 10:54 Dose: 20 mg Fluconazole (Diflucan) 100 mg PO DAILY [facility] Stop: 12/30/17 23:24 Last Admin: 11/01/17 11:02 Dose: 100 mg Heparin Sodium (Porcine) (Heparin) 5,000 units SUBQ Q12HR IMMANUEL PRN Reason: Protocol Stop: 12/30/17 23:24 Last Admin: 11/01/17 10:59 Dose: 5,000 units Levofloxacin (Levaquin Pb) 500 mg in 100 mls @ 100 mls/hr IV Q24H [facility] [place] Stop: 12/31/17 11:59 Insulin Aspart (Novolog Insulin Sliding Scale) 0 units SUBQ ACHS IMMANUEL PRN Reason: Protocol Stop: 12/30/17 23:24 Last Admin: 11/01/17 10:45 Dose: 2 units Insulin Aspart (Novolog Insulin Sliding Scale) 0 units SUBQ ACHS IMMANUEL PRN Reason: Protocol Stop: 12/31/17 07:29 Insulin Detemir (Levemir Insulin) 18 units SUBQ DAILY IMMANUEL PRN Reason: Protocol Stop: 12/30/17 23:24 Last Admin: 11/01/17 10:56 Dose: 18 units Lorazepam (Ativan) 0.5 mg PO Q6HR PRN; Protocol PRN Reason: agitation Stop: 12/30/17 23:24 Magnesium Hydroxide (Milk Of Magnesia) 30 ml PO HS PRN PRN Reason: Constipation Stop: 12/30/17 23:24 Metformin HCl (Glucophage) 1,000 mg PO DAILY [facility] [place] Stop: 12/31/17 09:59 Metoprolol Succinate (Toprol Xl) 25 mg PO DAILY [facility] [place] Stop: 12/30/17 23:24 Last Admin: 11/01/17 10:55 Dose: 25 mg Miscellaneous (Vte Chemical Prophylaxis Screen/ Admission) 1 ea [facility] PRN PRN PRN Reason: PROTOCOL Stop: 12/31/17 10:29 Olanzapine (Zyprexa Zydis) 5 mg PO DAILY IMMANUEL PRN Reason: Protocol Stop: 12/31/17 09:59 Zolpidem Tartrate (Ambien) 5 mg PO HS PRN PRN Reason: insomnia Stop: 12/30/17 23:24 Lab - Result Diagrams 11/01/17 06:48 kidney fnc remain stable encourage po intake psych meds
--- NOTE | 2017-11-04 22:30 | Infectious Disease Prog Note ---
Infectious Disease Subjective - Review of Systems Service Date: 11/04/17 Subjective: No fever Infectious Disease Objective - Results Result Diagrams: 11/01/17 06:48 Recent Labs: Laboratory Last Values Sodium 136 mEq/L (136-145) 11/01/17 06:48 Potassium 4.2 mEq/L (3.5-5.1) 11/01/17 06:48 Chloride 105 mEq/L (98-107) 11/01/17 06:48 Carbon Dioxide 28.6 mEq/L (21.0-31.0) 11/01/17 06:48 Anion Gap 6.6 (7.0-16.0) L 11/01/17 06:48 BUN 9 mg/dL (7-25) 11/01/17 06:48 Creatinine 0.9 mg/dL (0.7-1.3) 11/01/17 06:48 Est GFR ( Amer) TNP 11/01/17 06:48 Est GFR (Non-Af Amer) TNP 11/01/17 06:48 BUN/Creatinine Ratio 10.0 11/01/17 06:48 Glucose 169 mg/dL (70-105) H 11/01/17 06:48 POC Glucose 181 MG/DL (70 - 105) H 11/03/17 19:59 Calcium 8.8 mg/dL (8.6-10.3) 11/01/17 06:48 - Physical Exam Vitals and I&O: Vital Signs Temp 98.9 F 11/04/17 14:00 Pulse 93 11/04/17 14:00 Resp 20 11/04/17 20:00 BP 149/79 11/04/17 14:00 Pulse Ox 100 11/04/17 14:00 Intake & Output 11/04/17 11/04/17 11/05/17 06:59 18:59 06:59 Intake Total 100 240 Output Total 300 Balance -200 240 Weight (lbs) 77.111 kg 77.111 kg Intake: Oral 100 240 Output: Urine 300 Other: # Bowel Movements 0 Active Medications: Current Medications Acetaminophen (Tylenol) 650 mg PO Q6H PRN PRN Reason: mild to moderate pain Stop: 12/30/17 23:24 Acetaminophen/Hydrocodone Bitart ([place] 5mg/325mg) 1 tab PO Q6H PRN PRN Reason: Pain (Moderate) Stop: 12/30/17 23:24 Allopurinol (Zyloprim) 100 mg PO DAILY [facility] Stop: 12/30/17 23:24 Last Admin: 11/04/17 10:52 Dose: Not Given [place] Oil/[place] Balsam/Trypsin (Venelex) 1 appl TP DAILY [facility] Stop: 12/30/17 23:24 Last Admin: 11/04/17 09:35 Dose: 1 appl Clonazepam (Klonopin) 1 mg PO BID IMMANUEL PRN Reason: Protocol Stop: 12/31/17 09:59 Last Admin: 11/04/17 17:13 Dose: 1 mg Famotidine (Pepcid) 20 mg PO BID IMMANUEL Stop: 12/30/17 23:24 Last Admin: 11/04/17 17:13 Dose: 20 mg Fluconazole (Diflucan) 100 mg PO DAILY [facility] Stop: 12/30/17 23:24 Last Admin: 11/04/17 09:33 Dose: 100 mg Heparin Sodium (Porcine) (Heparin) 5,000 units SUBQ Q12HR IMMANUEL PRN Reason: Protocol Stop: 12/30/17 23:24 Last Admin: 11/04/17 20:46 Dose: Not Given Insulin Aspart (Novolog Insulin Sliding Scale) 0 units SUBQ ACHS IMMANUEL PRN Reason: Protocol Stop: 12/30/17 23:24 Last Admin: 11/04/17 20:46 Dose: Not Given Insulin Aspart (Novolog Insulin Sliding Scale) 0 units SUBQ ACHS IMMANUEL PRN Reason: Protocol Stop: 12/31/17 07:29 Last Admin: 11/04/17 10:54 Dose: Not Given Insulin Detemir (Levemir Insulin) 18 units SUBQ DAILY IMMANUEL PRN Reason: Protocol Stop: 12/30/17 23:24 Last Admin: 11/04/17 10:53 Dose: Not Given Magnesium Hydroxide (Milk Of Magnesia) 30 ml PO PRN PRN Reason: Constipation Stop: 12/30/17 23:24 Metformin HCl (Glucophage) 1,000 mg PO DAILY [facility] Stop: 12/31/17 09:59 Last Admin: 11/04/17 09:33 Dose: 1,000 mg Metoprolol Succinate (Toprol Xl) 25 mg PO DAILY [facility] Stop: 12/30/17 23:24 Last Admin: 11/04/17 09:34 Dose: 25 mg Miscellaneous (Vte Chemical Prophylaxis Screen/ Admission) 1 ea [facility] PRN PRN PRN Reason: PROTOCOL Stop: 12/31/17 10:29 Mupirocin (Bactroban Oint) 1 appl NS BID IMMANUEL Stop: 11/07/17 09:01 Last Admin: 11/04/17 17:14 Dose: 1 appl Olanzapine (Zyprexa Zydis) 5 mg PO BID IMMANUEL PRN Reason: Protocol Stop: 01/02/18 08:59 Last Admin: 11/04/17 17:13 Dose: 5 mg Zolpidem Tartrate (Ambien) 5 mg PO HS PRN PRN Reason: insomnia Stop: 12/30/17 23:24 Last Admin: 11/03/17 19:55 Dose: 5 mg General: no acute distress, well developed, well nourished, cachectic HEENT: atraumatic, PERRLA, EOMI, no normocephalic Neck: supple, no thyromegaly, no lymphadenopathy Cardiovascular: S1S2, regular, no irregular Lungs: clear to auscultation bilaterally, clear to percussion Abdomen: soft, tender, bowel sounds, no distended, no rebound, no ascites Extremities: no cyanosis, no clubbing, no edema, no lines Neurological: awake, alert, other (Confused) Skin: other (sacral wound) - Procedures Procedures: Procedures Procedure Code Date JEWEL MUSC/FASCIA 20 SQ CM/< 76041 10/12/17 EXCISION OF RIGHT HIP MUSCLE, OPEN APPROACH [id number] 10/12/17 INTRODUCTION OF SERUM/TOX/VACCINE INTO MUSCLE, PERC APPROACH [id number] 10/12/17 Infectious Disease Assmt/Plan - Assessment Assessment: 1. Sacral decubitus ulcer. 2. UTI. Treated 3. Dementia. - Plan Plan: Off antibiotic and wound care.
--- NOTE | 2017-11-05 07:52 | Progress Notes ---
DATE: SUBJECTIVE: Chart reviewed and the patient interviewed. Also discussed the patient's condition with the staff and reviewed records and labs. The patient is still restless and agitated. The patient also still using foul language and tries to hit staff when helping him with his ADLs, but staff is able to control his behavior. Also is still suspicious and paranoid and keeps rambling in [place] language. Otherwise, the patient is compliant with taking medication with no side effects of medications. ASSESSMENT: The patient has been aggressive and agitated. TREATMENT PLAN: Continue to monitor his behavior and his condition closely and continue to follow up. JOB# [id number]
--- NOTE | 2017-11-05 08:31 | General Progress Note ---
Subjective - Review of Systems Service Date: 11/05/17 Subjective: Patient still confused, irritable. Behavior still an issue. relying on psychiatry for guidance. unable to transfer to [facility]. Patient currently on Klonopin 1mg PO BID. In restraints and in a lurdes-chair. Objective - Results Result Diagrams: 11/01/17 06:48 Recent Labs: Laboratory Last Values Sodium 136 mEq/L (136-145) 11/01/17 06:48 Potassium 4.2 mEq/L (3.5-5.1) 11/01/17 06:48 Chloride 105 mEq/L (98-107) 11/01/17 06:48 Carbon Dioxide 28.6 mEq/L (21.0-31.0) 11/01/17 06:48 Anion Gap 6.6 (7.0-16.0) L 11/01/17 06:48 BUN 9 mg/dL (7-25) 11/01/17 06:48 Creatinine 0.9 mg/dL (0.7-1.3) 11/01/17 06:48 Est GFR ( Amer) TNP 11/01/17 06:48 Est GFR (Non-Af Amer) TNP 11/01/17 06:48 BUN/Creatinine Ratio 10.0 11/01/17 06:48 Glucose 169 mg/dL (70-105) H 11/01/17 06:48 POC Glucose 181 MG/DL (70 - 105) H 11/03/17 19:59 Calcium 8.8 mg/dL (8.6-10.3) 11/01/17 06:48 - Physical Exam Vitals and I&O: Vital Signs Temp 97.2 F 11/05/17 04:00 Pulse 105 11/05/17 04:00 Resp 16 11/05/17 04:00 BP 133/81 11/05/17 04:00 Pulse Ox 97 11/05/17 04:00 Intake & Output 11/04/17 11/05/17 11/05/17 18:59 06:59 18:59 Intake Total 240 Output Total 1000 Balance 240 -1000 Weight (lbs) 77.111 kg 77.111 kg Intake: Oral 240 Output: Urine 1000 Other: # Bowel Movements 0 Active Medications: Current Medications Acetaminophen (Tylenol) 650 mg PO Q6H PRN PRN Reason: mild to moderate pain Stop: 12/30/17 23:24 Acetaminophen/Hydrocodone Bitart ([place] 5mg/325mg) 1 tab PO Q6H PRN PRN Reason: Pain (Moderate) Stop: 12/30/17 23:24 Allopurinol (Zyloprim) 100 mg PO DAILY [facility] Stop: 12/30/17 23:24 Last Admin: 11/04/17 10:52 Dose: Not Given [place] Oil/[place] Balsam/Trypsin (Venelex) 1 appl TP DAILY [facility] Stop: 12/30/17 23:24 Last Admin: 11/04/17 09:35 Dose: 1 appl Clonazepam (Klonopin) 1 mg PO BID IMMANUEL PRN Reason: Protocol Stop: 12/31/17 09:59 Last Admin: 11/04/17 17:13 Dose: 1 mg Famotidine (Pepcid) 20 mg PO BID [facility] Stop: 12/30/17 23:24 Last Admin: 11/04/17 17:13 Dose: 20 mg Fluconazole (Diflucan) 100 mg PO DAILY [facility] Stop: 12/30/17 23:24 Last Admin: 11/04/17 09:33 Dose: 100 mg Heparin Sodium (Porcine) (Heparin) 5,000 units SUBQ Q12HR IMMANUEL PRN Reason: Protocol Stop: 12/30/17 23:24 Last Admin: 11/04/17 20:46 Dose: Not Given Insulin Aspart (Novolog Insulin Sliding Scale) 0 units SUBQ ACHS IMMANUEL PRN Reason: Protocol Stop: 12/30/17 23:24 Last Admin: 11/04/17 20:46 Dose: Not Given Insulin Aspart (Novolog Insulin Sliding Scale) 0 units SUBQ ACHS IMMANUEL PRN Reason: Protocol Stop: 12/31/17 07:29 Last Admin: 11/04/17 10:54 Dose: Not Given Insulin Detemir (Levemir Insulin) 18 units SUBQ DAILY IMMANUEL PRN Reason: Protocol Stop: 12/30/17 23:24 Last Admin: 11/04/17 10:53 Dose: Not Given Magnesium Hydroxide (Milk Of Magnesia) 30 ml PO HS PRN PRN Reason: Constipation Stop: 12/30/17 23:24 Metformin HCl (Glucophage) 1,000 mg PO DAILY [facility] Stop: 12/31/17 09:59 Last Admin: 11/04/17 09:33 Dose: 1,000 mg Metoprolol Succinate (Toprol Xl) 25 mg PO DAILY [facility] Stop: 12/30/17 23:24 Last Admin: 11/04/17 09:34 Dose: 25 mg Miscellaneous (Vte Chemical Prophylaxis Screen/ Admission) 1 ea MC PRN PRN PRN Reason: PROTOCOL Stop: 12/31/17 10:29 Mupirocin (Bactroban Oint) 1 appl NS BID IMMANUEL Stop: 11/07/17 09:01 Last Admin: 11/04/17 17:14 Dose: 1 appl Olanzapine (Zyprexa Zydis) 5 mg PO BID IMMANUEL PRN Reason: Protocol Stop: 01/02/18 08:59 Last Admin: 11/04/17 17:13 Dose: 5 mg Zolpidem Tartrate (Ambien) 5 mg PO HS PRN PRN Reason: insomnia Stop: 12/30/17 23:24 Last Admin: 11/03/17 19:55 Dose: 5 mg General: Alert, No acute distress HEENT: Atraumatic, PERRLA, EOMI Neck: Supple, JVD Cardiovascular: Regular rate, Normal S1, Normal S2 Lungs: Clear to auscultation Abdomen: Bowel sounds, Soft Extremities: no Clubbing, no Cyanosis, no Edema Neurological: Sensation intact Skin: no Rash - Procedures Procedures: Procedures Procedure Code Date JEWEL MUSC/FASCIA 20 SQ CM/< 59453 10/12/17 EXCISION OF RIGHT HIP MUSCLE, OPEN APPROACH [id number] 10/12/17 INTRODUCTION OF SERUM/TOX/VACCINE INTO MUSCLE, PERC APPROACH [id number] 10/12/17 Assessment/Plan - Assessment Assessment: psychosis diabetes mellitus s/p wound debridement of sacral decubiti UTI hyperglycemia - Plan Plan: continue current medications. discharge planning.
[2017-11-05] MEDS: OLANZapine 5 mg Oral Disintegrating Tab PO SCH ×2 (10:24→17:55)
[2017-11-05] MEDS: Venelex 60gm Tube TP SCH (10:25)
[2017-11-05] MEDS: INSULIN ASPART SLIDING SCALE 100 UNITS/ML UNIT SUBQ SCH ×3 (10:29→21:29)
--- NOTE | 2017-11-05 15:18 | General Progress Note ---
Subjective - Review of Systems Service Date: 11/05/17 Subjective: lying in bed, calm Objective - Results Result Diagrams: 11/01/17 06:48 Recent Labs: Laboratory Last Values Sodium 136 mEq/L (136-145) 11/01/17 06:48 Potassium 4.2 mEq/L (3.5-5.1) 11/01/17 06:48 Chloride 105 mEq/L (98-107) 11/01/17 06:48 Carbon Dioxide 28.6 mEq/L (21.0-31.0) 11/01/17 06:48 Anion Gap 6.6 (7.0-16.0) L 11/01/17 06:48 BUN 9 mg/dL (7-25) 11/01/17 06:48 Creatinine 0.9 mg/dL (0.7-1.3) 11/01/17 06:48 Est GFR ( Amer) TNP 11/01/17 06:48 Est GFR (Non-Af Amer) TNP 11/01/17 06:48 BUN/Creatinine Ratio 10.0 11/01/17 06:48 Glucose 169 mg/dL (70-105) H 11/01/17 06:48 POC Glucose 225 MG/DL (70 - 105) H 11/05/17 11:55 Calcium 8.8 mg/dL (8.6-10.3) 11/01/17 06:48 - Physical Exam Vitals and I&O: Vital Signs Temp 97.2 F 11/05/17 04:00 Pulse 91 11/05/17 10:23 Resp 16 11/05/17 04:00 BP 144/89 11/05/17 10:23 Pulse Ox 97 11/05/17 04:00 Intake & Output 11/04/17 11/05/17 11/05/17 18:59 06:59 18:59 Intake Total 240 Output Total 1000 Balance 240 -1000 Weight (lbs) 77.111 kg 77.111 kg 77.111 kg Intake: Oral 240 Output: Urine 1000 Other: # Bowel Movements 0 Active Medications: Current Medications Acetaminophen (Tylenol) 650 mg PO Q6H PRN PRN Reason: mild to moderate pain Stop: 12/30/17 23:24 Acetaminophen/Hydrocodone Bitart ([place] 5mg/325mg) 1 tab PO Q6H PRN PRN Reason: Pain (Moderate) Stop: 12/30/17 23:24 Allopurinol (Zyloprim) 100 mg PO DAILY IMMANUEL Stop: 12/30/17 23:24 Last Admin: 11/05/17 10:24 Dose: 100 mg [place] Oil/[place] Balsam/Trypsin (Venelex) 1 appl TP DAILY IMMANUEL Stop: 12/30/17 23:24 Last Admin: 11/05/17 10:25 Dose: 1 appl Clonazepam (Klonopin) 1 mg PO BID MIMANUEL PRN Reason: Protocol Stop: 12/31/17 09:59 Last Admin: 11/05/17 10:24 Dose: 1 mg Donepezil HCl (Aricept) 5 mg PO DAILY IMMANUEL Stop: 01/04/18 08:59 Last Admin: 11/05/17 10:23 Dose: 5 mg Famotidine (Pepcid) 20 mg PO BID IMMANUEL Stop: 12/30/17 23:24 Last Admin: 11/05/17 10:23 Dose: 20 mg Fluconazole (Diflucan) 100 mg PO DAILY IMMANUEL Stop: 12/30/17 23:24 Last Admin: 11/05/17 10:23 Dose: 100 mg Heparin Sodium (Porcine) (Heparin) 5,000 units SUBQ Q12HR IMMANUEL PRN Reason: Protocol Stop: 12/30/17 23:24 Last Admin: 11/05/17 10:30 Dose: 5,000 units Insulin Aspart (Novolog Insulin Sliding Scale) 0 units SUBQ ACHS IMMANUEL PRN Reason: Protocol Stop: 12/30/17 23:24 Last Admin: 11/05/17 12:27 Dose: 4 units Insulin Aspart (Novolog Insulin Sliding Scale) 0 units SUBQ ACHS IMMANUEL PRN Reason: Protocol Stop: 12/31/17 07:29 Last Admin: 11/04/17 10:54 Dose: Not Given Insulin Detemir (Levemir Insulin) 18 units SUBQ DAILY IMMANUEL PRN Reason: Protocol Stop: 12/30/17 23:24 Last Admin: 11/04/17 10:53 Dose: Not Given Magnesium Hydroxide (Milk Of Magnesia) 30 ml PO HS PRN PRN Reason: Constipation Stop: 12/30/17 23:24 Metformin HCl (Glucophage) 1,000 mg PO DAILY [facility] Stop: 12/31/17 09:59 Last Admin: 11/05/17 10:23 Dose: 1,000 mg Metoprolol Succinate (Toprol Xl) 25 mg PO DAILY IMMANUEL Stop: 12/30/17 23:24 Last Admin: 11/05/17 10:23 Dose: 25 mg Miscellaneous (Vte Chemical Prophylaxis Screen/ Admission) 1 ea MC PRN PRN PRN Reason: PROTOCOL Stop: 12/31/17 10:29 Mupirocin (Bactroban Oint) 1 appl NS BID IMMANUEL Stop: 11/07/17 09:01 Last Admin: 11/05/17 10:25 Dose: 1 appl Olanzapine (Zyprexa Zydis) 5 mg PO BID IMMANUEL PRN Reason: Protocol Stop: 01/02/18 08:59 Last Admin: 11/05/17 10:24 Dose: 5 mg Zolpidem Tartrate (Ambien) 5 mg PO HS PRN PRN Reason: insomnia Stop: 12/30/17 23:24 Last Admin: 11/03/17 19:55 Dose: 5 mg General: Alert, No acute distress HEENT: Atraumatic, PERRLA, EOMI Neck: Supple, JVD Cardiovascular: Regular rate, Normal S1, Normal S2 Lungs: Clear to auscultation Abdomen: Bowel sounds, Soft Extremities: no Clubbing, no Cyanosis, no Edema Neurological: Sensation intact Skin: no Rash - Procedures Procedures: Procedures Procedure Code Date JEWEL MUSC/FASCIA 20 SQ CM/< 48700 10/12/17 EXCISION OF RIGHT HIP MUSCLE, OPEN APPROACH [id number] 10/12/17 INTRODUCTION OF SERUM/TOX/VACCINE INTO MUSCLE, PERC APPROACH [id number] 10/12/17 Assessment/Plan - Assessment Assessment: S/P KEN S/P electrolyte imbalance Acute decomp of Psychosis Type 2 DM Hx UTI - Plan Plan: Lab - Result Diagrams 11/01/17 06:48 Current Medications Acetaminophen (Tylenol) 650 mg PO Q6H PRN PRN Reason: mild to moderate pain Stop: 12/30/17 23:24 Acetaminophen/Hydrocodone Bitart ([place] 5mg/325mg) 1 tab PO Q6H PRN PRN Reason: Pain (Moderate) Stop: 12/30/17 23:24 Allopurinol (Zyloprim) 100 mg PO DAILY IMMANUEL Stop: 12/30/17 23:24 Last Admin: 11/01/17 10:54 Dose: 100 mg [place] Oil/[place] Balsam/Trypsin (Venelex) 1 appl TP DAILY IMMANUEL Stop: 12/30/17 23:24 Last Admin: 11/01/17 11:02 Dose: 1 appl Clonazepam (Klonopin) 1 mg PO BID IMMANUEL PRN Reason: Protocol Stop: 12/31/17 09:59 Famotidine (Pepcid) 20 mg PO BID IMMANUEL Stop: 12/30/17 23:24 Last Admin: 11/01/17 10:54 Dose: 20 mg Fluconazole (Diflucan) 100 mg PO DAILY IMMANUEL Stop: 12/30/17 23:24 Last Admin: 11/01/17 11:02 Dose: 100 mg Heparin Sodium (Porcine) (Heparin) 5,000 units SUBQ Q12HR IMMANUEL PRN Reason: Protocol Stop: 12/30/17 23:24 Last Admin: 11/01/17 10:59 Dose: 5,000 units Levofloxacin (Levaquin Pb) 500 mg in 100 mls @ 100 mls/hr IV Q24H [facility] Stop: 12/31/17 11:59 Insulin Aspart (Novolog Insulin Sliding Scale) 0 units SUBQ ACHS IMMANUEL PRN Reason: Protocol Stop: 12/30/17 23:24 Last Admin: 11/01/17 10:45 Dose: 2 units Insulin Aspart (Novolog Insulin Sliding Scale) 0 units SUBQ ACHS IMMANUEL PRN Reason: Protocol Stop: 12/31/17 07:29 Insulin Detemir (Levemir Insulin) 18 units SUBQ DAILY IMMANUEL PRN Reason: Protocol Stop: 12/30/17 23:24 Last Admin: 11/01/17 10:56 Dose: 18 units Lorazepam (Ativan) 0.5 mg PO Q6HR PRN; Protocol PRN Reason: agitation Stop: 12/30/17 23:24 Magnesium Hydroxide (Milk Of Magnesia) 30 ml PO HS PRN PRN Reason: Constipation Stop: 12/30/17 23:24 Metformin HCl (Glucophage) 1,000 mg PO DAILY [facility] Stop: 12/31/17 09:59 Metoprolol Succinate (Toprol Xl) 25 mg PO DAILY [facility] Stop: 12/30/17 23:24 Last Admin: 11/01/17 10:55 Dose: 25 mg Miscellaneous (Vte Chemical Prophylaxis Screen/ Admission) 1 ea MC PRN PRN PRN Reason: PROTOCOL Stop: 12/31/17 10:29 Olanzapine (Zyprexa Zydis) 5 mg PO DAILY IMMANUEL PRN Reason: Protocol Stop: 12/31/17 09:59 Zolpidem Tartrate (Ambien) 5 mg PO HS PRN PRN Reason: insomnia Stop: 12/30/17 23:24 Lab - Result Diagrams 11/01/17 06:48 kidney fnc remain stable encourage po intake psych meds
--- NOTE | 2017-11-05 15:43 | Infectious Disease Prog Note ---
Infectious Disease Subjective - Review of Systems Service Date: 11/05/17 Subjective: No fever Infectious Disease Objective - Results Result Diagrams: 11/01/17 06:48 Recent Labs: Laboratory Last Values Sodium 136 mEq/L (136-145) 11/01/17 06:48 Potassium 4.2 mEq/L (3.5-5.1) 11/01/17 06:48 Chloride 105 mEq/L (98-107) 11/01/17 06:48 Carbon Dioxide 28.6 mEq/L (21.0-31.0) 11/01/17 06:48 Anion Gap 6.6 (7.0-16.0) L 11/01/17 06:48 BUN 9 mg/dL (7-25) 11/01/17 06:48 Creatinine 0.9 mg/dL (0.7-1.3) 11/01/17 06:48 Est GFR ( Amer) TNP 11/01/17 06:48 Est GFR (Non-Af Amer) TNP 11/01/17 06:48 BUN/Creatinine Ratio 10.0 11/01/17 06:48 Glucose 169 mg/dL (70-105) H 11/01/17 06:48 POC Glucose 225 MG/DL (70 - 105) H 11/05/17 11:55 Calcium 8.8 mg/dL (8.6-10.3) 11/01/17 06:48 - Physical Exam Vitals and I&O: Vital Signs Temp 97.2 F 11/05/17 04:00 Pulse 91 11/05/17 10:23 Resp 16 11/05/17 04:00 BP 144/89 11/05/17 10:23 Pulse Ox 97 11/05/17 04:00 Intake & Output 11/04/17 11/05/17 11/05/17 18:59 06:59 18:59 Intake Total 240 Output Total 1000 Balance 240 -1000 Weight (lbs) 77.111 kg 77.111 kg 77.111 kg Intake: Oral 240 Output: Urine 1000 Other: # Bowel Movements 0 Active Medications: Current Medications Acetaminophen (Tylenol) 650 mg PO Q6H PRN PRN Reason: mild to moderate pain Stop: 12/30/17 23:24 Acetaminophen/Hydrocodone Bitart ([place] 5mg/325mg) 1 tab PO Q6H PRN PRN Reason: Pain (Moderate) Stop: 12/30/17 23:24 Allopurinol (Zyloprim) 100 mg PO DAILY IMMANUEL Stop: 12/30/17 23:24 Last Admin: 11/05/17 10:24 Dose: 100 mg [place] Oil/[place] Balsam/Trypsin (Venelex) 1 appl TP DAILY IMMANUEL Stop: 12/30/17 23:24 Last Admin: 11/05/17 10:25 Dose: 1 appl Clonazepam (Klonopin) 1 mg PO BID IMMANUEL PRN Reason: Protocol Stop: 12/31/17 09:59 Last Admin: 11/05/17 10:24 Dose: 1 mg Donepezil HCl (Aricept) 5 mg PO DAILY IMMANUEL Stop: 01/04/18 08:59 Last Admin: 11/05/17 10:23 Dose: 5 mg Famotidine (Pepcid) 20 mg PO BID IMMANUEL Stop: 12/30/17 23:24 Last Admin: 11/05/17 10:23 Dose: 20 mg Fluconazole (Diflucan) 100 mg PO DAILY IMMANUEL Stop: 12/30/17 23:24 Last Admin: 11/05/17 10:23 Dose: 100 mg Heparin Sodium (Porcine) (Heparin) 5,000 units SUBQ Q12HR IMMANUEL PRN Reason: Protocol Stop: 12/30/17 23:24 Last Admin: 11/05/17 10:30 Dose: 5,000 units Insulin Aspart (Novolog Insulin Sliding Scale) 0 units SUBQ ACHS IMMANUEL PRN Reason: Protocol Stop: 12/30/17 23:24 Last Admin: 11/05/17 12:27 Dose: 4 units Insulin Aspart (Novolog Insulin Sliding Scale) 0 units SUBQ ACHS IMMANUEL PRN Reason: Protocol Stop: 12/31/17 07:29 Last Admin: 11/04/17 10:54 Dose: Not Given Insulin Detemir (Levemir Insulin) 18 units SUBQ DAILY IMMANUEL PRN Reason: Protocol Stop: 12/30/17 23:24 Last Admin: 11/04/17 10:53 Dose: Not Given Magnesium Hydroxide (Milk Of Magnesia) 30 ml PO HS PRN PRN Reason: Constipation Stop: 12/30/17 23:24 Metformin HCl (Glucophage) 1,000 mg PO DAILY [facility] Stop: 12/31/17 09:59 Last Admin: 11/05/17 10:23 Dose: 1,000 mg Metoprolol Succinate (Toprol Xl) 25 mg PO DAILY IMMANUEL Stop: 12/30/17 23:24 Last Admin: 11/05/17 10:23 Dose: 25 mg Miscellaneous (Vte Chemical Prophylaxis Screen/ Admission) 1 ea MC PRN PRN PRN Reason: PROTOCOL Stop: 12/31/17 10:29 Mupirocin (Bactroban Oint) 1 appl NS BID IMMANUEL Stop: 11/07/17 09:01 Last Admin: 11/05/17 10:25 Dose: 1 appl Olanzapine (Zyprexa Zydis) 5 mg PO BID IMMANUEL PRN Reason: Protocol Stop: 01/02/18 08:59 Last Admin: 11/05/17 10:24 Dose: 5 mg Zolpidem Tartrate (Ambien) 5 mg PO HS PRN PRN Reason: insomnia Stop: 12/30/17 23:24 Last Admin: 11/03/17 19:55 Dose: 5 mg General: no acute distress, well developed, well nourished HEENT: atraumatic, normocephalic, moist mucous membrane Neck: supple, no thyromegaly Cardiovascular: S1S2, regular Lungs: clear to auscultation bilaterally, clear to percussion Abdomen: soft, no tender, no distended Extremities: no cyanosis, no clubbing, no edema Neurological: awake, alert, other Skin: other (SACRAL WOUND) - Procedures Procedures: Procedures Procedure Code Date JEWEL MUSC/FASCIA 20 SQ CM/< 62762 10/12/17 EXCISION OF RIGHT HIP MUSCLE, OPEN APPROACH [id number] 10/12/17 INTRODUCTION OF SERUM/TOX/VACCINE INTO MUSCLE, PERC APPROACH [id number] 10/12/17 Infectious Disease Assmt/Plan - Assessment Assessment: 1. Sacral decubitus ulcer. 2. UTI. Treated 3. Dementia. - Plan Plan: wound care.
[2017-11-05] MEDS: Insulin Detemir 100 units/mL 10mL Vial SUBQ SCH (17:47)
[2017-11-05 21:55] LABS: INR 0.91 (0.5-1.4); PROTHROMBIN TIME (TEST) 9.5 SECONDS (9.5-11.5)
--- NOTE | 2017-11-06 08:17 | General Progress Note ---
Subjective - Review of Systems Service Date: 11/06/17 Subjective: Patient still confused, irritable. Behavior still an issue. Contacted family members for this patient to consider referral to hospice evaluation. Objective - Results Result Diagrams: 11/01/17 06:48 Recent Labs: Laboratory Last Values PT 9.5 SECONDS (9.5-11.5) 11/05/17 21:35 INR 0.91 (0.5-1.4) 11/05/17 21:35 Sodium 136 mEq/L (136-145) 11/01/17 06:48 Potassium 4.2 mEq/L (3.5-5.1) 11/01/17 06:48 Chloride 105 mEq/L (98-107) 11/01/17 06:48 Carbon Dioxide 28.6 mEq/L (21.0-31.0) 11/01/17 06:48 Anion Gap 6.6 (7.0-16.0) L 11/01/17 06:48 BUN 9 mg/dL (7-25) 11/01/17 06:48 Creatinine 0.9 mg/dL (0.7-1.3) 11/01/17 06:48 Est GFR ( Amer) TNP 11/01/17 06:48 Est GFR (Non-Af Amer) TNP 11/01/17 06:48 BUN/Creatinine Ratio 10.0 11/01/17 06:48 Glucose 169 mg/dL (70-105) H 11/01/17 06:48 POC Glucose 137 MG/DL (70 - 105) H 11/06/17 06:32 Calcium 8.8 mg/dL (8.6-10.3) 11/01/17 06:48 - Physical Exam Vitals and I&O: Vital Signs Temp 97.6 F 11/06/17 00:00 Pulse 85 11/06/17 00:00 Resp 20 11/06/17 00:00 BP 138/79 11/06/17 00:00 Pulse Ox 97 11/05/17 04:00 Intake & Output 11/05/17 11/06/17 11/06/17 18:59 06:59 18:59 Weight (lbs) 77.111 kg Active Medications: Current Medications Acetaminophen (Tylenol) 650 mg PO Q6H PRN PRN Reason: mild to moderate pain Stop: 12/30/17 23:24 Acetaminophen/Hydrocodone Bitart ([place] 5mg/325mg) 1 tab PO Q6H PRN PRN Reason: Pain (Moderate) Stop: 12/30/17 23:24 Allopurinol (Zyloprim) 100 mg PO DAILY IMMANUEL Stop: 12/30/17 23:24 Last Admin: 11/05/17 10:24 Dose: 100 mg [place] Oil/[place] Balsam/Trypsin (Venelex) 1 appl TP DAILY IMMANUEL Stop: 12/30/17 23:24 Last Admin: 11/05/17 10:25 Dose: 1 appl Clonazepam (Klonopin) 1 mg PO BID IMMANUEL PRN Reason: Protocol Stop: 12/31/17 09:59 Last Admin: 11/05/17 17:54 Dose: 1 mg Donepezil HCl (Aricept) 5 mg PO DAILY IMMANUEL Stop: 01/04/18 08:59 Last Admin: 11/05/17 10:23 Dose: 5 mg Famotidine (Pepcid) 20 mg PO BID IMMANUEL Stop: 12/30/17 23:24 Last Admin: 11/05/17 17:54 Dose: 20 mg Fluconazole (Diflucan) 100 mg PO DAILY IMMANUEL Stop: 12/30/17 23:24 Last Admin: 11/05/17 10:23 Dose: 100 mg Heparin Sodium (Porcine) (Heparin) 5,000 units SUBQ Q12HR IMMANUEL PRN Reason: Protocol Stop: 12/30/17 23:24 Last Admin: 11/05/17 21:30 Dose: Not Given Insulin Aspart (Novolog Insulin Sliding Scale) 0 units SUBQ ACHS IMMANUEL PRN Reason: Protocol Stop: 12/30/17 23:24 Last Admin: 11/05/17 21:29 Dose: 8 units Insulin Aspart (Novolog Insulin Sliding Scale) 0 units SUBQ ACHS IMMANUEL PRN Reason: Protocol Stop: 12/31/17 07:29 Last Admin: 11/04/17 10:54 Dose: Not Given Insulin Detemir (Levemir Insulin) 18 units SUBQ DAILY IMMANUEL PRN Reason: Protocol Stop: 12/30/17 23:24 Last Admin: 11/05/17 17:47 Dose: Not Given Magnesium Hydroxide (Milk Of Magnesia) 30 ml PO HS PRN PRN Reason: Constipation Stop: 12/30/17 23:24 Metformin HCl (Glucophage) 1,000 mg PO DAILY [facility] Stop: 12/31/17 09:59 Last Admin: 11/05/17 10:23 Dose: 1,000 mg Metoprolol Succinate (Toprol Xl) 25 mg PO DAILY [facility] Stop: 12/30/17 23:24 Last Admin: 11/05/17 10:23 Dose: 25 mg Miscellaneous (Vte Chemical Prophylaxis Screen/ Admission) 1 ea MC PRN PRN PRN Reason: PROTOCOL Stop: 12/31/17 10:29 Mupirocin (Bactroban Oint) 1 appl NS BID [facility] Stop: 11/07/17 09:01 Last Admin: 11/05/17 17:55 Dose: Not Given Olanzapine (Zyprexa Zydis) 10 mg PO BID IMMANUEL PRN Reason: Protocol Stop: 01/05/18 07:53 Zolpidem Tartrate (Ambien) 5 mg PO HS PRN PRN Reason: insomnia Stop: 12/30/17 23:24 Last Admin: 11/03/17 19:55 Dose: 5 mg General: Alert, No acute distress HEENT: Atraumatic, PERRLA, EOMI Neck: Supple, JVD Cardiovascular: Regular rate, Normal S1, Normal S2 Lungs: Clear to auscultation Abdomen: Bowel sounds, Soft Extremities: no Clubbing, no Cyanosis, no Edema Neurological: Sensation intact Skin: no Rash - Procedures Procedures: Procedures Procedure Code Date JEWEL MUSC/FASCIA 20 SQ CM/< 73916 10/12/17 EXCISION OF RIGHT HIP MUSCLE, OPEN APPROACH [id number] 10/12/17 INTRODUCTION OF SERUM/TOX/VACCINE INTO MUSCLE, PERC APPROACH [id number] 10/12/17 Assessment/Plan - Assessment Assessment: psychosis dementia Alzheimer's dementia diabetes mellitus s/p wound debridement of sacral decubiti UTI hyperglycemia - Plan Plan: continue current medications. discharge planning. family considering hospice eval Nutritional Asmnt/Malnutr-PDOC - Dietary Evaluation Malnutrition Findings (Please click <Entered> for more info): Nutritional Asmnt/Malnutrition Start: 11/05/17 16: 25 Text: Status: Complete Freq: Document 11/05/17 16:25 GREY (Rec: 11/05/17 16:31 LCHEATHER [id number]) Nutritional Asmnt/Malnutrition Patient General Information Nutritional Screening Moderate Risk Diagnosis dehydration Pertinent Medical Hx/Surgical Hx DM, dementia, depression, psychosis, schizophrenia, chronic renal insuff Subjective Information Pt is agitated, on 1:1 sitter. Per EMR, PO intake 25-75%, avg 50%. Current Diet Order/ Nutrition Support pureed, CCHO 60gm Pertinent Medications novolov, levemir, glucophage Pertinent Labs 11/03- POC 181-316 Nutritional Hx/Data Height 1.8 m Height (Calculated Centimeters) 180.3 Current Weight (lbs) 77.111 kg Weight (Calculated Kilograms) 77.1 Weight (Calculated Grams) 00978.7 [place] Body Weight 172 Body Mass Index (BMI) 23.7 Weight Status Approriate GI Symptoms GI Symptoms None Last BM 11/03 Difficult in: None Skin Integrity/Comment: pressure ulcer, decubitus Current %PO Fair (50-74%) Estimated Nutritional Goals BEE in Kcals: Using Current wt Calories/Kcals/Kg 25-30 Kcals Calculated 1202-7035 Protein: Using Current wt Protein g/k-1.2 Protein Calculated 77-92 Fluid: ml 1925-2310ml (1ml/kcal) Nutritional Problem 1. Problem Problem altered nutrition related lab values Etiology hx of DM Signs/Symptoms: glucose 169, POC 181-316 Malnutrition Alert Protein-Calorie Malnutrition N/A Is there a minimum of two criteria No selected? Query Text:Check all the applicable criteria. A minimum of two criteria are recommended for diagnosis of either severe or non-severe malnutrition. Intervention/Recommendation Comments 1. Continue with current diet as ordered. 2. Monitor PO intake, wt, labs and skin integrity 3. F/U as moderate risk in 3-5 days, 11/08-11/10 Expected Outcomes/Goals Expected Outcomes/Goals 1. PO intake to meet at least 75% of nutritional needs. 2. Wt stability, skin to remain intact, labs to approach WNL.
--- NOTE | 2017-11-06 08:29 | Progress Notes ---
DATE: SUBJECTIVE: Chart reviewed and the patient interviewed. Also discussed the patient's condition with the staff and reviewed records and labs. The patient continued to be confused, restless and easily agitated. The patient also is still at times talking to himself in German language. On the other hand, slightly easier to redirect him. He also is compliant with taking his medications with no side effects of medications. ASSESSMENT: The patient is still confused and psychotic. TREATMENT PLAN: We will continue monitoring his behavior and continue Zyprexa 5 mg twice a day. Also because of his periods of agitation and irritability, we will increase Zyprexa to 10 mg twice a day. Also, continue to follow up his behavior and his condition closely. Also, it seems that corrections caseworker is still working on placement issue. JOB# [id number]
[2017-11-06] MEDS: INSULIN ASPART SLIDING SCALE 100 UNITS/ML UNIT SUBQ SCH ×5 (10:05→21:45)
[2017-11-06] MEDS: Venelex 60gm Tube TP SCH (10:06)
[2017-11-06] MEDS: OLANZapine 5 mg Oral Disintegrating Tab PO SCH ×2 (10:10→17:26)
--- NOTE | 2017-11-06 12:49 | General Progress Note ---
Subjective - Review of Systems Service Date: 11/06/17 Subjective: lying in bed, periods of agitation Objective - Results Result Diagrams: 11/01/17 06:48 Recent Labs: Laboratory Last Values PT 9.5 SECONDS (9.5-11.5) 11/05/17 21:35 INR 0.91 (0.5-1.4) 11/05/17 21:35 Sodium 136 mEq/L (136-145) 11/01/17 06:48 Potassium 4.2 mEq/L (3.5-5.1) 11/01/17 06:48 Chloride 105 mEq/L (98-107) 11/01/17 06:48 Carbon Dioxide 28.6 mEq/L (21.0-31.0) 11/01/17 06:48 Anion Gap 6.6 (7.0-16.0) L 11/01/17 06:48 BUN 9 mg/dL (7-25) 11/01/17 06:48 Creatinine 0.9 mg/dL (0.7-1.3) 11/01/17 06:48 Est GFR ( Amer) TNP 11/01/17 06:48 Est GFR (Non-Af Amer) TNP 11/01/17 06:48 BUN/Creatinine Ratio 10.0 11/01/17 06:48 Glucose 169 mg/dL (70-105) H 11/01/17 06:48 POC Glucose 259 MG/DL (70 - 105) H 11/06/17 11:30 Calcium 8.8 mg/dL (8.6-10.3) 11/01/17 06:48 - Physical Exam Vitals and I&O: Vital Signs Temp 98.0 F 11/06/17 08:00 Pulse 78 11/06/17 10:07 Resp 20 11/06/17 08:00 BP 125/62 11/06/17 10:07 Pulse Ox 97 11/05/17 04:00 Intake & Output 11/05/17 11/06/17 11/06/17 18:59 06:59 18:59 Intake Total 400 120 Output Total 500 Balance -100 120 Weight (lbs) 77.111 kg 77.564 kg 76.657 kg Intake: Oral 400 120 Output: Urine 500 Active Medications: Current Medications Acetaminophen (Tylenol) 650 mg PO Q6H PRN PRN Reason: mild to moderate pain Stop: 12/30/17 23:24 Acetaminophen/Hydrocodone Bitart ([place] 5mg/325mg) 1 tab PO Q6H PRN PRN Reason: Pain (Moderate) Stop: 12/30/17 23:24 Allopurinol (Zyloprim) 100 mg PO DAILY [facility] Stop: 12/30/17 23:24 Last Admin: 11/06/17 10:09 Dose: 100 mg [place] Oil/[place] Balsam/Trypsin (Venelex) 1 appl TP DAILY [facility] Stop: 12/30/17 23:24 Last Admin: 11/06/17 10:06 Dose: 1 appl Clonazepam (Klonopin) 1 mg PO BID [facility] PRN Reason: Protocol Stop: 12/31/17 09:59 Last Admin: 11/06/17 10:09 Dose: 1 mg Donepezil HCl (Aricept) 5 mg PO DAILY [facility] Stop: 01/04/18 08:59 Last Admin: 11/06/17 10:10 Dose: 5 mg Famotidine (Pepcid) 20 mg PO BID [facility] Stop: 12/30/17 23:24 Last Admin: 11/06/17 10:09 Dose: 20 mg Fluconazole (Diflucan) 100 mg PO DAILY [facility] Stop: 12/30/17 23:24 Last Admin: 11/06/17 10:09 Dose: 100 mg Heparin Sodium (Porcine) (Heparin) 5,000 units SUBQ Q12HR [facility] PRN Reason: Protocol Stop: 12/30/17 23:24 Last Admin: 11/06/17 10:11 Dose: Not Given Insulin Aspart (Novolog Insulin Sliding Scale) 0 units SUBQ ACHS [facility] PRN Reason: Protocol Stop: 12/30/17 23:24 Last Admin: 11/05/17 21:29 Dose: 8 units Insulin Aspart (Novolog Insulin Sliding Scale) 0 units SUBQ ACHS [facility] PRN Reason: Protocol Stop: 12/31/17 07:29 Last Admin: 11/06/17 10:05 Dose: Not Given Insulin Detemir (Levemir Insulin) 18 units SUBQ DAILY [facility] PRN Reason: Protocol Stop: 12/30/17 23:24 Last Admin: 11/05/17 17:47 Dose: Not Given Magnesium Hydroxide (Milk Of Magnesia) 30 ml PO HS PRN PRN Reason: Constipation Stop: 12/30/17 23:24 Metformin HCl (Glucophage) 1,000 mg PO DAILY [facility] Stop: 12/31/17 09:59 Last Admin: 11/06/17 10:10 Dose: 1,000 mg Metoprolol Succinate (Toprol Xl) 25 mg PO DAILY [facility] Stop: 12/30/17 23:24 Last Admin: 11/06/17 10:07 Dose: 25 mg Miscellaneous (Vte Chemical Prophylaxis Screen/ Admission) 1 ea [facility] PRN PRN PRN Reason: PROTOCOL Stop: 12/31/17 10:29 Mupirocin (Bactroban Oint) 1 appl NS BID [facility] Stop: 11/07/17 09:01 Last Admin: 11/06/17 10:06 Dose: 1 appl Olanzapine (Zyprexa Zydis) 10 mg PO BID [facility] PRN Reason: Protocol Stop: 01/05/18 07:53 Last Admin: 11/06/17 10:10 Dose: 10 mg Zolpidem Tartrate (Ambien) 5 mg PO HS PRN PRN Reason: insomnia Stop: 12/30/17 23:24 Last Admin: 11/03/17 19:55 Dose: 5 mg General: Alert, No acute distress HEENT: Atraumatic, PERRLA, EOMI Neck: Supple, JVD Cardiovascular: Regular rate, Normal S1, Normal S2 Lungs: Clear to auscultation Abdomen: Bowel sounds, Soft Extremities: no Clubbing, no Cyanosis, no Edema Neurological: Sensation intact Skin: no Rash - Procedures Procedures: Procedures Procedure Code Date JEWEL MUSC/FASCIA 20 SQ CM/< 84137 10/12/17 EXCISION OF RIGHT HIP MUSCLE, OPEN APPROACH [id number] 10/12/17 INTRODUCTION OF SERUM/TOX/VACCINE INTO MUSCLE, PERC APPROACH [id number] 10/12/17 Assessment/Plan - Assessment Assessment: S/P KEN S/P electrolyte imbalance Acute decomp of Psychosis Type 2 DM Hx UTI - Plan Plan: Lab - Result Diagrams 11/01/17 06:48 Current Medications Acetaminophen (Tylenol) 650 mg PO Q6H PRN PRN Reason: mild to moderate pain Stop: 12/30/17 23:24 Acetaminophen/Hydrocodone Bitart ([place] 5mg/325mg) 1 tab PO Q6H PRN PRN Reason: Pain (Moderate) Stop: 12/30/17 23:24 Allopurinol (Zyloprim) 100 mg PO DAILY [facility] Stop: 12/30/17 23:24 Last Admin: 11/01/17 10:54 Dose: 100 mg [place] Oil/[place] Balsam/Trypsin (Venelex) 1 appl TP DAILY [facility] Stop: 12/30/17 23:24 Last Admin: 11/01/17 11:02 Dose: 1 appl Clonazepam (Klonopin) 1 mg PO BID [facility] PRN Reason: Protocol Stop: 12/31/17 09:59 Famotidine (Pepcid) 20 mg PO BID [facility] Stop: 12/30/17 23:24 Last Admin: 11/01/17 10:54 Dose: 20 mg Fluconazole (Diflucan) 100 mg PO DAILY [facility] Stop: 12/30/17 23:24 Last Admin: 11/01/17 11:02 Dose: 100 mg Heparin Sodium (Porcine) (Heparin) 5,000 units SUBQ Q12HR [facility] PRN Reason: Protocol Stop: 12/30/17 23:24 Last Admin: 11/01/17 10:59 Dose: 5,000 units Levofloxacin (Levaquin Pb) 500 mg in 100 mls @ 100 mls/hr IV Q24H [facility] Stop: 12/31/17 11:59 Insulin Aspart (Novolog Insulin Sliding Scale) 0 units SUBQ ACHS [facility] PRN Reason: Protocol Stop: 12/30/17 23:24 Last Admin: 11/01/17 10:45 Dose: 2 units Insulin Aspart (Novolog Insulin Sliding Scale) 0 units SUBQ ACHS [facility] PRN Reason: Protocol Stop: 12/31/17 07:29 Insulin Detemir (Levemir Insulin) 18 units SUBQ DAILY [facility] PRN Reason: Protocol Stop: 12/30/17 23:24 Last Admin: 11/01/17 10:56 Dose: 18 units Lorazepam (Ativan) 0.5 mg PO Q6HR PRN; Protocol PRN Reason: agitation Stop: 12/30/17 23:24 Magnesium Hydroxide (Milk Of Magnesia) 30 ml PO HS PRN PRN Reason: Constipation Stop: 12/30/17 23:24 Metformin HCl (Glucophage) 1,000 mg PO DAILY [facility] Stop: 12/31/17 09:59 Metoprolol Succinate (Toprol Xl) 25 mg PO DAILY [facility] Stop: 12/30/17 23:24 Last Admin: 11/01/17 10:55 Dose: 25 mg Miscellaneous (Vte Chemical Prophylaxis Screen/ Admission) 1 ea [facility] PRN PRN PRN Reason: PROTOCOL Stop: 12/31/17 10:29 Olanzapine (Zyprexa Zydis) 5 mg PO DAILY [facility] PRN Reason: Protocol Stop: 12/31/17 09:59 Zolpidem Tartrate (Ambien) 5 mg PO HS PRN PRN Reason: insomnia Stop: 12/30/17 23:24 Lab - Result Diagrams 11/01/17 06:48 kidney fnc remain stable encourage po intake psych meds Nutritional Asmnt/Malnutr-PDOC - Dietary Evaluation Malnutrition Findings (Please click <Entered> for more info): Nutritional Asmnt/Malnutrition Start: 11/05/17 16: 25 Text: Status: Complete Freq: Document 11/05/17 16:25 GREY (Rec: 11/05/17 16:31 GREY [email or web address]) Nutritional Asmnt/Malnutrition Patient General Information Nutritional Screening Moderate Risk Diagnosis dehydration Pertinent Medical Hx/Surgical Hx DM, dementia, depression, psychosis, schizophrenia, chronic renal insuff Subjective Information Pt is agitated, on 1:1 sitter. Per EMR, PO intake 25-75%, avg 50%. Current Diet Order/ Nutrition Support pureed, CCHO 60gm Pertinent Medications novolov, levemir, glucophage Pertinent Labs 11/03- POC 181-316 Nutritional Hx/Data Height 1.8 m Height (Calculated Centimeters) 180.3 Current Weight (lbs) 77.111 kg Weight (Calculated Kilograms) 77.1 Weight (Calculated Grams) 30532.7 [place] Body Weight 172 Body Mass Index (BMI) 23.7 Weight Status Approriate GI Symptoms GI Symptoms None Last BM 11/03 Difficult in: None Skin Integrity/Comment: pressure ulcer, decubitus Current %PO Fair (50-74%) Estimated Nutritional Goals BEE in Kcals: Using Current wt Calories/Kcals/Kg 25-30 Kcals Calculated 0760-5667 Protein: Using Current wt Protein g/k-1.2 Protein Calculated 77-92 Fluid: ml 1925-2310ml (1ml/kcal) Nutritional Problem 1. Problem Problem altered nutrition related lab values Etiology hx of DM Signs/Symptoms: glucose 169, POC 181-316 Malnutrition Alert Protein-Calorie Malnutrition N/A Is there a minimum of two criteria No selected? Query Text:Check all the applicable criteria. A minimum of two criteria are recommended for diagnosis of either severe or non-severe malnutrition. Intervention/Recommendation Comments 1. Continue with current diet as ordered. 2. Monitor PO intake, wt, labs and skin integrity 3. F/U as moderate risk in 3-5 days, 11/08-11/10 Expected Outcomes/Goals Expected Outcomes/Goals 1. PO intake to meet at least 75% of nutritional needs. 2. Wt stability, skin to remain intact, labs to approach WNL.
--- NOTE | 2017-11-06 15:55 | Infectious Disease Prog Note ---
Infectious Disease Subjective - Review of Systems Service Date: 11/06/17 Subjective: No fever Infectious Disease Objective - Results Result Diagrams: 11/01/17 06:48 Recent Labs: Laboratory Last Values PT 9.5 SECONDS (9.5-11.5) 11/05/17 21:35 INR 0.91 (0.5-1.4) 11/05/17 21:35 Sodium 136 mEq/L (136-145) 11/01/17 06:48 Potassium 4.2 mEq/L (3.5-5.1) 11/01/17 06:48 Chloride 105 mEq/L (98-107) 11/01/17 06:48 Carbon Dioxide 28.6 mEq/L (21.0-31.0) 11/01/17 06:48 Anion Gap 6.6 (7.0-16.0) L 11/01/17 06:48 BUN 9 mg/dL (7-25) 11/01/17 06:48 Creatinine 0.9 mg/dL (0.7-1.3) 11/01/17 06:48 Est GFR ( Amer) TNP 11/01/17 06:48 Est GFR (Non-Af Amer) TNP 11/01/17 06:48 BUN/Creatinine Ratio 10.0 11/01/17 06:48 Glucose 169 mg/dL (70-105) H 11/01/17 06:48 POC Glucose 259 MG/DL (70 - 105) H 11/06/17 11:30 Calcium 8.8 mg/dL (8.6-10.3) 11/01/17 06:48 - Physical Exam Vitals and I&O: Vital Signs Temp 98.0 F 11/06/17 08:00 Pulse 78 11/06/17 10:07 Resp 20 11/06/17 08:00 BP 125/62 11/06/17 10:07 Pulse Ox 97 11/05/17 04:00 Intake & Output 11/05/17 11/06/17 11/06/17 18:59 06:59 18:59 Intake Total 400 120 Output Total 500 Balance -100 120 Weight (lbs) 77.111 kg 77.564 kg 76.657 kg Intake: Oral 400 120 Output: Urine 500 Active Medications: Current Medications Acetaminophen (Tylenol) 650 mg PO Q6H PRN PRN Reason: mild to moderate pain Stop: 12/30/17 23:24 Acetaminophen/Hydrocodone Bitart ([place] 5mg/325mg) 1 tab PO Q6H PRN PRN Reason: Pain (Moderate) Stop: 12/30/17 23:24 Allopurinol (Zyloprim) 100 mg PO DAILY [facility] [place] Stop: 12/30/17 23:24 Last Admin: 11/06/17 10:09 Dose: 100 mg [place] Oil/[place] Balsam/Trypsin (Venelex) 1 appl TP DAILY [facility] Stop: 12/30/17 23:24 Last Admin: 11/06/17 10:06 Dose: 1 appl Clonazepam (Klonopin) 1 mg PO BID [facility] PRN Reason: Protocol Stop: 12/31/17 09:59 Last Admin: 11/06/17 10:09 Dose: 1 mg Donepezil HCl (Aricept) 5 mg PO DAILY [facility] Stop: 01/04/18 08:59 Last Admin: 11/06/17 10:10 Dose: 5 mg Famotidine (Pepcid) 20 mg PO BID [facility] Stop: 12/30/17 23:24 Last Admin: 11/06/17 10:09 Dose: 20 mg Fluconazole (Diflucan) 100 mg PO DAILY [facility] Stop: 12/30/17 23:24 Last Admin: 11/06/17 10:09 Dose: 100 mg Heparin Sodium (Porcine) (Heparin) 5,000 units SUBQ Q12HR [facility] PRN Reason: Protocol Stop: 12/30/17 23:24 Last Admin: 11/06/17 10:11 Dose: Not Given Insulin Aspart (Novolog Insulin Sliding Scale) 0 units SUBQ ACHS [facility] PRN Reason: Protocol Stop: 12/30/17 23:24 Last Admin: 11/05/17 21:29 Dose: 8 units Insulin Aspart (Novolog Insulin Sliding Scale) 0 units SUBQ ACHS [facility] PRN Reason: Protocol Stop: 12/31/17 07:29 Last Admin: 11/06/17 13:11 Dose: 6 units Insulin Detemir (Levemir Insulin) 18 units SUBQ DAILY [facility] PRN Reason: Protocol Stop: 12/30/17 23:24 Last Admin: 11/05/17 17:47 Dose: Not Given Magnesium Hydroxide (Milk Of Magnesia) 30 ml PO HS PRN PRN Reason: Constipation Stop: 12/30/17 23:24 Metformin HCl (Glucophage) 1,000 mg PO DAILY [facility] [place] Stop: 12/31/17 09:59 Last Admin: 11/06/17 10:10 Dose: 1,000 mg Metoprolol Succinate (Toprol Xl) 25 mg PO DAILY [facility] Stop: 12/30/17 23:24 Last Admin: 11/06/17 10:07 Dose: 25 mg Miscellaneous (Vte Chemical Prophylaxis Screen/ Admission) 1 ea [facility] PRN PRN PRN Reason: PROTOCOL Stop: 12/31/17 10:29 Mupirocin (Bactroban Oint) 1 appl NS BID [facility] Stop: 11/07/17 09:01 Last Admin: 11/06/17 10:06 Dose: 1 appl Olanzapine (Zyprexa Zydis) 10 mg PO BID [facility] PRN Reason: Protocol Stop: 01/05/18 07:53 Last Admin: 11/06/17 10:10 Dose: 10 mg Zolpidem Tartrate (Ambien) 5 mg PO HS PRN PRN Reason: insomnia Stop: 12/30/17 23:24 Last Admin: 11/03/17 19:55 Dose: 5 mg General: no acute distress, well developed, well nourished HEENT: atraumatic, normocephalic, PERRLA, EOMI Neck: supple, no thyromegaly Cardiovascular: S1S2, regular Lungs: clear to auscultation bilaterally, clear to percussion Abdomen: soft, no tender, no distended, no mass Extremities: no cyanosis, no clubbing Neurological: awake, alert Skin: other (sacral decubiti.) - Procedures Procedures: Procedures Procedure Code Date JEWEL MUSC/FASCIA 20 SQ CM/< 47352 10/12/17 EXCISION OF RIGHT HIP MUSCLE, OPEN APPROACH [id number] 10/12/17 INTRODUCTION OF SERUM/TOX/VACCINE INTO MUSCLE, PERC APPROACH [id number] 10/12/17 Infectious Disease Assmt/Plan - Assessment Assessment: 1. Sacral decubitus ulcer. 2. UTI. Treated 3. Dementia. - Plan Plan: wound care. Nutritional Asmnt/Malnutr-PDOC - Dietary Evaluation Malnutrition Findings (Please click <Entered> for more info): Nutritional Asmnt/Malnutrition Start: 11/05/17 16: 25 Text: Status: Complete Freq: Document 11/05/17 16:25 LCHENG (Rec: 11/05/17 16:31 LCHENG [email or web address]) Nutritional Asmnt/Malnutrition Patient General Information Nutritional Screening Moderate Risk Diagnosis dehydration Pertinent Medical Hx/Surgical Hx DM, dementia, depression, psychosis, schizophrenia, chronic renal insuff Subjective Information Pt is agitated, on 1:1 sitter. Per EMR, PO intake 25-75%, avg 50%. Current Diet Order/ Nutrition Support pureed, CCHO 60gm Pertinent Medications novolov, levemir, glucophage Pertinent Labs 11/03- POC 181-316 Nutritional Hx/Data Height 1.8 m Height (Calculated Centimeters) 180.3 Current Weight (lbs) 77.111 kg Weight (Calculated Kilograms) 77.1 Weight (Calculated Grams) 01397.7 [place] Body Weight 172 Body Mass Index (BMI) 23.7 Weight Status Approriate GI Symptoms GI Symptoms None Last BM 11/03 Difficult in: None Skin Integrity/Comment: pressure ulcer, decubitus Current %PO Fair (50-74%) Estimated Nutritional Goals BEE in Kcals: Using Current wt Calories/Kcals/Kg 25-30 Kcals Calculated 6400-9774 Protein: Using Current wt Protein g/k-1.2 Protein Calculated 77-92 Fluid: ml 1925-2310ml (1ml/kcal) Nutritional Problem 1. Problem Problem altered nutrition related lab values Etiology hx of DM Signs/Symptoms: glucose 169, POC 181-316 Malnutrition Alert Protein-Calorie Malnutrition N/A Is there a minimum of two criteria No selected? Query Text:Check all the applicable criteria. A minimum of two criteria are recommended for diagnosis of either severe or non-severe malnutrition. Intervention/Recommendation Comments 1. Continue with current diet as ordered. 2. Monitor PO intake, wt, labs and skin integrity 3. F/U as moderate risk in 3-5 days, 11/08-11/10 Expected Outcomes/Goals Expected Outcomes/Goals 1. PO intake to meet at least 75% of nutritional needs. 2. Wt stability, skin to remain intact, labs to approach WNL.
[2017-11-06] MEDS: Insulin Detemir 100 units/mL 10mL Vial SUBQ SCH (17:29)
--- NOTE | 2017-11-07 08:09 | General Progress Note ---
Subjective - Review of Systems Service Date: 11/07/17 Subjective: Patient resting comfortably in bed. no acute distress. restraints discontinued since yesterday. Objective - Results Result Diagrams: 11/01/17 06:48 Recent Labs: Laboratory Last Values PT 9.5 SECONDS (9.5-11.5) 11/05/17 21:35 INR 0.91 (0.5-1.4) 11/05/17 21:35 Sodium 136 mEq/L (136-145) 11/01/17 06:48 Potassium 4.2 mEq/L (3.5-5.1) 11/01/17 06:48 Chloride 105 mEq/L (98-107) 11/01/17 06:48 Carbon Dioxide 28.6 mEq/L (21.0-31.0) 11/01/17 06:48 Anion Gap 6.6 (7.0-16.0) L 11/01/17 06:48 BUN 9 mg/dL (7-25) 11/01/17 06:48 Creatinine 0.9 mg/dL (0.7-1.3) 11/01/17 06:48 Est GFR ( Amer) TNP 11/01/17 06:48 Est GFR (Non-Af Amer) TNP 11/01/17 06:48 BUN/Creatinine Ratio 10.0 11/01/17 06:48 Glucose 169 mg/dL (70-105) H 11/01/17 06:48 POC Glucose 224 MG/DL (70 - 105) H 11/07/17 06:09 Calcium 8.8 mg/dL (8.6-10.3) 11/01/17 06:48 - Physical Exam Vitals and I&O: Vital Signs Temp 98.8 F 11/07/17 04:00 Pulse 90 11/07/17 04:00 Resp 16 11/07/17 04:00 BP 120/61 11/07/17 04:00 Pulse Ox 97 11/05/17 04:00 Intake & Output 11/06/17 11/07/17 11/07/17 18:59 06:59 18:59 Intake Total 120 500 Output Total 350 Balance 120 150 Weight (lbs) 76.657 kg 77.111 kg Intake: Oral 120 500 Output: Urine 350 Other: # Bowel Movements 3 Active Medications: Current Medications Acetaminophen (Tylenol) 650 mg PO Q6H PRN PRN Reason: mild to moderate pain Stop: 12/30/17 23:24 Acetaminophen/Hydrocodone Bitart ([place] 5mg/325mg) 1 tab PO Q6H PRN PRN Reason: Pain (Moderate) Stop: 12/30/17 23:24 Allopurinol (Zyloprim) 100 mg PO DAILY [facility] Stop: 12/30/17 23:24 Last Admin: 11/06/17 10:09 Dose: 100 mg [place] Oil/[place] Balsam/Trypsin (Venelex) 1 appl TP DAILY [facility] Stop: 12/30/17 23:24 Last Admin: 11/06/17 10:06 Dose: 1 appl Clonazepam (Klonopin) 1 mg PO BID [facility] PRN Reason: Protocol Stop: 12/31/17 09:59 Last Admin: 11/06/17 17:25 Dose: 1 mg Donepezil HCl (Aricept) 5 mg PO DAILY [facility] Stop: 01/04/18 08:59 Last Admin: 11/06/17 10:10 Dose: 5 mg Famotidine (Pepcid) 20 mg PO BID [facility] Stop: 12/30/17 23:24 Last Admin: 11/06/17 17:25 Dose: 20 mg Fluconazole (Diflucan) 100 mg PO DAILY [facility] Stop: 12/30/17 23:24 Last Admin: 11/06/17 10:09 Dose: 100 mg Heparin Sodium (Porcine) (Heparin) 5,000 units SUBQ Q12HR [facility] PRN Reason: Protocol Stop: 12/30/17 23:24 Last Admin: 11/06/17 21:35 Dose: 5,000 units Insulin Aspart (Novolog Insulin Sliding Scale) 0 units SUBQ ACHS [facility] PRN Reason: Protocol Stop: 12/30/17 23:24 Last Admin: 11/06/17 21:45 Dose: 6 units Insulin Aspart (Novolog Insulin Sliding Scale) 0 units SUBQ ACHS [facility] PRN Reason: Protocol Stop: 12/31/17 07:29 Last Admin: 11/06/17 13:11 Dose: 6 units Insulin Detemir (Levemir Insulin) 18 units SUBQ DAILY [facility] PRN Reason: Protocol Stop: 12/30/17 23:24 Last Admin: 11/06/17 17:29 Dose: Not Given Magnesium Hydroxide (Milk Of Magnesia) 30 ml PO HS PRN PRN Reason: Constipation Stop: 12/30/17 23:24 Metformin HCl (Glucophage) 1,000 mg PO DAILY [facility] Stop: 12/31/17 09:59 Last Admin: 11/06/17 10:10 Dose: 1,000 mg Metoprolol Succinate (Toprol Xl) 25 mg PO DAILY [facility] Stop: 12/30/17 23:24 Last Admin: 11/06/17 10:07 Dose: 25 mg Miscellaneous (Vte Chemical Prophylaxis Screen/ Admission) 1 ea [facility] PRN PRN PRN Reason: PROTOCOL Stop: 12/31/17 10:29 Mupirocin (Bactroban Oint) 1 appl NS BID [facility] Stop: 11/07/17 09:01 Last Admin: 11/06/17 17:30 Dose: Not Given Olanzapine (Zyprexa Zydis) 10 mg PO BID [facility] PRN Reason: Protocol Stop: 01/05/18 07:53 Last Admin: 11/06/17 17:26 Dose: 10 mg Zolpidem Tartrate (Ambien) 5 mg PO HS PRN PRN Reason: insomnia Stop: 12/30/17 23:24 Last Admin: 11/03/17 19:55 Dose: 5 mg General: Alert, No acute distress HEENT: Atraumatic, PERRLA, EOMI Neck: Supple, JVD Cardiovascular: Regular rate, Normal S1, Normal S2 Lungs: Clear to auscultation Abdomen: Bowel sounds, Soft Extremities: no Clubbing, no Cyanosis, no Edema Neurological: Sensation intact Skin: no Rash - Procedures Procedures: Procedures Procedure Code Date JEWEL MUSC/FASCIA 20 SQ CM/< 54632 10/12/17 EXCISION OF RIGHT HIP MUSCLE, OPEN APPROACH [id number] 10/12/17 INTRODUCTION OF SERUM/TOX/VACCINE INTO MUSCLE, PERC APPROACH [id number] 10/12/17 Assessment/Plan - Assessment Assessment: psychosis dementia Alzheimer's dementia diabetes mellitus s/p wound debridement of sacral decubiti UTI hyperglycemia - Plan Plan: continue current medications. discharge planning. Nutritional Asmnt/Malnutr-PDOC - Dietary Evaluation Malnutrition Findings (Please click <Entered> for more info): Nutritional Asmnt/Malnutrition Start: 11/05/17 16: 25 Text: Status: Complete Freq: Document 11/05/17 16:25 GREY (Rec: 11/05/17 16:31 DEMIG [email or web address]) Nutritional Asmnt/Malnutrition Patient General Information Nutritional Screening Moderate Risk Diagnosis dehydration Pertinent Medical Hx/Surgical Hx DM, dementia, depression, psychosis, schizophrenia, chronic renal insuff Subjective Information Pt is agitated, on 1:1 sitter. Per EMR, PO intake 25-75%, avg 50%. Current Diet Order/ Nutrition Support pureed, CCHO 60gm Pertinent Medications novolov, levemir, glucophage Pertinent Labs 11/03- POC 181-316 Nutritional Hx/Data Height 1.8 m Height (Calculated Centimeters) 180.3 Current Weight (lbs) 77.111 kg Weight (Calculated Kilograms) 77.1 Weight (Calculated Grams) 65847.7 [place] Body Weight 172 Body Mass Index (BMI) 23.7 Weight Status Approriate GI Symptoms GI Symptoms None Last BM 11/03 Difficult in: None Skin Integrity/Comment: pressure ulcer, decubitus Current %PO Fair (50-74%) Estimated Nutritional Goals BEE in Kcals: Using Current wt Calories/Kcals/Kg 25-30 Kcals Calculated 0257-8755 Protein: Using Current wt Protein g/k-1.2 Protein Calculated 77-92 Fluid: ml 1925-2310ml (1ml/kcal) Nutritional Problem 1. Problem Problem altered nutrition related lab values Etiology hx of DM Signs/Symptoms: glucose 169, POC 181-316 Malnutrition Alert Protein-Calorie Malnutrition N/A Is there a minimum of two criteria No selected? Query Text:Check all the applicable criteria. A minimum of two criteria are recommended for diagnosis of either severe or non-severe malnutrition. Intervention/Recommendation Comments 1. Continue with current diet as ordered. 2. Monitor PO intake, wt, labs and skin integrity 3. F/U as moderate risk in 3-5 days, 11/08-11/10 Expected Outcomes/Goals Expected Outcomes/Goals 1. PO intake to meet at least 75% of nutritional needs. 2. Wt stability, skin to remain intact, labs to approach WNL.
[2017-11-07] MEDS: Insulin Detemir 100 units/mL 10mL Vial SUBQ SCH (08:41)
[2017-11-07] MEDS: OLANZapine 5 mg Oral Disintegrating Tab PO SCH ×2 (09:34→18:18)
[2017-11-07] MEDS: Venelex 60gm Tube TP SCH (09:36)
--- NOTE | 2017-11-07 14:46 | General Progress Note ---
Subjective - Review of Systems Service Date: 11/07/17 Subjective: lying in bed, periods of agitation Objective - Results Result Diagrams: 11/01/17 06:48 Recent Labs: Laboratory Last Values PT 9.5 SECONDS (9.5-11.5) 11/05/17 21:35 INR 0.91 (0.5-1.4) 11/05/17 21:35 Sodium 136 mEq/L (136-145) 11/01/17 06:48 Potassium 4.2 mEq/L (3.5-5.1) 11/01/17 06:48 Chloride 105 mEq/L (98-107) 11/01/17 06:48 Carbon Dioxide 28.6 mEq/L (21.0-31.0) 11/01/17 06:48 Anion Gap 6.6 (7.0-16.0) L 11/01/17 06:48 BUN 9 mg/dL (7-25) 11/01/17 06:48 Creatinine 0.9 mg/dL (0.7-1.3) 11/01/17 06:48 Est GFR ( Amer) TNP 11/01/17 06:48 Est GFR (Non-Af Amer) TNP 11/01/17 06:48 BUN/Creatinine Ratio 10.0 11/01/17 06:48 Glucose 169 mg/dL (70-105) H 11/01/17 06:48 POC Glucose 224 MG/DL (70 - 105) H 11/07/17 06:09 Calcium 8.8 mg/dL (8.6-10.3) 11/01/17 06:48 - Physical Exam Vitals and I&O: Vital Signs Temp 98.8 F 11/07/17 04:00 Pulse 85 11/07/17 09:31 Resp 16 11/07/17 04:00 BP 140/60 11/07/17 09:31 Pulse Ox 97 11/05/17 04:00 Intake & Output 11/06/17 11/07/17 11/07/17 18:59 06:59 18:59 Intake Total 120 500 Output Total 350 Balance 120 150 Weight (lbs) 76.657 kg 77.111 kg 77.111 kg Intake: Oral 120 500 Output: Urine 350 Other: # Bowel Movements 3 Active Medications: Current Medications Acetaminophen (Tylenol) 650 mg PO Q6H PRN PRN Reason: mild to moderate pain Stop: 12/30/17 23:24 Acetaminophen/Hydrocodone Bitart ([place] 5mg/325mg) 1 tab PO Q6H PRN PRN Reason: Pain (Moderate) Stop: 12/30/17 23:24 Allopurinol (Zyloprim) 100 mg PO DAILY [facility] Stop: 12/30/17 23:24 Last Admin: 11/07/17 09:34 Dose: 100 mg [place] Oil/[place] Balsam/Trypsin (Venelex) 1 appl TP DAILY [facility] Stop: 12/30/17 23:24 Last Admin: 11/07/17 09:36 Dose: 1 appl Clonazepam (Klonopin) 1 mg PO BID [facility] PRN Reason: Protocol Stop: 12/31/17 09:59 Last Admin: 11/07/17 09:34 Dose: 1 mg Donepezil HCl (Aricept) 5 mg PO DAILY [facility] Stop: 01/04/18 08:59 Last Admin: 11/07/17 09:33 Dose: 5 mg Famotidine (Pepcid) 20 mg PO BID [facility] Stop: 12/30/17 23:24 Last Admin: 11/07/17 09:40 Dose: 20 mg Fluconazole (Diflucan) 100 mg PO DAILY [facility] Stop: 12/30/17 23:24 Last Admin: 11/07/17 09:31 Dose: 100 mg Heparin Sodium (Porcine) (Heparin) 5,000 units SUBQ Q12HR [facility] PRN Reason: Protocol Stop: 12/30/17 23:24 Last Admin: 11/07/17 09:37 Dose: Not Given Insulin Aspart (Novolog Insulin Sliding Scale) 0 units SUBQ ACHS [facility] PRN Reason: Protocol Stop: 12/30/17 23:24 Last Admin: 11/06/17 21:45 Dose: 6 units Insulin Aspart (Novolog Insulin Sliding Scale) 0 units SUBQ ACHS [facility] PRN Reason: Protocol Stop: 12/31/17 07:29 Last Admin: 11/06/17 13:11 Dose: 6 units Insulin Detemir (Levemir Insulin) 18 units SUBQ DAILY [facility] PRN Reason: Protocol Stop: 12/30/17 23:24 Last Admin: 11/07/17 08:41 Dose: Not Given Magnesium Hydroxide (Milk Of Magnesia) 30 ml PO HS PRN PRN Reason: Constipation Stop: 12/30/17 23:24 Metformin HCl (Glucophage) 1,000 mg PO DAILY [facility] Stop: 12/31/17 09:59 Last Admin: 11/07/17 09:35 Dose: 1,000 mg Metoprolol Succinate (Toprol Xl) 25 mg PO DAILY [facility] Stop: 12/30/17 23:24 Last Admin: 11/07/17 09:31 Dose: 25 mg Miscellaneous (Vte Chemical Prophylaxis Screen/ Admission) 1 ea [facility] PRN PRN PRN Reason: PROTOCOL Stop: 12/31/17 10:29 Olanzapine (Zyprexa Zydis) 10 mg PO BID [facility] PRN Reason: Protocol Stop: 01/05/18 07:53 Last Admin: 11/07/17 09:34 Dose: 10 mg Zolpidem Tartrate (Ambien) 5 mg PO HS PRN PRN Reason: insomnia Stop: 12/30/17 23:24 Last Admin: 11/03/17 19:55 Dose: 5 mg General: Alert, No acute distress HEENT: Atraumatic, PERRLA, EOMI Neck: Supple, JVD Cardiovascular: Regular rate, Normal S1, Normal S2 Lungs: Clear to auscultation Abdomen: Bowel sounds, Soft Extremities: no Clubbing, no Cyanosis, no Edema Neurological: Sensation intact Skin: no Rash Psych/Mental Status: Other (psychosis) - Procedures Procedures: Procedures Procedure Code Date JEWEL MUSC/FASCIA 20 SQ CM/< 61986 10/12/17 EXCISION OF RIGHT HIP MUSCLE, OPEN APPROACH [id number] 10/12/17 INTRODUCTION OF SERUM/TOX/VACCINE INTO MUSCLE, PERC APPROACH [id number] 10/12/17 Assessment/Plan - Assessment Assessment: S/P KEN S/P electrolyte imbalance Acute decomp of Psychosis Type 2 DM Hx UTI - Plan Plan: Lab - Result Diagrams 11/01/17 06:48 Current Medications Acetaminophen (Tylenol) 650 mg PO Q6H PRN PRN Reason: mild to moderate pain Stop: 12/30/17 23:24 Acetaminophen/Hydrocodone Bitart ([place] 5mg/325mg) 1 tab PO Q6H PRN PRN Reason: Pain (Moderate) Stop: 12/30/17 23:24 Allopurinol (Zyloprim) 100 mg PO DAILY [facility] Stop: 12/30/17 23:24 Last Admin: 11/01/17 10:54 Dose: 100 mg [place] Oil/[place] Balsam/Trypsin (Venelex) 1 appl TP DAILY [facility] Stop: 12/30/17 23:24 Last Admin: 11/01/17 11:02 Dose: 1 appl Clonazepam (Klonopin) 1 mg PO BID [facility] PRN Reason: Protocol Stop: 12/31/17 09:59 Famotidine (Pepcid) 20 mg PO BID [facility] Stop: 12/30/17 23:24 Last Admin: 11/01/17 10:54 Dose: 20 mg Fluconazole (Diflucan) 100 mg PO DAILY [facility] Stop: 12/30/17 23:24 Last Admin: 11/01/17 11:02 Dose: 100 mg Heparin Sodium (Porcine) (Heparin) 5,000 units SUBQ Q12HR [facility] PRN Reason: Protocol Stop: 12/30/17 23:24 Last Admin: 11/01/17 10:59 Dose: 5,000 units Levofloxacin (Levaquin Pb) 500 mg in 100 mls @ 100 mls/hr IV Q24H [facility] Stop: 12/31/17 11:59 Insulin Aspart (Novolog Insulin Sliding Scale) 0 units SUBQ ACHS [facility] PRN Reason: Protocol Stop: 12/30/17 23:24 Last Admin: 11/01/17 10:45 Dose: 2 units Insulin Aspart (Novolog Insulin Sliding Scale) 0 units SUBQ ACHS [facility] PRN Reason: Protocol Stop: 12/31/17 07:29 Insulin Detemir (Levemir Insulin) 18 units SUBQ DAILY [facility] PRN Reason: Protocol Stop: 12/30/17 23:24 Last Admin: 11/01/17 10:56 Dose: 18 units Lorazepam (Ativan) 0.5 mg PO Q6HR PRN; Protocol PRN Reason: agitation Stop: 12/30/17 23:24 Magnesium Hydroxide (Milk Of Magnesia) 30 ml PO HS PRN PRN Reason: Constipation Stop: 12/30/17 23:24 Metformin HCl (Glucophage) 1,000 mg PO DAILY [facility] Stop: 12/31/17 09:59 Metoprolol Succinate (Toprol Xl) 25 mg PO DAILY [facility] Stop: 12/30/17 23:24 Last Admin: 11/01/17 10:55 Dose: 25 mg Miscellaneous (Vte Chemical Prophylaxis Screen/ Admission) 1 ea [facility] PRN PRN PRN Reason: PROTOCOL Stop: 12/31/17 10:29 Olanzapine (Zyprexa Zydis) 5 mg PO DAILY [facility] PRN Reason: Protocol Stop: 12/31/17 09:59 Zolpidem Tartrate (Ambien) 5 mg PO HS PRN PRN Reason: insomnia Stop: 12/30/17 23:24 Lab - Result Diagrams 11/01/17 06:48 kidney fnc remain stable encourage po intake psych meds Nutritional Asmnt/Malnutr-PDOC - Dietary Evaluation Malnutrition Findings (Please click <Entered> for more info): Nutritional Asmnt/Malnutrition Start: 11/05/17 16: 25 Text: Status: Complete Freq: Document 11/05/17 16:25 GREY (Rec: 11/05/17 16:31 GREY [email or web address]) Nutritional Asmnt/Malnutrition Patient General Information Nutritional Screening Moderate Risk Diagnosis dehydration Pertinent Medical Hx/Surgical Hx DM, dementia, depression, psychosis, schizophrenia, chronic renal insuff Subjective Information Pt is agitated, on 1:1 sitter. Per EMR, PO intake 25-75%, avg 50%. Current Diet Order/ Nutrition Support pureed, CCHO 60gm Pertinent Medications novolov, levemir, glucophage Pertinent Labs 11/03- POC 181-316 Nutritional Hx/Data Height 1.8 m Height (Calculated Centimeters) 180.3 Current Weight (lbs) 77.111 kg Weight (Calculated Kilograms) 77.1 Weight (Calculated Grams) 30253.7 [place] Body Weight 172 Body Mass Index (BMI) 23.7 Weight Status Approriate GI Symptoms GI Symptoms None Last BM 11/03 Difficult in: None Skin Integrity/Comment: pressure ulcer, decubitus Current %PO Fair (50-74%) Estimated Nutritional Goals BEE in Kcals: Using Current wt Calories/Kcals/Kg 25-30 Kcals Calculated 8428-0193 Protein: Using Current wt Protein g/k-1.2 Protein Calculated 77-92 Fluid: ml 1925-2310ml (1ml/kcal) Nutritional Problem 1. Problem Problem altered nutrition related lab values Etiology hx of DM Signs/Symptoms: glucose 169, POC 181-316 Malnutrition Alert Protein-Calorie Malnutrition N/A Is there a minimum of two criteria No selected? Query Text:Check all the applicable criteria. A minimum of two criteria are recommended for diagnosis of either severe or non-severe malnutrition. Intervention/Recommendation Comments 1. Continue with current diet as ordered. 2. Monitor PO intake, wt, labs and skin integrity 3. F/U as moderate risk in 3-5 days, 11/08-11/10 Expected Outcomes/Goals Expected Outcomes/Goals 1. PO intake to meet at least 75% of nutritional needs. 2. Wt stability, skin to remain intact, labs to approach WNL.
[2017-11-07] MEDS: INSULIN ASPART SLIDING SCALE 100 UNITS/ML UNIT SUBQ SCH ×2 (18:20→21:35)
--- NOTE | 2017-11-08 05:06 | General Progress Note ---
Subjective - Review of Systems Service Date: 11/08/17 Subjective: Patient resting comfortably in bed. no acute distress. restraints discontinued since yesterday. Elevated blood sugar noted. Objective - Results Result Diagrams: 11/01/17 06:48 Recent Labs: Laboratory Last Values PT 9.5 SECONDS (9.5-11.5) 11/05/17 21:35 INR 0.91 (0.5-1.4) 11/05/17 21:35 Sodium 136 mEq/L (136-145) 11/01/17 06:48 Potassium 4.2 mEq/L (3.5-5.1) 11/01/17 06:48 Chloride 105 mEq/L (98-107) 11/01/17 06:48 Carbon Dioxide 28.6 mEq/L (21.0-31.0) 11/01/17 06:48 Anion Gap 6.6 (7.0-16.0) L 11/01/17 06:48 BUN 9 mg/dL (7-25) 11/01/17 06:48 Creatinine 0.9 mg/dL (0.7-1.3) 11/01/17 06:48 Est GFR ( Amer) TNP 11/01/17 06:48 Est GFR (Non-Af Amer) TNP 11/01/17 06:48 BUN/Creatinine Ratio 10.0 11/01/17 06:48 Glucose 169 mg/dL (70-105) H 11/01/17 06:48 POC Glucose 291 MG/DL (70 - 105) H 11/07/17 20:38 Calcium 8.8 mg/dL (8.6-10.3) 11/01/17 06:48 - Physical Exam Vitals and I&O: Vital Signs Temp 98.5 F 11/07/17 20:00 Pulse 82 11/07/17 20:00 Resp 18 11/07/17 20:00 BP 136/70 11/07/17 20:00 Pulse Ox 98 11/07/17 20:00 Intake & Output 11/07/17 11/07/17 11/08/17 06:59 18:59 06:59 Intake Total 500 300 Output Total 350 Balance 150 300 Weight (lbs) 77.111 kg 77.111 kg 77.111 kg Intake: Oral 500 300 Output: Urine 350 Other: # Bowel Movements 3 Weight Source Bedscale Estimated Bedscale Active Medications: Current Medications Acetaminophen (Tylenol) 650 mg PO Q6H PRN PRN Reason: mild to moderate pain Stop: 12/30/17 23:24 Acetaminophen/Hydrocodone Bitart ([place] 5mg/325mg) 1 tab PO Q6H PRN PRN Reason: Pain (Moderate) Stop: 12/30/17 23:24 Allopurinol (Zyloprim) 100 mg PO DAILY [facility] [place] Stop: 12/30/17 23:24 Last Admin: 11/07/17 09:34 Dose: 100 mg [place] Oil/[place] Balsam/Trypsin (Venelex) 1 appl TP DAILY [facility] Stop: 12/30/17 23:24 Last Admin: 11/07/17 09:36 Dose: 1 appl Clonazepam (Klonopin) 1 mg PO BID [facility] PRN Reason: Protocol Stop: 12/31/17 09:59 Last Admin: 11/07/17 18:18 Dose: Not Given Donepezil HCl (Aricept) 5 mg PO DAILY [facility] [place] Stop: 01/04/18 08:59 Last Admin: 11/07/17 09:33 Dose: 5 mg Famotidine (Pepcid) 20 mg PO BID [facility] [place] Stop: 12/30/17 23:24 Last Admin: 11/07/17 18:18 Dose: Not Given Fluconazole (Diflucan) 100 mg PO DAILY [facility] [place] Stop: 12/30/17 23:24 Last Admin: 11/07/17 09:31 Dose: 100 mg Heparin Sodium (Porcine) (Heparin) 5,000 units SUBQ Q12HR [facility] PRN Reason: Protocol Stop: 12/30/17 23:24 Last Admin: 11/07/17 21:34 Dose: 5,000 units Insulin Aspart (Novolog Insulin Sliding Scale) 0 units SUBQ ACHS [facility] PRN Reason: Protocol Stop: 12/30/17 23:24 Last Admin: 11/07/17 21:35 Dose: 6 units Insulin Aspart (Novolog Insulin Sliding Scale) 0 units SUBQ ACHS [facility] PRN Reason: Protocol Stop: 12/31/17 07:29 Last Admin: 11/06/17 13:11 Dose: 6 units Insulin Detemir (Levemir Insulin) 18 units SUBQ DAILY [facility] PRN Reason: Protocol Stop: 12/30/17 23:24 Last Admin: 11/07/17 08:41 Dose: Not Given Magnesium Hydroxide (Milk Of Magnesia) 30 ml PO HS PRN PRN Reason: Constipation Stop: 12/30/17 23:24 Metformin HCl (Glucophage) 1,000 mg PO DAILY [facility] [place] Stop: 12/31/17 09:59 Last Admin: 11/07/17 09:35 Dose: 1,000 mg Metoprolol Succinate (Toprol Xl) 25 mg PO DAILY [facility] Stop: 12/30/17 23:24 Last Admin: 11/07/17 09:31 Dose: 25 mg Miscellaneous (Vte Chemical Prophylaxis Screen/ Admission) 1 ea [facility] PRN PRN PRN Reason: PROTOCOL Stop: 12/31/17 10:29 Olanzapine (Zyprexa Zydis) 10 mg PO BID [facility] PRN Reason: Protocol Stop: 01/05/18 07:53 Last Admin: 11/07/17 18:18 Dose: Not Given Zolpidem Tartrate (Ambien) 5 mg PO HS PRN PRN Reason: insomnia Stop: 12/30/17 23:24 Last Admin: 11/03/17 19:55 Dose: 5 mg General: Alert, No acute distress HEENT: Atraumatic, PERRLA, EOMI Neck: Supple, JVD Cardiovascular: Regular rate, Normal S1, Normal S2 Lungs: Clear to auscultation Abdomen: Bowel sounds, Soft Extremities: no Clubbing, no Cyanosis, no Edema Neurological: Sensation intact Skin: no Rash Psych/Mental Status: Other (psychosis) - Procedures Procedures: Procedures Procedure Code Date JEWEL MUSC/FASCIA 20 SQ CM/< 23653 10/12/17 EXCISION OF RIGHT HIP MUSCLE, OPEN APPROACH [id number] 10/12/17 INTRODUCTION OF SERUM/TOX/VACCINE INTO MUSCLE, PERC APPROACH [id number] 10/12/17 Assessment/Plan - Assessment Assessment: psychosis dementia Alzheimer's dementia diabetes mellitus not controlled. s/p wound debridement of sacral decubiti UTI hyperglycemia - Plan Plan: continue current medications. discharge planning. Nutritional Asmnt/Malnutr-PDOC - Dietary Evaluation Malnutrition Findings (Please click <Entered> for more info): Nutritional Asmnt/Malnutrition Start: 11/05/17 16: 25 Text: Status: Complete Freq: Document 11/05/17 16:25 LCHENG (Rec: 11/05/17 16:31 LCHENG [email or web address]) Nutritional Asmnt/Malnutrition Patient General Information Nutritional Screening Moderate Risk Diagnosis dehydration Pertinent Medical Hx/Surgical Hx DM, dementia, depression, psychosis, schizophrenia, chronic renal insuff Subjective Information Pt is agitated, on 1:1 sitter. Per EMR, PO intake 25-75%, avg 50%. Current Diet Order/ Nutrition Support pureed, CCHO 60gm Pertinent Medications novolov, levemir, glucophage Pertinent Labs 11/03- POC 181-316 Nutritional Hx/Data Height 1.8 m Height (Calculated Centimeters) 180.3 Current Weight (lbs) 77.111 kg Weight (Calculated Kilograms) 77.1 Weight (Calculated Grams) 26570.7 [place] Body Weight 172 Body Mass Index (BMI) 23.7 Weight Status Approriate GI Symptoms GI Symptoms None Last BM 11/03 Difficult in: None Skin Integrity/Comment: pressure ulcer, decubitus Current %PO Fair (50-74%) Estimated Nutritional Goals BEE in Kcals: Using Current wt Calories/Kcals/Kg 25-30 Kcals Calculated 3999-4697 Protein: Using Current wt Protein g/k-1.2 Protein Calculated 77-92 Fluid: ml 1925-2310ml (1ml/kcal) Nutritional Problem 1. Problem Problem altered nutrition related lab values Etiology hx of DM Signs/Symptoms: glucose 169, POC 181-316 Malnutrition Alert Protein-Calorie Malnutrition N/A Is there a minimum of two criteria No selected? Query Text:Check all the applicable criteria. A minimum of two criteria are recommended for diagnosis of either severe or non-severe malnutrition. Intervention/Recommendation Comments 1. Continue with current diet as ordered. 2. Monitor PO intake, wt, labs and skin integrity 3. F/U as moderate risk in 3-5 days, 11/08-11/10 Expected Outcomes/Goals Expected Outcomes/Goals 1. PO intake to meet at least 75% of nutritional needs. 2. Wt stability, skin to remain intact, labs to approach WNL.
[2017-11-08] MEDS: INSULIN ASPART SLIDING SCALE 100 UNITS/ML UNIT SUBQ SCH ×6 (07:02→20:25)
[2017-11-08] MEDS: Insulin Detemir 100 units/mL 10mL Vial SUBQ SCH (09:00)
[2017-11-08] MEDS: Venelex 60gm Tube TP SCH (10:54)
[2017-11-08] MEDS: OLANZapine 5 mg Oral Disintegrating Tab PO SCH ×2 (11:01→17:22)
--- NOTE | 2017-11-08 16:11 | General Progress Note ---
Subjective - Review of Systems Service Date: 11/08/17 Subjective: lying in bed, periods of agitation Objective - Results Result Diagrams: 11/01/17 06:48 Recent Labs: Laboratory Last Values PT 9.5 SECONDS (9.5-11.5) 11/05/17 21:35 INR 0.91 (0.5-1.4) 11/05/17 21:35 Sodium 136 mEq/L (136-145) 11/01/17 06:48 Potassium 4.2 mEq/L (3.5-5.1) 11/01/17 06:48 Chloride 105 mEq/L (98-107) 11/01/17 06:48 Carbon Dioxide 28.6 mEq/L (21.0-31.0) 11/01/17 06:48 Anion Gap 6.6 (7.0-16.0) L 11/01/17 06:48 BUN 9 mg/dL (7-25) 11/01/17 06:48 Creatinine 0.9 mg/dL (0.7-1.3) 11/01/17 06:48 Est GFR ( Amer) TNP 11/01/17 06:48 Est GFR (Non-Af Amer) TNP 11/01/17 06:48 BUN/Creatinine Ratio 10.0 11/01/17 06:48 Glucose 169 mg/dL (70-105) H 11/01/17 06:48 POC Glucose 235 MG/DL (70 - 105) H 11/08/17 13:37 Calcium 8.8 mg/dL (8.6-10.3) 11/01/17 06:48 - Physical Exam Vitals and I&O: Vital Signs Temp 98.2 F 11/08/17 04:00 Pulse 87 11/08/17 10:54 Resp 18 11/08/17 04:00 BP 125/70 11/08/17 10:54 Pulse Ox 99 11/08/17 04:00 Intake & Output 11/07/17 11/08/17 11/08/17 18:59 06:59 18:59 Intake Total 300 Balance 300 Weight (lbs) 77.111 kg 77.111 kg 77.111 kg Intake: Oral 300 Other: Weight Source Estimated Bedscale Bedscale Active Medications: Current Medications Acetaminophen (Tylenol) 650 mg PO Q6H PRN PRN Reason: mild to moderate pain Stop: 12/30/17 23:24 Acetaminophen/Hydrocodone Bitart ([place] 5mg/325mg) 1 tab PO Q6H PRN PRN Reason: Pain (Moderate) Stop: 12/30/17 23:24 Allopurinol (Zyloprim) 100 mg PO DAILY [facility] Stop: 12/30/17 23:24 Last Admin: 11/08/17 10:49 Dose: 100 mg [place] Oil/[place] Balsam/Trypsin (Venelex) 1 appl TP DAILY [facility] Stop: 12/30/17 23:24 Last Admin: 11/08/17 10:54 Dose: 1 appl Clonazepam (Klonopin) 1 mg PO BID [facility] PRN Reason: Protocol Stop: 12/31/17 09:59 Last Admin: 11/08/17 10:48 Dose: 1 mg Donepezil HCl (Aricept) 5 mg PO DAILY [facility] Stop: 01/04/18 08:59 Last Admin: 11/08/17 10:54 Dose: 5 mg Famotidine (Pepcid) 20 mg PO BID [facility] Stop: 12/30/17 23:24 Last Admin: 11/07/17 18:18 Dose: Not Given Fluconazole (Diflucan) 100 mg PO DAILY [facility] Stop: 12/30/17 23:24 Last Admin: 11/08/17 10:49 Dose: 100 mg Heparin Sodium (Porcine) (Heparin) 5,000 units SUBQ Q12HR [facility] PRN Reason: Protocol Stop: 12/30/17 23:24 Last Admin: 11/08/17 10:52 Dose: 5,000 units Insulin Aspart (Novolog Insulin Sliding Scale) 0 units SUBQ ACHS [facility] PRN Reason: Protocol Stop: 12/30/17 23:24 Last Admin: 11/08/17 14:19 Dose: 6 units Insulin Aspart (Novolog Insulin Sliding Scale) 0 units SUBQ ACHS [facility] PRN Reason: Protocol Stop: 12/31/17 07:29 Last Admin: 11/06/17 13:11 Dose: 6 units Insulin Detemir (Levemir Insulin) 18 units SUBQ DAILY [facility] PRN Reason: Protocol Stop: 12/30/17 23:24 Last Admin: 11/07/17 08:41 Dose: Not Given Magnesium Hydroxide (Milk Of Magnesia) 30 ml PO PRN PRN Reason: Constipation Stop: 12/30/17 23:24 Metformin HCl (Glucophage) 1,000 mg PO DAILY [facility] Stop: 12/31/17 09:59 Last Admin: 11/08/17 10:48 Dose: 1,000 mg Metoprolol Succinate (Toprol Xl) 25 mg PO DAILY [facility] Stop: 12/30/17 23:24 Last Admin: 11/08/17 10:54 Dose: 25 mg Miscellaneous (Vte Chemical Prophylaxis Screen/ Admission) 1 ea [facility] PRN PRN PRN Reason: PROTOCOL Stop: 12/31/17 10:29 Olanzapine (Zyprexa Zydis) 10 mg PO BID [facility] PRN Reason: Protocol Stop: 01/05/18 07:53 Last Admin: 11/08/17 11:01 Dose: 10 mg Zolpidem Tartrate (Ambien) 5 mg PO HS PRN PRN Reason: insomnia Stop: 12/30/17 23:24 Last Admin: 11/03/17 19:55 Dose: 5 mg General: Alert, No acute distress HEENT: Atraumatic, PERRLA, EOMI Neck: Supple, JVD, +2 carotid pulse wo bruit Cardiovascular: Regular rate, Normal S1, Normal S2 Lungs: Clear to auscultation Abdomen: Bowel sounds, Soft Extremities: no Clubbing, no Cyanosis, no Edema Neurological: Sensation intact Skin: no Rash Psych/Mental Status: Other (psychosis) - Procedures Procedures: Procedures Procedure Code Date JEWEL MUSC/FASCIA 20 SQ CM/< 73500 10/12/17 EXCISION OF RIGHT HIP MUSCLE, OPEN APPROACH [id number] 10/12/17 INTRODUCTION OF SERUM/TOX/VACCINE INTO MUSCLE, PERC APPROACH [id number] 10/12/17 Assessment/Plan - Assessment Assessment: S/P KEN S/P electrolyte imbalance Acute decomp of Psychosis Type 2 DM MRSA, Yeast UTI - Plan Plan: Lab - Result Diagrams 11/01/17 06:48 Current Medications Acetaminophen (Tylenol) 650 mg PO Q6H PRN PRN Reason: mild to moderate pain Stop: 12/30/17 23:24 Acetaminophen/Hydrocodone Bitart ([place] 5mg/325mg) 1 tab PO Q6H PRN PRN Reason: Pain (Moderate) Stop: 12/30/17 23:24 Allopurinol (Zyloprim) 100 mg PO DAILY [facility] Stop: 12/30/17 23:24 Last Admin: 03/17/18 10:54 Dose: 100 mg [place] Oil/[place]uan[place] Balsam/Trypsin (Venelex) 1 appl TP DAILY [facility] Stop: 12/30/17 23:24 Last Admin: 11/01/17 11:02 Dose: 1 appl Clonazepam (Klonopin) 1 mg PO BID [facility] PRN Reason: Protocol Stop: 12/31/17 09:59 Famotidine (Pepcid) 20 mg PO BID [facility] Stop: 12/30/17 23:24 Last Admin: 11/01/17 10:54 Dose: 20 mg Fluconazole (Diflucan) 100 mg PO DAILY [facility] Stop: 12/30/17 23:24 Last Admin: 11/01/17 11:02 Dose: 100 mg Heparin Sodium (Porcine) (Heparin) 5,000 units SUBQ Q12HR [facility] PRN Reason: Protocol Stop: 12/30/17 23:24 Last Admin: 11/01/17 10:59 Dose: 5,000 units Levofloxacin (Levaquin Pb) 500 mg in 100 mls @ 100 mls/hr IV Q24H [facility] Stop: 12/31/17 11:59 Insulin Aspart (Novolog Insulin Sliding Scale) 0 units SUBQ ACHS [facility] PRN Reason: Protocol Stop: 12/30/17 23:24 Last Admin: 11/01/17 10:45 Dose: 2 units Insulin Aspart (Novolog Insulin Sliding Scale) 0 units SUBQ ACHS I[facility] PRN Reason: Protocol Stop: 12/31/17 07:29 Insulin Detemir (Levemir Insulin) 18 units SUBQ DAILY [facility] PRN Reason: Protocol Stop: 12/30/17 23:24 Last Admin: 11/01/17 10:56 Dose: 18 units Lorazepam (Ativan) 0.5 mg PO Q6HR PRN; Protocol PRN Reason: agitation Stop: 12/30/17 23:24 Magnesium Hydroxide (Milk Of Magnesia) 30 ml PO HS PRN PRN Reason: Constipation Stop: 12/30/17 23:24 Metformin HCl (Glucophage) 1,000 mg PO DAILY [facility] Stop: 12/31/17 09:59 Metoprolol Succinate (Toprol Xl) 25 mg PO DAILY [facility] Stop: 12/30/17 23:24 Last Admin: 11/01/17 10:55 Dose: 25 mg Miscellaneous (Vte Chemical Prophylaxis Screen/ Admission) 1 ea [facility] PRN PRN PRN Reason: PROTOCOL Stop: 12/31/17 10:29 Olanzapine (Zyprexa Zydis) 5 mg PO DAILY [facility] PRN Reason: Protocol Stop: 12/31/17 09:59 Zolpidem Tartrate (Ambien) 5 mg PO HS PRN PRN Reason: insomnia Stop: 12/30/17 23:24 Lab - Result Diagrams 11/01/17 06:48 kidney fnc remain stable encourage po intake psych meds start Vanco W/ Diflucan Nutritional Asmnt/Malnutr-PDOC - Dietary Evaluation Malnutrition Findings (Please click <Entered> for more info): Nutritional Asmnt/Malnutrition Start: 11/05/17 16: 25 Text: Status: Complete Freq: Document 11/05/17 16:25 GREY (Rec: 11/05/17 16:31 GREY [email or web address]) Nutritional Asmnt/Malnutrition Patient General Information Nutritional Screening Moderate Risk Diagnosis dehydration Pertinent Medical Hx/Surgical Hx DM, dementia, depression, psychosis, schizophrenia, chronic renal insuff Subjective Information Pt is agitated, on 1:1 sitter. Per EMR, PO intake 25-75%, avg 50%. Current Diet Order/ Nutrition Support pureed, CCHO 60gm Pertinent Medications novolov, levemir, glucophage Pertinent Labs 11/03- POC 181-316 Nutritional Hx/Data Height 1.8 m Height (Calculated Centimeters) 180.3 Current Weight (lbs) 77.111 kg Weight (Calculated Kilograms) 77.1 Weight (Calculated Grams) 91939.7 [place] Body Weight 172 Body Mass Index (BMI) 23.7 Weight Status Approriate GI Symptoms GI Symptoms None Last BM 11/03 Difficult in: None Skin Integrity/Comment: pressure ulcer, decubitus Current %PO Fair (50-74%) Estimated Nutritional Goals BEE in Kcals: Using Current wt Calories/Kcals/Kg 25-30 Kcals Calculated 5235-7736 Protein: Using Current wt Protein g/k-1.2 Protein Calculated 77-92 Fluid: ml 1925-2310ml (1ml/kcal) Nutritional Problem 1. Problem Problem altered nutrition related lab values Etiology hx of DM Signs/Symptoms: glucose 169, POC 181-316 Malnutrition Alert Protein-Calorie Malnutrition N/A Is there a minimum of two criteria No selected? Query Text:Check all the applicable criteria. A minimum of two criteria are recommended for diagnosis of either severe or non-severe malnutrition. Intervention/Recommendation Comments 1. Continue with current diet as ordered. 2. Monitor PO intake, wt, labs and skin integrity 3. F/U as moderate risk in 3-5 days, 11/08-11/10 Expected Outcomes/Goals Expected Outcomes/Goals 1. PO intake to meet at least 75% of nutritional needs. 2. Wt stability, skin to remain intact, labs to approach WNL.
[2017-11-08] MEDS: Vancomycin HCl 500 MG in Sodium Chloride 0.9% 100 ML IV SCH (22:30)
--- NOTE | 2017-11-08 23:55 | Infectious Disease Prog Note ---
Infectious Disease Subjective - Review of Systems Service Date: 11/08/17 Subjective: No fever Infectious Disease Objective - Results Result Diagrams: 11/01/17 06:48 Recent Labs: Laboratory Last Values PT 9.5 SECONDS (9.5-11.5) 11/05/17 21:35 INR 0.91 (0.5-1.4) 11/05/17 21:35 Sodium 136 mEq/L (136-145) 11/01/17 06:48 Potassium 4.2 mEq/L (3.5-5.1) 11/01/17 06:48 Chloride 105 mEq/L (98-107) 11/01/17 06:48 Carbon Dioxide 28.6 mEq/L (21.0-31.0) 11/01/17 06:48 Anion Gap 6.6 (7.0-16.0) L 11/01/17 06:48 BUN 9 mg/dL (7-25) 11/01/17 06:48 Creatinine 0.9 mg/dL (0.7-1.3) 11/01/17 06:48 Est GFR ( Amer) TNP 11/01/17 06:48 Est GFR (Non-Af Amer) TNP 11/01/17 06:48 BUN/Creatinine Ratio 10.0 11/01/17 06:48 Glucose 169 mg/dL (70-105) H 11/01/17 06:48 POC Glucose 168 MG/DL (70 - 105) H 11/08/17 20:22 Calcium 8.8 mg/dL (8.6-10.3) 11/01/17 06:48 - Physical Exam Vitals and I&O: Vital Signs Temp 97.8 F 11/08/17 20:00 Pulse 83 11/08/17 20:00 Resp 18 11/08/17 20:00 BP 141/90 11/08/17 20:00 Pulse Ox 98 11/08/17 20:00 Intake & Output 11/08/17 11/08/17 11/09/17 06:59 18:59 06:59 Intake Total 300 600 Balance 300 600 Weight (lbs) 77.111 kg 77.111 kg 77.111 kg Intake: Oral 300 600 Other: # Voids 4 Weight Source Bedscale Bedscale Bedscale Active Medications: Current Medications Acetaminophen (Tylenol) 650 mg PO Q6H PRN PRN Reason: mild to moderate pain Stop: 12/30/17 23:24 Acetaminophen/Hydrocodone Bitart ([place] 5mg/325mg) 1 tab PO Q6H PRN PRN Reason: Pain (Moderate) Stop: 12/30/17 23:24 Allopurinol (Zyloprim) 100 mg PO DAILY [facility] Stop: 12/30/17 23:24 Last Admin: 11/08/17 10:49 Dose: 100 mg [place] Oil/[place] Balsam/Trypsin (Venelex) 1 appl TP DAILY [facility] Stop: 12/30/17 23:24 Last Admin: 11/08/17 10:54 Dose: 1 appl Clonazepam (Klonopin) 1 mg PO BID [facility] PRN Reason: Protocol Stop: 12/31/17 09:59 Last Admin: 11/08/17 17:22 Dose: 1 mg Donepezil HCl (Aricept) 5 mg PO DAILY [facility] Stop: 01/04/18 08:59 Last Admin: 11/08/17 10:54 Dose: 5 mg Famotidine (Pepcid) 20 mg PO BID [facility] Stop: 12/30/17 23:24 Last Admin: 11/08/17 17:23 Dose: 20 mg Fluconazole (Diflucan) 100 mg PO DAILY [facility] Stop: 12/30/17 23:24 Last Admin: 11/08/17 10:49 Dose: 100 mg Heparin Sodium (Porcine) (Heparin) 5,000 units SUBQ Q12HR [facility] PRN Reason: Protocol Stop: 12/30/17 23:24 Last Admin: 11/08/17 20:26 Dose: Not Given Vancomycin HCl 500 mg/ Sodium (Chloride) 100 mls @ 100 mls/hr IV Q8HR [facility] Stop: 01/07/18 22:29 Last Admin: 11/08/17 22:30 Dose: Not Given Insulin Aspart (Novolog Insulin Sliding Scale) 0 units SUBQ ACHS [facility] PRN Reason: Protocol Stop: 12/30/17 23:24 Last Admin: 11/08/17 20:25 Dose: Not Given Insulin Aspart (Novolog Insulin Sliding Scale) 0 units SUBQ ACHS [facility] PRN Reason: Protocol Stop: 12/31/17 07:29 Last Admin: 11/08/17 20:25 Dose: Not Given Insulin Detemir (Levemir Insulin) 18 units SUBQ DAILY [facility] PRN Reason: Protocol Stop: 12/30/17 23:24 Last Admin: 11/08/17 09:00 Dose: Not Given Magnesium Hydroxide (Milk Of Magnesia) 30 ml PO HS PRN PRN Reason: Constipation Stop: 12/30/17 23:24 Metformin HCl (Glucophage) 1,000 mg PO DAILY [facility] Stop: 12/31/17 09:59 Last Admin: 11/08/17 10:48 Dose: 1,000 mg Metoprolol Succinate (Toprol Xl) 25 mg PO DAILY [facility] Stop: 12/30/17 23:24 Last Admin: 11/08/17 10:54 Dose: 25 mg Miscellaneous (Vte Chemical Prophylaxis Screen/ Admission) 1 ea PRN PRN PRN Reason: PROTOCOL Stop: 12/31/17 10:29 Miscellaneous (Vancomycin Iv Per Pharmacy) 1 ea PRN PRN PRN Reason: PROTOCOL Stop: 01/07/18 16:10 Olanzapine (Zyprexa Zydis) 10 mg PO BID [facility] PRN Reason: Protocol Stop: 01/05/18 07:53 Last Admin: 11/08/17 17:22 Dose: 10 mg Zolpidem Tartrate (Ambien) 5 mg PO HS PRN PRN Reason: insomnia Stop: 12/30/17 23:24 Last Admin: 11/03/17 19:55 Dose: 5 mg General: no acute distress, well developed, well nourished HEENT: atraumatic, normocephalic, PERRLA Neck: supple, no thyromegaly Cardiovascular: S1S2, regular Lungs: clear to auscultation bilaterally, clear to percussion Abdomen: soft, no tender, no distended, no mass Extremities: no cyanosis, no clubbing Neurological: awake, alert, oriented Skin: other (sacral wound.) - Procedures Procedures: Procedures Procedure Code Date JEWEL MUSC/FASCIA 20 SQ CM/< 84461 10/12/17 EXCISION OF RIGHT HIP MUSCLE, OPEN APPROACH [id number] 10/12/17 INTRODUCTION OF SERUM/TOX/VACCINE INTO MUSCLE, PERC APPROACH [id number] 10/12/17 Infectious Disease Assmt/Plan - Assessment Assessment: 1. Sacral decubitus ulcer. 2. UTI. Treated 3. Dementia. - Plan Plan: wound care. Nutritional Asmnt/Malnutr-PDOC - Dietary Evaluation Malnutrition Findings (Please click <Entered> for more info): Nutritional Asmnt/Malnutrition Start: 11/05/17 16: 25 Text: Status: Complete Freq: Document 11/05/17 16:25 KEVINHEATHER (Rec: 11/05/17 16:31 KEVINHEATHER [email or web address]) Nutritional Asmnt/Malnutrition Patient General Information Nutritional Screening Moderate Risk Diagnosis dehydration Pertinent Medical Hx/Surgical Hx DM, dementia, depression, psychosis, schizophrenia, chronic renal insuff Subjective Information Pt is agitated, on 1:1 sitter. Per EMR, PO intake 25-75%, avg 50%. Current Diet Order/ Nutrition Support pureed, CCHO 60gm Pertinent Medications novolov, levemir, glucophage Pertinent Labs 11/03- POC 181-316 Nutritional Hx/Data Height 1.8 m Height (Calculated Centimeters) 180.3 Current Weight (lbs) 77.111 kg Weight (Calculated Kilograms) 77.1 Weight (Calculated Grams) 58944.7 [place] Body Weight 172 Body Mass Index (BMI) 23.7 Weight Status Approriate GI Symptoms GI Symptoms None Last BM 11/03 Difficult in: None Skin Integrity/Comment: pressure ulcer, decubitus Current %PO Fair (50-74%) Estimated Nutritional Goals BEE in Kcals: Using Current wt Calories/Kcals/Kg 25-30 Kcals Calculated 2210-0897 Protein: Using Current wt Protein g/k-1.2 Protein Calculated 77-92 Fluid: ml 1925-2310ml (1ml/kcal) Nutritional Problem 1. Problem Problem altered nutrition related lab values Etiology hx of DM Signs/Symptoms: glucose 169, POC 181-316 Malnutrition Alert Protein-Calorie Malnutrition N/A Is there a minimum of two criteria No selected? Query Text:Check all the applicable criteria. A minimum of two criteria are recommended for diagnosis of either severe or non-severe malnutrition. Intervention/Recommendation Comments 1. Continue with current diet as ordered. 2. Monitor PO intake, wt, labs and skin integrity 3. F/U as moderate risk in 3-5 days, 11/08-11/10 Expected Outcomes/Goals Expected Outcomes/Goals 1. PO intake to meet at least 75% of nutritional needs. 2. Wt stability, skin to remain intact, labs to approach WNL.
[2017-11-09] MEDS: Vancomycin HCl 500 MG in Sodium Chloride 0.9% 100 ML IV SCH (05:03)
--- NOTE | 2017-11-09 05:29 | General Progress Note ---
Subjective - Review of Systems Service Date: 11/09/17 Subjective: Patient resting comfortably in bed. no acute distress. restraints discontinued since yesterday. Elevated blood sugar noted. Objective - Results Result Diagrams: 11/01/17 06:48 Recent Labs: Laboratory Last Values PT 9.5 SECONDS (9.5-11.5) 11/05/17 21:35 INR 0.91 (0.5-1.4) 11/05/17 21:35 Sodium 136 mEq/L (136-145) 11/01/17 06:48 Potassium 4.2 mEq/L (3.5-5.1) 11/01/17 06:48 Chloride 105 mEq/L (98-107) 11/01/17 06:48 Carbon Dioxide 28.6 mEq/L (21.0-31.0) 11/01/17 06:48 Anion Gap 6.6 (7.0-16.0) L 11/01/17 06:48 BUN 9 mg/dL (7-25) 11/01/17 06:48 Creatinine 0.9 mg/dL (0.7-1.3) 11/01/17 06:48 Est GFR ( Amer) TNP 11/01/17 06:48 Est GFR (Non-Af Amer) TNP 11/01/17 06:48 BUN/Creatinine Ratio 10.0 11/01/17 06:48 Glucose 169 mg/dL (70-105) H 11/01/17 06:48 POC Glucose 220 MG/DL (70 - 105) H 11/09/17 05:22 Calcium 8.8 mg/dL (8.6-10.3) 11/01/17 06:48 - Physical Exam Vitals and I&O: Vital Signs Temp 98.0 F 11/09/17 04:00 Pulse 96 11/09/17 04:00 Resp 18 11/09/17 04:00 BP 136/68 11/09/17 04:00 Pulse Ox 96 11/09/17 04:00 Intake & Output 11/08/17 11/08/17 11/09/17 06:59 18:59 06:59 Intake Total 300 840 Output Total 600 Balance 300 240 Weight (lbs) 77.111 kg 77.111 kg 77.111 kg Intake: Oral 300 840 Output: Urine 600 Other: # Voids 4 Weight Source Bedscale Bedscale Bedscale Active Medications: Current Medications Acetaminophen (Tylenol) 650 mg PO Q6H PRN PRN Reason: mild to moderate pain Stop: 12/30/17 23:24 Acetaminophen/Hydrocodone Bitart ([place] 5mg/325mg) 1 tab PO Q6H PRN PRN Reason: Pain (Moderate) Stop: 12/30/17 23:24 Allopurinol (Zyloprim) 100 mg PO DAILY [facility] Stop: 12/30/17 23:24 Last Admin: 11/08/17 10:49 Dose: 100 mg [place] Oil/[place] Balsam/Trypsin (Venelex) 1 appl TP DAILY [facility] Stop: 12/30/17 23:24 Last Admin: 11/08/17 10:54 Dose: 1 appl Clonazepam (Klonopin) 1 mg PO BID [facility] PRN Reason: Protocol Stop: 12/31/17 09:59 Last Admin: 11/08/17 17:22 Dose: 1 mg Donepezil HCl (Aricept) 5 mg PO DAILY [facility] Stop: 01/04/18 08:59 Last Admin: 11/08/17 10:54 Dose: 5 mg Famotidine (Pepcid) 20 mg PO BID [facility] Stop: 12/30/17 23:24 Last Admin: 11/08/17 17:23 Dose: 20 mg Fluconazole (Diflucan) 100 mg PO DAILY [facility] Stop: 12/30/17 23:24 Last Admin: 11/08/17 10:49 Dose: 100 mg Heparin Sodium (Porcine) (Heparin) 5,000 units SUBQ Q12HR [facility] PRN Reason: Protocol Stop: 12/30/17 23:24 Last Admin: 11/08/17 20:26 Dose: Not Given Vancomycin HCl 500 mg/ Sodium (Chloride) 100 mls @ 100 mls/hr IV Q8HR [facility] Stop: 01/07/18 22:29 Last Admin: 11/09/17 05:03 Dose: 100 mls/hr Insulin Aspart (Novolog Insulin Sliding Scale) 0 units SUBQ ACHS [facility] PRN Reason: Protocol Stop: 12/30/17 23:24 Last Admin: 11/08/17 20:25 Dose: Not Given Insulin Aspart (Novolog Insulin Sliding Scale) 0 units SUBQ ACHS [facility] PRN Reason: Protocol Stop: 05/16/18 07:29 Last Admin: 11/08/17 20:25 Dose: Not Given Insulin Detemir (Levemir Insulin) 18 units SUBQ DAILY [facility] PRN Reason: Protocol Stop: 12/30/17 23:24 Last Admin: 11/08/17 09:00 Dose: Not Given Magnesium Hydroxide (Milk Of Magnesia) 30 ml PO HS PRN PRN Reason: Constipation Stop: 12/30/17 23:24 Metformin HCl (Glucophage) 1,000 mg PO DAILY [facility] Stop: 12/31/17 09:59 Last Admin: 11/08/17 10:48 Dose: 1,000 mg Metoprolol Succinate (Toprol Xl) 25 mg PO DAILY [facility] Stop: 12/30/17 23:24 Last Admin: 11/08/17 10:54 Dose: 25 mg Miscellaneous (Vte Chemical Prophylaxis Screen/ Admission) 1 ea PRN PRN PRN Reason: PROTOCOL Stop: 12/31/17 10:29 Miscellaneous (Vancomycin Iv Per Pharmacy) 1 [facility] PRN PRN PRN Reason: PROTOCOL Stop: 01/07/18 16:10 Olanzapine (Zyprexa Zydis) 10 mg PO BID [facility] PRN Reason: Protocol Stop: 01/05/18 07:53 Last Admin: 11/08/17 17:22 Dose: 10 mg Zolpidem Tartrate (Ambien) 5 mg PO HS PRN PRN Reason: insomnia Stop: 12/30/17 23:24 Last Admin: 11/03/17 19:55 Dose: 5 mg General: Alert, No acute distress HEENT: Atraumatic, PERRLA, EOMI Neck: Supple, JVD, +2 carotid pulse wo bruit Cardiovascular: Regular rate, Normal S1, Normal S2 Lungs: Clear to auscultation Abdomen: Bowel sounds, Soft Extremities: no Clubbing, no Cyanosis, no Edema Neurological: Sensation intact Skin: no Rash Psych/Mental Status: Other (psychosis) - Procedures Procedures: Procedures Procedure Code Date JEWEL MUSC/FASCIA 20 SQ CM/< 28774 10/12/17 EXCISION OF RIGHT HIP MUSCLE, OPEN APPROACH [id number] 10/12/17 INTRODUCTION OF SERUM/TOX/VACCINE INTO MUSCLE, PERC APPROACH [id number] 10/12/17 Assessment/Plan - Assessment Assessment: psychosis dementia Alzheimer's dementia diabetes mellitus not controlled. s/p wound debridement of sacral decubiti UTI hyperglycemia - Plan Plan: continue current medications. discharge planning. Nutritional Asmnt/Malnutr-PDOC - Dietary Evaluation Malnutrition Findings (Please click <Entered> for more info): Nutritional Asmnt/Malnutrition Start: 11/05/17 16: 25 Text: Status: Complete Freq: Document 11/05/17 16:25 GREY (Rec: 11/05/17 16:31 GREY [email or web address]) Nutritional Asmnt/Malnutrition Patient General Information Nutritional Screening Moderate Risk Diagnosis dehydration Pertinent Medical Hx/Surgical Hx DM, dementia, depression, psychosis, schizophrenia, chronic renal insuff Subjective Information Pt is agitated, on 1:1 sitter. Per EMR, PO intake 25-75%, avg 50%. Current Diet Order/ Nutrition Support pureed, CCHO 60gm Pertinent Medications novolov, levemir, glucophage Pertinent Labs 11/03- POC 181-316 Nutritional Hx/Data Height 1.8 m Height (Calculated Centimeters) 180.3 Current Weight (lbs) 77.111 kg Weight (Calculated Kilograms) 77.1 Weight (Calculated Grams) 59545.7 [place] Body Weight 172 Body Mass Index (BMI) 23.7 Weight Status Approriate GI Symptoms GI Symptoms None Last BM 11/03 Difficult in: None Skin Integrity/Comment: pressure ulcer, decubitus Current %PO Fair (50-74%) Estimated Nutritional Goals BEE in Kcals: Using Current wt Calories/Kcals/Kg 25-30 Kcals Calculated 2174-5321 Protein: Using Current wt Protein g/k-1.2 Protein Calculated 77-92 Fluid: ml 1925-2310ml (1ml/kcal) Nutritional Problem 1. Problem Problem altered nutrition related lab values Etiology hx of DM Signs/Symptoms: glucose 169, POC 181-316 Malnutrition Alert Protein-Calorie Malnutrition N/A Is there a minimum of two criteria No selected? Query Text:Check all the applicable criteria. A minimum of two criteria are recommended for diagnosis of either severe or non-severe malnutrition. Intervention/Recommendation Comments 1. Continue with current diet as ordered. 2. Monitor PO intake, wt, labs and skin integrity 3. F/U as moderate risk in 3-5 days, 11/08-11/10 Expected Outcomes/Goals Expected Outcomes/Goals 1. PO intake to meet at least 75% of nutritional needs. 2. Wt stability, skin to remain intact, labs to approach WNL.
[2017-11-09 06:00] LABS: ANION GAP 14.1 (7.0-16.0); BUN - UREA NITROGEN 9 mg/dL (7-25); CALCIUM SERUM 9.3 mg/dL (8.6-10.3); CARBON DIOXIDE 25.3 mEq/L (21.0-31.0); CHLORIDE 99 mEq/L (98-107); CREATININE - SERUM 0.9 mg/dL (0.7-1.3); GLUCOSE 240 mg/dL (70-105); POTASSIUM SERUM 4.4 mEq/L (3.5-5.1); SODIUM SERUM 134 mEq/L (136-145)
[2017-11-09] MEDS: OLANZapine 5 mg Oral Disintegrating Tab PO SCH ×2 (10:03→16:28)
[2017-11-09] MEDS: Insulin Detemir 100 units/mL 10mL Vial SUBQ SCH (10:03)
[2017-11-09] MEDS: INSULIN ASPART SLIDING SCALE 100 UNITS/ML UNIT SUBQ SCH ×6 (10:04→22:21)
[2017-11-09] MEDS: Venelex 60gm Tube TP SCH (10:54)
--- NOTE | 2017-11-09 16:27 | General Progress Note ---
Subjective - Review of Systems Service Date: 11/09/17 Subjective: lying in bed, still periods of agitation Objective - Results Result Diagrams: 11/09/17 05:00 Recent Labs: Laboratory Last Values PT 9.5 SECONDS (9.5-11.5) 11/05/17 21:35 INR 0.91 (0.5-1.4) 11/05/17 21:35 Sodium 134 mEq/L (136-145) L 11/09/17 05:00 Potassium 4.4 mEq/L (3.5-5.1) 11/09/17 05:00 Chloride 99 mEq/L (98-107) 11/09/17 05:00 Carbon Dioxide 25.3 mEq/L (21.0-31.0) 11/09/17 05:00 Anion Gap 14.1 (7.0-16.0) 11/09/17 05:00 BUN 9 mg/dL (7-25) 11/09/17 05:00 Creatinine 0.9 mg/dL (0.7-1.3) 11/09/17 05:00 Est GFR ( Amer) TNP 11/09/17 05:00 Est GFR (Non-Af Amer) TNP 11/09/17 05:00 BUN/Creatinine Ratio 10.0 11/09/17 05:00 Glucose 240 mg/dL (70-105) H 11/09/17 05:00 POC Glucose 234 MG/DL (70 - 105) H 11/09/17 13:19 Calcium 9.3 mg/dL (8.6-10.3) 11/09/17 05:00 Vancomycin Trough 5.5 ug/mL (10-20) L 11/09/17 12:07 - Physical Exam Vitals and I&O: Vital Signs Temp 98.0 F 11/09/17 04:00 Pulse 94 11/09/17 10:02 Resp 18 11/09/17 04:00 BP 188/88 11/09/17 10:02 Pulse Ox 96 11/09/17 04:00 Intake & Output 11/08/17 11/09/17 11/09/17 18:59 06:59 18:59 Intake Total 940 Output Total 600 Balance 340 Weight (lbs) 77.111 kg 77.111 kg Intake: Intake, IV Amount 100 Vancomycin HCl 500 mg In 100 Sodium Chloride 0.9% 100 ml @ 100 mls/hr IV Q8HR [facility] Rx#:[id number] Oral 840 Output: Urine 600 Other: # Voids 4 Weight Source Bedscale Bedscale Active Medications: Current Medications Acetaminophen (Tylenol) 650 mg PO Q6H PRN PRN Reason: mild to moderate pain Stop: 12/30/17 23:24 Acetaminophen/Hydrocodone Bitart ([place] 5mg/325mg) 1 tab PO Q6H PRN PRN Reason: Pain (Moderate) Stop: 12/30/17 23:24 Allopurinol (Zyloprim) 100 mg PO DAILY [facility] Stop: 12/30/17 23:24 Last Admin: 11/09/17 10:00 Dose: Not Given [place] Oil/Swedish Balsam/Trypsin (Venelex) 1 appl TP DAILY [facility] Stop: 12/30/17 23:24 Last Admin: 11/09/17 10:54 Dose: 1 appl Clonazepam (Klonopin) 1 mg PO BID [facility] PRN Reason: Protocol Stop: 12/31/17 09:59 Last Admin: 11/09/17 10:01 Dose: Not Given Donepezil HCl (Aricept) 5 mg PO DAILY [facility] Stop: 01/04/18 08:59 Last Admin: 11/09/17 10:01 Dose: Not Given Famotidine (Pepcid) 20 mg PO BID [facility] Stop: 12/30/17 23:24 Last Admin: 11/09/17 10:02 Dose: Not Given Fluconazole (Diflucan) 100 mg PO DAILY [facility] Stop: 12/30/17 23:24 Last Admin: 11/09/17 10:02 Dose: Not Given Heparin Sodium (Porcine) (Heparin) 5,000 units SUBQ Q12HR [facility] PRN Reason: Protocol Stop: 12/30/17 23:24 Last Admin: 11/09/17 10:04 Dose: Not Given Vancomycin HCl 1 gm/ Dextrose 250 mls @ 165 mls/hr IV Q12H [facility] Stop: 01/08/18 13:59 Insulin Aspart (Novolog Insulin Sliding Scale) 0 units SUBQ ACHS [facility] PRN Reason: Protocol Stop: 12/31/17 07:29 Last Admin: 11/09/17 13:53 Dose: 4 units Insulin Detemir (Levemir Insulin) 18 units SUBQ DAILY [facility] PRN Reason: Protocol Stop: 12/30/17 23:24 Last Admin: 11/09/17 10:03 Dose: Not Given Magnesium Hydroxide (Milk Of Magnesia) 30 ml PO HS PRN PRN Reason: Constipation Stop: 12/30/17 23:24 Metformin HCl (Glucophage) 1,000 mg PO DAILY [facility] Stop: 12/31/17 09:59 Last Admin: 11/09/17 10:02 Dose: Not Given Metoprolol Succinate (Toprol Xl) 25 mg PO DAILY [facility] Stop: 12/30/17 23:24 Last Admin: 11/09/17 10:02 Dose: Not Given Miscellaneous (Vte Chemical Prophylaxis Screen/ Admission) 1 [facility] PRN PRN PRN Reason: PROTOCOL Stop: 12/31/17 10:29 Miscellaneous (Vancomycin Iv Per Pharmacy) 1 [facility] PRN PRN PRN Reason: PROTOCOL Stop: 01/07/18 16:10 Olanzapine (Zyprexa Zydis) 10 mg PO BID [facility] PRN Reason: Protocol Stop: 01/05/18 07:53 Last Admin: 11/09/17 10:03 Dose: Not Given Zolpidem Tartrate (Ambien) 5 mg PO HS PRN PRN Reason: insomnia Stop: 12/30/17 23:24 Last Admin: 11/03/17 19:55 Dose: 5 mg General: Alert, No acute distress HEENT: Atraumatic, PERRLA, EOMI Neck: Supple, JVD, +2 carotid pulse wo bruit Cardiovascular: Regular rate, Normal S1, Normal S2 Lungs: Clear to auscultation Abdomen: Bowel sounds, Soft Extremities: no Clubbing, no Cyanosis, no Edema Neurological: Sensation intact Skin: no Rash Psych/Mental Status: Other (psychosis) - Procedures Procedures: Procedures Procedure Code Date JEWEL MUSC/FASCIA 20 SQ CM/< 23818 10/12/17 EXCISION OF RIGHT HIP MUSCLE, OPEN APPROACH [id number] 10/12/17 INTRODUCTION OF SERUM/TOX/VACCINE INTO MUSCLE, PERC APPROACH [id number] 10/12/17 Assessment/Plan - Assessment Assessment: S/P KEN S/P electrolyte imbalance Acute decomp of Psychosis Type 2 DM MRSA, Yeast UTI - Plan Plan: Lab - Result Diagrams 11/01/17 06:48 Current Medications Acetaminophen (Tylenol) 650 mg PO Q6H PRN PRN Reason: mild to moderate pain Stop: 12/30/17 23:24 Acetaminophen/Hydrocodone Bitart ([place] 5mg/325mg) 1 tab PO Q6H PRN PRN Reason: Pain (Moderate) Stop: 12/30/17 23:24 Allopurinol (Zyloprim) 100 mg PO DAILY [facility] Stop: 12/30/17 23:24 Last Admin: 11/01/17 10:54 Dose: 100 mg [place] Oil/[place] Balsam/Trypsin (Venelex) 1 appl TP DAILY [facility] Stop: 12/30/17 23:24 Last Admin: 11/01/17 11:02 Dose: 1 appl Clonazepam (Klonopin) 1 mg PO BID [facility] PRN Reason: Protocol Stop: 12/31/17 09:59 Famotidine (Pepcid) 20 mg PO BID [facility] Stop: 12/30/17 23:24 Last Admin: 11/01/17 10:54 Dose: 20 mg Fluconazole (Diflucan) 100 mg PO DAILY [facility] Stop: 12/30/17 23:24 Last Admin: 11/01/17 11:02 Dose: 100 mg Heparin Sodium (Porcine) (Heparin) 5,000 units SUBQ Q12HR [facility] PRN Reason: Protocol Stop: 12/30/17 23:24 Last Admin: 11/01/17 10:59 Dose: 5,000 units Levofloxacin (Levaquin Pb) 500 mg in 100 mls @ 100 mls/hr IV Q24H [facility] Stop: 12/31/17 11:59 Insulin Aspart (Novolog Insulin Sliding Scale) 0 units SUBQ ACHS [facility] PRN Reason: Protocol Stop: 12/30/17 23:24 Last Admin: 11/01/17 10:45 Dose: 2 units Insulin Aspart (Novolog Insulin Sliding Scale) 0 units SUBQ ACHS [facility] PRN Reason: Protocol Stop: 12/31/17 07:29 Insulin Detemir (Levemir Insulin) 18 units SUBQ DAILY [facility] PRN Reason: Protocol Stop: 12/30/17 23:24 Last Admin: 11/01/17 10:56 Dose: 18 units Lorazepam (Ativan) 0.5 mg PO Q6HR PRN; Protocol PRN Reason: agitation Stop: 12/30/17 23:24 Magnesium Hydroxide (Milk Of Magnesia) 30 ml PO HS PRN PRN Reason: Constipation Stop: 12/30/17 23:24 Metformin HCl (Glucophage) 1,000 mg PO DAILY [facility] Stop: 12/31/17 09:59 Metoprolol Succinate (Toprol Xl) 25 mg PO DAILY [facility] Stop: 12/30/17 23:24 Last Admin: 11/01/17 10:55 Dose: 25 mg Miscellaneous (Vte Chemical Prophylaxis Screen/ Admission) 1 [facility] PRN PRN PRN Reason: PROTOCOL Stop: 12/31/17 10:29 Olanzapine (Zyprexa Zydis) 5 mg PO DAILY [facility] PRN Reason: Protocol Stop: 12/31/17 09:59 Zolpidem Tartrate (Ambien) 5 mg PO HS PRN PRN Reason: insomnia Stop: 12/30/17 23:24 Lab - Result Diagrams 11/09/17 05:00 kidney fnc remain stable encourage po intake psych meds start Vanco W/ Diflucan Nutritional Asmnt/Malnutr-PDOC - Dietary Evaluation Malnutrition Findings (Please click <Entered> for more info): Nutritional Asmnt/Malnutrition Start: 11/05/17 16: 25 Text: Status: Complete Freq: Document 11/05/17 16:25 LCHENG (Rec: 11/05/17 16:31 LCHENG [email or web address]) Nutritional Asmnt/Malnutrition Patient General Information Nutritional Screening Moderate Risk Diagnosis dehydration Pertinent Medical Hx/Surgical Hx DM, dementia, depression, psychosis, schizophrenia, chronic renal insuff Subjective Information Pt is agitated, on 1:1 sitter. Per EMR, PO intake 25-75%, avg 50%. Current Diet Order/ Nutrition Support pureed, CCHO 60gm Pertinent Medications novolov, levemir, glucophage Pertinent Labs 11/03- POC 181-316 Nutritional Hx/Data Height 1.8 m Height (Calculated Centimeters) 180.3 Current Weight (lbs) 77.111 kg Weight (Calculated Kilograms) 77.1 Weight (Calculated Grams) 75053.7 [place] Body Weight 172 Body Mass Index (BMI) 23.7 Weight Status Approriate GI Symptoms GI Symptoms None Last BM 11/03 Difficult in: None Skin Integrity/Comment: pressure ulcer, decubitus Current %PO Fair (50-74%) Estimated Nutritional Goals BEE in Kcals: Using Current wt Calories/Kcals/Kg 25-30 Kcals Calculated 9845-3800 Protein: Using Current wt Protein g/k-1.2 Protein Calculated 77-92 Fluid: ml 1925-2310ml (1ml/kcal) Nutritional Problem 1. Problem Problem altered nutrition related lab values Etiology hx of DM Signs/Symptoms: glucose 169, POC 181-316 Malnutrition Alert Protein-Calorie Malnutrition N/A Is there a minimum of two criteria No selected? Query Text:Check all the applicable criteria. A minimum of two criteria are recommended for diagnosis of either severe or non-severe malnutrition. Intervention/Recommendation Comments 1. Continue with current diet as ordered. 2. Monitor PO intake, wt, labs and skin integrity 3. F/U as moderate risk in 3-5 days, 11/08-11/10 Expected Outcomes/Goals Expected Outcomes/Goals 1. PO intake to meet at least 75% of nutritional needs. 2. Wt stability, skin to remain intact, labs to approach WNL.
--- NOTE | 2017-11-09 23:35 | Infectious Disease Prog Note ---
Infectious Disease Subjective - Review of Systems Service Date: 11/09/17 Subjective: No fever Infectious Disease Objective - Results Result Diagrams: 11/09/17 05:00 Recent Labs: Laboratory Last Values PT 9.5 SECONDS (9.5-11.5) 11/05/17 21:35 INR 0.91 (0.5-1.4) 11/05/17 21:35 Sodium 134 mEq/L (136-145) L 11/09/17 05:00 Potassium 4.4 mEq/L (3.5-5.1) 11/09/17 05:00 Chloride 99 mEq/L (98-107) 11/09/17 05:00 Carbon Dioxide 25.3 mEq/L (21.0-31.0) 11/09/17 05:00 Anion Gap 14.1 (7.0-16.0) 11/09/17 05:00 BUN 9 mg/dL (7-25) 11/09/17 05:00 Creatinine 0.9 mg/dL (0.7-1.3) 11/09/17 05:00 Est GFR ( Amer) TNP 11/09/17 05:00 Est GFR (Non-Af Amer) TNP 11/09/17 05:00 BUN/Creatinine Ratio 10.0 11/09/17 05:00 Glucose 240 mg/dL (70-105) H 11/09/17 05:00 POC Glucose 246 MG/DL (70 - 105) H 11/09/17 21:02 Calcium 9.3 mg/dL (8.6-10.3) 11/09/17 05:00 Vancomycin Trough 5.5 ug/mL (10-20) L 11/09/17 12:07 - Physical Exam Vitals and I&O: Vital Signs Temp 96.4 F 11/09/17 16:00 Pulse 92 11/09/17 16:00 Resp 19 11/09/17 16:00 BP 158/79 11/09/17 16:00 Pulse Ox 95 11/09/17 16:00 Intake & Output 11/09/17 11/09/17 11/10/17 06:59 18:59 06:59 Intake Total 940 400 250 Output Total 600 500 Balance 340 -100 250 Weight (lbs) 77.111 kg 77.111 kg Intake: Intake, IV Amount 100 250 Vancomycin HCl 1 gm In 250 Dextrose 5% 250 ml @ 165 mls/hr IV Q12H [facility] Rx#: [id number] Vancomycin HCl 500 mg In 100 Sodium Chloride 0.9% 100 ml @ 100 mls/hr IV Q8HR [facility] Rx#:[id number] Oral 840 400 Output: Urine 600 500 Other: # Voids 4 # Bowel Movements 0 Weight Source Bedscale Bedscale Active Medications: Current Medications Acetaminophen (Tylenol) 650 mg PO Q6H PRN PRN Reason: mild to moderate pain Stop: 12/30/17 23:24 Acetaminophen/Hydrocodone Bitart ([place] 5mg/325mg) 1 tab PO Q6H PRN PRN Reason: Pain (Moderate) Stop: 12/30/17 23:24 Allopurinol (Zyloprim) 100 mg PO DAILY [facility] Stop: 12/30/17 23:24 Last Admin: 11/09/17 10:00 Dose: Not Given [place] Oil/[place] Balsam/Trypsin (Venelex) 1 appl TP DAILY [facility] Stop: 12/30/17 23:24 Last Admin: 11/09/17 10:54 Dose: 1 appl Clonazepam (Klonopin) 1 mg PO BID [facility] PRN Reason: Protocol Stop: 12/31/17 09:59 Last Admin: 11/09/17 16:28 Dose: 1 mg Donepezil HCl (Aricept) 5 mg PO DAILY [facility] Stop: 01/04/18 08:59 Last Admin: 11/09/17 10:01 Dose: Not Given Famotidine (Pepcid) 20 mg PO BID [facility] Stop: 12/30/17 23:24 Last Admin: 11/09/17 16:28 Dose: 20 mg Fluconazole (Diflucan) 100 mg PO DAILY [facility] Stop: 12/30/17 23:24 Last Admin: 11/09/17 10:02 Dose: Not Given Heparin Sodium (Porcine) (Heparin) 5,000 units SUBQ Q12HR [facility] PRN Reason: Protocol Stop: 12/30/17 23:24 Last Admin: 11/09/17 22:22 Dose: 5,000 units Vancomycin HCl 1 gm/ Dextrose 250 mls @ 165 mls/hr IV Q12H [facility] Stop: 01/08/18 13:59 Last Infusion: 11/09/17 20:02 Dose: Infused Insulin Aspart (Novolog Insulin Sliding Scale) 0 units SUBQ ACHS [facility] PRN Reason: Protocol Stop: 12/31/17 07:29 Last Admin: 11/09/17 22:21 Dose: 4 units Insulin Detemir (Levemir Insulin) 18 units SUBQ DAILY [facility] PRN Reason: Protocol Stop: 12/30/17 23:24 Last Admin: 11/09/17 10:03 Dose: Not Given Magnesium Hydroxide (Milk Of Magnesia) 30 ml PO HS PRN PRN Reason: Constipation Stop: 12/30/17 23:24 Metformin HCl (Glucophage) 1,000 mg PO DAILY [facility] Stop: 12/31/17 09:59 Last Admin: 11/09/17 10:02 Dose: Not Given Metoprolol Succinate (Toprol Xl) 25 mg PO DAILY [facility] Stop: 12/30/17 23:24 Last Admin: 11/09/17 10:02 Dose: Not Given Miscellaneous (Vte Chemical Prophylaxis Screen/ Admission) 1 [facility] PRN PRN PRN Reason: PROTOCOL Stop: 12/31/17 10:29 Miscellaneous (Vancomycin Iv Per Pharmacy) 1 [facility] PRN PRN PRN Reason: PROTOCOL Stop: 01/07/18 16:10 Olanzapine (Zyprexa Zydis) 10 mg PO BID [facility] PRN Reason: Protocol Stop: 01/05/18 07:53 Last Admin: 11/09/17 16:28 Dose: 10 mg Zolpidem Tartrate (Ambien) 5 mg PO HS PRN PRN Reason: insomnia Stop: 12/30/17 23:24 Last Admin: 11/03/17 19:55 Dose: 5 mg HEENT: atraumatic, normocephalic, PERRLA, EOMI Neck: supple Cardiovascular: S1S2, regular Lungs: clear to auscultation bilaterally, clear to percussion Neurological: awake, alert Skin: other (sacral wound) - Procedures Procedures: Procedures Procedure Code Date JEWEL MUSC/FASCIA 20 SQ CM/< 67853 10/12/17 EXCISION OF RIGHT HIP MUSCLE, OPEN APPROACH [id number] 10/12/17 INTRODUCTION OF SERUM/TOX/VACCINE INTO MUSCLE, PERC APPROACH [id number] 10/12/17 Infectious Disease Assmt/Plan - Assessment Assessment: 1. Sacral decubitus ulcer. 2. UTI. Treated 3. Dementia. - Plan Plan: wound care. Nutritional Asmnt/Malnutr-PDOC - Dietary Evaluation Malnutrition Findings (Please click <Entered> for more info): Nutritional Asmnt/Malnutrition Start: 11/05/17 16: 25 Text: Status: Complete Freq: Document 11/05/17 16:25 GREY (Rec: 11/05/17 16:31 GREY [email or web address]) Nutritional Asmnt/Malnutrition Patient General Information Nutritional Screening Moderate Risk Diagnosis dehydration Pertinent Medical Hx/Surgical Hx DM, dementia, depression, psychosis, schizophrenia, chronic renal insuff Subjective Information Pt is agitated, on 1:1 sitter. Per EMR, PO intake 25-75%, avg 50%. Current Diet Order/ Nutrition Support pureed, CCHO 60gm Pertinent Medications novolov, levemir, glucophage Pertinent Labs POC 181-316 Nutritional Hx/Data Height 1.8 m Height (Calculated Centimeters) 180.3 Current Weight (lbs) 77.111 kg Weight (Calculated Kilograms) 77.1 Weight (Calculated Grams) 06922.7 [place] Body Weight 172 Body Mass Index (BMI) 23.7 Weight Status Approriate GI Symptoms GI Symptoms None Last BM 11/03 Difficult in: None Skin Integrity/Comment: pressure ulcer, decubitus Current %PO Fair (50-74%) Estimated Nutritional Goals BEE in Kcals: Using Current wt Calories/Kcals/Kg 25-30 Kcals Calculated 6886-9207 Protein: Using Current wt Protein g/k-1.2 Protein Calculated 77-92 Fluid: ml 1925-2310ml (1ml/kcal) Nutritional Problem 1. Problem Problem altered nutrition related lab values Etiology hx of DM Signs/Symptoms: glucose 169, POC 181-316 Malnutrition Alert Protein-Calorie Malnutrition N/A Is there a minimum of two criteria No selected? Query Text:Check all the applicable criteria. A minimum of two criteria are recommended for diagnosis of either severe or non-severe malnutrition. Intervention/Recommendation Comments 1. Continue with current diet as ordered. 2. Monitor PO intake, wt, labs and skin integrity 3. F/U as moderate risk in 3-5 days, 11/08-11/10 Expected Outcomes/Goals Expected Outcomes/Goals 1. PO intake to meet at least 75% of nutritional needs. 2. Wt stability, skin to remain intact, labs to approach WNL.
[2017-11-10] MEDS: INSULIN ASPART SLIDING SCALE 100 UNITS/ML UNIT SUBQ SCH ×4 (08:05→21:13)
--- NOTE | 2017-11-10 08:12 | General Progress Note ---
Subjective - Review of Systems Service Date: 11/10/17 Subjective: Patient resting comfortably in bed. no acute distress. In good spirits today. pleasant. cooperative today. eating well Objective - Results Result Diagrams: 11/09/17 05:00 Recent Labs: Laboratory Last Values PT 9.5 SECONDS (9.5-11.5) 11/05/17 21:35 INR 0.91 (0.5-1.4) 11/05/17 21:35 Sodium 134 mEq/L (136-145) L 11/09/17 05:00 Potassium 4.4 mEq/L (3.5-5.1) 11/09/17 05:00 Chloride 99 mEq/L (98-107) 11/09/17 05:00 Carbon Dioxide 25.3 mEq/L (21.0-31.0) 11/09/17 05:00 Anion Gap 14.1 (7.0-16.0) 11/09/17 05:00 BUN 9 mg/dL (7-25) 11/09/17 05:00 Creatinine 0.9 mg/dL (0.7-1.3) 11/09/17 05:00 Est GFR ( Amer) TNP 11/09/17 05:00 Est GFR (Non-Af Amer) TNP 11/09/17 05:00 BUN/Creatinine Ratio 10.0 11/09/17 05:00 Glucose 240 mg/dL (70-105) H 11/09/17 05:00 POC Glucose 264 MG/DL (70 - 105) H 11/10/17 06:28 Calcium 9.3 mg/dL (8.6-10.3) 11/09/17 05:00 Vancomycin Trough 5.5 ug/mL (10-20) L 11/09/17 12:07 - Physical Exam Vitals and I&O: Vital Signs Temp 97.6 F 11/10/17 04:00 Pulse 71 11/10/17 04:00 Resp 20 11/10/17 04:00 BP 146/66 11/10/17 04:00 Pulse Ox 100 11/10/17 04:00 Intake & Output 11/09/17 11/10/17 11/10/17 18:59 06:59 18:59 Intake Total 400 750 Output Total 500 750 Balance -100 0 Weight (lbs) 77.111 kg 77.111 kg Intake: Intake, IV Amount 250 Vancomycin HCl 1 gm In 250 Dextrose 5% 250 ml @ 165 mls/hr IV Q12H [facility] Rx#: [id number] Oral 400 500 Output: Urine 500 750 Other: # Bowel Movements 0 Weight Source Bedscale Bedscale Active Medications: Current Medications Acetaminophen (Tylenol) 650 mg PO Q6H PRN PRN Reason: mild to moderate pain Stop: 12/30/17 23:24 Acetaminophen/Hydrocodone Bitart ([place] 5mg/325mg) 1 tab PO Q6H PRN PRN Reason: Pain (Moderate) Stop: 12/30/17 23:24 Allopurinol (Zyloprim) 100 mg PO DAILY [facility] Stop: 12/30/17 23:24 Last Admin: 11/09/17 10:00 Dose: Not Given [place] Oil/[place] Balsam/Trypsin (Venelex) 1 appl TP DAILY [facility] Stop: 12/30/17 23:24 Last Admin: 11/09/17 10:54 Dose: 1 appl Clonazepam (Klonopin) 1 mg PO BID [facility] PRN Reason: Protocol Stop: 12/31/17 09:59 Last Admin: 11/09/17 16:28 Dose: 1 mg Donepezil HCl (Aricept) 5 mg PO DAILY [facility] Stop: 01/04/18 08:59 Last Admin: 11/09/17 10:01 Dose: Not Given Famotidine (Pepcid) 20 mg PO BID [facility] Stop: 12/30/17 23:24 Last Admin: 11/09/17 16:28 Dose: 20 mg Fluconazole (Diflucan) 100 mg PO DAILY [facility] Stop: 12/30/17 23:24 Last Admin: 11/09/17 10:02 Dose: Not Given Heparin Sodium (Porcine) (Heparin) 5,000 units SUBQ Q12HR [facility] PRN Reason: Protocol Stop: 12/30/17 23:24 Last Admin: 11/09/17 22:22 Dose: 5,000 units Vancomycin HCl 1 gm/ Dextrose 250 mls @ 165 mls/hr IV Q12H [facility] Stop: 01/08/18 13:59 Last Admin: 11/10/17 02:52 Dose: 165 mls/hr Insulin Aspart (Novolog Insulin Sliding Scale) 0 units SUBQ ACHS [facility] PRN Reason: Protocol Stop: 12/31/17 07:29 Last Admin: 11/10/17 08:05 Dose: 6 units Insulin Detemir (Levemir Insulin) 18 units SUBQ DAILY [facility] PRN Reason: Protocol Stop: 12/30/17 23:24 Last Admin: 11/09/17 10:03 Dose: Not Given Magnesium Hydroxide (Milk Of Magnesia) 30 ml PO HS PRN PRN Reason: Constipation Stop: 12/30/17 23:24 Metformin HCl (Glucophage) 1,000 mg PO DAILY [facility] Stop: 12/31/17 09:59 Last Admin: 11/09/17 10:02 Dose: Not Given Metoprolol Succinate (Toprol Xl) 25 mg PO DAILY [facility] Stop: 12/30/17 23:24 Last Admin: 11/09/17 10:02 Dose: Not Given Miscellaneous (Vte Chemical Prophylaxis Screen/ Admission) 1 [facility] PRN PRN PRN Reason: PROTOCOL Stop: 12/31/17 10:29 Miscellaneous (Vancomycin Iv Per Pharmacy) 1 [facility] PRN PRN PRN Reason: PROTOCOL Stop: 01/07/18 16:10 Olanzapine (Zyprexa Zydis) 10 mg PO BID [facility] PRN Reason: Protocol Stop: 01/05/18 07:53 Last Admin: 11/09/17 16:28 Dose: 10 mg Zolpidem Tartrate (Ambien) 5 mg PO HS PRN PRN Reason: insomnia Stop: 12/30/17 23:24 Last Admin: 11/03/17 19:55 Dose: 5 mg General: Alert, No acute distress HEENT: Atraumatic, PERRLA, EOMI Neck: Supple, JVD, +2 carotid pulse wo bruit Cardiovascular: Regular rate, Normal S1, Normal S2 Lungs: Clear to auscultation Abdomen: Bowel sounds, Soft Extremities: no Clubbing, no Cyanosis, no Edema Neurological: Sensation intact Skin: no Rash Psych/Mental Status: Other (psychosis) - Procedures Procedures: Procedures Procedure Code Date JEWEL MUSC/FASCIA 20 SQ CM/< 79310 10/12/17 EXCISION OF RIGHT HIP MUSCLE, OPEN APPROACH [id number] 10/12/17 INTRODUCTION OF SERUM/TOX/VACCINE INTO MUSCLE, PERC APPROACH [id number] 10/12/17 Assessment/Plan - Assessment Assessment: psychosis dementia Alzheimer's dementia diabetes mellitus not controlled. s/p wound debridement of sacral decubiti UTI hyperglycemia - Plan Plan: continue current medications. for possible discharge today Nutritional Asmnt/Malnutr-PDOC - Dietary Evaluation Malnutrition Findings (Please click <Entered> for more info): Nutritional Asmnt/Malnutrition Start: 11/05/17 16: 25 Text: Status: Complete Freq: Document 11/05/17 16:25 [email or web address] (Rec: 11/05/17 16:31 LCHEATHER [email or web address]) Nutritional Asmnt/Malnutrition Patient General Information Nutritional Screening Moderate Risk Diagnosis dehydration Pertinent Medical Hx/Surgical Hx DM, dementia, depression, psychosis, schizophrenia, chronic renal insuff Subjective Information Pt is agitated, on 1:1 sitter. Per EMR, PO intake 25-75%, avg 50%. Current Diet Order/ Nutrition Support pureed, CCHO 60gm Pertinent Medications novolov, levemir, glucophage Pertinent Labs POC 181-316 Nutritional Hx/Data Height 1.8 m Height (Calculated Centimeters) 180.3 Current Weight (lbs) 77.111 kg Weight (Calculated Kilograms) 77.1 Weight (Calculated Grams) 24176.7 [place] Body Weight 172 Body Mass Index (BMI) 23.7 Weight Status Approriate GI Symptoms GI Symptoms None Last BM 11/03 Difficult in: None Skin Integrity/Comment: pressure ulcer, decubitus Current %PO Fair (50-74%) Estimated Nutritional Goals BEE in Kcals: Using Current wt Calories/Kcals/Kg 25-30 Kcals Calculated 5614-0606 Protein: Using Current wt Protein g/k-1.2 Protein Calculated 77-92 Fluid: ml 1925-2310ml (1ml/kcal) Nutritional Problem 1. Problem Problem altered nutrition related lab values Etiology hx of DM Signs/Symptoms: glucose 169, POC 181-316 Malnutrition Alert Protein-Calorie Malnutrition N/A Is there a minimum of two criteria No selected? Query Text:Check all the applicable criteria. A minimum of two criteria are recommended for diagnosis of either severe or non-severe malnutrition. Intervention/Recommendation Comments 1. Continue with current diet as ordered. 2. Monitor PO intake, wt, labs and skin integrity 3. F/U as moderate risk in 3-5 days, 11/08-11/10 Expected Outcomes/Goals Expected Outcomes/Goals 1. PO intake to meet at least 75% of nutritional needs. 2. Wt stability, skin to remain intact, labs to approach WNL.
[2017-11-10] MEDS: OLANZapine 5 mg Oral Disintegrating Tab PO SCH ×3 (08:25→17:00)
[2017-11-10] MEDS: Venelex 60gm Tube TP SCH (08:26)
[2017-11-10] MEDS: Insulin Detemir 100 units/mL 10mL Vial SUBQ SCH (08:28)
--- NOTE | 2017-11-10 11:39 | General Progress Note ---
Subjective - Review of Systems Service Date: 11/10/17 Subjective: lying in bed, still periods of agitation Objective - Results Result Diagrams: 11/09/17 05:00 Recent Labs: Laboratory Last Values PT 9.5 SECONDS (9.5-11.5) 11/05/17 21:35 INR 0.91 (0.5-1.4) 11/05/17 21:35 Sodium 134 mEq/L (136-145) L 11/09/17 05:00 Potassium 4.4 mEq/L (3.5-5.1) 11/09/17 05:00 Chloride 99 mEq/L (98-107) 11/09/17 05:00 Carbon Dioxide 25.3 mEq/L (21.0-31.0) 11/09/17 05:00 Anion Gap 14.1 (7.0-16.0) 11/09/17 05:00 BUN 9 mg/dL (7-25) 11/09/17 05:00 Creatinine 0.9 mg/dL (0.7-1.3) 11/09/17 05:00 Est GFR ( Amer) TNP 11/09/17 05:00 Est GFR (Non-Af Amer) TNP 11/09/17 05:00 BUN/Creatinine Ratio 10.0 11/09/17 05:00 Glucose 240 mg/dL (70-105) H 11/09/17 05:00 POC Glucose 264 MG/DL (70 - 105) H 11/10/17 06:28 Calcium 9.3 mg/dL (8.6-10.3) 11/09/17 05:00 Vancomycin Trough 5.5 ug/mL (10-20) L 11/09/17 12:07 - Physical Exam Vitals and I&O: Vital Signs Temp 97.6 F 11/10/17 04:00 Pulse 83 11/10/17 08:26 Resp 20 11/10/17 04:00 BP 130/75 11/10/17 08:26 Pulse Ox 100 11/10/17 04:00 Intake & Output 11/09/17 11/10/17 11/10/17 18:59 06:59 18:59 Intake Total 400 750 Output Total 500 750 Balance -100 0 Weight (lbs) 77.111 kg 77.111 kg Intake: Intake, IV Amount 250 Vancomycin HCl 1 gm In 250 Dextrose 5% 250 ml @ 165 mls/hr IV Q12H [facility] Rx#: [id number] Oral 400 500 Output: Urine 500 750 Other: # Bowel Movements 0 Weight Source Bedscale Bedscale Active Medications: Current Medications Acetaminophen (Tylenol) 650 mg PO Q6H PRN PRN Reason: mild to moderate pain Stop: 12/30/17 23:24 Acetaminophen/Hydrocodone Bitart ([place] 5mg/325mg) 1 tab PO Q6H PRN PRN Reason: Pain (Moderate) Stop: 12/30/17 23:24 Allopurinol (Zyloprim) 100 mg PO DAILY [facility] Stop: 12/30/17 23:24 Last Admin: 11/10/17 08:25 Dose: 100 mg [place] Oil/[place] Balsam/Trypsin (Venelex) 1 appl TP DAILY [facility] Stop: 12/30/17 23:24 Last Admin: 11/10/17 08:26 Dose: 1 appl Clonazepam (Klonopin) 1 mg PO BID [facility] PRN Reason: Protocol Stop: 12/31/17 09:59 Last Admin: 11/10/17 08:25 Dose: 1 mg Donepezil HCl (Aricept) 5 mg PO DAILY [facility] Stop: 01/04/18 08:59 Last Admin: 11/10/17 08:26 Dose: 5 mg Famotidine (Pepcid) 20 mg PO BID [facility] Stop: 12/30/17 23:24 Last Admin: 11/10/17 08:25 Dose: 20 mg Fluconazole (Diflucan) 100 mg PO DAILY [facility] Stop: 12/30/17 23:24 Last Admin: 11/10/17 08:25 Dose: 100 mg Heparin Sodium (Porcine) (Heparin) 5,000 units SUBQ Q12HR [facility] PRN Reason: Protocol Stop: 12/30/17 23:24 Last Admin: 11/10/17 08:26 Dose: 5,000 units Vancomycin HCl 1 gm/ Dextrose 250 mls @ 165 mls/hr IV Q12H [facility] Stop: 01/08/18 13:59 Last Admin: 11/10/17 02:52 Dose: 165 mls/hr Insulin Aspart (Novolog Insulin Sliding Scale) 0 units SUBQ ACHS [facility] PRN Reason: Protocol Stop: 12/31/17 07:29 Last Admin: 03/26/18 08:05 Dose: 6 units Insulin Detemir (Levemir Insulin) 18 units SUBQ DAILY [facility] PRN Reason: Protocol Stop: 12/30/17 23:24 Last Admin: 11/10/17 08:28 Dose: 18 units Magnesium Hydroxide (Milk Of Magnesia) 30 ml PO HS PRN PRN Reason: Constipation Stop: 12/30/17 23:24 Metformin HCl (Glucophage) 1,000 mg PO DAILY [facility] Stop: 12/31/17 09:59 Last Admin: 11/10/17 08:25 Dose: 1,000 mg Metoprolol Succinate (Toprol Xl) 25 mg PO DAILY [facility] Stop: 12/30/17 23:24 Last Admin: 11/10/17 08:26 Dose: 25 mg Miscellaneous (Vte Chemical Prophylaxis Screen/ Admission) 1 ea PRN PRN PRN Reason: PROTOCOL Stop: 12/31/17 10:29 Miscellaneous (Vancomycin Iv Per Pharmacy) 1 [facility] PRN PRN PRN Reason: PROTOCOL Stop: 01/07/18 16:10 Olanzapine (Zyprexa Zydis) 10 mg PO BID [facility] PRN Reason: Protocol Stop: 01/05/18 07:53 Last Admin: 11/10/17 08:25 Dose: 10 mg Zolpidem Tartrate (Ambien) 5 mg PO HS PRN PRN Reason: insomnia Stop: 12/30/17 23:24 Last Admin: 11/03/17 19:55 Dose: 5 mg General: Alert, No acute distress HEENT: Atraumatic, PERRLA, EOMI Neck: Supple, JVD, +2 carotid pulse wo bruit Cardiovascular: Regular rate, Normal S1, Normal S2 Lungs: Clear to auscultation Abdomen: Bowel sounds, Soft Extremities: no Clubbing, no Cyanosis, no Edema Neurological: Sensation intact Skin: no Rash Psych/Mental Status: Other (psychosis) - Procedures Procedures: Procedures Procedure Code Date JEWEL MUSC/FASCIA 20 SQ CM/< 00045 10/12/17 EXCISION OF RIGHT HIP MUSCLE, OPEN APPROACH [id number] 10/12/17 INTRODUCTION OF SERUM/TOX/VACCINE INTO MUSCLE, PERC APPROACH [id number] 10/12/17 Assessment/Plan - Assessment Assessment: S/P KEN S/P electrolyte imbalance Acute decomp of Psychosis Type 2 DM MRSA, Yeast UTI - Plan Plan: Lab - Result Diagrams 11/01/17 06:48 Current Medications Acetaminophen (Tylenol) 650 mg PO Q6H PRN PRN Reason: mild to moderate pain Stop: 12/30/17 23:24 Acetaminophen/Hydrocodone Bitart ([place] 5mg/325mg) 1 tab PO Q6H PRN PRN Reason: Pain (Moderate) Stop: 12/30/17 23:24 Allopurinol (Zyloprim) 100 mg PO DAILY [facility] Stop: 12/30/17 23:24 Last Admin: 11/01/17 10:54 Dose: 100 mg [place] Oil/[place] Balsam/Trypsin (Venelex) 1 appl TP DAILY [facility] Stop: 12/30/17 23:24 Last Admin: 11/01/17 11:02 Dose: 1 appl Clonazepam (Klonopin) 1 mg PO BID [facility] PRN Reason: Protocol Stop: 12/31/17 09:59 Famotidine (Pepcid) 20 mg PO BID [facility] Stop: 12/30/17 23:24 Last Admin: 11/01/17 10:54 Dose: 20 mg Fluconazole (Diflucan) 100 mg PO DAILY [facility] Stop: 12/30/17 23:24 Last Admin: 11/01/17 11:02 Dose: 100 mg Heparin Sodium (Porcine) (Heparin) 5,000 units SUBQ Q12HR [facility] PRN Reason: Protocol Stop: 12/30/17 23:24 Last Admin: 11/01/17 10:59 Dose: 5,000 units Levofloxacin (Levaquin Pb) 500 mg in 100 mls @ 100 mls/hr IV Q24H [facility] Stop: 12/31/17 11:59 Insulin Aspart (Novolog Insulin Sliding Scale) 0 units SUBQ ACHS [facility] PRN Reason: Protocol Stop: 12/30/17 23:24 Last Admin: 11/01/17 10:45 Dose: 2 units Insulin Aspart (Novolog Insulin Sliding Scale) 0 units SUBQ ACHS [facility] PRN Reason: Protocol Stop: 12/31/17 07:29 Insulin Detemir (Levemir Insulin) 18 units SUBQ DAILY [facility] PRN Reason: Protocol Stop: 12/30/17 23:24 Last Admin: 11/01/17 10:56 Dose: 18 units Lorazepam (Ativan) 0.5 mg PO Q6HR PRN; Protocol PRN Reason: agitation Stop: 12/30/17 23:24 Magnesium Hydroxide (Milk Of Magnesia) 30 ml PO HS PRN PRN Reason: Constipation Stop: 12/30/17 23:24 Metformin HCl (Glucophage) 1,000 mg PO DAILY [facility] Stop: 12/31/17 09:59 Metoprolol Succinate (Toprol Xl) 25 mg PO DAILY [facility] Stop: 12/30/17 23:24 Last Admin: 11/01/17 10:55 Dose: 25 mg Miscellaneous (Vte Chemical Prophylaxis Screen/ Admission) 1 [facility] PRN PRN PRN Reason: PROTOCOL Stop: 12/31/17 10:29 Olanzapine (Zyprexa Zydis) 5 mg PO DAILY [facility] PRN Reason: Protocol Stop: 12/31/17 09:59 Zolpidem Tartrate (Ambien) 5 mg PO HS PRN PRN Reason: insomnia Stop: 12/30/17 23:24 Lab - Result Diagrams 11/09/17 05:00 kidney fnc remain stable encourage po intake psych meds start Vanco W/ Diflucan Nutritional Asmnt/Malnutr-PDOC - Dietary Evaluation Malnutrition Findings (Please click <Entered> for more info): Nutritional Asmnt/Malnutrition Start: 11/05/17 16: 25 Text: Status: Complete Freq: Document 11/05/17 16:25 LCHEATHER (Rec: 11/05/17 16:31 LCHEATHER [facility]) Nutritional Asmnt/Malnutrition Patient General Information Nutritional Screening Moderate Risk Diagnosis dehydration Pertinent Medical Hx/Surgical Hx DM, dementia, depression, psychosis, schizophrenia, chronic renal insuff Subjective Information Pt is agitated, on 1:1 sitter. Per EMR, PO intake 25-75%, avg 50%. Current Diet Order/ Nutrition Support pureed, CCHO 60gm Pertinent Medications novolov, levemir, glucophage Pertinent Labs 11/03- POC 181-316 Nutritional Hx/Data Height 1.8 m Height (Calculated Centimeters) 180.3 Current Weight (lbs) 77.111 kg Weight (Calculated Kilograms) 77.1 Weight (Calculated Grams) 14333.7 [place] Body Weight 172 Body Mass Index (BMI) 23.7 Weight Status Approriate GI Symptoms GI Symptoms None Last BM 11/03 Difficult in: None Skin Integrity/Comment: pressure ulcer, decubitus Current %PO Fair (50-74%) Estimated Nutritional Goals BEE in Kcals: Using Current wt Calories/Kcals/Kg 25-30 Kcals Calculated 3127-6909 Protein: Using Current wt Protein g/k-1.2 Protein Calculated 77-92 Fluid: ml 1925-2310ml (1ml/kcal) Nutritional Problem 1. Problem Problem altered nutrition related lab values Etiology hx of DM Signs/Symptoms: glucose 169, POC 181-316 Malnutrition Alert Protein-Calorie Malnutrition N/A Is there a minimum of two criteria No selected? Query Text:Check all the applicable criteria. A minimum of two criteria are recommended for diagnosis of either severe or non-severe malnutrition. Intervention/Recommendation Comments 1. Continue with current diet as ordered. 2. Monitor PO intake, wt, labs and skin integrity 3. F/U as moderate risk in 3-5 days, 11/08-11/10 Expected Outcomes/Goals Expected Outcomes/Goals 1. PO intake to meet at least 75% of nutritional needs. 2. Wt stability, skin to remain intact, labs to approach WNL.
--- NOTE | 2017-11-10 21:44 | Progress Notes ---
DATE: 11/10/2017 Case was discussed with staff of the patient. The patient continues to be irritable, easily agitated, restless. However, he is easier to redirect. He is compliant with the medication. Dr. Rainey increased Zyprexa 10 mg twice a day with no side effects, no sedation, no nausea, no extrapyramidal symptoms. He is also on Aricept 5 mg at bedtime. Thank you very much for allowing me to participate in the care of this most interesting gentleman.. JOB# [id number]
--- NOTE | 2017-11-10 23:41 | Infectious Disease Prog Note ---
Infectious Disease Subjective - Review of Systems Service Date: 11/10/17 Subjective: No fever Infectious Disease Objective - Results Result Diagrams: 11/09/17 05:00 Recent Labs: Laboratory Last Values PT 9.5 SECONDS (9.5-11.5) 11/05/17 21:35 INR 0.91 (0.5-1.4) 11/05/17 21:35 Sodium 134 mEq/L (136-145) L 11/09/17 05:00 Potassium 4.4 mEq/L (3.5-5.1) 11/09/17 05:00 Chloride 99 mEq/L (98-107) 11/09/17 05:00 Carbon Dioxide 25.3 mEq/L (21.0-31.0) 11/09/17 05:00 Anion Gap 14.1 (7.0-16.0) 11/09/17 05:00 BUN 9 mg/dL (7-25) 11/09/17 05:00 Creatinine 0.9 mg/dL (0.7-1.3) 11/09/17 05:00 Est GFR ( Amer) TNP 11/09/17 05:00 Est GFR (Non-Af Amer) TNP 11/09/17 05:00 BUN/Creatinine Ratio 10.0 11/09/17 05:00 Glucose 240 mg/dL (70-105) H 11/09/17 05:00 POC Glucose 149 MG/DL (70 - 105) H 11/10/17 16:25 Calcium 9.3 mg/dL (8.6-10.3) 11/09/17 05:00 Vancomycin Trough 13.4 ug/mL (10-20) 11/10/17 13:30 - Physical Exam Vitals and I&O: Vital Signs Temp 97.6 F 11/10/17 20:00 Pulse 77 11/10/17 20:00 Resp 16 11/10/17 20:00 BP 110/50 11/10/17 20:00 Pulse Ox 96 11/10/17 20:00 Intake & Output 11/10/17 11/10/17 11/11/17 06:59 18:59 06:59 Intake Total 1000 650 Output Total 750 450 Balance 250 200 Weight (lbs) 77.111 kg 77.111 kg Intake: Intake, IV Amount 500 Vancomycin HCl 1 gm In 500 Dextrose 5% 250 ml @ 165 mls/hr IV Q12H [facility] Rx#: [id number] Oral 500 650 Output: Urine 750 450 Other: # Bowel Movements 1 Weight Source Bedscale Bedscale Active Medications: Current Medications Acetaminophen (Tylenol) 650 mg PO Q6H PRN PRN Reason: mild to moderate pain Stop: 12/30/17 23:24 Acetaminophen/Hydrocodone Bitart ([place] 5mg/325mg) 1 tab PO Q6H PRN PRN Reason: Pain (Moderate) Stop: 12/30/17 23:24 Allopurinol (Zyloprim) 100 mg PO DAILY [facility] Stop: 12/30/17 23:24 Last Admin: 11/10/17 08:25 Dose: 100 mg [place] Oil/[place] Balsam/Trypsin (Venelex) 1 appl TP DAILY [facility] Stop: 12/30/17 23:24 Last Admin: 11/10/17 08:26 Dose: 1 appl Clonazepam (Klonopin) 1 mg PO BID [facility] PRN Reason: Protocol Stop: 12/31/17 09:59 Last Admin: 11/10/17 17:00 Dose: Not Given Donepezil HCl (Aricept) 5 mg PO DAILY [facility] Stop: 01/04/18 08:59 Last Admin: 11/10/17 08:26 Dose: 5 mg Famotidine (Pepcid) 20 mg PO BID [facility] Stop: 12/30/17 23:24 Last Admin: 11/10/17 17:00 Dose: Not Given Fluconazole (Diflucan) 100 mg PO DAILY [facility] Stop: 12/30/17 23:24 Last Admin: 11/10/17 08:25 Dose: 100 mg Heparin Sodium (Porcine) (Heparin) 5,000 units SUBQ Q12HR [facility] PRN Reason: Protocol Stop: 12/30/17 23:24 Last Admin: 11/10/17 21:13 Dose: Not Given Vancomycin HCl 1 gm/ Dextrose 250 mls @ 165 mls/hr IV Q12H [facility] Stop: 01/08/18 13:59 Last Admin: 11/10/17 14:25 Dose: 165 mls/hr Insulin Aspart (Novolog Insulin Sliding Scale) 0 units SUBQ ACHS [facility] PRN Reason: Protocol Stop: 12/31/17 07:29 Last Admin: 11/10/17 21:13 Dose: Not Given Insulin Detemir (Levemir Insulin) 18 units SUBQ DAILY [facility] PRN Reason: Protocol Stop: 12/30/17 23:24 Last Admin: 11/10/17 08:28 Dose: 18 units Magnesium Hydroxide (Milk Of Magnesia) 30 ml PO HS PRN PRN Reason: Constipation Stop: 12/30/17 23:24 Metformin HCl (Glucophage) 1,000 mg PO DAILY [facility] Stop: 12/31/17 09:59 Last Admin: 11/10/17 08:25 Dose: 1,000 mg Metoprolol Succinate (Toprol Xl) 25 mg PO DAILY [facility] Stop: 12/30/17 23:24 Last Admin: 11/10/17 08:26 Dose: 25 mg Miscellaneous (Vte Chemical Prophylaxis Screen/ Admission) 1 ea PRN PRN PRN Reason: PROTOCOL Stop: 12/31/17 10:29 Miscellaneous (Vancomycin Iv Per Pharmacy) 1 [facility] PRN PRN PRN Reason: PROTOCOL Stop: 01/07/18 16:10 Olanzapine (Zyprexa Zydis) 10 mg PO BID [facility] PRN Reason: Protocol Stop: 01/05/18 07:53 Last Admin: 11/10/17 17:00 Dose: Not Given Zolpidem Tartrate (Ambien) 5 mg PO HS PRN PRN Reason: insomnia Stop: 12/30/17 23:24 Last Admin: 11/03/17 19:55 Dose: 5 mg General: no acute distress, well developed, well nourished HEENT: atraumatic, normocephalic, PERRLA, EOMI, moist mucous membrane Neck: supple, no thyromegaly Cardiovascular: S1S2, regular Lungs: clear to auscultation bilaterally, clear to percussion Abdomen: soft, no tender, no distended Extremities: no cyanosis, no clubbing, no edema Neurological: awake, alert, oriented Skin: intact - Procedures Procedures: Procedures Procedure Code Date JEWEL MUSC/FASCIA 20 SQ CM/< 78165 10/12/17 EXCISION OF RIGHT HIP MUSCLE, OPEN APPROACH [id number] 10/12/17 INTRODUCTION OF SERUM/TOX/VACCINE INTO MUSCLE, PERC APPROACH [id number] 10/12/17 Infectious Disease Assmt/Plan - Assessment Assessment: 1. Sacral decubitus ulcer. 2. UTI. Treated 3. Dementia. - Plan Plan: wound care. Nutritional Asmnt/Malnutr-PDOC - Dietary Evaluation Malnutrition Findings (Please click <Entered> for more info): Nutritional Asmnt/Malnutrition Start: 11/05/17 16: 25 Text: Status: Complete Freq: Document 11/05/17 16:25 KEVINHEATHER (Rec: 11/05/17 16:31 GRYE [email or web address]) Nutritional Asmnt/Malnutrition Patient General Information Nutritional Screening Moderate Risk Diagnosis dehydration Pertinent Medical Hx/Surgical Hx DM, dementia, depression, psychosis, schizophrenia, chronic renal insuff Subjective Information Pt is agitated, on 1:1 sitter. Per EMR, PO intake 25-75%, avg 50%. Current Diet Order/ Nutrition Support pureed, CCHO 60gm Pertinent Medications novolov, levemir, glucophage Pertinent Labs POC 181-316 Nutritional Hx/Data Height 1.8 m Height (Calculated Centimeters) 180.3 Current Weight (lbs) 77.111 kg Weight (Calculated Kilograms) 77.1 Weight (Calculated Grams) 20193.7 [place] Body Weight 172 Body Mass Index (BMI) 23.7 Weight Status Approriate GI Symptoms GI Symptoms None Last BM 11/03 Difficult in: None Skin Integrity/Comment: pressure ulcer, decubitus Current %PO Fair (50-74%) Estimated Nutritional Goals BEE in Kcals: Using Current wt Calories/Kcals/Kg 25-30 Kcals Calculated 6555-4349 Protein: Using Current wt Protein g/k-1.2 Protein Calculated 77-92 Fluid: ml 1925-2310ml (1ml/kcal) Nutritional Problem 1. Problem Problem altered nutrition related lab values Etiology hx of DM Signs/Symptoms: glucose 169, POC 181-316 Malnutrition Alert Protein-Calorie Malnutrition N/A Is there a minimum of two criteria No selected? Query Text:Check all the applicable criteria. A minimum of two criteria are recommended for diagnosis of either severe or non-severe malnutrition. Intervention/Recommendation Comments 1. Continue with current diet as ordered. 2. Monitor PO intake, wt, labs and skin integrity 3. F/U as moderate risk in 3-5 days, 11/08-11/10 Expected Outcomes/Goals Expected Outcomes/Goals 1. PO intake to meet at least 75% of nutritional needs. 2. Wt stability, skin to remain intact, labs to approach WNL.
--- NOTE | 2017-11-11 08:31 | General Progress Note ---
Subjective - Review of Systems Service Date: 11/11/17 Subjective: Patient resting comfortably in bed. no acute distress. In good spirits today. pleasant. cooperative today. eating well Objective - Results Result Diagrams: 11/09/17 05:00 Recent Labs: Laboratory Last Values PT 9.5 SECONDS (9.5-11.5) 11/05/17 21:35 INR 0.91 (0.5-1.4) 11/05/17 21:35 Sodium 134 mEq/L (136-145) L 11/09/17 05:00 Potassium 4.4 mEq/L (3.5-5.1) 11/09/17 05:00 Chloride 99 mEq/L (98-107) 11/09/17 05:00 Carbon Dioxide 25.3 mEq/L (21.0-31.0) 11/09/17 05:00 Anion Gap 14.1 (7.0-16.0) 11/09/17 05:00 BUN 9 mg/dL (7-25) 11/09/17 05:00 Creatinine 0.9 mg/dL (0.7-1.3) 11/09/17 05:00 Est GFR ( Amer) TNP 11/09/17 05:00 Est GFR (Non-Af Amer) TNP 11/09/17 05:00 BUN/Creatinine Ratio 10.0 11/09/17 05:00 Glucose 240 mg/dL (70-105) H 11/09/17 05:00 POC Glucose 149 MG/DL (70 - 105) H 11/10/17 16:25 Calcium 9.3 mg/dL (8.6-10.3) 11/09/17 05:00 Vancomycin Trough 13.4 ug/mL (10-20) 11/10/17 13:30 - Physical Exam Vitals and I&O: Vital Signs Temp 97.7 F 11/11/17 04:00 Pulse 73 11/11/17 04:00 Resp 18 11/11/17 04:00 BP 148/69 11/11/17 04:00 Pulse Ox 98 11/11/17 04:00 Intake & Output 11/10/17 11/11/17 11/11/17 18:59 06:59 18:59 Intake Total 900 Output Total 450 Balance 450 Weight (lbs) 77.111 kg Intake: Intake, IV Amount 250 Vancomycin HCl 1 gm In 250 Dextrose 5% 250 ml @ 165 mls/hr IV Q12H [facility] Rx#: [id number] Oral 650 Output: Urine 450 Other: # Bowel Movements 1 Weight Source Bedscale Active Medications: Current Medications Acetaminophen (Tylenol) 650 mg PO Q6H PRN PRN Reason: mild to moderate pain Stop: 12/30/17 23:24 Acetaminophen/Hydrocodone Bitart ([place] 5mg/325mg) 1 tab PO Q6H PRN PRN Reason: Pain (Moderate) Stop: 12/30/17 23:24 Allopurinol (Zyloprim) 100 mg PO DAILY [facility] Stop: 12/30/17 23:24 Last Admin: 11/10/17 08:25 Dose: 100 mg [place] Oil/[place] Balsam/Trypsin (Venelex) 1 appl TP DAILY [facility] Stop: 12/30/17 23:24 Last Admin: 11/10/17 08:26 Dose: 1 appl Clonazepam (Klonopin) 1 mg PO BID [facility] PRN Reason: Protocol Stop: 12/31/17 09:59 Last Admin: 11/10/17 17:00 Dose: Not Given Donepezil HCl (Aricept) 5 mg PO DAILY [facility] Stop: 01/04/18 08:59 Last Admin: 11/10/17 08:26 Dose: 5 mg Famotidine (Pepcid) 20 mg PO BID [facility] Stop: 12/30/17 23:24 Last Admin: 11/10/17 17:00 Dose: Not Given Fluconazole (Diflucan) 100 mg PO DAILY [facility] Stop: 12/30/17 23:24 Last Admin: 11/10/17 08:25 Dose: 100 mg Heparin Sodium (Porcine) (Heparin) 5,000 units SUBQ Q12HR [facility] PRN Reason: Protocol Stop: 12/30/17 23:24 Last Admin: 11/10/17 21:13 Dose: Not Given Vancomycin HCl 1 gm/ Dextrose 250 mls @ 165 mls/hr IV Q12H [facility] Stop: 01/08/18 13:59 Last Admin: 11/11/17 01:50 Dose: 165 mls/hr Insulin Aspart (Novolog Insulin Sliding Scale) 0 units SUBQ ACHS [facility] PRN Reason: Protocol Stop: 12/31/17 07:29 Last Admin: 11/10/17 21:13 Dose: Not Given Insulin Detemir (Levemir Insulin) 18 units SUBQ DAILY [facility] PRN Reason: Protocol Stop: 12/30/17 23:24 Last Admin: 11/10/17 08:28 Dose: 18 units Magnesium Hydroxide (Milk Of Magnesia) 30 ml PO HS PRN PRN Reason: Constipation Stop: 12/30/17 23:24 Metformin HCl (Glucophage) 1,000 mg PO DAILY [facility] Stop: 12/31/17 09:59 Last Admin: 11/10/17 08:25 Dose: 1,000 mg Metoprolol Succinate (Toprol Xl) 25 mg PO DAILY [facility] Stop: 12/30/17 23:24 Last Admin: 11/10/17 08:26 Dose: 25 mg Miscellaneous (Vte Chemical Prophylaxis Screen/ Admission) 1 ea PRN PRN PRN Reason: PROTOCOL Stop: 12/31/17 10:29 Miscellaneous (Vancomycin Iv Per Pharmacy) 1 [facility] PRN PRN PRN Reason: PROTOCOL Stop: 01/07/18 16:10 Olanzapine (Zyprexa Zydis) 10 mg PO BID [facility] PRN Reason: Protocol Stop: 01/05/18 07:53 Last Admin: 11/10/17 17:00 Dose: Not Given Zolpidem Tartrate (Ambien) 5 mg PO HS PRN PRN Reason: insomnia Stop: 12/30/17 23:24 Last Admin: 11/03/17 19:55 Dose: 5 mg General: Alert, No acute distress HEENT: Atraumatic, PERRLA, EOMI Neck: Supple, JVD, +2 carotid pulse wo bruit Cardiovascular: Regular rate, Normal S1, Normal S2 Lungs: Clear to auscultation Abdomen: Bowel sounds, Soft Extremities: no Clubbing, no Cyanosis, no Edema Neurological: Sensation intact Skin: no Rash Psych/Mental Status: Other (psychosis) - Procedures Procedures: Procedures Procedure Code Date JEWEL MUSC/FASCIA 20 SQ CM/< 47404 10/12/17 EXCISION OF RIGHT HIP MUSCLE, OPEN APPROACH [id number] 10/12/17 INTRODUCTION OF SERUM/TOX/VACCINE INTO MUSCLE, PERC APPROACH [id number] 10/12/17 Assessment/Plan - Assessment Assessment: psychosis dementia Alzheimer's dementia diabetes mellitus not controlled. s/p wound debridement of sacral decubiti UTI hyperglycemia - Plan Plan: continue current medications. for possible discharge today Nutritional Asmnt/Malnutr-PDOC - Dietary Evaluation Malnutrition Findings (Please click <Entered> for more info): Nutritional Asmnt/Malnutrition Start: 11/05/17 16: 25 Text: Status: Complete Freq: Document 11/05/17 16:25 GREY (Rec: 11/05/17 16:31 LCDEMIG [email or web address]) Nutritional Asmnt/Malnutrition Patient General Information Nutritional Screening Moderate Risk Diagnosis dehydration Pertinent Medical Hx/Surgical Hx DM, dementia, depression, psychosis, schizophrenia, chronic renal insuff Subjective Information Pt is agitated, on 1:1 sitter. Per EMR, PO intake 25-75%, avg 50%. Current Diet Order/ Nutrition Support pureed, CCHO 60gm Pertinent Medications novolov, levemir, glucophage Pertinent Labs 11/03- POC 181-316 Nutritional Hx/Data Height 1.8 m Height (Calculated Centimeters) 180.3 Current Weight (lbs) 77.111 kg Weight (Calculated Kilograms) 77.1 Weight (Calculated Grams) 84314.7 [place] Body Weight 172 Body Mass Index (BMI) 23.7 Weight Status Approriate GI Symptoms GI Symptoms None Last BM 11/03 Difficult in: None Skin Integrity/Comment: pressure ulcer, decubitus Current %PO Fair (50-74%) Estimated Nutritional Goals BEE in Kcals: Using Current wt Calories/Kcals/Kg 25-30 Kcals Calculated 6300-8334 Protein: Using Current wt Protein g/k-1.2 Protein Calculated 77-92 Fluid: ml 1925-2310ml (1ml/kcal) Nutritional Problem 1. Problem Problem altered nutrition related lab values Etiology hx of DM Signs/Symptoms: glucose 169, POC 181-316 Malnutrition Alert Protein-Calorie Malnutrition N/A Is there a minimum of two criteria No selected? Query Text:Check all the applicable criteria. A minimum of two criteria are recommended for diagnosis of either severe or non-severe malnutrition. Intervention/Recommendation Comments 1. Continue with current diet as ordered. 2. Monitor PO intake, wt, labs and skin integrity 3. F/U as moderate risk in 3-5 days, 11/08-11/10 Expected Outcomes/Goals Expected Outcomes/Goals 1. PO intake to meet at least 75% of nutritional needs. 2. Wt stability, skin to remain intact, labs to approach WNL.
[2017-11-11] MEDS: OLANZapine 5 mg Oral Disintegrating Tab PO SCH ×2 (08:55→16:56)
[2017-11-11] MEDS: Venelex 60gm Tube TP SCH (08:56)
[2017-11-11] MEDS: Insulin Detemir 100 units/mL 10mL Vial SUBQ SCH (08:57)
[2017-11-11] MEDS: INSULIN ASPART SLIDING SCALE 100 UNITS/ML UNIT SUBQ SCH ×6 (08:57→21:57)
--- NOTE | 2017-11-11 14:28 | General Progress Note ---
Subjective - Review of Systems Service Date: 11/11/17 Subjective: lying in bed, more friendly Objective - Results Result Diagrams: 11/09/17 05:00 Recent Labs: Laboratory Last Values PT 9.5 SECONDS (9.5-11.5) 11/05/17 21:35 INR 0.91 (0.5-1.4) 11/05/17 21:35 Sodium 134 mEq/L (136-145) L 11/09/17 05:00 Potassium 4.4 mEq/L (3.5-5.1) 11/09/17 05:00 Chloride 99 mEq/L (98-107) 11/09/17 05:00 Carbon Dioxide 25.3 mEq/L (21.0-31.0) 11/09/17 05:00 Anion Gap 14.1 (7.0-16.0) 11/09/17 05:00 BUN 9 mg/dL (7-25) 11/09/17 05:00 Creatinine 0.9 mg/dL (0.7-1.3) 11/09/17 05:00 Est GFR ( Amer) TNP 11/09/17 05:00 Est GFR (Non-Af Amer) TNP 11/09/17 05:00 BUN/Creatinine Ratio 10.0 11/09/17 05:00 Glucose 240 mg/dL (70-105) H 11/09/17 05:00 POC Glucose 149 MG/DL (70 - 105) H 11/10/17 16:25 Calcium 9.3 mg/dL (8.6-10.3) 11/09/17 05:00 Vancomycin Trough 13.4 ug/mL (10-20) 11/10/17 13:30 - Physical Exam Vitals and I&O: Vital Signs Temp 97.4 F 11/11/17 08:00 Pulse 106 11/11/17 09:05 Resp 18 11/11/17 08:00 BP 122/97 11/11/17 09:05 Pulse Ox 98 11/11/17 08:00 Intake & Output 11/10/17 11/11/17 11/11/17 18:59 06:59 18:59 Intake Total 900 Output Total 450 Balance 450 Weight (lbs) 77.111 kg Intake: Intake, IV Amount 250 Vancomycin HCl 1 gm In 250 Dextrose 5% 250 ml @ 165 mls/hr IV Q12H [facility] Rx#: [id number] Oral 650 Output: Urine 450 Other: # Bowel Movements 1 Weight Source Bedscale Active Medications: Current Medications Acetaminophen (Tylenol) 650 mg PO Q6H PRN PRN Reason: mild to moderate pain Stop: 12/30/17 23:24 Acetaminophen/Hydrocodone Bitart ([place] 5mg/325mg) 1 tab PO Q6H PRN PRN Reason: Pain (Moderate) Stop: 12/30/17 23:24 Allopurinol (Zyloprim) 100 mg PO DAILY [facility] Stop: 12/30/17 23:24 Last Admin: 11/11/17 08:54 Dose: 100 mg [place] Oil/Micronesian Balsam/Trypsin (Venelex) 1 appl TP DAILY [facility] Stop: 12/30/17 23:24 Last Admin: 11/11/17 08:56 Dose: 1 appl Clonazepam (Klonopin) 1 mg PO BID [facility] PRN Reason: Protocol Stop: 12/31/17 09:59 Last Admin: 11/11/17 08:54 Dose: 1 mg Donepezil HCl (Aricept) 5 mg PO DAILY [facility] Stop: 01/04/18 08:59 Last Admin: 11/11/17 08:55 Dose: 5 mg Famotidine (Pepcid) 20 mg PO BID [facility] Stop: 12/30/17 23:24 Last Admin: 11/11/17 08:55 Dose: 20 mg Fluconazole (Diflucan) 100 mg PO DAILY [facility] Stop: 12/30/17 23:24 Last Admin: 11/11/17 08:54 Dose: 100 mg Heparin Sodium (Porcine) (Heparin) 5,000 units SUBQ Q12HR [facility] PRN Reason: Protocol Stop: 12/30/17 23:24 Last Admin: 11/11/17 08:57 Dose: Not Given Vancomycin HCl 1 gm/ Sodium (Chloride) 250 mls @ 165 mls/hr IV Q12H [facility] Stop: 01/10/18 13:59 Last Admin: 11/11/17 14:03 Dose: 165 mls/hr Insulin Aspart (Novolog Insulin Sliding Scale) 0 units SUBQ ACHS [facility] PRN Reason: Protocol Stop: 12/31/17 07:29 Last Admin: 11/11/17 14:06 Dose: Not Given Insulin Detemir (Levemir Insulin) 18 units SUBQ DAILY [facility] PRN Reason: Protocol Stop: 12/30/17 23:24 Last Admin: 11/11/17 08:57 Dose: Not Given Magnesium Hydroxide (Milk Of Magnesia) 30 ml PO HS PRN PRN Reason: Constipation Stop: 12/30/17 23:24 Metformin HCl (Glucophage) 1,000 mg PO DAILY [facility] Stop: 12/31/17 09:59 Last Admin: 11/11/17 09:06 Dose: 1,000 mg Metoprolol Succinate (Toprol Xl) 25 mg PO DAILY [facility] Stop: 12/30/17 23:24 Last Admin: 11/11/17 09:05 Dose: 25 mg Miscellaneous (Vte Chemical Prophylaxis Screen/ Admission) 1 ea PRN PRN PRN Reason: PROTOCOL Stop: 12/31/17 10:29 Miscellaneous (Vancomycin Iv Per Pharmacy) 1 ea PRN PRN PRN Reason: PROTOCOL Stop: 01/07/18 16:10 Olanzapine (Zyprexa Zydis) 10 mg PO BID [facility] PRN Reason: Protocol Stop: 01/05/18 07:53 Last Admin: 11/11/17 08:55 Dose: 10 mg Zolpidem Tartrate (Ambien) 5 mg PO HS PRN PRN Reason: insomnia Stop: 12/30/17 23:24 Last Admin: 11/03/17 19:55 Dose: 5 mg General: Alert, No acute distress HEENT: Atraumatic, PERRLA, EOMI Neck: Supple, JVD, +2 carotid pulse wo bruit Cardiovascular: Regular rate, Normal S1, Normal S2 Lungs: Clear to auscultation Abdomen: Bowel sounds, Soft Extremities: no Clubbing, no Cyanosis, no Edema Neurological: Sensation intact Skin: no Rash Psych/Mental Status: Other (psychosis) - Procedures Procedures: Procedures Procedure Code Date JEWEL MUSC/FASCIA 20 SQ CM/< 46701 10/12/17 EXCISION OF RIGHT HIP MUSCLE, OPEN APPROACH [id number] 10/12/17 INTRODUCTION OF SERUM/TOX/VACCINE INTO MUSCLE, PERC APPROACH [id number] 10/12/17 Assessment/Plan - Assessment Assessment: S/P KEN S/P electrolyte imbalance Acute decomp of Psychosis Type 2 DM MRSA, Yeast UTI - Plan Plan: Lab - Result Diagrams 11/01/17 06:48 Current Medications Acetaminophen (Tylenol) 650 mg PO Q6H PRN PRN Reason: mild to moderate pain Stop: 12/30/17 23:24 Acetaminophen/Hydrocodone Bitart ([place] 5mg/325mg) 1 tab PO Q6H PRN PRN Reason: Pain (Moderate) Stop: 12/30/17 23:24 Allopurinol (Zyloprim) 100 mg PO DAILY [facility] Stop: 12/30/17 23:24 Last Admin: 11/01/17 10:54 Dose: 100 mg [place] Oil/[place]ron[place] Balsam/Trypsin (Venelex) 1 appl TP DAILY [facility] Stop: 12/30/17 23:24 Last Admin: 11/01/17 11:02 Dose: 1 appl Clonazepam (Klonopin) 1 mg PO BID [facility] PRN Reason: Protocol Stop: 12/31/17 09:59 Famotidine (Pepcid) 20 mg PO BID [facility] Stop: 12/30/17 23:24 Last Admin: 11/01/17 10:54 Dose: 20 mg Fluconazole (Diflucan) 100 mg PO DAILY [facility] Stop: 12/30/17 23:24 Last Admin: 11/01/17 11:02 Dose: 100 mg Heparin Sodium (Porcine) (Heparin) 5,000 units SUBQ Q12HR [facility] PRN Reason: Protocol Stop: 12/30/17 23:24 Last Admin: 11/01/17 10:59 Dose: 5,000 units Levofloxacin (Levaquin Pb) 500 mg in 100 mls @ 100 mls/hr IV Q24H [facility] Stop: 12/31/17 11:59 Insulin Aspart (Novolog Insulin Sliding Scale) 0 units SUBQ ACHS [facility] PRN Reason: Protocol Stop: 12/30/17 23:24 Last Admin: 11/01/17 10:45 Dose: 2 units Insulin Aspart (Novolog Insulin Sliding Scale) 0 units SUBQ ACHS [facility] PRN Reason: Protocol Stop: 12/31/17 07:29 Insulin Detemir (Levemir Insulin) 18 units SUBQ DAILY [facility] PRN Reason: Protocol Stop: 12/30/17 23:24 Last Admin: 11/01/17 10:56 Dose: 18 units Lorazepam (Ativan) 0.5 mg PO Q6HR PRN; Protocol PRN Reason: agitation Stop: 12/30/17 23:24 Magnesium Hydroxide (Milk Of Magnesia) 30 ml PO HS PRN PRN Reason: Constipation Stop: 12/30/17 23:24 Metformin HCl (Glucophage) 1,000 mg PO DAILY [facility] Stop: 12/31/17 09:59 Metoprolol Succinate (Toprol Xl) 25 mg PO DAILY [facility] Stop: 12/30/17 23:24 Last Admin: 11/01/17 10:55 Dose: 25 mg Miscellaneous (Vte Chemical Prophylaxis Screen/ Admission) 1 ea MC PRN PRN PRN Reason: PROTOCOL Stop: 12/31/17 10:29 Olanzapine (Zyprexa Zydis) 5 mg PO DAILY [facility] PRN Reason: Protocol Stop: 12/31/17 09:59 Zolpidem Tartrate (Ambien) 5 mg PO HS PRN PRN Reason: insomnia Stop: 12/30/17 23:24 Lab - Result Diagrams 11/09/17 05:00 kidney fnc remain stable encourage po intake psych meds start Vanco W/ Diflucan Nutritional Asmnt/Malnutr-PDOC - Dietary Evaluation Malnutrition Findings (Please click <Entered> for more info): Nutritional Asmnt/Malnutrition Start: 11/05/17 16: 25 Text: Status: Complete Freq: Document 11/05/17 16:25 LCHENG (Rec: 11/05/17 16:31 LCDEMIG [email or web address]) Nutritional Asmnt/Malnutrition Patient General Information Nutritional Screening Moderate Risk Diagnosis dehydration Pertinent Medical Hx/Surgical Hx DM, dementia, depression, psychosis, schizophrenia, chronic renal insuff Subjective Information Pt is agitated, on 1:1 sitter. Per EMR, PO intake 25-75%, avg 50%. Current Diet Order/ Nutrition Support pureed, CCHO 60gm Pertinent Medications novolov, levemir, glucophage Pertinent Labs 11/03- POC 181-316 Nutritional Hx/Data Height 1.8 m Height (Calculated Centimeters) 180.3 Current Weight (lbs) 77.111 kg Weight (Calculated Kilograms) 77.1 Weight (Calculated Grams) 52490.7 [place] Body Weight 172 Body Mass Index (BMI) 23.7 Weight Status Approriate GI Symptoms GI Symptoms None Last BM 11/03 Difficult in: None Skin Integrity/Comment: pressure ulcer, decubitus Current %PO Fair (50-74%) Estimated Nutritional Goals BEE in Kcals: Using Current wt Calories/Kcals/Kg 25-30 Kcals Calculated 2727-1171 Protein: Using Current wt Protein g/k-1.2 Protein Calculated 77-92 Fluid: ml 1925-2310ml (1ml/kcal) Nutritional Problem 1. Problem Problem altered nutrition related lab values Etiology hx of DM Signs/Symptoms: glucose 169, POC 181-316 Malnutrition Alert Protein-Calorie Malnutrition N/A Is there a minimum of two criteria No selected? Query Text:Check all the applicable criteria. A minimum of two criteria are recommended for diagnosis of either severe or non-severe malnutrition. Intervention/Recommendation Comments 1. Continue with current diet as ordered. 2. Monitor PO intake, wt, labs and skin integrity 3. F/U as moderate risk in 3-5 days, 11/08-11/10 Expected Outcomes/Goals Expected Outcomes/Goals 1. PO intake to meet at least 75% of nutritional needs. 2. Wt stability, skin to remain intact, labs to approach WNL.
[2017-11-11] MEDS: Hydrocodone/APAP 5mg/325mg Tab PO PRN (16:56)
[2017-11-11 21:07] VITALS: BP 150/69
[2017-11-11 22:23] LABS: URINE MICROSCOPIC INDICATED? YES; URINE SOURCE FOLEY PORT
[2017-11-11 22:52] LABS: URINE BILIRUBIN NEGATIVE (NEGATIVE); URINE BLOOD LARGE (NEGATIVE); URINE GLUCOSE (UA) >=1000 mg/dL (NEGATIVE); URINE KETONE NEGATIVE (NEGATIVE); URINE LEUKOCYTE ESTERASE SMALL (NEGATIVE); URINE NITRATE NEGATIVE (NEGATIVE); URINE PH 5.5 (4.6 - 8.0); URINE PROTEIN NEGATIVE (NEGATIVE); URINE UROBILINOGEN 0.2 E.U./dL (0.2 - 1.0)
[2017-11-11 22:55] LABS: URINE CLARITY HAZY (CLEAR); URINE COLOR YELLOW
[2017-11-11 22:57] LABS: URINE BACTERIA FEW /hpf (NONE SEEN); URINE EPITHELIAL CELLS OCCASIONAL /lpf (FEW); URINE YEAST FEW /hpf (NONE SEEN)
--- NOTE | 2017-11-11 23:21 | Progress Notes ---
DATE: 11/11/2017 Case was discussed with staff of the patient. The patient continues to be irritable, continues to be hostile at times. Continues to be unpredictable, impulsive. He is compliant with the medication with no side effects, tolerating increase in Zyprexa. No sedation, no nausea, no extrapyramidal symptoms. His Zyprexa was increased to 10 mg twice a day and Aricept was initiated on 11/05/2017, it was too early to adjust that dose and no side effects with the medication, no sedation, no nausea. I will continue to work with the patient in group therapy, milieu therapy, and adjust medications as needed. JOB# [id number]
--- NOTE | 2017-11-12 08:26 | General Progress Note ---
Subjective - Review of Systems Service Date: 11/12/17 Subjective: Patient resting comfortably in bed. no acute distress. In good spirits today. pleasant. cooperative today. eating well Objective - Results Result Diagrams: 11/09/17 05:00 Recent Labs: Laboratory Last Values PT 9.5 SECONDS (9.5-11.5) 11/05/17 21:35 INR 0.91 (0.5-1.4) 11/05/17 21:35 Sodium 134 mEq/L (136-145) L 11/09/17 05:00 Potassium 4.4 mEq/L (3.5-5.1) 11/09/17 05:00 Chloride 99 mEq/L (98-107) 11/09/17 05:00 Carbon Dioxide 25.3 mEq/L (21.0-31.0) 11/09/17 05:00 Anion Gap 14.1 (7.0-16.0) 11/09/17 05:00 BUN 9 mg/dL (7-25) 11/09/17 05:00 Creatinine 0.9 mg/dL (0.7-1.3) 11/09/17 05:00 Est GFR ( Amer) TNP 11/09/17 05:00 Est GFR (Non-Af Amer) TNP 11/09/17 05:00 BUN/Creatinine Ratio 10.0 11/09/17 05:00 Glucose 240 mg/dL (70-105) H 11/09/17 05:00 POC Glucose 333 MG/DL (70 - 105) H 11/11/17 21:45 Calcium 9.3 mg/dL (8.6-10.3) 11/09/17 05:00 Urine Source [place] 11/11/17 21:30 Urine Color YELLOW 11/11/17 21:30 Urine Clarity HAZY (CLEAR) 11/11/17 21:30 Urine pH 5.5 (4.6 - 8.0) 11/11/17 21:30 Ur Specific [place] 1.010 (1.005-1.030) 11/11/17 21:30 Urine Protein NEGATIVE mg/dL (NEGATIVE) 11/11/17 21:30 Urine Glucose (UA) >=1000 mg/dL (NEGATIVE) H 11/11/17 21:30 Urine Ketones NEGATIVE mg/dL (NEGATIVE) 11/11/17 21:30 Urine Blood LARGE (NEGATIVE) H 11/11/17 21:30 Urine Nitrate NEGATIVE (NEGATIVE) 11/11/17 21:30 Urine Bilirubin NEGATIVE (NEGATIVE) 11/11/17 21:30 Urine Urobilinogen 0.2 E.U./dL (0.2 - 1.0) 11/11/17 21:30 Ur Leukocyte Esterase SMALL (NEGATIVE) H 11/11/17 21:30 Urine RBC 10-25 /hpf (0-5) H 11/11/17 21:30 Urine WBC 2-5 /hpf (0-5) 11/11/17 21:30 Ur Epithelial Cells OCCASIONAL /lpf (FEW) 11/11/17 21:30 Urine Bacteria FEW /hpf (NONE SEEN) 11/11/17 21:30 Urine Yeast FEW /hpf (NONE SEEN) H 11/11/17 21:30 Vancomycin Trough 13.4 ug/mL (10-20) 11/10/17 13:30 - Physical Exam Vitals and I&O: Vital Signs Temp 98 F 11/12/17 04:00 Pulse 88 11/12/17 04:00 Resp 18 11/12/17 04:00 BP 112/80 11/12/17 04:00 Pulse Ox 96 11/12/17 04:00 Intake & Output 11/11/17 11/12/17 11/12/17 18:59 06:59 18:59 Intake Total 750 100 Output Total 900 1150 Balance -150 -1050 Weight (lbs) 77.111 kg 77.111 kg Intake: Intake, IV Amount 250 Vancomycin HCl 1 gm In 250 Sodium Chloride 0.9% 250 ml @ 165 mls/hr IV Q12H [facility] Rx#:[id number] Oral 500 100 Output: Urine 900 1150 Other: # Bowel Movements 0 Stool Characteristics Soft Formed Weight Source Bedscale Bedscale Active Medications: Current Medications Acetaminophen (Tylenol) 650 mg PO Q6H PRN PRN Reason: mild to moderate pain Stop: 12/30/17 23:24 Acetaminophen/Hydrocodone Bitart ([place] 5mg/325mg) 1 tab PO Q6H PRN PRN Reason: Pain (Moderate) Stop: 12/30/17 23:24 Last Admin: 11/11/17 16:56 Dose: 1 tab Allopurinol (Zyloprim) 100 mg PO DAILY [facility] Stop: 12/30/17 23:24 Last Admin: 11/11/17 08:54 Dose: 100 mg [place] Oil/[place] Balsam/Trypsin (Venelex) 1 appl TP DAILY [facility] Stop: 12/30/17 23:24 Last Admin: 11/11/17 08:56 Dose: 1 appl Clonazepam (Klonopin) 1 mg PO BID [facility] PRN Reason: Protocol Stop: 12/31/17 09:59 Last Admin: 11/11/17 16:57 Dose: 1 mg Donepezil HCl (Aricept) 5 mg PO DAILY [facility] Stop: 01/04/18 08:59 Last Admin: 11/11/17 08:55 Dose: 5 mg Doxycycline Hyclate (Vibramycin) 100 mg PO Q12HR [facility] Stop: 01/11/18 08:59 Famotidine (Pepcid) 20 mg PO BID [facility] Stop: 12/30/17 23:24 Last Admin: 11/11/17 16:56 Dose: 20 mg Fluconazole (Diflucan) 100 mg PO DAILY [facility] Stop: 12/30/17 23:24 Last Admin: 11/11/17 08:54 Dose: 100 mg Heparin Sodium (Porcine) (Heparin) 5,000 units SUBQ Q12HR [facility] PRN Reason: Protocol Stop: 12/30/17 23:24 Last Admin: 11/11/17 21:41 Dose: 5,000 units Vancomycin HCl 1 gm/ Sodium (Chloride) 250 mls @ 165 mls/hr IV Q12H [facility] Stop: 01/10/18 13:59 Last Admin: 11/12/17 03:33 Dose: 165 mls/hr Insulin Aspart (Novolog Insulin Sliding Scale) 0 units SUBQ ACHS [facility] PRN Reason: Protocol Stop: 12/31/17 07:29 Last Admin: 11/11/17 21:57 Dose: 8 units Insulin Detemir (Levemir Insulin) 18 units SUBQ DAILY [facility] PRN Reason: Protocol Stop: 12/30/17 23:24 Last Admin: 11/11/17 08:57 Dose: Not Given Magnesium Hydroxide (Milk Of Magnesia) 30 ml PO PRN PRN Reason: Constipation Stop: 12/30/17 23:24 Metformin HCl (Glucophage) 1,000 mg PO DAILY [facility] Stop: 12/31/17 09:59 Last Admin: 11/11/17 09:06 Dose: 1,000 mg Metoprolol Succinate (Toprol Xl) 25 mg PO DAILY [facility] Stop: 12/30/17 23:24 Last Admin: 11/11/17 09:05 Dose: 25 mg Miscellaneous (Vte Chemical Prophylaxis Screen/ Admission) 1 ea PRN PRN PRN Reason: PROTOCOL Stop: 12/31/17 10:29 Miscellaneous (Vancomycin Iv Per Pharmacy) 1 ea PRN PRN PRN Reason: PROTOCOL Stop: 01/07/18 16:10 Olanzapine (Zyprexa Zydis) 10 mg PO BID [facility] PRN Reason: Protocol Stop: 01/05/18 07:53 Last Admin: 11/11/17 16:56 Dose: 10 mg Zolpidem Tartrate (Ambien) 5 mg PO HS PRN PRN Reason: insomnia Stop: 12/30/17 23:24 Last Admin: 11/03/17 19:55 Dose: 5 mg General: Alert, No acute distress HEENT: Atraumatic, PERRLA, EOMI Neck: Supple, JVD, +2 carotid pulse wo bruit Cardiovascular: Regular rate, Normal S1, Normal S2 Lungs: Clear to auscultation Abdomen: Bowel sounds, Soft Extremities: no Clubbing, no Cyanosis, no Edema Neurological: Sensation intact Skin: no Rash Psych/Mental Status: Other (psychosis) - Procedures Procedures: Procedures Procedure Code Date JEWEL MUSC/FASCIA 20 SQ CM/< 52337 10/12/17 EXCISION OF RIGHT HIP MUSCLE, OPEN APPROACH [id number] 10/12/17 INTRODUCTION OF SERUM/TOX/VACCINE INTO MUSCLE, PERC APPROACH [id number] 10/12/17 Assessment/Plan - Assessment Assessment: psychosis dementia Alzheimer's dementia diabetes mellitus not controlled. s/p wound debridement of sacral decubiti UTI hyperglycemia - Plan Plan: continue current medications. will add doxycyline PO for hospice eval Nutritional Asmnt/Malnutr-PDOC - Dietary Evaluation Malnutrition Findings (Please click <Entered> for more info): Nutritional Asmnt/Malnutrition Start: 11/05/17 16: 25 Text: Status: Complete Freq: Document 11/05/17 16:25 LCHEATHER (Rec: 11/05/17 16:31 LCDEMIG [email or web address]) Nutritional Asmnt/Malnutrition Patient General Information Nutritional Screening Moderate Risk Diagnosis dehydration Pertinent Medical Hx/Surgical Hx DM, dementia, depression, psychosis, schizophrenia, chronic renal insuff Subjective Information Pt is agitated, on 1:1 sitter. Per EMR, PO intake 25-75%, avg 50%. Current Diet Order/ Nutrition Support pureed, CCHO 60gm Pertinent Medications novolov, levemir, glucophage Pertinent Labs 11/03- POC 181-316 Nutritional Hx/Data Height 1.8 m Height (Calculated Centimeters) 180.3 Current Weight (lbs) 77.111 kg Weight (Calculated Kilograms) 77.1 Weight (Calculated Grams) 41939.7 [place] Body Weight 172 Body Mass Index (BMI) 23.7 Weight Status Approriate GI Symptoms GI Symptoms None Last BM 11/03 Difficult in: None Skin Integrity/Comment: pressure ulcer, decubitus Current %PO Fair (50-74%) Estimated Nutritional Goals BEE in Kcals: Using Current wt Calories/Kcals/Kg 25-30 Kcals Calculated 3873-3351 Protein: Using Current wt Protein g/k-1.2 Protein Calculated 77-92 Fluid: ml 1925-2310ml (1ml/kcal) Nutritional Problem 1. Problem Problem altered nutrition related lab values Etiology hx of DM Signs/Symptoms: glucose 169, POC 181-316 Malnutrition Alert Protein-Calorie Malnutrition N/A Is there a minimum of two criteria No selected? Query Text:Check all the applicable criteria. A minimum of two criteria are recommended for diagnosis of either severe or non-severe malnutrition. Intervention/Recommendation Comments 1. Continue with current diet as ordered. 2. Monitor PO intake, wt, labs and skin integrity 3. F/U as moderate risk in 3-5 days, 11/08-11/10 Expected Outcomes/Goals Expected Outcomes/Goals 1. PO intake to meet at least 75% of nutritional needs. 2. Wt stability, skin to remain intact, labs to approach WNL.
[2017-11-12] MEDS: OLANZapine 5 mg Oral Disintegrating Tab PO SCH ×2 (08:57→16:33)
[2017-11-12] MEDS: Insulin Detemir 100 units/mL 10mL Vial SUBQ SCH (10:59)
[2017-11-12] MEDS: INSULIN ASPART SLIDING SCALE 100 UNITS/ML UNIT SUBQ SCH ×4 (10:59→21:47)
[2017-11-12] MEDS: Venelex 60gm Tube TP SCH (10:59)
--- NOTE | 2017-11-12 13:38 | General Progress Note ---
Subjective - Review of Systems Service Date: 11/12/17 Subjective: lying in bed, more friendly Objective - Results Result Diagrams: 11/09/17 05:00 Recent Labs: Laboratory Last Values PT 9.5 SECONDS (9.5-11.5) 11/05/17 21:35 INR 0.91 (0.5-1.4) 11/05/17 21:35 Sodium 134 mEq/L (136-145) L 11/09/17 05:00 Potassium 4.4 mEq/L (3.5-5.1) 11/09/17 05:00 Chloride 99 mEq/L (98-107) 11/09/17 05:00 Carbon Dioxide 25.3 mEq/L (21.0-31.0) 11/09/17 05:00 Anion Gap 14.1 (7.0-16.0) 11/09/17 05:00 BUN 9 mg/dL (7-25) 11/09/17 05:00 Creatinine 0.9 mg/dL (0.7-1.3) 11/09/17 05:00 Est GFR ( Amer) TNP 11/09/17 05:00 Est GFR (Non-Af Amer) TNP 11/09/17 05:00 BUN/Creatinine Ratio 10.0 11/09/17 05:00 Glucose 240 mg/dL (70-105) H 11/09/17 05:00 POC Glucose 333 MG/DL (70 - 105) H 11/11/17 21:45 Calcium 9.3 mg/dL (8.6-10.3) 11/09/17 05:00 Urine Source ANDRE PORT 11/11/17 21:30 Urine Color YELLOW 11/11/17 21:30 Urine Clarity HAZY (CLEAR) 11/11/17 21:30 Urine pH 5.5 (4.6 - 8.0) 11/11/17 21:30 Ur Specific [place] 1.010 (1.005-1.030) 11/11/17 21:30 Urine Protein NEGATIVE mg/dL (NEGATIVE) 11/11/17 21:30 Urine Glucose (UA) >=1000 mg/dL (NEGATIVE) H 11/11/17 21:30 Urine Ketones NEGATIVE mg/dL (NEGATIVE) 11/11/17 21:30 Urine Blood LARGE (NEGATIVE) H 11/11/17 21:30 Urine Nitrate NEGATIVE (NEGATIVE) 11/11/17 21:30 Urine Bilirubin NEGATIVE (NEGATIVE) 11/11/17 21:30 Urine Urobilinogen 0.2 E.U./dL (0.2 - 1.0) 11/11/17 21:30 Ur Leukocyte Esterase SMALL (NEGATIVE) H 11/11/17 21:30 Urine RBC 10-25 /hpf (0-5) H 11/11/17 21:30 Urine WBC 2-5 /hpf (0-5) 11/11/17 21:30 Ur Epithelial Cells OCCASIONAL /lpf (FEW) 11/11/17 21:30 Urine Bacteria FEW /hpf (NONE SEEN) 11/11/17 21:30 Urine Yeast FEW /hpf (NONE SEEN) H 11/11/17 21:30 Vancomycin Trough 13.4 ug/mL (10-20) 11/10/17 13:30 - Physical Exam Vitals and I&O: Vital Signs Temp 98.0 F 11/12/17 08:00 Pulse 84 11/12/17 08:58 Resp 18 11/12/17 08:00 BP 141/84 11/12/17 08:58 Pulse Ox 98 11/12/17 08:00 Intake & Output 11/11/17 11/12/17 11/12/17 18:59 06:59 18:59 Intake Total 750 100 Output Total 900 1150 Balance -150 -1050 Weight (lbs) 77.111 kg 77.111 kg Intake: Intake, IV Amount 250 Vancomycin HCl 1 gm In 250 Sodium Chloride 0.9% 250 ml @ 165 mls/hr IV Q12H [facility] Rx#:[id number] Oral 500 100 Output: Urine 900 1150 Other: # Bowel Movements 0 Stool Characteristics Soft Formed Weight Source Bedscale Bedscale Active Medications: Current Medications Acetaminophen (Tylenol) 650 mg PO Q6H PRN PRN Reason: mild to moderate pain Stop: 12/30/17 23:24 Acetaminophen/Hydrocodone Bitart ([place] 5mg/325mg) 1 tab PO Q6H PRN PRN Reason: Pain (Moderate) Stop: 12/30/17 23:24 Last Admin: 11/11/17 16:56 Dose: 1 tab Allopurinol (Zyloprim) 100 mg PO DAILY [facility] Stop: 12/30/17 23:24 Last Admin: 11/12/17 08:58 Dose: 100 mg [place] Oil/[place] Balsam/Trypsin (Venelex) 1 appl TP DAILY [facility] Stop: 12/30/17 23:24 Last Admin: 11/12/17 10:59 Dose: Not Given Clonazepam (Klonopin) 1 mg PO BID [facility] PRN Reason: Protocol Stop: 12/31/17 09:59 Last Admin: 11/12/17 08:58 Dose: 1 mg Donepezil HCl (Aricept) 5 mg PO DAILY [facility] Stop: 01/04/18 08:59 Last Admin: 11/12/17 08:59 Dose: 5 mg Doxycycline Hyclate (Vibramycin) 100 mg PO Q12HR [facility] Stop: 01/11/18 08:59 Last Admin: 11/12/17 08:58 Dose: 100 mg Famotidine (Pepcid) 20 mg PO BID [facility] Stop: 12/30/17 23:24 Last Admin: 11/12/17 08:57 Dose: 20 mg Fluconazole (Diflucan) 100 mg PO DAILY [facility] Stop: 12/30/17 23:24 Last Admin: 11/12/17 08:58 Dose: 100 mg Heparin Sodium (Porcine) (Heparin) 5,000 units SUBQ Q12HR [facility] PRN Reason: Protocol Stop: 12/30/17 23:24 Last Admin: 11/12/17 10:59 Dose: Not Given Vancomycin HCl 1 gm/ Sodium (Chloride) 250 mls @ 165 mls/hr IV Q12H [facility] Stop: 01/10/18 13:59 Last Admin: 11/12/17 03:33 Dose: 165 mls/hr Insulin Aspart (Novolog Insulin Sliding Scale) 0 units SUBQ ACHS [facility] PRN Reason: Protocol Stop: 12/31/17 07:29 Last Admin: 11/12/17 10:59 Dose: Not Given Insulin Detemir (Levemir Insulin) 18 units SUBQ DAILY [facility] PRN Reason: Protocol Stop: 12/30/17 23:24 Last Admin: 11/12/17 10:59 Dose: Not Given Magnesium Hydroxide (Milk Of Magnesia) 30 ml PO HS PRN PRN Reason: Constipation Stop: 12/30/17 23:24 Metformin HCl (Glucophage) 1,000 mg PO DAILY [facility] Stop: 12/31/17 09:59 Last Admin: 11/12/17 08:58 Dose: 1,000 mg Metoprolol Succinate (Toprol Xl) 25 mg PO DAILY [facility] Stop: 12/30/17 23:24 Last Admin: 11/12/17 08:58 Dose: 25 mg Miscellaneous (Vte Chemical Prophylaxis Screen/ Admission) 1 ea PRN PRN PRN Reason: PROTOCOL Stop: 12/31/17 10:29 Miscellaneous (Vancomycin Iv Per Pharmacy) 1 ea PRN PRN PRN Reason: PROTOCOL Stop: 01/07/18 16:10 Olanzapine (Zyprexa Zydis) 10 mg PO BID [facility] PRN Reason: Protocol Stop: 01/05/18 07:53 Last Admin: 11/12/17 08:57 Dose: 10 mg Zolpidem Tartrate (Ambien) 5 mg PO HS PRN PRN Reason: insomnia Stop: 12/30/17 23:24 Last Admin: 11/03/17 19:55 Dose: 5 mg General: Alert, No acute distress HEENT: Atraumatic, PERRLA, EOMI Neck: Supple, JVD, +2 carotid pulse wo bruit Cardiovascular: Regular rate, Normal S1, Normal S2 Lungs: Clear to auscultation Abdomen: Bowel sounds, Soft Extremities: no Clubbing, no Cyanosis, no Edema Neurological: Sensation intact Skin: no Rash Psych/Mental Status: Other (psychosis) - Procedures Procedures: Procedures Procedure Code Date JEWEL MUSC/FASCIA 20 SQ CM/< 47568 10/12/17 EXCISION OF RIGHT HIP MUSCLE, OPEN APPROACH [id number] 10/12/17 INTRODUCTION OF SERUM/TOX/VACCINE INTO MUSCLE, PERC APPROACH [id number] 10/12/17 Assessment/Plan - Assessment Assessment: S/P KEN S/P electrolyte imbalance Acute decomp of Psychosis Type 2 DM MRSA, Yeast UTI - Plan Plan: Lab - Result Diagrams 11/01/17 06:48 Current Medications Acetaminophen (Tylenol) 650 mg PO Q6H PRN PRN Reason: mild to moderate pain Stop: 12/30/17 23:24 Acetaminophen/Hydrocodone Bitart ([place] 5mg/325mg) 1 tab PO Q6H PRN PRN Reason: Pain (Moderate) Stop: 12/30/17 23:24 Allopurinol (Zyloprim) 100 mg PO DAILY [facility] Stop: 12/30/17 23:24 Last Admin: 11/01/17 10:54 Dose: 100 mg [place] Oil/[place] Balsam/Trypsin (Venelex) 1 appl TP DAILY [facility] Stop: 12/30/17 23:24 Last Admin: 11/01/17 11:02 Dose: 1 appl Clonazepam (Klonopin) 1 mg PO BID [facility] PRN Reason: Protocol Stop: 12/31/17 09:59 Famotidine (Pepcid) 20 mg PO BID [facility] Stop: 12/30/17 23:24 Last Admin: 11/01/17 10:54 Dose: 20 mg Fluconazole (Diflucan) 100 mg PO DAILY [facility] Stop: 12/30/17 23:24 Last Admin: 11/01/17 11:02 Dose: 100 mg Heparin Sodium (Porcine) (Heparin) 5,000 units SUBQ Q12HR [facility] PRN Reason: Protocol Stop: 12/30/17 23:24 Last Admin: 11/01/17 10:59 Dose: 5,000 units Levofloxacin (Levaquin Pb) 500 mg in 100 mls @ 100 mls/hr IV Q24H [facility] Stop: 12/31/17 11:59 Insulin Aspart (Novolog Insulin Sliding Scale) 0 units SUBQ ACHS [facility] PRN Reason: Protocol Stop: 12/30/17 23:24 Last Admin: 11/01/17 10:45 Dose: 2 units Insulin Aspart (Novolog Insulin Sliding Scale) 0 units SUBQ ACHS [facility] PRN Reason: Protocol Stop: 12/31/17 07:29 Insulin Detemir (Levemir Insulin) 18 units SUBQ DAILY [facility] PRN Reason: Protocol Stop: 12/30/17 23:24 Last Admin: 11/01/17 10:56 Dose: 18 units Lorazepam (Ativan) 0.5 mg PO Q6HR PRN; Protocol PRN Reason: agitation Stop: 12/30/17 23:24 Magnesium Hydroxide (Milk Of Magnesia) 30 ml PO HS PRN PRN Reason: Constipation Stop: 12/30/17 23:24 Metformin HCl (Glucophage) 1,000 mg PO DAILY [facility] Stop: 12/31/17 09:59 Metoprolol Succinate (Toprol Xl) 25 mg PO DAILY [facility] Stop: 12/30/17 23:24 Last Admin: 11/01/17 10:55 Dose: 25 mg Miscellaneous (Vte Chemical Prophylaxis Screen/ Admission) 1 ea MC PRN PRN PRN Reason: PROTOCOL Stop: 12/31/17 10:29 Olanzapine (Zyprexa Zydis) 5 mg PO DAILY [facility] PRN Reason: Protocol Stop: 12/31/17 09:59 Zolpidem Tartrate (Ambien) 5 mg PO HS PRN PRN Reason: insomnia Stop: 12/30/17 23:24 Lab - Result Diagrams 11/09/17 05:00 kidney fnc remain stable encourage po intake psych meds start Vanco W/ Diflucan awaiting placement Nutritional Asmnt/Malnutr-PDOC - Dietary Evaluation Malnutrition Findings (Please click <Entered> for more info): Nutritional Asmnt/Malnutrition Start: 11/05/17 16: 25 Text: Status: Complete Freq: Document 11/05/17 16:25 GREY (Rec: 11/05/17 16:31 GREY [email or web address]) Nutritional Asmnt/Malnutrition Patient General Information Nutritional Screening Moderate Risk Diagnosis dehydration Pertinent Medical Hx/Surgical Hx DM, dementia, depression, psychosis, schizophrenia, chronic renal insuff Subjective Information Pt is agitated, on 1:1 sitter. Per EMR, PO intake 25-75%, avg 50%. Current Diet Order/ Nutrition Support pureed, CCHO 60gm Pertinent Medications novolov, levemir, glucophage Pertinent Labs 11/03- POC 181-316 Nutritional Hx/Data Height 1.8 m Height (Calculated Centimeters) 180.3 Current Weight (lbs) 77.111 kg Weight (Calculated Kilograms) 77.1 Weight (Calculated Grams) 96556.7 [place] Body Weight 172 Body Mass Index (BMI) 23.7 Weight Status Approriate GI Symptoms GI Symptoms None Last BM 11/03 Difficult in: None Skin Integrity/Comment: pressure ulcer, decubitus Current %PO Fair (50-74%) Estimated Nutritional Goals BEE in Kcals: Using Current wt Calories/Kcals/Kg 25-30 Kcals Calculated 1508-4676 Protein: Using Current wt Protein g/k-1.2 Protein Calculated 77-92 Fluid: ml 1925-2310ml (1ml/kcal) Nutritional Problem 1. Problem Problem altered nutrition related lab values Etiology hx of DM Signs/Symptoms: glucose 169, POC 181-316 Malnutrition Alert Protein-Calorie Malnutrition N/A Is there a minimum of two criteria No selected? Query Text:Check all the applicable criteria. A minimum of two criteria are recommended for diagnosis of either severe or non-severe malnutrition. Intervention/Recommendation Comments 1. Continue with current diet as ordered. 2. Monitor PO intake, wt, labs and skin integrity 3. F/U as moderate risk in 3-5 days, 11/08-11/10 Expected Outcomes/Goals Expected Outcomes/Goals 1. PO intake to meet at least 75% of nutritional needs. 2. Wt stability, skin to remain intact, labs to approach WNL.
--- NOTE | 2017-11-12 20:16 | Progress Notes ---
DATE: Chart reviewed and the patient interviewed. Also discussed the patient's condition with the staff and reviewed records and labs. The patient is still agitated and restless. The patient also is still having periods of irritability, but slightly easier to redirect him. Also, continued to comply with taking his medications with no side effects of medications. ASSESSMENT: The patient is still agitated and irritable. TREATMENT PLAN: Continue monitoring his behavior and his condition and continue to work on his agitation and adjusting psychotropic medications. JOB# [id number]
[2017-11-13 07:28] LABS: % BASOPHILS 0.4 % (0.0-2.0); % EOSINOPHILS 2.8 % (0.0-5.0); % LYMPHOCYTES 26.9 % (20.0-50.0); % MONOCYTES 5.3 % (2.0-10.0); % NEUTROPHILS 64.6 % (40.0-80.0); EOSINOPHILE ABSOLUTE 0.3 Th/cmm (0.1-0.4); HEMATOCRIT 37.9 % (41.0-60); HEMOGLOBIN 12.5 gm/dL (12-16); LYMPHOCYTE ABSOLUTE 2.7 Th/cmm (1.5-3.0); MEAN CELL VOLUME 90.6 fl (80-99); MEAN CORPUSCULAR HEMOGLOBIN 29.9 pg (27.0-31.0); MONOCYTE ABSOLUTE 0.5 Th/cmm (0.3-1.0); NEUTROPHILE ABSOLUTE 6.7 Th/cmm (1.8-8.0); PLATELET COUNT 283 Th/cmm (150-400); RED BLOOD COUNT 4.18 Mil/cmm (3.80-5.80); RED CELL DISTRIBUTION WIDTH 16.5 % (11.5-20.0); WHITE BLOOD COUNT 10.2 Th/cmm (4.8-10.8)
[2017-11-13 07:56] LABS: ANION GAP 13.7 (7.0-16.0); BUN - UREA NITROGEN 10 mg/dL (7-25); CALCIUM SERUM 8.7 mg/dL (8.6-10.3); CARBON DIOXIDE 23.2 mEq/L (21.0-31.0); CHLORIDE 99 mEq/L (98-107); CREATININE - SERUM 0.9 mg/dL (0.7-1.3); GLUCOSE 256 mg/dL (70-105); POTASSIUM SERUM 3.9 mEq/L (3.5-5.1); SODIUM SERUM 132 mEq/L (136-145)
--- NOTE | 2017-11-13 08:01 | General Progress Note ---
Subjective - Review of Systems Service Date: 11/13/17 Subjective: Patient resting comfortably in bed. no acute distress. In good spirits today. pleasant. cooperative today. eating well. Blood Sugars improving. Will adjust dosage. Objective - Results Result Diagrams: 11/13/17 07:00 11/09/17 05:00 Recent Labs: Laboratory Last Values WBC 10.2 Th/cmm (4.8-10.8) 11/13/17 07:00 RBC 4.18 Mil/cmm (3.80-5.80) 11/13/17 07:00 Hgb 12.5 gm/dL (12-16) 11/13/17 07:00 Hct 37.9 % (41.0-60) L 11/13/17 07:00 MCV 90.6 fl (80-99) 11/13/17 07:00 MCH 29.9 pg (27.0-31.0) 11/13/17 07:00 MCHC Differential 33.0 pg (28.0-36.0) 11/13/17 07:00 RDW 16.5 % (11.5-20.0) 11/13/17 07:00 Plt Count 283 Th/cmm (150-400) 11/13/17 07:00 MPV 8.0 fl 11/13/17 07:00 Neutrophils % 64.6 % (40.0-80.0) 11/13/17 07:00 Lymphocytes % 26.9 % (20.0-50.0) 11/13/17 07:00 Monocytes % 5.3 % (2.0-10.0) 11/13/17 07:00 Eosinophils % 2.8 % (0.0-5.0) 11/13/17 07:00 Basophils % 0.4 % (0.0-2.0) 11/13/17 07:00 PT 9.5 SECONDS (9.5-11.5) 11/05/17 21:35 INR 0.91 (0.5-1.4) 11/05/17 21:35 Sodium 134 mEq/L (136-145) L 11/09/17 05:00 Potassium 4.4 mEq/L (3.5-5.1) 11/09/17 05:00 Chloride 99 mEq/L (98-107) 11/09/17 05:00 Carbon Dioxide 25.3 mEq/L (21.0-31.0) 11/09/17 05:00 Anion Gap 14.1 (7.0-16.0) 11/09/17 05:00 BUN 9 mg/dL (7-25) 11/09/17 05:00 Creatinine 0.9 mg/dL (0.7-1.3) 11/09/17 05:00 Est GFR ( Amer) TNP 11/09/17 05:00 Est GFR (Non-Af Amer) TNP 11/09/17 05:00 BUN/Creatinine Ratio 10.0 11/09/17 05:00 Glucose 240 mg/dL (70-105) H 11/09/17 05:00 POC Glucose 265 MG/DL (70 - 105) H 11/13/17 06:18 Calcium 9.3 mg/dL (8.6-10.3) 11/09/17 05:00 Urine Source ANDRE PORT 11/11/17 21:30 Urine Color YELLOW 11/11/17 21:30 Urine Clarity HAZY (CLEAR) 11/11/17 21:30 Urine pH 5.5 (4.6 - 8.0) 11/11/17 21:30 Ur Specific [place] 1.010 (1.005-1.030) 11/11/17 21:30 Urine Protein NEGATIVE mg/dL (NEGATIVE) 11/11/17 21:30 Urine Glucose (UA) >=1000 mg/dL (NEGATIVE) H 11/11/17 21:30 Urine Ketones NEGATIVE mg/dL (NEGATIVE) 11/11/17 21:30 Urine Blood LARGE (NEGATIVE) H 11/11/17 21:30 Urine Nitrate NEGATIVE (NEGATIVE) 11/11/17 21:30 Urine Bilirubin NEGATIVE (NEGATIVE) 11/11/17 21:30 Urine Urobilinogen 0.2 E.U./dL (0.2 - 1.0) 11/11/17 21:30 Ur Leukocyte Esterase SMALL (NEGATIVE) H 11/11/17 21:30 Urine RBC 10-25 /hpf (0-5) H 11/11/17 21:30 Urine WBC 2-5 /hpf (0-5) 11/11/17 21:30 Ur Epithelial Cells OCCASIONAL /lpf (FEW) 11/11/17 21:30 Urine Bacteria FEW /hpf (NONE SEEN) 11/11/17 21:30 Urine Yeast FEW /hpf (NONE SEEN) H 11/11/17 21:30 Vancomycin Trough 13.4 ug/mL (10-20) 11/10/17 13:30 - Physical Exam Vitals and I&O: Vital Signs Temp 96.4 F 11/13/17 04:00 Pulse 70 11/13/17 04:00 Resp 20 11/13/17 04:00 BP 107/67 11/13/17 04:00 Pulse Ox 96 11/13/17 04:00 Intake & Output 11/12/17 11/13/17 11/13/17 18:59 06:59 18:59 Intake Total 250 1150 Output Total 2600 Balance 250 -1450 Weight (lbs) 77.111 kg Intake: Intake, IV Amount 250 Vancomycin HCl 1 gm In 250 Sodium Chloride 0.9% 250 ml @ 165 mls/hr IV Q12H [facility] Rx#:[id number] Oral 900 Tube Feeding 250 Output: Urine 2600 Stool 0 Other: # Bowel Movements 0 Weight Source Bedscale Active Medications: Current Medications Acetaminophen (Tylenol) 650 mg PO Q6H PRN PRN Reason: mild to moderate pain Stop: 12/30/17 23:24 Acetaminophen/Hydrocodone Bitart ([place] 5mg/325mg) 1 tab PO Q6H PRN PRN Reason: Pain (Moderate) Stop: 12/30/17 23:24 Last Admin: 11/11/17 16:56 Dose: 1 tab Allopurinol (Zyloprim) 100 mg PO DAILY [facility] Stop: 12/30/17 23:24 Last Admin: 11/12/17 08:58 Dose: 100 mg [place] Oil/[place] Balsam/Trypsin (Venelex) 1 appl TP DAILY [facility] Stop: 12/30/17 23:24 Last Admin: 11/12/17 10:59 Dose: Not Given Clonazepam (Klonopin) 1 mg PO BID [facility] PRN Reason: Protocol Stop: 12/31/17 09:59 Last Admin: 11/12/17 16:33 Dose: 1 mg Donepezil HCl (Aricept) 5 mg PO DAILY [facility] Stop: 01/04/18 08:59 Last Admin: 11/12/17 08:59 Dose: 5 mg Doxycycline Hyclate (Vibramycin) 100 mg PO Q12HR [facility] Stop: 01/11/18 08:59 Last Admin: 11/12/17 21:47 Dose: 100 mg Famotidine (Pepcid) 20 mg PO BID [facility] Stop: 12/30/17 23:24 Last Admin: 11/12/17 16:34 Dose: 20 mg Fluconazole (Diflucan) 100 mg PO DAILY [facility] Stop: 12/30/17 23:24 Last Admin: 11/12/17 08:58 Dose: 100 mg Heparin Sodium (Porcine) (Heparin) 5,000 units SUBQ Q12HR [facility] PRN Reason: Protocol Stop: 12/30/17 23:24 Last Admin: 11/12/17 21:46 Dose: 5,000 units Vancomycin HCl 1 gm/ Sodium (Chloride) 250 mls @ 165 mls/hr IV Q12H [facility] Stop: 01/10/18 13:59 Last Admin: 11/13/17 03:06 Dose: 165 mls/hr Insulin Aspart (Novolog Insulin Sliding Scale) 0 units SUBQ ACHS [facility] PRN Reason: Protocol Stop: 12/31/17 07:29 Last Admin: 11/12/17 21:47 Dose: 12 units Insulin Detemir (Levemir Insulin) 20 units SUBQ DAILY [facility] PRN Reason: Protocol Stop: 01/12/18 06:20 Magnesium Hydroxide (Milk Of Magnesia) 30 ml PO HS PRN PRN Reason: Constipation Stop: 12/30/17 23:24 Metformin HCl (Glucophage) 1,000 mg PO DAILY [facility] Stop: 12/31/17 09:59 Last Admin: 11/12/17 08:58 Dose: 1,000 mg Metoprolol Succinate (Toprol Xl) 25 mg PO DAILY [facility] Stop: 12/30/17 23:24 Last Admin: 11/12/17 08:58 Dose: 25 mg Miscellaneous (Vte Chemical Prophylaxis Screen/ Admission) 1 ea MC PRN PRN PRN Reason: PROTOCOL Stop: 12/31/17 10:29 Miscellaneous (Vancomycin Iv Per Pharmacy) 1 ea MC PRN PRN PRN Reason: PROTOCOL Stop: 01/07/18 16:10 Olanzapine (Zyprexa Zydis) 10 mg PO BID [facility] PRN Reason: Protocol Stop: 01/05/18 07:53 Last Admin: 11/12/17 16:33 Dose: 10 mg Zolpidem Tartrate (Ambien) 5 mg PO HS PRN PRN Reason: insomnia Stop: 12/30/17 23:24 Last Admin: 11/03/17 19:55 Dose: 5 mg General: Alert, No acute distress HEENT: Atraumatic, PERRLA, EOMI Neck: Supple, JVD, +2 carotid pulse wo bruit Cardiovascular: Regular rate, Normal S1, Normal S2 Lungs: Clear to auscultation Abdomen: Bowel sounds, Soft Extremities: no Clubbing, no Cyanosis, no Edema Neurological: Sensation intact Skin: no Rash Psych/Mental Status: Other (psychosis) - Procedures Procedures: Procedures Procedure Code Date JEWEL MUSC/FASCIA 20 SQ CM/< 90210 10/12/17 EXCISION OF RIGHT HIP MUSCLE, OPEN APPROACH [id number] 10/12/17 INTRODUCTION OF SERUM/TOX/VACCINE INTO MUSCLE, PERC APPROACH [id number] 10/12/17 Assessment/Plan - Assessment Assessment: psychosis dementia Alzheimer's dementia diabetes mellitus not controlled. s/p wound debridement of sacral decubiti UTI hyperglycemia - Plan Plan: continue current medications. will add doxycyline PO for hospice eval Nutritional Asmnt/Malnutr-PDOC - Dietary Evaluation Malnutrition Findings (Please click <Entered> for more info): Nutritional Asmnt/Malnutrition Start: 11/05/17 16: 25 Text: Status: Complete Freq: Document 11/05/17 16:25 LCHENG (Rec: 11/05/17 16:31 [email or web address]) Nutritional Asmnt/Malnutrition Patient General Information Nutritional Screening Moderate Risk Diagnosis dehydration Pertinent Medical Hx/Surgical Hx DM, dementia, depression, psychosis, schizophrenia, chronic renal insuff Subjective Information Pt is agitated, on 1:1 sitter. Per EMR, PO intake 25-75%, avg 50%. Current Diet Order/ Nutrition Support pureed, CCHO 60gm Pertinent Medications novolov, levemir, glucophage Pertinent Labs 11/03- POC 181-316 Nutritional Hx/Data Height 1.8 m Height (Calculated Centimeters) 180.3 Current Weight (lbs) 77.111 kg Weight (Calculated Kilograms) 77.1 Weight (Calculated Grams) 23042.7 [place] Body Weight 172 Body Mass Index (BMI) 23.7 Weight Status Approriate GI Symptoms GI Symptoms None Last BM 11/03 Difficult in: None Skin Integrity/Comment: pressure ulcer, decubitus Current %PO Fair (50-74%) Estimated Nutritional Goals BEE in Kcals: Using Current wt Calories/Kcals/Kg 25-30 Kcals Calculated 0451-5117 Protein: Using Current wt Protein g/k-1.2 Protein Calculated 77-92 Fluid: ml 1925-2310ml (1ml/kcal) Nutritional Problem 1. Problem Problem altered nutrition related lab values Etiology hx of DM Signs/Symptoms: glucose 169, POC 181-316 Malnutrition Alert Protein-Calorie Malnutrition N/A Is there a minimum of two criteria No selected? Query Text:Check all the applicable criteria. A minimum of two criteria are recommended for diagnosis of either severe or non-severe malnutrition. Intervention/Recommendation Comments 1. Continue with current diet as ordered. 2. Monitor PO intake, wt, labs and skin integrity 3. F/U as moderate risk in 3-5 days, 11/08-11/10 Expected Outcomes/Goals Expected Outcomes/Goals 1. PO intake to meet at least 75% of nutritional needs. 2. Wt stability, skin to remain intact, labs to approach WNL.
[2017-11-13] MEDS: INSULIN ASPART SLIDING SCALE 100 UNITS/ML UNIT SUBQ SCH ×5 (08:30→21:36)
[2017-11-13] MEDS: Insulin Detemir 100 units/mL 10mL Vial SUBQ SCH (08:47)
--- NOTE | 2017-11-13 10:53 | Progress Notes ---
DATE: SUBJECTIVE: Chart reviewed and the patient interviewed. Also discussed the patient's condition with the staff and reviewed records and labs. The patient still has episodes of agitation and irritability. Also, still needs lots of redirections. The patient also still was at times trying to get off bed. Otherwise, the patient seems to be more cooperative and more compliant with taking his medications with no side effects of medications. ASSESSMENT: The patient is still confused and agitated. TREATMENT PLAN: We will increase Aricept to 10 mg every day with. Also, continue to monitor his psychotropic medications. Also, we will continue to work on discharge plans and placement issue. The patient also continued to take Klonopin and Aricept increased to 10 mg every day. Also, Zyprexa continued to be 10 mg twice a day. JOB# [id number]
[2017-11-13] MEDS: OLANZapine 5 mg Oral Disintegrating Tab PO SCH ×2 (11:00→18:00)
[2017-11-13] MEDS: Venelex 60gm Tube TP SCH (11:00)
--- NOTE | 2017-11-13 13:37 | General Progress Note ---
Subjective - Review of Systems Service Date: 11/13/17 Subjective: lying in bed, more friendly, cooperative Objective - Results Result Diagrams: 11/13/17 07:00 11/13/17 07:00 Recent Labs: Laboratory Last Values WBC 10.2 Th/cmm (4.8-10.8) 11/13/17 07:00 RBC 4.18 Mil/cmm (3.80-5.80) 11/13/17 07:00 Hgb 12.5 gm/dL (12-16) 11/13/17 07:00 Hct 37.9 % (41.0-60) L 11/13/17 07:00 MCV 90.6 fl (80-99) 11/13/17 07:00 MCH 29.9 pg (27.0-31.0) 11/13/17 07:00 MCHC Differential 33.0 pg (28.0-36.0) 11/13/17 07:00 RDW 16.5 % (11.5-20.0) 11/13/17 07:00 Plt Count 283 Th/cmm (150-400) 11/13/17 07:00 MPV 8.0 fl 11/13/17 07:00 Neutrophils % 64.6 % (40.0-80.0) 11/13/17 07:00 Lymphocytes % 26.9 % (20.0-50.0) 11/13/17 07:00 Monocytes % 5.3 % (2.0-10.0) 11/13/17 07:00 Eosinophils % 2.8 % (0.0-5.0) 11/13/17 07:00 Basophils % 0.4 % (0.0-2.0) 11/13/17 07:00 PT 9.5 SECONDS (9.5-11.5) 11/05/17 21:35 INR 0.91 (0.5-1.4) 11/05/17 21:35 Sodium 132 mEq/L (136-145) L 11/13/17 07:00 Potassium 3.9 mEq/L (3.5-5.1) 11/13/17 07:00 Chloride 99 mEq/L (98-107) 11/13/17 07:00 Carbon Dioxide 23.2 mEq/L (21.0-31.0) 11/13/17 07:00 Anion Gap 13.7 (7.0-16.0) 11/13/17 07:00 BUN 10 mg/dL (7-25) 11/13/17 07:00 Creatinine 0.9 mg/dL (0.7-1.3) 11/13/17 07:00 Est GFR ( Amer) TNP 11/13/17 07:00 Est GFR (Non-Af Amer) TNP 11/13/17 07:00 BUN/Creatinine Ratio 11.1 11/13/17 07:00 Glucose 256 mg/dL (70-105) H 11/13/17 07:00 POC Glucose 265 MG/DL (70 - 105) H 11/13/17 06:18 Calcium 8.7 mg/dL (8.6-10.3) 11/13/17 07:00 Urine Source ANDRE PORT 11/11/17 21:30 Urine Color YELLOW 11/11/17 21:30 Urine Clarity HAZY (CLEAR) 11/11/17 21:30 Urine pH 5.5 (4.6 - 8.0) 11/11/17 21:30 Ur Specific [place] 1.010 (1.005-1.030) 11/11/17 21:30 Urine Protein NEGATIVE mg/dL (NEGATIVE) 11/11/17 21:30 Urine Glucose (UA) >=1000 mg/dL (NEGATIVE) H 11/11/17 21:30 Urine Ketones NEGATIVE mg/dL (NEGATIVE) 11/11/17 21:30 Urine Blood LARGE (NEGATIVE) H 11/11/17 21:30 Urine Nitrate NEGATIVE (NEGATIVE) 11/11/17 21:30 Urine Bilirubin NEGATIVE (NEGATIVE) 11/11/17 21:30 Urine Urobilinogen 0.2 E.U./dL (0.2 - 1.0) 11/11/17 21:30 Ur Leukocyte Esterase SMALL (NEGATIVE) H 11/11/17 21:30 Urine RBC 10-25 /hpf (0-5) H 11/11/17 21:30 Urine WBC 2-5 /hpf (0-5) 11/11/17 21:30 Ur Epithelial Cells OCCASIONAL /lpf (FEW) 11/11/17 21:30 Urine Bacteria FEW /hpf (NONE SEEN) 11/11/17 21:30 Urine Yeast FEW /hpf (NONE SEEN) H 11/11/17 21:30 Vancomycin Trough 13.4 ug/mL (10-20) 11/10/17 13:30 - Physical Exam Vitals and I&O: Vital Signs Temp 96.4 F 11/13/17 04:00 Pulse 70 11/13/17 04:00 Resp 18 11/13/17 08:00 BP 107/67 11/13/17 04:00 Pulse Ox 96 11/13/17 04:00 Intake & Output 11/12/17 11/13/17 11/13/17 18:59 06:59 18:59 Intake Total 250 1150 Output Total 2600 Balance 250 -1450 Weight (lbs) 77.111 kg 77.111 kg Intake: Intake, IV Amount 250 Vancomycin HCl 1 gm In 250 Sodium Chloride 0.9% 250 ml @ 165 mls/hr IV Q12H REPLACED BY [facility] Rx#:[id number] Oral 900 Tube Feeding 250 Output: Urine 2600 Stool 0 Other: # Bowel Movements 0 Weight Source Bedscale Bedscale Active Medications: Current Medications Acetaminophen (Tylenol) 650 mg PO Q6H PRN PRN Reason: mild to moderate pain Stop: 12/30/17 23:24 Acetaminophen/Hydrocodone Bitart ([place] 5mg/325mg) 1 tab PO Q6H PRN PRN Reason: Pain (Moderate) Stop: 12/30/17 23:24 Last Admin: 11/11/17 16:56 Dose: 1 tab Allopurinol (Zyloprim) 100 mg PO DAILY REPLACED BY [facility] Stop: 12/30/17 23:24 Last Admin: 11/12/17 08:58 Dose: 100 mg [place] Oil/Hungarian Balsam/Trypsin (Venelex) 1 appl TP DAILY REPLACED BY [facility] Stop: 12/30/17 23:24 Last Admin: 11/12/17 10:59 Dose: Not Given Clonazepam (Klonopin) 1 mg PO BID [facility] PRN Reason: Protocol Stop: 12/31/17 09:59 Last Admin: 11/12/17 16:33 Dose: 1 mg Donepezil HCl (Aricept) 10 mg PO DAILY REPLACED BY [facility] Stop: 01/12/18 08:00 Doxycycline Hyclate (Vibramycin) 100 mg PO Q12HR REPLACED BY [facility] Stop: 01/11/18 08:59 Last Admin: 11/12/17 21:47 Dose: 100 mg Famotidine (Pepcid) 20 mg PO BID [facility] Stop: 12/30/17 23:24 Last Admin: 11/12/17 16:34 Dose: 20 mg Fluconazole (Diflucan) 100 mg PO DAILY [facility] Stop: 12/30/17 23:24 Last Admin: 11/12/17 08:58 Dose: 100 mg Heparin Sodium (Porcine) (Heparin) 5,000 units SUBQ Q12HR [facility] PRN Reason: Protocol Stop: 12/30/17 23:24 Last Admin: 11/12/17 21:46 Dose: 5,000 units Vancomycin HCl 1 gm/ Sodium (Chloride) 250 mls @ 165 mls/hr IV Q12H [facility] Stop: 01/10/18 13:59 Last Admin: 11/13/17 03:06 Dose: 165 mls/hr Insulin Aspart (Novolog Insulin Sliding Scale) 0 units SUBQ ACHS [facility] PRN Reason: Protocol Stop: 12/31/17 07:29 Last Admin: 11/13/17 08:47 Dose: 6 units Insulin Detemir (Levemir Insulin) 20 units SUBQ DAILY [facility] PRN Reason: Protocol Stop: 01/12/18 06:20 Last Admin: 11/13/17 08:47 Dose: 20 units Magnesium Hydroxide (Milk Of Magnesia) 30 ml PO HS PRN PRN Reason: Constipation Stop: 12/30/17 23:24 Metformin HCl (Glucophage) 1,000 mg PO DAILY [facility] Stop: 12/31/17 09:59 Last Admin: 11/12/17 08:58 Dose: 1,000 mg Metoprolol Succinate (Toprol Xl) 25 mg PO DAILY [facility] Stop: 12/30/17 23:24 Last Admin: 11/12/17 08:58 Dose: 25 mg Miscellaneous (Vte Chemical Prophylaxis Screen/ Admission) 1 ea [facility] PRN PRN PRN Reason: PROTOCOL Stop: 12/31/17 10:29 Miscellaneous (Vancomycin Iv Per Pharmacy) 1 ea MC PRN PRN PRN Reason: PROTOCOL Stop: 01/07/18 16:10 Olanzapine (Zyprexa Zydis) 10 mg PO BID [facility] PRN Reason: Protocol Stop: 01/05/18 07:53 Last Admin: 11/12/17 16:33 Dose: 10 mg Zolpidem Tartrate (Ambien) 5 mg PO HS PRN PRN Reason: insomnia Stop: 12/30/17 23:24 Last Admin: 11/03/17 19:55 Dose: 5 mg General: Alert, No acute distress HEENT: Atraumatic, PERRLA, EOMI Neck: Supple, JVD, +2 carotid pulse wo bruit Cardiovascular: Regular rate, Normal S1, Normal S2 Lungs: Clear to auscultation Abdomen: Bowel sounds, Soft Extremities: no Clubbing, no Cyanosis, no Edema Neurological: Sensation intact Skin: no Rash Psych/Mental Status: Other (psychosis) - Procedures Procedures: Procedures Procedure Code Date JEWEL MUSC/FASCIA 20 SQ CM/< 83776 10/12/17 EXCISION OF RIGHT HIP MUSCLE, OPEN APPROACH [id number] 10/12/17 INTRODUCTION OF SERUM/TOX/VACCINE INTO MUSCLE, PERC APPROACH [id number] 10/12/17 Assessment/Plan - Assessment Assessment: S/P KEN S/P electrolyte imbalance Acute decomp of Psychosis Type 2 DM MRSA, Yeast UTI - Plan Plan: Lab - Result Diagrams 11/01/17 06:48 Current Medications Acetaminophen (Tylenol) 650 mg PO Q6H PRN PRN Reason: mild to moderate pain Stop: 12/30/17 23:24 Acetaminophen/Hydrocodone Bitart ([place] 5mg/325mg) 1 tab PO Q6H PRN PRN Reason: Pain (Moderate) Stop: 12/30/17 23:24 Allopurinol (Zyloprim) 100 mg PO DAILY REPLACED BY [facility] Stop: 12/30/17 23:24 Last Admin: 11/01/17 10:54 Dose: 100 mg [place] Oil/Hungarian Balsam/Trypsin (Venelex) 1 appl TP DAILY REPLACED BY [facility] Stop: 12/30/17 23:24 Last Admin: 11/01/17 11:02 Dose: 1 appl Clonazepam (Klonopin) 1 mg PO BID I[facility]EL PRN Reason: Protocol Stop: 12/31/17 09:59 Famotidine (Pepcid) 20 mg PO BID REPLACED BY [facility] Stop: 12/30/17 23:24 Last Admin: 11/01/17 10:54 Dose: 20 mg Fluconazole (Diflucan) 100 mg PO DAILY REPLACED BY [facility] Stop: 12/30/17 23:24 Last Admin: 11/01/17 11:02 Dose: 100 mg Heparin Sodium (Porcine) (Heparin) 5,000 units SUBQ Q12HR [facility] PRN Reason: Protocol Stop: 12/30/17 23:24 Last Admin: 11/01/17 10:59 Dose: 5,000 units Levofloxacin (Levaquin Pb) 500 mg in 100 mls @ 100 mls/hr IV Q24H [facility] Stop: 12/31/17 11:59 Insulin Aspart (Novolog Insulin Sliding Scale) 0 units SUBQ ACHS [facility] PRN Reason: Protocol Stop: 12/30/17 23:24 Last Admin: 11/01/17 10:45 Dose: 2 units Insulin Aspart (Novolog Insulin Sliding Scale) 0 units SUBQ ACHS [facility] PRN Reason: Protocol Stop: 12/31/17 07:29 Insulin Detemir (Levemir Insulin) 18 units SUBQ DAILY [facility] PRN Reason: Protocol Stop: 12/30/17 23:24 Last Admin: 11/01/17 10:56 Dose: 18 units Lorazepam (Ativan) 0.5 mg PO Q6HR PRN; Protocol PRN Reason: agitation Stop: 12/30/17 23:24 Magnesium Hydroxide (Milk Of Magnesia) 30 ml PO HS PRN PRN Reason: Constipation Stop: 12/30/17 23:24 Metformin HCl (Glucophage) 1,000 mg PO DAILY [facility] Stop: 12/31/17 09:59 Metoprolol Succinate (Toprol Xl) 25 mg PO DAILY [facility] Stop: 12/30/17 23:24 Last Admin: 11/01/17 10:55 Dose: 25 mg Miscellaneous (Vte Chemical Prophylaxis Screen/ Admission) 1 ea [facility] PRN PRN PRN Reason: PROTOCOL Stop: 12/31/17 10:29 Olanzapine (Zyprexa Zydis) 5 mg PO DAILY [facility] PRN Reason: Protocol Stop: 12/31/17 09:59 Zolpidem Tartrate (Ambien) 5 mg PO HS PRN PRN Reason: insomnia Stop: 12/30/17 23:24 Lab - Result Diagrams 11/09/17 05:00 kidney fnc remain stable encourage po intake psych meds start Vanco W/ Diflucan awaiting placement Nutritional Asmnt/Malnutr-PDOC - Dietary Evaluation Malnutrition Findings (Please click <Entered> for more info): Nutritional Asmnt/Malnutrition Start: 11/05/17 16: 25 Text: Status: Complete Freq: Document 11/05/17 16:25 LCDEMIG (Rec: 11/05/17 16:31 DEMIG [email or web address]) Nutritional Asmnt/Malnutrition Patient General Information Nutritional Screening Moderate Risk Diagnosis dehydration Pertinent Medical Hx/Surgical Hx DM, dementia, depression, psychosis, schizophrenia, chronic renal insuff Subjective Information Pt is agitated, on 1:1 sitter. Per EMR, PO intake 25-75%, avg 50%. Current Diet Order/ Nutrition Support pureed, CCHO 60gm Pertinent Medications novolov, levemir, glucophage Pertinent Labs 11/03- POC 181-316 Nutritional Hx/Data Height 1.8 m Height (Calculated Centimeters) 180.3 Current Weight (lbs) 77.111 kg Weight (Calculated Kilograms) 77.1 Weight (Calculated Grams) 28567.7 [place] Body Weight 172 Body Mass Index (BMI) 23.7 Weight Status Approriate GI Symptoms GI Symptoms None Last BM 11/03 Difficult in: None Skin Integrity/Comment: pressure ulcer, decubitus Current %PO Fair (50-74%) Estimated Nutritional Goals BEE in Kcals: Using Current wt Calories/Kcals/Kg 25-30 Kcals Calculated 9713-5433 Protein: Using Current wt Protein g/k-1.2 Protein Calculated 77-92 Fluid: ml 1925-2310ml (1ml/kcal) Nutritional Problem 1. Problem Problem altered nutrition related lab values Etiology hx of DM Signs/Symptoms: glucose 169, POC 181-316 Malnutrition Alert Protein-Calorie Malnutrition N/A Is there a minimum of two criteria No selected? Query Text:Check all the applicable criteria. A minimum of two criteria are recommended for diagnosis of either severe or non-severe malnutrition. Intervention/Recommendation Comments 1. Continue with current diet as ordered. 2. Monitor PO intake, wt, labs and skin integrity 3. F/U as moderate risk in 3-5 days, 11/08-11/10 Expected Outcomes/Goals Expected Outcomes/Goals 1. PO intake to meet at least 75% of nutritional needs. 2. Wt stability, skin to remain intact, labs to approach WNL.
--- NOTE | 2017-11-13 13:53 | Infectious Disease Prog Note ---
Infectious Disease Subjective - Review of Systems Service Date: 11/13/17 Subjective: No fever Infectious Disease Objective - Results Result Diagrams: 11/13/17 07:00 11/13/17 07:00 Recent Labs: Laboratory Last Values WBC 10.2 Th/cmm (4.8-10.8) 11/13/17 07:00 RBC 4.18 Mil/cmm (3.80-5.80) 11/13/17 07:00 Hgb 12.5 gm/dL (12-16) 11/13/17 07:00 Hct 37.9 % (41.0-60) L 11/13/17 07:00 MCV 90.6 fl (80-99) 11/13/17 07:00 MCH 29.9 pg (27.0-31.0) 11/13/17 07:00 MCHC Differential 33.0 pg (28.0-36.0) 11/13/17 07:00 RDW 16.5 % (11.5-20.0) 11/13/17 07:00 Plt Count 283 Th/cmm (150-400) 11/13/17 07:00 MPV 8.0 fl 11/13/17 07:00 Neutrophils % 64.6 % (40.0-80.0) 11/13/17 07:00 Lymphocytes % 26.9 % (20.0-50.0) 11/13/17 07:00 Monocytes % 5.3 % (2.0-10.0) 11/13/17 07:00 Eosinophils % 2.8 % (0.0-5.0) 11/13/17 07:00 Basophils % 0.4 % (0.0-2.0) 11/13/17 07:00 PT 9.5 SECONDS (9.5-11.5) 11/05/17 21:35 INR 0.91 (0.5-1.4) 11/05/17 21:35 Sodium 132 mEq/L (136-145) L 11/13/17 07:00 Potassium 3.9 mEq/L (3.5-5.1) 11/13/17 07:00 Chloride 99 mEq/L (98-107) 11/13/17 07:00 Carbon Dioxide 23.2 mEq/L (21.0-31.0) 11/13/17 07:00 Anion Gap 13.7 (7.0-16.0) 11/13/17 07:00 BUN 10 mg/dL (7-25) 11/13/17 07:00 Creatinine 0.9 mg/dL (0.7-1.3) 11/13/17 07:00 Est GFR ( Amer) TNP 11/13/17 07:00 Est GFR (Non-Af Amer) TNP 11/13/17 07:00 BUN/Creatinine Ratio 11.1 11/13/17 07:00 Glucose 256 mg/dL (70-105) H 11/13/17 07:00 POC Glucose 265 MG/DL (70 - 105) H 11/13/17 06:18 Calcium 8.7 mg/dL (8.6-10.3) 11/13/17 07:00 Urine Source [place]RE [place] 11/11/17 21:30 Urine Color YELLOW 11/11/17 21:30 Urine Clarity HAZY (CLEAR) 11/11/17 21:30 Urine pH 5.5 (4.6 - 8.0) 11/11/17 21:30 Ur Specific [place] 1.010 (1.005-1.030) 11/11/17 21:30 Urine Protein NEGATIVE mg/dL (NEGATIVE) 11/11/17 21:30 Urine Glucose (UA) >=1000 mg/dL (NEGATIVE) H 11/11/17 21:30 Urine Ketones NEGATIVE mg/dL (NEGATIVE) 11/11/17 21:30 Urine Blood LARGE (NEGATIVE) H 11/11/17 21:30 Urine Nitrate NEGATIVE (NEGATIVE) 11/11/17 21:30 Urine Bilirubin NEGATIVE (NEGATIVE) 11/11/17 21:30 Urine Urobilinogen 0.2 E.U./dL (0.2 - 1.0) 11/11/17 21:30 Ur Leukocyte Esterase SMALL (NEGATIVE) H 11/11/17 21:30 Urine RBC 10-25 /hpf (0-5) H 11/11/17 21:30 Urine WBC 2-5 /hpf (0-5) 11/11/17 21:30 Ur Epithelial Cells OCCASIONAL /lpf (FEW) 11/11/17 21:30 Urine Bacteria FEW /hpf (NONE SEEN) 11/11/17 21:30 Urine Yeast FEW /hpf (NONE SEEN) H 11/11/17 21:30 Vancomycin Trough 13.4 ug/mL (10-20) 11/10/17 13:30 - Physical Exam Vitals and I&O: Vital Signs Temp 96.4 F 11/13/17 04:00 Pulse 70 11/13/17 04:00 Resp 18 11/13/17 08:00 BP 107/67 11/13/17 04:00 Pulse Ox 96 11/13/17 04:00 Intake & Output 11/12/17 11/13/17 11/13/17 18:59 06:59 18:59 Intake Total 250 1150 Output Total 2600 Balance 250 -1450 Weight (lbs) 77.111 kg 77.111 kg Intake: Intake, IV Amount 250 Vancomycin HCl 1 gm In 250 Sodium Chloride 0.9% 250 ml @ 165 mls/hr IV Q12H [facility] Rx#:[id number] Oral 900 Tube Feeding 250 Output: Urine 2600 Stool 0 Other: # Bowel Movements 0 Weight Source Bedscale Bedscale Active Medications: Current Medications Acetaminophen (Tylenol) 650 mg PO Q6H PRN PRN Reason: mild to moderate pain Stop: 12/30/17 23:24 Acetaminophen/Hydrocodone Bitart ([place] 5mg/325mg) 1 tab PO Q6H PRN PRN Reason: Pain (Moderate) Stop: 12/30/17 23:24 Last Admin: 11/11/17 16:56 Dose: 1 tab Allopurinol (Zyloprim) 100 mg PO DAILY [facility] Stop: 12/30/17 23:24 Last Admin: 11/12/17 08:58 Dose: 100 mg [place] Oil/[place] Balsam/Trypsin (Venelex) 1 appl TP DAILY [facility] Stop: 12/30/17 23:24 Last Admin: 11/12/17 10:59 Dose: Not Given Clonazepam (Klonopin) 1 mg PO BID [facility] PRN Reason: Protocol Stop: 12/31/17 09:59 Last Admin: 11/12/17 16:33 Dose: 1 mg Donepezil HCl (Aricept) 10 mg PO DAILY [facility] Stop: 01/12/18 08:00 Doxycycline Hyclate (Vibramycin) 100 mg PO Q12HR [facility] Stop: 01/11/18 08:59 Last Admin: 11/12/17 21:47 Dose: 100 mg Famotidine (Pepcid) 20 mg PO BID [facility] Stop: 12/30/17 23:24 Last Admin: 11/12/17 16:34 Dose: 20 mg Fluconazole (Diflucan) 100 mg PO DAILY [facility] Stop: 12/30/17 23:24 Last Admin: 11/12/17 08:58 Dose: 100 mg Heparin Sodium (Porcine) (Heparin) 5,000 units SUBQ Q12HR [facility] PRN Reason: Protocol Stop: 12/30/17 23:24 Last Admin: 11/12/17 21:46 Dose: 5,000 units Vancomycin HCl 1 gm/ Sodium (Chloride) 250 mls @ 165 mls/hr IV Q12H [facility] Stop: 01/10/18 13:59 Last Admin: 11/13/17 03:06 Dose: 165 mls/hr Insulin Aspart (Novolog Insulin Sliding Scale) 0 units SUBQ ACHS [facility] PRN Reason: Protocol Stop: 12/31/17 07:29 Last Admin: 11/13/17 08:47 Dose: 6 units Insulin Detemir (Levemir Insulin) 20 units SUBQ DAILY [facility] PRN Reason: Protocol Stop: 01/12/18 06:20 Last Admin: 11/13/17 08:47 Dose: 20 units Magnesium Hydroxide (Milk Of Magnesia) 30 ml PO HS PRN PRN Reason: Constipation Stop: 12/30/17 23:24 Metformin HCl (Glucophage) 1,000 mg PO DAILY [facility] Stop: 12/31/17 09:59 Last Admin: 11/12/17 08:58 Dose: 1,000 mg Metoprolol Succinate (Toprol Xl) 25 mg PO DAILY [facility] Stop: 12/30/17 23:24 Last Admin: 11/12/17 08:58 Dose: 25 mg Miscellaneous (Vte Chemical Prophylaxis Screen/ Admission) 1 ea [facility] PRN PRN PRN Reason: PROTOCOL Stop: 12/31/17 10:29 Miscellaneous (Vancomycin Iv Per Pharmacy) 1 ea MC PRN PRN PRN Reason: PROTOCOL Stop: 01/07/18 16:10 Olanzapine (Zyprexa Zydis) 10 mg PO BID [facility] PRN Reason: Protocol Stop: 01/05/18 07:53 Last Admin: 11/12/17 16:33 Dose: 10 mg Zolpidem Tartrate (Ambien) 5 mg PO HS PRN PRN Reason: insomnia Stop: 12/30/17 23:24 Last Admin: 11/03/17 19:55 Dose: 5 mg General: no acute distress, well developed, well nourished HEENT: atraumatic, normocephalic, PERRLA, EOMI Neck: supple, no thyromegaly Cardiovascular: S1S2, no regular Lungs: clear to auscultation bilaterally, clear to percussion Abdomen: soft, no tender Extremities: no cyanosis, no clubbing Neurological: awake, alert, oriented Skin: other (sacral wound.) - Procedures Procedures: Procedures Procedure Code Date JEWEL MUSC/FASCIA 20 SQ CM/< 07360 10/12/17 EXCISION OF RIGHT HIP MUSCLE, OPEN APPROACH [id number] 10/12/17 INTRODUCTION OF SERUM/TOX/VACCINE INTO MUSCLE, PERC APPROACH [id number] 10/12/17 Infectious Disease Assmt/Plan - Assessment Assessment: 1. Sacral decubitus ulcer. 2. UTI. Treated 3. Dementia. - Plan Plan: wound care. Nutritional Asmnt/Malnutr-PDOC - Dietary Evaluation Malnutrition Findings (Please click <Entered> for more info): Nutritional Asmnt/Malnutrition Start: 11/05/17 16: 25 Text: Status: Complete Freq: Document 11/05/17 16:25 [email or web address] (Rec: 11/05/17 16:31 [email or web address] Nutritional Asmnt/Malnutrition Patient General Information Nutritional Screening Moderate Risk Diagnosis dehydration Pertinent Medical Hx/Surgical Hx DM, dementia, depression, psychosis, schizophrenia, chronic renal insuff Subjective Information Pt is agitated, on 1:1 sitter. Per EMR, PO intake 25-75%, avg 50%. Current Diet Order/ Nutrition Support pureed, CCHO 60gm Pertinent Medications novolov, levemir, glucophage Pertinent Labs 11/03- POC 181-316 Nutritional Hx/Data Height 1.8 m Height (Calculated Centimeters) 180.3 Current Weight (lbs) 77.111 kg Weight (Calculated Kilograms) 77.1 Weight (Calculated Grams) 58304.7 [place] Body Weight 172 Body Mass Index (BMI) 23.7 Weight Status Approriate GI Symptoms GI Symptoms None Last BM 11/03 Difficult in: None Skin Integrity/Comment: pressure ulcer, decubitus Current %PO Fair (50-74%) Estimated Nutritional Goals BEE in Kcals: Using Current wt Calories/Kcals/Kg 25-30 Kcals Calculated 9896-6175 Protein: Using Current wt Protein g/k-1.2 Protein Calculated 77-92 Fluid: ml 1925-2310ml (1ml/kcal) Nutritional Problem 1. Problem Problem altered nutrition related lab values Etiology hx of DM Signs/Symptoms: glucose 169, POC 181-316 Malnutrition Alert Protein-Calorie Malnutrition N/A Is there a minimum of two criteria No selected? Query Text:Check all the applicable criteria. A minimum of two criteria are recommended for diagnosis of either severe or non-severe malnutrition. Intervention/Recommendation Comments 1. Continue with current diet as ordered. 2. Monitor PO intake, wt, labs and skin integrity 3. F/U as moderate risk in 3-5 days, 11/08-11/10 Expected Outcomes/Goals Expected Outcomes/Goals 1. PO intake to meet at least 75% of nutritional needs. 2. Wt stability, skin to remain intact, labs to approach WNL.
[2017-11-13 20:08] LABS: A1C % 8.8 % (4.0-6.0)
[2017-11-14] MEDS: Hydrocodone/APAP 5mg/325mg Tab PO PRN (05:34)
--- NOTE | 2017-11-14 07:54 | General Progress Note ---
Subjective - Review of Systems Service Date: 11/14/17 Subjective: Patient resting comfortably in bed. no acute distress. In good spirits today. pleasant. cooperative today. eating well. Blood Sugars improving. Will adjust dosage. Objective - Results Result Diagrams: 11/13/17 07:00 11/13/17 07:00 Recent Labs: Laboratory Last Values WBC 10.2 Th/cmm (4.8-10.8) 11/13/17 07:00 RBC 4.18 Mil/cmm (3.80-5.80) 11/13/17 07:00 Hgb 12.5 gm/dL (12-16) 11/13/17 07:00 Hct 37.9 % (41.0-60) L 11/13/17 07:00 MCV 90.6 fl (80-99) 11/13/17 07:00 MCH 29.9 pg (27.0-31.0) 11/13/17 07:00 MCHC Differential 33.0 pg (28.0-36.0) 11/13/17 07:00 RDW 16.5 % (11.5-20.0) 11/13/17 07:00 Plt Count 283 Th/cmm (150-400) 11/13/17 07:00 MPV 8.0 fl 11/13/17 07:00 Neutrophils % 64.6 % (40.0-80.0) 11/13/17 07:00 Lymphocytes % 26.9 % (20.0-50.0) 11/13/17 07:00 Monocytes % 5.3 % (2.0-10.0) 11/13/17 07:00 Eosinophils % 2.8 % (0.0-5.0) 11/13/17 07:00 Basophils % 0.4 % (0.0-2.0) 11/13/17 07:00 PT 9.5 SECONDS (9.5-11.5) 11/05/17 21:35 INR 0.91 (0.5-1.4) 11/05/17 21:35 Sodium 132 mEq/L (136-145) L 11/13/17 07:00 Potassium 3.9 mEq/L (3.5-5.1) 11/13/17 07:00 Chloride 99 mEq/L (98-107) 11/13/17 07:00 Carbon Dioxide 23.2 mEq/L (21.0-31.0) 11/13/17 07:00 Anion Gap 13.7 (7.0-16.0) 11/13/17 07:00 BUN 10 mg/dL (7-25) 11/13/17 07:00 Creatinine 0.9 mg/dL (0.7-1.3) 11/13/17 07:00 Est GFR ( Amer) TNP 11/13/17 07:00 Est GFR (Non-Af Amer) TNP 11/13/17 07:00 BUN/Creatinine Ratio 11.1 11/13/17 07:00 Glucose 256 mg/dL (70-105) H 11/13/17 07:00 POC Glucose 192 MG/DL (70 - 105) H 11/13/17 17:58 Hemoglobin A1c % 8.8 % (4.0-6.0) H 11/13/17 07:00 Calcium 8.7 mg/dL (8.6-10.3) 11/13/17 07:00 Urine Source ANDRE PORT 11/11/17 21:30 Urine Color YELLOW 11/11/17 21:30 Urine Clarity HAZY (CLEAR) 11/11/17 21:30 Urine pH 5.5 (4.6 - 8.0) 11/11/17 21:30 Ur Specific [place] 1.010 (1.005-1.030) 11/11/17 21:30 Urine Protein NEGATIVE mg/dL (NEGATIVE) 11/11/17 21:30 Urine Glucose (UA) >=1000 mg/dL (NEGATIVE) H 11/11/17 21:30 Urine Ketones NEGATIVE mg/dL (NEGATIVE) 11/11/17 21:30 Urine Blood LARGE (NEGATIVE) H 11/11/17 21:30 Urine Nitrate NEGATIVE (NEGATIVE) 11/11/17 21:30 Urine Bilirubin NEGATIVE (NEGATIVE) 11/11/17 21:30 Urine Urobilinogen 0.2 E.U./dL (0.2 - 1.0) 11/11/17 21:30 Ur Leukocyte Esterase SMALL (NEGATIVE) H 11/11/17 21:30 Urine RBC 10-25 /hpf (0-5) H 11/11/17 21:30 Urine WBC 2-5 /hpf (0-5) 11/11/17 21:30 Ur Epithelial Cells OCCASIONAL /lpf (FEW) 11/11/17 21:30 Urine Bacteria FEW /hpf (NONE SEEN) 11/11/17 21:30 Urine Yeast FEW /hpf (NONE SEEN) H 11/11/17 21:30 Vancomycin Trough 13.4 ug/mL (10-20) 11/10/17 13:30 - Physical Exam Vitals and I&O: Vital Signs Temp 98.7 F 11/13/17 20:00 Pulse 70 11/13/17 20:00 Resp 18 11/13/17 20:00 BP 107/59 11/13/17 20:00 Pulse Ox 97 11/13/17 20:00 Intake & Output 11/13/17 11/14/17 11/14/17 18:59 06:59 18:59 Intake Total 250 250 200 Balance 250 250 200 Weight (lbs) 77.111 kg 77.111 kg Intake: Intake, IV Amount 250 250 Vancomycin HCl 1 gm In 250 250 Sodium Chloride 0.9% 250 ml @ 165 mls/hr IV Q12H [facility] Rx#:[id number] Oral 200 Other: # Voids 1 # Bowel Movements 0 Weight Source Bedscale Bedscale Active Medications: Current Medications Acetaminophen (Tylenol) 650 mg PO Q6H PRN PRN Reason: mild to moderate pain Stop: 12/30/17 23:24 Acetaminophen/Hydrocodone Bitart ([place] 5mg/325mg) 1 tab PO Q6H PRN PRN Reason: Pain (Moderate) Stop: 12/30/17 23:24 Last Admin: 11/14/17 05:34 Dose: 1 tab Allopurinol (Zyloprim) 100 mg PO DAILY [facility] Stop: 12/30/17 23:24 Last Admin: 11/13/17 11:00 Dose: Not Given [place] Oil/[place] Balsam/Trypsin (Venelex) 1 appl TP DAILY [facility] Stop: 12/30/17 23:24 Last Admin: 11/13/17 11:00 Dose: Not Given Clonazepam (Klonopin) 1 mg PO BID [facility] PRN Reason: Protocol Stop: 12/31/17 09:59 Last Admin: 11/13/17 18:00 Dose: 1 mg Donepezil HCl (Aricept) 10 mg PO DAILY [facility] Stop: 01/12/18 08:00 Last Admin: 11/13/17 11:00 Dose: Not Given Doxycycline Hyclate (Vibramycin) 100 mg PO Q12HR [facility] Stop: 01/11/18 08:59 Last Admin: 11/13/17 21:26 Dose: 100 mg Famotidine (Pepcid) 20 mg PO BID [facility] Stop: 12/30/17 23:24 Last Admin: 11/13/17 18:00 Dose: 20 mg Fluconazole (Diflucan) 100 mg PO DAILY [facility] Stop: 12/30/17 23:24 Last Admin: 11/13/17 11:00 Dose: Not Given Heparin Sodium (Porcine) (Heparin) 5,000 units SUBQ Q12HR [facility] PRN Reason: Protocol Stop: 12/30/17 23:24 Last Admin: 11/13/17 21:36 Dose: Not Given Vancomycin HCl 1 gm/ Sodium (Chloride) 250 mls @ 165 mls/hr IV Q12H [facility] Stop: 01/10/18 13:59 Last Admin: 11/14/17 01:20 Dose: 165 mls/hr Insulin Aspart (Novolog Insulin Sliding Scale) 0 units SUBQ ACHS [facility] PRN Reason: Protocol Stop: 12/31/17 07:29 Last Admin: 11/13/17 21:36 Dose: Not Given Insulin Detemir (Levemir Insulin) 20 units SUBQ DAILY [facility] PRN Reason: Protocol Stop: 01/12/18 06:20 Last Admin: 11/13/17 08:47 Dose: 20 units Magnesium Hydroxide (Milk Of Magnesia) 30 ml PO PRN PRN Reason: Constipation Stop: 12/30/17 23:24 Metformin HCl (Glucophage) 1,000 mg PO DAILY [facility] Stop: 12/31/17 09:59 Last Admin: 11/13/17 11:00 Dose: Not Given Metoprolol Succinate (Toprol Xl) 25 mg PO DAILY [facility] Stop: 12/30/17 23:24 Last Admin: 11/13/17 11:00 Dose: Not Given Miscellaneous (Vte Chemical Prophylaxis Screen/ Admission) 1 ea [facility] PRN PRN PRN Reason: PROTOCOL Stop: 12/31/17 10:29 Miscellaneous (Vancomycin Iv Per Pharmacy) 1 ea [facility] PRN PRN PRN Reason: PROTOCOL Stop: 01/07/18 16:10 Olanzapine (Zyprexa Zydis) 10 mg PO BID [facility] PRN Reason: Protocol Stop: 01/05/18 07:53 Last Admin: 11/13/17 18:00 Dose: 10 mg Zolpidem Tartrate (Ambien) 5 mg PO HS PRN PRN Reason: insomnia Stop: 12/30/17 23:24 Last Admin: 11/03/17 19:55 Dose: 5 mg General: Alert, No acute distress HEENT: Atraumatic, PERRLA, EOMI Neck: Supple, JVD, +2 carotid pulse wo bruit Cardiovascular: Regular rate, Normal S1, Normal S2 Lungs: Clear to auscultation Abdomen: Bowel sounds, Soft Extremities: no Clubbing, no Cyanosis, no Edema Neurological: Sensation intact Skin: no Rash Psych/Mental Status: Other (psychosis) - Procedures Procedures: Procedures Procedure Code Date JEWEL MUSC/FASCIA 20 SQ CM/< 19236 10/12/17 EXCISION OF RIGHT HIP MUSCLE, OPEN APPROACH [id number] 10/12/17 INTRODUCTION OF SERUM/TOX/VACCINE INTO MUSCLE, PERC APPROACH [id number] 10/12/17 Assessment/Plan - Assessment Assessment: psychosis dementia Alzheimer's dementia diabetes mellitus not controlled. s/p wound debridement of sacral decubiti UTI hyperglycemia - Plan Plan: continue current medications. will add doxycyline PO for hospice eval Nutritional Asmnt/Malnutr-PDOC - Dietary Evaluation Malnutrition Findings (Please click <Entered> for more info): Nutritional Asmnt/Malnutrition Start: 11/05/17 16: 25 Text: Status: Complete Freq: Document 11/05/17 16:25 LCHENG (Rec: 11/05/17 16:31 LCDEMIG [place] [id number]) Nutritional Asmnt/Malnutrition Patient General Information Nutritional Screening Moderate Risk Diagnosis dehydration Pertinent Medical Hx/Surgical Hx DM, dementia, depression, psychosis, schizophrenia, chronic renal insuff Subjective Information Pt is agitated, on 1:1 sitter. Per EMR, PO intake 25-75%, avg 50%. Current Diet Order/ Nutrition Support pureed, CCHO 60gm Pertinent Medications novolov, levemir, glucophage Pertinent Labs POC 181-316 Nutritional Hx/Data Height 1.8 m Height (Calculated Centimeters) 180.3 Current Weight (lbs) 77.111 kg Weight (Calculated Kilograms) 77.1 Weight (Calculated Grams) 11818.7 [place] Body Weight 172 Body Mass Index (BMI) 23.7 Weight Status Approriate GI Symptoms GI Symptoms None Last BM 11/03 Difficult in: None Skin Integrity/Comment: pressure ulcer, decubitus Current %PO Fair (50-74%) Estimated Nutritional Goals BEE in Kcals: Using Current wt Calories/Kcals/Kg 25-30 Kcals Calculated 3622-0297 Protein: Using Current wt Protein g/k-1.2 Protein Calculated 77-92 Fluid: ml 1925-2310ml (1ml/kcal) Nutritional Problem 1. Problem Problem altered nutrition related lab values Etiology hx of DM Signs/Symptoms: glucose 169, POC 181-316 Malnutrition Alert Protein-Calorie Malnutrition N/A Is there a minimum of two criteria No selected? Query Text:Check all the applicable criteria. A minimum of two criteria are recommended for diagnosis of either severe or non-severe malnutrition. Intervention/Recommendation Comments 1. Continue with current diet as ordered. 2. Monitor PO intake, wt, labs and skin integrity 3. F/U as moderate risk in 3-5 days, 11/08-11/10 Expected Outcomes/Goals Expected Outcomes/Goals 1. PO intake to meet at least 75% of nutritional needs. 2. Wt stability, skin to remain intact, labs to approach WNL.
[2017-11-14] MEDS: INSULIN ASPART SLIDING SCALE 100 UNITS/ML UNIT SUBQ SCH ×4 (07:58→20:12)
[2017-11-14] MEDS: OLANZapine 5 mg Oral Disintegrating Tab PO SCH ×2 (09:10→16:35)
[2017-11-14] MEDS: Venelex 60gm Tube TP SCH (09:12)
[2017-11-14] MEDS: Insulin Detemir 100 units/mL 10mL Vial SUBQ SCH (09:48)
--- NOTE | 2017-11-14 13:05 | General Progress Note ---
Subjective - Review of Systems Service Date: 11/14/17 Subjective: lying in bed, more friendly, cooperative, eating lunch Objective - Results Result Diagrams: 11/13/17 07:00 11/13/17 07:00 Recent Labs: Laboratory Last Values WBC 10.2 Th/cmm (4.8-10.8) 11/13/17 07:00 RBC 4.18 Mil/cmm (3.80-5.80) 11/13/17 07:00 Hgb 12.5 gm/dL (12-16) 11/13/17 07:00 Hct 37.9 % (41.0-60) L 11/13/17 07:00 MCV 90.6 fl (80-99) 11/13/17 07:00 MCH 29.9 pg (27.0-31.0) 11/13/17 07:00 MCHC Differential 33.0 pg (28.0-36.0) 11/13/17 07:00 RDW 16.5 % (11.5-20.0) 11/13/17 07:00 Plt Count 283 Th/cmm (150-400) 11/13/17 07:00 MPV 8.0 fl 11/13/17 07:00 Neutrophils % 64.6 % (40.0-80.0) 11/13/17 07:00 Lymphocytes % 26.9 % (20.0-50.0) 11/13/17 07:00 Monocytes % 5.3 % (2.0-10.0) 11/13/17 07:00 Eosinophils % 2.8 % (0.0-5.0) 11/13/17 07:00 Basophils % 0.4 % (0.0-2.0) 11/13/17 07:00 PT 9.5 SECONDS (9.5-11.5) 11/05/17 21:35 INR 0.91 (0.5-1.4) 11/05/17 21:35 Sodium 132 mEq/L (136-145) L 11/13/17 07:00 Potassium 3.9 mEq/L (3.5-5.1) 11/13/17 07:00 Chloride 99 mEq/L (98-107) 11/13/17 07:00 Carbon Dioxide 23.2 mEq/L (21.0-31.0) 11/13/17 07:00 Anion Gap 13.7 (7.0-16.0) 11/13/17 07:00 BUN 10 mg/dL (7-25) 11/13/17 07:00 Creatinine 0.9 mg/dL (0.7-1.3) 11/13/17 07:00 Est GFR ( Amer) TNP 11/13/17 07:00 Est GFR (Non-Af Amer) TNP 11/13/17 07:00 BUN/Creatinine Ratio 11.1 11/13/17 07:00 Glucose 256 mg/dL (70-105) H 11/13/17 07:00 POC Glucose 305 MG/DL (70 - 105) H 11/14/17 12:04 Hemoglobin A1c % 8.8 % (4.0-6.0) H 11/13/17 07:00 Calcium 8.7 mg/dL (8.6-10.3) 11/13/17 07:00 Urine Source ANDRE [place] 11/11/17 21:30 Urine Color YELLOW 11/11/17 21:30 Urine Clarity HAZY (CLEAR) 11/11/17 21:30 Urine pH 5.5 (4.6 - 8.0) 11/11/17 21:30 Ur Specific [place] 1.010 (1.005-1.030) 11/11/17 21:30 Urine Protein NEGATIVE mg/dL (NEGATIVE) 11/11/17 21:30 Urine Glucose (UA) >=1000 mg/dL (NEGATIVE) H 11/11/17 21:30 Urine Ketones NEGATIVE mg/dL (NEGATIVE) 11/11/17 21:30 Urine Blood LARGE (NEGATIVE) H 11/11/17 21:30 Urine Nitrate NEGATIVE (NEGATIVE) 11/11/17 21:30 Urine Bilirubin NEGATIVE (NEGATIVE) 11/11/17 21:30 Urine Urobilinogen 0.2 E.U./dL (0.2 - 1.0) 11/11/17 21:30 Ur Leukocyte Esterase SMALL (NEGATIVE) H 11/11/17 21:30 Urine RBC 10-25 /hpf (0-5) H 11/11/17 21:30 Urine WBC 2-5 /hpf (0-5) 11/11/17 21:30 Ur Epithelial Cells OCCASIONAL /lpf (FEW) 11/11/17 21:30 Urine Bacteria FEW /hpf (NONE SEEN) 11/11/17 21:30 Urine Yeast FEW /hpf (NONE SEEN) H 11/11/17 21:30 Vancomycin Trough 13.4 ug/mL (10-20) 11/10/17 13:30 - Physical Exam Vitals and I&O: Vital Signs Temp 98.7 F 11/13/17 20:00 Pulse 91 11/14/17 09:09 Resp 18 11/13/17 20:00 BP 136/79 11/14/17 09:09 Pulse Ox 97 11/13/17 20:00 Intake & Output 11/13/17 11/14/17 11/14/17 18:59 06:59 18:59 Intake Total 250 250 200 Balance 250 250 200 Weight (lbs) 77.111 kg 77.111 kg Intake: Intake, IV Amount 250 250 Vancomycin HCl 1 gm In 250 250 Sodium Chloride 0.9% 250 ml @ 165 mls/hr IV Q12H [facility] Rx#:[id number] Oral 200 Other: # Voids 1 # Bowel Movements 0 Weight Source Bedscale Bedscale Active Medications: Current Medications Acetaminophen (Tylenol) 650 mg PO Q6H PRN PRN Reason: mild to moderate pain Stop: 12/30/17 23:24 Acetaminophen/Hydrocodone Bitart ([place] 5mg/325mg) 1 tab PO Q6H PRN PRN Reason: Pain (Moderate) Stop: 12/30/17 23:24 Last Admin: 11/14/17 05:34 Dose: 1 tab Allopurinol (Zyloprim) 100 mg PO DAILY [facility] Stop: 12/30/17 23:24 Last Admin: 11/14/17 09:05 Dose: 100 mg [place] Oil/[place] Balsam/Trypsin (Venelex) 1 appl TP DAILY [facility] Stop: 12/30/17 23:24 Last Admin: 11/14/17 09:12 Dose: Not Given Clonazepam (Klonopin) 1 mg PO BID [facility] PRN Reason: Protocol Stop: 12/31/17 09:59 Last Admin: 11/14/17 09:05 Dose: 1 mg Donepezil HCl (Aricept) 10 mg PO DAILY [facility] Stop: 01/12/18 08:00 Last Admin: 11/14/17 09:05 Dose: 10 mg Doxycycline Hyclate (Vibramycin) 100 mg PO Q12HR [facility] Stop: 01/11/18 08:59 Last Admin: 11/14/17 09:05 Dose: 100 mg Famotidine (Pepcid) 20 mg PO BID [facility] Stop: 12/30/17 23:24 Last Admin: 11/14/17 09:05 Dose: 20 mg Fluconazole (Diflucan) 100 mg PO DAILY [facility] Stop: 12/30/17 23:24 Last Admin: 11/14/17 09:05 Dose: 100 mg Heparin Sodium (Porcine) (Heparin) 5,000 units SUBQ Q12HR [facility] PRN Reason: Protocol Stop: 12/30/17 23:24 Last Admin: 11/14/17 09:12 Dose: Not Given Vancomycin HCl 1 gm/ Sodium (Chloride) 250 mls @ 165 mls/hr IV Q12H [facility] Stop: 01/10/18 13:59 Last Admin: 11/14/17 01:20 Dose: 165 mls/hr Insulin Aspart (Novolog Insulin Sliding Scale) 0 units SUBQ ACHS [facility] PRN Reason: Protocol Stop: 12/31/17 07:29 Last Admin: 11/14/17 12:12 Dose: 8 units Insulin Detemir (Levemir Insulin) 20 units SUBQ DAILY [facility] PRN Reason: Protocol Stop: 01/12/18 06:20 Last Admin: 11/14/17 09:48 Dose: Not Given Magnesium Hydroxide (Milk Of Magnesia) 30 ml PO HS PRN PRN Reason: Constipation Stop: 12/30/17 23:24 Metformin HCl (Glucophage) 1,000 mg PO DAILY [facility] Stop: 12/31/17 09:59 Last Admin: 11/14/17 09:09 Dose: 1,000 mg Metoprolol Succinate (Toprol Xl) 25 mg PO DAILY [facility] Stop: 12/30/17 23:24 Last Admin: 11/14/17 09:09 Dose: 25 mg Miscellaneous (Vte Chemical Prophylaxis Screen/ Admission) 1 ea [facility] PRN PRN PRN Reason: PROTOCOL Stop: 12/31/17 10:29 Miscellaneous (Vancomycin Iv Per Pharmacy) 1 ea MC PRN PRN PRN Reason: PROTOCOL Stop: 01/07/18 16:10 Olanzapine (Zyprexa Zydis) 10 mg PO BID [facility] PRN Reason: Protocol Stop: 01/05/18 07:53 Last Admin: 11/14/17 09:10 Dose: 10 mg Zolpidem Tartrate (Ambien) 5 mg PO HS PRN PRN Reason: insomnia Stop: 12/30/17 23:24 Last Admin: 11/03/17 19:55 Dose: 5 mg General: Alert, No acute distress HEENT: Atraumatic, PERRLA, EOMI Neck: Supple, JVD, +2 carotid pulse wo bruit Cardiovascular: Regular rate, Normal S1, Normal S2 Lungs: Clear to auscultation Abdomen: Bowel sounds, Soft Extremities: no Clubbing, no Cyanosis, no Edema Neurological: Sensation intact Skin: no Rash Psych/Mental Status: Other (psychosis) - Procedures Procedures: Procedures Procedure Code Date JEWEL MUSC/FASCIA 20 SQ CM/< 28314 10/12/17 EXCISION OF RIGHT HIP MUSCLE, OPEN APPROACH [id number] 10/12/17 INTRODUCTION OF SERUM/TOX/VACCINE INTO MUSCLE, PERC APPROACH [id number] 10/12/17 Assessment/Plan - Assessment Assessment: S/P KEN S/P electrolyte imbalance Acute decomp of Psychosis Type 2 DM MRSA, Yeast UTI - Plan Plan: Lab - Result Diagrams 11/01/17 06:48 Current Medications Acetaminophen (Tylenol) 650 mg PO Q6H PRN PRN Reason: mild to moderate pain Stop: 12/30/17 23:24 Acetaminophen/Hydrocodone Bitart ([place] 5mg/325mg) 1 tab PO Q6H PRN PRN Reason: Pain (Moderate) Stop: 12/30/17 23:24 Allopurinol (Zyloprim) 100 mg PO DAILY [facility] Stop: 12/30/17 23:24 Last Admin: 11/01/17 10:54 Dose: 100 mg [place] Oil/[place] Balsam/Trypsin (Venelex) 1 appl TP DAILY [facility] Stop: 12/30/17 23:24 Last Admin: 11/01/17 11:02 Dose: 1 appl Clonazepam (Klonopin) 1 mg PO BID [facility] PRN Reason: Protocol Stop: 12/31/17 09:59 Famotidine (Pepcid) 20 mg PO BID [facility] Stop: 12/30/17 23:24 Last Admin: 11/01/17 10:54 Dose: 20 mg Fluconazole (Diflucan) 100 mg PO DAILY [facility] Stop: 12/30/17 23:24 Last Admin: 11/01/17 11:02 Dose: 100 mg Heparin Sodium (Porcine) (Heparin) 5,000 units SUBQ Q12HR [facility] PRN Reason: Protocol Stop: 12/30/17 23:24 Last Admin: 11/01/17 10:59 Dose: 5,000 units Levofloxacin (Levaquin Pb) 500 mg in 100 mls @ 100 mls/hr IV Q24H [facility] Stop: 12/31/17 11:59 Insulin Aspart (Novolog Insulin Sliding Scale) 0 units SUBQ ACHS [facility] PRN Reason: Protocol Stop: 12/30/17 23:24 Last Admin: 11/01/17 10:45 Dose: 2 units Insulin Aspart (Novolog Insulin Sliding Scale) 0 units SUBQ ACHS [facility] PRN Reason: Protocol Stop: 12/31/17 07:29 Insulin Detemir (Levemir Insulin) 18 units SUBQ DAILY [facility] PRN Reason: Protocol Stop: 12/30/17 23:24 Last Admin: 11/01/17 10:56 Dose: 18 units Lorazepam (Ativan) 0.5 mg PO Q6HR PRN; Protocol PRN Reason: agitation Stop: 12/30/17 23:24 Magnesium Hydroxide (Milk Of Magnesia) 30 ml PO HS PRN PRN Reason: Constipation Stop: 12/30/17 23:24 Metformin HCl (Glucophage) 1,000 mg PO DAILY [facility] Stop: 12/31/17 09:59 Metoprolol Succinate (Toprol Xl) 25 mg PO DAILY [facility] Stop: 12/30/17 23:24 Last Admin: 11/01/17 10:55 Dose: 25 mg Miscellaneous (Vte Chemical Prophylaxis Screen/ Admission) 1 ea [facility] PRN PRN PRN Reason: PROTOCOL Stop: 12/31/17 10:29 Olanzapine (Zyprexa Zydis) 5 mg PO DAILY [facility] PRN Reason: Protocol Stop: 12/31/17 09:59 Zolpidem Tartrate (Ambien) 5 mg PO HS PRN PRN Reason: insomnia Stop: 12/30/17 23:24 Lab - Result Diagrams 11/09/17 05:00 kidney fnc remain stable encourage po intake psych meds continueVanco W/ Diflucan awaiting placement Nutritional Asmnt/Malnutr-PDOC - Dietary Evaluation Malnutrition Findings (Please click <Entered> for more info): Nutritional Asmnt/Malnutrition Start: 11/05/17 16: 25 Text: Status: Complete Freq: Document 11/05/17 16:25 GREY (Rec: 11/05/17 16:31 GREY [email or web address]) Nutritional Asmnt/Malnutrition Patient General Information Nutritional Screening Moderate Risk Diagnosis dehydration Pertinent Medical Hx/Surgical Hx DM, dementia, depression, psychosis, schizophrenia, chronic renal insuff Subjective Information Pt is agitated, on 1:1 sitter. Per EMR, PO intake 25-75%, avg 50%. Current Diet Order/ Nutrition Support pureed, CCHO 60gm Pertinent Medications novolov, levemir, glucophage Pertinent Labs 11/03- POC 181-316 Nutritional Hx/Data Height 1.8 m Height (Calculated Centimeters) 180.3 Current Weight (lbs) 77.111 kg Weight (Calculated Kilograms) 77.1 Weight (Calculated Grams) 72289.7 [place] Body Weight 172 Body Mass Index (BMI) 23.7 Weight Status Approriate GI Symptoms GI Symptoms None Last BM 11/03 Difficult in: None Skin Integrity/Comment: pressure ulcer, decubitus Current %PO Fair (50-74%) Estimated Nutritional Goals BEE in Kcals: Using Current wt Calories/Kcals/Kg 25-30 Kcals Calculated 1253-3153 Protein: Using Current wt Protein g/k-1.2 Protein Calculated 77-92 Fluid: ml 1925-2310ml (1ml/kcal) Nutritional Problem 1. Problem Problem altered nutrition related lab values Etiology hx of DM Signs/Symptoms: glucose 169, POC 181-316 Malnutrition Alert Protein-Calorie Malnutrition N/A Is there a minimum of two criteria No selected? Query Text:Check all the applicable criteria. A minimum of two criteria are recommended for diagnosis of either severe or non-severe malnutrition. Intervention/Recommendation Comments 1. Continue with current diet as ordered. 2. Monitor PO intake, wt, labs and skin integrity 3. F/U as moderate risk in 3-5 days, 11/08-11/10 Expected Outcomes/Goals Expected Outcomes/Goals 1. PO intake to meet at least 75% of nutritional needs. 2. Wt stability, skin to remain intact, labs to approach WNL.
--- NOTE | 2017-11-14 14:16 | Infectious Disease Prog Note ---
Infectious Disease Subjective - Review of Systems Service Date: 11/14/17 Subjective: No fever Infectious Disease Objective - Results Result Diagrams: 11/13/17 07:00 11/13/17 07:00 Recent Labs: Laboratory Last Values WBC 10.2 Th/cmm (4.8-10.8) 11/13/17 07:00 RBC 4.18 Mil/cmm (3.80-5.80) 11/13/17 07:00 Hgb 12.5 gm/dL (12-16) 11/13/17 07:00 Hct 37.9 % (41.0-60) L 11/13/17 07:00 MCV 90.6 fl (80-99) 11/13/17 07:00 MCH 29.9 pg (27.0-31.0) 11/13/17 07:00 MCHC Differential 33.0 pg (28.0-36.0) 11/13/17 07:00 RDW 16.5 % (11.5-20.0) 11/13/17 07:00 Plt Count 283 Th/cmm (150-400) 11/13/17 07:00 MPV 8.0 fl 11/13/17 07:00 Neutrophils % 64.6 % (40.0-80.0) 11/13/17 07:00 Lymphocytes % 26.9 % (20.0-50.0) 11/13/17 07:00 Monocytes % 5.3 % (2.0-10.0) 11/13/17 07:00 Eosinophils % 2.8 % (0.0-5.0) 11/13/17 07:00 Basophils % 0.4 % (0.0-2.0) 11/13/17 07:00 PT 9.5 SECONDS (9.5-11.5) 11/05/17 21:35 INR 0.91 (0.5-1.4) 11/05/17 21:35 Sodium 132 mEq/L (136-145) L 11/13/17 07:00 Potassium 3.9 mEq/L (3.5-5.1) 11/13/17 07:00 Chloride 99 mEq/L (98-107) 11/13/17 07:00 Carbon Dioxide 23.2 mEq/L (21.0-31.0) 11/13/17 07:00 Anion Gap 13.7 (7.0-16.0) 11/13/17 07:00 BUN 10 mg/dL (7-25) 11/13/17 07:00 Creatinine 0.9 mg/dL (0.7-1.3) 11/13/17 07:00 Est GFR ( Amer) TNP 11/13/17 07:00 Est GFR (Non-Af Amer) TNP 11/13/17 07:00 BUN/Creatinine Ratio 11.1 11/13/17 07:00 Glucose 256 mg/dL (70-105) H 11/13/17 07:00 POC Glucose 305 MG/DL (70 - 105) H 11/14/17 12:04 Hemoglobin A1c % 8.8 % (4.0-6.0) H 11/13/17 07:00 Calcium 8.7 mg/dL (8.6-10.3) 11/13/17 07:00 Urine Source ANDRE PORT 11/11/17 21:30 Urine Color YELLOW 11/11/17 21:30 Urine Clarity HAZY (CLEAR) 11/11/17 21:30 Urine pH 5.5 (4.6 - 8.0) 11/11/17 21:30 Ur Specific [place] 1.010 (1.005-1.030) 11/11/17 21:30 Urine Protein NEGATIVE mg/dL (NEGATIVE) 11/11/17 21:30 Urine Glucose (UA) >=1000 mg/dL (NEGATIVE) H 11/11/17 21:30 Urine Ketones NEGATIVE mg/dL (NEGATIVE) 11/11/17 21:30 Urine Blood LARGE (NEGATIVE) H 11/11/17 21:30 Urine Nitrate NEGATIVE (NEGATIVE) 11/11/17 21:30 Urine Bilirubin NEGATIVE (NEGATIVE) 11/11/17 21:30 Urine Urobilinogen 0.2 E.U./dL (0.2 - 1.0) 11/11/17 21:30 Ur Leukocyte Esterase SMALL (NEGATIVE) H 11/11/17 21:30 Urine RBC 10-25 /hpf (0-5) H 11/11/17 21:30 Urine WBC 2-5 /hpf (0-5) 11/11/17 21:30 Ur Epithelial Cells OCCASIONAL /lpf (FEW) 11/11/17 21:30 Urine Bacteria FEW /hpf (NONE SEEN) 11/11/17 21:30 Urine Yeast FEW /hpf (NONE SEEN) H 11/11/17 21:30 Vancomycin Trough 13.4 ug/mL (10-20) 11/10/17 13:30 - Physical Exam Vitals and I&O: Vital Signs Temp 98.7 F 11/13/17 20:00 Pulse 91 11/14/17 09:09 Resp 18 11/13/17 20:00 BP 136/79 11/14/17 09:09 Pulse Ox 97 11/13/17 20:00 Intake & Output 11/13/17 11/14/17 11/14/17 18:59 06:59 18:59 Intake Total 250 500 200 Balance 250 500 200 Weight (lbs) 77.111 kg 77.111 kg Intake: Intake, IV Amount 250 500 Vancomycin HCl 1 gm In 250 500 Sodium Chloride 0.9% 250 ml @ 165 mls/hr IV Q12H [facility] Rx#:[id number] Oral 200 Other: # Voids 1 # Bowel Movements 0 Weight Source Bedscale Bedscale Active Medications: Current Medications Acetaminophen (Tylenol) 650 mg PO Q6H PRN PRN Reason: mild to moderate pain Stop: 12/30/17 23:24 Acetaminophen/Hydrocodone Bitart ([place] 5mg/325mg) 1 tab PO Q6H PRN PRN Reason: Pain (Moderate) Stop: 12/30/17 23:24 Last Admin: 11/14/17 05:34 Dose: 1 tab Allopurinol (Zyloprim) 100 mg PO DAILY [facility] Stop: 12/30/17 23:24 Last Admin: 11/14/17 09:05 Dose: 100 mg [place] Oil/[place] Balsam/Trypsin (Venelex) 1 appl TP DAILY [facility] Stop: 12/30/17 23:24 Last Admin: 11/14/17 09:12 Dose: Not Given Clonazepam (Klonopin) 1 mg PO BID [facility] PRN Reason: Protocol Stop: 12/31/17 09:59 Last Admin: 11/14/17 09:05 Dose: 1 mg Donepezil HCl (Aricept) 10 mg PO DAILY [facility] Stop: 01/12/18 08:00 Last Admin: 11/14/17 09:05 Dose: 10 mg Doxycycline Hyclate (Vibramycin) 100 mg PO Q12HR [facility] Stop: 01/11/18 08:59 Last Admin: 11/14/17 09:05 Dose: 100 mg Famotidine (Pepcid) 20 mg PO BID [facility] Stop: 12/30/17 23:24 Last Admin: 11/14/17 09:05 Dose: 20 mg Fluconazole (Diflucan) 100 mg PO DAILY [facility] Stop: 12/30/17 23:24 Last Admin: 11/14/17 09:05 Dose: 100 mg Heparin Sodium (Porcine) (Heparin) 5,000 units SUBQ Q12HR [facility] PRN Reason: Protocol Stop: 12/30/17 23:24 Last Admin: 11/14/17 09:12 Dose: Not Given Vancomycin HCl 1 gm/ Sodium (Chloride) 250 mls @ 165 mls/hr IV Q12H [facility] Stop: 01/10/18 13:59 Last Admin: 11/14/17 13:08 Dose: 165 mls/hr Insulin Aspart (Novolog Insulin Sliding Scale) 0 units SUBQ ACHS [facility] PRN Reason: Protocol Stop: 12/31/17 07:29 Last Admin: 11/14/17 12:12 Dose: 8 units Insulin Detemir (Levemir Insulin) 20 units SUBQ DAILY [facility] PRN Reason: Protocol Stop: 01/12/18 06:20 Last Admin: 11/14/17 09:48 Dose: Not Given Magnesium Hydroxide (Milk Of Magnesia) 30 ml PO HS PRN PRN Reason: Constipation Stop: 12/30/17 23:24 Metformin HCl (Glucophage) 1,000 mg PO DAILY [facility] Stop: 12/31/17 09:59 Last Admin: 11/14/17 09:09 Dose: 1,000 mg Metoprolol Succinate (Toprol Xl) 25 mg PO DAILY [facility] Stop: 12/30/17 23:24 Last Admin: 11/14/17 09:09 Dose: 25 mg Miscellaneous (Vte Chemical Prophylaxis Screen/ Admission) 1 ea [facility] PRN PRN PRN Reason: PROTOCOL Stop: 12/31/17 10:29 Miscellaneous (Vancomycin Iv Per Pharmacy) 1 ea [facility] PRN PRN PRN Reason: PROTOCOL Stop: 01/07/18 16:10 Olanzapine (Zyprexa Zydis) 10 mg PO BID I[facility]UEL PRN Reason: Protocol Stop: 01/05/18 07:53 Last Admin: 11/14/17 09:10 Dose: 10 mg Zolpidem Tartrate (Ambien) 5 mg PO HS PRN PRN Reason: insomnia Stop: 12/30/17 23:24 Last Admin: 11/03/17 19:55 Dose: 5 mg General: no acute distress, well developed, well nourished HEENT: atraumatic, normocephalic, PERRLA Neck: supple, no thyromegaly, no lymphadenopathy Cardiovascular: S1S2, regular Lungs: clear to auscultation bilaterally, clear to percussion Abdomen: soft, no tender, no distended, no mass Extremities: no cyanosis, no clubbing, no edema Neurological: awake, alert, oriented Skin: other (sacral wound.) - Procedures Procedures: Procedures Procedure Code Date JEWEL MUSC/FASCIA 20 SQ CM/< 76430 10/12/17 EXCISION OF RIGHT HIP MUSCLE, OPEN APPROACH [id number] 10/12/17 INTRODUCTION OF SERUM/TOX/VACCINE INTO MUSCLE, PERC APPROACH [id number] 10/12/17 Infectious Disease Assmt/Plan - Assessment Assessment: 1. Sacral decubitus ulcer. 2. UTI. Treated 3. Dementia. - Plan Plan: wound care. Nutritional Asmnt/Malnutr-PDOC - Dietary Evaluation Malnutrition Findings (Please click <Entered> for more info): Nutritional Asmnt/Malnutrition Start: 11/05/17 16: 25 Text: Status: Complete Freq: Document 11/05/17 16:25 LCHENG (Rec: 11/05/17 16:31 LCHENG [email or web address]) Nutritional Asmnt/Malnutrition Patient General Information Nutritional Screening Moderate Risk Diagnosis dehydration Pertinent Medical Hx/Surgical Hx DM, dementia, depression, psychosis, schizophrenia, chronic renal insuff Subjective Information Pt is agitated, on 1:1 sitter. Per EMR, PO intake 25-75%, avg 50%. Current Diet Order/ Nutrition Support pureed, CCHO 60gm Pertinent Medications novolov, levemir, glucophage Pertinent Labs POC 181-316 Nutritional Hx/Data Height 1.8 m Height (Calculated Centimeters) 180.3 Current Weight (lbs) 77.111 kg Weight (Calculated Kilograms) 77.1 Weight (Calculated Grams) 91438.7 [place] Body Weight 172 Body Mass Index (BMI) 23.7 Weight Status Approriate GI Symptoms GI Symptoms None Last BM 11/03 Difficult in: None Skin Integrity/Comment: pressure ulcer, decubitus Current %PO Fair (50-74%) Estimated Nutritional Goals BEE in Kcals: Using Current wt Calories/Kcals/Kg 25-30 Kcals Calculated 2063-3027 Protein: Using Current wt Protein g/k-1.2 Protein Calculated 77-92 Fluid: ml 1925-2310ml (1ml/kcal) Nutritional Problem 1. Problem Problem altered nutrition related lab values Etiology hx of DM Signs/Symptoms: glucose 169, POC 181-316 Malnutrition Alert Protein-Calorie Malnutrition N/A Is there a minimum of two criteria No selected? Query Text:Check all the applicable criteria. A minimum of two criteria are recommended for diagnosis of either severe or non-severe malnutrition. Intervention/Recommendation Comments 1. Continue with current diet as ordered. 2. Monitor PO intake, wt, labs and skin integrity 3. F/U as moderate risk in 3-5 days, 11/08-11/10 Expected Outcomes/Goals Expected Outcomes/Goals 1. PO intake to meet at least 75% of nutritional needs. 2. Wt stability, skin to remain intact, labs to approach WNL.
--- NOTE | 2017-11-15 05:45 | General Progress Note ---
Subjective - Review of Systems Service Date: 11/15/17 Subjective: Patient resting comfortably in bed. no acute distress. In good spirits today. pleasant. cooperative today. eating well. Blood Sugars improving. Will adjust dosage. Objective - Results Result Diagrams: 11/13/17 07:00 11/13/17 07:00 Recent Labs: Laboratory Last Values WBC 10.2 Th/cmm (4.8-10.8) 11/13/17 07:00 RBC 4.18 Mil/cmm (3.80-5.80) 11/13/17 07:00 Hgb 12.5 gm/dL (12-16) 11/13/17 07:00 Hct 37.9 % (41.0-60) L 11/13/17 07:00 MCV 90.6 fl (80-99) 11/13/17 07:00 MCH 29.9 pg (27.0-31.0) 11/13/17 07:00 MCHC Differential 33.0 pg (28.0-36.0) 11/13/17 07:00 RDW 16.5 % (11.5-20.0) 11/13/17 07:00 Plt Count 283 Th/cmm (150-400) 11/13/17 07:00 MPV 8.0 fl 11/13/17 07:00 Neutrophils % 64.6 % (40.0-80.0) 11/13/17 07:00 Lymphocytes % 26.9 % (20.0-50.0) 11/13/17 07:00 Monocytes % 5.3 % (2.0-10.0) 11/13/17 07:00 Eosinophils % 2.8 % (0.0-5.0) 11/13/17 07:00 Basophils % 0.4 % (0.0-2.0) 11/13/17 07:00 PT 9.5 SECONDS (9.5-11.5) 11/05/17 21:35 INR 0.91 (0.5-1.4) 11/05/17 21:35 Sodium 132 mEq/L (136-145) L 11/13/17 07:00 Potassium 3.9 mEq/L (3.5-5.1) 11/13/17 07:00 Chloride 99 mEq/L (98-107) 11/13/17 07:00 Carbon Dioxide 23.2 mEq/L (21.0-31.0) 11/13/17 07:00 Anion Gap 13.7 (7.0-16.0) 11/13/17 07:00 BUN 10 mg/dL (7-25) 11/13/17 07:00 Creatinine 0.9 mg/dL (0.7-1.3) 11/13/17 07:00 Est GFR ( Amer) TNP 11/13/17 07:00 Est GFR (Non-Af Amer) TNP 11/13/17 07:00 BUN/Creatinine Ratio 11.1 11/13/17 07:00 Glucose 256 mg/dL (70-105) H 11/13/17 07:00 POC Glucose 305 MG/DL (70 - 105) H 11/14/17 12:04 Hemoglobin A1c % 8.8 % (4.0-6.0) H 11/13/17 07:00 Calcium 8.7 mg/dL (8.6-10.3) 11/13/17 07:00 Urine Source [place]RE [place] 11/11/17 21:30 Urine Color YELLOW 11/11/17 21:30 Urine Clarity HAZY (CLEAR) 11/11/17 21:30 Urine pH 5.5 (4.6 - 8.0) 11/11/17 21:30 Ur Specific [place] 1.010 (1.005-1.030) 11/11/17 21:30 Urine Protein NEGATIVE mg/dL (NEGATIVE) 11/11/17 21:30 Urine Glucose (UA) >=1000 mg/dL (NEGATIVE) H 11/11/17 21:30 Urine Ketones NEGATIVE mg/dL (NEGATIVE) 11/11/17 21:30 Urine Blood LARGE (NEGATIVE) H 11/11/17 21:30 Urine Nitrate NEGATIVE (NEGATIVE) 11/11/17 21:30 Urine Bilirubin NEGATIVE (NEGATIVE) 11/11/17 21:30 Urine Urobilinogen 0.2 E.U./dL (0.2 - 1.0) 11/11/17 21:30 Ur Leukocyte Esterase SMALL (NEGATIVE) H 11/11/17 21:30 Urine RBC 10-25 /hpf (0-5) H 11/11/17 21:30 Urine WBC 2-5 /hpf (0-5) 11/11/17 21:30 Ur Epithelial Cells OCCASIONAL /lpf (FEW) 11/11/17 21:30 Urine Bacteria FEW /hpf (NONE SEEN) 11/11/17 21:30 Urine Yeast FEW /hpf (NONE SEEN) H 11/11/17 21:30 Vancomycin Trough 13.4 ug/mL (10-20) 11/10/17 13:30 - Physical Exam Vitals and I&O: Vital Signs Temp 98.2 F 11/15/17 04:00 Pulse 72 11/15/17 04:00 Resp 19 11/15/17 04:00 BP 135/69 11/15/17 04:00 Pulse Ox 99 11/15/17 04:00 Intake & Output 11/14/17 11/14/17 11/15/17 06:59 18:59 06:59 Intake Total 500 900 250 Balance 500 900 250 Weight (lbs) 77.02 kg Intake: Intake, IV Amount 500 250 250 Vancomycin HCl 1 gm In 500 250 250 Sodium Chloride 0.9% 250 ml @ 165 mls/hr IV Q12H [facility] Rx#:[id number] Oral 650 Other: # Voids 3 # Bowel Movements 0 Weight Source Bedscale Active Medications: Current Medications Acetaminophen (Tylenol) 650 mg PO Q6H PRN PRN Reason: mild to moderate pain Stop: 12/30/17 23:24 Last Admin: 11/15/17 02:33 Dose: 650 mg Acetaminophen/Hydrocodone Bitart ([place] 5mg/325mg) 1 tab PO Q6H PRN PRN Reason: Pain (Moderate) Stop: 12/30/17 23:24 Last Admin: 11/14/17 05:34 Dose: 1 tab Allopurinol (Zyloprim) 100 mg PO DAILY [facility] Stop: 12/30/17 23:24 Last Admin: 11/14/17 09:05 Dose: 100 mg [place] Oil/[place] Balsam/Trypsin (Venelex) 1 appl TP DAILY [facility] Stop: 12/30/17 23:24 Last Admin: 11/14/17 09:12 Dose: Not Given Clonazepam (Klonopin) 1 mg PO BID IMMANUEL PRN Reason: Protocol Stop: 12/31/17 09:59 Last Admin: 11/14/17 16:36 Dose: 1 mg Donepezil HCl (Aricept) 10 mg PO DAILY [facility] Stop: 01/12/18 08:00 Last Admin: 11/14/17 09:05 Dose: 10 mg Doxycycline Hyclate (Vibramycin) 100 mg PO Q12HR [facility] Stop: 01/11/18 08:59 Last Admin: 11/14/17 20:12 Dose: 100 mg Famotidine (Pepcid) 20 mg PO BID [facility] Stop: 12/30/17 23:24 Last Admin: 11/14/17 16:36 Dose: 20 mg Fluconazole (Diflucan) 100 mg PO DAILY [facility] Stop: 12/30/17 23:24 Last Admin: 11/14/17 09:05 Dose: 100 mg Heparin Sodium (Porcine) (Heparin) 5,000 units SUBQ Q12HR [facility] PRN Reason: Protocol Stop: 12/30/17 23:24 Last Admin: 11/14/17 20:12 Dose: Not Given Vancomycin HCl 1 gm/ Sodium (Chloride) 250 mls @ 165 mls/hr IV Q12H [facility] Stop: 01/10/18 13:59 Last Infusion: 11/15/17 02:55 Dose: Infused Insulin Aspart (Novolog Insulin Sliding Scale) 0 units SUBQ ACHS [facility] PRN Reason: Protocol Stop: 12/31/17 07:29 Last Admin: 11/14/17 20:12 Dose: Not Given Insulin Detemir (Levemir Insulin) 20 units SUBQ DAILY [facility] PRN Reason: Protocol Stop: 01/12/18 06:20 Last Admin: 11/14/17 09:48 Dose: Not Given Magnesium Hydroxide (Milk Of Magnesia) 30 ml PO PRN PRN Reason: Constipation Stop: 12/30/17 23:24 Metformin HCl (Glucophage) 1,000 mg PO DAILY [facility] Stop: 12/31/17 09:59 Last Admin: 11/14/17 09:09 Dose: 1,000 mg Metoprolol Succinate (Toprol Xl) 25 mg PO DAILY [facility] Stop: 12/30/17 23:24 Last Admin: 11/14/17 09:09 Dose: 25 mg Miscellaneous (Vte Chemical Prophylaxis Screen/ Admission) 1 ea [facility] PRN PRN PRN Reason: PROTOCOL Stop: 12/31/17 10:29 Miscellaneous (Vancomycin Iv Per Pharmacy) 1 ea [facility] PRN PRN PRN Reason: PROTOCOL Stop: 01/07/18 16:10 Olanzapine (Zyprexa Zydis) 10 mg PO BID [facility] PRN Reason: Protocol Stop: 01/05/18 07:53 Last Admin: 11/14/17 16:35 Dose: 10 mg Zolpidem Tartrate (Ambien) 5 mg PO HS PRN PRN Reason: insomnia Stop: 12/30/17 23:24 Last Admin: 11/03/17 19:55 Dose: 5 mg General: Alert, No acute distress HEENT: Atraumatic, PERRLA, EOMI Neck: Supple, JVD, +2 carotid pulse wo bruit Cardiovascular: Regular rate, Normal S1, Normal S2 Lungs: Clear to auscultation Abdomen: Bowel sounds, Soft Extremities: no Clubbing, no Cyanosis, no Edema Neurological: Sensation intact Skin: no Rash Psych/Mental Status: Other (psychosis) - Procedures Procedures: Procedures Procedure Code Date JEWEL MUSC/FASCIA 20 SQ CM/< 58294 10/12/17 EXCISION OF RIGHT HIP MUSCLE, OPEN APPROACH [id number] 10/12/17 INTRODUCTION OF SERUM/TOX/VACCINE INTO MUSCLE, PERC APPROACH [id number] 10/12/17 Assessment/Plan - Assessment Assessment: psychosis dementia Alzheimer's dementia diabetes mellitus not controlled. s/p wound debridement of sacral decubiti UTI hyperglycemia - Plan Plan: continue current medications. will add doxycyline PO for hospice eval continue IV antibiotics Nutritional Asmnt/Malnutr-PDOC - Dietary Evaluation Malnutrition Findings (Please click <Entered> for more info): Nutritional Asmnt/Malnutrition Start: 11/05/17 16: 25 Text: Status: Complete Freq: Document 11/05/17 16:25 HEN (Rec: 11/05/17 16:31 LCHENG [email or web address]) Nutritional Asmnt/Malnutrition Patient General Information Nutritional Screening Moderate Risk Diagnosis dehydration Pertinent Medical Hx/Surgical Hx DM, dementia, depression, psychosis, schizophrenia, chronic renal insuff Subjective Information Pt is agitated, on 1:1 sitter. Per EMR, PO intake 25-75%, avg 50%. Current Diet Order/ Nutrition Support pureed, CCHO 60gm Pertinent Medications novolov, levemir, glucophage Pertinent Labs 11/03- POC 181-316 Nutritional Hx/Data Height 1.8 m Height (Calculated Centimeters) 180.3 Current Weight (lbs) 77.111 kg Weight (Calculated Kilograms) 77.1 Weight (Calculated Grams) 61344.7 [place] Body Weight 172 Body Mass Index (BMI) 23.7 Weight Status Approriate GI Symptoms GI Symptoms None Last BM 11/03 Difficult in: None Skin Integrity/Comment: pressure ulcer, decubitus Current %PO Fair (50-74%) Estimated Nutritional Goals BEE in Kcals: Using Current wt Calories/Kcals/Kg 25-30 Kcals Calculated 4360-2245 Protein: Using Current wt Protein g/k-1.2 Protein Calculated 77-92 Fluid: ml 1925-2310ml (1ml/kcal) Nutritional Problem 1. Problem Problem altered nutrition related lab values Etiology hx of DM Signs/Symptoms: glucose 169, POC 181-316 Malnutrition Alert Protein-Calorie Malnutrition N/A Is there a minimum of two criteria No selected? Query Text:Check all the applicable criteria. A minimum of two criteria are recommended for diagnosis of either severe or non-severe malnutrition. Intervention/Recommendation Comments 1. Continue with current diet as ordered. 2. Monitor PO intake, wt, labs and skin integrity 3. F/U as moderate risk in 3-5 days, 11/08-11/10 Expected Outcomes/Goals Expected Outcomes/Goals 1. PO intake to meet at least 75% of nutritional needs. 2. Wt stability, skin to remain intact, labs to approach WNL.
[2017-11-15] MEDS: INSULIN ASPART SLIDING SCALE 100 UNITS/ML UNIT SUBQ SCH ×4 (06:36→20:06)
[2017-11-15] MEDS: Insulin Detemir 100 units/mL 10mL Vial SUBQ SCH (08:16)
[2017-11-15] MEDS: OLANZapine 5 mg Oral Disintegrating Tab PO SCH ×2 (12:10→17:01)
[2017-11-15] MEDS: Venelex 60gm Tube TP SCH (12:11)
--- NOTE | 2017-11-15 12:37 | General Progress Note ---
Subjective - Review of Systems Service Date: 11/15/17 Subjective: lying in bed, more friendly, cooperative, eating lunch Objective - Results Result Diagrams: 11/13/17 07:00 11/13/17 07:00 Recent Labs: Laboratory Last Values WBC 10.2 Th/cmm (4.8-10.8) 11/13/17 07:00 RBC 4.18 Mil/cmm (3.80-5.80) 11/13/17 07:00 Hgb 12.5 gm/dL (12-16) 11/13/17 07:00 Hct 37.9 % (41.0-60) L 11/13/17 07:00 MCV 90.6 fl (80-99) 11/13/17 07:00 MCH 29.9 pg (27.0-31.0) 11/13/17 07:00 MCHC Differential 33.0 pg (28.0-36.0) 11/13/17 07:00 RDW 16.5 % (11.5-20.0) 11/13/17 07:00 Plt Count 283 Th/cmm (150-400) 11/13/17 07:00 MPV 8.0 fl 11/13/17 07:00 Neutrophils % 64.6 % (40.0-80.0) 11/13/17 07:00 Lymphocytes % 26.9 % (20.0-50.0) 11/13/17 07:00 Monocytes % 5.3 % (2.0-10.0) 11/13/17 07:00 Eosinophils % 2.8 % (0.0-5.0) 11/13/17 07:00 Basophils % 0.4 % (0.0-2.0) 11/13/17 07:00 PT 9.5 SECONDS (9.5-11.5) 11/05/17 21:35 INR 0.91 (0.5-1.4) 11/05/17 21:35 Sodium 132 mEq/L (136-145) L 11/13/17 07:00 Potassium 3.9 mEq/L (3.5-5.1) 11/13/17 07:00 Chloride 99 mEq/L (98-107) 11/13/17 07:00 Carbon Dioxide 23.2 mEq/L (21.0-31.0) 11/13/17 07:00 Anion Gap 13.7 (7.0-16.0) 11/13/17 07:00 BUN 10 mg/dL (7-25) 11/13/17 07:00 Creatinine 0.9 mg/dL (0.7-1.3) 11/13/17 07:00 Est GFR ( Amer) TNP 11/13/17 07:00 Est GFR (Non-Af Amer) TNP 11/13/17 07:00 BUN/Creatinine Ratio 11.1 11/13/17 07:00 Glucose 256 mg/dL (70-105) H 11/13/17 07:00 POC Glucose 319 MG/DL (70 - 105) H 11/15/17 06:09 Hemoglobin A1c % 8.8 % (4.0-6.0) H 11/13/17 07:00 Calcium 8.7 mg/dL (8.6-10.3) 11/13/17 07:00 Urine Source ANDRE PORT 11/11/17 21:30 Urine Color YELLOW 11/11/17 21:30 Urine Clarity HAZY (CLEAR) 11/11/17 21:30 Urine pH 5.5 (4.6 - 8.0) 11/11/17 21:30 Ur Specific [place] 1.010 (1.005-1.030) 11/11/17 21:30 Urine Protein NEGATIVE mg/dL (NEGATIVE) 11/11/17 21:30 Urine Glucose (UA) >=1000 mg/dL (NEGATIVE) H 11/11/17 21:30 Urine Ketones NEGATIVE mg/dL (NEGATIVE) 11/11/17 21:30 Urine Blood LARGE (NEGATIVE) H 11/11/17 21:30 Urine Nitrate NEGATIVE (NEGATIVE) 11/11/17 21:30 Urine Bilirubin NEGATIVE (NEGATIVE) 11/11/17 21:30 Urine Urobilinogen 0.2 E.U./dL (0.2 - 1.0) 11/11/17 21:30 Ur Leukocyte Esterase SMALL (NEGATIVE) H 11/11/17 21:30 Urine RBC 10-25 /hpf (0-5) H 11/11/17 21:30 Urine WBC 2-5 /hpf (0-5) 11/11/17 21:30 Ur Epithelial Cells OCCASIONAL /lpf (FEW) 11/11/17 21:30 Urine Bacteria FEW /hpf (NONE SEEN) 11/11/17 21:30 Urine Yeast FEW /hpf (NONE SEEN) H 11/11/17 21:30 Vancomycin Trough 13.4 ug/mL (10-20) 11/10/17 13:30 - Physical Exam Vitals and I&O: Vital Signs Temp 98.2 F 11/15/17 04:00 Pulse 84 11/15/17 12:10 Resp 19 11/15/17 04:00 BP 112/77 11/15/17 12:10 Pulse Ox 99 11/15/17 04:00 Intake & Output 11/14/17 11/15/17 11/15/17 18:59 06:59 18:59 Intake Total 900 730 Output Total 2600 Balance 900 -1870 Weight (lbs) 77.02 kg 76.204 kg Intake: Intake, IV Amount 250 250 Vancomycin HCl 1 gm In 250 250 Sodium Chloride 0.9% 250 ml @ 165 mls/hr IV Q12H [facility] Rx#:[id number] Oral 650 480 Output: Urine 2600 Other: # Voids 3 # Bowel Movements 0 Weight Source Bedscale Bedscale Active Medications: Current Medications Acetaminophen (Tylenol) 650 mg PO Q6H PRN PRN Reason: mild to moderate pain Stop: 12/30/17 23:24 Last Admin: 11/15/17 02:33 Dose: 650 mg Acetaminophen/Hydrocodone Bitart ([place] 5mg/325mg) 1 tab PO Q6H PRN PRN Reason: Pain (Moderate) Stop: 12/30/17 23:24 Last Admin: 11/14/17 05:34 Dose: 1 tab Allopurinol (Zyloprim) 100 mg PO DAILY [facility] Stop: 12/30/17 23:24 Last Admin: 11/15/17 08:15 Dose: 100 mg [place] Oil/[place] Balsam/Trypsin (Venelex) 1 appl TP DAILY I[facility] Stop: 12/30/17 23:24 Last Admin: 11/15/17 12:11 Dose: 1 appl Clonazepam (Klonopin) 1 mg PO BID I[facility] PRN Reason: Protocol Stop: 12/31/17 09:59 Last Admin: 11/15/17 08:15 Dose: 1 mg Donepezil HCl (Aricept) 10 mg PO DAILY [facility] Stop: 01/12/18 08:00 Last Admin: 11/15/17 08:15 Dose: 10 mg Doxycycline Hyclate (Vibramycin) 100 mg PO Q12HR [facility] Stop: 01/11/18 08:59 Last Admin: 11/15/17 08:15 Dose: 100 mg Famotidine (Pepcid) 20 mg PO BID IMM[facility]UEL Stop: 12/30/17 23:24 Last Admin: 11/15/17 08:15 Dose: 20 mg Fluconazole (Diflucan) 100 mg PO DAILY I[facility] Stop: 12/30/17 23:24 Last Admin: 11/15/17 08:15 Dose: 100 mg Heparin Sodium (Porcine) (Heparin) 5,000 units SUBQ Q12HR [facility] PRN Reason: Protocol Stop: 12/30/17 23:24 Last Admin: 11/15/17 08:16 Dose: 5,000 units Vancomycin HCl 1 gm/ Sodium (Chloride) 250 mls @ 165 mls/hr IV Q12H [facility] Stop: 01/10/18 13:59 Last Infusion: 11/15/17 02:55 Dose: Infused Insulin Aspart (Novolog Insulin Sliding Scale) 0 units SUBQ ACHS [facility] PRN Reason: Protocol Stop: 12/31/17 07:29 Last Admin: 11/15/17 12:12 Dose: 6 units Insulin Detemir (Levemir Insulin) 20 units SUBQ DAILY [facility] PRN Reason: Protocol Stop: 01/12/18 06:20 Last Admin: 11/15/17 08:16 Dose: 20 units Magnesium Hydroxide (Milk Of Magnesia) 30 ml PO PRN PRN Reason: Constipation Stop: 12/30/17 23:24 Metformin HCl (Glucophage) 1,000 mg PO DAILY [facility] Stop: 12/31/17 09:59 Last Admin: 11/15/17 12:11 Dose: 1,000 mg Metoprolol Succinate (Toprol Xl) 25 mg PO DAILY [facility] Stop: 12/30/17 23:24 Last Admin: 11/15/17 12:10 Dose: 25 mg Miscellaneous (Vte Chemical Prophylaxis Screen/ Admission) 1 ea PRN PRN PRN Reason: PROTOCOL Stop: 12/31/17 10:29 Miscellaneous (Vancomycin Iv Per Pharmacy) 1 ea PRN PRN PRN Reason: PROTOCOL Stop: 01/07/18 16:10 Olanzapine (Zyprexa Zydis) 10 mg PO BID [facility] PRN Reason: Protocol Stop: 01/05/18 07:53 Last Admin: 11/15/17 12:10 Dose: 10 mg Zolpidem Tartrate (Ambien) 5 mg PO HS PRN PRN Reason: insomnia Stop: 12/30/17 23:24 Last Admin: 11/03/17 19:55 Dose: 5 mg General: Alert, No acute distress HEENT: Atraumatic, PERRLA, EOMI Neck: Supple, JVD, +2 carotid pulse wo bruit Cardiovascular: Regular rate, Normal S1, Normal S2 Lungs: Clear to auscultation Abdomen: Bowel sounds, Soft Extremities: no Clubbing, no Cyanosis, no Edema Neurological: Sensation intact Skin: no Rash Psych/Mental Status: Other (psychosis) - Procedures Procedures: Procedures Procedure Code Date JEWEL MUSC/FASCIA 20 SQ CM/< 45553 10/12/17 EXCISION OF RIGHT HIP MUSCLE, OPEN APPROACH [id number] 10/12/17 INTRODUCTION OF SERUM/TOX/VACCINE INTO MUSCLE, PERC APPROACH [id number] 10/12/17 Assessment/Plan - Assessment Assessment: S/P KEN S/P electrolyte imbalance Acute decomp of Psychosis Type 2 DM MRSA, Yeast UTI - Plan Plan: Lab - Result Diagrams 11/01/17 06:48 Current Medications Acetaminophen (Tylenol) 650 mg PO Q6H PRN PRN Reason: mild to moderate pain Stop: 12/30/17 23:24 Acetaminophen/Hydrocodone Bitart ([place] 5mg/325mg) 1 tab PO Q6H PRN PRN Reason: Pain (Moderate) Stop: 12/30/17 23:24 Allopurinol (Zyloprim) 100 mg PO DAILY [facility] Stop: 12/30/17 23:24 Last Admin: 11/01/17 10:54 Dose: 100 mg [place] Oil/[place] Balsam/Trypsin (Venelex) 1 appl TP DAILY [facility] Stop: 12/30/17 23:24 Last Admin: 11/01/17 11:02 Dose: 1 appl Clonazepam (Klonopin) 1 mg PO BID [facility] PRN Reason: Protocol Stop: 12/31/17 09:59 Famotidine (Pepcid) 20 mg PO BID [facility] Stop: 12/30/17 23:24 Last Admin: 11/01/17 10:54 Dose: 20 mg Fluconazole (Diflucan) 100 mg PO DAILY [facility] Stop: 12/30/17 23:24 Last Admin: 11/01/17 11:02 Dose: 100 mg Heparin Sodium (Porcine) (Heparin) 5,000 units SUBQ Q12HR [facility] PRN Reason: Protocol Stop: 12/30/17 23:24 Last Admin: 11/01/17 10:59 Dose: 5,000 units Levofloxacin (Levaquin Pb) 500 mg in 100 mls @ 100 mls/hr IV Q24H [facility] Stop: 12/31/17 11:59 Insulin Aspart (Novolog Insulin Sliding Scale) 0 units SUBQ ACHS [facility] PRN Reason: Protocol Stop: 12/30/17 23:24 Last Admin: 11/01/17 10:45 Dose: 2 units Insulin Aspart (Novolog Insulin Sliding Scale) 0 units SUBQ ACHS [facility] PRN Reason: Protocol Stop: 12/31/17 07:29 Insulin Detemir (Levemir Insulin) 18 units SUBQ DAILY [facility] PRN Reason: Protocol Stop: 12/30/17 23:24 Last Admin: 11/01/17 10:56 Dose: 18 units Lorazepam (Ativan) 0.5 mg PO Q6HR PRN; Protocol PRN Reason: agitation Stop: 12/30/17 23:24 Magnesium Hydroxide (Milk Of Magnesia) 30 ml PO HS PRN PRN Reason: Constipation Stop: 12/30/17 23:24 Metformin HCl (Glucophage) 1,000 mg PO DAILY [facility] Stop: 12/31/17 09:59 Metoprolol Succinate (Toprol Xl) 25 mg PO DAILY [facility] Stop: 12/30/17 23:24 Last Admin: 11/01/17 10:55 Dose: 25 mg Miscellaneous (Vte Chemical Prophylaxis Screen/ Admission) 1 ea MC PRN PRN PRN Reason: PROTOCOL Stop: 12/31/17 10:29 Olanzapine (Zyprexa Zydis) 5 mg PO DAILY [facility] PRN Reason: Protocol Stop: 12/31/17 09:59 Zolpidem Tartrate (Ambien) 5 mg PO HS PRN PRN Reason: insomnia Stop: 12/30/17 23:24 Lab - Result Diagrams 11/09/17 05:00 kidney fnc remain stable encourage po intake psych meds continueVanco W/ Diflucan awaiting placement Nutritional Asmnt/Malnutr-PDOC - Dietary Evaluation Malnutrition Findings (Please click <Entered> for more info): Nutritional Asmnt/Malnutrition Start: 11/05/17 16: 25 Text: Status: Complete Freq: Document 11/05/17 16:25 GREY (Rec: 11/05/17 16:31 [email or web address] [id number]) Nutritional Asmnt/Malnutrition Patient General Information Nutritional Screening Moderate Risk Diagnosis dehydration Pertinent Medical Hx/Surgical Hx DM, dementia, depression, psychosis, schizophrenia, chronic renal insuff Subjective Information Pt is agitated, on 1:1 sitter. Per EMR, PO intake 25-75%, avg 50%. Current Diet Order/ Nutrition Support pureed, CCHO 60gm Pertinent Medications novolov, levemir, glucophage Pertinent Labs 11/03- POC 181-316 Nutritional Hx/Data Height 1.8 m Height (Calculated Centimeters) 180.3 Current Weight (lbs) 77.111 kg Weight (Calculated Kilograms) 77.1 Weight (Calculated Grams) 59116.7 [place] Body Weight 172 Body Mass Index (BMI) 23.7 Weight Status Approriate GI Symptoms GI Symptoms None Last BM 11/03 Difficult in: None Skin Integrity/Comment: pressure ulcer, decubitus Current %PO Fair (50-74%) Estimated Nutritional Goals BEE in Kcals: Using Current wt Calories/Kcals/Kg 25-30 Kcals Calculated 4779-2000 Protein: Using Current wt Protein g/k-1.2 Protein Calculated 77-92 Fluid: ml 1925-2310ml (1ml/kcal) Nutritional Problem 1. Problem Problem altered nutrition related lab values Etiology hx of DM Signs/Symptoms: glucose 169, POC 181-316 Malnutrition Alert Protein-Calorie Malnutrition N/A Is there a minimum of two criteria No selected? Query Text:Check all the applicable criteria. A minimum of two criteria are recommended for diagnosis of either severe or non-severe malnutrition. Intervention/Recommendation Comments 1. Continue with current diet as ordered. 2. Monitor PO intake, wt, labs and skin integrity 3. F/U as moderate risk in 3-5 days, 11/08-11/10 Expected Outcomes/Goals Expected Outcomes/Goals 1. PO intake to meet at least 75% of nutritional needs. 2. Wt stability, skin to remain intact, labs to approach WNL.
--- NOTE | 2017-11-15 22:54 | Infectious Disease Prog Note ---
Infectious Disease Subjective - Review of Systems Service Date: 11/15/17 Subjective: No fever Infectious Disease Objective - Results Result Diagrams: 11/13/17 07:00 11/13/17 07:00 Recent Labs: Laboratory Last Values WBC 10.2 Th/cmm (4.8-10.8) 11/13/17 07:00 RBC 4.18 Mil/cmm (3.80-5.80) 11/13/17 07:00 Hgb 12.5 gm/dL (12-16) 11/13/17 07:00 Hct 37.9 % (41.0-60) L 11/13/17 07:00 MCV 90.6 fl (80-99) 11/13/17 07:00 MCH 29.9 pg (27.0-31.0) 11/13/17 07:00 MCHC Differential 33.0 pg (28.0-36.0) 11/13/17 07:00 RDW 16.5 % (11.5-20.0) 11/13/17 07:00 Plt Count 283 Th/cmm (150-400) 11/13/17 07:00 MPV 8.0 fl 11/13/17 07:00 Neutrophils % 64.6 % (40.0-80.0) 11/13/17 07:00 Lymphocytes % 26.9 % (20.0-50.0) 11/13/17 07:00 Monocytes % 5.3 % (2.0-10.0) 11/13/17 07:00 Eosinophils % 2.8 % (0.0-5.0) 11/13/17 07:00 Basophils % 0.4 % (0.0-2.0) 11/13/17 07:00 PT 9.5 SECONDS (9.5-11.5) 11/05/17 21:35 INR 0.91 (0.5-1.4) 11/05/17 21:35 Sodium 132 mEq/L (136-145) L 11/13/17 07:00 Potassium 3.9 mEq/L (3.5-5.1) 11/13/17 07:00 Chloride 99 mEq/L (98-107) 11/13/17 07:00 Carbon Dioxide 23.2 mEq/L (21.0-31.0) 11/13/17 07:00 Anion Gap 13.7 (7.0-16.0) 11/13/17 07:00 BUN 10 mg/dL (7-25) 11/13/17 07:00 Creatinine 0.9 mg/dL (0.7-1.3) 11/13/17 07:00 Est GFR ( Amer) TNP 11/13/17 07:00 Est GFR (Non-Af Amer) TNP 11/13/17 07:00 BUN/Creatinine Ratio 11.1 11/13/17 07:00 Glucose 256 mg/dL (70-105) H 11/13/17 07:00 POC Glucose 208 MG/DL (70 - 105) H 11/15/17 20:04 Hemoglobin A1c % 8.8 % (4.0-6.0) H 11/13/17 07:00 Calcium 8.7 mg/dL (8.6-10.3) 11/13/17 07:00 Urine Source [place]RE [place] 11/11/17 21:30 Urine Color YELLOW 11/11/17 21:30 Urine Clarity HAZY (CLEAR) 11/11/17 21:30 Urine pH 5.5 (4.6 - 8.0) 11/11/17 21:30 Ur Specific [place] 1.010 (1.005-1.030) 11/11/17 21:30 Urine Protein NEGATIVE mg/dL (NEGATIVE) 11/11/17 21:30 Urine Glucose (UA) >=1000 mg/dL (NEGATIVE) H 11/11/17 21:30 Urine Ketones NEGATIVE mg/dL (NEGATIVE) 11/11/17 21:30 Urine Blood LARGE (NEGATIVE) H 11/11/17 21:30 Urine Nitrate NEGATIVE (NEGATIVE) 11/11/17 21:30 Urine Bilirubin NEGATIVE (NEGATIVE) 11/11/17 21:30 Urine Urobilinogen 0.2 E.U./dL (0.2 - 1.0) 11/11/17 21:30 Ur Leukocyte Esterase SMALL (NEGATIVE) H 11/11/17 21:30 Urine RBC 10-25 /hpf (0-5) H 11/11/17 21:30 Urine WBC 2-5 /hpf (0-5) 11/11/17 21:30 Ur Epithelial Cells OCCASIONAL /lpf (FEW) 11/11/17 21:30 Urine Bacteria FEW /hpf (NONE SEEN) 11/11/17 21:30 Urine Yeast FEW /hpf (NONE SEEN) H 11/11/17 21:30 Vancomycin Trough 21.0 ug/mL (10-20) H 11/15/17 13:00 - Physical Exam Vitals and I&O: Vital Signs Temp 98.5 F 11/15/17 20:00 Pulse 71 11/15/17 20:00 Resp 18 11/15/17 20:00 BP 130/64 11/15/17 20:00 Pulse Ox 95 11/15/17 20:00 Intake & Output 11/15/17 11/15/17 11/16/17 06:59 18:59 06:59 Intake Total 730 1750 Output Total 2600 2200 Balance -1870 -450 Weight (lbs) 76.204 kg 76.204 kg Intake: Intake, IV Amount 250 250 Vancomycin HCl 1 gm In 250 250 Sodium Chloride 0.9% 250 ml @ 165 mls/hr IV Q12H [facility] Rx#:[id number] Oral 480 1500 Output: Urine 2600 2200 Other: # Bowel Movements 1 Weight Source Bedscale Bedscale Active Medications: Current Medications Acetaminophen (Tylenol) 650 mg PO Q6H PRN PRN Reason: mild to moderate pain Stop: 12/30/17 23:24 Last Admin: 11/15/17 02:33 Dose: 650 mg Acetaminophen/Hydrocodone Bitart ([place] 5mg/325mg) 1 tab PO Q6H PRN PRN Reason: Pain (Moderate) Stop: 12/30/17 23:24 Last Admin: 11/14/17 05:34 Dose: 1 tab Allopurinol (Zyloprim) 100 mg PO DAILY [facility] Stop: 12/30/17 23:24 Last Admin: 11/15/17 08:15 Dose: 100 mg [place] Oil/[place] Balsam/Trypsin (Venelex) 1 appl TP DAILY [facility] Stop: 12/30/17 23:24 Last Admin: 11/15/17 12:11 Dose: 1 appl Clonazepam (Klonopin) 1 mg PO BID [facility] PRN Reason: Protocol Stop: 12/31/17 09:59 Last Admin: 11/15/17 17:01 Dose: 1 mg Donepezil HCl (Aricept) 10 mg PO DAILY [facility] Stop: 01/12/18 08:00 Last Admin: 11/15/17 08:15 Dose: 10 mg Doxycycline Hyclate (Vibramycin) 100 mg PO Q12HR [facility] Stop: 01/11/18 08:59 Last Admin: 11/15/17 20:06 Dose: 100 mg Famotidine (Pepcid) 20 mg PO BID [facility] Stop: 12/30/17 23:24 Last Admin: 11/15/17 17:01 Dose: 20 mg Fluconazole (Diflucan) 100 mg PO DAILY [facility] Stop: 12/30/17 23:24 Last Admin: 11/15/17 08:15 Dose: 100 mg Heparin Sodium (Porcine) (Heparin) 5,000 units SUBQ Q12HR [facility] PRN Reason: Protocol Stop: 12/30/17 23:24 Last Admin: 11/15/17 20:06 Dose: 5,000 units Vancomycin HCl 1 gm/ Sodium (Chloride) 250 mls @ 165 mls/hr IV Q12H [facility] Stop: 01/10/18 13:59 Last Infusion: 11/15/17 18:15 Dose: Infused Insulin Aspart (Novolog Insulin Sliding Scale) 0 units SUBQ ACHS [facility] PRN Reason: Protocol Stop: 12/31/17 07:29 Last Admin: 11/15/17 20:06 Dose: 4 units Insulin Detemir (Levemir Insulin) 20 units SUBQ DAILY [facility] PRN Reason: Protocol Stop: 01/12/18 06:20 Last Admin: 11/15/17 08:16 Dose: 20 units Magnesium Hydroxide (Milk Of Magnesia) 30 ml PO PRN PRN Reason: Constipation Stop: 12/30/17 23:24 Metformin HCl (Glucophage) 1,000 mg PO DAILY [facility] Stop: 12/31/17 09:59 Last Admin: 11/15/17 12:11 Dose: 1,000 mg Metoprolol Succinate (Toprol Xl) 25 mg PO DAILY [facility] Stop: 12/30/17 23:24 Last Admin: 11/15/17 12:10 Dose: 25 mg Miscellaneous (Vte Chemical Prophylaxis Screen/ Admission) 1 ea MC PRN PRN PRN Reason: PROTOCOL Stop: 12/31/17 10:29 Miscellaneous (Vancomycin Iv Per Pharmacy) 1 ea MC PRN PRN PRN Reason: PROTOCOL Stop: 01/07/18 16:10 Olanzapine (Zyprexa Zydis) 10 mg PO BID [facility] PRN Reason: Protocol Stop: 01/05/18 07:53 Last Admin: 11/15/17 17:01 Dose: 10 mg Zolpidem Tartrate (Ambien) 5 mg PO HS PRN PRN Reason: insomnia Stop: 12/30/17 23:24 Last Admin: 11/03/17 19:55 Dose: 5 mg General: no acute distress, well developed, well nourished HEENT: atraumatic, normocephalic, PERRLA Neck: supple, no thyromegaly Cardiovascular: S1S2, regular Lungs: clear to auscultation bilaterally, clear to percussion Abdomen: soft, no tender, no distended Extremities: no cyanosis, no clubbing, no edema Neurological: awake, alert, oriented Skin: other (sacral decubitus) - Procedures Procedures: Procedures Procedure Code Date JEWEL MUSC/FASCIA 20 SQ CM/< 86672 10/12/17 EXCISION OF RIGHT HIP MUSCLE, OPEN APPROACH [id number] 10/12/17 INTRODUCTION OF SERUM/TOX/VACCINE INTO MUSCLE, PERC APPROACH [id number] 10/12/17 Infectious Disease Assmt/Plan - Assessment Assessment: 1. Sacral decubitus ulcer. 2. UTI. Treated 3. Dementia. - Plan Plan: wound care. Nutritional Asmnt/Malnutr-PDOC - Dietary Evaluation Malnutrition Findings (Please click <Entered> for more info): Nutritional Asmnt/Malnutrition Start: 11/05/17 16: 25 Text: Status: Complete Freq: Document 11/05/17 16:25 LCHENG (Rec: 11/05/17 16:31 LCDEMIG [place] [id number]) Nutritional Asmnt/Malnutrition Patient General Information Nutritional Screening Moderate Risk Diagnosis dehydration Pertinent Medical Hx/Surgical Hx DM, dementia, depression, psychosis, schizophrenia, chronic renal insuff Subjective Information Pt is agitated, on 1:1 sitter. Per EMR, PO intake 25-75%, avg 50%. Current Diet Order/ Nutrition Support pureed, CCHO 60gm Pertinent Medications novolov, levemir, glucophage Pertinent Labs POC 181-316 Nutritional Hx/Data Height 1.8 m Height (Calculated Centimeters) 180.3 Current Weight (lbs) 77.111 kg Weight (Calculated Kilograms) 77.1 Weight (Calculated Grams) 41187.7 [place] Body Weight 172 Body Mass Index (BMI) 23.7 Weight Status Approriate GI Symptoms GI Symptoms None Last BM 11/03 Difficult in: None Skin Integrity/Comment: pressure ulcer, decubitus Current %PO Fair (50-74%) Estimated Nutritional Goals BEE in Kcals: Using Current wt Calories/Kcals/Kg 25-30 Kcals Calculated 0410-1535 Protein: Using Current wt Protein g/k-1.2 Protein Calculated 77-92 Fluid: ml 1925-2310ml (1ml/kcal) Nutritional Problem 1. Problem Problem altered nutrition related lab values Etiology hx of DM Signs/Symptoms: glucose 169, POC 181-316 Malnutrition Alert Protein-Calorie Malnutrition N/A Is there a minimum of two criteria No selected? Query Text:Check all the applicable criteria. A minimum of two criteria are recommended for diagnosis of either severe or non-severe malnutrition. Intervention/Recommendation Comments 1. Continue with current diet as ordered. 2. Monitor PO intake, wt, labs and skin integrity 3. F/U as moderate risk in 3-5 days, 11/08-11/10 Expected Outcomes/Goals Expected Outcomes/Goals 1. PO intake to meet at least 75% of nutritional needs. 2. Wt stability, skin to remain intact, labs to approach WNL.
--- NOTE | 2017-11-16 06:42 | General Progress Note ---
Subjective - Review of Systems Service Date: 11/16/17 Subjective: Patient resting comfortably in bed. no acute distress. In good spirits today. pleasant. cooperative today. eating well. Blood Sugars improving. Will adjust dosage. Constipated this AM. Would like a stool softener Objective - Results Result Diagrams: 11/13/17 07:00 11/13/17 07:00 Recent Labs: Laboratory Last Values WBC 10.2 Th/cmm (4.8-10.8) 11/13/17 07:00 RBC 4.18 Mil/cmm (3.80-5.80) 11/13/17 07:00 Hgb 12.5 gm/dL (12-16) 11/13/17 07:00 Hct 37.9 % (41.0-60) L 11/13/17 07:00 MCV 90.6 fl (80-99) 11/13/17 07:00 MCH 29.9 pg (27.0-31.0) 11/13/17 07:00 MCHC Differential 33.0 pg (28.0-36.0) 11/13/17 07:00 RDW 16.5 % (11.5-20.0) 11/13/17 07:00 Plt Count 283 Th/cmm (150-400) 11/13/17 07:00 MPV 8.0 fl 11/13/17 07:00 Neutrophils % 64.6 % (40.0-80.0) 11/13/17 07:00 Lymphocytes % 26.9 % (20.0-50.0) 11/13/17 07:00 Monocytes % 5.3 % (2.0-10.0) 11/13/17 07:00 Eosinophils % 2.8 % (0.0-5.0) 11/13/17 07:00 Basophils % 0.4 % (0.0-2.0) 11/13/17 07:00 PT 9.5 SECONDS (9.5-11.5) 11/05/17 21:35 INR 0.91 (0.5-1.4) 11/05/17 21:35 Sodium 132 mEq/L (136-145) L 11/13/17 07:00 Potassium 3.9 mEq/L (3.5-5.1) 11/13/17 07:00 Chloride 99 mEq/L (98-107) 11/13/17 07:00 Carbon Dioxide 23.2 mEq/L (21.0-31.0) 11/13/17 07:00 Anion Gap 13.7 (7.0-16.0) 11/13/17 07:00 BUN 10 mg/dL (7-25) 11/13/17 07:00 Creatinine 0.9 mg/dL (0.7-1.3) 11/13/17 07:00 Est GFR ( Amer) TNP 11/13/17 07:00 Est GFR (Non-Af Amer) TNP 11/13/17 07:00 BUN/Creatinine Ratio 11.1 11/13/17 07:00 Glucose 256 mg/dL (70-105) H 11/13/17 07:00 POC Glucose 175 MG/DL (70 - 105) H 11/16/17 05:47 Hemoglobin A1c % 8.8 % (4.0-6.0) H 11/13/17 07:00 Calcium 8.7 mg/dL (8.6-10.3) 11/13/17 07:00 Urine Source ANDRE PORT 11/11/17 21:30 Urine Color YELLOW 11/11/17 21:30 Urine Clarity HAZY (CLEAR) 11/11/17 21:30 Urine pH 5.5 (4.6 - 8.0) 11/11/17 21:30 Ur Specific [place] 1.010 (1.005-1.030) 11/11/17 21:30 Urine Protein NEGATIVE mg/dL (NEGATIVE) 11/11/17 21:30 Urine Glucose (UA) >=1000 mg/dL (NEGATIVE) H 11/11/17 21:30 Urine Ketones NEGATIVE mg/dL (NEGATIVE) 11/11/17 21:30 Urine Blood LARGE (NEGATIVE) H 11/11/17 21:30 Urine Nitrate NEGATIVE (NEGATIVE) 11/11/17 21:30 Urine Bilirubin NEGATIVE (NEGATIVE) 11/11/17 21:30 Urine Urobilinogen 0.2 E.U./dL (0.2 - 1.0) 11/11/17 21:30 Ur Leukocyte Esterase SMALL (NEGATIVE) H 11/11/17 21:30 Urine RBC 10-25 /hpf (0-5) H 11/11/17 21:30 Urine WBC 2-5 /hpf (0-5) 11/11/17 21:30 Ur Epithelial Cells OCCASIONAL /lpf (FEW) 11/11/17 21:30 Urine Bacteria FEW /hpf (NONE SEEN) 11/11/17 21:30 Urine Yeast FEW /hpf (NONE SEEN) H 11/11/17 21:30 Vancomycin Trough 21.0 ug/mL (10-20) H 11/15/17 13:00 - Physical Exam Vitals and I&O: Vital Signs Temp 98.0 F 11/16/17 04:00 Pulse 69 11/16/17 04:00 Resp 18 11/16/17 04:00 BP 156/79 11/16/17 04:00 Pulse Ox 100 11/16/17 04:00 Intake & Output 11/15/17 11/15/17 11/16/17 06:59 18:59 06:59 Intake Total 730 1750 1100 Output Total 2600 2200 900 Balance -1870 -450 200 Weight (lbs) 76.204 kg 76.204 kg 76.204 kg Intake: Intake, IV Amount 250 250 250 Vancomycin HCl 1 gm In 250 250 250 Sodium Chloride 0.9% 250 ml @ 165 mls/hr IV Q12H [facility] Rx#:[id number] Oral 480 1500 850 Output: Urine 2600 2200 900 Other: # Bowel Movements 1 Weight Source Bedscale Bedscale Bedscale Active Medications: Current Medications Acetaminophen (Tylenol) 650 mg PO Q6H PRN PRN Reason: mild to moderate pain Stop: 12/30/17 23:24 Last Admin: 11/15/17 02:33 Dose: 650 mg Acetaminophen/Hydrocodone Bitart ([place] 5mg/325mg) 1 tab PO Q6H PRN PRN Reason: Pain (Moderate) Stop: 12/30/17 23:24 Last Admin: 11/14/17 05:34 Dose: 1 tab Allopurinol (Zyloprim) 100 mg PO DAILY [facility] Stop: 12/30/17 23:24 Last Admin: 11/15/17 08:15 Dose: 100 mg [place] Oil/[place] Balsam/Trypsin (Venelex) 1 appl TP DAILY [facility] Stop: 12/30/17 23:24 Last Admin: 11/15/17 12:11 Dose: 1 appl Clonazepam (Klonopin) 1 mg PO BID [facility] PRN Reason: Protocol Stop: 12/31/17 09:59 Last Admin: 11/15/17 17:01 Dose: 1 mg Docusate Sodium (Colace) 100 mg PO DAILY [facility] Stop: 01/15/18 08:59 Donepezil HCl (Aricept) 10 mg PO DAILY [facility] Stop: 01/12/18 08:00 Last Admin: 11/15/17 08:15 Dose: 10 mg Doxycycline Hyclate (Vibramycin) 100 mg PO Q12HR [facility] Stop: 01/11/18 08:59 Last Admin: 11/15/17 20:06 Dose: 100 mg Famotidine (Pepcid) 20 mg PO BID [facility] Stop: 12/30/17 23:24 Last Admin: 11/15/17 17:01 Dose: 20 mg Fluconazole (Diflucan) 100 mg PO DAILY [facility] Stop: 12/30/17 23:24 Last Admin: 11/15/17 08:15 Dose: 100 mg Heparin Sodium (Porcine) (Heparin) 5,000 units SUBQ Q12HR [facility] PRN Reason: Protocol Stop: 12/30/17 23:24 Last Admin: 11/15/17 20:06 Dose: 5,000 units Vancomycin HCl 1 gm/ Sodium (Chloride) 250 mls @ 165 mls/hr IV Q12H [facility] Stop: 01/10/18 13:59 Last Infusion: 11/16/17 02:36 Dose: Infused Insulin Aspart (Novolog Insulin Sliding Scale) 0 units SUBQ ACHS [facility] PRN Reason: Protocol Stop: 12/31/17 07:29 Last Admin: 11/15/17 20:06 Dose: 4 units Insulin Detemir (Levemir Insulin) 20 units SUBQ DAILY [facility] PRN Reason: Protocol Stop: 01/12/18 06:20 Last Admin: 11/15/17 08:16 Dose: 20 units Magnesium Hydroxide (Milk Of Magnesia) 30 ml PO PRN PRN Reason: Constipation Stop: 12/30/17 23:24 Metformin HCl (Glucophage) 1,000 mg PO DAILY [facility] Stop: 12/31/17 09:59 Last Admin: 11/15/17 12:11 Dose: 1,000 mg Metoprolol Succinate (Toprol Xl) 25 mg PO DAILY [facility] Stop: 12/30/17 23:24 Last Admin: 11/15/17 12:10 Dose: 25 mg Miscellaneous (Vte Chemical Prophylaxis Screen/ Admission) 1 ea [facility] PRN PRN PRN Reason: PROTOCOL Stop: 12/31/17 10:29 Olanzapine (Zyprexa Zydis) 10 mg PO BID [facility] PRN Reason: Protocol Stop: 01/05/18 07:53 Last Admin: 11/15/17 17:01 Dose: 10 mg Zolpidem Tartrate (Ambien) 5 mg PO HS PRN PRN Reason: insomnia Stop: 12/30/17 23:24 Last Admin: 11/03/17 19:55 Dose: 5 mg General: Alert, No acute distress HEENT: Atraumatic, PERRLA, EOMI Neck: Supple, JVD, +2 carotid pulse wo bruit Cardiovascular: Regular rate, Normal S1, Normal S2 Lungs: Clear to auscultation Abdomen: Bowel sounds, Soft Extremities: no Clubbing, no Cyanosis, no Edema Neurological: Sensation intact Skin: no Rash Psych/Mental Status: Other (psychosis) - Procedures Procedures: Procedures Procedure Code Date JEWEL MUSC/FASCIA 20 SQ CM/< 66755 10/12/17 EXCISION OF RIGHT HIP MUSCLE, OPEN APPROACH [id number] 10/12/17 INTRODUCTION OF SERUM/TOX/VACCINE INTO MUSCLE, PERC APPROACH [id number] 10/12/17 Assessment/Plan - Assessment Assessment: psychosis dementia Alzheimer's dementia diabetes mellitus not controlled. s/p wound debridement of sacral decubiti UTI hyperglycemia constipation - Plan Plan: continue current medications. will add doxycyline PO for hospice eval continue IV antibiotics stool softener Nutritional Asmnt/Malnutr-PDOC - Dietary Evaluation Malnutrition Findings (Please click <Entered> for more info): Nutritional Asmnt/Malnutrition Start: 11/05/17 16: 25 Text: Status: Complete Freq: Document 11/05/17 16:25 LCHENG (Rec: 11/05/17 16:31 LCHENG [email or web address]) Nutritional Asmnt/Malnutrition Patient General Information Nutritional Screening Moderate Risk Diagnosis dehydration Pertinent Medical Hx/Surgical Hx DM, dementia, depression, psychosis, schizophrenia, chronic renal insuff Subjective Information Pt is agitated, on 1:1 sitter. Per EMR, PO intake 25-75%, avg 50%. Current Diet Order/ Nutrition Support pureed, CCHO 60gm Pertinent Medications novolov, levemir, glucophage Pertinent Labs POC 181-316 Nutritional Hx/Data Height 1.8 m Height (Calculated Centimeters) 180.3 Current Weight (lbs) 77.111 kg Weight (Calculated Kilograms) 77.1 Weight (Calculated Grams) 87354.7 [place] Body Weight 172 Body Mass Index (BMI) 23.7 Weight Status Approriate GI Symptoms GI Symptoms None Last BM 11/03 Difficult in: None Skin Integrity/Comment: pressure ulcer, decubitus Current %PO Fair (50-74%) Estimated Nutritional Goals BEE in Kcals: Using Current wt Calories/Kcals/Kg 25-30 Kcals Calculated 9035-0816 Protein: Using Current wt Protein g/k-1.2 Protein Calculated 77-92 Fluid: ml 1925-2310ml (1ml/kcal) Nutritional Problem 1. Problem Problem altered nutrition related lab values Etiology hx of DM Signs/Symptoms: glucose 169, POC 181-316 Malnutrition Alert Protein-Calorie Malnutrition N/A Is there a minimum of two criteria No selected? Query Text:Check all the applicable criteria. A minimum of two criteria are recommended for diagnosis of either severe or non-severe malnutrition. Intervention/Recommendation Comments 1. Continue with current diet as ordered. 2. Monitor PO intake, wt, labs and skin integrity 3. F/U as moderate risk in 3-5 days, 11/08-11/10 Expected Outcomes/Goals Expected Outcomes/Goals 1. PO intake to meet at least 75% of nutritional needs. 2. Wt stability, skin to remain intact, labs to approach WNL.
[2017-11-16] MEDS: Insulin Detemir 100 units/mL 10mL Vial SUBQ SCH (08:38)
[2017-11-16] MEDS: INSULIN ASPART SLIDING SCALE 100 UNITS/ML UNIT SUBQ SCH ×4 (08:39→20:38)
[2017-11-16] MEDS: Venelex 60gm Tube TP SCH (08:44)
[2017-11-16] MEDS: OLANZapine 5 mg Oral Disintegrating Tab PO SCH ×2 (08:49→17:20)
--- NOTE | 2017-11-16 17:18 | General Progress Note ---
Subjective - Review of Systems Service Date: 11/16/17 Subjective: lying in bed, more friendly, cooperative, eating lunch Objective - Results Result Diagrams: 11/13/17 07:00 11/13/17 07:00 Recent Labs: Laboratory Last Values WBC 10.2 Th/cmm (4.8-10.8) 11/13/17 07:00 RBC 4.18 Mil/cmm (3.80-5.80) 11/13/17 07:00 Hgb 12.5 gm/dL (12-16) 11/13/17 07:00 Hct 37.9 % (41.0-60) L 11/13/17 07:00 MCV 90.6 fl (80-99) 11/13/17 07:00 MCH 29.9 pg (27.0-31.0) 11/13/17 07:00 MCHC Differential 33.0 pg (28.0-36.0) 11/13/17 07:00 RDW 16.5 % (11.5-20.0) 11/13/17 07:00 Plt Count 283 Th/cmm (150-400) 11/13/17 07:00 MPV 8.0 fl 11/13/17 07:00 Neutrophils % 64.6 % (40.0-80.0) 11/13/17 07:00 Lymphocytes % 26.9 % (20.0-50.0) 11/13/17 07:00 Monocytes % 5.3 % (2.0-10.0) 11/13/17 07:00 Eosinophils % 2.8 % (0.0-5.0) 11/13/17 07:00 Basophils % 0.4 % (0.0-2.0) 11/13/17 07:00 PT 9.5 SECONDS (9.5-11.5) 11/05/17 21:35 INR 0.91 (0.5-1.4) 11/05/17 21:35 Sodium 132 mEq/L (136-145) L 11/13/17 07:00 Potassium 3.9 mEq/L (3.5-5.1) 11/13/17 07:00 Chloride 99 mEq/L (98-107) 11/13/17 07:00 Carbon Dioxide 23.2 mEq/L (21.0-31.0) 11/13/17 07:00 Anion Gap 13.7 (7.0-16.0) 11/13/17 07:00 BUN 10 mg/dL (7-25) 11/13/17 07:00 Creatinine 0.9 mg/dL (0.7-1.3) 11/13/17 07:00 Est GFR ( Amer) TNP 11/13/17 07:00 Est GFR (Non-Af Amer) TNP 11/13/17 07:00 BUN/Creatinine Ratio 11.1 11/13/17 07:00 Glucose 256 mg/dL (70-105) H 11/13/17 07:00 POC Glucose 144 MG/DL (70 - 105) H 11/16/17 16:22 Hemoglobin A1c % 8.8 % (4.0-6.0) H 11/13/17 07:00 Calcium 8.7 mg/dL (8.6-10.3) 11/13/17 07:00 Urine Source ANDRE [place] 11/11/17 21:30 Urine Color YELLOW 11/11/17 21:30 Urine Clarity HAZY (CLEAR) 11/11/17 21:30 Urine pH 5.5 (4.6 - 8.0) 11/11/17 21:30 Ur Specific [place] 1.010 (1.005-1.030) 11/11/17 21:30 Urine Protein NEGATIVE mg/dL (NEGATIVE) 11/11/17 21:30 Urine Glucose (UA) >=1000 mg/dL (NEGATIVE) H 11/11/17 21:30 Urine Ketones NEGATIVE mg/dL (NEGATIVE) 11/11/17 21:30 Urine Blood LARGE (NEGATIVE) H 11/11/17 21:30 Urine Nitrate NEGATIVE (NEGATIVE) 11/11/17 21:30 Urine Bilirubin NEGATIVE (NEGATIVE) 11/11/17 21:30 Urine Urobilinogen 0.2 E.U./dL (0.2 - 1.0) 11/11/17 21:30 Ur Leukocyte Esterase SMALL (NEGATIVE) H 11/11/17 21:30 Urine RBC 10-25 /hpf (0-5) H 11/11/17 21:30 Urine WBC 2-5 /hpf (0-5) 11/11/17 21:30 Ur Epithelial Cells OCCASIONAL /lpf (FEW) 11/11/17 21:30 Urine Bacteria FEW /hpf (NONE SEEN) 11/11/17 21:30 Urine Yeast FEW /hpf (NONE SEEN) H 11/11/17 21:30 Vancomycin Trough 21.0 ug/mL (10-20) H 11/15/17 13:00 - Physical Exam Vitals and I&O: Vital Signs Temp 97.0 F 11/16/17 08:00 Pulse 86 11/16/17 08:35 Resp 18 11/16/17 08:00 BP 173/97 11/16/17 08:35 Pulse Ox 97 11/16/17 08:00 Intake & Output 11/15/17 11/16/17 11/16/17 18:59 06:59 18:59 Intake Total 1750 1100 Output Total 2200 900 Balance -450 200 Weight (lbs) 76.204 kg 76.204 kg Intake: Intake, IV Amount 250 250 Vancomycin HCl 1 gm In 250 250 Sodium Chloride 0.9% 250 ml @ 165 mls/hr IV Q12H [facility] Rx#:[id number] Oral 1500 850 Output: Urine 2200 900 Other: # Bowel Movements 1 Weight Source Bedscale Bedscale Active Medications: Current Medications Acetaminophen (Tylenol) 650 mg PO Q6H PRN PRN Reason: mild to moderate pain Stop: 12/30/17 23:24 Last Admin: 11/15/17 02:33 Dose: 650 mg Acetaminophen/Hydrocodone Bitart ([place] 5mg/325mg) 1 tab PO Q6H PRN PRN Reason: Pain (Moderate) Stop: 12/30/17 23:24 Last Admin: 11/14/17 05:34 Dose: 1 tab Allopurinol (Zyloprim) 100 mg PO DAILY [facility] Stop: 12/30/17 23:24 Last Admin: 11/16/17 08:35 Dose: 100 mg [place] Oil/[place] Balsam/Trypsin (Venelex) 1 appl TP DAILY [facility] Stop: 12/30/17 23:24 Last Admin: 11/16/17 08:44 Dose: 1 appl Clonazepam (Klonopin) 1 mg PO BID [facility] PRN Reason: Protocol Stop: 12/31/17 09:59 Last Admin: 11/16/17 08:36 Dose: 1 mg Docusate Sodium (Colace) 100 mg PO DAILY [facility] Stop: 01/15/18 08:59 Last Admin: 11/16/17 08:36 Dose: 100 mg Donepezil HCl (Aricept) 10 mg PO DAILY [facility] Stop: 01/12/18 08:00 Last Admin: 11/16/17 08:35 Dose: 10 mg Doxycycline Hyclate (Vibramycin) 100 mg PO Q12HR [facility] Stop: 01/11/18 08:59 Last Admin: 11/16/17 08:35 Dose: 100 mg Famotidine (Pepcid) 20 mg PO BID [facility] Stop: 12/30/17 23:24 Last Admin: 11/16/17 08:35 Dose: 20 mg Fluconazole (Diflucan) 100 mg PO DAILY [facility] Stop: 12/30/17 23:24 Last Admin: 11/16/17 08:35 Dose: 100 mg Heparin Sodium (Porcine) (Heparin) 5,000 units SUBQ Q12HR [facility] PRN Reason: Protocol Stop: 12/30/17 23:24 Last Admin: 11/16/17 08:38 Dose: 5,000 units Vancomycin HCl 1 gm/ Sodium (Chloride) 250 mls @ 165 mls/hr IV Q12H [facility] Stop: 01/10/18 13:59 Last Admin: 11/16/17 13:24 Dose: 165 mls/hr Insulin Aspart (Novolog Insulin Sliding Scale) 0 units SUBQ ACHS [facility] PRN Reason: Protocol Stop: 12/31/17 07:29 Last Admin: 11/16/17 17:09 Dose: Not Given Insulin Detemir (Levemir Insulin) 20 units SUBQ DAILY [facility] PRN Reason: Protocol Stop: 01/12/18 06:20 Last Admin: 11/16/17 08:38 Dose: 20 units Magnesium Hydroxide (Milk Of Magnesia) 30 ml PO HS PRN PRN Reason: Constipation Stop: 12/30/17 23:24 Metformin HCl (Glucophage) 1,000 mg PO DAILY [facility] Stop: 12/31/17 09:59 Last Admin: 11/16/17 08:35 Dose: 1,000 mg Metoprolol Succinate (Toprol Xl) 25 mg PO DAILY [facility] Stop: 12/30/17 23:24 Last Admin: 11/16/17 08:35 Dose: 25 mg Miscellaneous (Vte Chemical Prophylaxis Screen/ Admission) 1 ea [facility] PRN PRN PRN Reason: PROTOCOL Stop: 12/31/17 10:29 Olanzapine (Zyprexa Zydis) 10 mg PO BID [facility] PRN Reason: Protocol Stop: 01/05/18 07:53 Last Admin: 11/16/17 08:49 Dose: 10 mg Zolpidem Tartrate (Ambien) 5 mg PO HS PRN PRN Reason: insomnia Stop: 12/30/17 23:24 Last Admin: 11/03/17 19:55 Dose: 5 mg General: Alert, No acute distress HEENT: Atraumatic, PERRLA, EOMI Neck: Supple, JVD, +2 carotid pulse wo bruit Cardiovascular: Regular rate, Normal S1, Normal S2 Lungs: Clear to auscultation Abdomen: Bowel sounds, Soft Extremities: no Clubbing, no Cyanosis, no Edema Neurological: Sensation intact Skin: no Rash Psych/Mental Status: Other (psychosis) - Procedures Procedures: Procedures Procedure Code Date JEWEL MUSC/FASCIA 20 SQ CM/< [id number] 10/12/17 EXCISION OF RIGHT HIP MUSCLE, OPEN APPROACH [id number] 10/12/17 INTRODUCTION OF SERUM/TOX/VACCINE INTO MUSCLE, PERC APPROACH [id number] 10/12/17 Assessment/Plan - Assessment Assessment: S/P KEN S/P electrolyte imbalance Acute decomp of Psychosis Type 2 DM MRSA, Yeast UTI - Plan Plan: Lab - Result Diagrams 11/01/17 06:48 Current Medications Acetaminophen (Tylenol) 650 mg PO Q6H PRN PRN Reason: mild to moderate pain Stop: 12/30/17 23:24 Acetaminophen/Hydrocodone Bitart ([place] 5mg/325mg) 1 tab PO Q6H PRN PRN Reason: Pain (Moderate) Stop: 12/30/17 23:24 Allopurinol (Zyloprim) 100 mg PO DAILY [facility] Stop: 12/30/17 23:24 Last Admin: 11/01/17 10:54 Dose: 100 mg [place] Oil/[place] Balsam/Trypsin (Venelex) 1 appl TP DAILY [facility] Stop: 12/30/17 23:24 Last Admin: 11/01/17 11:02 Dose: 1 appl Clonazepam (Klonopin) 1 mg PO BID [facility] PRN Reason: Protocol Stop: 12/31/17 09:59 Famotidine (Pepcid) 20 mg PO BID [facility] Stop: 12/30/17 23:24 Last Admin: 11/01/17 10:54 Dose: 20 mg Fluconazole (Diflucan) 100 mg PO DAILY [facility] Stop: 12/30/17 23:24 Last Admin: 11/01/17 11:02 Dose: 100 mg Heparin Sodium (Porcine) (Heparin) 5,000 units SUBQ Q12HR [facility] PRN Reason: Protocol Stop: 12/30/17 23:24 Last Admin: 11/01/17 10:59 Dose: 5,000 units Levofloxacin (Levaquin Pb) 500 mg in 100 mls @ 100 mls/hr IV Q24H [facility] Stop: 12/31/17 11:59 Insulin Aspart (Novolog Insulin Sliding Scale) 0 units SUBQ ACHS [facility] PRN Reason: Protocol Stop: 12/30/17 23:24 Last Admin: 11/01/17 10:45 Dose: 2 units Insulin Aspart (Novolog Insulin Sliding Scale) 0 units SUBQ ACHS [facility] PRN Reason: Protocol Stop: 12/31/17 07:29 Insulin Detemir (Levemir Insulin) 18 units SUBQ DAILY [facility] PRN Reason: Protocol Stop: 12/30/17 23:24 Last Admin: 11/01/17 10:56 Dose: 18 units Lorazepam (Ativan) 0.5 mg PO Q6HR PRN; Protocol PRN Reason: agitation Stop: 12/30/17 23:24 Magnesium Hydroxide (Milk Of Magnesia) 30 ml PO HS PRN PRN Reason: Constipation Stop: 12/30/17 23:24 Metformin HCl (Glucophage) 1,000 mg PO DAILY [facility] Stop: 12/31/17 09:59 Metoprolol Succinate (Toprol Xl) 25 mg PO DAILY [facility] Stop: 12/30/17 23:24 Last Admin: 11/01/17 10:55 Dose: 25 mg Miscellaneous (Vte Chemical Prophylaxis Screen/ Admission) 1 ea [facility] PRN PRN PRN Reason: PROTOCOL Stop: 12/31/17 10:29 Olanzapine (Zyprexa Zydis) 5 mg PO DAILY [facility] PRN Reason: Protocol Stop: 12/31/17 09:59 Zolpidem Tartrate (Ambien) 5 mg PO HS PRN PRN Reason: insomnia Stop: 12/30/17 23:24 Lab - Result Diagrams 11/13/17 07:00 11/13/17 07:00 kidney fnc remain stable encourage po intake psych meds continueVanco W/ Diflucan awaiting placement will follow as needed Nutritional Asmnt/Malnutr-PDOC - Dietary Evaluation Malnutrition Findings (Please click <Entered> for more info): Nutritional Asmnt/Malnutrition Start: 11/05/17 16: 25 Text: Status: Complete Freq: Document 11/05/17 16:25 GREY (Rec: 11/05/17 16:31 [email or web address]) Nutritional Asmnt/Malnutrition Patient General Information Nutritional Screening Moderate Risk Diagnosis dehydration Pertinent Medical Hx/Surgical Hx DM, dementia, depression, psychosis, schizophrenia, chronic renal insuff Subjective Information Pt is agitated, on 1:1 sitter. Per EMR, PO intake 25-75%, avg 50%. Current Diet Order/ Nutrition Support pureed, CCHO 60gm Pertinent Medications novolov, levemir, glucophage Pertinent Labs 11/03- POC 181-316 Nutritional Hx/Data Height 1.8 m Height (Calculated Centimeters) 180.3 Current Weight (lbs) 77.111 kg Weight (Calculated Kilograms) 77.1 Weight (Calculated Grams) 07557.7 [place] Body Weight 172 Body Mass Index (BMI) 23.7 Weight Status Approriate GI Symptoms GI Symptoms None Last BM 11/03 Difficult in: None Skin Integrity/Comment: pressure ulcer, decubitus Current %PO Fair (50-74%) Estimated Nutritional Goals BEE in Kcals: Using Current wt Calories/Kcals/Kg 25-30 Kcals Calculated 2984-6949 Protein: Using Current wt Protein g/k-1.2 Protein Calculated 77-92 Fluid: ml 1925-2310ml (1ml/kcal) Nutritional Problem 1. Problem Problem altered nutrition related lab values Etiology hx of DM Signs/Symptoms: glucose 169, POC 181-316 Malnutrition Alert Protein-Calorie Malnutrition N/A Is there a minimum of two criteria No selected? Query Text:Check all the applicable criteria. A minimum of two criteria are recommended for diagnosis of either severe or non-severe malnutrition. Intervention/Recommendation Comments 1. Continue with current diet as ordered. 2. Monitor PO intake, wt, labs and skin integrity 3. F/U as moderate risk in 3-5 days, 11/08-11/10 Expected Outcomes/Goals Expected Outcomes/Goals 1. PO intake to meet at least 75% of nutritional needs. 2. Wt stability, skin to remain intact, labs to approach WNL.
--- NOTE | 2017-11-16 18:53 | Infectious Disease Prog Note ---
Infectious Disease Subjective - Review of Systems Service Date: 11/16/17 Subjective: No fever Infectious Disease Objective - Results Result Diagrams: 11/13/17 07:00 11/13/17 07:00 Recent Labs: Laboratory Last Values WBC 10.2 Th/cmm (4.8-10.8) 11/13/17 07:00 RBC 4.18 Mil/cmm (3.80-5.80) 11/13/17 07:00 Hgb 12.5 gm/dL (12-16) 11/13/17 07:00 Hct 37.9 % (41.0-60) L 11/13/17 07:00 MCV 90.6 fl (80-99) 11/13/17 07:00 MCH 29.9 pg (27.0-31.0) 11/13/17 07:00 MCHC Differential 33.0 pg (28.0-36.0) 11/13/17 07:00 RDW 16.5 % (11.5-20.0) 11/13/17 07:00 Plt Count 283 Th/cmm (150-400) 11/13/17 07:00 MPV 8.0 fl 11/13/17 07:00 Neutrophils % 64.6 % (40.0-80.0) 11/13/17 07:00 Lymphocytes % 26.9 % (20.0-50.0) 11/13/17 07:00 Monocytes % 5.3 % (2.0-10.0) 11/13/17 07:00 Eosinophils % 2.8 % (0.0-5.0) 11/13/17 07:00 Basophils % 0.4 % (0.0-2.0) 11/13/17 07:00 PT 9.5 SECONDS (9.5-11.5) 11/05/17 21:35 INR 0.91 (0.5-1.4) 11/05/17 21:35 Sodium 132 mEq/L (136-145) L 11/13/17 07:00 Potassium 3.9 mEq/L (3.5-5.1) 11/13/17 07:00 Chloride 99 mEq/L (98-107) 11/13/17 07:00 Carbon Dioxide 23.2 mEq/L (21.0-31.0) 11/13/17 07:00 Anion Gap 13.7 (7.0-16.0) 11/13/17 07:00 BUN 10 mg/dL (7-25) 11/13/17 07:00 Creatinine 0.9 mg/dL (0.7-1.3) 11/13/17 07:00 Est GFR ( Amer) TNP 11/13/17 07:00 Est GFR (Non-Af Amer) TNP 11/13/17 07:00 BUN/Creatinine Ratio 11.1 11/13/17 07:00 Glucose 256 mg/dL (70-105) H 11/13/17 07:00 POC Glucose 144 MG/DL (70 - 105) H 11/16/17 16:22 Hemoglobin A1c % 8.8 % (4.0-6.0) H 11/13/17 07:00 Calcium 8.7 mg/dL (8.6-10.3) 11/13/17 07:00 Urine Source [place]RE [place] 11/11/17 21:30 Urine Color YELLOW 11/11/17 21:30 Urine Clarity HAZY (CLEAR) 11/11/17 21:30 Urine pH 5.5 (4.6 - 8.0) 11/11/17 21:30 Ur Specific [place] 1.010 (1.005-1.030) 11/11/17 21:30 Urine Protein NEGATIVE mg/dL (NEGATIVE) 11/11/17 21:30 Urine Glucose (UA) >=1000 mg/dL (NEGATIVE) H 11/11/17 21:30 Urine Ketones NEGATIVE mg/dL (NEGATIVE) 11/11/17 21:30 Urine Blood LARGE (NEGATIVE) H 11/11/17 21:30 Urine Nitrate NEGATIVE (NEGATIVE) 11/11/17 21:30 Urine Bilirubin NEGATIVE (NEGATIVE) 11/11/17 21:30 Urine Urobilinogen 0.2 E.U./dL (0.2 - 1.0) 11/11/17 21:30 Ur Leukocyte Esterase SMALL (NEGATIVE) H 11/11/17 21:30 Urine RBC 10-25 /hpf (0-5) H 11/11/17 21:30 Urine WBC 2-5 /hpf (0-5) 11/11/17 21:30 Ur Epithelial Cells OCCASIONAL /lpf (FEW) 11/11/17 21:30 Urine Bacteria FEW /hpf (NONE SEEN) 11/11/17 21:30 Urine Yeast FEW /hpf (NONE SEEN) H 11/11/17 21:30 Vancomycin Trough 21.0 ug/mL (10-20) H 11/15/17 13:00 - Physical Exam Vitals and I&O: Vital Signs Temp 98.4 F 11/16/17 16:00 Pulse 84 11/16/17 16:00 Resp 18 11/16/17 16:00 BP 173/97 11/16/17 08:35 Pulse Ox 98 11/16/17 16:00 Intake & Output 11/15/17 11/16/17 11/16/17 18:59 06:59 18:59 Intake Total 1750 1100 1350 Output Total 2200 900 2000 Balance -450 200 -650 Weight (lbs) 76.204 kg 76.204 kg 76.204 kg Intake: Intake, IV Amount 250 250 250 Vancomycin HCl 1 gm In 250 250 250 Sodium Chloride 0.9% 250 ml @ 165 mls/hr IV Q12H [facility] Rx#:[id number] Oral [id number] Output: Urine 2200 900 2000 Other: # Bowel Movements 1 0 Weight Source Bedscale Bedscale Bedscale Active Medications: Current Medications Acetaminophen (Tylenol) 650 mg PO Q6H PRN PRN Reason: mild to moderate pain Stop: 12/30/17 23:24 Last Admin: 11/15/17 02:33 Dose: 650 mg Acetaminophen/Hydrocodone Bitart ([place] 5mg/325mg) 1 tab PO Q6H PRN PRN Reason: Pain (Moderate) Stop: 12/30/17 23:24 Last Admin: 11/14/17 05:34 Dose: 1 tab Allopurinol (Zyloprim) 100 mg PO DAILY [facility] Stop: 12/30/17 23:24 Last Admin: 11/16/17 08:35 Dose: 100 mg [place] Oil/[place] Balsam/Trypsin (Venelex) 1 appl TP DAILY [facility] Stop: 12/30/17 23:24 Last Admin: 11/16/17 08:44 Dose: 1 appl Clonazepam (Klonopin) 1 mg PO BID IMMANUEL PRN Reason: Protocol Stop: 12/31/17 09:59 Last Admin: 11/16/17 17:20 Dose: 1 mg Docusate Sodium (Colace) 100 mg PO DAILY [facility] Stop: 01/15/18 08:59 Last Admin: 11/16/17 08:36 Dose: 100 mg Donepezil HCl (Aricept) 10 mg PO DAILY I[facility] Stop: 01/12/18 08:00 Last Admin: 11/16/17 08:35 Dose: 10 mg Doxycycline Hyclate (Vibramycin) 100 mg PO Q12HR [facility] Stop: 01/11/18 08:59 Last Admin: 11/16/17 08:35 Dose: 100 mg Famotidine (Pepcid) 20 mg PO BID IMMANUEL Stop: 12/30/17 23:24 Last Admin: 11/16/17 17:20 Dose: 20 mg Fluconazole (Diflucan) 100 mg PO DAILY [facility] Stop: 12/30/17 23:24 Last Admin: 11/16/17 08:35 Dose: 100 mg Heparin Sodium (Porcine) (Heparin) 5,000 units SUBQ Q12HR IMMANUEL PRN Reason: Protocol Stop: 12/30/17 23:24 Last Admin: 11/16/17 08:38 Dose: 5,000 units Vancomycin HCl 1 gm/ Sodium (Chloride) 250 mls @ 165 mls/hr IV Q12H [facility] Stop: 01/10/18 13:59 Last Infusion: 11/16/17 18:23 Dose: Infused Insulin Aspart (Novolog Insulin Sliding Scale) 0 units SUBQ ACHS [facility]MM[facility]UEL PRN Reason: Protocol Stop: 12/31/17 07:29 Last Admin: 11/16/17 17:09 Dose: Not Given Insulin Detemir (Levemir Insulin) 20 units SUBQ DAILY IMMANUEL PRN Reason: Protocol Stop: 01/12/18 06:20 Last Admin: 11/16/17 08:38 Dose: 20 units Magnesium Hydroxide (Milk Of Magnesia) 30 ml PO HS PRN PRN Reason: Constipation Stop: 12/30/17 23:24 Metformin HCl (Glucophage) 1,000 mg PO DAILY [facility] Stop: 12/31/17 09:59 Last Admin: 11/16/17 08:35 Dose: 1,000 mg Metoprolol Succinate (Toprol Xl) 25 mg PO DAILY [facility] Stop: 12/30/17 23:24 Last Admin: 11/16/17 08:35 Dose: 25 mg Miscellaneous (Vte Chemical Prophylaxis Screen/ Admission) 1 ea MC PRN PRN PRN Reason: PROTOCOL Stop: 12/31/17 10:29 Olanzapine (Zyprexa Zydis) 10 mg PO BID IMMANUEL PRN Reason: Protocol Stop: 01/05/18 07:53 Last Admin: 11/16/17 17:20 Dose: 10 mg Zolpidem Tartrate (Ambien) 5 mg PO HS PRN PRN Reason: insomnia Stop: 12/30/17 23:24 Last Admin: 11/03/17 19:55 Dose: 5 mg General: no acute distress, well developed, well nourished HEENT: atraumatic, normocephalic, PERRLA, EOMI Neck: supple, no thyromegaly Cardiovascular: S1S2, regular Lungs: clear to auscultation bilaterally, clear to percussion Abdomen: soft, no tender, no distended Extremities: no cyanosis, no clubbing Neurological: awake, alert Skin: other (sacral wound) - Procedures Procedures: Procedures Procedure Code Date JEWEL MUSC/FASCIA 20 SQ CM/< 60879 10/12/17 EXCISION OF RIGHT HIP MUSCLE, OPEN APPROACH [id number] 10/12/17 INTRODUCTION OF SERUM/TOX/VACCINE INTO MUSCLE, PERC APPROACH [id number] 10/12/17 Infectious Disease Assmt/Plan - Assessment Assessment: 1. Sacral decubitus ulcer. 2. UTI. Treated 3. Dementia. - Plan Plan: wound care. Nutritional Asmnt/Malnutr-PDOC - Dietary Evaluation Malnutrition Findings (Please click <Entered> for more info): Nutritional Asmnt/Malnutrition Start: 11/05/17 16: 25 Text: Status: Complete Freq: Document 11/05/17 16:25 LCDEMI (Rec: 11/05/17 16:[address] [email or web address] Nutritional Asmnt/Malnutrition Patient General Information Nutritional Screening Moderate Risk Diagnosis dehydration Pertinent Medical Hx/Surgical Hx DM, dementia, depression, psychosis, schizophrenia, chronic renal insuff Subjective Information Pt is agitated, on 1:1 sitter. Per EMR, PO intake 25-75%, avg 50%. Current Diet Order/ Nutrition Support pureed, CCHO 60gm Pertinent Medications novolov, levemir, glucophage Pertinent Labs POC 181-316 Nutritional Hx/Data Height 1.8 m Height (Calculated Centimeters) 180.3 Current Weight (lbs) 77.111 kg Weight (Calculated Kilograms) 77.1 Weight (Calculated Grams) 38967.7 [place] Body Weight 172 Body Mass Index (BMI) 23.7 Weight Status Approriate GI Symptoms GI Symptoms None Last BM 11/03 Difficult in: None Skin Integrity/Comment: pressure ulcer, decubitus Current %PO Fair (50-74%) Estimated Nutritional Goals BEE in Kcals: Using Current wt Calories/Kcals/Kg 25-30 Kcals Calculated 3958-2230 Protein: Using Current wt Protein g/k-1.2 Protein Calculated 77-92 Fluid: ml 1925-2310ml (1ml/kcal) Nutritional Problem 1. Problem Problem altered nutrition related lab values Etiology hx of DM Signs/Symptoms: glucose 169, POC 181-316 Malnutrition Alert Protein-Calorie Malnutrition N/A Is there a minimum of two criteria No selected? Query Text:Check all the applicable criteria. A minimum of two criteria are recommended for diagnosis of either severe or non-severe malnutrition. Intervention/Recommendation Comments 1. Continue with current diet as ordered. 2. Monitor PO intake, wt, labs and skin integrity 3. F/U as moderate risk in 3-5 days, 11/08-11/10 Expected Outcomes/Goals Expected Outcomes/Goals 1. PO intake to meet at least 75% of nutritional needs. 2. Wt stability, skin to remain intact, labs to approach WNL.
--- NOTE | 2017-11-17 07:31 | General Progress Note ---
Subjective - Review of Systems Service Date: 11/17/17 Subjective: Patient resting comfortably in bed. no acute distress. In good spirits today. pleasant. cooperative today. eating well. Blood Sugars improving. Will adjust dosage. Constipated this AM. Would like a stool softener.... Objective - Results Result Diagrams: 11/13/17 07:00 11/13/17 07:00 Recent Labs: Laboratory Last Values WBC 10.2 Th/cmm (4.8-10.8) 11/13/17 07:00 RBC 4.18 Mil/cmm (3.80-5.80) 11/13/17 07:00 Hgb 12.5 gm/dL (12-16) 11/13/17 07:00 Hct 37.9 % (41.0-60) L 11/13/17 07:00 MCV 90.6 fl (80-99) 11/13/17 07:00 MCH 29.9 pg (27.0-31.0) 11/13/17 07:00 MCHC Differential 33.0 pg (28.0-36.0) 11/13/17 07:00 RDW 16.5 % (11.5-20.0) 11/13/17 07:00 Plt Count 283 Th/cmm (150-400) 11/13/17 07:00 MPV 8.0 fl 11/13/17 07:00 Neutrophils % 64.6 % (40.0-80.0) 11/13/17 07:00 Lymphocytes % 26.9 % (20.0-50.0) 11/13/17 07:00 Monocytes % 5.3 % (2.0-10.0) 11/13/17 07:00 Eosinophils % 2.8 % (0.0-5.0) 11/13/17 07:00 Basophils % 0.4 % (0.0-2.0) 11/13/17 07:00 PT 9.5 SECONDS (9.5-11.5) 11/05/17 21:35 INR 0.91 (0.5-1.4) 11/05/17 21:35 Sodium 132 mEq/L (136-145) L 11/13/17 07:00 Potassium 3.9 mEq/L (3.5-5.1) 11/13/17 07:00 Chloride 99 mEq/L (98-107) 11/13/17 07:00 Carbon Dioxide 23.2 mEq/L (21.0-31.0) 11/13/17 07:00 Anion Gap 13.7 (7.0-16.0) 11/13/17 07:00 BUN 10 mg/dL (7-25) 11/13/17 07:00 Creatinine 0.9 mg/dL (0.7-1.3) 11/13/17 07:00 Est GFR ( Amer) TNP 11/13/17 07:00 Est GFR (Non-Af Amer) TNP 11/13/17 07:00 BUN/Creatinine Ratio 11.1 11/13/17 07:00 Glucose 256 mg/dL (70-105) H 11/13/17 07:00 POC Glucose 231 MG/DL (70 - 105) H 11/17/17 06:52 Hemoglobin A1c % 8.8 % (4.0-6.0) H 11/13/17 07:00 Calcium 8.7 mg/dL (8.6-10.3) 11/13/17 07:00 Urine Source [place]RE [place] 11/11/17 21:30 Urine Color YELLOW 11/11/17 21:30 Urine Clarity HAZY (CLEAR) 11/11/17 21:30 Urine pH 5.5 (4.6 - 8.0) 11/11/17 21:30 Ur Specific [place] 1.010 (1.005-1.030) 11/11/17 21:30 Urine Protein NEGATIVE mg/dL (NEGATIVE) 11/11/17 21:30 Urine Glucose (UA) >=1000 mg/dL (NEGATIVE) H 11/11/17 21:30 Urine Ketones NEGATIVE mg/dL (NEGATIVE) 11/11/17 21:30 Urine Blood LARGE (NEGATIVE) H 11/11/17 21:30 Urine Nitrate NEGATIVE (NEGATIVE) 11/11/17 21:30 Urine Bilirubin NEGATIVE (NEGATIVE) 11/11/17 21:30 Urine Urobilinogen 0.2 E.U./dL (0.2 - 1.0) 11/11/17 21:30 Ur Leukocyte Esterase SMALL (NEGATIVE) H 11/11/17 21:30 Urine RBC 10-25 /hpf (0-5) H 11/11/17 21:30 Urine WBC 2-5 /hpf (0-5) 11/11/17 21:30 Ur Epithelial Cells OCCASIONAL /lpf (FEW) 11/11/17 21:30 Urine Bacteria FEW /hpf (NONE SEEN) 11/11/17 21:30 Urine Yeast FEW /hpf (NONE SEEN) H 11/11/17 21:30 Vancomycin Trough 21.0 ug/mL (10-20) H 11/15/17 13:00 - Physical Exam Vitals and I&O: Vital Signs Temp 97.8 F 11/17/17 04:00 Pulse 82 11/17/17 04:00 Resp 16 11/17/17 04:00 BP 134/75 11/17/17 00:00 Pulse Ox 98 11/17/17 04:00 Intake & Output 11/16/17 11/17/17 11/17/17 18:59 06:59 18:59 Intake Total 1350 200 Output Total 2000 500 Balance -650 -300 Weight (lbs) 76.204 kg 76.204 kg Intake: Intake, IV Amount 250 Vancomycin HCl 1 gm In 250 Sodium Chloride 0.9% 250 ml @ 165 mls/hr IV Q12H [facility] Rx#:[id number] Oral 1100 200 Output: Urine 2000 500 Other: # Bowel Movements 0 1 Weight Source Bedscale Bedscale Active Medications: Current Medications Acetaminophen (Tylenol) 650 mg PO Q6H PRN PRN Reason: mild to moderate pain Stop: 12/30/17 23:24 Last Admin: 11/15/17 02:33 Dose: 650 mg Acetaminophen/Hydrocodone Bitart ([place] 5mg/325mg) 1 tab PO Q6H PRN PRN Reason: Pain (Moderate) Stop: 12/30/17 23:24 Last Admin: 11/14/17 05:34 Dose: 1 tab Allopurinol (Zyloprim) 100 mg PO DAILY [facility] Stop: 12/30/17 23:24 Last Admin: 11/16/17 08:35 Dose: 100 mg [place] Oil/[place] Balsam/Trypsin (Venelex) 1 appl TP DAILY [facility] Stop: 12/30/17 23:24 Last Admin: 11/16/17 08:44 Dose: 1 appl Clonazepam (Klonopin) 1 mg PO BID IMMANUEL PRN Reason: Protocol Stop: 12/31/17 09:59 Last Admin: 11/16/17 17:20 Dose: 1 mg Docusate Sodium (Colace) 100 mg PO DAILY [facility] Stop: 01/15/18 08:59 Last Admin: 11/16/17 08:36 Dose: 100 mg Donepezil HCl (Aricept) 10 mg PO DAILY [facility] Stop: 01/12/18 08:00 Last Admin: 11/16/17 08:35 Dose: 10 mg Doxycycline Hyclate (Vibramycin) 100 mg PO Q12HR [facility] Stop: 01/11/18 08:59 Last Admin: 11/16/17 20:31 Dose: 100 mg Famotidine (Pepcid) 20 mg PO BID IMM[facility]UEL Stop: 12/30/17 23:24 Last Admin: 11/16/17 17:20 Dose: 20 mg Fluconazole (Diflucan) 100 mg PO DAILY [facility] Stop: 12/30/17 23:24 Last Admin: 11/16/17 08:35 Dose: 100 mg Heparin Sodium (Porcine) (Heparin) 5,000 units SUBQ Q12HR IMM[facility]UEL PRN Reason: Protocol Stop: 12/30/17 23:24 Last Admin: 11/16/17 20:37 Dose: 5,000 units Vancomycin HCl 1 gm/ Sodium (Chloride) 250 mls @ 165 mls/hr IV Q12H [facility] Stop: 01/10/18 13:59 Last Admin: 11/17/17 01:03 Dose: 165 mls/hr Insulin Aspart (Novolog Insulin Sliding Scale) 0 units SUBQ ACHS [facility] PRN Reason: Protocol Stop: 12/31/17 07:29 Last Admin: 11/16/17 20:38 Dose: 4 units Insulin Detemir (Levemir Insulin) 20 units SUBQ DAILY [facility] PRN Reason: Protocol Stop: 01/12/18 06:20 Last Admin: 11/16/17 08:38 Dose: 20 units Magnesium Hydroxide (Milk Of Magnesia) 30 ml PO PRN PRN Reason: Constipation Stop: 12/30/17 23:24 Metformin HCl (Glucophage) 1,000 mg PO DAILY [facility] Stop: 12/31/17 09:59 Last Admin: 11/16/17 08:35 Dose: 1,000 mg Metoprolol Succinate (Toprol Xl) 25 mg PO DAILY [facility] Stop: 12/30/17 23:24 Last Admin: 11/16/17 08:35 Dose: 25 mg Miscellaneous (Vte Chemical Prophylaxis Screen/ Admission) 1 ea MC PRN PRN PRN Reason: PROTOCOL Stop: 12/31/17 10:29 Olanzapine (Zyprexa Zydis) 10 mg PO BID IMMANUEL PRN Reason: Protocol Stop: 01/05/18 07:53 Last Admin: 11/16/17 17:20 Dose: 10 mg Zolpidem Tartrate (Ambien) 5 mg PO HS PRN PRN Reason: insomnia Stop: 12/30/17 23:24 Last Admin: 11/03/17 19:55 Dose: 5 mg General: Alert, No acute distress HEENT: Atraumatic, PERRLA, EOMI Neck: Supple, JVD, +2 carotid pulse wo bruit Cardiovascular: Regular rate, Normal S1, Normal S2 Lungs: Clear to auscultation Abdomen: Bowel sounds, Soft Extremities: no Clubbing, no Cyanosis, no Edema Neurological: Sensation intact Skin: no Rash Psych/Mental Status: Other (psychosis) - Procedures Procedures: Procedures Procedure Code Date JEWEL MUSC/FASCIA 20 SQ CM/< 87051 10/12/17 EXCISION OF RIGHT HIP MUSCLE, OPEN APPROACH [id number] 10/12/17 INTRODUCTION OF SERUM/TOX/VACCINE INTO MUSCLE, PERC APPROACH [id number] 10/12/17 Assessment/Plan - Assessment Assessment: psychosis dementia Alzheimer's dementia diabetes mellitus not controlled. s/p wound debridement of sacral decubiti UTI hyperglycemia constipation - Plan Plan: continue current medications. will add doxycyline PO for hospice eval continue IV antibiotics stool softener Nutritional Asmnt/Malnutr-PDOC - Dietary Evaluation Malnutrition Findings (Please click <Entered> for more info): Nutritional Asmnt/Malnutrition Start: 11/05/17 16: 25 Text: Status: Complete Freq: Document 11/05/17 16:25 LCHENG (Rec: 11/05/17 16:31 LCHENG [email or web address]) Nutritional Asmnt/Malnutrition Patient General Information Nutritional Screening Moderate Risk Diagnosis dehydration Pertinent Medical Hx/Surgical Hx DM, dementia, depression, psychosis, schizophrenia, chronic renal insuff Subjective Information Pt is agitated, on 1:1 sitter. Per EMR, PO intake 25-75%, avg 50%. Current Diet Order/ Nutrition Support pureed, CCHO 60gm Pertinent Medications novolov, levemir, glucophage Pertinent Labs 11/03- POC 181-316 Nutritional Hx/Data Height 1.8 m Height (Calculated Centimeters) 180.3 Current Weight (lbs) 77.111 kg Weight (Calculated Kilograms) 77.1 Weight (Calculated Grams) 61926.7 [place] Body Weight 172 Body Mass Index (BMI) 23.7 Weight Status Approriate GI Symptoms GI Symptoms None Last BM 11/03 Difficult in: None Skin Integrity/Comment: pressure ulcer, decubitus Current %PO Fair (50-74%) Estimated Nutritional Goals BEE in Kcals: Using Current wt Calories/Kcals/Kg 25-30 Kcals Calculated 2881-6490 Protein: Using Current wt Protein g/k-1.2 Protein Calculated 77-92 Fluid: ml 1925-2310ml (1ml/kcal) Nutritional Problem 1. Problem Problem altered nutrition related lab values Etiology hx of DM Signs/Symptoms: glucose 169, POC 181-316 Malnutrition Alert Protein-Calorie Malnutrition N/A Is there a minimum of two criteria No selected? Query Text:Check all the applicable criteria. A minimum of two criteria are recommended for diagnosis of either severe or non-severe malnutrition. Intervention/Recommendation Comments 1. Continue with current diet as ordered. 2. Monitor PO intake, wt, labs and skin integrity 3. F/U as moderate risk in 3-5 days, 11/08-11/10 Expected Outcomes/Goals Expected Outcomes/Goals 1. PO intake to meet at least 75% of nutritional needs. 2. Wt stability, skin to remain intact, labs to approach WNL.
[2017-11-17] MEDS: INSULIN ASPART SLIDING SCALE 100 UNITS/ML UNIT SUBQ SCH ×4 (08:24→20:25)
[2017-11-17] MEDS: OLANZapine 5 mg Oral Disintegrating Tab PO SCH ×2 (08:30→16:40)
[2017-11-17] MEDS: Insulin Detemir 100 units/mL 10mL Vial SUBQ SCH (08:31)
[2017-11-17] MEDS: Venelex 60gm Tube TP SCH (12:15)
--- NOTE | 2017-11-17 14:20 | Infectious Disease Prog Note ---
Infectious Disease Subjective - Review of Systems Service Date: 11/17/17 Subjective: No fever Infectious Disease Objective - Results Result Diagrams: 11/13/17 07:00 11/17/17 13:00 Recent Labs: Laboratory Last Values WBC 10.2 Th/cmm (4.8-10.8) 11/13/17 07:00 RBC 4.18 Mil/cmm (3.80-5.80) 11/13/17 07:00 Hgb 12.5 gm/dL (12-16) 11/13/17 07:00 Hct 37.9 % (41.0-60) L 11/13/17 07:00 MCV 90.6 fl (80-99) 11/13/17 07:00 MCH 29.9 pg (27.0-31.0) 11/13/17 07:00 MCHC Differential 33.0 pg (28.0-36.0) 11/13/17 07:00 RDW 16.5 % (11.5-20.0) 11/13/17 07:00 Plt Count 283 Th/cmm (150-400) 11/13/17 07:00 MPV 8.0 fl 11/13/17 07:00 Neutrophils % 64.6 % (40.0-80.0) 11/13/17 07:00 Lymphocytes % 26.9 % (20.0-50.0) 11/13/17 07:00 Monocytes % 5.3 % (2.0-10.0) 11/13/17 07:00 Eosinophils % 2.8 % (0.0-5.0) 11/13/17 07:00 Basophils % 0.4 % (0.0-2.0) 11/13/17 07:00 PT 9.5 SECONDS (9.5-11.5) 11/05/17 21:35 INR 0.91 (0.5-1.4) 11/05/17 21:35 Sodium 132 mEq/L (136-145) L 11/13/17 07:00 Potassium 3.9 mEq/L (3.5-5.1) 11/13/17 07:00 Chloride 99 mEq/L (98-107) 11/13/17 07:00 Carbon Dioxide 23.2 mEq/L (21.0-31.0) 11/13/17 07:00 Anion Gap 13.7 (7.0-16.0) 11/13/17 07:00 BUN 15 mg/dL (7-25) 11/17/17 13:00 Creatinine 0.8 mg/dL (0.7-1.3) 11/17/17 13:00 Est GFR ( Amer) TNP 11/13/17 07:00 Est GFR (Non-Af Amer) TNP 11/13/17 07:00 BUN/Creatinine Ratio 11.1 11/13/17 07:00 Glucose 256 mg/dL (70-105) H 11/13/17 07:00 POC Glucose 284 MG/DL (70 - 105) H 11/17/17 12:13 Hemoglobin A1c % 8.8 % (4.0-6.0) H 11/13/17 07:00 Calcium 8.7 mg/dL (8.6-10.3) 11/13/17 07:00 Urine Source ANDRE [place] 11/11/17 21:30 Urine Color YELLOW 11/11/17 21:30 Urine Clarity HAZY (CLEAR) 11/11/17 21:30 Urine pH 5.5 (4.6 - 8.0) 11/11/17 21:30 Ur Specific [place] 1.010 (1.005-1.030) 11/11/17 21:30 Urine Protein NEGATIVE mg/dL (NEGATIVE) 11/11/17 21:30 Urine Glucose (UA) >=1000 mg/dL (NEGATIVE) H 11/11/17 21:30 Urine Ketones NEGATIVE mg/dL (NEGATIVE) 11/11/17 21:30 Urine Blood LARGE (NEGATIVE) H 11/11/17 21:30 Urine Nitrate NEGATIVE (NEGATIVE) 11/11/17 21:30 Urine Bilirubin NEGATIVE (NEGATIVE) 11/11/17 21:30 Urine Urobilinogen 0.2 E.U./dL (0.2 - 1.0) 11/11/17 21:30 Ur Leukocyte Esterase SMALL (NEGATIVE) H 11/11/17 21:30 Urine RBC 10-25 /hpf (0-5) H 11/11/17 21:30 Urine WBC 2-5 /hpf (0-5) 11/11/17 21:30 Ur Epithelial Cells OCCASIONAL /lpf (FEW) 11/11/17 21:30 Urine Bacteria FEW /hpf (NONE SEEN) 11/11/17 21:30 Urine Yeast FEW /hpf (NONE SEEN) H 11/11/17 21:30 Vancomycin Trough 21.0 ug/mL (10-20) H 11/15/17 13:00 - Physical Exam Vitals and I&O: Vital Signs Temp 97.5 F 11/17/17 12:01 Pulse 79 11/17/17 12:01 Resp 17 11/17/17 12:01 BP 142/76 11/17/17 12:01 Pulse Ox 98 11/17/17 12:01 Intake & Output 11/16/17 11/17/17 11/17/17 18:59 06:59 18:59 Intake Total 1350 200 200 Output Total 2000 500 Balance -650 -300 200 Weight (lbs) 76.204 kg 76.204 kg 76.204 kg Intake: Intake, IV Amount 250 Vancomycin HCl 1 gm In 250 Sodium Chloride 0.9% 250 ml @ 165 mls/hr IV Q12H [facility] Rx#:[id number] Oral 1100 200 200 Output: Urine 2000 500 Other: # Bowel Movements 0 1 Weight Source Bedscale Bedscale Bedscale Active Medications: Current Medications Acetaminophen (Tylenol) 650 mg PO Q6H PRN PRN Reason: mild to moderate pain Stop: 12/30/17 23:24 Last Admin: 11/15/17 02:33 Dose: 650 mg Acetaminophen/Hydrocodone Bitart ([place] 5mg/325mg) 1 tab PO Q6H PRN PRN Reason: Pain (Moderate) Stop: 12/30/17 23:24 Last Admin: 11/14/17 05:34 Dose: 1 tab Allopurinol (Zyloprim) 100 mg PO DAILY [facility] Stop: 12/30/17 23:24 Last Admin: 11/17/17 08:31 Dose: 100 mg [place] Oil/[place]og[place]ese Balsam/Trypsin (Venelex) [address] [facility] Stop: 12/30/17 23:24 Last Admin: 11/17/17 12:15 Dose: 1 appl Clonazepam (Klonopin) 1 mg PO BID [facility] PRN Reason: Protocol Stop: 12/31/17 09:59 Last Admin: 11/17/17 08:31 Dose: 1 mg Docusate Sodium (Colace) [address] [facility] Stop: 05/31/18 08:59 Last Admin: 11/17/17 08:31 Dose: 100 mg Donepezil HCl (Aricept) 10 mg PO DAILY [facility] Stop: 01/12/18 08:00 Last Admin: 11/17/17 08:30 Dose: 10 mg Doxycycline Hyclate (Vibramycin) 100 mg PO Q12HR [facility] Stop: 01/11/18 08:59 Last Admin: 11/17/17 08:31 Dose: 100 mg Famotidine (Pepcid) 20 mg PO BID [facility] Stop: 12/30/17 23:24 Last Admin: 11/17/17 08:31 Dose: 20 mg Fluconazole (Diflucan) 100 mg PO DAILY [facility] Stop: 12/30/17 23:24 Last Admin: 11/17/17 08:30 Dose: 100 mg Heparin Sodium (Porcine) (Heparin) 5,000 units SUBQ Q12HR [facility] PRN Reason: Protocol Stop: 12/30/17 23:24 Last Admin: 11/17/17 08:31 Dose: Not Given Vancomycin HCl 1.5 gm/ Sodium (Chloride) 500 mls @ 250 mls/hr IV Q24H [facility] Stop: 01/17/18 08:59 Insulin Aspart (Novolog Insulin Sliding Scale) 0 units SUBQ ACHS [facility] PRN Reason: Protocol Stop: 12/31/17 07:29 Last Admin: 11/17/17 12:18 Dose: 6 units Insulin Detemir (Levemir Insulin) 20 units SUBQ DAILY [facility] PRN Reason: Protocol Stop: 01/12/18 06:20 Last Admin: 11/17/17 08:31 Dose: Not Given Magnesium Hydroxide (Milk Of Magnesia) 30 ml PO PRN PRN Reason: Constipation Stop: 12/30/17 23:24 Metformin HCl (Glucophage) 1,000 mg PO DAILY [facility] Stop: 12/31/17 09:59 Last Admin: 11/17/17 08:30 Dose: 1,000 mg Metoprolol Succinate (Toprol Xl) 25 mg PO DAILY [facility] Stop: 12/30/17 23:24 Last Admin: 11/17/17 08:25 Dose: 25 mg Miscellaneous (Vte Chemical Prophylaxis Screen/ Admission) 1 ea PRN PRN PRN Reason: PROTOCOL Stop: 12/31/17 10:29 Miscellaneous (Vancomycin Iv Per Pharmacy) 1 ea DAILY [facility] Stop: 01/16/18 08:59 Olanzapine (Zyprexa Zydis) 10 mg PO BID [facility] PRN Reason: Protocol Stop: 01/05/18 07:53 Last Admin: 11/17/17 08:30 Dose: 10 mg Zolpidem Tartrate (Ambien) 5 mg PO HS PRN PRN Reason: insomnia Stop: 12/30/17 23:24 Last Admin: 11/03/17 19:55 Dose: 5 mg General: no acute distress, well developed, well nourished HEENT: atraumatic, normocephalic, PERRLA, EOMI, moist mucous membrane Neck: supple, no thyromegaly Cardiovascular: S1S2, regular Lungs: clear to auscultation bilaterally, clear to percussion Abdomen: soft, no tender, no distended, no rebound Extremities: no cyanosis, no clubbing, no edema Neurological: awake, alert Skin: other (sacral wound.) - Procedures Procedures: Procedures Procedure Code Date JEWEL MUSC/FASCIA 20 SQ CM/< 20793 10/12/17 EXCISION OF RIGHT HIP MUSCLE, OPEN APPROACH [id number] 10/12/17 INTRODUCTION OF SERUM/TOX/VACCINE INTO MUSCLE, PERC APPROACH [id number] 10/12/17 Infectious Disease Assmt/Plan - Assessment Assessment: 1. Sacral decubitus ulcer. 2. UTI. Treated 3. Dementia. - Plan Plan: wound care. Nutritional Asmnt/Malnutr-PDOC - Dietary Evaluation Malnutrition Findings (Please click <Entered> for more info): Nutritional Asmnt/Malnutrition Start: 11/05/17 16: 25 Text: Status: Complete Freq: Document 11/05/17 16:25 DEMI (Rec: 11/05/17 16:31 HEN [email or web address]) Nutritional Asmnt/Malnutrition Patient General Information Nutritional Screening Moderate Risk Diagnosis dehydration Pertinent Medical Hx/Surgical Hx DM, dementia, depression, psychosis, schizophrenia, chronic renal insuff Subjective Information Pt is agitated, on 1:1 sitter. Per EMR, PO intake 25-75%, avg 50%. Current Diet Order/ Nutrition Support pureed, CCHO 60gm Pertinent Medications novolov, levemir, glucophage Pertinent Labs POC 181-316 Nutritional Hx/Data Height 1.8 m Height (Calculated Centimeters) 180.3 Current Weight (lbs) 77.111 kg Weight (Calculated Kilograms) 77.1 Weight (Calculated Grams) 43870.7 [place] Body Weight 172 Body Mass Index (BMI) 23.7 Weight Status Approriate GI Symptoms GI Symptoms None Last BM 11/03 Difficult in: None Skin Integrity/Comment: pressure ulcer, decubitus Current %PO Fair (50-74%) Estimated Nutritional Goals BEE in Kcals: Using Current wt Calories/Kcals/Kg 25-30 Kcals Calculated 9359-5583 Protein: Using Current wt Protein g/k-1.2 Protein Calculated 77-92 Fluid: ml 1925-2310ml (1ml/kcal) Nutritional Problem 1. Problem Problem altered nutrition related lab values Etiology hx of DM Signs/Symptoms: glucose 169, POC 181-316 Malnutrition Alert Protein-Calorie Malnutrition N/A Is there a minimum of two criteria No selected? Query Text:Check all the applicable criteria. A minimum of two criteria are recommended for diagnosis of either severe or non-severe malnutrition. Intervention/Recommendation Comments 1. Continue with current diet as ordered. 2. Monitor PO intake, wt, labs and skin integrity 3. F/U as moderate risk in 3-5 days, 11/08-11/10 Expected Outcomes/Goals Expected Outcomes/Goals 1. PO intake to meet at least 75% of nutritional needs. 2. Wt stability, skin to remain intact, labs to approach WNL.
--- NOTE | 2017-11-18 07:48 | General Progress Note ---
Subjective - Review of Systems Service Date: 11/18/17 Subjective: Patient resting comfortably in bed. no acute distress. In good spirits today. pleasant. cooperative today. eating well. Blood Sugars improving. Will adjust dosage. Constipated this AM. Would like a stool softener.... Objective - Results Result Diagrams: 11/13/17 07:00 11/17/17 13:00 Recent Labs: Laboratory Last Values WBC 10.2 Th/cmm (4.8-10.8) 11/13/17 07:00 RBC 4.18 Mil/cmm (3.80-5.80) 11/13/17 07:00 Hgb 12.5 gm/dL (12-16) 11/13/17 07:00 Hct 37.9 % (41.0-60) L 11/13/17 07:00 MCV 90.6 fl (80-99) 11/13/17 07:00 MCH 29.9 pg (27.0-31.0) 11/13/17 07:00 MCHC Differential 33.0 pg (28.0-36.0) 11/13/17 07:00 RDW 16.5 % (11.5-20.0) 11/13/17 07:00 Plt Count 283 Th/cmm (150-400) 11/13/17 07:00 MPV 8.0 fl 11/13/17 07:00 Neutrophils % 64.6 % (40.0-80.0) 11/13/17 07:00 Lymphocytes % 26.9 % (20.0-50.0) 11/13/17 07:00 Monocytes % 5.3 % (2.0-10.0) 11/13/17 07:00 Eosinophils % 2.8 % (0.0-5.0) 11/13/17 07:00 Basophils % 0.4 % (0.0-2.0) 11/13/17 07:00 PT 9.5 SECONDS (9.5-11.5) 11/05/17 21:35 INR 0.91 (0.5-1.4) 11/05/17 21:35 Sodium 132 mEq/L (136-145) L 11/13/17 07:00 Potassium 3.9 mEq/L (3.5-5.1) 11/13/17 07:00 Chloride 99 mEq/L (98-107) 11/13/17 07:00 Carbon Dioxide 23.2 mEq/L (21.0-31.0) 11/13/17 07:00 Anion Gap 13.7 (7.0-16.0) 11/13/17 07:00 BUN 15 mg/dL (7-25) 11/17/17 13:00 Creatinine 0.8 mg/dL (0.7-1.3) 11/17/17 13:00 Est GFR ( Amer) TNP 11/13/17 07:00 Est GFR (Non-Af Amer) TNP 11/13/17 07:00 BUN/Creatinine Ratio 11.1 11/13/17 07:00 Glucose 256 mg/dL (70-105) H 11/13/17 07:00 POC Glucose 256 MG/DL (70 - 105) H 11/18/17 06:41 Hemoglobin A1c % 8.8 % (4.0-6.0) H 11/13/17 07:00 Calcium 8.7 mg/dL (8.6-10.3) 11/13/17 07:00 Urine Source [place]RE [place] 11/11/17 21:30 Urine Color YELLOW 11/11/17 21:30 Urine Clarity HAZY (CLEAR) 11/11/17 21:30 Urine pH 5.5 (4.6 - 8.0) 11/11/17 21:30 Ur Specific [place] 1.010 (1.005-1.030) 11/11/17 21:30 Urine Protein NEGATIVE mg/dL (NEGATIVE) 11/11/17 21:30 Urine Glucose (UA) >=1000 mg/dL (NEGATIVE) H 11/11/17 21:30 Urine Ketones NEGATIVE mg/dL (NEGATIVE) 11/11/17 21:30 Urine Blood LARGE (NEGATIVE) H 11/11/17 21:30 Urine Nitrate NEGATIVE (NEGATIVE) 11/11/17 21:30 Urine Bilirubin NEGATIVE (NEGATIVE) 11/11/17 21:30 Urine Urobilinogen 0.2 E.U./dL (0.2 - 1.0) 11/11/17 21:30 Ur Leukocyte Esterase SMALL (NEGATIVE) H 11/11/17 21:30 Urine RBC 10-25 /hpf (0-5) H 11/11/17 21:30 Urine WBC 2-5 /hpf (0-5) 11/11/17 21:30 Ur Epithelial Cells OCCASIONAL /lpf (FEW) 11/11/17 21:30 Urine Bacteria FEW /hpf (NONE SEEN) 11/11/17 21:30 Urine Yeast FEW /hpf (NONE SEEN) H 11/11/17 21:30 Vancomycin Trough 21.0 ug/mL (10-20) H 11/15/17 13:00 Random Vancomycin 23.1 ug/mL (5.0-40.0) 11/17/17 13:00 - Physical Exam Vitals and I&O: Vital Signs Temp 98.4 F 11/18/17 04:07 Pulse 85 11/18/17 04:07 Resp 17 11/18/17 04:07 BP 141/67 11/18/17 04:07 Pulse Ox 99 11/18/17 04:07 Intake & Output 11/17/17 11/18/17 11/18/17 18:59 06:59 18:59 Intake Total 600 Output Total 600 750 Balance 0 -750 Weight (lbs) 76.204 kg 75.841 kg Intake: Oral 600 Output: Urine 600 750 Other: # Bowel Movements 2 Weight Source Bedscale Bedscale Active Medications: Current Medications Acetaminophen (Tylenol) 650 mg PO Q6H PRN PRN Reason: mild to moderate pain Stop: 12/30/17 23:24 Last Admin: 11/15/17 02:33 Dose: 650 mg Acetaminophen/Hydrocodone Bitart ([place] 5mg/325mg) 1 tab PO Q6H PRN PRN Reason: Pain (Moderate) Stop: 12/30/17 23:24 Last Admin: 11/14/17 05:34 Dose: 1 tab Allopurinol (Zyloprim) 100 mg PO DAILY [facility] Stop: 12/30/17 23:24 Last Admin: 11/17/17 08:31 Dose: 100 mg [place] Oil/[place] Balsam/Trypsin (Venelex) 1 appl TP DAILY [facility] Stop: 12/30/17 23:24 Last Admin: 11/17/17 12:15 Dose: 1 appl Clonazepam (Klonopin) 1 mg PO BID [facility] PRN Reason: Protocol Stop: 12/31/17 09:59 Last Admin: 11/17/17 16:40 Dose: 1 mg Docusate Sodium (Colace) 100 mg PO DAILY [facility] Stop: 01/15/18 08:59 Last Admin: 11/17/17 08:31 Dose: 100 mg Donepezil HCl (Aricept) 10 mg PO DAILY [facility] Stop: 01/12/18 08:00 Last Admin: 11/17/17 08:30 Dose: 10 mg Doxycycline Hyclate (Vibramycin) 100 mg PO Q12HR [facility] Stop: 01/11/18 08:59 Last Admin: 11/17/17 20:25 Dose: 100 mg Famotidine (Pepcid) 20 mg PO BID [facility] Stop: 12/30/17 23:24 Last Admin: 11/17/17 16:40 Dose: 20 mg Fluconazole (Diflucan) 100 mg PO DAILY [facility] Stop: 12/30/17 23:24 Last Admin: 11/17/17 08:30 Dose: 100 mg Heparin Sodium (Porcine) (Heparin) 5,000 units SUBQ Q12HR [facility] PRN Reason: Protocol Stop: 12/30/17 23:24 Last Admin: 11/17/17 20:25 Dose: 5,000 units Vancomycin HCl 1.5 gm/ Sodium (Chloride) 500 mls @ 250 mls/hr IV Q24H [facility] Stop: 01/17/18 08:59 Insulin Aspart (Novolog Insulin Sliding Scale) 0 units SUBQ ACHS [facility] PRN Reason: Protocol Stop: 12/31/17 07:29 Last Admin: 11/17/17 20:25 Dose: 8 units Insulin Detemir (Levemir Insulin) 20 units SUBQ DAILY [facility] PRN Reason: Protocol Stop: 01/12/18 06:20 Last Admin: 11/17/17 08:31 Dose: Not Given Magnesium Hydroxide (Milk Of Magnesia) 30 ml PO HS PRN PRN Reason: Constipation Stop: 12/30/17 23:24 Metformin HCl (Glucophage) 1,000 mg PO DAILY [facility] Stop: 12/31/17 09:59 Last Admin: 11/17/17 08:30 Dose: 1,000 mg Metoprolol Succinate (Toprol Xl) 25 mg PO DAILY [facility] Stop: 12/30/17 23:24 Last Admin: 11/17/17 08:25 Dose: 25 mg Miscellaneous (Vte Chemical Prophylaxis Screen/ Admission) 1 ea MC PRN PRN PRN Reason: PROTOCOL Stop: 12/31/17 10:29 Miscellaneous (Vancomycin Iv Per Pharmacy) 1 ea MC DAILY [facility] Stop: 01/16/18 08:59 Olanzapine (Zyprexa Zydis) 10 mg PO BID [facility] PRN Reason: Protocol Stop: 01/05/18 07:53 Last Admin: 11/17/17 16:40 Dose: 10 mg Zolpidem Tartrate (Ambien) 5 mg PO HS PRN PRN Reason: insomnia Stop: 12/30/17 23:24 Last Admin: 11/03/17 19:55 Dose: 5 mg General: Alert, No acute distress HEENT: Atraumatic, PERRLA, EOMI Neck: Supple, JVD, +2 carotid pulse wo bruit Cardiovascular: Regular rate, Normal S1, Normal S2 Lungs: Clear to auscultation Abdomen: Bowel sounds, Soft Extremities: no Clubbing, no Cyanosis, no Edema Neurological: Sensation intact Skin: no Rash Psych/Mental Status: Other (psychosis) - Procedures Procedures: Procedures Procedure Code Date JEWEL MUSC/FASCIA 20 SQ CM/< 19514 10/12/17 EXCISION OF RIGHT HIP MUSCLE, OPEN APPROACH [id number] 10/12/17 INTRODUCTION OF SERUM/TOX/VACCINE INTO MUSCLE, PERC APPROACH [id number] 10/12/17 Assessment/Plan - Assessment Assessment: psychosis dementia Alzheimer's dementia diabetes mellitus not controlled. s/p wound debridement of sacral decubiti UTI hyperglycemia constipation - Plan Plan: continue current medications. will add doxycyline PO for hospice eval continue IV antibiotics stool softener Nutritional Asmnt/Malnutr-PDOC - Dietary Evaluation Malnutrition Findings (Please click <Entered> for more info): Nutritional Asmnt/Malnutrition Start: 11/05/17 16: 25 Text: Status: Complete Freq: Document 11/05/17 16:25 HEN (Rec: 11/05/17 16:31 LCHENG [email or web address]) Nutritional Asmnt/Malnutrition Patient General Information Nutritional Screening Moderate Risk Diagnosis dehydration Pertinent Medical Hx/Surgical Hx DM, dementia, depression, psychosis, schizophrenia, chronic renal insuff Subjective Information Pt is agitated, on 1:1 sitter. Per EMR, PO intake 25-75%, avg 50%. Current Diet Order/ Nutrition Support pureed, CCHO 60gm Pertinent Medications novolov, levemir, glucophage Pertinent Labs 3/19-21 POC 181-316 Nutritional Hx/Data Height 1.8 m Height (Calculated Centimeters) 180.3 Current Weight (lbs) 77.111 kg Weight (Calculated Kilograms) 77.1 Weight (Calculated Grams) 61191.7 [place] Body Weight 172 Body Mass Index (BMI) 23.7 Weight Status Approriate GI Symptoms GI Symptoms None Last BM 11/03 Difficult in: None Skin Integrity/Comment: pressure ulcer, decubitus Current %PO Fair (50-74%) Estimated Nutritional Goals BEE in Kcals: Using Current wt Calories/Kcals/Kg 25-30 Kcals Calculated 4214-9470 Protein: Using Current wt Protein g/k-1.2 Protein Calculated 77-92 Fluid: ml 1925-2310ml (1ml/kcal) Nutritional Problem 1. Problem Problem altered nutrition related lab values Etiology hx of DM Signs/Symptoms: glucose 169, POC 181-316 Malnutrition Alert Protein-Calorie Malnutrition N/A Is there a minimum of two criteria No selected? Query Text:Check all the applicable criteria. A minimum of two criteria are recommended for diagnosis of either severe or non-severe malnutrition. Intervention/Recommendation Comments 1. Continue with current diet as ordered. 2. Monitor PO intake, wt, labs and skin integrity 3. F/U as moderate risk in 3-5 days, 11/08-11/10 Expected Outcomes/Goals Expected Outcomes/Goals 1. PO intake to meet at least 75% of nutritional needs. 2. Wt stability, skin to remain intact, labs to approach WNL.
[2017-11-18] MEDS: OLANZapine 5 mg Oral Disintegrating Tab PO SCH ×2 (08:09→16:46)
[2017-11-18] MEDS: INSULIN ASPART SLIDING SCALE 100 UNITS/ML UNIT SUBQ SCH ×4 (08:11→21:55)
[2017-11-18] MEDS ORDERED: Probiotic Screen MC PRN (09:08)
[2017-11-18] MEDS: Lactobacillus Rhamnosus GG 15 Billion CFU CAP.SPRINK PO SCH (09:56)
[2017-11-18] MEDS: Insulin Detemir 100 units/mL 10mL Vial SUBQ SCH (09:57)
[2017-11-18] MEDS: Vancomycin HCl 1.5 GM in Sodium Chloride 0.9% 500 ML IV SCH ×2 (09:58→11:48)
[2017-11-18] MEDS: Venelex 60gm Tube TP SCH (11:50)
--- NOTE | 2017-11-18 14:21 | Infectious Disease Prog Note ---
Infectious Disease Subjective - Review of Systems Service Date: 11/18/17 Subjective: No fever Infectious Disease Objective - Results Result Diagrams: 11/13/17 07:00 11/17/17 13:00 Recent Labs: Laboratory Last Values WBC 10.2 Th/cmm (4.8-10.8) 11/13/17 07:00 RBC 4.18 Mil/cmm (3.80-5.80) 11/13/17 07:00 Hgb 12.5 gm/dL (12-16) 11/13/17 07:00 Hct 37.9 % (41.0-60) L 11/13/17 07:00 MCV 90.6 fl (80-99) 11/13/17 07:00 MCH 29.9 pg (27.0-31.0) 11/13/17 07:00 MCHC Differential 33.0 pg (28.0-36.0) 11/13/17 07:00 RDW 16.5 % (11.5-20.0) 11/13/17 07:00 Plt Count 283 Th/cmm (150-400) 11/13/17 07:00 MPV 8.0 fl 11/13/17 07:00 Neutrophils % 64.6 % (40.0-80.0) 11/13/17 07:00 Lymphocytes % 26.9 % (20.0-50.0) 11/13/17 07:00 Monocytes % 5.3 % (2.0-10.0) 11/13/17 07:00 Eosinophils % 2.8 % (0.0-5.0) 11/13/17 07:00 Basophils % 0.4 % (0.0-2.0) 11/13/17 07:00 PT 9.5 SECONDS (9.5-11.5) 11/05/17 21:35 INR 0.91 (0.5-1.4) 11/05/17 21:35 Sodium 132 mEq/L (136-145) L 11/13/17 07:00 Potassium 3.9 mEq/L (3.5-5.1) 11/13/17 07:00 Chloride 99 mEq/L (98-107) 11/13/17 07:00 Carbon Dioxide 23.2 mEq/L (21.0-31.0) 11/13/17 07:00 Anion Gap 13.7 (7.0-16.0) 11/13/17 07:00 BUN 15 mg/dL (7-25) 11/17/17 13:00 Creatinine 0.8 mg/dL (0.7-1.3) 11/17/17 13:00 Est GFR ( Amer) TNP 11/13/17 07:00 Est GFR (Non-Af Amer) TNP 11/13/17 07:00 BUN/Creatinine Ratio 11.1 11/13/17 07:00 Glucose 256 mg/dL (70-105) H 11/13/17 07:00 POC Glucose 258 MG/DL (70 - 105) H 11/18/17 11:42 Hemoglobin A1c % 8.8 % (4.0-6.0) H 11/13/17 07:00 Calcium 8.7 mg/dL (8.6-10.3) 11/13/17 07:00 Urine Source ANDRE PORT 11/11/17 21:30 Urine Color YELLOW 11/11/17 21:30 Urine Clarity HAZY (CLEAR) 11/11/17 21:30 Urine pH 5.5 (4.6 - 8.0) 11/11/17 21:30 Ur Specific [place] 1.010 (1.005-1.030) 11/11/17 21:30 Urine Protein NEGATIVE mg/dL (NEGATIVE) 11/11/17 21:30 Urine Glucose (UA) >=1000 mg/dL (NEGATIVE) H 11/11/17 21:30 Urine Ketones NEGATIVE mg/dL (NEGATIVE) 11/11/17 21:30 Urine Blood LARGE (NEGATIVE) H 11/11/17 21:30 Urine Nitrate NEGATIVE (NEGATIVE) 11/11/17 21:30 Urine Bilirubin NEGATIVE (NEGATIVE) 11/11/17 21:30 Urine Urobilinogen 0.2 E.U./dL (0.2 - 1.0) 11/11/17 21:30 Ur Leukocyte Esterase SMALL (NEGATIVE) H 11/11/17 21:30 Urine RBC 10-25 /hpf (0-5) H 11/11/17 21:30 Urine WBC 2-5 /hpf (0-5) 11/11/17 21:30 Ur Epithelial Cells OCCASIONAL /lpf (FEW) 11/11/17 21:30 Urine Bacteria FEW /hpf (NONE SEEN) 11/11/17 21:30 Urine Yeast FEW /hpf (NONE SEEN) H 11/11/17 21:30 Vancomycin Trough 21.0 ug/mL (10-20) H 11/15/17 13:00 Random Vancomycin 23.1 ug/mL (5.0-40.0) 11/17/17 13:00 - Physical Exam Vitals and I&O: Vital Signs Temp 97.4 F 11/18/17 11:18 Pulse 67 11/18/17 11:18 Resp 17 11/18/17 11:18 BP 120/75 11/18/17 11:18 Pulse Ox 97 11/18/17 11:18 Intake & Output 11/17/17 11/18/17 11/18/17 18:59 06:59 18:59 Intake Total 600 200 Output Total 600 750 Balance 0 -750 200 Weight (lbs) 76.204 kg 75.841 kg 75.841 kg Intake: Oral 600 200 Output: Urine 600 750 Other: # Bowel Movements 2 Weight Source Bedscale Bedscale Bedscale Active Medications: Current Medications Acetaminophen (Tylenol) 650 mg PO Q6H PRN PRN Reason: mild to moderate pain Stop: 12/30/17 23:24 Last Admin: 11/15/17 02:33 Dose: 650 mg Acetaminophen/Hydrocodone Bitart ([place] 5mg/325mg) 1 tab PO Q6H PRN PRN Reason: Pain (Moderate) Stop: 12/30/17 23:24 Last Admin: 11/14/17 05:34 Dose: 1 tab Allopurinol (Zyloprim) 100 mg PO DAILY [facility] Stop: 12/30/17 23:24 Last Admin: 11/18/17 08:10 Dose: 100 mg [place] Oil/[place] Balsam/Trypsin (Venelex) 1 appl TP DAILY [facility] Stop: 12/30/17 23:24 Last Admin: 11/18/17 11:50 Dose: 1 appl Clonazepam (Klonopin) 1 mg PO BID [facility] PRN Reason: Protocol Stop: 12/31/17 09:59 Last Admin: 11/18/17 08:10 Dose: 1 mg Docusate Sodium (Colace) 100 mg PO DAILY [facility] Stop: 01/15/18 08:59 Last Admin: 11/18/17 08:10 Dose: 100 mg Donepezil HCl (Aricept) 10 mg PO DAILY [facility] Stop: 01/12/18 08:00 Last Admin: 11/18/17 08:09 Dose: 10 mg Doxycycline Hyclate (Vibramycin) 100 mg PO Q12HR [facility] Stop: 01/11/18 08:59 Last Admin: 11/18/17 08:10 Dose: 100 mg Famotidine (Pepcid) 20 mg PO BID [facility] Stop: 12/30/17 23:24 Last Admin: 11/18/17 08:10 Dose: 20 mg Fluconazole (Diflucan) 100 mg PO DAILY [facility] Stop: 12/30/17 23:24 Last Admin: 11/18/17 08:09 Dose: 100 mg Heparin Sodium (Porcine) (Heparin) 5,000 units SUBQ Q12HR IMM[facility]UEL PRN Reason: Protocol Stop: 12/30/17 23:24 Last Admin: 11/18/17 08:11 Dose: 5,000 units Vancomycin HCl 1.5 gm/ Sodium (Chloride) 500 mls @ 250 mls/hr IV Q24H [facility] Stop: 01/17/18 08:59 Last Admin: 11/18/17 11:48 Dose: 250 mls/hr Insulin Aspart (Novolog Insulin Sliding Scale) 0 units SUBQ ACHS [facility] PRN Reason: Protocol Stop: 12/31/17 07:29 Last Admin: 11/18/17 11:56 Dose: 6 units Insulin Detemir (Levemir Insulin) 20 units SUBQ DAILY [facility] PRN Reason: Protocol Stop: 01/12/18 06:20 Last Admin: 11/18/17 09:57 Dose: Not Given Lactobacillus Rhamnosus (Culturelle 15b) 1 each PO DAILY [facility] Stop: 01/17/18 08:59 Last Admin: 11/18/17 09:56 Dose: 1 each Magnesium Hydroxide (Milk Of Magnesia) 30 ml PO HS PRN PRN Reason: Constipation Stop: 12/30/17 23:24 Metformin HCl (Glucophage) 1,000 mg PO DAILY [facility] Stop: 12/31/17 09:59 Last Admin: 11/18/17 08:10 Dose: 1,000 mg Metoprolol Succinate (Toprol Xl) 25 mg PO DAILY [facility] Stop: 12/30/17 23:24 Last Admin: 11/18/17 08:09 Dose: 25 mg Miscellaneous (Vte Chemical Prophylaxis Screen/ Admission) 1 ea MC PRN PRN PRN Reason: PROTOCOL Stop: 12/31/17 10:29 Miscellaneous (Vancomycin Iv Per Pharmacy) 1 ea MC DAILY [facility] Stop: 01/16/18 08:59 Miscellaneous (Probiotic Screen) 1 ea MC PRN PRN PRN Reason: PROTOCOL Stop: 01/17/18 09:07 Olanzapine (Zyprexa Zydis) 10 mg PO BID [facility] PRN Reason: Protocol Stop: 01/05/18 07:53 Last Admin: 11/18/17 08:09 Dose: 10 mg Zolpidem Tartrate (Ambien) 5 mg PO HS PRN PRN Reason: insomnia Stop: 12/30/17 23:24 Last Admin: 11/03/17 19:55 Dose: 5 mg General: no acute distress, well developed, well nourished HEENT: atraumatic, normocephalic, PERRLA, EOMI, moist mucous membrane Neck: supple, no thyromegaly Cardiovascular: S1S2, regular Lungs: clear to auscultation bilaterally, clear to percussion Abdomen: soft, no tender, no distended, no hepatomegaly, no bowel sounds Extremities: no cyanosis, no clubbing, no edema Neurological: awake, alert Skin: other (sacral stage 3 wound) - Procedures Procedures: Procedures Procedure Code Date JEWEL MUSC/FASCIA 20 SQ CM/< 55435 10/12/17 EXCISION OF RIGHT HIP MUSCLE, OPEN APPROACH [id number] 10/12/17 INTRODUCTION OF SERUM/TOX/VACCINE INTO MUSCLE, PERC APPROACH [id number] 10/12/17 Infectious Disease Assmt/Plan - Assessment Assessment: 1. Sacral decubitus ulcer. 2. UTI. Treated 3. Dementia. - Plan Plan: wound care. Nutritional Asmnt/Malnutr-PDOC - Dietary Evaluation Malnutrition Findings (Please click <Entered> for more info): Nutritional Asmnt/Malnutrition Start: 11/05/17 16: 25 Text: Status: Complete Freq: Document 11/05/17 16:25 GREY (Rec: 11/05/17 16:31 GREY [email or web address]) Nutritional Asmnt/Malnutrition Patient General Information Nutritional Screening Moderate Risk Diagnosis dehydration Pertinent Medical Hx/Surgical Hx DM, dementia, depression, psychosis, schizophrenia, chronic renal insuff Subjective Information Pt is agitated, on 1:1 sitter. Per EMR, PO intake 25-75%, avg 50%. Current Diet Order/ Nutrition Support pureed, CCHO 60gm Pertinent Medications novolov, levemir, glucophage Pertinent Labs 11/03- POC 181-316 Nutritional Hx/Data Height 1.8 m Height (Calculated Centimeters) 180.3 Current Weight (lbs) 77.111 kg Weight (Calculated Kilograms) 77.1 Weight (Calculated Grams) 68474.7 [place] Body Weight 172 Body Mass Index (BMI) 23.7 Weight Status Approriate GI Symptoms GI Symptoms None Last BM 11/03 Difficult in: None Skin Integrity/Comment: pressure ulcer, decubitus Current %PO Fair (50-74%) Estimated Nutritional Goals BEE in Kcals: Using Current wt Calories/Kcals/Kg 25-30 Kcals Calculated 1921-1880 Protein: Using Current wt Protein g/k-1.2 Protein Calculated 77-92 Fluid: ml 1925-2310ml (1ml/kcal) Nutritional Problem 1. Problem Problem altered nutrition related lab values Etiology hx of DM Signs/Symptoms: glucose 169, POC 181-316 Malnutrition Alert Protein-Calorie Malnutrition N/A Is there a minimum of two criteria No selected? Query Text:Check all the applicable criteria. A minimum of two criteria are recommended for diagnosis of either severe or non-severe malnutrition. Intervention/Recommendation Comments 1. Continue with current diet as ordered. 2. Monitor PO intake, wt, labs and skin integrity 3. F/U as moderate risk in 3-5 days, 11/08-11/10 Expected Outcomes/Goals Expected Outcomes/Goals 1. PO intake to meet at least 75% of nutritional needs. 2. Wt stability, skin to remain intact, labs to approach WNL.
--- NOTE | 2017-11-19 07:45 | General Progress Note ---
Subjective - Review of Systems Service Date: 11/19/17 Subjective: Patient resting comfortably in bed. no acute distress. In good spirits today. pleasant. cooperative today. eating well. Blood Sugars improving. Will adjust dosage. Constipated this AM. Would like a stool softener.... Objective - Results Result Diagrams: 11/13/17 07:00 11/17/17 13:00 Recent Labs: Laboratory Last Values WBC 10.2 Th/cmm (4.8-10.8) 11/13/17 07:00 RBC 4.18 Mil/cmm (3.80-5.80) 11/13/17 07:00 Hgb 12.5 gm/dL (12-16) 11/13/17 07:00 Hct 37.9 % (41.0-60) L 11/13/17 07:00 MCV 90.6 fl (80-99) 11/13/17 07:00 MCH 29.9 pg (27.0-31.0) 11/13/17 07:00 MCHC Differential 33.0 pg (28.0-36.0) 11/13/17 07:00 RDW 16.5 % (11.5-20.0) 11/13/17 07:00 Plt Count 283 Th/cmm (150-400) 11/13/17 07:00 MPV 8.0 fl 11/13/17 07:00 Neutrophils % 64.6 % (40.0-80.0) 11/13/17 07:00 Lymphocytes % 26.9 % (20.0-50.0) 11/13/17 07:00 Monocytes % 5.3 % (2.0-10.0) 11/13/17 07:00 Eosinophils % 2.8 % (0.0-5.0) 11/13/17 07:00 Basophils % 0.4 % (0.0-2.0) 11/13/17 07:00 PT 9.5 SECONDS (9.5-11.5) 11/05/17 21:35 INR 0.91 (0.5-1.4) 11/05/17 21:35 Sodium 132 mEq/L (136-145) L 11/13/17 07:00 Potassium 3.9 mEq/L (3.5-5.1) 11/13/17 07:00 Chloride 99 mEq/L (98-107) 11/13/17 07:00 Carbon Dioxide 23.2 mEq/L (21.0-31.0) 11/13/17 07:00 Anion Gap 13.7 (7.0-16.0) 11/13/17 07:00 BUN 15 mg/dL (7-25) 11/17/17 13:00 Creatinine 0.8 mg/dL (0.7-1.3) 11/17/17 13:00 Est GFR ( Amer) TNP 11/13/17 07:00 Est GFR (Non-Af Amer) TNP 11/13/17 07:00 BUN/Creatinine Ratio 11.1 11/13/17 07:00 Glucose 256 mg/dL (70-105) H 11/13/17 07:00 POC Glucose 278 MG/DL (70 - 105) H 11/19/17 06:19 Hemoglobin A1c % 8.8 % (4.0-6.0) H 11/13/17 07:00 Calcium 8.7 mg/dL (8.6-10.3) 11/13/17 07:00 Urine Source [place]RE PORT 11/11/17 21:30 Urine Color YELLOW 11/11/17 21:30 Urine Clarity HAZY (CLEAR) 11/11/17 21:30 Urine pH 5.5 (4.6 - 8.0) 11/11/17 21:30 Ur Specific [place] 1.010 (1.005-1.030) 11/11/17 21:30 Urine Protein NEGATIVE mg/dL (NEGATIVE) 11/11/17 21:30 Urine Glucose (UA) >=1000 mg/dL (NEGATIVE) H 11/11/17 21:30 Urine Ketones NEGATIVE mg/dL (NEGATIVE) 11/11/17 21:30 Urine Blood LARGE (NEGATIVE) H 11/11/17 21:30 Urine Nitrate NEGATIVE (NEGATIVE) 11/11/17 21:30 Urine Bilirubin NEGATIVE (NEGATIVE) 11/11/17 21:30 Urine Urobilinogen 0.2 E.U./dL (0.2 - 1.0) 11/11/17 21:30 Ur Leukocyte Esterase SMALL (NEGATIVE) H 11/11/17 21:30 Urine RBC 10-25 /hpf (0-5) H 11/11/17 21:30 Urine WBC 2-5 /hpf (0-5) 11/11/17 21:30 Ur Epithelial Cells OCCASIONAL /lpf (FEW) 11/11/17 21:30 Urine Bacteria FEW /hpf (NONE SEEN) 11/11/17 21:30 Urine Yeast FEW /hpf (NONE SEEN) H 11/11/17 21:30 Vancomycin Trough 21.0 ug/mL (10-20) H 11/15/17 13:00 Random Vancomycin 23.1 ug/mL (5.0-40.0) 11/17/17 13:00 - Physical Exam Vitals and I&O: Vital Signs Temp 98.9 F 11/19/17 04:00 Pulse 74 11/19/17 04:00 Resp 18 11/19/17 04:00 BP 116/70 11/19/17 04:00 Pulse Ox 94 11/19/17 04:00 Intake & Output 11/18/17 11/19/17 11/19/17 18:59 06:59 18:59 Intake Total 700 340 Output Total 600 1500 Balance 100 -1160 Weight (lbs) 75.75 kg 75.523 kg Intake: Oral 700 340 Output: Urine 600 1500 Other: # Bowel Movements 1 0 Weight Source Bedscale Bedscale Active Medications: Current Medications Acetaminophen (Tylenol) 650 mg PO Q6H PRN PRN Reason: mild to moderate pain Stop: 12/30/17 23:24 Last Admin: 11/15/17 02:33 Dose: 650 mg Acetaminophen/Hydrocodone Bitart ([place] 5mg/325mg) 1 tab PO Q6H PRN PRN Reason: Pain (Moderate) Stop: 12/30/17 23:24 Last Admin: 11/14/17 05:34 Dose: 1 tab Allopurinol (Zyloprim) 100 mg PO DAILY [facility] Stop: 12/30/17 23:24 Last Admin: 11/18/17 08:10 Dose: 100 mg [place] Oil/[place] Balsam/Trypsin (Venelex) 1 appl TP DAILY [facility] Stop: 12/30/17 23:24 Last Admin: 11/18/17 11:50 Dose: 1 appl Clonazepam (Klonopin) 1 mg PO BID [facility] PRN Reason: Protocol Stop: 12/31/17 09:59 Last Admin: 11/18/17 16:44 Dose: 1 mg Docusate Sodium (Colace) 100 mg PO DAILY [facility] Stop: 01/15/18 08:59 Last Admin: 11/18/17 08:10 Dose: 100 mg Donepezil HCl (Aricept) 10 mg PO DAILY [facility] Stop: 01/12/18 08:00 Last Admin: 11/18/17 08:09 Dose: 10 mg Doxycycline Hyclate (Vibramycin) 100 mg PO Q12HR [facility] Stop: 01/11/18 08:59 Last Admin: 11/18/17 21:54 Dose: 100 mg Famotidine (Pepcid) 20 mg PO BID [facility] Stop: 12/30/17 23:24 Last Admin: 11/18/17 16:44 Dose: 20 mg Fluconazole (Diflucan) 100 mg PO DAILY [facility] Stop: 12/30/17 23:24 Last Admin: 11/18/17 08:09 Dose: 100 mg Heparin Sodium (Porcine) (Heparin) 5,000 units SUBQ Q12HR [facility] PRN Reason: Protocol Stop: 12/30/17 23:24 Last Admin: 11/18/17 21:54 Dose: 5,000 units Vancomycin HCl 1.5 gm/ Sodium (Chloride) 500 mls @ 250 mls/hr IV Q24H [facility] Stop: 01/17/18 08:59 Last Admin: 11/18/17 11:48 Dose: 250 mls/hr Insulin Aspart (Novolog Insulin Sliding Scale) 0 units SUBQ ACHS [facility] PRN Reason: Protocol Stop: 12/31/17 07:29 Last Admin: 11/18/17 21:55 Dose: 4 units Insulin Detemir (Levemir Insulin) 20 units SUBQ DAILY [facility] PRN Reason: Protocol Stop: 01/12/18 06:20 Last Admin: 11/18/17 09:57 Dose: Not Given Lactobacillus Rhamnosus (Culturelle 15b) 1 each PO DAILY [facility] Stop: 01/17/18 08:59 Last Admin: 11/18/17 09:56 Dose: 1 each Magnesium Hydroxide (Milk Of Magnesia) 30 ml PO HS PRN PRN Reason: Constipation Stop: 12/30/17 23:24 Metformin HCl (Glucophage) 1,000 mg PO DAILY [facility] Stop: 12/31/17 09:59 Last Admin: 11/18/17 08:10 Dose: 1,000 mg Metoprolol Succinate (Toprol Xl) 25 mg PO DAILY [facility] Stop: 12/30/17 23:24 Last Admin: 11/18/17 08:09 Dose: 25 mg Miscellaneous (Vte Chemical Prophylaxis Screen/ Admission) 1 ea MC PRN PRN PRN Reason: PROTOCOL Stop: 12/31/17 10:29 Miscellaneous (Vancomycin Iv Per Pharmacy) 1 ea MC DAILY [facility] Stop: 01/16/18 08:59 Miscellaneous (Probiotic Screen) 1 ea MC PRN PRN PRN Reason: PROTOCOL Stop: 01/17/18 09:07 Olanzapine (Zyprexa Zydis) 10 mg PO BID [facility]EL PRN Reason: Protocol Stop: 01/05/18 07:53 Last Admin: 11/18/17 16:46 Dose: 10 mg Zolpidem Tartrate (Ambien) 5 mg PO HS PRN PRN Reason: insomnia Stop: 12/30/17 23:24 Last Admin: 11/03/17 19:55 Dose: 5 mg General: Alert, No acute distress HEENT: Atraumatic, PERRLA, EOMI Neck: Supple, JVD, +2 carotid pulse wo bruit Cardiovascular: Regular rate, Normal S1, Normal S2 Lungs: Clear to auscultation Abdomen: Bowel sounds, Soft Extremities: no Clubbing, no Cyanosis, no Edema Neurological: Sensation intact Skin: no Rash Psych/Mental Status: Other (psychosis) - Procedures Procedures: Procedures Procedure Code Date JEWEL MUSC/FASCIA 20 SQ CM/< 66737 10/12/17 EXCISION OF RIGHT HIP MUSCLE, OPEN APPROACH [id number] 10/12/17 INTRODUCTION OF SERUM/TOX/VACCINE INTO MUSCLE, PERC APPROACH [id number] 10/12/17 Assessment/Plan - Assessment Assessment: psychosis dementia Alzheimer's dementia diabetes mellitus not controlled. s/p wound debridement of sacral decubiti UTI hyperglycemia constipation - Plan Plan: continue current medications. will add doxycyline PO for hospice eval continue IV antibiotics stool softener Nutritional Asmnt/Malnutr-PDOC - Dietary Evaluation Malnutrition Findings (Please click <Entered> for more info): Nutritional Asmnt/Malnutrition Start: 11/05/17 16: 25 Text: Status: Complete Freq: Document 11/05/17 16:25 GREY (Rec: 11/05/17 16:31 GREY [email or web address]) Nutritional Asmnt/Malnutrition Patient General Information Nutritional Screening Moderate Risk Diagnosis dehydration Pertinent Medical Hx/Surgical Hx DM, dementia, depression, psychosis, schizophrenia, chronic renal insuff Subjective Information Pt is agitated, on 1:1 sitter. Per EMR, PO intake 25-75%, avg 50%. Current Diet Order/ Nutrition Support pureed, CCHO 60gm Pertinent Medications novolov, levemir, glucophage Pertinent Labs 11/03- POC 181-316 Nutritional Hx/Data Height 1.8 m Height (Calculated Centimeters) 180.3 Current Weight (lbs) 77.111 kg Weight (Calculated Kilograms) 77.1 Weight (Calculated Grams) 16059.7 [place] Body Weight 172 Body Mass Index (BMI) 23.7 Weight Status Approriate GI Symptoms GI Symptoms None Last BM 11/03 Difficult in: None Skin Integrity/Comment: pressure ulcer, decubitus Current %PO Fair (50-74%) Estimated Nutritional Goals BEE in Kcals: Using Current wt Calories/Kcals/Kg 25-30 Kcals Calculated 2084-2943 Protein: Using Current wt Protein g/k-1.2 Protein Calculated 77-92 Fluid: ml 1925-2310ml (1ml/kcal) Nutritional Problem 1. Problem Problem altered nutrition related lab values Etiology hx of DM Signs/Symptoms: glucose 169, POC 181-316 Malnutrition Alert Protein-Calorie Malnutrition N/A Is there a minimum of two criteria No selected? Query Text:Check all the applicable criteria. A minimum of two criteria are recommended for diagnosis of either severe or non-severe malnutrition. Intervention/Recommendation Comments 1. Continue with current diet as ordered. 2. Monitor PO intake, wt, labs and skin integrity 3. F/U as moderate risk in 3-5 days, 11/08-11/10 Expected Outcomes/Goals Expected Outcomes/Goals 1. PO intake to meet at least 75% of nutritional needs. 2. Wt stability, skin to remain intact, labs to approach WNL.
[2017-11-19] MEDS: INSULIN ASPART SLIDING SCALE 100 UNITS/ML UNIT SUBQ SCH ×4 (08:08→21:45)
[2017-11-19] MEDS: Insulin Detemir 100 units/mL 10mL Vial SUBQ SCH (08:09)
[2017-11-19 08:27] LABS: % BASOPHILS 0.5 % (0.0-2.0); % EOSINOPHILS 4.4 % (0.0-5.0); % MONOCYTES 6.1 % (2.0-10.0); EOSINOPHILE ABSOLUTE 0.4 Th/cmm (0.1-0.4); HEMATOCRIT 35.7 % (41.0-60); HEMOGLOBIN 11.6 gm/dL (12-16); LYMPHOCYTE ABSOLUTE 2.4 Th/cmm (1.5-3.0); MEAN CORPUSCULAR HEMOGLOBIN 29.7 pg (27.0-31.0); MEAN CORPUSCULAR HGB CONC 32.6 pg (28.0-36.0); MEAN PLATELET VOLUME 7.8 fl; MONOCYTE ABSOLUTE 0.5 Th/cmm (0.3-1.0); NEUTROPHILE ABSOLUTE 5.5 Th/cmm (1.8-8.0); PLATELET COUNT 306 Th/cmm (150-400); RED BLOOD COUNT 3.92 Mil/cmm (3.80-5.80); RED CELL DISTRIBUTION WIDTH 15.7 % (11.5-20.0); WHITE BLOOD COUNT 8.8 Th/cmm (4.8-10.8)
[2017-11-19] MEDS: Lactobacillus Rhamnosus GG 15 Billion CFU CAP.SPRINK PO SCH (08:28)
[2017-11-19] MEDS: OLANZapine 5 mg Oral Disintegrating Tab PO SCH ×2 (08:29→16:03)
[2017-11-19] MEDS: Venelex 60gm Tube TP SCH (08:33)
[2017-11-19] MEDS: Vancomycin HCl 1.5 GM in Sodium Chloride 0.9% 500 ML IV SCH (09:19)
--- NOTE | 2017-11-19 23:25 | Infectious Disease Prog Note ---
Infectious Disease Subjective - Review of Systems Service Date: 11/19/17 Subjective: No fever Infectious Disease Objective - Results Result Diagrams: 11/19/17 08:06 11/17/17 13:00 Recent Labs: Laboratory Last Values WBC 8.8 Th/cmm (4.8-10.8) 11/19/17 08:06 RBC 3.92 Mil/cmm (3.80-5.80) 11/19/17 08:06 Hgb 11.6 gm/dL (12-16) L 11/19/17 08:06 Hct 35.7 % (41.0-60) L 11/19/17 08:06 MCV 91.0 fl (80-99) 11/19/17 08:06 MCH 29.7 pg (27.0-31.0) 11/19/17 08:06 MCHC Differential 32.6 pg (28.0-36.0) 11/19/17 08:06 RDW 15.7 % (11.5-20.0) 11/19/17 08:06 Plt Count 306 Th/cmm (150-400) 11/19/17 08:06 MPV 7.8 fl 11/19/17 08:06 Neutrophils % 62.0 % (40.0-80.0) 11/19/17 08:06 Lymphocytes % 27.0 % (20.0-50.0) 11/19/17 08:06 Monocytes % 6.1 % (2.0-10.0) 11/19/17 08:06 Eosinophils % 4.4 % (0.0-5.0) 11/19/17 08:06 Basophils % 0.5 % (0.0-2.0) 11/19/17 08:06 PT 9.5 SECONDS (9.5-11.5) 11/05/17 21:35 INR 0.91 (0.5-1.4) 11/05/17 21:35 Sodium 132 mEq/L (136-145) L 11/13/17 07:00 Potassium 3.9 mEq/L (3.5-5.1) 11/13/17 07:00 Chloride 99 mEq/L (98-107) 11/13/17 07:00 Carbon Dioxide 23.2 mEq/L (21.0-31.0) 11/13/17 07:00 Anion Gap 13.7 (7.0-16.0) 11/13/17 07:00 BUN 15 mg/dL (7-25) 11/17/17 13:00 Creatinine 0.8 mg/dL (0.7-1.3) 11/17/17 13:00 Est GFR ( Amer) TNP 11/13/17 07:00 Est GFR (Non-Af Amer) TNP 11/13/17 07:00 BUN/Creatinine Ratio 11.1 11/13/17 07:00 Glucose 256 mg/dL (70-105) H 11/13/17 07:00 POC Glucose 207 MG/DL (70 - 105) H 11/19/17 20:23 Hemoglobin A1c % 8.8 % (4.0-6.0) H 11/13/17 07:00 Calcium 8.7 mg/dL (8.6-10.3) 11/13/17 07:00 Urine Source ANDRE PORT 11/11/17 21:30 Urine Color YELLOW 11/11/17 21:30 Urine Clarity HAZY (CLEAR) 11/11/17 21:30 Urine pH 5.5 (4.6 - 8.0) 11/11/17 21:30 Ur Specific [place] 1.010 (1.005-1.030) 11/11/17 21:30 Urine Protein NEGATIVE mg/dL (NEGATIVE) 11/11/17 21:30 Urine Glucose (UA) >=1000 mg/dL (NEGATIVE) H 11/11/17 21:30 Urine Ketones NEGATIVE mg/dL (NEGATIVE) 11/11/17 21:30 Urine Blood LARGE (NEGATIVE) H 11/11/17 21:30 Urine Nitrate NEGATIVE (NEGATIVE) 11/11/17 21:30 Urine Bilirubin NEGATIVE (NEGATIVE) 11/11/17 21:30 Urine Urobilinogen 0.2 E.U./dL (0.2 - 1.0) 11/11/17 21:30 Ur Leukocyte Esterase SMALL (NEGATIVE) H 11/11/17 21:30 Urine RBC 10-25 /hpf (0-5) H 11/11/17 21:30 Urine WBC 2-5 /hpf (0-5) 11/11/17 21:30 Ur Epithelial Cells OCCASIONAL /lpf (FEW) 11/11/17 21:30 Urine Bacteria FEW /hpf (NONE SEEN) 11/11/17 21:30 Urine Yeast FEW /hpf (NONE SEEN) H 11/11/17 21:30 Vancomycin Trough 21.0 ug/mL (10-20) H 11/15/17 13:00 Random Vancomycin 23.1 ug/mL (5.0-40.0) 11/17/17 13:00 - Physical Exam Vitals and I&O: Vital Signs Temp 97.5 F 11/19/17 20:00 Pulse 70 11/19/17 20:00 Resp 18 11/19/17 20:00 BP 125/65 11/19/17 20:00 Pulse Ox 99 11/19/17 20:00 Intake & Output 11/19/17 11/19/17 11/20/17 06:59 18:59 06:59 Intake Total 340 800 Output Total 1500 1300 Balance -1160 -500 Weight (lbs) 75.523 kg 75.523 kg Intake: Oral 340 800 Output: Urine 1500 1300 Other: # Bowel Movements 0 0 Weight Source Bedscale Bedscale Active Medications: Current Medications Acetaminophen (Tylenol) 650 mg PO Q6H PRN PRN Reason: mild to moderate pain Stop: 12/30/17 23:24 Last Admin: 11/15/17 02:33 Dose: 650 mg Acetaminophen/Hydrocodone Bitart ([place] 5mg/325mg) 1 tab PO Q6H PRN PRN Reason: Pain (Moderate) Stop: 12/30/17 23:24 Last Admin: 11/14/17 05:34 Dose: 1 tab Allopurinol (Zyloprim) 100 mg PO DAILY IMMANUEL Stop: 12/30/17 23:24 Last Admin: 11/19/17 08:29 Dose: 100 mg [place] Oil/[place] Balsam/Trypsin (Venelex) 1 appl TP DAILY IMMANUEL Stop: 12/30/17 23:24 Last Admin: 11/19/17 08:33 Dose: 1 appl Clonazepam (Klonopin) 1 mg PO BID IMMANUEL PRN Reason: Protocol Stop: 12/31/17 09:59 Last Admin: 11/19/17 16:03 Dose: 1 mg Docusate Sodium (Colace) 100 mg PO DAILY IMMANUEL Stop: 01/15/18 08:59 Last Admin: 11/19/17 08:29 Dose: 100 mg Donepezil HCl (Aricept) 10 mg PO DAILY IMMANUEL Stop: 01/12/18 08:00 Last Admin: 11/19/17 08:29 Dose: 10 mg Famotidine (Pepcid) 20 mg PO BID IMMANUEL Stop: 12/30/17 23:24 Last Admin: 11/19/17 16:03 Dose: 20 mg Fluconazole (Diflucan) 100 mg PO DAILY IMMANUEL Stop: 12/30/17 23:24 Last Admin: 11/19/17 08:29 Dose: 100 mg Heparin Sodium (Porcine) (Heparin) 5,000 units SUBQ Q12HR IMMANUEL PRN Reason: Protocol Stop: 12/30/17 23:24 Last Admin: 11/19/17 21:44 Dose: 5,000 units Vancomycin HCl 1.5 gm/ Sodium (Chloride) 500 mls @ 250 mls/hr IV Q24H IMMANUEL Stop: 01/17/18 08:59 Last Admin: 11/19/17 09:19 Dose: 250 mls/hr Insulin Aspart (Novolog Insulin Sliding Scale) 0 units SUBQ ACHS IMMANUEL PRN Reason: Protocol Stop: 12/31/17 07:29 Last Admin: 11/19/17 21:45 Dose: 4 units Insulin Detemir (Levemir Insulin) 20 units SUBQ DAILY IMMANUEL PRN Reason: Protocol Stop: 01/12/18 06:20 Last Admin: 11/19/17 08:09 Dose: 20 units Lactobacillus Rhamnosus (Culturelle 15b) 1 each PO DAILY IMMANUEL Stop: 01/17/18 08:59 Last Admin: 11/19/17 08:28 Dose: 1 each Magnesium Hydroxide (Milk Of Magnesia) 30 ml PO HS PRN PRN Reason: Constipation Stop: 12/30/17 23:24 Metformin HCl (Glucophage) 1,000 mg PO DAILY IMMANUEL Stop: 12/31/17 09:59 Last Admin: 11/19/17 08:28 Dose: 1,000 mg Metoprolol Succinate (Toprol Xl) 25 mg PO DAILY IMMANUEL Stop: 12/30/17 23:24 Last Admin: 11/19/17 08:29 Dose: 25 mg Miscellaneous (Vte Chemical Prophylaxis Screen/ Admission) 1 ea PRN PRN PRN Reason: PROTOCOL Stop: 12/31/17 10:29 Miscellaneous (Vancomycin Iv Per Pharmacy) 1 ea MC DAILY IMMANUEL Stop: 01/16/18 08:59 Miscellaneous (Probiotic Screen) 1 ea MC PRN PRN PRN Reason: PROTOCOL Stop: 01/17/18 09:07 Olanzapine (Zyprexa Zydis) 10 mg PO BID IMMANUEL PRN Reason: Protocol Stop: 01/05/18 07:53 Last Admin: 11/19/17 16:03 Dose: 10 mg Zolpidem Tartrate (Ambien) 5 mg PO HS PRN PRN Reason: insomnia Stop: 12/30/17 23:24 Last Admin: 11/03/17 19:55 Dose: 5 mg - Procedures Procedures: Procedures Procedure Code Date JEWEL MUSC/FASCIA 20 SQ CM/< 26776 10/12/17 EXCISION OF RIGHT HIP MUSCLE, OPEN APPROACH [id number] 10/12/17 INTRODUCTION OF SERUM/TOX/VACCINE INTO MUSCLE, PERC APPROACH [id number] 10/12/17 Infectious Disease Assmt/Plan - Assessment Assessment: 1. Sacral decubitus ulcer. 2. UTI. Treated 3. Dementia. - Plan Plan: UA urine cs wound care. CPM. Nutritional Asmnt/Malnutr-PDOC - Dietary Evaluation Malnutrition Findings (Please click <Entered> for more info): Nutritional Asmnt/Malnutrition Start: 11/05/17 16: 25 Text: Status: Complete Freq: Document 11/05/17 16:25 [email or web address] (Rec: 11/05/17 16:31 [email or web address]) Nutritional Asmnt/Malnutrition Patient General Information Nutritional Screening Moderate Risk Diagnosis dehydration Pertinent Medical Hx/Surgical Hx DM, dementia, depression, psychosis, schizophrenia, chronic renal insuff Subjective Information Pt is agitated, on 1:1 sitter. Per EMR, PO intake 25-75%, avg 50%. Current Diet Order/ Nutrition Support pureed, CCHO 60gm Pertinent Medications novolov, levemir, glucophage Pertinent Labs 11/03- POC 181-316 Nutritional Hx/Data Height 1.8 m Height (Calculated Centimeters) 180.3 Current Weight (lbs) 77.111 kg Weight (Calculated Kilograms) 77.1 Weight (Calculated Grams) 06516.7 [place] Body Weight 172 Body Mass Index (BMI) 23.7 Weight Status Approriate GI Symptoms GI Symptoms None Last BM 11/03 Difficult in: None Skin Integrity/Comment: pressure ulcer, decubitus Current %PO Fair (50-74%) Estimated Nutritional Goals BEE in Kcals: Using Current wt Calories/Kcals/Kg 25-30 Kcals Calculated 5170-7956 Protein: Using Current wt Protein g/k-1.2 Protein Calculated 77-92 Fluid: ml 1925-2310ml (1ml/kcal) Nutritional Problem 1. Problem Problem altered nutrition related lab values Etiology hx of DM Signs/Symptoms: glucose 169, POC 181-316 Malnutrition Alert Protein-Calorie Malnutrition N/A Is there a minimum of two criteria No selected? Query Text:Check all the applicable criteria. A minimum of two criteria are recommended for diagnosis of either severe or non-severe malnutrition. Intervention/Recommendation Comments 1. Continue with current diet as ordered. 2. Monitor PO intake, wt, labs and skin integrity 3. F/U as moderate risk in 3-5 days, 11/08-11/10 Expected Outcomes/Goals Expected Outcomes/Goals 1. PO intake to meet at least 75% of nutritional needs. 2. Wt stability, skin to remain intact, labs to approach WNL.
[2017-11-20] MEDS: INSULIN ASPART SLIDING SCALE 100 UNITS/ML UNIT SUBQ SCH ×4 (07:43→21:54)
[2017-11-20] MEDS: Lactobacillus Rhamnosus GG 15 Billion CFU CAP.SPRINK PO SCH (08:32)
[2017-11-20] MEDS: OLANZapine 5 mg Oral Disintegrating Tab PO SCH ×2 (08:33→16:06)
[2017-11-20] MEDS: Venelex 60gm Tube TP SCH (08:38)
[2017-11-20] MEDS: Insulin Detemir 100 units/mL 10mL Vial SUBQ SCH (08:39)
[2017-11-20 09:01] LABS: % BASOPHILS 0.8 % (0.0-2.0); % EOSINOPHILS 4.9 % (0.0-5.0); % LYMPHOCYTES 37.8 % (20.0-50.0); % MONOCYTES 6.6 % (2.0-10.0); % NEUTROPHILS 49.9 % (40.0-80.0); BASOPHILE ABSOLUTE 0.1 Th/cumm (0-0.2); EOSINOPHILE ABSOLUTE 0.4 Th/cmm (0.1-0.4); HEMOGLOBIN 13.1 gm/dL (12-16); MEAN CELL VOLUME 91.2 fl (80-99); MEAN CORPUSCULAR HEMOGLOBIN 29.1 pg (27.0-31.0); MEAN PLATELET VOLUME 8.5 fl; MONOCYTE ABSOLUTE 0.5 Th/cmm (0.3-1.0); NEUTROPHILE ABSOLUTE 3.9 Th/cmm (1.8-8.0); PLATELET COUNT 282 Th/cmm (150-400); RED BLOOD COUNT 4.49 Mil/cmm (3.80-5.80); RED CELL DISTRIBUTION WIDTH 15.9 % (11.5-20.0); WHITE BLOOD COUNT 7.9 Th/cmm (4.8-10.8)
[2017-11-20 09:21] LABS: ALB/GLOB RATIO 0.9 (1.0-1.8); ALBUMIN 3.1 gm/dL (4.2-5.5); ALKALINE PHOSPHATASE 80 U/L (34-104); ANION GAP 11.9 (7.0-16.0); BILIRUBIN,TOTAL 0.3 mg/dL (0.3-1.0); BUN - UREA NITROGEN 13 mg/dL (7-25); CARBON DIOXIDE 27.8 mEq/L (21.0-31.0); CHLORIDE 103 mEq/L (98-107); CREATININE - SERUM 0.9 mg/dL (0.7-1.3); GLUCOSE 139 mg/dL (70-105); POTASSIUM SERUM 4.7 mEq/L (3.5-5.1); SGOT 14 U/L (13-39); SGPT/ALT 13 U/L (7-52); SODIUM SERUM 138 mEq/L (136-145); TOTAL PROTEIN,SERUM 6.7 gm/dL (6.0-8.3)
[2017-11-20] MEDS: Vancomycin HCl 1.5 GM in Sodium Chloride 0.9% 500 ML IV SCH (10:09)
--- NOTE | 2017-11-20 23:48 | Infectious Disease Prog Note ---
Infectious Disease Subjective - Review of Systems Service Date: 11/20/17 Subjective: No fever Infectious Disease Objective - Results Result Diagrams: 11/20/17 08:00 11/20/17 08:00 Recent Labs: Laboratory Last Values WBC 7.9 Th/cmm (4.8-10.8) 11/20/17 08:00 RBC 4.49 Mil/cmm (3.80-5.80) 11/20/17 08:00 Hgb 13.1 gm/dL (12-16) 11/20/17 08:00 Hct 41.0 % (41.0-60) D 11/20/17 08:00 MCV 91.2 fl (80-99) 11/20/17 08:00 MCH 29.1 pg (27.0-31.0) 11/20/17 08:00 MCHC Differential 32.0 pg (28.0-36.0) 11/20/17 08:00 RDW 15.9 % (11.5-20.0) 11/20/17 08:00 Plt Count 282 Th/cmm (150-400) 11/20/17 08:00 MPV 8.5 fl 11/20/17 08:00 Neutrophils % 49.9 % (40.0-80.0) 11/20/17 08:00 Lymphocytes % 37.8 % (20.0-50.0) 11/20/17 08:00 Monocytes % 6.6 % (2.0-10.0) 11/20/17 08:00 Eosinophils % 4.9 % (0.0-5.0) 11/20/17 08:00 Basophils % 0.8 % (0.0-2.0) 11/20/17 08:00 PT 9.5 SECONDS (9.5-11.5) 11/05/17 21:35 INR 0.91 (0.5-1.4) 11/05/17 21:35 Sodium 138 mEq/L (136-145) 11/20/17 08:00 Potassium 4.7 mEq/L (3.5-5.1) 11/20/17 08:00 Chloride 103 mEq/L (98-107) 11/20/17 08:00 Carbon Dioxide 27.8 mEq/L (21.0-31.0) 11/20/17 08:00 Anion Gap 11.9 (7.0-16.0) 11/20/17 08:00 BUN 13 mg/dL (7-25) 11/20/17 08:00 Creatinine 0.9 mg/dL (0.7-1.3) 11/20/17 08:00 Est GFR ( Amer) TNP 11/20/17 08:00 Est GFR (Non-Af Amer) TNP 11/20/17 08:00 BUN/Creatinine Ratio 14.4 11/20/17 08:00 Glucose 139 mg/dL (70-105) H 11/20/17 08:00 POC Glucose 136 MG/DL (70 - 105) H 11/20/17 21:30 Hemoglobin A1c % 8.8 % (4.0-6.0) H 11/13/17 07:00 Calcium 9.0 mg/dL (8.6-10.3) 11/20/17 08:00 Total Bilirubin 0.3 mg/dL (0.3-1.0) 11/20/17 08:00 AST 14 U/L (13-39) 11/20/17 08:00 ALT 13 U/L (7-52) 11/20/17 08:00 Alkaline Phosphatase 80 U/L (34-104) 11/20/17 08:00 Total Protein 6.7 gm/dL (6.0-8.3) 11/20/17 08:00 Albumin 3.1 gm/dL (4.2-5.5) L 11/20/17 08:00 Globulin 3.6 gm/dL 11/20/17 08:00 Albumin/Globulin Ratio 0.9 (1.0-1.8) L 11/20/17 08:00 Urine Source [place]RE [place] 11/11/17 21:30 Urine Color YELLOW 11/11/17 21:30 Urine Clarity HAZY (CLEAR) 11/11/17 21:30 Urine pH 5.5 (4.6 - 8.0) 11/11/17 21:30 Ur Specific [place] 1.010 (1.005-1.030) 11/11/17 21:30 Urine Protein NEGATIVE mg/dL (NEGATIVE) 11/11/17 21:30 Urine Glucose (UA) >=1000 mg/dL (NEGATIVE) H 11/11/17 21:30 Urine Ketones NEGATIVE mg/dL (NEGATIVE) 11/11/17 21:30 Urine Blood LARGE (NEGATIVE) H 11/11/17 21:30 Urine Nitrate NEGATIVE (NEGATIVE) 11/11/17 21:30 Urine Bilirubin NEGATIVE (NEGATIVE) 11/11/17 21:30 Urine Urobilinogen 0.2 E.U./dL (0.2 - 1.0) 11/11/17 21:30 Ur Leukocyte Esterase SMALL (NEGATIVE) H 11/11/17 21:30 Urine RBC 10-25 /hpf (0-5) H 11/11/17 21:30 Urine WBC 2-5 /hpf (0-5) 11/11/17 21:30 Ur Epithelial Cells OCCASIONAL /lpf (FEW) 11/11/17 21:30 Urine Bacteria FEW /hpf (NONE SEEN) 11/11/17 21:30 Urine Yeast FEW /hpf (NONE SEEN) H 11/11/17 21:30 Vancomycin Trough 16.7 ug/mL (5-10) H 11/20/17 08:00 Random Vancomycin 23.1 ug/mL (5.0-40.0) 11/17/17 13:00 - Physical Exam Vitals and I&O: Vital Signs Temp 97.2 F 11/20/17 15:16 Pulse 87 11/20/17 15:16 Resp 18 11/20/17 15:16 BP 149/86 11/20/17 15:16 Pulse Ox 98 11/20/17 15:16 Intake & Output 11/20/17 11/20/17 11/21/17 06:59 18:59 06:59 Intake Total 200 800 Output Total 1600 1200 Balance -1400 -400 Weight (lbs) 75.523 kg 75.523 kg Intake: Oral 200 800 Output: Urine 1600 1200 Other: # Bowel Movements 0 Weight Source Bedscale Bedscale Active Medications: Current Medications Acetaminophen (Tylenol) 650 mg PO Q6H PRN PRN Reason: mild to moderate pain Stop: 12/30/17 23:24 Last Admin: 11/15/17 02:33 Dose: 650 mg Acetaminophen/Hydrocodone Bitart ([place] 5mg/325mg) 1 tab PO Q6H PRN PRN Reason: Pain (Moderate) Stop: 12/30/17 23:24 Last Admin: 11/14/17 05:34 Dose: 1 tab Allopurinol (Zyloprim) 100 mg PO DAILY IMMANUEL Stop: 12/30/17 23:24 Last Admin: 11/20/17 08:32 Dose: 100 mg [place] Oil/[place] Balsam/Trypsin (Venelex) 1 appl TP DAILY IMMANUEL Stop: 12/30/17 23:24 Last Admin: 11/20/17 08:38 Dose: 1 appl Clonazepam (Klonopin) 1 mg PO BID IMMANUEL PRN Reason: Protocol Stop: 12/31/17 09:59 Last Admin: 11/20/17 16:06 Dose: 1 mg Docusate Sodium (Colace) 100 mg PO DAILY IMMANUEL Stop: 01/15/18 08:59 Last Admin: 11/20/17 08:32 Dose: 100 mg Donepezil HCl (Aricept) 10 mg PO DAILY IMMANUEL Stop: 01/12/18 08:00 Last Admin: 11/20/17 08:32 Dose: 10 mg Famotidine (Pepcid) 20 mg PO BID IMMANUEL Stop: 12/30/17 23:24 Last Admin: 11/20/17 16:06 Dose: 20 mg Fluconazole (Diflucan) 100 mg PO DAILY IMMANUEL Stop: 12/30/17 23:24 Last Admin: 11/20/17 08:32 Dose: 100 mg Heparin Sodium (Porcine) (Heparin) 5,000 units SUBQ Q12HR IMMANUEL PRN Reason: Protocol Stop: 12/30/17 23:24 Last Admin: 11/20/17 21:52 Dose: 5,000 units Vancomycin HCl 1.5 gm/ Sodium (Chloride) 500 mls @ 250 mls/hr IV Q24H [facility] Stop: 01/17/18 08:59 Last Admin: 11/20/17 10:09 Dose: 250 mls/hr Insulin Aspart (Novolog Insulin Sliding Scale) 0 units SUBQ ACHS IMMANUEL PRN Reason: Protocol Stop: 12/31/17 07:29 Last Admin: 11/20/17 21:54 Dose: Not Given Insulin Detemir (Levemir Insulin) 20 units SUBQ DAILY IMMANUEL PRN Reason: Protocol Stop: 01/12/18 06:20 Last Admin: 11/20/17 08:39 Dose: 20 units Lactobacillus Rhamnosus (Culturelle 15b) 1 each PO DAILY IMMANUEL Stop: 01/17/18 08:59 Last Admin: 11/20/17 08:32 Dose: 1 each Magnesium Hydroxide (Milk Of Magnesia) 30 ml PO HS PRN PRN Reason: Constipation Stop: 12/30/17 23:24 Metformin HCl (Glucophage) 1,000 mg PO DAILY IMMANUEL Stop: 12/31/17 09:59 Last Admin: 11/20/17 08:32 Dose: 1,000 mg Metoprolol Succinate (Toprol Xl) 25 mg PO DAILY IMMANUEL Stop: 12/30/17 23:24 Last Admin: 11/20/17 08:33 Dose: 25 mg Miscellaneous (Vte Chemical Prophylaxis Screen/ Admission) 1 ea PRN PRN PRN Reason: PROTOCOL Stop: 12/31/17 10:29 Miscellaneous (Vancomycin Iv Per Pharmacy) 1 ea MC DAILY IMMANUEL Stop: 01/16/18 08:59 Miscellaneous (Probiotic Screen) 1 ea PRN PRN PRN Reason: PROTOCOL Stop: 01/17/18 09:07 Olanzapine (Zyprexa Zydis) 10 mg PO BID IMMANUEL PRN Reason: Protocol Stop: 01/05/18 07:53 Last Admin: 11/20/17 16:06 Dose: 10 mg Zolpidem Tartrate (Ambien) 5 mg PO HS PRN PRN Reason: insomnia Stop: 12/30/17 23:24 Last Admin: 11/03/17 19:55 Dose: 5 mg General: no acute distress, well developed, well nourished HEENT: atraumatic, normocephalic, PERRLA, EOMI Neck: supple, no thyromegaly Cardiovascular: S1S2, regular Lungs: clear to auscultation bilaterally, clear to percussion Abdomen: soft, no tender, no distended, no mass Extremities: no cyanosis, no clubbing Neurological: awake, alert, oriented Skin: other (sacral wound) - Procedures Procedures: Procedures Procedure Code Date JEWEL MUSC/FASCIA 20 SQ CM/< 90200 10/12/17 EXCISION OF RIGHT HIP MUSCLE, OPEN APPROACH [id number] 10/12/17 INTRODUCTION OF SERUM/TOX/VACCINE INTO MUSCLE, PERC APPROACH [id number] 10/12/17 Infectious Disease Assmt/Plan - Assessment Assessment: 1. Sacral decubitus ulcer. 2. UTI. Treated 3. Dementia. - Plan Plan: UA urine cs wound care. CPM. Nutritional Asmnt/Malnutr-PDOC - Dietary Evaluation Malnutrition Findings (Please click <Entered> for more info): Nutritional Asmnt/Malnutrition Start: 11/05/17 16: 25 Text: Status: Complete Freq: Document 11/05/17 16:25 GREY (Rec: 11/05/17 16:31 GREY [email or web address]) Nutritional Asmnt/Malnutrition Patient General Information Nutritional Screening Moderate Risk Diagnosis dehydration Pertinent Medical Hx/Surgical Hx DM, dementia, depression, psychosis, schizophrenia, chronic renal insuff Subjective Information Pt is agitated, on 1:1 sitter. Per EMR, PO intake 25-75%, avg 50%. Current Diet Order/ Nutrition Support pureed, CCHO 60gm Pertinent Medications novolov, levemir, glucophage Pertinent Labs POC 181-316 Nutritional Hx/Data Height 1.8 m Height (Calculated Centimeters) 180.3 Current Weight (lbs) 77.111 kg Weight (Calculated Kilograms) 77.1 Weight (Calculated Grams) 02153.7 [place] Body Weight 172 Body Mass Index (BMI) 23.7 Weight Status Approriate GI Symptoms GI Symptoms None Last BM 11/03 Difficult in: None Skin Integrity/Comment: pressure ulcer, decubitus Current %PO Fair (50-74%) Estimated Nutritional Goals BEE in Kcals: Using Current wt Calories/Kcals/Kg 25-30 Kcals Calculated 0347-0086 Protein: Using Current wt Protein g/k-1.2 Protein Calculated 77-92 Fluid: ml 1925-2310ml (1ml/kcal) Nutritional Problem 1. Problem Problem altered nutrition related lab values Etiology hx of DM Signs/Symptoms: glucose 169, POC 181-316 Malnutrition Alert Protein-Calorie Malnutrition N/A Is there a minimum of two criteria No selected? Query Text:Check all the applicable criteria. A minimum of two criteria are recommended for diagnosis of either severe or non-severe malnutrition. Intervention/Recommendation Comments 1. Continue with current diet as ordered. 2. Monitor PO intake, wt, labs and skin integrity 3. F/U as moderate risk in 3-5 days, 11/08-11/10 Expected Outcomes/Goals Expected Outcomes/Goals 1. PO intake to meet at least 75% of nutritional needs. 2. Wt stability, skin to remain intact, labs to approach WNL.
[2017-11-21] MEDS: INSULIN ASPART SLIDING SCALE 100 UNITS/ML UNIT SUBQ SCH ×4 (08:16→21:10)
[2017-11-21] MEDS: Lactobacillus Rhamnosus GG 15 Billion CFU CAP.SPRINK PO SCH ×2 (08:51→09:05)
[2017-11-21] MEDS: OLANZapine 5 mg Oral Disintegrating Tab PO SCH ×3 (08:52→16:03)
[2017-11-21] MEDS: Insulin Detemir 100 units/mL 10mL Vial SUBQ SCH (08:54)
[2017-11-21] MEDS: Venelex 60gm Tube TP SCH (09:02)
[2017-11-21] MEDS: Vancomycin HCl 1.5 GM in Sodium Chloride 0.9% 500 ML IV SCH (09:48)
[2017-11-21 14:23] LABS: URINE MICROSCOPIC INDICATED? YES; URINE SOURCE FOLEY PORT
[2017-11-21 14:26] LABS: URINE BILIRUBIN NEGATIVE (NEGATIVE); URINE BLOOD MODERATE (NEGATIVE); URINE GLUCOSE (UA) 100 mg/dL (NEGATIVE); URINE KETONE NEGATIVE (NEGATIVE); URINE LEUKOCYTE ESTERASE LARGE (NEGATIVE); URINE NITRATE NEGATIVE (NEGATIVE); URINE PROTEIN NEGATIVE (NEGATIVE); URINE UROBILINOGEN 0.2 E.U./dL (0.2 - 1.0)
[2017-11-21 14:41] LABS: URINE CLARITY CLOUDY (CLEAR); URINE COLOR YELLOW
[2017-11-21 14:48] LABS: URINE BACTERIA NONE SEEN /hpf (NONE SEEN); URINE EPITHELIAL CELLS RARE /lpf (FEW); URINE YEAST MANY /hpf (NONE SEEN)
--- NOTE | 2017-11-21 15:07 | Infectious Disease Prog Note ---
Infectious Disease Subjective - Review of Systems Service Date: 11/21/17 Subjective: No fever Infectious Disease Objective - Results Result Diagrams: 11/20/17 08:00 11/20/17 08:00 Recent Labs: Laboratory Last Values WBC 7.9 Th/cmm (4.8-10.8) 11/20/17 08:00 RBC 4.49 Mil/cmm (3.80-5.80) 11/20/17 08:00 Hgb 13.1 gm/dL (12-16) 11/20/17 08:00 Hct 41.0 % (41.0-60) D 11/20/17 08:00 MCV 91.2 fl (80-99) 11/20/17 08:00 MCH 29.1 pg (27.0-31.0) 11/20/17 08:00 MCHC Differential 32.0 pg (28.0-36.0) 11/20/17 08:00 RDW 15.9 % (11.5-20.0) 11/20/17 08:00 Plt Count 282 Th/cmm (150-400) 11/20/17 08:00 MPV 8.5 fl 11/20/17 08:00 Neutrophils % 49.9 % (40.0-80.0) 11/20/17 08:00 Lymphocytes % 37.8 % (20.0-50.0) 11/20/17 08:00 Monocytes % 6.6 % (2.0-10.0) 11/20/17 08:00 Eosinophils % 4.9 % (0.0-5.0) 11/20/17 08:00 Basophils % 0.8 % (0.0-2.0) 11/20/17 08:00 PT 9.5 SECONDS (9.5-11.5) 11/05/17 21:35 INR 0.91 (0.5-1.4) 11/05/17 21:35 Sodium 138 mEq/L (136-145) 11/20/17 08:00 Potassium 4.7 mEq/L (3.5-5.1) 11/20/17 08:00 Chloride 103 mEq/L (98-107) 11/20/17 08:00 Carbon Dioxide 27.8 mEq/L (21.0-31.0) 11/20/17 08:00 Anion Gap 11.9 (7.0-16.0) 11/20/17 08:00 BUN 13 mg/dL (7-25) 11/20/17 08:00 Creatinine 0.9 mg/dL (0.7-1.3) 11/20/17 08:00 Est GFR ( Amer) TNP 11/20/17 08:00 Est GFR (Non-Af Amer) TNP 11/20/17 08:00 BUN/Creatinine Ratio 14.4 11/20/17 08:00 Glucose 139 mg/dL (70-105) H 11/20/17 08:00 POC Glucose 246 MG/DL (70 - 105) H 11/21/17 11:56 Hemoglobin A1c % 8.8 % (4.0-6.0) H 11/13/17 07:00 Calcium 9.0 mg/dL (8.6-10.3) 11/20/17 08:00 Total Bilirubin 0.3 mg/dL (0.3-1.0) 11/20/17 08:00 AST 14 U/L (13-39) 11/20/17 08:00 ALT 13 U/L (7-52) 11/20/17 08:00 Alkaline Phosphatase 80 U/L (34-104) 11/20/17 08:00 Total Protein 6.7 gm/dL (6.0-8.3) 11/20/17 08:00 Albumin 3.1 gm/dL (4.2-5.5) L 11/20/17 08:00 Globulin 3.6 gm/dL 11/20/17 08:00 Albumin/Globulin Ratio 0.9 (1.0-1.8) L 11/20/17 08:00 Urine Source [place] 11/21/17 14:08 Urine Color YELLOW 11/21/17 14:08 Urine Clarity CLOUDY (CLEAR) 11/21/17 14:08 Urine pH 6.0 (4.6 - 8.0) 11/21/17 14:08 Ur Specific [place] <= 1.005 (1.005-1.030) 11/21/17 14:08 Urine Protein NEGATIVE mg/dL (NEGATIVE) 11/21/17 14:08 Urine Glucose (UA) 100 mg/dL (NEGATIVE) H 11/21/17 14:08 Urine Ketones NEGATIVE mg/dL (NEGATIVE) 11/21/17 14:08 Urine Blood MODERATE (NEGATIVE) H 11/21/17 14:08 Urine Nitrate NEGATIVE (NEGATIVE) 11/21/17 14:08 Urine Bilirubin NEGATIVE (NEGATIVE) 11/21/17 14:08 Urine Urobilinogen 0.2 E.U./dL (0.2 - 1.0) 11/21/17 14:08 Ur Leukocyte Esterase LARGE (NEGATIVE) H 11/21/17 14:08 Urine RBC 5-10 /hpf (0-5) H 11/21/17 14:08 Urine WBC 10-25 /hpf (0-5) H 11/21/17 14:08 Ur Epithelial Cells RARE /lpf (FEW) 11/21/17 14:08 Urine Bacteria NONE SEEN /hpf (NONE SEEN) 11/21/17 14:08 Urine Yeast MANY /hpf (NONE SEEN) H 11/21/17 14:08 Vancomycin Trough 16.7 ug/mL (5-10) H 11/20/17 08:00 Random Vancomycin 23.1 ug/mL (5.0-40.0) 11/17/17 13:00 - Physical Exam Vitals and I&O: Vital Signs Temp 97.6 F 11/21/17 12:39 Pulse 87 11/21/17 12:39 Resp 18 11/21/17 12:39 BP 130/98 11/21/17 12:39 Pulse Ox 96 11/21/17 12:39 Intake & Output 11/20/17 11/21/17 11/21/17 18:59 06:59 18:59 Intake Total 1300 100 Output Total 1200 1700 Balance 100 -1600 Weight (lbs) 75.523 kg 75.296 kg Intake: Intake, IV Amount 500 Vancomycin HCl 1.5 gm In 500 Sodium Chloride 0.9% 500 ml @ 250 mls/hr IV Q24H [facility] Rx#:[id number] Oral 800 100 Output: Urine 1200 1700 Other: Weight Source Bedscale Bedscale Active Medications: Current Medications Acetaminophen (Tylenol) 650 mg PO Q6H PRN PRN Reason: mild to moderate pain Stop: 12/30/17 23:24 Last Admin: 11/15/17 02:33 Dose: 650 mg Acetaminophen/Hydrocodone Bitart ([place] 5mg/325mg) 1 tab PO Q6H PRN PRN Reason: Pain (Moderate) Stop: 12/30/17 23:24 Last Admin: 11/14/17 05:34 Dose: 1 tab Allopurinol (Zyloprim) 100 mg PO DAILY [facility] Stop: 12/30/17 23:24 Last Admin: 11/21/17 09:04 Dose: Not Given [place] Oil/[place] Balsam/Trypsin (Venelex) 1 appl TP DAILY [facility] Stop: 12/30/17 23:24 Last Admin: 11/21/17 09:02 Dose: Not Given Clonazepam (Klonopin) 1 mg PO BID [facility] PRN Reason: Protocol Stop: 12/31/17 09:59 Last Admin: 11/21/17 09:04 Dose: Not Given Docusate Sodium (Colace) 100 mg PO DAILY [facility] Stop: 01/15/18 08:59 Last Admin: 11/21/17 09:04 Dose: Not Given Donepezil HCl (Aricept) 10 mg PO DAILY [facility] Stop: 01/12/18 08:00 Last Admin: 11/21/17 09:04 Dose: Not Given Famotidine (Pepcid) 20 mg PO BID [facility] Stop: 12/30/17 23:24 Last Admin: 11/21/17 09:05 Dose: Not Given Fluconazole (Diflucan) 100 mg PO DAILY [facility] Stop: 12/30/17 23:24 Last Admin: 11/21/17 09:05 Dose: Not Given Heparin Sodium (Porcine) (Heparin) 5,000 units SUBQ Q12HR [facility] PRN Reason: Protocol Stop: 12/30/17 23:24 Last Admin: 11/21/17 09:01 Dose: Not Given Insulin Aspart (Novolog Insulin Sliding Scale) 0 units SUBQ ACHS [facility] PRN Reason: Protocol Stop: 12/31/17 07:29 Last Admin: 11/21/17 12:21 Dose: 4 units Insulin Detemir (Levemir Insulin) 20 units SUBQ DAILY [facility] PRN Reason: Protocol Stop: 01/12/18 06:20 Last Admin: 11/21/17 08:54 Dose: 20 units Lactobacillus Rhamnosus (Culturelle 15b) 1 each PO DAILY [facility] Stop: 01/17/18 08:59 Last Admin: 11/21/17 09:05 Dose: Not Given Lorazepam (Ativan) 1 mg IVP X1 PRN; Protocol PRN Reason: Agitation Stop: 01/20/18 14:48 Magnesium Hydroxide (Milk Of Magnesia) 30 ml PO HS PRN PRN Reason: Constipation Stop: 12/30/17 23:24 Metformin HCl (Glucophage) 1,000 mg PO DAILY [facility] Stop: 12/31/17 09:59 Last Admin: 11/21/17 09:05 Dose: Not Given Metoprolol Succinate (Toprol Xl) 25 mg PO DAILY [facility] Stop: 12/30/17 23:24 Last Admin: 11/21/17 09:05 Dose: Not Given Miscellaneous (Vte Chemical Prophylaxis Screen/ Admission) 1 ea PRN PRN PRN Reason: PROTOCOL Stop: 12/31/17 10:29 Miscellaneous (Probiotic Screen) 1 ea PRN PRN PRN Reason: PROTOCOL Stop: 01/17/18 09:07 Olanzapine (Zyprexa Zydis) 10 mg PO BID [facility] PRN Reason: Protocol Stop: 01/05/18 07:53 Last Admin: 11/21/17 09:05 Dose: Not Given Zolpidem Tartrate (Ambien) 5 mg PO HS PRN PRN Reason: insomnia Stop: 12/30/17 23:24 Last Admin: 11/03/17 19:55 Dose: 5 mg General: no acute distress, well developed, well nourished HEENT: atraumatic, normocephalic, PERRLA Neck: supple, no thyromegaly Cardiovascular: S1S2, regular Lungs: clear to auscultation bilaterally, clear to percussion Abdomen: soft, no tender, no distended, no mass Extremities: no cyanosis, no clubbing Neurological: awake, alert, oriented Skin: other (sacral wound.) - Procedures Procedures: Procedures Procedure Code Date JEWEL MUSC/FASCIA 20 SQ CM/< 23824 10/12/17 EXCISION OF RIGHT HIP MUSCLE, OPEN APPROACH [id number] 10/12/17 INTRODUCTION OF SERUM/TOX/VACCINE INTO MUSCLE, PERC APPROACH [id number] 10/12/17 Infectious Disease Assmt/Plan - Assessment Assessment: 1. Sacral decubitus ulcer. 2. UTI. Treated 3. Dementia. - Plan Plan: change antibiotics to doxy iv twice a day for 5 days. wound care. CPM. Nutritional Asmnt/Malnutr-PDOC - Dietary Evaluation Malnutrition Findings (Please click <Entered> for more info): Nutritional Asmnt/Malnutrition Start: 11/05/17 16: 25 Text: Status: Complete Freq: Document 11/05/17 16:25 GREY (Rec: 11/05/17 16:31 [email or web address] [id number]) Nutritional Asmnt/Malnutrition Patient General Information Nutritional Screening Moderate Risk Diagnosis dehydration Pertinent Medical Hx/Surgical Hx DM, dementia, depression, psychosis, schizophrenia, chronic renal insuff Subjective Information Pt is agitated, on 1:1 sitter. Per EMR, PO intake 25-75%, avg 50%. Current Diet Order/ Nutrition Support pureed, CCHO 60gm Pertinent Medications novolov, levemir, glucophage Pertinent Labs 11/03- POC 181-316 Nutritional Hx/Data Height 1.8 m Height (Calculated Centimeters) 180.3 Current Weight (lbs) 77.111 kg Weight (Calculated Kilograms) 77.1 Weight (Calculated Grams) 89789.7 [place] Body Weight 172 Body Mass Index (BMI) 23.7 Weight Status Approriate GI Symptoms GI Symptoms None Last BM 11/03 Difficult in: None Skin Integrity/Comment: pressure ulcer, decubitus Current %PO Fair (50-74%) Estimated Nutritional Goals BEE in Kcals: Using Current wt Calories/Kcals/Kg 25-30 Kcals Calculated [id number] Protein: Using Current wt Protein g/k-1.2 Protein Calculated 77-92 Fluid: ml 1925-2310ml (1ml/kcal) Nutritional Problem 1. Problem Problem altered nutrition related lab values Etiology hx of DM Signs/Symptoms: glucose 169, POC 181-316 Malnutrition Alert Protein-Calorie Malnutrition N/A Is there a minimum of two criteria No selected? Query Text:Check all the applicable criteria. A minimum of two criteria are recommended for diagnosis of either severe or non-severe malnutrition. Intervention/Recommendation Comments 1. Continue with current diet as ordered. 2. Monitor PO intake, wt, labs and skin integrity 3. F/U as moderate risk in 3-5 days, 11/08-11/10 Expected Outcomes/Goals Expected Outcomes/Goals 1. PO intake to meet at least 75% of nutritional needs. 2. Wt stability, skin to remain intact, labs to approach WNL.
== END 2017-11-21 23:15 | DRG 592 ==
LOC: MSI 23:20
PROVIDERS: ADMIT Family Medicine; ATTEND Family Medicine
DX: L89.153 Pressure ulcer of sacral region, stage 3 (principal); N39.0 Urinary tract infection, site not specified; F23 Brief psychotic disorder; F02.81 Dementia in other diseases classified elsewhere, unspecified severity, with behavioral disturbance; E11.65 Type 2 diabetes mellitus with hyperglycemia; B95.62 Methicillin resistant Staphylococcus aureus infection as the cause of diseases classified elsewhere; G30.9 Alzheimer's disease, unspecified; K59.00 Constipation, unspecified
CPT/HCPCS: 36415-UA; 80048-TC; 80053-TC; 80202-TC; 81001-TC; 82565-TC; 82948-90; 83036-90; 84520-TC; 85025-TC; 85610-TC; 87086-90; J1644; J1815; J1956; J2060; J3370; J7030; J7040; X3401; X6118; Z7610